=== PATIENT | male | born 1960 | race Caucasian/White ===

== ENCOUNTER 2017-12-26 14:43 | Inpatient (IN) | payer OTHER, MEDICARE ==
[~2017-12-26] VITALS: Ht 193 cm; Wt 98.4 kg
[2017-12-26] VITALS (7 sets, daily range): BP systolic 81–100; BP diastolic 46–56
[~2017-12-26 14:43] MED LIST: ASPIRIN EC81 M1 PO; ATORVASTATIN CA10 M1 PO; ATORVASTATIN CA40 MG PO; CEFAZOLIN SODIUM1 G1 IV; CEFAZOLIN2 GM/10 ML IV; CLOPIDOGREL75 M1 PO; ECONAZOLE NITRA15 GM TOP; FLAGYL500 MG PO; LATANOPROST2.5 ML OPH; LEVEMIR FL300 UNITS/ SC; LIDOCAINE-PRILO30 GM TOP; LIDOCAINE-PRILOCAINE; LINZESS145 MC1 PO; LISINOPRIL2.5 MG PO; LOPRESSOR50 M1 PO; LOVAZA1 G1 PO; METOPROLOL TART25 M1 PO; METOPROLOL TART50 M1 PO; METOPROLOL TART50 MG PO; MULTI-DAY VITA1 EACH TOP; NOVOLOG 10300 UNITS/ SC; ONE TOUCH ULTRA TEST; PERCOCET 5-3251 EACH PO; RENVELA800 M1 PO; RENVELA800 MG PO; SENOKOT-S TABL1 EACH PO; SENSIPAR30 M1 PO; SENSIPAR60 M1 PO; VITAMIN B-121000 MC3 TOP; VITAMIN D31000 UNI2 TOP
--- NOTE | 2017-12-26 14:46 | ED GENERAL ADULT ---
History of Present Illness General Chief Complaint: General Adult Stated Complaint: BIBA FEVER, NOT FEELING WELL Source: patient, family Exam Limitations: no limitations Vital Signs & Intake/Output Vital Signs & Intake/Output Vital Signs Date Time Temp Pulse Resp B/P B/P Pulse O2 O2 Flow FiO2 Mean Ox Delivery Rate 12/26 2325 102.0 12/267 108 94 12/26 2214 106 22 90/55 96 Nasal 2.0L Cannula 12/26 2199 108 20 100/56 97 Nasal 2.0L Cannula 12/26 2144 110 22 99/56 97 Nasal 2.0L Cannula 12/26 2129 124 22 81/53 96 Nasal 2.0L Cannula 12/26 2114 108 20 95/47 96 Nasal 2.0L Cannula 12/26 2109 96 Nasal 2.0L Cannula 12/26 2109 100.3 124 20 88/46 96 Nasal 2.0L Cannula 12/26 2057 98.6 124 16 82/50 98 Nasal 2.0L Cannula 12/26 2013 126 82/48 12/26 1925 98 20 80/42 96 Nasal 2.0L Cannula 12/26 1844 99 20 82/48 96 Nasal 2.0L Cannula 12/26 1817 96 18 84/54 96 Nasal 2.0L Cannula 12/26 1800 92 20 82/50 97 Nasal 2.0L Cannula 12/26 1735 97.7 12/26 1734 88 20 80/48 94 Room Air 12/26 1725 97.7 92 18 78/52 96 Room Air 12/26 1710 101.3 105 18 64/46 97 Room Air 12/26 1546 103.0 12/26 1545 Room Air Room Air 12/26 1446 103.0 112 18 112/65 96 Nasal 2.0L Cannula Triage Nurses Notes Reviewed? yes Onset: Gradual Duration: day(s): Timing: recent history Injury Environment: home Severity: moderate HPI: 57YO male with hx of CAD s/p quadruple bypass and recent stent (09/23) on plavix , DM, HTN, ESRD on dialysis, sepsis and endocarditis presents to ED complaining of fevers and chills while at dialysis today. Patient states that for the past 2 days he has felt generalized fatigue. The patient once in the legs, fever, chills, mental fogginess. Per patient and his the symptoms are present during previous episodes of sepsis. Patient denies abdominal pain, vomiting, diarrhea, constipation, sore throat, congestion, cough, ear pain, skin rash, chest pain, dyspnea. (Patsy FISHER,Lynn Ledesma) Allergies Coded Allergies: midodrine (HIVES 12/26/17) Reconcile Medications Aspirin (Ecotrin*) 81 MG TABLET.DR 1 TAB PO DAILY HEART/BLOOD (Reported) Atorvastatin Calcium 10 MG TABLET 1 TAB PO DAILY CHOLESTEROL (Reported) Cholecalciferol (Vitamin D3) (Vitamin D3) 2,000 UNIT TABLET 3 TAB PO DAILY VITAMIN SUPPORT (Reported) Cinacalcet HCl (Sensipar) 30 MG TABLET 1 TAB PO DAILY KIDNEYS (Reported) Clopidogrel Bisulfate (Clopidogrel) 75 MG TABLET 1 TAB PO DAILY BLOOD THINNER (Reported) Cyanocobalamin (Vitamin B-12) 1,000 MCG TABLET 1 TAB PO DAILY VITAMIN SUPPORT (Reported) Docusate Sodium 100 MG CAPSULE 1 CAP PO DAILY CONSTIPATION (Reported) Famotidine (Pepcid AC) 20 MG TABLET 1 TAB PO DAILY PRN GI (Reported) Folic Acid/Vit Bcomp,C (Dialyvite 800 Tablet) 0.8 MG TABLET 1 TAB PO DAILY VITAMIN SUPPORT (Reported) Lisinopril 2.5 MG TABLET 1 TAB PO DAILY HEART (Reported) Metoprolol Tartrate 25 MG TABLET 1 MG PO BID HEART/BP (Reported) Metoprolol Tartrate 25 MG TABLET 1 TAB PO Tuesday HEART/BP ( Reported) Metoprolol Tartrate (Lopressor) 50 MG TABLET 1 TAB PO BID HEART (Reported) Multivitamin (Daily Multiple Vitamin) 1 EACH TABLET 1 TAB PO DAILY VITAMIN SUPPORT (Reported) [employer]-3 Acid Ethyl Esters (Lovaza) 1 GRAM CAPSULE 1 CAP PO BID CHOLESTEROL ( Reported) Oxycodone HCl/Acetaminophen (Percocet 5-325 MG Tablet) 5 MG-325 MG TABLET 1 TAB PO Q6-PRN PRN PAIN (Reported) Sennosides (Senokot) 8.6 MG TABLET 1-2 TAB PO QPM CONSTIPATION (Reported) Sevelamer Carbonate (Renvela) 800 MG TABLET 1 TAB PO WM KIDNEYS (Reported) (Rusty MARTINEZ,Reginaldo Manzanares) Past History Travel History Traveled to [place] past 21 day No Medical History Any Pertinent Medical History? see below for history Neurological: NONE EENT: diabetic retinopathy Cardiovascular: CAD, hypertension, hyperlipidemia, PVD Respiratory: obstructive sleep apnea Hepatic: NONE Renal: ESRD on HD Musculoskeletal: RBKA Psychiatric: NONE Endocrine: diabetes, TYPE II Blood Disorders: anemia Cancer(s): NONE NURSE MIDWIFE/CLINICAL INSTRUCTOR/Reproductive: NONE History of MRSA: No History of VRE: No History of CDIFF: Yes Surgical History Surgical History: CABG, hernia repair-incisional, RIGHT BELOW THE KNEE AMPUTATION IN 2010 with revision 6 months postop status post left forearm AV fistula status post gastric sleeve status post angioplasty of the left popliteal artery, tibioperoneal trunk and posterior tibial artery Psychosocial History Who do you live with Spouse Services at Home Nursing, Occupational Therapy, Physical Therapy What is your primary language Portuguese Family History Hx Contributory? No (Lynn Mello) Review of Systems Review of Systems Constitutional: Reports: see HPI. EENTM: Reports: no symptoms. Respiratory: Reports: no symptoms. Cardiovascular: Reports: no symptoms. GI: Reports: no symptoms. Genitourinary: Reports: no symptoms. Musculoskeletal: Reports: no symptoms. Skin: Reports: no symptoms. Neurological/Psychological: Reports: no symptoms. Hematologic/Endocrine: Reports: no symptoms. Immunologic/Allergic: Reports: no symptoms. All Other Systems: Reviewed and Negative (Lynn Mello) Physical Exam Physical Exam General Appearance: well developed/nourished, no apparent distress, alert, awake Head: atraumatic, normal appearance Eyes: Bilateral: normal appearance, PERRL. Ears, Nose, Throat: normal pharynx, normal ENT inspection, hearing grossly normal Neck: normal inspection, supple, full range of motion Respiratory: normal breath sounds, no respiratory distress, lungs clear Cardiovascular: tachycardia Gastrointestinal: normal bowel sounds, soft, non-tender, no organomegaly Back: normal inspection, normal range of motion Extremities: normal range of motion, RLE amputation below knee Neurologic/Psych: awake, alert, oriented x 3 Skin: intact, normal color, warm/dry Core Measures ACS in differential dx? Yes CVA/TIA Diagnosis: No Sepsis Present: Yes Sepsis Focused Exam Completed? Yes (Lynn Mello) Progress Differential Diagnoses I considered the following diagnoses in my evaluation of the patient: [Sepsis, pneumonia, influenza, ACS, endocarditis, atrial fibrillation, arrhythmia, electrolyte abnormality] Plan of Care: Orders Procedure Date/time Status Heart Healthy Diet 12/27 B Active ICU LAB BUNDLE 12/27 0500 Active CBC WITHOUT DIFFERENTIAL 12/27 0500 Active TROPONIN LEVEL 12/26 2245 Active MAGNESIUM 12/26 2245 Active POTASSIUM 12/26 2245 Active WESTERGREN SED RATE 12/26 2245 Active EKG 12/26 2245 Active FingerStick- Glucose 12/26 2155 Active Wound Care/Dressing 12/26 215 Active Weight 12/26 215 Active VTE Mechanical Prophylaxis 12/26 215 Active Vital Signs 12/26 2153 Active Turn and Reposition 12/26 2153 Active Drains/Tubes 12/26 2153 Complete Teach/Educate 12/26 2153 Active Skin Integrity Protocol 12/26 2153 Active Skin/Pressure Ulcer Assess (Sk 12/26 2153 Active Precautions 12/26 2153 Active Pain Treatment and Response 12/26 2153 Active Nutritional Intake, Monitor 12/26 2153 Active Isolation 12/26 2153 Active CIWA 12/26 2153 Complete Patient Care Conference 12/26 2153 Active Activity/Ambulation 12/26 2153 Active VRE ACTIVE SURVIELLANCE 12/26 192 Active ACTIVE SURVEILLANCE NARES 12/26 192 Active TRC EVALUATION (GEN) 12/26 1913 Complete ECHOCARDIOGRAM 12/26 1904 Active US-SUPERFICIAL IMAGING EXTREMI 12/26 1902 Active STREP PNEUMO URINARY ANTIGEN 12/26 1858 Active LEGIONELLA URINARY ANTIGEN 12/26 1858 Active OXYGEN SETUP (GEN) 12/26 1857 Active PARTIAL THROMBOPLASTIN TIME 12/26 1857 Complete PROTHROMBIN TIME 12/26 1857 Complete ED Holding Orders 12/26 1845 Active Admit to inpatient 12/26 1845 Active Vital Signs 12/26 1845 Complete Code Status 12/26 1845 Active LACTIC ACID 12/26 1808 Complete Patient Data 12/26 1728 Active Admit to inpatient 12/26 1719 Active Patient Data 12/26 1639 Active THYROID STIMULATING HORMONE 12/26 1542 Active THYROXINE 12/26 1542 Active PROLACTIN 12/26 1542 Active GLYCOSYLATED HGB 12/26 1542 Active B-TYPE NATRIURETIC PEP (BNP) 12/26 1542 Active URINALYSIS 12/26 1509 Active RAPID VIRAL INFLUENZA A 12/26 1508 Complete BLOOD CULTURE 12/26 1508 Active TROPONIN LEVEL 12/26 1508 Active LACTIC ACID 12/26 1508 Active COMPREHENSIVE METABOLIC PANEL 12/26 1508 Active CBC WITHOUT DIFFERENTIAL 12/26 1508 Complete EKG 12/26 1508 Active Intake & Output 12/26 1449 Active CONTIN. POSITIVE AIRWAY PRESS 12/26 UNK Complete Lab Add-on Test 12/26 UNK Active Vital Signs 12/26 UNK Active Current Medications Sig/Bobo Start time Last Medication Dose Stop Time Status Admin Ceftazidime 1,000 MG Q24H 12/27 1800 AC (Fortaz) Atorvastatin Calcium 10 MG 1700 12/27 1700 AC (Lipitor) Aspirin Buffered 81 MG DAILY 12/27 1000 AC (Ecotrin) Cinacalcet 30 MG DAILY 12/27 1000 AC (Sensipar) Clopidogrel Bisulfate 75 MG DAILY 12/27 1000 AC (Plavix) Cyanocobalamin 1,000 MCG DAILY 12/27 1000 AC (Vitamin B12) Docusate Sodium 100 MG DAILY 12/27 1000 AC (Colace) Multivitamins 1 TAB DAILY 12/27 1000 AC (Nephrocaps) Sevelamer Carbonate 800 MG WM 12/27 0800 AC (Renvela) Heparin Sodium 5,000 UNIT Q8 12/27 0600 AC (Porcine) Acetaminophen 650 MG Q4P PRN 12/26 2100 AC 12/26 (Tylenol) 2326 Laboratory Tests 12/26/17 2320: Potassium Pending, Magnesium Pending, Troponin I Pending, ESR Westergren Pending 12/26/172021: Lactic Acid 1.0 12/26/17 1542: Anion Gap 16, Estimated GFR 18 L, BUN/Creatinine Ratio 6.0 L, Glucose 133 H, Hemoglobin A1c Pending, Lactic Acid 1.4, Calcium 8.8, Total Bilirubin 0.6, AST 13 L, ALT 18 L, Alkaline Phosphatase 121, Troponin I 0.05, Vmb-G-Erleohnjcfy Pept 42755 H, Total Protein 6.9, Albumin 3.9, Globulin 3.0, Albumin/Globulin Ratio 1.3, TSH 0.801, Thyroxine (T4) 5.2, Prolactin 29.3 H, PT 11.9, INR 1.13, APTT 28, CBC w Diff NO MAN DIFF REQ, RBC 3.31 L, MCV 92.5, MCH 30.8, MCHC 33.3, RDW 15.2 H, MPV 9.6, Gran % 91.7 H, Lymphocytes % 3.7 L, Monocytes % 3.7, Eosinophils % 0.5, Basophils % 0.4, Absolute Granulocytes 3.7, Absolute Lymphocytes 0.1 L, Absolute Monocytes 0.1, Absolute Eosinophils 0, Absolute Basophils 0 Microbiology 12/26 2119 UPPER RESP: Surveillance Culture - RECD 12/26 2119 GI: Surveillance Culture - RECD 12/26 1857 URINE ROUT: Legionella Antigen - COLB 12/26 1857 URINE ROUT: Streptococcus pneumoniae Antigen (M - COLB 12/26 1700 BLOOD: Blood Culture - RECD 12/26 1542 BLOOD: Blood Culture - RECD 12/26 1525 NASOPHARYN: Influenza Virus A & B Rapid Smear - COMP Patient afebrile here in the emergency department. EKG shows atrial fibrillation which is changed from prior study which was in normal sinus rhythm. EKG also shows ST depressions in leads V1 through V3. Patient's reports that during previous episode of sepsis patient had atrial fibrillation. Patient has significant past medical history including sepsis, and a carditis, end-stage renal disease. Chest x-ray shows likely pneumonia. This patient likely requires telemetry admission given current infection with EKG changes. Must further rule out sepsis. Blood cultures sent to the lab. This patient requires IV antibiotics, repeat EKGs, repeat troponins, cardiology consult. This patient will likely require over [address] Long present to see and evaluate the patient. Dr. Long spoke with hospitalist regarding this patient's telemetry admission. Blood pressure is trending downward, patient exhibiting signs of sepsis. Will admit to ICU given hypotension. Patient medicated with 1L NS from EMS. Given additional 2L here in the ED. Case management agrees with this plan. Diagnostic Imaging: Viewed by Me: Radiology Read. Discussed w/RAD: Radiology Read. Radiology Impression: PATIENT: YOANA QUEZADA PRESENT AGE: 57 PATIENT ACCOUNT NO: [id number] : 61 LOCATION: [facility] ORDERING PHYSICIAN: Lynn FISHER SERVICE DATE: 12/26/17 EXAM TYPE: RAD - XRY-CHEST XRAY, TWO VIEWS EXAMINATION: XR CHEST CLINICAL INFORMATION : Evaluate for pneumonia. Fever and malaise COMPARISON: Chest x-ray most recent prior dated 10/09/2017 TECHNIQUE: 2 views of the chest were obtained. FINDINGS: Low lung volumes. Subtle airspace opacity retrocardiac region left base suspicious for pneumonia. Bilateral effusion, left slightly greater than right. Status post median sternotomy and CABG. Coronary artery calcification. IMPRESSION: Findings are suspicious for left lower lobe pneumonia. Trace bilateral effusions, left base slightly greater than right. DICTATED BY: Ana Sanchez MD DATE/TIME DICTATED:12/26/171549 DENTAL CLAIMS PROCESSOR:SANDEEP DATE/ TIME TRANSCRIBED:12/26/171549 CONFIDENTIAL, DO NOT COPY WITHOUT APPROPRIATE AUTHORIZATION. <Electronically signed in Other Vendor System> SIGNED BY: Ana Sanchez MD 12/26/17 1600 Initial ED EKG: atrial fibrillation, rate 112, ST depresions V1-V3 Prior EKG: changed (10/16/17) (Patsy FISHER,Lynn Ledesma) Differential Diagnoses I considered the following diagnoses in my evaluation of the patient: (Paul Long DO) Departure Departure Disposition: STILL A PATIENT Condition: Stable Clinical Impression Primary Impression: Pneumonia Secondary Impressions: A-fib, Acute electrocardiogram changes Referrals: Michelle MARTINEZ,Clinton Sinclair (PCP/Family) Departure Forms: Customer Survey General Discharge Information Admission Note Spoke With: Karen MARTINEZ,Enma Merino Documentation of Exam: Documentation of any treatments & extenuating circumstances including Concerns Regarding Discharge (functional status, medication knowledge or non-compliance, living conditions, etc.) that warrant an admission rather than observation: [ Pneumonia with atrial fibrillation and EKG changes requiring telemetry admission for repeat EKGs, IV antibiotics, repeat blood work/opponens, cardiology consult] (Lynn Mello) Admission Note Documentation of Exam: Documentation of any treatments & extenuating circumstances including Concerns Regarding Discharge (functional status, medication knowledge or non-compliance, living conditions, etc.) that warrant an admission rather than observation: I've seen and personally examined the patient and I agree with the PAs evaluation. 57-year-old with paroxysmal A. fib. History of endocarditis. Now he comes in with fever. Chest x-ray shows pneumonia. EKG shows A. fib. He has ST-T wave depressions in V1 through V3. Negative chest pain. Troponin was negative, lactic acid was negative; however the patient became hypotensive. He was treated with IV fluids, IV antibiotics given, admitted to the ICU, central line to be placed by Dr. Ojeda at house staff. PA/AGENCY APPOINTMENTS SUPERVISOR Co-Sign Statement Statement: ED Attending supervision documentation- [x] I saw and evaluated the patient. I have also reviewed all the pertinent lab results and diagnostic results. I agree with the findings and the plan of care as documented in the PA's/AGENCY APPOINTMENTS SUPERVISOR's documentation. [] I have reviewed the ED Record and agree with the PA's/AGENCY APPOINTMENTS SUPERVISOR's documentation. [] Additions or exceptions (if any) to the PAs/AGENCY APPOINTMENTS SUPERVISOR's note and plan are summarized below: [] (Paul Long DO) PA/AGENCY APPOINTMENTS SUPERVISOR Co-Sign Statement Statement: ED Attending supervision documentation- [] I saw and evaluated the patient. I have also reviewed all the pertinent lab results and diagnostic results. I agree with the findings and the plan of care as documented in the PA's/AGENCY APPOINTMENTS SUPERVISOR's documentation. [X] I have reviewed the ED Record and agree with the PA's/AGENCY APPOINTMENTS SUPERVISOR's documentation. [] Additions or exceptions (if any) to the PAs/AGENCY APPOINTMENTS SUPERVISOR's note and plan are summarized below: [] (Rusty MARTINEZ,Reginaldo Manzanares) Procedures Central Line Central Line Lumen: triple Central Line Procedure: Yes: bentadine prep?, sterile drapes applied, sterile dressing applied. Central Line Position: femoral (R) Anesthesia: lidocaine 1% CC's of Anesthesia: 6 Complications: none Central Line Post Position: sutured, good blood return Progress: excellent hemostasis, no complications. (Rusty MARTINEZ,Reginaldo Manzanares) Critical Care Note Critical Care Note Critical Care Time: 30-74 min (Lynn Mello) ED Sepsis Exam Date of Focused Sepsis Exam: 12/26/17 Time of Focused Sepsis Exam: 1700 Sepsis Cardiac Exam: irregular rhythm Sepsis Resp Exam: CTA Sepsis Cap Refill Exam: <2 Sec Sepsis Peripheral Pulse Exam: Normal Sepsis Peripheral Pulse Location: Radial Sepsis Skin Color Exam: Pale (MILD, may be patient's baselin) Skin Temp/Moisture Exam: Warm/Dry (Lynn Mello)
[2017-12-26] MEDS ORDERED: VITAMIN D32000 UNI1 PO (15:02)
[2017-12-26] MEDS ORDERED: DAILY MULTIPLE1 EACH PO (15:03)
[2017-12-26] MEDS ORDERED: DIALYVITE 8000.8 MG PO (15:03)
[2017-12-26] MEDS ORDERED: DOCUSATE SODIU100 M3 PO (15:04)
[2017-12-26] MEDS ORDERED: LISINOPRIL2.5 M1 PO (15:05)
[2017-12-26] MEDS ORDERED: LOPRESSOR50 M1 PO (15:05)
[2017-12-26] MEDS ORDERED: MIDODRINE HCL10 M1 PO (15:06)
[2017-12-26] MEDS ORDERED: VITAMIN B-121000 MC3 PO (15:07)
[2017-12-26] MEDS ORDERED: PEPCID AC20 M2 PO (15:07)
[2017-12-26] MEDS ORDERED: SENOKOT8.6 M2 PO (15:11)
[2017-12-26] MEDS ORDERED: PERCOCET 5-3251 EACH PO (15:12)
[2017-12-26 15:59] LABS: ABSOLUTE BASOPHIL COUNT 0 /CUMM (0.0-0.2); ABSOLUTE EOSINOPHIL COUNT 0 /CUMM (0.0-0.7); ABSOLUTE GRANULOCYTE CT 3.7 /CUMM (1.4-6.5); ABSOLUTE LYMPH COUNT 0.1 /CUMM (1.2-3.4); ABSOLUTE MONOCYTE COUNT 0.1 /CUMM (0.10-0.60); BASOPHIL % 0.4 % (0.0-2.0); EOSINOPHIL % 0.5 % (0-5); GRANULOCYTE % 91.7 % (42.2-75.2); HEMATOCRIT 30.6 % (42-52); MEAN CORPUSCULAR HGB 30.8 PG (27.0-31.0); MEAN CORPUSCULAR HGB CONC 33.3 G/DL (33.0-37.0); MEAN CORPUSCULAR VOLUME 92.5 FL (80.0-94.0); MEAN PLATELET VOLUME 9.6 FL (7.4-10.4); PLATELET COUNT 83 /CUMM (130-400); RBC DISTRIBUTION WIDTH 15.2 % (11.5-14.5); RED BLOOD CELL CT 3.31 /CUMM (4.70-6.10)
--- NOTE | 2017-12-26 16:00 | RADIOLOGY REPORT ---
EXAMINATION: XR CHEST CLINICAL INFORMATION: Evaluate for pneumonia. Fever and malaise COMPARISON: Chest x-ray most recent prior dated 10/09/2017 TECHNIQUE: 2 views of the chest were obtained. FINDINGS: Low lung volumes. Subtle airspace opacity retrocardiac region left base suspicious for pneumonia. Bilateral effusion, left slightly greater than right. Status post median sternotomy and CABG. Coronary artery calcification. IMPRESSION: Findings are suspicious for left lower lobe pneumonia. Trace bilateral effusions, left base slightly greater than right.
--- NOTE | 2017-12-26 16:48 | Admission Certification ---
Admission Certification Certification Statement - As attending physician, I certify that at the time of - admission, based on clinical presentation, severity of - symptoms, need for further diagnostic testing and - therapeutic interventions, and risk of adverse outcomes - without in-hospital treatment, in my clinical assessment, - this patient requires an acute hospital stay for a minimum - of two nights or longer. I have also considered psychsocial - factors such as support system, advanced age, financial - issues, cognitive issues, and failed out-patient treatments, - past re-admission history, safety of patient, and lack of - compliance as applicable. Specific rationale supporting this admission is: pneumonia in pt with recent infective endocarditis and ESRD on hd.
--- NOTE | 2017-12-26 16:48 | PN- Att Addend ---
Attending MD Review Statement Attending Statement Attending MD Statement: examined this patient, discuss w/resident/PA/PEANUT CLEANER, agreed w/resident/PA/PEANUT CLEANER, reviewed EMR data (avail), discussed w/nursing Attending Assessment/Plan: Laboratory Tests 12/26/17 1542: Anion Gap 16, Estimated GFR 18 L, BUN/Creatinine Ratio 6.0 L, Glucose 133 H, Lactic Acid 1.4, Calcium 8.8, Total Bilirubin 0.6, AST 13 L, ALT 18 L, Alkaline Phosphatase 121, Troponin I 0.05, Total Protein 6.9, Albumin 3.9, Globulin 3.0, Albumin/Globulin Ratio 1.3, CBC w Diff NO MAN DIFF REQ, RBC 3.31 L, MCV 92.5, MCH 30.8, MCHC 33.3, RDW 15.2 H, MPV 9.6, Gran % 91.7 H, Lymphocytes % 3.7 L, Monocytes % 3.7, Eosinophils % 0.5, Basophils % 0.4, Absolute Granulocytes 3.7, Absolute Lymphocytes 0.1 L, Absolute Monocytes 0.1, Absolute Eosinophils 0, Absolute Basophils 0 Microbiology 12/26 1525 NASOPHARYN: Influenza Virus A & B Rapid Smear - COMP Vital Signs Date Time Temp Pulse Resp B/P B/P Pulse O2 O2 Flow FiO2 Mean Ox Delivery Rate 12/26 1546 103.0 12/26 1446 103.0 112 18 112/65 96 Nasal 2.0L Cannula 57 yr M with pmh significant for CAD s/p recent PCI with one drug-eluting stent in left main circumflex artery in September 13, 2017 at [facility], history of CABG 10 years ago, end-stage renal disease on dialysis for 5 years, right below knee amputation, history of gastric sleeve, obstructive sleep apnea, h/o rt knee septic arthritis in 2015 with osteomyelitis and rt BKA stump abscess, and history of anemia recently admited to [facility] for right BKA stump swelling and pain on October 09. Pt was dced on 10/10/17 to [facility] with the diagnosis of infective endocarditis with MSSA and was on abx till Mid of November which he was getting with his Hemodialysis. Pt was dced to home about 3-4 weeks ago and was getting home PT twice a week. Pts at bedside told that pt was behaving oddly in the last day or two and today at dialysis was found to have high HR. Pt in ER found to have Temp of 103, Wbc of 4k, Plt of 83 and his BP dropped while he was in ER to 64/46 and is being given fluid bolus in ER and his pressure has improved to 80s. On examination of his leg there is no redness or warmth noted in the rt stump . Plan is to admit him to ICU given his sepsis with leukopenia and hypotension. Severe Sepsis- with cxr finding of left lower lobe infiltrates. will admit to ICU given the sepsis and hypotension , will give iv fluids but given pts ESRD on HD will have to limit fluids and will start pressors if BP does not improve. Pt was given iv vanco and ceftazidime in the ER will cont with those. Will monitor him closely for any deterioration. Will get an echocardiogram and will get ID consult. ICU consult will be placed. Will f/u on blood cultures. Will get echo in am and will get nephrology consult . Will get soft tissue ultrasound of the rt stump. ER is going to place a central line in case pt needs pressors overnight . CAD s/p recent ARIEL and h/o CABG in past- will monitor and repeat EKG in am. Will do serial trop and will cont his antiplatelet therapy. If trop become positive will get cardiology consult. EKG showed some non specific changes so will get cardiology consult in am. d/w pt and pts at bedside the care plan.
--- NOTE | 2017-12-26 17:11 | History & Physical ---
General Information and HPI Allergies/Medications Allergies: Coded Allergies: No Known Allergies (10/09/17) Home Med list Aspirin (Ecotrin*) 81 MG TABLET.DR 1 TAB PO DAILY HEART/BLOOD (Reported) Atorvastatin Calcium 10 MG TABLET 1 TAB PO DAILY CHOLESTEROL (Reported) Cholecalciferol (Vitamin D3) (Vitamin D3) 2,000 UNIT TABLET 3 TAB PO DAILY VITAMIN SUPPORT (Reported) Cinacalcet HCl (Sensipar) 30 MG TABLET 1 TAB PO DAILY KIDNEYS (Reported) Clopidogrel Bisulfate (Clopidogrel) 75 MG TABLET 1 TAB PO DAILY BLOOD THINNER (Reported) Cyanocobalamin (Vitamin B-12) 1,000 MCG TABLET 1 TAB PO DAILY VITAMIN SUPPORT (Reported) Docusate Sodium 100 MG CAPSULE 1 CAP PO DAILY CONSTIPATION (Reported) Famotidine (Pepcid AC) 20 MG TABLET 1 TAB PO DAILY PRN GI (Reported) Folic Acid/Vit Bcomp,C (Dialyvite 800 Tablet) 0.8 MG TABLET 1 TAB PO DAILY VITAMIN SUPPORT (Reported) Lisinopril 2.5 MG TABLET 1 TAB PO DAILY HEART (Reported) Metoprolol Tartrate 25 MG TABLET 1 MG PO BID HEART/BP (Reported) Metoprolol Tartrate 25 MG TABLET 1 TAB PO Tuesday HEART/BP ( Reported) Metoprolol Tartrate (Lopressor) 50 MG TABLET 1 TAB PO BID HEART (Reported) Midodrine HCl 10 MG TABLET 1 TAB PO DAILY UNKNOWN (Reported) Multivitamin (Daily Multiple Vitamin) 1 EACH TABLET 1 TAB PO DAILY VITAMIN SUPPORT (Reported) [place]-3 Acid Ethyl Esters (Lovaza) 1 GRAM CAPSULE 1 CAP PO BID CHOLESTEROL ( Reported) Oxycodone HCl/Acetaminophen (Percocet 5-325 MG Tablet) 5 MG-325 MG TABLET 1 TAB PO Q6-PRN PRN PAIN (Reported) Sennosides (Senokot) 8.6 MG TABLET 1-2 TAB PO QPM CONSTIPATION (Reported) Sevelamer Carbonate (Renvela) 800 MG TABLET 1 TAB PO WM KIDNEYS (Reported) Past History Travel History Traveled to [place] past 21 day No Medical History Neurological: NONE EENT: diabetic retinopathy Cardiovascular: CAD, hypertension, hyperlipidemia, PVD, ENDOCARDITIS SEPSIS Respiratory: obstructive sleep apnea, USES CPAP Gastrointestinal: BARIATRIC SX-SLEEVE C-DIFF Hepatic: NONE Renal: ESRD on HD, nephrolithiasis, AVF L ARM Musculoskeletal: RBKA ABSCESS ON STUMP Psychiatric: NONE Endocrine: diabetes, TYPE II Blood Disorders: anemia Cancer(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 spouse Services at Home: Nursing, Occupational Therapy, Physical Therapy ETOH Use: occasional use Illicit Drug Use: denies illicit drug use Functional Ability ADLs Independent: dressing, eating, toileting, bathing. Ambulation: independent, cane, Prosthesis IADLs Independent: shopping, housework, finances, food prep, telephone, transportation , medication admin. Core Measures/Misc (07/24) Cerebrovascular Accident CVA/TIA Diagnosis: No Sepsis (View protocol) Sepsis Present: Yes
--- NOTE | 2017-12-26 18:46 | History & Physical ---
Sunitha Ward 12/26/17 1846: General Information and HPI MD Statement: I have seen and personally examined DAMIENYOANA HOLLOWAY and documented this H&P. The patient is a 57 year old M who presented with a patient stated chief complaint of hypotension and fatigue Source of Information: patient, family, old records Exam Limitations: no limitations History of Present Illness: 57-year-old gentleman with past medical history significant for coronary artery disease, recent status post PCI with one drug-eluting stent in left main circumflex artery in September 2017, CAD s/p quadriple CABG (2006), history of T2DM, end-stage renal disease due to diabetic nephropathy on dialysis Tuesday, right below knee amputation s/p a nonunion open ankle fracture which was complicated by MSSA right septic knee requiring arthroscopic drainage and I&D; treated with 4 week course of IV Cefazolin (2015), history of gastric sleeve, obstructive sleep apnea on CPAP at night, chronic anemia. Last admission to [facility] for right knee septic arthritis (staph aureus), recent admission to [facility] 10/23 for Staph aureus aureus sepsis/mitral valve endocarditis/osteomyelitis status post I&D of a right BKA stump abscess treated with six-week course of Cefazolin (last dose on 11/23/2016) at this admission he was also treated for c. Difficile with ten-day course of Flagyl, today he was brought from [facility] where he was undergoing dialysis for tachycardia and hypotension. was at bedside. He was discharged home from [facility] 3 weeks ago and since then he has been working with PT and had advanced from wheelchair to trying out his new prosthesis. He had also gone to see Dr. Garcia his vascular surgeon Nov 08 for a follow-up and was told that his stump was healing well. Since the past 2 days patient reports feeling fatigue and some chills. Today he also feels a bit short of breath. also noticed that he didn't seem quite himself for the last 2 days napping when he usually doesn't. Denies chest pain, palpitations, no documented fever at home, cough, upper respiratory symptoms, sick contacts,, nausea/vomiting, diarrhea/constipation or headaches. Allergies/Medications Allergies: Coded Allergies: midodrine (HIVES 12/26/17) Home Med list Aspirin (Ecotrin*) 81 MG TABLET.DR 1 TAB PO DAILY HEART/BLOOD (Reported) Atorvastatin Calcium 10 MG TABLET 1 TAB PO DAILY CHOLESTEROL (Reported) Cholecalciferol (Vitamin D3) (Vitamin D3) 2,000 UNIT TABLET 3 TAB PO DAILY VITAMIN SUPPORT (Reported) Cinacalcet HCl (Sensipar) 30 MG TABLET 1 TAB PO DAILY KIDNEYS (Reported) Clopidogrel Bisulfate (Clopidogrel) 75 MG TABLET 1 TAB PO DAILY BLOOD THINNER (Reported) Cyanocobalamin (Vitamin B-12) 1,000 MCG TABLET 1 TAB PO DAILY VITAMIN SUPPORT (Reported) Docusate Sodium 100 MG CAPSULE 1 CAP PO DAILY CONSTIPATION (Reported) Famotidine (Pepcid AC) 20 MG TABLET 1 TAB PO DAILY PRN GI (Reported) Folic Acid/Vit Bcomp,C (Dialyvite 800 Tablet) 0.8 MG TABLET 1 TAB PO DAILY VITAMIN SUPPORT (Reported) Lisinopril 2.5 MG TABLET 1 TAB PO DAILY HEART (Reported) Metoprolol Tartrate 25 MG TABLET 1 MG PO BID HEART/BP (Reported) Metoprolol Tartrate 25 MG TABLET 1 TAB PO Tuesday HEART/BP ( Reported) Metoprolol Tartrate (Lopressor) 50 MG TABLET 1 TAB PO BID HEART (Reported) Multivitamin (Daily Multiple Vitamin) 1 EACH TABLET 1 TAB PO DAILY VITAMIN SUPPORT (Reported) [place]-3 Acid Ethyl Esters (Lovaza) 1 GRAM CAPSULE 1 CAP PO BID CHOLESTEROL ( Reported) Oxycodone HCl/Acetaminophen (Percocet 5-325 MG Tablet) 5 MG-325 MG TABLET 1 TAB PO Q6-PRN PRN PAIN (Reported) Sennosides (Senokot) 8.6 MG TABLET 1-2 TAB PO QPM CONSTIPATION (Reported) Sevelamer Carbonate (Renvela) 800 MG TABLET 1 TAB PO WM KIDNEYS (Reported) Compliance With Home Meds: GOOD Past History Travel History Traveled to [place] past 21 day No Medical History Neurological: NONE EENT: diabetic retinopathy Cardiovascular: CAD, hypertension, hyperlipidemia, PVD, ENDOCARDITIS SEPSIS Respiratory: obstructive sleep apnea, USES CPAP Gastrointestinal: BARIATRIC SX-SLEEVE C-DIFF Hepatic: NONE Renal: ESRD on HD, nephrolithiasis, AVF L ARM Musculoskeletal: RBKA ABSCESS ON STUMP Psychiatric: NONE Endocrine: diabetes, TYPE II Blood Disorders: anemia 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 Home Who Do You Live With? spouse Services at Home: Nursing, Occupational Therapy, Physical Therapy ETOH Use: occasional use Illicit Drug Use: denies illicit drug use Functional Ability ADLs Independent: dressing, eating, toileting, bathing. Ambulation: independent, cane, Prosthesis IADLs Independent: shopping, housework, finances, food prep, telephone, transportation , medication admin. Review of Systems Review of Systems Constitutional: Reports: chills, weakness. Denies: diaphoresis, fever, malaise, unexplained weight loss. Cardiovascular: Denies: chest pain, edema, orthopena, palpitations, peripheral edema, syncope. Respiratory: Reports: short of breath. Denies: cough, hemoptysis, orthopnea, sputum production, stridor, wheezing. GI: Denies: abdominal pain, bloating, constipation, diarrhea, distention, bowel incontinence, melena, nausea, bloody stool, changes in stool, vomiting, steatorrhea. Genitourinary: Denies: discharge, dysuria, frequency, hematuria, hesitation, nocturia, pain, urgency. Musculoskeletal: Denies: back pain, gout, joint pain, joint swelling, muscle pain, muscle stiffness, neck pain. Skin: Denies: cysts, change in skin color, change in hair/nails, dryness, erythema, jaundice, lesions, lymphangitis, lumps, moles, rash. Exam & Diagnostic Data Last 24 Hrs of Vital Signs/I&O Vital Signs Date Time Temp Pulse Resp B/P B/P Pulse O2 O2 Flow FiO2 Mean Ox Delivery Rate 12/26 2057 98.6 124 16 82/50 98 Nasal 2.0L Cannula 12/26 2012 126 82/48 12/26 1925 98 20 80/42 96 Nasal 2.0L Cannula 12/26 1844 99 20 82/48 96 Nasal 2.0L Cannula 12/26 1817 96 18 84/54 96 Nasal 2.0L Cannula 12/26 1800 92 20 82/50 97 Nasal 2.0L Cannula 12/26 1735 97.7 12/26 1734 88 20 80/48 94 Room Air 12/26 1725 97.7 92 18 78/52 96 Room Air 12/26 1710 101.3 105 18 64/46 97 Room Air 12/26 1546 103.0 12/26 1545 Room Air Room Air 12/26 1446 103.0 112 18 112/65 96 Nasal 2.0L Cannula Intake & Output 12/26 1600 12/26 0800 12/26 0000 Intake Total Output Total Balance Patient 202 lb Weight Weight Reported by Patient Measurement Method Physical Exam General Appearance Alert, Oriented X3, Cooperative, No Acute Distress Skin No Rashes, No Breakdown, midline scar from cabg Skin Temp/Moisture Exam: Warm/Dry Sepsis Skin Exam (color): Pale HEENT Atraumatic, PERRLA, EOMI, dry mucous membranes Neck bounding right carotid artery Lymphatic Axillary nl, Cervical nl Cardiovascular irregular Lungs Clear to Auscultation, Normal Air Movement Abdomen Normal Bowel Sounds, Soft, No Tenderness, mid epigastric indurated mass from his hernia repair Neurological Normal Speech, Cranial Nerves 3-12 NL Extremities Normal Pulses (left extremity), right BKA stump, no swelling, redness, break in skin or increased warmth noted. well healed surgical scar. Last 24 Hrs of Labs/Brendan: Laboratory Tests 12/26/172021: Lactic Acid 1.0 12/26/17 1542: Anion Gap 16, Estimated GFR 18 L, BUN/Creatinine Ratio 6.0 L, Glucose 133 H, Hemoglobin A1c Pending, Lactic Acid 1.4, Calcium 8.8, Total Bilirubin 0.6, AST 13 L, ALT 18 L, Alkaline Phosphatase 121, Troponin I 0.05, Total Protein 6.9, Albumin 3.9, Globulin 3.0, Albumin/Globulin Ratio 1.3, TSH Pending, Thyroxine ( T4) 5.2, PT 11.9, INR 1.13, APTT 28, CBC w Diff NO MAN DIFF REQ, RBC 3.31 L, MCV 92.5, MCH 30.8, MCHC 33.3, RDW 15.2 H, MPV 9.6, Gran % 91.7 H, Lymphocytes % 3.7 L, Monocytes % 3.7, Eosinophils % 0.5, Basophils % 0.4, Absolute Granulocytes 3.7, Absolute Lymphocytes 0.1 L, Absolute Monocytes 0.1, Absolute Eosinophils 0, Absolute Basophils 0 Microbiology 12/26 1919 UPPER RESP: Surveillance Culture - COLB 12/26 1919 GI: Surveillance Culture - COLB 12/26 1857 URINE ROUT: Legionella Antigen - COLB 12/26 1857 URINE ROUT: Streptococcus pneumoniae Antigen (M - COLB 12/26 1700 BLOOD: Blood Culture - RECD 12/26 1542 BLOOD: Blood Culture - RECD 12/26 1525 NASOPHARYN: Influenza Virus A & B Rapid Smear - COMP Diagnostic Data EKG Results Atrial fibrillation CXR Results FINDINGS: Low lung volumes. Subtle airspace opacity retrocardiac region left base suspicious for pneumonia. Bilateral effusion, left slightly greater than right. Status post median sternotomy and CABG. Coronary artery calcification. IMPRESSION: Findings are suspicious for left lower lobe pneumonia. Trace bilateral effusions, left base slightly greater than right. Assessment/Plan Assessment: 57-year-old gentleman with past medical history significant for coronary artery disease, recent status post PCI with one drug-eluting stent in left main circumflex artery in September 2017, CAD s/p quadriple CABG (2006), history of T2DM, end-stage renal disease due to diabetic nephropathy on dialysis Tuesday, right below knee amputation s/p a nonunion open ankle fracture which was complicated by MSSA right septic knee requiring arthroscopic drainage and I&D; treated with 4 week course of IV Cefazolin (2015), history of gastric sleeve, obstructive sleep apnea on CPAP at night, chronic anemia. Last admission to [facility] for right knee septic arthritis (staph aureus), recent admission to [facility] 10/23 for Staph aureus aureus sepsis/mitral valve endocarditis/osteomyelitis status post I&D of a right BKA stump abscess treated with six-week course of Cefazolin (last dose on 11/23/2016) at this admission he was also treated for c. Difficile with ten-day course of Flagyl, today he was brought from [facility] where he was undergoing dialysis for tachycardia and hypotension. Vitals on admission: Tmax 103, HR 124, blood pressure 64/46--> status post 2 L bolus 78/52 Labs significant for WBC 4.0, hemoglobin 10.2, hematocrit 30.6, platelets 83, sodium 143, potassium 3.4, chloride 103, bicarbonate 24, BUN 21, creatinine 3.5, glucose 133, lactic acid 1.4, AST 13 ALT 18, trop 0.05, UA pending Chest x-ray shows Subtle airspace opacity retrocardiac region left base suspicious for pneumonia. Bilateral effusion, left slightly greater than right. EKG shows: Atrial fibrillation with a rate of [address] depression seen in the 3 and V4 Assessment: Sepsis with possible sources being HCAP vs relapse/re infection IE vs right BKA stump infection. In ED he was given a total of 3L and femoral line was placed problem list: Sepsis Healthcare associated pneumonia Coronary artery disease status post CABG and drug-eluting stent Atrial fibrillation End-stage renal disease Thrombocytopenia Plan: Admit to ICU, vitals per protocol Will maintain a mean arterial pressure of more than 65, pressure support if needed Given 1 dose of vancomycin, as he is dialysis patient dosing is usually Q 48, will continue with renally dosed Fortaz 1 g every 24, ID consult in the morning. Follow-up blood and urine cultures, strep and Legionella urine antigen, ultrasound of right stump and ESR Will trend troponin/ EKG, TSH within normal limits follow up echocardiogram to look for any vegetations Currently in atrial fibrillation, patient also was noted to have one episode atrial fibrillation on last admission during the time that he was in sepsis. Discussed with attending that we will hold off AC at this time. Will obtain cardio consult. Continue with aspirin and Plavix. Patient is on 10 mg of statin may benefit from high intensity statin. Per patient is not sure why he is on 10 mg as he reports no side effects from statin We'll hold all his antihypertensives secondary to his hypotension Nephro consult. Continue his Renvela and Sensipar DVT prophylaxis with subcutaneous heparin Patient is a full code Update 12:32 second troponin 0.15. remains in a. fib. call back requested from ventilation equipment tender art instructor Dr. Jimenez. 1:15 am: Spoke to Bon Jimenez MD regarding patient's positive troponin and continued heart rate of A. fib with EKG changes of T-wave inversions in lead V3 and V4 in the setting of thrombocytopenia. His recommendation was that patient does meet criteria at this time to start IV heparin however we'll leave it at the discretion of the medicine team regarding thrombocytopenia. Patient has been bleeding from the site of Femoral line since its placement. Bleeding is minimal currently treating with compression. Discussed with attending. Will guaiac patient and repeat stat CBC if no further drop in H&H then will start IV heparin. Sign out given to night team As Ranked By This Provider Problem List: 1. A-fib 2. Pneumonia 3. Sepsis Core Measures/Misc (07/24) Acute Coronary Syndrome ACS Diagnosis: No Congestive Heart Failure Congestive Heart Failure Diagnosis No Cerebrovascular Accident CVA/TIA Diagnosis: No VTE (View Protocol) VTE Risk Factors Age>40 No Mechanical VTE Prophylaxis d/t Physical Contraindication No VTE Pharm Prophylaxis d/t NA PharmProphylax ordered Sepsis (View protocol) Sepsis Present: Yes Enma Jones 01/02/18 1749: Attending MD Review Statement Attending Statement Attending MD Statement: examined this patient, discuss w/resident/PA/GAS METER READER, agreed w/resident/PA/GAS METER READER, reviewed EMR data (avail) Attending Assessment/Plan: please see my separate attending note for details.
[2017-12-26 20:03] LABS: PT 11.9 SEC (9.4-12.5); PTT 28 SEC (25-37)
[2017-12-27] VITALS (8 sets, daily range): BP systolic 82–109; BP diastolic 42–58
[2017-12-27 02:21] LABS: ABSOLUTE BASOPHIL COUNT 0 /CUMM (0.0-0.2); ABSOLUTE EOSINOPHIL COUNT 0 /CUMM (0.0-0.7); ABSOLUTE GRANULOCYTE CT 3.7 /CUMM (1.4-6.5); ABSOLUTE LYMPH COUNT 0.3 /CUMM (1.2-3.4); ABSOLUTE MONOCYTE COUNT 0.3 /CUMM (0.10-0.60); BASOPHIL % 0.2 % (0.0-2.0); EOSINOPHIL % 0 % (0-5); GRANULOCYTE % 85.8 % (42.2-75.2); HEMATOCRIT 26.6 % (42-52); MEAN CORPUSCULAR HGB 30.6 PG (27.0-31.0); MEAN CORPUSCULAR HGB CONC 33.1 G/DL (33.0-37.0); MEAN CORPUSCULAR VOLUME 92.4 FL (80.0-94.0); MEAN PLATELET VOLUME 9.9 FL (7.4-10.4); PLATELET COUNT 68 /CUMM (130-400); RBC DISTRIBUTION WIDTH 15.3 % (11.5-14.5); RED BLOOD CELL CT 2.88 /CUMM (4.70-6.10); WHITE BLOOD CELL COUNT 4.4 /CUMM (4.8-10.8)
--- NOTE | 2017-12-27 03:03 | Event Note ---
Event Note Event Note: Patient has a positive troponin and is in atrial fibrillation. As per Bon Jimenez MD it was decided to start him on IV heparin. Patient has minimal bleeding from the right femoral line and also his platelet count is dropping from 83-68. In view of thrombocytopenia and simultaneous bleeding we will hold IV heparin for now. Fe De Guzman MD made aware of the above decision. We will continue monitoring his complete blood count and we will send a DIC panel.
[2017-12-27 06:11] LABS: ABSOLUTE BASOPHIL COUNT 0 /CUMM (0.0-0.2); ABSOLUTE EOSINOPHIL COUNT 0 /CUMM (0.0-0.7); ABSOLUTE GRANULOCYTE CT 5.4 /CUMM (1.4-6.5); ABSOLUTE LYMPH COUNT 0.4 /CUMM (1.2-3.4); ABSOLUTE MONOCYTE COUNT 0.4 /CUMM (0.10-0.60); BASOPHIL % 0.5 % (0.0-2.0); EOSINOPHIL % 0 % (0-5); HEMATOCRIT 27.9 % (42-52); MEAN CORPUSCULAR HGB 30.8 PG (27.0-31.0); MEAN CORPUSCULAR HGB CONC 33.1 G/DL (33.0-37.0); MEAN CORPUSCULAR VOLUME 93.3 FL (80.0-94.0); PLATELET COUNT 90 /CUMM (130-400); RBC DISTRIBUTION WIDTH 15.4 % (11.5-14.5); RED BLOOD CELL CT 2.99 /CUMM (4.70-6.10); WHITE BLOOD CELL COUNT 6.2 /CUMM (4.8-10.8)
--- NOTE | 2017-12-27 07:50 | Cons- CRCU ---
Laron MARTINEZ,Jerzy 12/27/17 0750: General Information and HPI Consulting Request Date of Consult: 12/27/17 Requested By: Dr. Jones Reason for Consult: Septic shock Source of Information: patient, family, old records Exam Limitations: no limitations History of Present Illness: This is a 57-year-old gentleman w/ PMH of CAD recent PCI withdrug-eluting stent in . 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 Pt has pertinent recent admissions to for r. knee MSSA septic arthritis, and recent admission to ICU on 10/23 for MSSA osteomyelitis, bacteremia and mitral valve endocarditis. He had I&D of his right BKA stump abscess and then sent to [facility] for six-week course of Cefazolin (last dose on 11/23/2016). He was d/c from [facility] about 3 weeks ago. Previous admission was also pertinent for C. Difficile diarrhea with ten-day course of Flagyl. CC: [facility] where he was undergoing dialysis for tachycardia and hypotension. His noted that he has been more somnolent and lethargic over the past tow days. Pt c/o SOB, fatigue and chills. Denies chest pain, palpitations, no documented fever at home, cough, upper respiratory symptoms, sick contacts,, nausea/vomiting, diarrhea/constipation or headaches. Allergies/Medications Allergies: Coded Allergies: midodrine (HIVES 12/26/17) Home Med List: Aspirin (Ecotrin*) 81 MG TABLET.DR 1 TAB PO DAILY HEART/BLOOD (Reported) Atorvastatin Calcium 10 MG TABLET 1 TAB PO DAILY CHOLESTEROL (Reported) Cholecalciferol (Vitamin D3) (Vitamin D3) 2,000 UNIT TABLET 3 TAB PO DAILY VITAMIN SUPPORT (Reported) Cinacalcet HCl (Sensipar) 30 MG TABLET 1 TAB PO DAILY KIDNEYS (Reported) Clopidogrel Bisulfate (Clopidogrel) 75 MG TABLET 1 TAB PO DAILY BLOOD THINNER (Reported) Cyanocobalamin (Vitamin B-12) 1,000 MCG TABLET 1 TAB PO DAILY VITAMIN SUPPORT (Reported) Docusate Sodium 100 MG CAPSULE 1 CAP PO DAILY CONSTIPATION (Reported) Famotidine (Pepcid AC) 20 MG TABLET 1 TAB PO DAILY PRN GI (Reported) Folic Acid/Vit Bcomp,C (Dialyvite 800 Tablet) 0.8 MG TABLET 1 TAB PO DAILY VITAMIN SUPPORT (Reported) Lisinopril 2.5 MG TABLET 1 TAB PO DAILY HEART (Reported) Metoprolol Tartrate 25 MG TABLET 1 MG PO BID HEART/BP (Reported) Metoprolol Tartrate 25 MG TABLET 1 TAB PO Tuesday HEART/BP ( Reported) Metoprolol Tartrate (Lopressor) 50 MG TABLET 1 TAB PO BID HEART (Reported) Multivitamin (Daily Multiple Vitamin) 1 EACH TABLET 1 TAB PO DAILY VITAMIN SUPPORT (Reported) [place]-3 Acid Ethyl Esters (Lovaza) 1 GRAM CAPSULE 1 CAP PO BID CHOLESTEROL ( Reported) Oxycodone HCl/Acetaminophen (Percocet 5-325 MG Tablet) 5 MG-325 MG TABLET 1 TAB PO Q6-PRN PRN PAIN (Reported) Sennosides (Senokot) 8.6 MG TABLET 1-2 TAB PO QPM CONSTIPATION (Reported) Sevelamer Carbonate (Renvela) 800 MG TABLET 1 TAB PO WM KIDNEYS (Reported) Current Medications: Current Medications Sig/Bobo Start time Last Medication Dose Route Stop Time Status Admin Acetaminophen 650 MG Q4P PRN 12/26 2100 AC 12/26 PO 2326 Acetaminophen 0 .STK-MED ONE 12/26 1536 DC IV Acetaminophen 1,000 MG ONCE ONE 12/26 1515 DC 12/26 N/A 1 UNIT IV 12/26 1529 1546 Aspirin Buffered 81 MG DAILY 12/27 1000 AC 12/27 PO 0924 Atorvastatin Calcium 10 MG 17012/27 1700 AC PO Ceftazidime 1,000 MG Q24H 12/27 1800 AC IV Ceftazidime 0 .STK-MED ONE 12/26 1746 DC .ROUTE Ceftazidime 1,000 MG ONCE ONE 12/26 1730 DC 12/26 IV 12/26 1731 1758 Cinacalcet 30 MG 1700 12/27 1700 AC PO Cinacalcet 30 MG DAILY 12/27 1000 DC PO Clopidogrel Bisulfate 75 MG DAILY 12/27 1000 AC 12/27 PO 0924 Cyanocobalamin 1,000 MCG DAILY 12/27 1000 AC 12/27 PO 0924 Docusate Sodium 100 MG DAILY 12/27 1000 AC 12/27 PO 0924 Heparin Sodium 5,000 UNIT Q8 12/27 0600 CAN (Porcine) SC Lidocaine 0 .STK-MED ONE 12/26 1937 DC .ROUTE Magnesium Sulfate 1 GM ONCE ONE 12/27 0130 CAN Dextrose/Water 100 ML IV 12/27 0529 Magnesium Sulfate 1 GM Q2H 12/27 0130 DC 12/27 Dextrose/Water 100 ML IV 12/27 0529 0231 Multivitamins 1 TAB DAILY 12/27 1000 AC 12/27 PO 0924 Norepinephrine 8 MG Q24H 12/27 0115 AC 12/27 Sodium Chloride 250 ML IV 0116 Norepinephrine 8 MG .STK-MED ONE 12/27 0112 DC IV 12/27 0113 Potassium Chloride 40 MEQ .STK-MED ONE 12/26 2202 DC PO 12/26 2203 Potassium Chloride 40 MEQ ONCE ONE 12/26 1930 DC 12/26 PO 12/26 1931 2200 Sevelamer Carbonate 2,400 MG WM 12/27 1200 AC 12/27 PO 1230 Sevelamer Carbonate 800 MG WM 12/27 0800 DC 12/27 PO 0834 Sodium Chloride 1,000 ML BOLUS ONE 12/26 1715 DC 12/26 IV 12/26 1814 1715 Sodium Chloride 1,000 ML BOLUS ONE 12/26 1715 DC 12/26 IV 12/26 1814 1816 Vancomycin HCl 0 .STK-MED ONE 12/26 1746 DC .ROUTE Vancomycin HCl 1,000 MG ONCE ONE 12/26 1730 DC 12/26 Dextrose/Water 250 ML IV 12/26 1829 1816 Review of Systems Review of Systems Constitutional: Reports: chills, fever, malaise, weakness. Denies: diaphoresis. EENTM: Reports: no symptoms. Cardiovascular: Reports: edema, palpitations, peripheral edema. Denies: chest pain, orthopena. Respiratory: Reports: short of breath. Denies: cough, hemoptysis. GI: Denies: abdominal pain, constipation, vomiting. Genitourinary: Reports: no symptoms. Past History Travel History Traveled to [place] past 21 day No Medical History Blood Transfusion Hx: Yes Neurological: NONE EENT: diabetic retinopathy Cardiovascular: CAD, hypertension, hyperlipidemia, PVD, ENDOCARDITIS Respiratory: obstructive sleep apnea, USES CPAP Gastrointestinal: BARIATRIC SX-SLEEVE C-DIFF HERNIA REPAIR Hepatic: NONE Renal: ESRD on HD, nephrolithiasis, AVF L ARM Musculoskeletal: RBKA ABSCESS ON STUMP Psychiatric: NONE Endocrine: diabetes, TYPE II Blood Disorders: anemia Cancer(s): NONE CYCLE COUNTER/Reproductive: NONE Surgical History Surgical History: CABG, cholecystectomy, hernia repair-incisional, RIGHT BELOW THE KNEE AMPUTATION IN 2010 with revision 6 months postop status post left forearm AV fistula status post gastric sleeve status post angioplasty of the left popliteal artery, tibioperoneal trunk and posterior tibial artery Psychosocial History Where Do You Live? Home Who Do You Live With? spouse Services at Home: Nursing, Occupational Therapy, Physical Therapy Smoking Status: Never Smoked ETOH Use: occasional use Illicit Drug Use: denies illicit drug use Functional Ability ADLs Independent: dressing, eating, toileting, bathing. Ambulation: independent, cane, Prosthesis IADLs Independent: shopping, housework, finances, food prep, telephone, transportation , medication admin. ECHO Results (as available) Date of last Echo 10/10/17 Exam & Diagnostic Data Last 24 Hrs of Vital Signs/I&O Vital Signs Date Time Temp Pulse Resp B/P B/P Pulse O2 O2 Flow FiO2 Mean Ox Delivery Rate 12/27 0800 99 Room Air Room Air 12/27 0800 97.7 77 24 102/58 99 Room Air Room Air 12/27 0642 71 97 12/27 0400 97 CPAP Room Air 12/27 0400 100.3 80 26 100/52 97 CPAP Room Air 12/27 0339 84 96 12/27 0300 101.4 83 24 109/55 95 CPAP Room Air 12/27 0200 101.7 82 22 104/57 95 CPAP Room Air 12/27 0116 95 25 82/42 12/27 0100 101.5 94 24 82/42 93 CPAP Room Air 12/27 0046 83 96 12/27 0030 102.5 12/27 0000 102.5 104 24 90/50 96 CPAP Room Air 12/27 0000 95 CPAP Room Air 12/26 2326 102.0 12/26 2317 108 94 12/26 2300 102.0 104 18 90/50 96 CPAP Room Air 12/26 2215 106 22 90/55 96 Nasal 2.0L Cannula 12/26 2200 108 20 100/56 97 Nasal 2.0L Cannula 12/26 2144 110 22 99/56 97 Nasal 2.0L Cannula 12/260 124 22 81/53 96 Nasal 2.0L Cannula 12/26 2114 108 20 95/47 96 Nasal 2.0L Cannula 12/26 2109 96 Nasal 2.0L Cannula 12/26 2109 100.3 124 20 88/46 96 Nasal 2.0L Cannula 12/268 98.6 124 16 82/50 98 Nasal 2.0L Cannula 12/26 2012 126 82/48 12/26 1925 98 20 80/42 96 Nasal 2.0L Cannula 12/26 1844 99 20 82/48 96 Nasal 2.0L Cannula 12/26 1817 96 18 84/54 96 Nasal 2.0L Cannula 12/26 1800 92 20 82/50 97 Nasal 2.0L Cannula 12/26 1735 97.7 12/26 1734 88 20 80/48 94 Room Air 12/26 1725 97.7 92 18 78/52 96 Room Air 12/26 1710 101.3 105 18 64/46 97 Room Air 12/26 1546 103.0 12/26 1545 Room Air Room Air 12/26 1446 103.0 112 18 112/65 96 Nasal 2.0L Cannula Intake & Output 12/27 1600 12/27 0800 12/27 0000 Intake Total 662 3200 Output Total 0 0 Balance 662 3200 Intake, IV 262 3000 Intake, Oral 400 200 Number 0 0 Bowel Movements Output, Urine 0 0 Patient 97.2 kg Weight Weight Bed scale Measurement Method Physical Exam General Appearance: well developed/nourished, no apparent distress, alert, awake , comfortable Head: atraumatic, normal appearance Eyes: Bilateral: PERRL, EOMI, pale conjunctivae. Ears, Nose, Throat: normal pharynx Neck: supple Respiratory: normal breath sounds, no respiratory distress Cardiovascular: regular rate/rhythm Gastrointestinal: normal bowel sounds, soft, non-tender Extremities: R. AKA. WRAPPED IN BANDAGE which is unsoiled and clean Last 48 Hrs of Labs/Brendan: Laboratory Tests 12/27/17 1200: Troponin I Pending 12/27/17 0530: Troponin I 0.23 *H 12/27/17 0530: Anion Gap 14, Estimated GFR 14 L, Glucose 125 H, Calcium 8.7, Phosphorus 4.0, Magnesium 2.1, Total Bilirubin 0.5, AST 21, ALT 17 L, Albumin 3.0 L, Fibrinogen Activity 417 H, D-Dimer High Sensitivty 1182 H, CBC w Diff MAN DIFF ORDERED, RBC 2.99 L, MCV 93.3, MCH 30.8, MCHC 33.1, RDW 15.4 H, MPV 10.0, Gran % 87.0 H, Lymphocytes % 6.3 L, Monocytes % 6.2, Eosinophils % 0, Basophils % 0.5, Absolute Granulocytes 5.4, Segmented Neutrophils 79 H, Band Neutrophils 9 H, Absolute Lymphocytes 0.4 L, Lymphocytes 8 L, Monocytes 4, Absolute Monocytes 0.4, Absolute Eosinophils 0, Absolute Basophils 0, Platelet Estimate DECREASED, Hypochromic-Microcytic 1+, Poikilocytosis 1+, Ovalocytes 1+ 12/27/17 0140: CBC w Diff MAN DIFF ORDERED, RBC 2.88 L, MCV 92.4, MCH 30.6, MCHC 33.1, RDW 15.3 H, MPV 9.9, Gran % 85.8 H, Lymphocytes % 7.9 L, Monocytes % 6.1, Eosinophils % 0, Basophils % 0.2, Absolute Granulocytes 3.7, Segmented Neutrophils 76 H, Band Neutrophils 13 H, Absolute Lymphocytes 0.3 L, Lymphocytes 6 L, Monocytes 5, Absolute Monocytes 0.3, Absolute Eosinophils 0, Absolute Basophils 0, Platelet Estimate DECREASED, Hypochromic-Microcytic 2+, Basophilic Stippling 1+, Ovalocytes 1+ 12/26/170: Magnesium 1.4 L, Troponin I 0.15 *H, ESR Westergren 35 H 12/26/172021: Lactic Acid 1.0 12/26/17 1542: Anion Gap 16, Estimated GFR 18 L, BUN/Creatinine Ratio 6.0 L, Glucose 133 H, Hemoglobin A1c 4.9, Lactic Acid 1.4, Calcium 8.8, Total Bilirubin 0.6, AST 13 L , ALT 18 L, Alkaline Phosphatase 121, Troponin I 0.05, [id number] Pept 71663 H, Total Protein 6.9, Albumin 3.9, Globulin 3.0, Albumin/Globulin Ratio 1.3, TSH 0.801, Thyroxine (T4) 5.2, Prolactin 29.3 H, PT 11.9, INR 1.13, APTT 28, CBC w Diff NO MAN DIFF REQ, RBC 3.31 L, MCV 92.5, MCH 30.8, MCHC 33.3, RDW 15.2 H, MPV 9.6, Gran % 91.7 H, Lymphocytes % 3.7 L, Monocytes % 3.7, Eosinophils % 0.5, Basophils % 0.4, Absolute Granulocytes 3.7, Absolute Lymphocytes 0.1 L, Absolute Monocytes 0.1, Absolute Eosinophils 0, Absolute Basophils 0 12/26/17 1525: Virus Culture Pending Microbiology 12/26 1524 NASOPHARYN: Influenza Virus A & B Rapid Smear - COMP Assessment/Plan CRCU Impression/Plan: This is a 57-year-old gentleman w/ PMH of CAD recent PCI with drug-eluting stent in [facility] in September 2017, s/p quadriple CABG (2006), history of T2DM, ESRD on MWF dialysis, 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 He comes in for CC of malaise, lethargy and hypotension noted during routine dialysis appointment. In ED pt was found to be febrile, tachycardic, and hypotensive with inappropriate response to 3 L IVF. Given concern for septic shock due to unknown source pt was started on broad spectrum abx ad R. fem central line was placed and pressors started. He also transiently went into afib but not started on Heparin due to concern for bleed from femoral site. PLAN Respiratory: ??PNA: Pt c/o subjective SOB but has been on RA after admission. CXR does have findings "suspicious for left lower lobe pneumonia.Trace bilateral effusions, left base slightly greater than right." * On ceftaz/Vanco for septic shock so it will cover possible PNA source. Infectious disease: Septic shock secondary to unknown source: Differential includes healthcare associated pneumonia given CAT scan findings, osteoporosis/BKA stump infection, endocarditis. His imaging shows pleural effusion but unsure if this is due to volume overload or infection. Patient has history of C. difficile but is not complaining of diarrhea or abdominal pain at this time. This a.m. patient had 2 blood cultures positive for gram-positive cocci. He requires low-dose levo fed despite 3 L of resuscitation. This a.m. his white count is 6.2 but with 9 bands. Platelets low at 90. TTE does not comment on any mitral vegetation. * Hold his home hypertensive medication * continue broad-spectrum antibiotics including vancomycin and ceftaz * Appreciate infectious disease recommendations * Stump imaging * Continue to monitor blood cultures * Pending other cultures * Will redraw bcx tomorrow Cardiovascular: Atrial fibrillation: Pt had transient episode of a.fib x1 yesterday and had similar episode during previous hospitalization when he was septic. Currently NSR. * Monitor on tele Hypotension: Patient has right femoral triple-lumen catheter inserted on 2017. He is currently on 2.5 mics of levo fed double concentrated. We'll attempt to wean him off. * Hold Lopressor * Hold lisinopril Elevated troponin: Thought to be 2/2 demand. Not on any AC * Appreciate cardiology recs * Trend EKG/trops CAD: Chronic and stable * Continue Aspirin * Continue Statin * Continue Clopidogrel Heme/Onc: Anemia: Hemoglobin 9.2. Seems to be around his baseline. Chronic and stable. * We'll type and cross * Transfusion is necessary Metabolic: Multiple electrolyte abnormalities but pt is ESRD. Will monitor and replete as necessary. Due for dialysis on 12/28/2017 Alimentary: Dialysis diet Nephro: ESRD: * Dialysis planned for tomorrow given hypotension * We will continue sevelamer DVT prophylaxis Problem List: 1. Acute electrocardiogram changes 2. Sepsis 3. Renal failure Consult Acknowledgment - Thank you for your consult request. Saul Alvarenga MD 12/27/17 1020: Assessment/Plan CRCU Other Findings/Comments: Saul Evans M.D. have examined this patient, reviewed available EMR data, personally reviewed images, discussed with resident/PA/OB SCRUB TECH, discussed management plan with housestaff and nursing staff, discussed managment plan all of healthcare providers, discussed management plan with patient and/or family, agreed with resident/PA/OB SCRUB TECH. The past history and parts of the chart have been autopopulated. Impression 57 year old man * fever, unclear source, can be soft tissue infection, recent endocarditis tx * hypotension is relative and has a hx of low bp at baseline * ESRD on HD Plan -nephrology, cardiology appreciated -ID consultation -cont abx -bowen cx -titrate pressors to off then remove femoral line once stabilized -f/u ordered imaging, including ECHO, LE doppler DVT prophylaxis at all times TTS 40 min Consult Acknowledgment - Thank you for your consult request.
--- NOTE | 2017-12-27 08:26 | Cons- Nephrology ---
General Information and HPI Consulting Request Date of Consult: 12/27/17 Requested By: Karen MARTINEZ,Enma Merino History of Present Illness: 57 yo male with ESRD due to DM on MWF dialysis, rigth BKA amputation. 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 Echo showed itral valve vegetation. He was treated with Ancef though November 23, 2017. Stump appeared to be healing well but he presented to dialysis yesterday with tachycardia, fever and hypotension. He had a fever and required norepinephrine for bp support. He wears CPAP at night and has been maintained on this with relatively good oxygenatin. He did complete his entire dialysis treatment yesterday but was 2-3 kg over EDW because of limited UF due to hypotension FH: negaitve for kidney disease. Allergies/Medications Allergies: Coded Allergies: midodrine (HIVES 12/26/17) Home Med List: Aspirin (Ecotrin*) 81 MG TABLET.DR 1 TAB PO DAILY HEART/BLOOD (Reported) Atorvastatin Calcium 10 MG TABLET 1 TAB PO DAILY CHOLESTEROL (Reported) Cholecalciferol (Vitamin D3) (Vitamin D3) 2,000 UNIT TABLET 3 TAB PO DAILY VITAMIN SUPPORT (Reported) Cinacalcet HCl (Sensipar) 30 MG TABLET 1 TAB PO DAILY KIDNEYS (Reported) Clopidogrel Bisulfate (Clopidogrel) 75 MG TABLET 1 TAB PO DAILY BLOOD THINNER (Reported) Cyanocobalamin (Vitamin B-12) 1,000 MCG TABLET 1 TAB PO DAILY VITAMIN SUPPORT (Reported) Docusate Sodium 100 MG CAPSULE 1 CAP PO DAILY CONSTIPATION (Reported) Famotidine (Pepcid AC) 20 MG TABLET 1 TAB PO DAILY PRN GI (Reported) Folic Acid/Vit Bcomp,C (Dialyvite 800 Tablet) 0.8 MG TABLET 1 TAB PO DAILY VITAMIN SUPPORT (Reported) Lisinopril 2.5 MG TABLET 1 TAB PO DAILY HEART (Reported) Metoprolol Tartrate 25 MG TABLET 1 MG PO BID HEART/BP (Reported) Metoprolol Tartrate 25 MG TABLET 1 TAB PO Tuesday HEART/BP ( Reported) Metoprolol Tartrate (Lopressor) 50 MG TABLET 1 TAB PO BID HEART (Reported) Multivitamin (Daily Multiple Vitamin) 1 EACH TABLET 1 TAB PO DAILY VITAMIN SUPPORT (Reported) [place]-3 Acid Ethyl Esters (Lovaza) 1 GRAM CAPSULE 1 CAP PO BID CHOLESTEROL ( Reported) Oxycodone HCl/Acetaminophen (Percocet 5-325 MG Tablet) 5 MG-325 MG TABLET 1 TAB PO Q6-PRN PRN PAIN (Reported) Sennosides (Senokot) 8.6 MG TABLET 1-2 TAB PO QPM CONSTIPATION (Reported) Sevelamer Carbonate (Renvela) 800 MG TABLET 1 TAB PO WM KIDNEYS (Reported) Current Medications: Current Medications Sig/Bobo Start time Last Medication Dose Route Stop Time Status Admin Acetaminophen 650 MG Q4P PRN 12/26 2100 AC 12/26 PO 2326 Acetaminophen 0 .STK-MED ONE 12/26 1536 DC IV Acetaminophen 1,000 MG ONCE ONE 12/26 1515 DC 12/26 N/A 1 UNIT IV 12/26 1529 1546 Aspirin Buffered 81 MG DAILY 12/27 1000 AC PO Atorvastatin Calcium 10 MG 1700 12/27 1700 AC PO Ceftazidime 1,000 MG Q24H 12/27 1800 AC IV Ceftazidime 0 .STK-MED ONE 12/26 1746 DC .ROUTE Ceftazidime 1,000 MG ONCE ONE 12/26 1730 DC 12/26 IV 12/26 1731 1758 Cinacalcet 30 MG DAILY 12/27 1000 AC PO Clopidogrel Bisulfate 75 MG DAILY 12/27 1000 AC PO Cyanocobalamin 1,000 MCG DAILY 12/27 1000 AC PO Docusate Sodium 100 MG DAILY 12/27 1000 AC PO Heparin Sodium 5,000 UNIT Q8 12/27 0600 CAN (Porcine) SC Lidocaine 0 .STK-MED ONE 12/26 1937 DC .ROUTE Magnesium Sulfate 1 GM ONCE ONE 12/27 0130 CAN Dextrose/Water 100 ML IV 12/27 0529 Magnesium Sulfate 1 GM Q2H 12/27 0130 DC 12/27 Dextrose/Water 100 ML IV 12/27 0529 0231 Multivitamins 1 TAB DAILY 12/27 1000 AC PO Norepinephrine 8 MG Q24H 12/27 0115 AC 12/27 Sodium Chloride 250 ML IV 0116 Potassium Chloride 40 MEQ .STK-MED ONE 12/26 2202 DC PO 12/26 2203 Potassium Chloride 40 MEQ ONCE ONE 12/26 1930 DC 12/26 PO 12/26 1931 2200 Sevelamer Carbonate 800 MG WM 12/27 0800 AC PO Sodium Chloride 1,000 ML BOLUS ONE 12/26 1715 DC 12/26 IV 02/19 1814 1715 Sodium Chloride 1,000 ML BOLUS ONE 12/26 1715 DC 12/26 IV 12/26 181 181 Vancomycin HCl 0 .STK-MED ONE 12/26 1746 DC .ROUTE Vancomycin HCl 1,000 MG ONCE ONE 12/26 1730 DC 12/26 Dextrose/Water 250 ML IV 12/26 1829 181 Review of Systems Review of Systems: Neagative except as noted above. Past History Travel History Traveled to [place] past 21 day No Medical History Blood Transfusion Hx: Yes Neurological: NONE EENT: diabetic retinopathy Cardiovascular: CAD, hypertension, hyperlipidemia, PVD, ENDOCARDITIS Respiratory: obstructive sleep apnea, USES CPAP Gastrointestinal: BARIATRIC SX-SLEEVE C-DIFF HERNIA REPAIR Hepatic: NONE Renal: ESRD on HD, nephrolithiasis, AVF L ARM Musculoskeletal: RBKA ABSCESS ON STUMP Psychiatric: NONE Endocrine: diabetes, TYPE II Blood Disorders: anemia Cancer(s): NONE ATTENDANT ARCADE/Reproductive: NONE Surgical History Surgical History: CABG, cholecystectomy, hernia repair-incisional, RIGHT BELOW THE KNEE AMPUTATION IN 2009 with revision 6 months postop status post left forearm AV fistula status post gastric sleeve status post angioplasty of the left popliteal artery, tibioperoneal trunk and posterior tibial artery Psychosocial History Where Do You Live? Home Who Do You Live With? spouse Services at Home: Nursing, Occupational Therapy, Physical Therapy Smoking Status: Never Smoked ETOH Use: occasional use Illicit Drug Use: denies illicit drug use Functional Ability ADLs Independent: dressing, eating, toileting, bathing. Ambulation: independent, cane, Prosthesis IADLs Independent: shopping, housework, finances, food prep, telephone, transportation , medication admin. ECHO Results (as available) Date of last Echo 10/10/17 Exam & Diagnostic Data Vital Signs and I&O Vital Signs Date Time Temp Pulse Resp B/P B/P Pulse O2 O2 Flow FiO2 Mean Ox Delivery Rate 12/27 0642 71 97 12/27 0400 97 CPAP Room Air 12/27 0400 100.3 80 26 100/52 97 CPAP Room Air 12/27 0339 84 96 12/27 0300 101.4 83 24 109/55 95 CPAP Room Air 12/27 0200 101.7 82 22 104/57 95 CPAP Room Air 12/27 0116 95 25 82/42 12/27 0100 101.5 94 24 82/42 93 CPAP Room Air 12/27 0046 83 96 12/27 0030 102.5 12/27 0000 102.5 104 24 90/50 96 CPAP Room Air 12/27 0000 95 CPAP Room Air 12/26 2326 102.0 12/26 2317 108 94 12/26 2300 102.0 104 18 90/50 96 CPAP Room Air 12/26 2215 106 22 90/55 96 Nasal 2.0L Cannula 12/26 2200 108 20 100/56 97 Nasal 2.0L Cannula 12/265 110 22 99/56 97 Nasal 2.0L Cannula 12/260 124 22 81/53 96 Nasal 2.0L Cannula 12/26 2114 108 20 95/47 96 Nasal 2.0L Cannula 12/26 2109 96 Nasal 2.0L Cannula 12/26 2109 100.3 124 20 88/46 96 Nasal 2.0L Cannula 12/26 2058 98.6 124 16 82/50 98 Nasal 2.0L Cannula 12/26 2013 126 82/48 12/26 1925 98 20 80/42 96 Nasal 2.0L Cannula 12/26 1844 99 20 82/48 96 Nasal 2.0L Cannula 12/26 1817 96 18 84/54 96 Nasal 2.0L Cannula 12/26 1800 92 20 82/50 97 Nasal 2.0L Cannula 12/26 1735 97.7 12/26 1734 88 20 80/48 94 Room Air 12/26 1725 97.7 92 18 78/52 96 Room Air 12/26 1710 101.3 105 18 64/46 97 Room Air 12/26 1546 103.0 12/26 1545 Room Air Room Air 12/26 1446 103.0 112 18 112/65 96 Nasal 2.0L Cannula Intake & Output 12/27 1600 12/27 0400 12/26 1600 12/26 0400 12/25 1600 12/25 0400 Intake Total 662 3200 Output Total 0 0 Balance 662 3200 Intake, IV 262 3000 Intake, Oral 400 200 Number 0 0 Bowel Movements Output, Urine 0 0 Patient 214 lb 202 lb Weight Weight Bed scale Reported by Patient Measurement Method Physical Exam: NAD, on CPAP VS as above. Eyes: anicteric, PERRLA Neck: no mass or thryomegaly Nodes: negative cervical/inguinal Skin: no rash or induration Lungs: clear P &A CV: no rub or murmur Abd: nontender, bs positive no organomegaly Exts: right BKA, left lower arm AVF without signs of infection Neuro: awake, A&O, CN grossly intact, no asterixis. Results Pertinent Lab Results: Laboratory Tests 12/27 12/27 0530 0530 Chemistry Sodium (137 - 145 mmol/L) 142 Potassium (3.5 - 5.1 mmol/L) 4.4 Chloride (98 - 107 mmol/L) 106 Carbon Dioxide (22 - 30 mmol/L) 22 Anion Gap (5 - 16) 14 BUN (9 - 20 mg/dL) 29 H Creatinine (0.7 - 1.2 mg/dL) 4.3 H Estimated GFR (>60 ml/min) 14 L Glucose (65 - 99 mg/dL) 125 H Calcium (8.4 - 10.2 mg/dL) 8.7 Phosphorus (2.5 - 4.5 mg/dL) 4.0 Magnesium (1.6 - 2.3 mg/dL) 2.1 Total Bilirubin (0.2 - 1.3 mg/dL) 0.5 AST (17 - 59 U/L) 21 ALT (21 - 72 U/L) 17 L Troponin I (<0.11 ng/ml) 0.23 *H Albumin (3.5 - 5.0 g/dL) 3.0 L Coagulation Fibrinogen Activity (200 - 393 MG/DL) 417 H D-Dimer High Sensitivty (0 - 243 ng/ml) 1182 H Hematology CBC w Diff MAN DIFF ORDERED WBC (4.8 - 10.8 /CUMM) 6.2 RBC (4.70 - 6.10 /CUMM) 2.99 L Hgb (14.0 - 18.0 G/DL) 9.2 L Hct (42 - 52 %) 27.9 L MCV (80.0 - 94.0 FL) 93.3 MCH (27.0 - 31.0 PG) 30.8 MCHC (33.0 - 37.0 G/DL) 33.1 RDW (11.5 - 14.5 %) 15.4 H Plt Count (130 - 400 /CUMM) 90 L MPV (7.4 - 10.4 FL) 10.0 Gran % (42.2 - 75.2 %) 87.0 H Lymphocytes % (20.5 - 51.1 %) 6.3 L Monocytes % (1.7 - 9.3 %) 6.2 Eosinophils % (0 - 5 %) 0 Basophils % (0.0 - 2.0 %) 0.5 Absolute Granulocytes (1.4 - 6.5 /CUMM) 5.4 Segmented Neutrophils (42.2 - 75.2 %) 79 H Band Neutrophils (0.0 - 5.0 %) 9 H Absolute Lymphocytes (1.2 - 3.4 /CUMM) 0.4 L Lymphocytes (20.5 - 51.1 %) 8 L Monocytes (1.7 - 9.3 %) 4 Absolute Monocytes (0.10 - 0.60 /CUMM) 0.4 Absolute Eosinophils (0.0 - 0.7 /CUMM) 0 Absolute Basophils (0.0 - 0.2 /CUMM) 0 Platelet Estimate (ADEQUATE) DECREASED Hypochromic-Microcytic 1+ Poikilocytosis 1+ Ovalocytes 1+ 12/27 12/26 12/26 0140 0 2021 Chemistry Potassium (3.5 - 5.1 mmol/L) 4.6 Lactic Acid (0.7 - 2.1 mmol/L) 1.0 Magnesium (1.6 - 2.3 mg/dL) 1.4 L Troponin I (<0.11 ng/ml) 0.15 *H Hematology CBC w Diff MAN DIFF ORDERED WBC (4.8 - 10.8 /CUMM) 4.4 L RBC (4.70 - 6.10 /CUMM) 2.88 L Hgb (14.0 - 18.0 G/DL) 8.8 L Hct (42 - 52 %) 26.6 L MCV (80.0 - 94.0 FL) 92.4 MCH (27.0 - 31.0 PG) 30.6 MCHC (33.0 - 37.0 G/DL) 33.1 RDW (11.5 - 14.5 %) 15.3 H Plt Count (130 - 400 /CUMM) 68 L MPV (7.4 - 10.4 FL) 9.9 Gran % (42.2 - 75.2 %) 85.8 H Lymphocytes % (20.5 - 51.1 %) 7.9 L Monocytes % (1.7 - 9.3 %) 6.1 Eosinophils % (0 - 5 %) 0 Basophils % (0.0 - 2.0 %) 0.2 Absolute Granulocytes (1.4 - 6.5 /CUMM) 3.7 Segmented Neutrophils (42.2 - 75.2 %) 76 H Band Neutrophils (0.0 - 5.0 %) 13 H Absolute Lymphocytes (1.2 - 3.4 /CUMM) 0.3 L Lymphocytes (20.5 - 51.1 %) 6 L Monocytes (1.7 - 9.3 %) 5 Absolute Monocytes (0.10 - 0.60 /CUMM) 0.3 Absolute Eosinophils (0.0 - 0.7 /CUMM) 0 Absolute Basophils (0.0 - 0.2 /CUMM) 0 Platelet Estimate (ADEQUATE) DECREASED Hypochromic-Microcytic 2+ Basophilic Stippling 1+ Ovalocytes 1+ ESR Westergren (0 - 10 MM) 35 H 12/26 12/26 1542 1525 Chemistry Sodium (137 - 145 mmol/L) 143 Potassium (3.5 - 5.1 mmol/L) 3.4 L Chloride (98 - 107 mmol/L) 103 Carbon Dioxide (22 - 30 mmol/L) 24 Anion Gap (5 - 16) 16 BUN (9 - 20 mg/dL) 21 H Creatinine (0.7 - 1.2 mg/dL) 3.5 H Estimated GFR (>60 ml/min) 18 L BUN/Creatinine Ratio (7 - 25 %) 6.0 L Glucose (65 - 99 mg/dL) 133 H Hemoglobin A1c (4.2 - 5.8 %) Pending Lactic Acid (0.7 - 2.1 mmol/L) 1.4 Calcium (8.4 - 10.2 mg/dL) 8.8 Total Bilirubin (0.2 - 1.3 mg/dL) 0.6 AST (17 - 59 U/L) 13 L ALT (21 - 72 U/L) 18 L Alkaline Phosphatase (< 127 U/L) 121 Troponin I (<0.11 ng/ml) 0.05 [id number] Pept (<125 pg/mL) 03869 H Total Protein (6.3 - 8.2 g/dL) 6.9 Albumin (3.5 - 5.0 g/dL) 3.9 Globulin (1.9 - 4.2 gm/dL) 3.0 Albumin/Globulin Ratio (1.1 - 2.2 %) 1.3 TSH (0.270 - 4.200 uIU/mL) 0.801 Thyroxine (T4) (4.5 - 10.9 ug/dL) 5.2 Prolactin (3.7 - 17.9 ng/mL) 29.3 H Coagulation PT (9.4 - 12.5 SEC) 11.9 INR (0.90 - 1.17) 1.13 APTT (25 - 37 SEC) 28 Hematology CBC w Diff NO MAN DIFF REQ WBC (4.8 - 10.8 /CUMM) 4.0 L RBC (4.70 - 6.10 /CUMM) 3.31 L Hgb (14.0 - 18.0 G/DL) 10.2 L Hct (42 - 52 %) 30.6 L MCV (80.0 - 94.0 FL) 92.5 MCH (27.0 - 31.0 PG) 30.8 MCHC (33.0 - 37.0 G/DL) 33.3 RDW (11.5 - 14.5 %) 15.2 H Plt Count (130 - 400 /CUMM) 83 L MPV (7.4 - 10.4 FL) 9.6 Gran % (42.2 - 75.2 %) 91.7 H Lymphocytes % (20.5 - 51.1 %) 3.7 L Monocytes % (1.7 - 9.3 %) 3.7 Eosinophils % (0 - 5 %) 0.5 Basophils % (0.0 - 2.0 %) 0.4 Absolute Granulocytes (1.4 - 6.5 /CUMM) 3.7 Absolute Lymphocytes (1.2 - 3.4 /CUMM) 0.1 L Absolute Monocytes (0.10 - 0.60 /CUMM) 0.1 Absolute Eosinophils (0.0 - 0.7 /CUMM) 0 Absolute Basophils (0.0 - 0.2 /CUMM) 0 Serology Virus Culture Pending Assessment/Plan Assessment/Recommendations Assessment: Patient sepsis and I am quite concerned about recurrence of his MSSA bacteremia. 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 No other obvious source at this time as stump apparently appears clear. His electrolytes are acceptable, no over CHF on exam. He is sligly above EDW but on pressors to support BP. Of note, he usually gets midodrine 10 mg pre dialysis. Recommendations: Await blood cultures results but broad spectrum antibiotics for now and hemodynamic support. No indication for dialysis today as would not be able to remove fluid given hypotension/sepsis. Rufus plan on treatment tomorrow and if pressure better can try and get closer to EDW. Thank you for this consult and will follow patient with you.
--- NOTE | 2017-12-27 09:02 | Cons- Cardiology ---
General Information and HPI Consulting Request Date of Consult: 12/27/17 Requested By: Karen MARTINEZ,Enma Merino Reason for Consult: CAD hypotension Source of Information: patient, old records Exam Limitations: no limitations History of Present Illness: The patient is a 57-year-old male known to me with history of coronary disease status post coronary bypass surgery 2006, hypertension, recent complex PCI September 2017 with ARIEL to the left main into the circumflex artery, prior gastric sleeve surgery, obstructive sleep apnea, end-stage renal disease on dialysis, prior BKA, recent sepsis secondary to infected stump with mitral valve endocarditis who now presents with fever. Patient states that he has not been feeling well for the past few days. Yesterday he went to dialysis where he developed shaking chills along with fever to 102 and hypotension. The patient was brought to [facility] and placed on Levophed and treated for probable pneumonia. From the cardiac standpoint he denies chest pain but does describe mild shortness of breath. He was recently discharged a [facility] 3 weeks ago from [place] after being there for rehabilitation. Allergies/Medications Allergies: Coded Allergies: midodrine (HIVES 12/26/17) Home Med List: Aspirin (Ecotrin*) 81 MG TABLET.DR 1 TAB PO DAILY HEART/BLOOD (Reported) Atorvastatin Calcium 10 MG TABLET 1 TAB PO DAILY CHOLESTEROL (Reported) Cholecalciferol (Vitamin D3) (Vitamin D3) 2,000 UNIT TABLET 3 TAB PO DAILY VITAMIN SUPPORT (Reported) Cinacalcet HCl (Sensipar) 30 MG TABLET 1 TAB PO DAILY KIDNEYS (Reported) Clopidogrel Bisulfate (Clopidogrel) 75 MG TABLET 1 TAB PO DAILY BLOOD THINNER (Reported) Cyanocobalamin (Vitamin B-12) 1,000 MCG TABLET 1 TAB PO DAILY VITAMIN SUPPORT (Reported) Docusate Sodium 100 MG CAPSULE 1 CAP PO DAILY CONSTIPATION (Reported) Famotidine (Pepcid AC) 20 MG TABLET 1 TAB PO DAILY PRN GI (Reported) Folic Acid/Vit Bcomp,C (Dialyvite 800 Tablet) 0.8 MG TABLET 1 TAB PO DAILY VITAMIN SUPPORT (Reported) Lisinopril 2.5 MG TABLET 1 TAB PO DAILY HEART (Reported) Metoprolol Tartrate 25 MG TABLET 1 MG PO BID HEART/BP (Reported) Metoprolol Tartrate 25 MG TABLET 1 TAB PO Tuesday HEART/BP ( Reported) Metoprolol Tartrate (Lopressor) 50 MG TABLET 1 TAB PO BID HEART (Reported) Multivitamin (Daily Multiple Vitamin) 1 EACH TABLET 1 TAB PO DAILY VITAMIN SUPPORT (Reported) Ambrose-3 Acid Ethyl Esters (Lovaza) 1 GRAM CAPSULE 1 CAP PO BID CHOLESTEROL ( Reported) Oxycodone HCl/Acetaminophen (Percocet 5-325 MG Tablet) 5 MG-325 MG TABLET 1 TAB PO Q6-PRN PRN PAIN (Reported) Sennosides (Senokot) 8.6 MG TABLET 1-2 TAB PO QPM CONSTIPATION (Reported) Sevelamer Carbonate (Renvela) 800 MG TABLET 1 TAB PO WM KIDNEYS (Reported) Current Medications: Current Medications Sig/Bobo Start time Last Medication Dose Route Stop Time Status Admin Acetaminophen 650 MG Q4P PRN 12/26 2100 AC 12/26 PO 2326 Acetaminophen 0 .STK-MED ONE 12/26 1536 DC IV Acetaminophen 1,000 MG ONCE ONE 12/26 1515 DC 12/26 N/A 1 UNIT IV 12/26 1529 1546 Aspirin Buffered 81 MG DAILY 12/27 1000 AC PO Atorvastatin Calcium 10 MG 1700 12/27 1700 AC PO Ceftazidime 1,000 MG Q24H 12/27 1800 AC IV Ceftazidime 0 .STK-MED ONE 12/26 1746 DC .ROUTE Ceftazidime 1,000 MG ONCE ONE 12/26 1730 DC 12/26 IV 12/26 1731 1758 Cinacalcet 30 MG DAILY 12/27 1000 AC PO Clopidogrel Bisulfate 75 MG DAILY 12/27 1000 AC PO Cyanocobalamin 1,000 MCG DAILY 12/27 1000 AC PO Docusate Sodium 100 MG DAILY 12/27 1000 AC PO Heparin Sodium 5,000 UNIT Q8 12/27 0600 CAN (Porcine) SC Lidocaine 0 .STK-MED ONE 12/26 1937 DC .ROUTE Magnesium Sulfate 1 GM ONCE ONE 12/27 0130 CAN Dextrose/Water 100 ML IV 12/27 0529 Magnesium Sulfate 1 GM Q2H 12/27 0130 DC 12/27 Dextrose/Water 100 ML IV 12/27 0529 0231 Multivitamins 1 TAB DAILY 12/27 1000 AC PO Norepinephrine 8 MG Q24H 12/27 0115 AC 12/27 Sodium Chloride 250 ML IV 0116 Potassium Chloride 40 MEQ .STK-MED ONE 12/262 DC PO 02/19 2203 Potassium Chloride 40 MEQ ONCE ONE 12/26 1930 DC 12/26 PO 12/26 1931 2200 Sevelamer Carbonate 800 MG WM 12/27 0800 AC 12/27 PO 0834 Sodium Chloride 1,000 ML BOLUS ONE 12/26 1715 DC 12/26 IV 12/26 181 1715 Sodium Chloride 1,000 ML BOLUS ONE 12/26 1715 DC 12/26 IV 12/26 1814 1816 Vancomycin HCl 0 .STK-MED ONE 12/26 1746 DC .ROUTE Vancomycin HCl 1,000 MG ONCE ONE 12/26 1730 DC 12/26 Dextrose/Water 250 ML IV 12/26 1829 1816 Review of Systems Review of Systems: Eyes no blurred or double vision Ears no deafness or ringing Nose and throat no recurrent sinusitis Lungs per history of present illness Heart per history of present illness Abdomen no nausea vomiting Musculoskeletal occasional muscle and joint pains Psych no anxiety or depression Neuro without recurrent headache or seizures Endocrine no heat or cold intolerance Past History Travel History Traveled to [place] past 21 day No Medical History Blood Transfusion Hx: Yes Neurological: NONE EENT: diabetic retinopathy Cardiovascular: CAD, hypertension, hyperlipidemia, PVD, ENDOCARDITIS Respiratory: obstructive sleep apnea, USES CPAP Gastrointestinal: BARIATRIC SX-SLEEVE C-DIFF HERNIA REPAIR Hepatic: NONE Renal: ESRD on HD, nephrolithiasis, AVF L ARM Musculoskeletal: RBKA ABSCESS ON STUMP Psychiatric: NONE Endocrine: diabetes, TYPE II Blood Disorders: anemia Cancer(s): NONE 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 Home Who Do You Live With? spouse Services at Home: Nursing, Occupational Therapy, Physical Therapy Smoking Status: Never Smoked ETOH Use: occasional use Illicit Drug Use: denies illicit drug use Functional Ability ADLs Independent: dressing, eating, toileting, bathing. Ambulation: independent, cane, Prosthesis IADLs Independent: shopping, housework, finances, food prep, telephone, transportation , medication admin. ECHO Results (as available) Date of last Echo 10/10/17 Exam & Diagnostic Data Vital Signs and I&O Vital Signs Date Time Temp Pulse Resp B/P B/P Pulse O2 O2 Flow FiO2 Mean Ox Delivery Rate 12/27 0642 71 97 12/27 0400 97 CPAP Room Air 12/27 0400 100.3 80 26 100/52 97 CPAP Room Air 12/27 0339 84 96 12/27 0300 101.4 83 24 109/55 95 CPAP Room Air 12/27 0200 101.7 82 22 104/57 95 CPAP Room Air 12/27 0116 95 25 82/42 12/27 0100 101.5 94 24 82/42 93 CPAP Room Air 12/27 0046 83 96 12/27 0030 102.5 12/27 0000 102.5 104 24 90/50 96 CPAP Room Air 12/27 0000 95 CPAP Room Air 12/26 2326 102.0 12/26 2317 108 94 12/26 2300 102.0 104 18 90/50 96 CPAP Room Air 12/26 2215 106 22 90/55 96 Nasal 2.0L Cannula 12/26 2200 108 20 100/56 97 Nasal 2.0L Cannula 12/26 2145 110 22 99/56 97 Nasal 2.0L Cannula 12/26 2130 124 22 81/53 96 Nasal 2.0L Cannula 12/265 108 20 95/47 96 Nasal 2.0L Cannula 12/260 96 Nasal 2.0L Cannula 12/260 100.3 124 20 88/46 96 Nasal 2.0L Cannula 12/26 2058 98.6 124 16 82/50 98 Nasal 2.0L Cannula 12/26 2013 126 82/48 12/26 1925 98 20 80/42 96 Nasal 2.0L Cannula 12/26 1844 99 20 82/48 96 Nasal 2.0L Cannula 12/26 1817 96 18 84/54 96 Nasal 2.0L Cannula 12/26 1800 92 20 82/50 97 Nasal 2.0L Cannula 12/26 1735 97.7 02 1734 88 20 80/48 94 Room Air 12/26 1725 97.7 92 18 78/52 96 Room Air 12/26 1710 101.3 105 18 64/46 97 Room Air 12/26 1546 103.0 12/26 1545 Room Air Room Air 12/26 1446 103.0 112 18 112/65 96 Nasal 2.0L Cannula Intake & Output 12/27 1600 12/27 0800 12/27 0000 12/26 1600 12/26 0800 12/26 0000 Intake Total 662 3200 Output Total 0 0 Balance 662 3200 Intake, IV 262 3000 Intake, Oral 400 200 Number 0 0 Bowel Movements Output, Urine 0 0 Patient 214 lb 202 lb Weight Weight Bed scale Reported by Patient Measurement Method Physical Exam: Patient is a well-developed well-nourished male appearing in no acute distress sitting in bed eating breakfast HEENT is unremarkable Neck is supple there is no JVD Lungs decreased air entry bilaterally Heart regular rhythm S1 and S2 are normal no gallops or rubs 1/6 systolic ejection murmur at left sternal border Abdomen bowel sounds positive Extremities without edema Labs/Brendan Results: Laboratory Tests 12/27 12/27 0530 0530 Chemistry Sodium (137 - 145 mmol/L) 142 Potassium (3.5 - 5.1 mmol/L) 4.4 Chloride (98 - 107 mmol/L) 106 Carbon Dioxide (22 - 30 mmol/L) 22 Anion Gap (5 - 16) 14 BUN (9 - 20 mg/dL) 29 H Creatinine (0.7 - 1.2 mg/dL) 4.3 H Estimated GFR (>60 ml/min) 14 L Glucose (65 - 99 mg/dL) 125 H Calcium (8.4 - 10.2 mg/dL) 8.7 Phosphorus (2.5 - 4.5 mg/dL) 4.0 Magnesium (1.6 - 2.3 mg/dL) 2.1 Total Bilirubin (0.2 - 1.3 mg/dL) 0.5 AST (17 - 59 U/L) 21 ALT (21 - 72 U/L) 17 L Troponin I (<0.11 ng/ml) 0.23 *H Albumin (3.5 - 5.0 g/dL) 3.0 L Coagulation Fibrinogen Activity (200 - 393 MG/DL) 417 H D-Dimer High Sensitivty (0 - 243 ng/ml) 1182 H Hematology CBC w Diff MAN DIFF ORDERED WBC (4.8 - 10.8 /CUMM) 6.2 RBC (4.70 - 6.10 /CUMM) 2.99 L Hgb (14.0 - 18.0 G/DL) 9.2 L Hct (42 - 52 %) 27.9 L MCV (80.0 - 94.0 FL) 93.3 MCH (27.0 - 31.0 PG) 30.8 MCHC (33.0 - 37.0 G/DL) 33.1 RDW (11.5 - 14.5 %) 15.4 H Plt Count (130 - 400 /CUMM) 90 L MPV (7.4 - 10.4 FL) 10.0 Gran % (42.2 - 75.2 %) 87.0 H Lymphocytes % (20.5 - 51.1 %) 6.3 L Monocytes % (1.7 - 9.3 %) 6.2 Eosinophils % (0 - 5 %) 0 Basophils % (0.0 - 2.0 %) 0.5 Absolute Granulocytes (1.4 - 6.5 /CUMM) 5.4 Segmented Neutrophils (42.2 - 75.2 %) 79 H Band Neutrophils (0.0 - 5.0 %) 9 H Absolute Lymphocytes (1.2 - 3.4 /CUMM) 0.4 L Lymphocytes (20.5 - 51.1 %) 8 L Monocytes (1.7 - 9.3 %) 4 Absolute Monocytes (0.10 - 0.60 /CUMM) 0.4 Absolute Eosinophils (0.0 - 0.7 /CUMM) 0 Absolute Basophils (0.0 - 0.2 /CUMM) 0 Platelet Estimate (ADEQUATE) DECREASED Hypochromic-Microcytic 1+ Poikilocytosis 1+ Ovalocytes 1+ 12/270 2319 2021 Chemistry Potassium (3.5 - 5.1 mmol/L) 4.6 Lactic Acid (0.7 - 2.1 mmol/L) 1.0 Magnesium (1.6 - 2.3 mg/dL) 1.4 L Troponin I (<0.11 ng/ml) 0.15 *H Hematology CBC w Diff MAN DIFF ORDERED WBC (4.8 - 10.8 /CUMM) 4.4 L RBC (4.70 - 6.10 /CUMM) 2.88 L Hgb (14.0 - 18.0 G/DL) 8.8 L Hct (42 - 52 %) 26.6 L MCV (80.0 - 94.0 FL) 92.4 MCH (27.0 - 31.0 PG) 30.6 MCHC (33.0 - 37.0 G/DL) 33.1 RDW (11.5 - 14.5 %) 15.3 H Plt Count (130 - 400 /CUMM) 68 L MPV (7.4 - 10.4 FL) 9.9 Gran % (42.2 - 75.2 %) 85.8 H Lymphocytes % (20.5 - 51.1 %) 7.9 L Monocytes % (1.7 - 9.3 %) 6.1 Eosinophils % (0 - 5 %) 0 Basophils % (0.0 - 2.0 %) 0.2 Absolute Granulocytes (1.4 - 6.5 /CUMM) 3.7 Segmented Neutrophils (42.2 - 75.2 %) 76 H Band Neutrophils (0.0 - 5.0 %) 13 H Absolute Lymphocytes (1.2 - 3.4 /CUMM) 0.3 L Lymphocytes (20.5 - 51.1 %) 6 L Monocytes (1.7 - 9.3 %) 5 Absolute Monocytes (0.10 - 0.60 /CUMM) 0.3 Absolute Eosinophils (0.0 - 0.7 /CUMM) 0 Absolute Basophils (0.0 - 0.2 /CUMM) 0 Platelet Estimate (ADEQUATE) DECREASED Hypochromic-Microcytic 2+ Basophilic Stippling 1+ Ovalocytes 1+ ESR Westergren (0 - 10 MM) 35 H 12/26 12/26 1542 1525 Chemistry Sodium (137 - 145 mmol/L) 143 Potassium (3.5 - 5.1 mmol/L) 3.4 L Chloride (98 - 107 mmol/L) 103 Carbon Dioxide (22 - 30 mmol/L) 24 Anion Gap (5 - 16) 16 BUN (9 - 20 mg/dL) 21 H Creatinine (0.7 - 1.2 mg/dL) 3.5 H Estimated GFR (>60 ml/min) 18 L BUN/Creatinine Ratio (7 - 25 %) 6.0 L Glucose (65 - 99 mg/dL) 133 H Hemoglobin A1c (4.2 - 5.8 %) Pending Lactic Acid (0.7 - 2.1 mmol/L) 1.4 Calcium (8.4 - 10.2 mg/dL) 8.8 Total Bilirubin (0.2 - 1.3 mg/dL) 0.6 AST (17 - 59 U/L) 13 L ALT (21 - 72 U/L) 18 L Alkaline Phosphatase (< 127 U/L) 121 Troponin I (<0.11 ng/ml) 0.05 Iax-J-Nutdthniewh Pept (<125 pg/mL) 49325 H Total Protein (6.3 - 8.2 g/dL) 6.9 Albumin (3.5 - 5.0 g/dL) 3.9 Globulin (1.9 - 4.2 gm/dL) 3.0 Albumin/Globulin Ratio (1.1 - 2.2 %) 1.3 TSH (0.270 - 4.200 uIU/mL) 0.801 Thyroxine (T4) (4.5 - 10.9 ug/dL) 5.2 Prolactin (3.7 - 17.9 ng/mL) 29.3 H Coagulation PT (9.4 - 12.5 SEC) 11.9 INR (0.90 - 1.17) 1.13 APTT (25 - 37 SEC) 28 Hematology CBC w Diff NO MAN DIFF REQ WBC (4.8 - 10.8 /CUMM) 4.0 L RBC (4.70 - 6.10 /CUMM) 3.31 L Hgb (14.0 - 18.0 G/DL) 10.2 L Hct (42 - 52 %) 30.6 L MCV (80.0 - 94.0 FL) 92.5 MCH (27.0 - 31.0 PG) 30.8 MCHC (33.0 - 37.0 G/DL) 33.3 RDW (11.5 - 14.5 %) 15.2 H Plt Count (130 - 400 /CUMM) 83 L MPV (7.4 - 10.4 FL) 9.6 Gran % (42.2 - 75.2 %) 91.7 H Lymphocytes % (20.5 - 51.1 %) 3.7 L Monocytes % (1.7 - 9.3 %) 3.7 Eosinophils % (0 - 5 %) 0.5 Basophils % (0.0 - 2.0 %) 0.4 Absolute Granulocytes (1.4 - 6.5 /CUMM) 3.7 Absolute Lymphocytes (1.2 - 3.4 /CUMM) 0.1 L Absolute Monocytes (0.10 - 0.60 /CUMM) 0.1 Absolute Eosinophils (0.0 - 0.7 /CUMM) 0 Absolute Basophils (0.0 - 0.2 /CUMM) 0 Serology Virus Culture Pending Diagnostic Data EKG Results Sinus rhythm and complete right bundle branch block. Episode of Atrial tachycardia nonspecific ST-T wave changes CXR Results IMPRESSION: Findings are suspicious for left lower lobe pneumonia. Trace bilateral effusions, left base slightly greater than right. Assessment/Plan Assessment/Plan 1. Coronary disease by history status post coronary bypass surgery 2006 with complex PCI to the left main into the circumflex September 2017 with normal LV function 2. Hypertension 3. Peripheral arterial disease status post amputation 4. End-stage renal disease on dialysis 5. History of infected stump with mitral valve endocarditis 6. Diabetes 7. Fever and chills with hypotension most likely secondary to pneumonia with sepsis. 8. Elevated troponins secondary to demand ischemia 9. Brief atrial fibrillation noted on telemetry most likely secondary to pneumonia Recommendations 1. Continue current antibiotics 2. Wean Levophed as blood pressure tolerates 3. Echocardiogram is pending 4. Hold lisinopril and metoprolol due to hypotension 5. Continue to monitor on telemetry. I would not recommend full anticoagulation at present. Thank you for allowing [facility] to participate in the care of your patient. Consult Acknowledgment - Thank you for your consult request.
--- NOTE | 2017-12-27 12:37 | ECHOCARDIOGRAM REPORT ---
YOANA QUEZADA Age: 57 : 1960 Gender: M Exam Date: 12/27/2017 09:51 Exam Location: [facility] Ht (in): 76 Wt (lb): 214 BSA: 2.29 BP: 100 / 52 Ordering Physician: Sunitha Ward MD Referring Physician: Sunitha Ward MD Technologist: Hugo Russell [facility] Room Number: 101-1 Indications: Shortness of breath Rhythm: Other Technical Quality: fair FINDINGS Left Ventricle Normal global left ventricular size, wall thickness, systolic function with no obvious regional wall motion abnormalities. Normal left ventricular ejection fraction estimated at 60-65%. Right Ventricle Normal right ventricular size and function. Right Atrium Normal right atrial size. Left Atrium Mild left atrial dilatation. Mitral Valve Moderate mitral annular calcification. Llne-wt-scqmimbc mitral regurgitation. Aortic Valve Aortic valve is normal in structure and function. Tricuspid Valve Tricuspid valve is normal in structure and function. Mild-to- moderate tricuspid regurgitation. Moderate tricuspid regurgitation. Right ventricular systolic pressure estimated to be elevated at 60 mmHg. Pulmonic Valve Pulmonic valve not well visualized, grossly normal. Pericardium No pericardial effusion. Great Vessels Normal size aortic root. CONCLUSIONS Normal left and right ventricular systolic function. Mild to moderate Mitral and tricuspid regurgitation. Moderate to severe Pulmonary hypertension. Erasto Trinidad M.D. (Electronically Signed) Final Date: 27 December 2017 12:36 MEASUREMENTS (Male / Female) Normal Values 2D ECHO LV Diastolic Diameter PLAX 5.9 cm 4.2 - 5.9 / 3.9 - 5.3 cm LV Systolic Diameter PLAX 4.0 cm 2.1 - 4.0 cm LV Fractional Shortening PLAX 32.2 % 25 - 46 % LV Ejection Fraction 2D Teich 59.6 % IVS Diastolic Thickness 0.8 cm LVPW Diastolic Thickness 0.8 cm LV Relative Wall Thickness 0.3 RV Internal Dim ED PLAX 3.8 cm 1.9 - 3.8 cm LVOT Diameter 2.2 cm Aortic Root Diameter 3.2 cm LA Systolic Diameter LX 4.6 cm 3.0 - 4.0 / 2.7 - 3.8 cm LA Volume 91.0 cm 18 - 58 / 22 - 52 cm Ascending Aorta Diameter 2.8 cm DOPPLER AV Peak Velocity 112.0 cm/s AV Peak Gradient 5.0 mmHg AV Mean Velocity 79.6 cm/s AV Mean Gradient 3.0 mmHg AV Velocity Time Integral 21.3 cm LVOT Peak Velocity 86.5 cm/s LVOT Peak Gradient 3.0 mmHg LVOT Mean Velocity 55.4 cm/s LVOT Mean Gradient 2.0 mmHg LVOT Velocity Time Integral 15.7 cm LVOT Stroke Volume 59.7 cm AV Area Cont Eq vti 2.8 cm AV Area Cont Eq pk 2.9 cm MV Peak Velocity 178.0 cm/s MV Peak Gradient 12.7 mmHg MV Mean Velocity 86.5 cm/s MV Mean Gradient 4.0 mmHg Mitral E Point Velocity 152.0 cm/s Mitral A Point Velocity 49.4 cm/s Mitral E to A Ratio 3.1 MV PHT Velocity 180.0 cm/s MV Deceleration Bolivar 760.0 cm/s MV Pressure Half Time 71.1 ms MV Area PHT 3.1 cm MV Deceleration Time 222.0 ms MR Peak Velocity 377.5 cm/s MR Peak Gradient 57.0 mmHg TR Peak Velocity 350.0 cm/s TR Peak Gradient 49.0 mmHg Right Atrial Pressure 10.0 mmHg Pulmonary Artery Systolic Pressu 59.0 mmHg Right Ventricular Systolic Press 59.0 mmHg PV Peak Velocity 105.0 cm/s PV Peak Gradient 4.4 mmHg PV Mean Velocity 70.4 cm/s PV Mean Gradient 2.0 mmHg PV Velocity Time Integral 15.8 cm
--- NOTE | 2017-12-27 15:22 | Cons- Infect Disease ---
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 nearly 8 years prior to admission, status post several hospitalizations for infections of the right BKA stump secondary to MSSA, most recently 2 1/2 months prior to admission, at which time he underwent I&D of a fluid collection, with an MRI revealing a new posterior cortical defect within the proximal tibia, with OR cultures (including bone) and blood cultures positive for MSSA and with a transthoracic echo revealing a possible mitral valve vegetation, discharged on Cefazolin, to be dosed after each dialysis, to complete a 6 week course, with plans for an AKA at a later date, status post a left ureteroscopy and laser lithotripsy 2 months prior to admission for an obstructing left ureteral stone after presenting to the emergency room with left flank pain, admitted on December 26 after he was sent to the emergency room from dialysis, where he was found to have shaking chills, with several days of fevers, fatigue and altered mental status. On admission he was febrile to 103, with a blood pressure of 64/ 46. Laboratory data revealed a white blood cell count of 4000, platelets 83,000 , BUN/creatinine 21 and 3.5, with normal liver enzymes, proBNP 53,100, coags normal. Chest x-ray revealed a left lower lobe density. He was given IV fluids but, because of persistent hypertension, he required Levophed, with a triple- lumen catheter placed in the right femoral vein. He was given 1 dose each of Vancomycin and Ceftazidime and admitted to the ICU. He remained febrile overnight, though his temperatures appear to be decreased today. His blood pressure remains low, requiring Levophed. He feels improved, however, with no further chills, and he offers no complaints at this time. Allergies/Medications Allergies: Coded Allergies: midodrine (HIVES 12/26/17) Home Med List: Aspirin (Ecotrin*) 81 MG TABLET.DR 1 TAB PO DAILY HEART/BLOOD (Reported) Atorvastatin Calcium 10 MG TABLET 1 TAB PO DAILY CHOLESTEROL (Reported) Cholecalciferol (Vitamin D3) (Vitamin D3) 2,000 UNIT TABLET 3 TAB PO DAILY VITAMIN SUPPORT (Reported) Cinacalcet HCl (Sensipar) 30 MG TABLET 1 TAB PO DAILY KIDNEYS (Reported) Clopidogrel Bisulfate (Clopidogrel) 75 MG TABLET 1 TAB PO DAILY BLOOD THINNER (Reported) Cyanocobalamin (Vitamin B-12) 1,000 MCG TABLET 1 TAB PO DAILY VITAMIN SUPPORT (Reported) Docusate Sodium 100 MG CAPSULE 1 CAP PO DAILY CONSTIPATION (Reported) Famotidine (Pepcid AC) 20 MG TABLET 1 TAB PO DAILY PRN GI (Reported) Folic Acid/Vit Bcomp,C (Dialyvite 800 Tablet) 0.8 MG TABLET 1 TAB PO DAILY VITAMIN SUPPORT (Reported) Lisinopril 2.5 MG TABLET 1 TAB PO DAILY HEART (Reported) Metoprolol Tartrate 25 MG TABLET 1 MG PO BID HEART/BP (Reported) Metoprolol Tartrate 25 MG TABLET 1 TAB PO Tuesday HEART/BP ( Reported) Metoprolol Tartrate (Lopressor) 50 MG TABLET 1 TAB PO BID HEART (Reported) Multivitamin (Daily Multiple Vitamin) 1 EACH TABLET 1 TAB PO DAILY VITAMIN SUPPORT (Reported) [place]-3 Acid Ethyl Esters (Lovaza) 1 GRAM CAPSULE 1 CAP PO BID CHOLESTEROL ( Reported) Oxycodone HCl/Acetaminophen (Percocet 5-325 MG Tablet) 5 MG-325 MG TABLET 1 TAB PO Q6-PRN PRN PAIN (Reported) Sennosides (Senokot) 8.6 MG TABLET 1-2 TAB PO QPM CONSTIPATION (Reported) Sevelamer Carbonate (Renvela) 800 MG TABLET 1 TAB PO WM KIDNEYS (Reported) Past History Travel History Traveled to [place] past 21 day No Medical History Blood Transfusion Hx: Yes Neurological: NONE EENT: diabetic retinopathy Cardiovascular: CAD, hypertension, hyperlipidemia, PVD, ENDOCARDITIS Respiratory: obstructive sleep apnea, USES CPAP Gastrointestinal: BARIATRIC SX-SLEEVE C-DIFF HERNIA REPAIR Hepatic: NONE Renal: ESRD on HD, nephrolithiasis, AVF L ARM Musculoskeletal: RBKA ABSCESS ON STUMP Psychiatric: NONE Endocrine: diabetes, TYPE II Blood Disorders: anemia Cancer(s): NONE [employer]/Reproductive: NONE History of MRSA: No History of VRE: No History of CDIFF: No Isolation History: Standard Influenza Vaccine: 08/07/17 Surgical History Surgical History: CABG, cholecystectomy, hernia repair-incisional, RIGHT BELOW THE KNEE AMPUTATION IN 2010 with revision 6 months postop status post left forearm AV fistula status post gastric sleeve status post angioplasty of the left popliteal artery, tibioperoneal trunk and posterior tibial artery Psychosocial History Where Do You Live? Home Who Do You Live With? spouse Services at Home: Nursing, Occupational Therapy, Physical Therapy Smoking Status: Never Smoked ETOH Use: occasional use Illicit Drug Use: denies illicit drug use Functional Ability ADLs Independent: dressing, eating, toileting, bathing. Ambulation: independent, cane, Prosthesis IADLs Independent: shopping, housework, finances, food prep, telephone, transportation , medication admin. ECHO Results (as available) Date of last Echo 10/10/17 Review of Systems Review of Systems All Other Systems: Reviewed and Negative Exam & Diagnostic Data Last 24 Hrs of Vital Signs/I&O Vital Signs Date Time Temp Pulse Resp B/P B/P Pulse O2 O2 Flow FiO2 Mean Ox Delivery Rate 12/27 1200 96.6 74 24 86/58 96 Room Air Room Air 12/27 1200 96 Room Air Room Air 12/27 0800 99 Room Air Room Air 12/27 0800 97.7 77 24 102/58 99 Room Air Room Air 12/27 0642 71 97 12/27 0400 97 CPAP Room Air 12/27 0400 100.3 80 26 100/52 97 CPAP Room Air 12/27 0339 84 96 12/27 0300 101.4 83 24 109/55 95 CPAP Room Air 12/27 0200 101.7 82 22 104/57 95 CPAP Room Air 12/27 0116 95 25 82/42 12/27 0100 101.5 94 24 82/42 93 CPAP Room Air 12/27 0046 83 96 12/27 0030 102.5 12/27 0000 102.5 104 24 90/50 96 CPAP Room Air 12/27 0000 95 CPAP Room Air 12/26 2326 102.0 12/26 2317 108 94 12/26 2300 102.0 104 18 90/50 96 CPAP Room Air 12/26 2215 106 22 90/55 96 Nasal 2.0L Cannula 12/26 2200 108 20 100/56 97 Nasal 2.0L Cannula 12/26 2144 110 22 99/56 97 Nasal 2.0L Cannula 12/26 2129 124 22 81/53 96 Nasal 2.0L Cannula 12/26 2114 108 20 95/47 96 Nasal 2.0L Cannula 12/26 2109 96 Nasal 2.0L Cannula 12/26 2109 100.3 124 20 88/46 96 Nasal 2.0L Cannula 12/26 2057 98.6 124 16 82/50 98 Nasal 2.0L Cannula 12/26 2012 126 82/48 12/26 1925 98 20 80/42 96 Nasal 2.0L Cannula 12/26 1844 99 20 82/48 96 Nasal 2.0L Cannula 12/26 1817 96 18 84/54 96 Nasal 2.0L Cannula 12/26 1800 92 20 82/50 97 Nasal 2.0L Cannula 12/26 1735 97.7 12/26 1734 88 20 80/48 94 Room Air 12/26 1725 97.7 92 18 78/52 96 Room Air 12/26 1710 101.3 105 18 64/46 97 Room Air 12/26 1546 103.0 12/26 1545 Room Air Room Air Intake & Output 12/27 1600 12/27 0800 12/27 0000 Intake Total 973 260 6219 Output Total 0 0 Balance 741 109 6760 Intake, IV 42 262 3000 Intake, Oral 700 400 200 Number 0 0 Bowel Movements Output, Urine 0 0 Patient 214 lb Weight Weight Bed scale Measurement Method Physical Exam Other Physical Findings: TMax 103. He is awake and alert in no acute distress. Skin reveals no rash. HEENT is negative. Neck is supple with no adenopathy. Lungs are clear. Heart regular rhythm without murmur. Abdomen is soft, nontender with positive bowel sounds. Back no CVA tenderness. Extremities right BKA stump well-healed, with no erythema, fluctuance or tenderness; minimal erythema over the anterior aspect of the right knee, with normal range of motion; left forearm fistula with a positive bruit and thrill, with no inflammation; left foot cool with 1+ pulses. Neuro without focality. Last 24 Hours of Lab Results: Laboratory Tests 12/27 12/27 12/27 1200 0530 0530 Chemistry Sodium (137 - 145 mmol/L) 142 Potassium (3.5 - 5.1 mmol/L) 4.4 Chloride (98 - 107 mmol/L) 106 Carbon Dioxide (22 - 30 mmol/L) 22 Anion Gap (5 - 16) 14 BUN (9 - 20 mg/dL) 29 H Creatinine (0.7 - 1.2 mg/dL) 4.3 H Estimated GFR (>60 ml/min) 14 L Glucose (65 - 99 mg/dL) 125 H Calcium (8.4 - 10.2 mg/dL) 8.7 Phosphorus (2.5 - 4.5 mg/dL) 4.0 Magnesium (1.6 - 2.3 mg/dL) 2.1 Total Bilirubin (0.2 - 1.3 mg/dL) 0.5 AST (17 - 59 U/L) 21 ALT (21 - 72 U/L) 17 L Troponin I (<0.11 ng/ml) 0.15 *H 0.23 *H Albumin (3.5 - 5.0 g/dL) 3.0 L Coagulation Fibrinogen Activity (200 - 393 MG/DL) 417 H D-Dimer High Sensitivty (0 - 243 ng/ml) 1182 H Hematology CBC w Diff MAN DIFF ORDERED WBC (4.8 - 10.8 /CUMM) 6.2 RBC (4.70 - 6.10 /CUMM) 2.99 L Hgb (14.0 - 18.0 G/DL) 9.2 L Hct (42 - 52 %) 27.9 L MCV (80.0 - 94.0 FL) 93.3 MCH (27.0 - 31.0 PG) 30.8 MCHC (33.0 - 37.0 G/DL) 33.1 RDW (11.5 - 14.5 %) 15.4 H Plt Count (130 - 400 /CUMM) 90 L MPV (7.4 - 10.4 FL) 10.0 Gran % (42.2 - 75.2 %) 87.0 H Lymphocytes % (20.5 - 51.1 %) 6.3 L Monocytes % (1.7 - 9.3 %) 6.2 Eosinophils % (0 - 5 %) 0 Basophils % (0.0 - 2.0 %) 0.5 Absolute Granulocytes (1.4 - 6.5 /CUMM) 5.4 Segmented Neutrophils (42.2 - 75.2 %) 79 H Band Neutrophils (0.0 - 5.0 %) 9 H Absolute Lymphocytes (1.2 - 3.4 /CUMM) 0.4 L Lymphocytes (20.5 - 51.1 %) 8 L Monocytes (1.7 - 9.3 %) 4 Absolute Monocytes (0.10 - 0.60 /CUMM) 0.4 Absolute Eosinophils (0.0 - 0.7 /CUMM) 0 Absolute Basophils (0.0 - 0.2 /CUMM) 0 Platelet Estimate (ADEQUATE) DECREASED Hypochromic-Microcytic 1+ Poikilocytosis 1+ Ovalocytes 1+ 12/27 Chemistry Potassium (3.5 - 5.1 mmol/L) 4.6 Lactic Acid (0.7 - 2.1 mmol/L) 1.0 Magnesium (1.6 - 2.3 mg/dL) 1.4 L Troponin I (<0.11 ng/ml) 0.15 *H Hematology CBC w Diff MAN DIFF ORDERED WBC (4.8 - 10.8 /CUMM) 4.4 L RBC (4.70 - 6.10 /CUMM) 2.88 L Hgb (14.0 - 18.0 G/DL) 8.8 L Hct (42 - 52 %) 26.6 L MCV (80.0 - 94.0 FL) 92.4 MCH (27.0 - 31.0 PG) 30.6 MCHC (33.0 - 37.0 G/DL) 33.1 RDW (11.5 - 14.5 %) 15.3 H Plt Count (130 - 400 /CUMM) 68 L MPV (7.4 - 10.4 FL) 9.9 Gran % (42.2 - 75.2 %) 85.8 H Lymphocytes % (20.5 - 51.1 %) 7.9 L Monocytes % (1.7 - 9.3 %) 6.1 Eosinophils % (0 - 5 %) 0 Basophils % (0.0 - 2.0 %) 0.2 Absolute Granulocytes (1.4 - 6.5 /CUMM) 3.7 Segmented Neutrophils (42.2 - 75.2 %) 76 H Band Neutrophils (0.0 - 5.0 %) 13 H Absolute Lymphocytes (1.2 - 3.4 /CUMM) 0.3 L Lymphocytes (20.5 - 51.1 %) 6 L Monocytes (1.7 - 9.3 %) 5 Absolute Monocytes (0.10 - 0.60 /CUMM) 0.3 Absolute Eosinophils (0.0 - 0.7 /CUMM) 0 Absolute Basophils (0.0 - 0.2 /CUMM) 0 Platelet Estimate (ADEQUATE) DECREASED Hypochromic-Microcytic 2+ Basophilic Stippling 1+ Ovalocytes 1+ ESR Westergren (0 - 10 MM) 35 H 12/26 12/26 12/26 1542 1525 1509 Chemistry Sodium (137 - 145 mmol/L) 143 Potassium (3.5 - 5.1 mmol/L) 3.4 L Chloride (98 - 107 mmol/L) 103 Carbon Dioxide (22 - 30 mmol/L) 24 Anion Gap (5 - 16) 16 BUN (9 - 20 mg/dL) 21 H Creatinine (0.7 - 1.2 mg/dL) 3.5 H Estimated GFR (>60 ml/min) 18 L BUN/Creatinine Ratio (7 - 25 %) 6.0 L Glucose (65 - 99 mg/dL) 133 H Hemoglobin A1c (4.2 - 5.8 %) 4.9 Lactic Acid (0.7 - 2.1 mmol/L) 1.4 Calcium (8.4 - 10.2 mg/dL) 8.8 Total Bilirubin (0.2 - 1.3 mg/dL) 0.6 AST (17 - 59 U/L) 13 L ALT (21 - 72 U/L) 18 L Alkaline Phosphatase (< 127 U/L) 121 Troponin I (<0.11 ng/ml) 0.05 [id number] Pept (<125 pg/mL) 12470 H Total Protein (6.3 - 8.2 g/dL) 6.9 Albumin (3.5 - 5.0 g/dL) 3.9 Globulin (1.9 - 4.2 gm/dL) 3.0 Albumin/Globulin Ratio (1.1 - 2.2 %) 1.3 TSH (0.270 - 4.200 uIU/mL) 0.801 Thyroxine (T4) (4.5 - 10.9 ug/dL) 5.2 Prolactin (3.7 - 17.9 ng/mL) 29.3 H Coagulation PT (9.4 - 12.5 SEC) 11.9 INR (0.90 - 1.17) 1.13 APTT (25 - 37 SEC) 28 Hematology CBC w Diff NO MAN DIFF REQ WBC (4.8 - 10.8 /CUMM) 4.0 L RBC (4.70 - 6.10 /CUMM) 3.31 L Hgb (14.0 - 18.0 G/DL) 10.2 L Hct (42 - 52 %) 30.6 L MCV (80.0 - 94.0 FL) 92.5 MCH (27.0 - 31.0 PG) 30.8 MCHC (33.0 - 37.0 G/DL) 33.3 RDW (11.5 - 14.5 %) 15.2 H Plt Count (130 - 400 /CUMM) 83 L MPV (7.4 - 10.4 FL) 9.6 Gran % (42.2 - 75.2 %) 91.7 H Lymphocytes % (20.5 - 51.1 %) 3.7 L Monocytes % (1.7 - 9.3 %) 3.7 Eosinophils % (0 - 5 %) 0.5 Basophils % (0.0 - 2.0 %) 0.4 Absolute Granulocytes (1.4 - 6.5 /CUMM) 3.7 Absolute Lymphocytes (1.2 - 3.4 /CUMM) 0.1 L Absolute Monocytes (0.10 - 0.60 /CUMM) 0.1 Absolute Eosinophils (0.0 - 0.7 /CUMM) 0 Absolute Basophils (0.0 - 0.2 /CUMM) 0 Serology Virus Culture Pending Urines Urine Color Cancelled Urine Clarity Cancelled Urine pH Cancelled Ur Specific [place] Cancelled Urine Protein Cancelled Urine Ketones Cancelled Urine Nitrite Cancelled Urine Bilirubin Cancelled Urine Urobilinogen Cancelled Ur Leukocyte Esterase Cancelled Ur Microscopic Cancelled Urine Hemoglobin Cancelled Urine Glucose Cancelled Last 24 Hours of Brendan Results: Blood cultures 2 December 26 positive for gram-positive cocci in clusters Rapid flu swab December 26 negative Diagnostic Data Recent Imaging Findings: Chest x-ray December 26 reveals a subtle airspace opacity in the retrocardiac region Echocardiogram December 27 reveals mild to moderate mitral regurgitation with no mention of any vegetation Assessment/Plan Assessment/Plan Impression: This is a 57-year-old man with a history of diabetes, coronary artery disease, status post angioplasty and stent over 3 months prior to admission, end-stage renal disease, maintained on hemodialysis Mondays, Wednesdays and Fridays via a left forearm fistula, status post a right BKA 8 years prior to admission, complicated by several infections of the stump secondary to MSSA, most recently 2-1/2 months prior to admission, with evidence of osteomyelitis at that time, status post I&D of the soft tissue with plans for AKA at a later date, and with a transthoracic echo revealing a possible mitral valve vegetation, treated with a 6 week course of Cefazolin, admitted on December 26 with lethargy and chills, found to be febrile with a normal white blood cell count and with blood cultures His presentation is consistent with sepsis secondary to Staph aureus, likely representing a relapse or a residual infection related to his previous infection. He has no obvious source but must suspect that this either represents a relapse of his endocarditis, in which case he will require valve replacement, though no vegetation was identified on his recent echocardiogram, a residual infection related to the right BKA stump, though there is no evidence of inflammation around the stump, or another focus that may have been seeded from the recent bacteremia. Suggestion: 1. Cardiology follow-up regarding his recent Echocardiogram in view of his previous Echo findings 2. Will need to consider YULIA 3. Follow-up ultrasound of the right BKA stump, apparently done earlier today 4. Consider MRI of the right leg if ultrasound unrevealing 5. Repeat blood cultures 2 in the AM 6. Discontinue Ceftazidime 7. Obtain a Vancomycin random level with dialysis in the a.m. and redose with Vancomycin based on this level per dialysis protocol Consult Acknowledgment - Thank you for your consult request.
--- NOTE | 2017-12-27 15:39 | Cons- Vascular Surgery ---
General Information and HPI Consulting Request Date of Consult: 12/27/17 Requested By: Enma Jones MD Reason for Consult: History of sepsis and right below-knee amputation site wounds Source of Information: patient, old records Exam Limitations: no limitations History of Present Illness: This is a 57-year-old male with multiple medical problems including end-stage renal disease on hemodialysis, diabetes and below-knee amputation for severe diabetic foot wound many years ago. He recently presented with a fluid collection on the right below-knee amputation site several months ago. This was accompanied by swelling and discomfort. He denies any issues in the amputation site at this time. However he has had fevers and chills with hypotension consistent with sepsis. This is congruent with previous presentation. He denies any pain in the area and has had some shortness of breath. Allergies/Medications Allergies: Coded Allergies: midodrine (HIVES 12/26/17) Home Med List: Aspirin (Ecotrin*) 81 MG TABLET.DR 1 TAB PO DAILY HEART/BLOOD (Reported) Atorvastatin Calcium 10 MG TABLET 1 TAB PO DAILY CHOLESTEROL (Reported) Cholecalciferol (Vitamin D3) (Vitamin D3) 2,000 UNIT TABLET 3 TAB PO DAILY VITAMIN SUPPORT (Reported) Cinacalcet HCl (Sensipar) 30 MG TABLET 1 TAB PO DAILY KIDNEYS (Reported) Clopidogrel Bisulfate (Clopidogrel) 75 MG TABLET 1 TAB PO DAILY BLOOD THINNER (Reported) Cyanocobalamin (Vitamin B-12) 1,000 MCG TABLET 1 TAB PO DAILY VITAMIN SUPPORT (Reported) Docusate Sodium 100 MG CAPSULE 1 CAP PO DAILY CONSTIPATION (Reported) Famotidine (Pepcid AC) 20 MG TABLET 1 TAB PO DAILY PRN GI (Reported) Folic Acid/Vit Bcomp,C (Dialyvite 800 Tablet) 0.8 MG TABLET 1 TAB PO DAILY VITAMIN SUPPORT (Reported) Lisinopril 2.5 MG TABLET 1 TAB PO DAILY HEART (Reported) Metoprolol Tartrate 25 MG TABLET 1 MG PO BID HEART/BP (Reported) Metoprolol Tartrate 25 MG TABLET 1 TAB PO Tuesday HEART/BP ( Reported) Metoprolol Tartrate (Lopressor) 50 MG TABLET 1 TAB PO BID HEART (Reported) Multivitamin (Daily Multiple Vitamin) 1 EACH TABLET 1 TAB PO DAILY VITAMIN SUPPORT (Reported) [place]-3 Acid Ethyl Esters (Lovaza) 1 GRAM CAPSULE 1 CAP PO BID CHOLESTEROL ( Reported) Oxycodone HCl/Acetaminophen (Percocet 5-325 MG Tablet) 5 MG-325 MG TABLET 1 TAB PO Q6-PRN PRN PAIN (Reported) Sennosides (Senokot) 8.6 MG TABLET 1-2 TAB PO QPM CONSTIPATION (Reported) Sevelamer Carbonate (Renvela) 800 MG TABLET 1 TAB PO WM KIDNEYS (Reported) Current Medications: Current Medications Sig/Bobo Start time Last Medication Dose Route Stop Time Status Admin Acetaminophen 650 MG Q4P PRN 12/26 2100 AC 12/26 PO 2326 Acetaminophen 0 .STK-MED ONE 12/26 1536 DC IV Aspirin Buffered 81 MG DAILY 12/27 1000 AC 12/27 PO 0924 Atorvastatin Calcium 10 MG 1700 12/27 1700 AC PO Ceftazidime 1,000 MG Q24H 12/27 1800 AC IV Ceftazidime 0 .STK-MED ONE 12/26 1746 DC .ROUTE Ceftazidime 1,000 MG ONCE ONE 12/26 1730 DC 12/26 IV 12/26 1731 1758 Cinacalcet 30 MG 1700 12/27 1700 AC PO Cinacalcet 30 MG DAILY 12/27 1000 DC PO Clopidogrel Bisulfate 75 MG DAILY 12/27 1000 AC 12/27 PO 0924 Cyanocobalamin 1,000 MCG DAILY 12/27 1000 AC 12/27 PO 0924 Docusate Sodium 100 MG DAILY 12/27 1000 AC 12/27 PO 0924 Heparin Sodium 5,000 UNIT Q8 12/27 0600 CAN (Porcine) SC Lidocaine 0 .STK-MED ONE 12/26 1937 DC .ROUTE Magnesium Sulfate 1 GM ONCE ONE 12/27 0130 CAN Dextrose/Water 100 ML IV 12/27 0529 Magnesium Sulfate 1 GM Q2H 12/27 0130 DC 12/27 Dextrose/Water 100 ML IV 12/27 0529 0231 Multivitamins 1 TAB DAILY 12/27 1000 AC 12/27 PO 0924 Norepinephrine 8 MG Q24H 12/27 0115 AC 12/27 Sodium Chloride 250 ML IV 0116 Norepinephrine 8 MG .STK-MED ONE 12/27 0112 DC IV 12/27 011 Potassium Chloride 40 MEQ .STK-MED ONE 12/26 2201 DC PO 12/26 2202 Potassium Chloride 40 MEQ ONCE ONE 12/26 1930 DC 12/26 PO 02/19 1931 2200 Sevelamer Carbonate 2,400 MG WM 12/27 1200 AC 12/27 PO 1230 Sevelamer Carbonate 800 MG WM 12/27 0800 DC 12/27 PO 0834 Sodium Chloride 1,000 ML BOLUS ONE 12/26 1715 DC 12/26 IV 12/26 1814 1715 Sodium Chloride 1,000 ML BOLUS ONE 12/26 1715 DC 12/26 IV 12/26 1814 1816 Vancomycin HCl 0 .STK-MED ONE 12/26 1746 DC .ROUTE Vancomycin HCl 1,000 MG ONCE ONE 12/26 1730 DC 12/26 Dextrose/Water 250 ML IV 12/26 1829 1816 Past History Medical History Blood Transfusion Hx: Yes Neurological: NONE EENT: diabetic retinopathy Cardiovascular: CAD, hypertension, hyperlipidemia, PVD, ENDOCARDITIS Respiratory: obstructive sleep apnea, USES CPAP Gastrointestinal: BARIATRIC SX-SLEEVE C-DIFF HERNIA REPAIR Hepatic: NONE Renal: ESRD on HD, nephrolithiasis, AVF L ARM Musculoskeletal: RBKA ABSCESS ON STUMP Psychiatric: NONE Endocrine: diabetes, TYPE II Blood Disorders: anemia Cancer(s): NONE 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 Home Who Do You Live With? spouse Services at Home: Nursing, Occupational Therapy, Physical Therapy Smoking Status: Never Smoked ETOH Use: occasional use Illicit Drug Use: denies illicit drug use Functional Ability ADLs Independent: dressing, eating, toileting, bathing. Ambulation: independent, cane, Prosthesis IADLs Independent: shopping, housework, finances, food prep, telephone, transportation , medication admin. Review of Systems Review of Systems: Patient with some mild shortness of breath and history of fever Review of Systems Constitutional: Reports: chills, fever, weakness. Skin: Reports: no symptoms. Exam & Diagnostic Data Vital Signs and I&O Vital Signs Date Time Temp Pulse Resp B/P B/P Pulse O2 O2 Flow FiO2 Mean Ox Delivery Rate 12/27 1200 96.6 74 24 86/58 96 Room Air Room Air 12/27 1200 96 Room Air Room Air 12/27 0800 99 Room Air Room Air 12/27 0800 97.7 77 24 102/58 99 Room Air Room Air 12/27 0642 71 97 12/27 0400 97 CPAP Room Air 12/27 0400 100.3 80 26 100/52 97 CPAP Room Air 12/27 0339 84 96 12/27 0300 101.4 83 24 109/55 95 CPAP Room Air 12/27 0200 101.7 82 22 104/57 95 CPAP Room Air 12/27 0116 95 25 82/42 12/27 0100 101.5 94 24 82/42 93 CPAP Room Air 12/27 0046 83 96 12/27 0030 102.5 12/27 0000 102.5 104 24 90/50 96 CPAP Room Air 12/27 0000 95 CPAP Room Air 12/26 2326 102.0 12/26 2317 108 94 12/26 2300 102.0 104 18 90/50 96 CPAP Room Air 12/26 2215 106 22 90/55 96 Nasal 2.0L Cannula 12/26 2200 108 20 100/56 97 Nasal 2.0L Cannula 12/26 2145 110 22 99/56 97 Nasal 2.0L Cannula 12/26 2130 124 22 81/53 96 Nasal 2.0L Cannula 12/26 2114 108 20 95/47 96 Nasal 2.0L Cannula 12/260 96 Nasal 2.0L Cannula 12/260 100.3 124 20 88/46 96 Nasal 2.0L Cannula 12/26 2058 98.6 124 16 82/50 98 Nasal 2.0L Cannula 12/26 2013 126 82/48 12/26 1925 98 20 80/42 96 Nasal 2.0L Cannula 12/26 1844 99 20 82/48 96 Nasal 2.0L Cannula 12/26 1817 96 18 84/54 96 Nasal 2.0L Cannula 12/26 1800 92 20 82/50 97 Nasal 2.0L Cannula 12/26 1735 97.7 12/26 1734 88 20 80/48 94 Room Air 12/26 1725 97.7 92 18 78/52 96 Room Air 12/26 1710 101.3 105 18 64/46 97 Room Air 12/26 1546 103.0 12/26 1545 Room Air Room Air Intake & Output 12/27 1600 12/27 0800 12/27 0000 12/26 1600 12/26 0800 12/26 0000 Intake Total 226 429 5268 Output Total 0 0 Balance 866 629 5595 Intake, IV 42 262 3000 Intake, Oral 700 400 200 Number 0 0 Bowel Movements Output, Urine 0 0 Patient 214 lb 202 lb Weight Weight Bed scale Reported by Patient Measurement Method Physical Exam: His right below-knee amputation site is decompressed, this no evidence of fluid collection or erythema or edema. Previously when a fluid collection existed this did cause edema and discomfort in the area. Physical Exam General Appearance: well developed/nourished Last 24 Hours of Labs: Laboratory Tests 12/27 12/27 12/27 1200 0530 0530 Chemistry Sodium (137 - 145 mmol/L) 142 Potassium (3.5 - 5.1 mmol/L) 4.4 Chloride (98 - 107 mmol/L) 106 Carbon Dioxide (22 - 30 mmol/L) 22 Anion Gap (5 - 16) 14 BUN (9 - 20 mg/dL) 29 H Creatinine (0.7 - 1.2 mg/dL) 4.3 H Estimated GFR (>60 ml/min) 14 L Glucose (65 - 99 mg/dL) 125 H Calcium (8.4 - 10.2 mg/dL) 8.7 Phosphorus (2.5 - 4.5 mg/dL) 4.0 Magnesium (1.6 - 2.3 mg/dL) 2.1 Total Bilirubin (0.2 - 1.3 mg/dL) 0.5 AST (17 - 59 U/L) 21 ALT (21 - 72 U/L) 17 L Troponin I (<0.11 ng/ml) 0.15 *H 0.23 *H Albumin (3.5 - 5.0 g/dL) 3.0 L Coagulation Fibrinogen Activity (200 - 393 MG/DL) 417 H D-Dimer High Sensitivty (0 - 243 ng/ml) 1182 H Hematology CBC w Diff MAN DIFF ORDERED WBC (4.8 - 10.8 /CUMM) 6.2 RBC (4.70 - 6.10 /CUMM) 2.99 L Hgb (14.0 - 18.0 G/DL) 9.2 L Hct (42 - 52 %) 27.9 L MCV (80.0 - 94.0 FL) 93.3 MCH (27.0 - 31.0 PG) 30.8 MCHC (33.0 - 37.0 G/DL) 33.1 RDW (11.5 - 14.5 %) 15.4 H Plt Count (130 - 400 /CUMM) 90 L MPV (7.4 - 10.4 FL) 10.0 Gran % (42.2 - 75.2 %) 87.0 H Lymphocytes % (20.5 - 51.1 %) 6.3 L Monocytes % (1.7 - 9.3 %) 6.2 Eosinophils % (0 - 5 %) 0 Basophils % (0.0 - 2.0 %) 0.5 Absolute Granulocytes (1.4 - 6.5 /CUMM) 5.4 Segmented Neutrophils (42.2 - 75.2 %) 79 H Band Neutrophils (0.0 - 5.0 %) 9 H Absolute Lymphocytes (1.2 - 3.4 /CUMM) 0.4 L Lymphocytes (20.5 - 51.1 %) 8 L Monocytes (1.7 - 9.3 %) 4 Absolute Monocytes (0.10 - 0.60 /CUMM) 0.4 Absolute Eosinophils (0.0 - 0.7 /CUMM) 0 Absolute Basophils (0.0 - 0.2 /CUMM) 0 Platelet Estimate (ADEQUATE) DECREASED Hypochromic-Microcytic 1+ Poikilocytosis 1+ Ovalocytes 1+ 12/27 12/26 12/26 0140 2319 2021 Chemistry Potassium (3.5 - 5.1 mmol/L) 4.6 Lactic Acid (0.7 - 2.1 mmol/L) 1.0 Magnesium (1.6 - 2.3 mg/dL) 1.4 L Troponin I (<0.11 ng/ml) 0.15 *H Hematology CBC w Diff MAN DIFF ORDERED WBC (4.8 - 10.8 /CUMM) 4.4 L RBC (4.70 - 6.10 /CUMM) 2.88 L Hgb (14.0 - 18.0 G/DL) 8.8 L Hct (42 - 52 %) 26.6 L MCV (80.0 - 94.0 FL) 92.4 MCH (27.0 - 31.0 PG) 30.6 MCHC (33.0 - 37.0 G/DL) 33.1 RDW (11.5 - 14.5 %) 15.3 H Plt Count (130 - 400 /CUMM) 68 L MPV (7.4 - 10.4 FL) 9.9 Gran % (42.2 - 75.2 %) 85.8 H Lymphocytes % (20.5 - 51.1 %) 7.9 L Monocytes % (1.7 - 9.3 %) 6.1 Eosinophils % (0 - 5 %) 0 Basophils % (0.0 - 2.0 %) 0.2 Absolute Granulocytes (1.4 - 6.5 /CUMM) 3.7 Segmented Neutrophils (42.2 - 75.2 %) 76 H Band Neutrophils (0.0 - 5.0 %) 13 H Absolute Lymphocytes (1.2 - 3.4 /CUMM) 0.3 L Lymphocytes (20.5 - 51.1 %) 6 L Monocytes (1.7 - 9.3 %) 5 Absolute Monocytes (0.10 - 0.60 /CUMM) 0.3 Absolute Eosinophils (0.0 - 0.7 /CUMM) 0 Absolute Basophils (0.0 - 0.2 /CUMM) 0 Platelet Estimate (ADEQUATE) DECREASED Hypochromic-Microcytic 2+ Basophilic Stippling 1+ Ovalocytes 1+ ESR Westergren (0 - 10 MM) 35 H 12/26 1542 Chemistry Sodium (137 - 145 mmol/L) 143 Potassium (3.5 - 5.1 mmol/L) 3.4 L Chloride (98 - 107 mmol/L) 103 Carbon Dioxide (22 - 30 mmol/L) 24 Anion Gap (5 - 16) 16 BUN (9 - 20 mg/dL) 21 H Creatinine (0.7 - 1.2 mg/dL) 3.5 H Estimated GFR (>60 ml/min) 18 L BUN/Creatinine Ratio (7 - 25 %) 6.0 L Glucose (65 - 99 mg/dL) 133 H Hemoglobin A1c (4.2 - 5.8 %) 4.9 Lactic Acid (0.7 - 2.1 mmol/L) 1.4 Calcium (8.4 - 10.2 mg/dL) 8.8 Total Bilirubin (0.2 - 1.3 mg/dL) 0.6 AST (17 - 59 U/L) 13 L ALT (21 - 72 U/L) 18 L Alkaline Phosphatase (< 127 U/L) 121 Troponin I (<0.11 ng/ml) 0.05 [id number] Pept (<125 pg/mL) 96778 H Total Protein (6.3 - 8.2 g/dL) 6.9 Albumin (3.5 - 5.0 g/dL) 3.9 Globulin (1.9 - 4.2 gm/dL) 3.0 Albumin/Globulin Ratio (1.1 - 2.2 %) 1.3 TSH (0.270 - 4.200 uIU/mL) 0.801 Thyroxine (T4) (4.5 - 10.9 ug/dL) 5.2 Prolactin (3.7 - 17.9 ng/mL) 29.3 H Coagulation PT (9.4 - 12.5 SEC) 11.9 INR (0.90 - 1.17) 1.13 APTT (25 - 37 SEC) 28 Hematology CBC w Diff NO MAN DIFF REQ WBC (4.8 - 10.8 /CUMM) 4.0 L RBC (4.70 - 6.10 /CUMM) 3.31 L Hgb (14.0 - 18.0 G/DL) 10.2 L Hct (42 - 52 %) 30.6 L MCV (80.0 - 94.0 FL) 92.5 MCH (27.0 - 31.0 PG) 30.8 MCHC (33.0 - 37.0 G/DL) 33.3 RDW (11.5 - 14.5 %) 15.2 H Plt Count (130 - 400 /CUMM) 83 L MPV (7.4 - 10.4 FL) 9.6 Gran % (42.2 - 75.2 %) 91.7 H Lymphocytes % (20.5 - 51.1 %) 3.7 L Monocytes % (1.7 - 9.3 %) 3.7 Eosinophils % (0 - 5 %) 0.5 Basophils % (0.0 - 2.0 %) 0.4 Absolute Granulocytes (1.4 - 6.5 /CUMM) 3.7 Absolute Lymphocytes (1.2 - 3.4 /CUMM) 0.1 L Absolute Monocytes (0.10 - 0.60 /CUMM) 0.1 Absolute Eosinophils (0.0 - 0.7 /CUMM) 0 Absolute Basophils (0.0 - 0.2 /CUMM) 0 Assessment/Plan Assessment/Plan 57-year-old male with multiple medical problems and recent admission for sepsis. Possible sources include endocarditis versus pneumonia versus persistent osteomyelitis of the right below-knee amputation site. This was previously treated with antibiotics. 1.) Would continue close surveillance and antibiotics as per primary team/ infectious disease 2.) Recommend cardiology consultation with possible YULIA 3.) May require right stump ultrasound although patient is recently fitted for prosthetic and a fluid collection in the area could be related to prosthetic. Whenever if negative this should rule out any major source from the leg. 4.) Continue elevation and compression for now 5.) Will follow along expectantlyif leg is the source patient may require right above-knee amputation- IF all other sources are ruled out. 6.) This was discussed with the patient at length Consult Acknowledgment - Thank you for your consult request.
--- NOTE | 2017-12-27 18:09 | ULTRASOUND REPORT ---
EXAMINATION: US SUPERFICIAL IMAGING, EXTREMITY CLINICAL INFORMATION: 57-year-old ICU patient status post right [id number] amputation. Looking for source of infection. Evaluate for stump abscess. COMPARISON: Right extremity MRI of 10/10/2017. TECHNIQUE: Sonographic imaging was performed of the patient's right amputation stump portably in the ICU. FINDINGS: A small 1.8 x 0.3 x 1.5 cm irregular fluid collection is identified in the anterior aspect of the amputation stump adjacent to the residual tibia. The fluid contains some low-level internal echoes but no identifiable gas. IMPRESSION: Small, nonspecific fluid collection identified in the anterior right amputation stump as described above. This collection is amenable to ultrasound-guided aspiration/drainage if clinically indicated.
[2017-12-28] VITALS: BP 104/60
--- NOTE | 2017-12-28 07:33 | PN- Resident CRCU ---
Laron MARTINEZ,Jerzy 12/28/17 0733: Subjective HPI/CRCU Issues: Staph aureus bacteremia ESRD Septic shock Saw patient at bedside this a.m. He stated that he was feeling well. He was getting dialysis. He is still on Levaquin at 2.5 mcg/h. No acute overnight events. 24 Hour Events: MAXIMUM TEMPERATURE 100.0. Heart 66 and 81, normal sinus rhythm. 18 and 28. BP between 80/47 and 112/61. Last blood sugars 162, 162, 153, 106. Satting between 96-99% on 2 L O2 Objective Vital Signs & I&O Last 8 Hrs of Vitals and I&O: Intake & Output 12/28 1600 Intake Total Output Total Balance Patient 94.007 kg Weight Weight Bed scale Measurement Method Exam General Appearance: well developed/nourished, no apparent distress, alert Head: atraumatic, normal appearance Ears, Nose, Throat: normal pharynx Neck: normal inspection Respiratory: normal breath sounds, no respiratory distress Cardiovascular: regular rate/rhythm Gastrointestinal: soft, non-tender Extremities: RIGHT-SIDED aka WRAPPED IN BANDAGE WHICH LOOKS CLEAN Current Medications: Current Medications Sig/Bobo Start time Last Medication Dose Route Stop Time Status Admin Acetaminophen 650 MG Q4P PRN 12/26 2100 AC 12/26 PO 2326 Aspirin Buffered 81 MG DAILY 12/27 1000 AC 12/28 PO 1313 Atorvastatin Calcium 10 MG 1700 12/27 1700 AC 12/27 PO 1723 Ceftazidime 1,000 MG Q24H 12/27 1800 DC 12/27 IV 1718 Cinacalcet 30 MG 0 12/27 1700 AC 12/27 PO 1719 Clopidogrel Bisulfate 75 MG DAILY 12/27 1000 AC 12/28 PO 1312 Cyanocobalamin 1,000 MCG DAILY 12/27 1000 AC 12/27 PO 0924 Docusate Sodium 100 MG DAILY 12/27 1000 AC 12/27 PO 0924 Epoetin Jaron 3,000 UNIT DAILY NEEDED PRN 12/28 0700 AC 12/28 IV 0900 Epoetin Jaron 2,000 UNIT DAILY NEEDED PRN 12/28 0700 AC 12/28 IV 0900 Lidocaine 1 ML .STK-MED ONE 12/28 1454 DC ID 12/28 1455 Lidocaine/Prilocaine 1 GAVI DAILY PRN 12/28 0700 AC 12/28 TOP 0900 Multivitamins 1 TAB DAILY 12/27 1000 AC 12/27 PO 0924 Norepinephrine 8 MG Q24H 12/27 0115 AC 12/28 Sodium Chloride 250 ML IV 0258 Sevelamer Carbonate 2,400 MG WM 12/27 1200 AC 12/27 PO 1718 Vancomycin HCl 750 MG ONCE ONE 12/28 1100 DC 12/28 Sodium Chloride 250 ML IV 12/28 1159 1200 Vancomycin HCl 625 MG ONCE ONE 12/28 1030 CAN IV 12/28 1031 Impression/Plan Impression/Problem List Impression: This is a 57-year-old gentleman w/ PMH of CAD recent PCI with drug-eluting stent in [facility] in September 2017, s/p quadriple CABG (2006), history of T2DM, ESRD on MWF dialysis, 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 He comes in for CC of malaise, lethargy and hypotension noted during routine dialysis appointment. In ED pt was found to be febrile, tachycardic, and hypotensive with inappropriate response to 3 L IVF. Pt dx with septic shock due to unknown source and started on broad spectrum abx and pressors thru R. fem central line. He also transiently went into afib but not started on Heparin due to concern for bleed from femoral site. PLAN Respiratory: Stable. Pt on RA vs 2L O2 and satting well. Infectious disease: Septic shock secondary to unknown source: Differential includes healthcare associated pneumonia given CAT scan findings, osteoporosis/BKA stump infection, endocarditis. Patient has history of C. difficile but is not complaining of diarrhea or abdominal pain at this time. BCX x2 + gram-positive cocci likely MSSA. He requires low-dose levophed despite 3 L of resuscitation. This a.m. his white count is 5.2 w/ no bands. TTE does not comment on any mitral vegetation. * Holding his home hypertensive medication * Continue Vancomycin per dialysis protocol * Appreciate infectious disease recommendations * Stump imaging shows aspirable collection. Pt is due for IR guided aspiration today. * Continue to monitor blood cultures for final speciation * Pending other cultures * Pending IR cultures of aspirate * ??Regarding intervention for osteomyelitis * Second bcx drawn today * Pending re-read of TTE by cardiology for further eval of his mitral valve * Pending IR results will consider further eval of osteo of l. leg w/ MRI. Cardiovascular: Atrial fibrillation: Pt had transient episode of a.fib x1 yesterday and had similar episode during previous hospitalization when he was septic. It looks like he went back into afib again today since noon. He is having similar T-wave changes that were seen previously. Note pt not on AC. Pt is on plavix and ASA. * Monitor on tele * Appreciate cardio recs regarding anticoagulation Hypotension: Patient has right femoral triple-lumen catheter inserted on 2017. He is currently on 2.5 mics of levo fed double concentrated. * Hold Lopressor * Hold lisinopril Elevated troponin: RESOLVED.Thought to be 2/2 demand. Not on any AC. Trops have trended down and we stopped checking on 12/27/2017. * Appreciate cardiology recs CAD: Chronic and stable * Continue Aspirin * Continue Statin * Continue Clopidogrel Heme/Onc: Anemia: Hemoglobin 8.9. Seems to be around his baseline. Chronic and stable. * We'll type and cross * Transfusion as necessary Metabolic: Stable Alimentary: Dialysis diet Nephro: ESRD: * Dialysis today * Continue sevelemer DVT prophylaxis Problem List: 1. Sepsis 2. Renal failure Pain Ratin Tomorrow's Labs & Rationales: icu cbc Plan DVT/Prophylaxis: mechanical Saul Alvarenga MD 12/28/17 1110: Attending MD Review Statement Attending Sign Off Other Findings: Saul Evans M.D. have examined this patient, reviewed available EMR data, personally reviewed images, discussed with resident/PA/CHEMICAL MILLING PROCESSOR, discussed management plan with housestaff and nursing staff, discussed managment plan all of healthcare providers, discussed management plan with patient and/or family, agreed with resident/PA/CHEMICAL MILLING PROCESSOR. The past history and parts of the chart have been autopopulated. Impression 57 year old man * fever, unclear source, can be soft tissue infection, recent endocarditis tx * hypotension is relative and has a hx of low bp at baseline * ESRD on HD Plan -nephrology, cardiology appreciated -ID consultation appreciated and vascular surgery -cont abx, f/u vancomycin levels -on HD currently -f/u all cx -titrate pressors to off then remove femoral line once stabilized -eventual YULIA maybe necessary -will follow up plan for MRI vs IR vs surgical intervention for soft tissue infection, given plavix will may need to be postponed, will d/w cardiology need for heparin gtt DVT prophylaxis at all times TTS 40 min
[2017-12-28 08:00] VITALS: BP 100/60
--- NOTE | 2017-12-28 08:00 | PN- Nephrology ---
Assessment/Plan Nephrology Assessment: ESRD, recurrent gram positive bactermia, presumably MSSA from either heart or stump. Suggestion: Dialsyis today, will try to get closer to EDW of 92 kg with 2-3 liter UF if bp will allow. Subjective Subjective: Patient awake today, no new complaints. Afebrile. BP still running on low side and he is on Levophed, but normal pre-dialysis BPs often in upper 90s or low 100s. Results of cultures noted. Objective Vital Signs and I&Os Vital Signs Date Time Temp Pulse Resp B/P B/P Pulse O2 O2 Flow FiO2 Mean Ox Delivery Rate 12/28 0527 68 96 12/28 0400 96 CPAP 12/28 0332 68 96 12/28 0258 67 22 95/55 12/28 0052 72 94 12/28 0000 97 Nasal 2.0L Cannula 12/28 0000 97.6 74 20 104/60 97 Nasal 2.0L Cannula 12/27 2000 97 Nasal 2.0L Cannula 12/27 1600 97 Room Air Room Air 12/27 1600 98.0 77 22 98/50 97 Room Air Room Air 12/27 1200 96.6 74 24 86/58 96 Room Air Room Air 12/27 1200 96 Room Air Room Air 12/27 0800 99 Room Air Room Air 12/27 0800 97.7 77 24 102/58 99 Room Air Room Air Intake & Output 12/28 1600 12/28 0400 12/27 1600 12/27 0400 12/26 1600 12/26 0400 Intake Total 46 301 1404 3200 Output Total 0 0 0 Balance 46 301 1404 3200 Intake, IV 46 61 304 3000 Intake, Oral 0 240 1100 200 Number 0 0 0 Bowel Movements Output, Urine 0 0 0 Patient 216 lb 214 lb 202 lb Weight Weight Bed scale Bed scale Reported by Patient Measurement Method Physical Exam: NAD VS as above Lungs: some diminished breath sounds at bases CV: no rub Abd : [place] Exts: no edema Neuro: A&O Current Medications: Current Medications Sig/Bobo Start time Last Medication Dose Route Stop Time Status Admin Acetaminophen 650 MG Q4P PRN 12/26 2100 AC 12/26 PO 2326 Aspirin Buffered 81 MG DAILY 12/27 1000 AC 12/27 PO 0924 Atorvastatin Calcium 10 MG 1700 12/27 1700 AC 12/27 PO 1723 Ceftazidime 1,000 MG Q24H 12/27 1800 DC 12/27 IV 1718 Cinacalcet 30 MG 1700 12/27 1700 AC 12/27 PO 1719 Cinacalcet 30 MG DAILY 12/27 1000 DC PO Clopidogrel Bisulfate 75 MG DAILY 12/27 1000 AC 12/27 PO 0924 Cyanocobalamin 1,000 MCG DAILY 12/27 1000 AC 12/27 PO 0924 Docusate Sodium 100 MG DAILY 12/27 1000 AC 12/27 PO 0924 Epoetin Jaron 3,000 UNIT DAILY NEEDED PRN 12/28 0700 AC IV Epoetin Jaron 2,000 UNIT DAILY NEEDED PRN 12/28 0700 AC IV Lidocaine/Prilocaine 1 GAVI DAILY PRN 12/28 0700 AC TOP Multivitamins 1 TAB DAILY 12/27 1000 AC 12/27 PO 0924 Norepinephrine 8 MG Q24H 12/27 0115 AC 12/28 Sodium Chloride 250 ML IV 0258 Sevelamer Carbonate 2,400 MG WM 12/27 1200 AC 12/27 PO 1718 Sevelamer Carbonate 800 MG WM 12/27 0800 DC 12/27 PO 0834 Results Pertinent Lab Results: Laboratory Tests 12/27 12/27 12/27 1740 1200 0530 Chemistry Troponin I (<0.11 ng/ml) 0.14 *H 0.15 *H 0.23 *H 12/27 12/27 0530 0140 Chemistry Sodium (137 - 145 mmol/L) 142 Potassium (3.5 - 5.1 mmol/L) 4.4 Chloride (98 - 107 mmol/L) 106 Carbon Dioxide (22 - 30 mmol/L) 22 Anion Gap (5 - 16) 14 BUN (9 - 20 mg/dL) 29 H Creatinine (0.7 - 1.2 mg/dL) 4.3 H Estimated GFR (>60 ml/min) 14 L Glucose (65 - 99 mg/dL) 125 H Calcium (8.4 - 10.2 mg/dL) 8.7 Phosphorus (2.5 - 4.5 mg/dL) 4.0 Magnesium (1.6 - 2.3 mg/dL) 2.1 Total Bilirubin (0.2 - 1.3 mg/dL) 0.5 AST (17 - 59 U/L) 21 ALT (21 - 72 U/L) 17 L Albumin (3.5 - 5.0 g/dL) 3.0 L Coagulation Fibrinogen Activity (200 - 393 MG/DL) 417 H D-Dimer High Sensitivty (0 - 243 ng/ml) 1182 H Hematology CBC w Diff MAN DIFF ORDERED MAN DIFF ORDERED WBC (4.8 - 10.8 /CUMM) 6.2 4.4 L RBC (4.70 - 6.10 /CUMM) 2.99 L 2.88 L Hgb (14.0 - 18.0 G/DL) 9.2 L 8.8 L Hct (42 - 52 %) 27.9 L 26.6 L MCV (80.0 - 94.0 FL) 93.3 92.4 MCH (27.0 - 31.0 PG) 30.8 30.6 MCHC (33.0 - 37.0 G/DL) 33.1 33.1 RDW (11.5 - 14.5 %) 15.4 H 15.3 H Plt Count (130 - 400 /CUMM) 90 L 68 L MPV (7.4 - 10.4 FL) 10.0 9.9 Gran % (42.2 - 75.2 %) 87.0 H 85.8 H Lymphocytes % (20.5 - 51.1 %) 6.3 L 7.9 L Monocytes % (1.7 - 9.3 %) 6.2 6.1 Eosinophils % (0 - 5 %) 0 0 Basophils % (0.0 - 2.0 %) 0.5 0.2 Absolute Granulocytes (1.4 - 6.5 /CUMM) 5.4 3.7 Segmented Neutrophils (42.2 - 75.2 %) 79 H 76 H Band Neutrophils (0.0 - 5.0 %) 9 H 13 H Absolute Lymphocytes (1.2 - 3.4 /CUMM) 0.4 L 0.3 L Lymphocytes (20.5 - 51.1 %) 8 L 6 L Monocytes (1.7 - 9.3 %) 4 5 Absolute Monocytes (0.10 - 0.60 /CUMM) 0.4 0.3 Absolute Eosinophils (0.0 - 0.7 /CUMM) 0 0 Absolute Basophils (0.0 - 0.2 /CUMM) 0 0 Platelet Estimate (ADEQUATE) DECREASED DECREASED Hypochromic-Microcytic 1+ 2+ Poikilocytosis 1+ Basophilic Stippling 1+ Ovalocytes 1+ 1+ 02/19 02/19 02/19 2320 2022 1542 Chemistry Sodium (137 - 145 mmol/L) 143 Potassium (3.5 - 5.1 mmol/L) 4.6 3.4 L Chloride (98 - 107 mmol/L) 103 Carbon Dioxide (22 - 30 mmol/L) 24 Anion Gap (5 - 16) 16 BUN (9 - 20 mg/dL) 21 H Creatinine (0.7 - 1.2 mg/dL) 3.5 H Estimated GFR (>60 ml/min) 18 L BUN/Creatinine Ratio (7 - 25 %) 6.0 L Glucose (65 - 99 mg/dL) 133 H Hemoglobin A1c (4.2 - 5.8 %) 4.9 Lactic Acid (0.7 - 2.1 mmol/L) 1.0 1.4 Calcium (8.4 - 10.2 mg/dL) 8.8 Magnesium (1.6 - 2.3 mg/dL) 1.4 L Total Bilirubin (0.2 - 1.3 mg/dL) 0.6 AST (17 - 59 U/L) 13 L ALT (21 - 72 U/L) 18 L Alkaline Phosphatase (< 127 U/L) 121 Troponin I (<0.11 ng/ml) 0.15 *H 0.05 [id number] Pept (<125 pg/mL) 65200 H Total Protein (6.3 - 8.2 g/dL) 6.9 Albumin (3.5 - 5.0 g/dL) 3.9 Globulin (1.9 - 4.2 gm/dL) 3.0 Albumin/Globulin Ratio (1.1 - 2.2 %) 1.3 TSH (0.270 - 4.200 uIU/mL) 0.801 Thyroxine (T4) (4.5 - 10.9 ug/dL) 5.2 Prolactin (3.7 - 17.9 ng/mL) 29.3 H Coagulation PT (9.4 - 12.5 SEC) 11.9 INR (0.90 - 1.17) 1.13 APTT (25 - 37 SEC) 28 Hematology CBC w Diff NO MAN DIFF REQ WBC (4.8 - 10.8 /CUMM) 4.0 L RBC (4.70 - 6.10 /CUMM) 3.31 L Hgb (14.0 - 18.0 G/DL) 10.2 L Hct (42 - 52 %) 30.6 L MCV (80.0 - 94.0 FL) 92.5 MCH (27.0 - 31.0 PG) 30.8 MCHC (33.0 - 37.0 G/DL) 33.3 RDW (11.5 - 14.5 %) 15.2 H Plt Count (130 - 400 /CUMM) 83 L MPV (7.4 - 10.4 FL) 9.6 Gran % (42.2 - 75.2 %) 91.7 H Lymphocytes % (20.5 - 51.1 %) 3.7 L Monocytes % (1.7 - 9.3 %) 3.7 Eosinophils % (0 - 5 %) 0.5 Basophils % (0.0 - 2.0 %) 0.4 Absolute Granulocytes (1.4 - 6.5 /CUMM) 3.7 Absolute Lymphocytes (1.2 - 3.4 /CUMM) 0.1 L Absolute Monocytes (0.10 - 0.60 /CUMM) 0.1 Absolute Eosinophils (0.0 - 0.7 /CUMM) 0 Absolute Basophils (0.0 - 0.2 /CUMM) 0 ESR Westergren (0 - 10 MM) 35 H 12/26 12/26 1525 1509 Serology Virus Culture Pending Urines Urine Color Cancelled Urine Clarity Cancelled Urine pH Cancelled Ur Specific [place] Cancelled Urine Protein Cancelled Urine Ketones Cancelled Urine Nitrite Cancelled Urine Bilirubin Cancelled Urine Urobilinogen Cancelled Ur Leukocyte Esterase Cancelled Ur Microscopic Cancelled Urine Hemoglobin Cancelled Urine Glucose Cancelled
[2017-12-28 08:40] LABS: ABSOLUTE BASOPHIL COUNT 0 /CUMM (0.0-0.2); ABSOLUTE EOSINOPHIL COUNT 0.1 /CUMM (0.0-0.7); ABSOLUTE GRANULOCYTE CT 3.7 /CUMM (1.4-6.5); ABSOLUTE LYMPH COUNT 0.9 /CUMM (1.2-3.4); ABSOLUTE MONOCYTE COUNT 0.5 /CUMM (0.10-0.60); BASOPHIL % 0.5 % (0.0-2.0); EOSINOPHIL % 1.3 % (0-5); GRANULOCYTE % 70.8 % (42.2-75.2); HEMATOCRIT 27.1 % (42-52); MEAN CORPUSCULAR HGB 30.4 PG (27.0-31.0); MEAN CORPUSCULAR HGB CONC 32.9 G/DL (33.0-37.0); MEAN CORPUSCULAR VOLUME 92.5 FL (80.0-94.0); MEAN PLATELET VOLUME 10.6 FL (7.4-10.4); PLATELET COUNT 90 /CUMM (130-400); RBC DISTRIBUTION WIDTH 15.2 % (11.5-14.5); RED BLOOD CELL CT 2.93 /CUMM (4.70-6.10); WHITE BLOOD CELL COUNT 5.3 /CUMM (4.8-10.8)
--- NOTE | 2017-12-28 11:18 | PN- Infect Dx ---
Subjective Subjective: Afebrile without complaints. Objective Last 24 Hrs of Vital Signs/I&O Vital Signs Date Time Temp Pulse Resp B/P B/P Pulse O2 O2 Flow FiO2 Mean Ox Delivery Rate 12/28 0800 97 Room Air Room Air 12/28 0800 97.7 72 20 100/60 97 Room Air Room Air 12/28 0527 68 96 12/28 0400 96 CPAP 12/28 0332 68 96 12/28 0258 67 22 95/55 12/28 0052 72 94 12/28 0000 97 Nasal 2.0L Cannula 12/28 0000 97.6 74 20 104/60 97 Nasal 2.0L Cannula 12/27 2000 97 Nasal 2.0L Cannula 12/27 1600 97 Room Air Room Air 12/27 1600 98.0 77 22 98/50 97 Room Air Room Air 12/27 1200 96.6 74 24 86/58 96 Room Air Room Air 12/27 1200 96 Room Air Room Air Intake & Output 12/28 1600 12/28 0800 12/28 0000 Intake Total 46 301 Output Total 0 Balance 46 301 Intake, IV 46 61 Intake, Oral 0 240 Number 0 Bowel Movements Output, Urine 0 Patient 217 lb 216 lb Weight Weight Bed scale Measurement Method Physical Exam Other Physical Findings: He appears comfortable in no acute distress Lungs are clear Heart regular rhythm with no murmur Extremities right leg stocking in place Results Last 24 Hours of Lab Results: Laboratory Tests 12/28 12/28 12/27 0815 0815 1740 Chemistry Sodium (137 - 145 mmol/L) 138 137 Potassium (3.5 - 5.1 mmol/L) 4.8 4.7 Chloride (98 - 107 mmol/L) 105 104 Carbon Dioxide (22 - 30 mmol/L) 18 L 18 L Anion Gap (5 - 16) 15 15 BUN (9 - 20 mg/dL) 50 H 50 H Creatinine (0.7 - 1.2 mg/dL) 6.1 *H 6.1 *H Estimated GFR (>60 ml/min) 10 L 10 L BUN/Creatinine Ratio (7 - 25 %) 8.2 Glucose (65 - 99 mg/dL) 114 H Calcium (8.4 - 10.2 mg/dL) 8.7 8.6 Phosphorus (2.5 - 4.5 mg/dL) 4.2 4.2 Magnesium (1.6 - 2.3 mg/dL) 2.2 Total Bilirubin (0.2 - 1.3 mg/dL) 0.4 AST (17 - 59 U/L) 15 L ALT (21 - 72 U/L) 18 L Troponin I (<0.11 ng/ml) 0.14 *H Albumin (3.5 - 5.0 g/dL) 2.9 L Hematology CBC w Diff NO MAN DIFF REQ WBC (4.8 - 10.8 /CUMM) 5.3 RBC (4.70 - 6.10 /CUMM) 2.93 L Hgb (14.0 - 18.0 G/DL) 8.9 L Hct (42 - 52 %) 27.1 L MCV (80.0 - 94.0 FL) 92.5 MCH (27.0 - 31.0 PG) 30.4 MCHC (33.0 - 37.0 G/DL) 32.9 L RDW (11.5 - 14.5 %) 15.2 H Plt Count (130 - 400 /CUMM) 90 L MPV (7.4 - 10.4 FL) 10.6 H Gran % (42.2 - 75.2 %) 70.8 Lymphocytes % (20.5 - 51.1 %) 17.6 L Monocytes % (1.7 - 9.3 %) 9.8 H Eosinophils % (0 - 5 %) 1.3 Basophils % (0.0 - 2.0 %) 0.5 Absolute Granulocytes (1.4 - 6.5 /CUMM) 3.7 Absolute Lymphocytes (1.2 - 3.4 /CUMM) 0.9 L Absolute Monocytes (0.10 - 0.60 /CUMM) 0.5 Absolute Eosinophils (0.0 - 0.7 /CUMM) 0.1 Absolute Basophils (0.0 - 0.2 /CUMM) 0 Toxicology Random Vancomycin (ug/ml) 14.2 12/27 1200 Chemistry Troponin I (<0.11 ng/ml) 0.15 *H Last 24 Hours of Brendan Results: Blood cultures December 26 positive for Staph aureus, sensitivities pending Blood cultures December 28 pending Recent Imaging Studies: Ultrasound of the right BKA stump December 27 reveals a small, 1.8 x 0.3 x 1.5 cm, fluid collection in the anterior right amputation stump adjacent to the residual tibia Assessment/Plan ID Impression: Improved, with temperatures now normal and white blood cell count remaining normal, on Vancomycin, Day 2 of treatment for Staph aureus sepsis, most likely secondary to an infected right BKA stump, with the ultrasound revealing a small collection. Have discussed results with Vascular surgery, who will evaluate patient later. Aspiration of the collection could be pursued, though it is not clear this will change his management as suspect he will require a right AKA, which was already planned for the near future. An MRI could be considered though, again, not sure this will change his management. A relapse of endocarditis is possible, though his transthoracic echo yesterday was read as negative. Suggestion: 1. Await Vascular surgery follow-up regarding further management of his right BKA stump 2. Await Cardiology follow-up regarding his recent echocardiogram and possible YULIA 3. Follow-up final blood cultures 4. Re-dose with Vancomycin today per dialysis protocol
--- NOTE | 2017-12-28 15:09 | PN- Cardiology ---
Subjective Subjective: Resting comfortably. Feels well. Remains on IV pressors. Objective Vital Signs and I&Os Vital Signs Date Time Temp Pulse Resp B/P B/P Pulse O2 O2 Flow FiO2 Mean Ox Delivery Rate 12/28 1200 97 Room Air Room Air 12/28 0800 97 Room Air Room Air 12/28 0800 97.7 72 20 100/60 97 Room Air Room Air 12/28 0527 68 96 12/28 0400 96 CPAP 12/28 0332 68 96 12/28 0258 67 22 95/55 12/28 0052 72 94 12/28 0000 97 Nasal 2.0L Cannula 12/28 0000 97.6 74 20 104/60 97 Nasal 2.0L Cannula 12/27 2000 97 Nasal 2.0L Cannula 12/27 1600 97 Room Air Room Air 12/27 1600 98.0 77 22 98/50 97 Room Air Room Air Intake & Output 12/28 1600 12/28 0800 12/28 0000 12/27 1600 12/27 0800 12/27 0000 Intake Total 46 301 029 706 2940 Output Total 0 0 0 Balance 46 301 743 072 1302 Intake, IV 46 61 42 262 3000 Intake, Oral 0 240 700 400 200 Number 0 0 0 Bowel Movements Output, Urine 0 0 0 Patient 207 lb 216 lb 214 lb Weight Weight Bed scale Bed scale Bed scale Measurement Method Physical Exam: General: no distress, alert Eyes: No obvious scleral icterus. HEENT: No jugular venous distention or abnormal jugular venous pulsations. Cardiovascular: Normal intensity S1/S2. irregular Respiratory: no rales/ronchi Abdomen: Soft, nontender with no guarding or rebound tenderness. Musculoskeletal: No clubbing or cyanosis noted; prior BKA without pain/erythema Skin: Warm Neurologic: normal speech Current Medications: Current Medications Sig/Bobo Start time Last Medication Dose Route Stop Time Status Admin Acetaminophen 650 MG Q4P PRN 12/26 2100 AC 12/26 PO 2326 Aspirin Buffered 81 MG DAILY 12/27 1000 AC 12/28 PO 1313 Atorvastatin Calcium 10 MG 12/27 1700 AC 12/27 PO 1723 Ceftazidime 1,000 MG Q24H 12/27 1800 DC 12/27 IV 1718 Cinacalcet 30 MG 1700 12/27 1700 AC 12/27 PO 1719 Clopidogrel Bisulfate 75 MG DAILY 12/27 1000 AC 12/28 PO 1312 Cyanocobalamin 1,000 MCG DAILY 12/27 1000 AC 12/27 PO 0924 Docusate Sodium 100 MG DAILY 12/27 1000 AC 12/27 PO 0924 Epoetin Jaron 3,000 UNIT DAILY NEEDED PRN 12/28 0700 AC 12/28 IV 0900 Epoetin Jaron 2,000 UNIT DAILY NEEDED PRN 12/28 0700 AC 12/28 IV 0900 Lidocaine 1 ML .STK-MED ONE 12/28 1454 DC ID 12/28 1455 Lidocaine/Prilocaine 1 GAVI DAILY PRN 12/28 0700 AC 12/28 TOP 0900 Multivitamins 1 TAB DAILY 12/27 1000 AC 12/27 PO 0924 Norepinephrine 8 MG Q24H 12/27 0115 AC 12/28 Sodium Chloride 250 ML IV 0258 Sevelamer Carbonate 2,400 MG WM 12/27 1200 AC 12/27 PO 1718 Vancomycin HCl 750 MG ONCE ONE 12/28 1100 DC 12/28 Sodium Chloride 250 ML IV 12/28 1159 1200 Vancomycin HCl 625 MG ONCE ONE 12/28 1030 CAN IV 12/28 1031 Results Last 48 Hrs of Labs/Mics: Laboratory Tests 12/28/17 1353: Fluid WBC Cancelled, Fld Total RBCs Counted Cancelled 12/28/17 0815: Anion Gap 15, Estimated GFR 10 L, BUN/Creatinine Ratio 8.2, Calcium 8.7, Phosphorus 4.2 12/28/17 0815: Anion Gap 15, Estimated GFR 10 L, Glucose 114 H, Calcium 8.6, Phosphorus 4.2, Magnesium 2.2, Total Bilirubin 0.4, AST 15 L, ALT 18 L, Albumin 2.9 L, CBC w Diff NO MAN DIFF REQ, RBC 2.93 L, MCV 92.5, MCH 30.4, MCHC 32.9 L, RDW 15.2 H , MPV 10.6 H, Gran % 70.8, Lymphocytes % 17.6 L, Monocytes % 9.8 H, Eosinophils % 1.3, Basophils % 0.5, Absolute Granulocytes 3.7, Absolute Lymphocytes 0.9 L, Absolute Monocytes 0.5, Absolute Eosinophils 0.1, Absolute Basophils 0, Random Vancomycin 14.2 12/27/17 1740: Troponin I 0.14 *H 12/27/17 1200: Troponin I 0.15 *H 12/27/17 0530: Troponin I 0.23 *H 12/27/17 0530: Anion Gap 14, Estimated GFR 14 L, Glucose 125 H, Calcium 8.7, Phosphorus 4.0, Magnesium 2.1, Total Bilirubin 0.5, AST 21, ALT 17 L, Albumin 3.0 L, Fibrinogen Activity 417 H, D-Dimer High Sensitivty 1182 H, CBC w Diff MAN DIFF ORDERED, RBC 2.99 L, MCV 93.3, MCH 30.8, MCHC 33.1, RDW 15.4 H, MPV 10.0, Gran % 87.0 H, Lymphocytes % 6.3 L, Monocytes % 6.2, Eosinophils % 0, Basophils % 0.5, Absolute Granulocytes 5.4, Segmented Neutrophils 79 H, Band Neutrophils 9 H, Absolute Lymphocytes 0.4 L, Lymphocytes 8 L, Monocytes 4, Absolute Monocytes 0.4, Absolute Eosinophils 0, Absolute Basophils 0, Platelet Estimate DECREASED, Hypochromic-Microcytic 1+, Poikilocytosis 1+, Ovalocytes 1+ 12/27/17 0140: CBC w Diff MAN DIFF ORDERED, RBC 2.88 L, MCV 92.4, MCH 30.6, MCHC 33.1, RDW 15.3 H, MPV 9.9, Gran % 85.8 H, Lymphocytes % 7.9 L, Monocytes % 6.1, Eosinophils % 0, Basophils % 0.2, Absolute Granulocytes 3.7, Segmented Neutrophils 76 H, Band Neutrophils 13 H, Absolute Lymphocytes 0.3 L, Lymphocytes 6 L, Monocytes 5, Absolute Monocytes 0.3, Absolute Eosinophils 0, Absolute Basophils 0, Platelet Estimate DECREASED, Hypochromic-Microcytic 2+, Basophilic Stippling 1+, Ovalocytes 1+ 12/26/172319: Magnesium 1.4 L, Troponin I 0.15 *H, ESR Westergren 35 H 12/26/172021: Lactic Acid 1.0 12/26/17 1542: Anion Gap 16, Estimated GFR 18 L, BUN/Creatinine Ratio 6.0 L, Glucose 133 H, Hemoglobin A1c 4.9, Lactic Acid 1.4, Calcium 8.8, Total Bilirubin 0.6, AST 13 L , ALT 18 L, Alkaline Phosphatase 121, Troponin I 0.05, [id number]-Tbikerdaxjf Pept 20816 H, Total Protein 6.9, Albumin 3.9, Globulin 3.0, Albumin/Globulin Ratio 1.3, TSH 0.801, Thyroxine (T4) 5.2, Prolactin 29.3 H, PT 11.9, INR 1.13, APTT 28, CBC w Diff NO MAN DIFF REQ, RBC 3.31 L, MCV 92.5, MCH 30.8, MCHC 33.3, RDW 15.2 H, MPV 9.6, Gran % 91.7 H, Lymphocytes % 3.7 L, Monocytes % 3.7, Eosinophils % 0.5, Basophils % 0.4, Absolute Granulocytes 3.7, Absolute Lymphocytes 0.1 L, Absolute Monocytes 0.1, Absolute Eosinophils 0, Absolute Basophils 0 12/26/17 1525: Virus Culture Pending Microbiology 12/26 2119 UPPER RESP: Surveillance Culture - COMP 12/26 2119 GI: Surveillance Culture - COMP 12/26 1524 NASOPHARYN: Influenza Virus A & B Rapid Smear - COMP Recent Imaging Studies: Telemetry tracings personally reviewed; shows SR with recurrent atrial fibrillation (without tacycardia) Echo: Normal left and right ventricular systolic function. Mild to moderate Mitral and tricuspid regurgitation. Moderate to severe Pulmonary hypertension. Erasto Trinidad M.D. (Electronically Signed) Final Date: 27 December 2017 12:36 Assessment/Plan Assessment/Plan 1. Coronary disease by history status post coronary bypass surgery 2006 with complex PCI to the left main into the circumflex September 2017 with normal LV function 2. Hx of Hypertension 3. Peripheral arterial disease status post prior amputation 4. End-stage renal disease on dialysis 5. 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 Diabetes 7. Fever and chills with hypotension most likely secondary to sepsis. 8. Elevated troponins, minimal, not due to ACS 9. Intermittent atrial fibrillation possibly due to sepsis Patient remains on IV pressors but looks well. Given recurrent afib would start IV Heparin gtt if no medical contraindication. Continue dual APT and daily statin. Repeat Echo as above. Despite PAF no sustained tachycardia noted, hold B-debbi while on pressors. I discussed with patient and Dr. Stone at length today. Will likely need YULIA prior to discharge when off pressors and possibly after surgery. No urgent indication for YULIA today but will continue to monitor closely. Remains on Abx. Wean off pressors as BP tolerates. Rocco Jimenez MD FACC Continue telemetry? Yes
--- NOTE | 2017-12-28 15:52 | ULTRASOUND REPORT ---
CLINICAL HISTORY: The patient is a 57-year-old male with below the knee and dictation with history of osteomyelitis. Ultrasound performed yesterday suggested a focal fluid collection at the stump. Interventional radiology is consulted for ultrasound-guided aspiration of this fluid. PROCEDURES: 1. Limited ultrasound of the right lower extremity below the knee amputation stump. 2. Ultrasound-guided sampling of the hypoechoic soft tissue in the area of concern at the right BKA stump. PHYSICIANS: Oksana Meyer M.D., Ph.D. (attending). MEDICATIONS: 5 mL of 1% lidocaine SQ. COMPLICATIONS: None. ESTIMATED BLOOD LOSS: <5 mL. SPECIMENS: Blood-tinged fluid from the BKA stump hypoechoic soft tissue region. IMPLANT: None. SITE MARKING: As part of the preprocedure verification policy, a site marking procedure was initiated. Due to the nature the procedure, the insertion site could not be predetermined thus invoking the policy of exemption to site laterality and marking. Insertion site marking was performed in the procedure room in conjunction with imaging confirmation. PROCEDURE NOTE: Informed consent was obtained from the patient prior to the procedure. During this process, the procedure and potential alternatives were explained along with the intended outcome and benefits. The risks of the procedure, including the possibility of an unsuccessful procedure, as well as the risk of not doing the procedure, were discussed. The patient was given the opportunity to ask questions regarding the procedure and appeared competent to make decisions. A signed consent form documenting this discussion was placed in the medical record. A time-out procedure was performed. The patient was placed supine on the hospital bed. The right BKA stump was prepped and draped in usual sterile fashion. All elements of maximal sterile barrier technique followed including use of cap, mask, sterile gown, sterile gloves, a sterile full body drape and hand hygiene. Also followed skin preparation with 2% chlorhexidine for cutaneous antisepsis, and sterile ultrasound preparation with sterile gel and probe cover when applicable. 5 mL of 1% lidocaine was used to obtain local anesthesia of the skin and deeper tissues. Under ultrasound guidance, a 5 [employer] needle catheter device was advanced into the area of hypoechogenicity is identified on ultrasound. No fluid was able to be aspirated. This appeared to be solid tissue, likely scar tissue. There is the possibility of underlying phlegmon, therefore an 18-gauge needle was then advanced into this area and a second attempt at aspiration also failed. A small amount of blood-tinged fluid was seen in the syringe, likely reaspirated lidocaine. The catheter from the [facility] as well as the 18-gauge needle and 10 mL aspiration syringe were all sent for culture. The patient tolerated the procedure well. FINDINGS: Solid-appearing scar tissue and/or phlegmon in the area of concern at the anterior aspect of the right below the knee amputation stump. No fluid was able to be aspirated, however blood tinged droplets were seen in the syringe, in the catheter and in the 18-gauge needle, all of which were sent for culture. IMPRESSION: No focal fluid collection at the below knee amputation stump. A hypoechoic area identified on ultrasound appears to be scar tissue and/or phlegmon. The catheter and 18-gauge needle that were passed into this region were both sent for culture. Droplets of blood tinged lidocaine were aspirated from the site and were also sent.
[2017-12-28 16:00] VITALS: BP 100/60
[2017-12-29] VITALS: BP 100/50
[2017-12-29 06:12] LABS: ABSOLUTE BASOPHIL COUNT 0 /CUMM (0.0-0.2); ABSOLUTE EOSINOPHIL COUNT 0.1 /CUMM (0.0-0.7); ABSOLUTE GRANULOCYTE CT 3.5 /CUMM (1.4-6.5); ABSOLUTE LYMPH COUNT 1.3 /CUMM (1.2-3.4); ABSOLUTE MONOCYTE COUNT 0.4 /CUMM (0.10-0.60); BASOPHIL % 0.6 % (0.0-2.0); EOSINOPHIL % 1.9 % (0-5); HEMATOCRIT 27.1 % (42-52); MEAN CORPUSCULAR HGB 30.4 PG (27.0-31.0); MEAN CORPUSCULAR HGB CONC 32.6 G/DL (33.0-37.0); MEAN PLATELET VOLUME 11.1 FL (7.4-10.4); RBC DISTRIBUTION WIDTH 15.5 % (11.5-14.5); RED BLOOD CELL CT 2.92 /CUMM (4.70-6.10); WHITE BLOOD CELL COUNT 5.4 /CUMM (4.8-10.8)
[2017-12-29 06:15] LABS: PTT 36 SEC (25-37)
[2017-12-29 06:36] LABS: PLATELET COUNT ND /CUMM (130-400)
--- NOTE | 2017-12-29 07:19 | PN- Resident CRCU ---
Laron MARTINEZ,Jerzy 12/29/17 0718: Subjective HPI/CRCU Issues: mssa bacteremia septic shock Saw pt at bedside this AM. No acute overnight events and no complaints. Pt states he feels well this AM. 24 Hour Events: Vitals: 96.9 98.8, heart rate between 69 and 84, blood pressure between 83/51 and 140/60, satting between 95 and 97 on room air and AutoPap at night. Last Accu-Chek 137, 98, 143. In: 5941 output: 3000 Objective Vital Signs & I&O Last 8 Hrs of Vitals and I&O: Intake & Output 12/29 1600 Intake Total 303 Output Total 1 Balance 302 Intake, IV 303 Output, Stool 1 Patient 93.894 kg Weight Weight Bed scale Measurement Method Exam General Appearance: well developed/nourished, no apparent distress, alert, awake Head: atraumatic, normal appearance Ears, Nose, Throat: normal ENT inspection Neck: normal inspection, supple Respiratory: normal breath sounds, chest non-tender Cardiovascular: regular rate/rhythm, systolic murmur Gastrointestinal: soft, non-tender Extremities: BKA on RLE., R. FEM TLC dressing in tact and clean Current Medications: Current Medications Sig/Bobo Start time Last Medication Dose Route Stop Time Status Admin Acetaminophen 650 MG Q4P PRN 12/26 2100 AC 12/26 PO 2326 Aspirin Buffered 81 MG DAILY 12/27 1000 AC 12/29 PO 0826 Atorvastatin Calcium 10 MG 1700 12/27 1700 AC 12/29 PO 1626 Cinacalcet 30 MG 1700 12/27 1700 AC 12/29 PO 1626 Clopidogrel Bisulfate 75 MG DAILY 12/27 1000 AC 12/29 PO 0826 Cyanocobalamin 1,000 MCG DAILY 12/27 1000 AC 12/29 PO 0826 Docusate Sodium 100 MG DAILY 12/27 1000 AC 12/29 PO 0826 Epoetin Jaron 3,000 UNIT DAILY NEEDED PRN 12/28 0700 AC 12/28 IV 0900 Epoetin Jaron 2,000 UNIT DAILY NEEDED PRN 12/28 0700 AC 12/28 IV 0900 Heparin Sodium 5,000 UNIT .STK-MED ONE 12/29 06 DC (Porcine) IV 12/29 0630 Heparin Sodium 25,000 UNIT Q24H 12/28 2014 AC 02/21 (Porcine) IV 213 Sodium Chloride 500 ML Lidocaine/Prilocaine 1 GAVI DAILY PRN 12/28 0700 AC 12/28 TOP 0900 Multivitamins 1 TAB DAILY 12/27 1000 AC 12/29 PO 0826 Norepinephrine 8 MG Q7H 12/29 1500 AC Sodium Chloride 250 ML IV Norepinephrine 8 MG Q24H 12/27 0115 DC 12/29 Sodium Chloride 250 ML IV 12/29 1515 0845 Sevelamer Carbonate 2,400 MG WM 12/27 1200 AC 12/29 PO 1626 Impression/Plan Impression/Problem List Impression: This is a 57-year-old gentleman w/ PMH of CAD recent PCI with drug-eluting stent in 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 He comes in for CC of malaise, lethargy and hypotension noted during routine dialysis appointment. In ED pt was found to be febrile, tachycardic, and hypotensive with inappropriate response to 3 L IVF. Pt dx with septic shock due to unknown source and started on broad spectrum abx and pressors thru R. fem central line. He has intermittently been in and out of afib and started on heparin drip. PLAN Respiratory: Stable. Pt on RA vs 2L O2 and satting well. Infectious disease: Septic shock secondary to unknown source: Differential includes , osteoporosis/ BKA stump infection, endocarditis, healthcare associated pneumonia given CAT scan findings. Patient has history of C. difficile but is not complaining of diarrhea or abdominal pain at this time. BCX x2 + MSSA; second set so far negative. TTE does not comment on any mitral vegetation. There is a YULIA tentatively scheduled on Tuesday as is possible OR intervention for AKA. Initially pt started on Ceftaz and Vanco, then narrowed to Vanco and today will change abx to 2g Cefazolin. He gets abx with dialysis so he is due to start Cefazolin tomorrow. He got Vanco on 12/28/2017. Aspirate of collection of r. knee so far negative. * Holding his home hypertensive medication * Continue Vancomycin per dialysis protocol * Appreciate infectious disease recommendations * Continue to monitor blood cultures * Pending other cultures * Start Cefazolin 2g daily tomorrow * YULIA tentatively scheduled for Tuesday. Cardiovascular: Atrial fibrillation: Pt paroxysmal afib and is itnermittently going in and out of a. fib. He is having similar T-wave changes that were seen previously. Pt started on Heparin on 12/28/2017 * Monitor on tele * Appreciate cardio recs regarding anticoagulation * Con't Heparin drip Hypotension: Patient has right femoral triple-lumen catheter inserted on 2017. He is currently on 2.5 mics of levo fed double concentrated. Will attempt to wean him off today. Given that his nml BP is around 90s systolic will titrate his MAP to 60. * Hold Lopressor * Hold lisinopril * Levophed as necessary. As soon as it is apparent he no longer requires pressors will remove TLC. Elevated troponin: RESOLVED.Thought to be 2/2 demand.Trops have trended down and we stopped checking on 12/27/2017. * Appreciate cardiology recs CAD: Chronic and stable * Continue Aspirin * Continue Statin * Continue Clopidogrel Heme/Onc: Anemia: Hemoglobin 8.9. Seems to be around his baseline. Chronic and stable. * We'll type and cross * Transfusion as necessary Metabolic: Stable Alimentary: Dialysis diet Nephro: ESRD: * Dialysis tomororw * Continue sevelemer DVT prophylaxis Problem List: 1. Renal failure 2. Sepsis Pain Ratin Tomorrow's Labs & Rationales: cbc icu Plan DVT/Prophylaxis: Saul Toscano MD 12/29/17 0933: Attending MD Review Statement Attending Sign Off Attending Cosign Statement: I have: examined this patient, reviewed aval EMR data, personally reviewd images, discussd w/resident/PA/[employer]I [employer] MECH[employer]IC, discussed mgmt plan w/whit, discussed mgmt plan w/CM, discussed mgmt plan w/pt, agreed w/resident/PA/[employer] MECH[employer]IC, amended to note. Other Findings: Salu Evans M.D. have examined this patient, reviewed available EMR data, personally reviewed images, discussed with resident/PA/[employer] LIFT MECHANIC, discussed management plan with housestaff and nursing staff, discussed managment plan all of healthcare providers, discussed management plan with patient and/or family, agreed with resident/PA/[employer] LIFT MECHANIC. The past history and parts of the chart have been autopopulated. Impression 57 year old man * fever, unclear source, can be soft tissue infection, recent endocarditis tx * hypotension is relative and has a hx of low bp at baseline * ESRD on HD Plan -nephrology, cardiology, ID, vascular appreciated -cont abx, f/u vancomycin levels -HD per nephrology -f/u all cx, s/p aspiration of lesion at right bka stump -monitor hemodynamics -eventual YULIA maybe necessary DVT prophylaxis at all times TTS 35 min
[2017-12-29 08:00] VITALS: BP 92/50
--- NOTE | 2017-12-29 08:35 | PN- Vascular Surgery ---
Surgical Brief Attending Note Brief Attending Note: VASCULAR ATTENDING NOTE: Pt. seen for f/u. Stable LE exam. Await culture results from I & D prior to final decision regarding further proximal debridement or amputation. ? 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 1.) Cont. care per primary team/ID 2.) F/u cultures 3.) Cardiology eval. for possible YULIA 4.) Will follow
--- NOTE | 2017-12-29 09:03 | PN- Nephrology ---
Assessment/Plan Nephrology Assessment: BP still running on low side but normally only around 90-100 systolic. Has some edema so not volume depleted. Suggestion: No dialysis need. Continue and try and wean pressors. Subjective Subjective: Feels well today but still on pressors. Objective Vital Signs and I&Os Vital Signs Date Time Temp Pulse Resp B/P B/P Pulse O2 O2 Flow FiO2 Mean Ox Delivery Rate 12/29 0536 73 97 12/29 0400 97 Room Air Room Air 12/29 0331 71 97 12/29 0115 77 99 12/29 0000 97 Room Air Room Air 12/29 0000 96.9 76 22 100/50 97 CPAP Room Air 12/28 2241 80 96 12/28 2000 95 Room Air Room Air 12/28 1600 94 Room Air Room Air 12/28 1600 98.7 86 18 100/60 98 Room Air Room Air 12/28 1200 97 Room Air Room Air Intake & Output 12/29 1600 12/29 0400 12/28 1600 12/28 0400 12/27 1600 12/27 0400 Intake Total 228 263 973 538 8559 3200 Output Total 0 0 3000 0 0 0 Balance 228 263 -2475 301 1404 3200 Intake, IV 228 63 525 61 304 3000 Intake, Oral 200 0 240 1100 200 Number 0 0 0 0 0 Bowel Movements Output, 3000 Dialysate Output, Urine 0 0 0 0 0 Patient 207 lb 214 lb Weight Weight Bed scale Bed scale Measurement Method Physical Exam: NAD VS as above Lungs: clear CV: no rub Abd: non-tender Exts: trace edema Neuro: A&O Current Medications: Current Medications Sig/Bobo Start time Last Medication Dose Route Stop Time Status Admin Acetaminophen 650 MG Q4P PRN 12/26 2100 AC 12/26 PO 2326 Aspirin Buffered 81 MG DAILY 12/27 1000 AC 12/29 PO 0826 Atorvastatin Calcium 10 MG 1700 12/27 1700 AC 12/28 PO 173 Cinacalcet 30 MG 1700 12/27 1700 AC 12/28 PO 173 Clopidogrel Bisulfate 75 MG DAILY 12/27 1000 AC 12/29 PO 0826 Cyanocobalamin 1,000 MCG DAILY 12/27 1000 AC 12/29 PO 0826 Docusate Sodium 100 MG DAILY 12/27 1000 AC 12/29 PO 0826 Epoetin Jaron 3,000 UNIT DAILY NEEDED PRN 12/28 0700 AC 12/28 IV 0900 Epoetin Jaron 2,000 UNIT DAILY NEEDED PRN 12/28 0700 AC 12/28 IV 0900 Heparin Sodium 25,000 UNIT Q24H 12/28 2014 AC 12/28 (Porcine) IV 2134 Sodium Chloride 500 ML Lidocaine 1 ML .STK-MED ONE 12/28 1454 DC ID 12/28 1455 Lidocaine/Prilocaine 1 GAVI DAILY PRN 12/28 0700 AC 12/28 TOP 0900 Multivitamins 1 TAB DAILY 12/27 1000 AC 12/29 PO 0826 Norepinephrine 8 MG Q24H 12/27 0115 AC 12/28 Sodium Chloride 250 ML IV 0258 Sevelamer Carbonate 2,400 MG WM 12/27 1200 AC 12/29 PO 0826 Vancomycin HCl 750 MG ONCE ONE 12/28 1100 DC 12/28 Sodium Chloride 250 ML IV 12/28 1159 1200 Vancomycin HCl 625 MG ONCE ONE 12/28 1030 CAN IV 12/28 1031 Results Pertinent Lab Results: Laboratory Tests 12/29 12/28 12/28 0413 1353 0815 Chemistry Sodium (137 - 145 mmol/L) 141 138 Potassium (3.5 - 5.1 mmol/L) 4.0 4.8 Chloride (98 - 107 mmol/L) 102 105 Carbon Dioxide (22 - 30 mmol/L) 25 18 L Anion Gap (5 - 16) 14 15 BUN (9 - 20 mg/dL) 32 H 50 H Creatinine (0.7 - 1.2 mg/dL) 4.6 H 6.1 *H Estimated GFR (>60 ml/min) 13 L 10 L BUN/Creatinine Ratio (7 - 25 %) 8.2 Glucose (65 - 99 mg/dL) 103 H Calcium (8.4 - 10.2 mg/dL) 8.2 L 8.7 Phosphorus (2.5 - 4.5 mg/dL) 3.2 4.2 Magnesium (1.6 - 2.3 mg/dL) 2.0 Total Bilirubin (0.2 - 1.3 mg/dL) 0.6 AST (17 - 59 U/L) 12 L ALT (21 - 72 U/L) 21 Albumin (3.5 - 5.0 g/dL) 3.0 L Coagulation APTT (25 - 37 SEC) 36 Hematology CBC w Diff NO MAN DIFF REQ WBC (4.8 - 10.8 /CUMM) 5.4 RBC (4.70 - 6.10 /CUMM) 2.92 L Hgb (14.0 - 18.0 G/DL) 8.9 L Hct (42 - 52 %) 27.1 L MCV (80.0 - 94.0 FL) 93.0 MCH (27.0 - 31.0 PG) 30.4 MCHC (33.0 - 37.0 G/DL) 32.6 L RDW (11.5 - 14.5 %) 15.5 H Plt Count (130 - 400 /CUMM) ND MPV (7.4 - 10.4 FL) 11.1 H Gran % (42.2 - 75.2 %) 65.0 Lymphocytes % (20.5 - 51.1 %) 24.3 Monocytes % (1.7 - 9.3 %) 8.2 Eosinophils % (0 - 5 %) 1.9 Basophils % (0.0 - 2.0 %) 0.6 Absolute Granulocytes (1.4 - 6.5 /CUMM) 3.5 Absolute Lymphocytes (1.2 - 3.4 /CUMM) 1.3 Absolute Monocytes (0.10 - 0.60 /CUMM) 0.4 Absolute Eosinophils (0.0 - 0.7 /CUMM) 0.1 Absolute Basophils (0.0 - 0.2 /CUMM) 0 Other Body Source Fluid WBC Cancelled Fld Total RBCs Counted Cancelled 12/28 12/27 12/27 0815 1740 1200 Chemistry Sodium (137 - 145 mmol/L) 137 Potassium (3.5 - 5.1 mmol/L) 4.7 Chloride (98 - 107 mmol/L) 104 Carbon Dioxide (22 - 30 mmol/L) 18 L Anion Gap (5 - 16) 15 BUN (9 - 20 mg/dL) 50 H Creatinine (0.7 - 1.2 mg/dL) 6.1 *H Estimated GFR (>60 ml/min) 10 L Glucose (65 - 99 mg/dL) 114 H Calcium (8.4 - 10.2 mg/dL) 8.6 Phosphorus (2.5 - 4.5 mg/dL) 4.2 Magnesium (1.6 - 2.3 mg/dL) 2.2 Total Bilirubin (0.2 - 1.3 mg/dL) 0.4 AST (17 - 59 U/L) 15 L ALT (21 - 72 U/L) 18 L Troponin I (<0.11 ng/ml) 0.14 *H 0.15 *H Albumin (3.5 - 5.0 g/dL) 2.9 L Hematology CBC w Diff NO MAN DIFF REQ WBC (4.8 - 10.8 /CUMM) 5.3 RBC (4.70 - 6.10 /CUMM) 2.93 L Hgb (14.0 - 18.0 G/DL) 8.9 L Hct (42 - 52 %) 27.1 L MCV (80.0 - 94.0 FL) 92.5 MCH (27.0 - 31.0 PG) 30.4 MCHC (33.0 - 37.0 G/DL) 32.9 L RDW (11.5 - 14.5 %) 15.2 H Plt Count (130 - 400 /CUMM) 90 L MPV (7.4 - 10.4 FL) 10.6 H Gran % (42.2 - 75.2 %) 70.8 Lymphocytes % (20.5 - 51.1 %) 17.6 L Monocytes % (1.7 - 9.3 %) 9.8 H Eosinophils % (0 - 5 %) 1.3 Basophils % (0.0 - 2.0 %) 0.5 Absolute Granulocytes (1.4 - 6.5 /CUMM) 3.7 Absolute Lymphocytes (1.2 - 3.4 /CUMM) 0.9 L Absolute Monocytes (0.10 - 0.60 /CUMM) 0.5 Absolute Eosinophils (0.0 - 0.7 /CUMM) 0.1 Absolute Basophils (0.0 - 0.2 /CUMM) 0 Toxicology Random Vancomycin (ug/ml) 14.2 12/27 12/27 0530 0530 Chemistry Sodium (137 - 145 mmol/L) 142 Potassium (3.5 - 5.1 mmol/L) 4.4 Chloride (98 - 107 mmol/L) 106 Carbon Dioxide (22 - 30 mmol/L) 22 Anion Gap (5 - 16) 14 BUN (9 - 20 mg/dL) 29 H Creatinine (0.7 - 1.2 mg/dL) 4.3 H Estimated GFR (>60 ml/min) 14 L Glucose (65 - 99 mg/dL) 125 H Calcium (8.4 - 10.2 mg/dL) 8.7 Phosphorus (2.5 - 4.5 mg/dL) 4.0 Magnesium (1.6 - 2.3 mg/dL) 2.1 Total Bilirubin (0.2 - 1.3 mg/dL) 0.5 AST (17 - 59 U/L) 21 ALT (21 - 72 U/L) 17 L Troponin I (<0.11 ng/ml) 0.23 *H Albumin (3.5 - 5.0 g/dL) 3.0 L Coagulation Fibrinogen Activity (200 - 393 MG/DL) 417 H D-Dimer High Sensitivty (0 - 243 ng/ml) 1182 H Hematology CBC w Diff MAN DIFF ORDERED WBC (4.8 - 10.8 /CUMM) 6.2 RBC (4.70 - 6.10 /CUMM) 2.99 L Hgb (14.0 - 18.0 G/DL) 9.2 L Hct (42 - 52 %) 27.9 L MCV (80.0 - 94.0 FL) 93.3 MCH (27.0 - 31.0 PG) 30.8 MCHC (33.0 - 37.0 G/DL) 33.1 RDW (11.5 - 14.5 %) 15.4 H Plt Count (130 - 400 /CUMM) 90 L MPV (7.4 - 10.4 FL) 10.0 Gran % (42.2 - 75.2 %) 87.0 H Lymphocytes % (20.5 - 51.1 %) 6.3 L Monocytes % (1.7 - 9.3 %) 6.2 Eosinophils % (0 - 5 %) 0 Basophils % (0.0 - 2.0 %) 0.5 Absolute Granulocytes (1.4 - 6.5 /CUMM) 5.4 Segmented Neutrophils (42.2 - 75.2 %) 79 H Band Neutrophils (0.0 - 5.0 %) 9 H Absolute Lymphocytes (1.2 - 3.4 /CUMM) 0.4 L Lymphocytes (20.5 - 51.1 %) 8 L Monocytes (1.7 - 9.3 %) 4 Absolute Monocytes (0.10 - 0.60 /CUMM) 0.4 Absolute Eosinophils (0.0 - 0.7 /CUMM) 0 Absolute Basophils (0.0 - 0.2 /CUMM) 0 Platelet Estimate (ADEQUATE) DECREASED Hypochromic-Microcytic 1+ Poikilocytosis 1+ Ovalocytes 1+ 12/27 12/26 12/26 0140 2319 2021 Chemistry Potassium (3.5 - 5.1 mmol/L) 4.6 Lactic Acid (0.7 - 2.1 mmol/L) 1.0 Magnesium (1.6 - 2.3 mg/dL) 1.4 L Troponin I (<0.11 ng/ml) 0.15 *H Hematology CBC w Diff MAN DIFF ORDERED WBC (4.8 - 10.8 /CUMM) 4.4 L RBC (4.70 - 6.10 /CUMM) 2.88 L Hgb (14.0 - 18.0 G/DL) 8.8 L Hct (42 - 52 %) 26.6 L MCV (80.0 - 94.0 FL) 92.4 MCH (27.0 - 31.0 PG) 30.6 MCHC (33.0 - 37.0 G/DL) 33.1 RDW (11.5 - 14.5 %) 15.3 H Plt Count (130 - 400 /CUMM) 68 L MPV (7.4 - 10.4 FL) 9.9 Gran % (42.2 - 75.2 %) 85.8 H Lymphocytes % (20.5 - 51.1 %) 7.9 L Monocytes % (1.7 - 9.3 %) 6.1 Eosinophils % (0 - 5 %) 0 Basophils % (0.0 - 2.0 %) 0.2 Absolute Granulocytes (1.4 - 6.5 /CUMM) 3.7 Segmented Neutrophils (42.2 - 75.2 %) 76 H Band Neutrophils (0.0 - 5.0 %) 13 H Absolute Lymphocytes (1.2 - 3.4 /CUMM) 0.3 L Lymphocytes (20.5 - 51.1 %) 6 L Monocytes (1.7 - 9.3 %) 5 Absolute Monocytes (0.10 - 0.60 /CUMM) 0.3 Absolute Eosinophils (0.0 - 0.7 /CUMM) 0 Absolute Basophils (0.0 - 0.2 /CUMM) 0 Platelet Estimate (ADEQUATE) DECREASED Hypochromic-Microcytic 2+ Basophilic Stippling 1+ Ovalocytes 1+ ESR Westergren (0 - 10 MM) 35 H 12/26 12/26 12/26 1542 1525 1509 Chemistry Sodium (137 - 145 mmol/L) 143 Potassium (3.5 - 5.1 mmol/L) 3.4 L Chloride (98 - 107 mmol/L) 103 Carbon Dioxide (22 - 30 mmol/L) 24 Anion Gap (5 - 16) 16 BUN (9 - 20 mg/dL) 21 H Creatinine (0.7 - 1.2 mg/dL) 3.5 H Estimated GFR (>60 ml/min) 18 L BUN/Creatinine Ratio (7 - 25 %) 6.0 L Glucose (65 - 99 mg/dL) 133 H Hemoglobin A1c (4.2 - 5.8 %) 4.9 Lactic Acid (0.7 - 2.1 mmol/L) 1.4 Calcium (8.4 - 10.2 mg/dL) 8.8 Total Bilirubin (0.2 - 1.3 mg/dL) 0.6 AST (17 - 59 U/L) 13 L ALT (21 - 72 U/L) 18 L Alkaline Phosphatase (< 127 U/L) 121 Troponin I (<0.11 ng/ml) 0.05 [id number] Pept (<125 pg/mL) 52417 H Total Protein (6.3 - 8.2 g/dL) 6.9 Albumin (3.5 - 5.0 g/dL) 3.9 Globulin (1.9 - 4.2 gm/dL) 3.0 Albumin/Globulin Ratio (1.1 - 2.2 %) 1.3 TSH (0.270 - 4.200 uIU/mL) 0.801 Thyroxine (T4) (4.5 - 10.9 ug/dL) 5.2 Prolactin (3.7 - 17.9 ng/mL) 29.3 H Coagulation PT (9.4 - 12.5 SEC) 11.9 INR (0.90 - 1.17) 1.13 APTT (25 - 37 SEC) 28 Hematology CBC w Diff NO MAN DIFF REQ WBC (4.8 - 10.8 /CUMM) 4.0 L RBC (4.70 - 6.10 /CUMM) 3.31 L Hgb (14.0 - 18.0 G/DL) 10.2 L Hct (42 - 52 %) 30.6 L MCV (80.0 - 94.0 FL) 92.5 MCH (27.0 - 31.0 PG) 30.8 MCHC (33.0 - 37.0 G/DL) 33.3 RDW (11.5 - 14.5 %) 15.2 H Plt Count (130 - 400 /CUMM) 83 L MPV (7.4 - 10.4 FL) 9.6 Gran % (42.2 - 75.2 %) 91.7 H Lymphocytes % (20.5 - 51.1 %) 3.7 L Monocytes % (1.7 - 9.3 %) 3.7 Eosinophils % (0 - 5 %) 0.5 Basophils % (0.0 - 2.0 %) 0.4 Absolute Granulocytes (1.4 - 6.5 /CUMM) 3.7 Absolute Lymphocytes (1.2 - 3.4 /CUMM) 0.1 L Absolute Monocytes (0.10 - 0.60 /CUMM) 0.1 Absolute Eosinophils (0.0 - 0.7 /CUMM) 0 Absolute Basophils (0.0 - 0.2 /CUMM) 0 Serology Virus Culture Pending Urines Urine Color Cancelled Urine Clarity Cancelled Urine pH Cancelled Ur Specific Datil Cancelled Urine Protein Cancelled Urine Ketones Cancelled Urine Nitrite Cancelled Urine Bilirubin Cancelled Urine Urobilinogen Cancelled Ur Leukocyte Esterase Cancelled Ur Microscopic Cancelled Urine Hemoglobin Cancelled Urine Glucose Cancelled
--- NOTE | 2017-12-29 10:46 | PN- Infect Dx ---
Subjective Subjective: Afebrile without complaints. His blood pressure remains borderline on low-dose pressors. Objective Last 24 Hrs of Vital Signs/I&O Vital Signs Date Time Temp Pulse Resp B/P B/P Pulse O2 O2 Flow FiO2 Mean Ox Delivery Rate 12/29 0536 73 97 12/29 0400 97 Room Air Room Air 12/29 0331 71 97 12/29 0115 77 99 12/29 0000 97 Room Air Room Air 12/29 0000 96.9 76 22 100/50 97 CPAP Room Air 12/28 2241 80 96 12/28 2000 95 Room Air Room Air 12/28 1600 94 Room Air Room Air 12/28 1600 98.7 86 18 100/60 98 Room Air Room Air 12/28 1200 97 Room Air Room Air Intake & Output 12/29 1600 12/29 0800 12/29 0000 Intake Total 228 263 Output Total 0 0 Balance 228 263 Intake, IV 228 63 Intake, Oral 200 Number 0 0 Bowel Movements Output, Urine 0 0 Physical Exam Other Physical Findings: He appears comfortable in no acute distress Lungs are clear Heart regular rhythm with no murmur Extremities right BKA stump with stocking intact Results Last 24 Hours of Lab Results: Laboratory Tests 12/29 12/28 0413 1353 Chemistry Sodium (137 - 145 mmol/L) 141 Potassium (3.5 - 5.1 mmol/L) 4.0 Chloride (98 - 107 mmol/L) 102 Carbon Dioxide (22 - 30 mmol/L) 25 Anion Gap (5 - 16) 14 BUN (9 - 20 mg/dL) 32 H Creatinine (0.7 - 1.2 mg/dL) 4.6 H Estimated GFR (>60 ml/min) 13 L Glucose (65 - 99 mg/dL) 103 H Calcium (8.4 - 10.2 mg/dL) 8.2 L Phosphorus (2.5 - 4.5 mg/dL) 3.2 Magnesium (1.6 - 2.3 mg/dL) 2.0 Total Bilirubin (0.2 - 1.3 mg/dL) 0.6 AST (17 - 59 U/L) 12 L ALT (21 - 72 U/L) 21 Albumin (3.5 - 5.0 g/dL) 3.0 L Coagulation APTT (25 - 37 SEC) 36 Hematology CBC w Diff NO MAN DIFF REQ WBC (4.8 - 10.8 /CUMM) 5.4 RBC (4.70 - 6.10 /CUMM) 2.92 L Hgb (14.0 - 18.0 G/DL) 8.9 L Hct (42 - 52 %) 27.1 L MCV (80.0 - 94.0 FL) 93.0 MCH (27.0 - 31.0 PG) 30.4 MCHC (33.0 - 37.0 G/DL) 32.6 L RDW (11.5 - 14.5 %) 15.5 H Plt Count (130 - 400 /CUMM) ND MPV (7.4 - 10.4 FL) 11.1 H Gran % (42.2 - 75.2 %) 65.0 Lymphocytes % (20.5 - 51.1 %) 24.3 Monocytes % (1.7 - 9.3 %) 8.2 Eosinophils % (0 - 5 %) 1.9 Basophils % (0.0 - 2.0 %) 0.6 Absolute Granulocytes (1.4 - 6.5 /CUMM) 3.5 Absolute Lymphocytes (1.2 - 3.4 /CUMM) 1.3 Absolute Monocytes (0.10 - 0.60 /CUMM) 0.4 Absolute Eosinophils (0.0 - 0.7 /CUMM) 0.1 Absolute Basophils (0.0 - 0.2 /CUMM) 0 Other Body Source Fluid WBC Cancelled Fld Total RBCs Counted Cancelled Last 24 Hours of Brendan Results: Blood cultures December 26 positive for Staph aureus sensitive to Oxacillin Blood cultures December 28 negative so far Right BKA stump aspiration December 28 negative Assessment/Plan ID Impression: Stable, though remains on low-dose pressors, with temperatures and white blood cell count remaining normal, on Vancomycin, Day 3 of treatment for Staph aureus sepsis, most likely secondary to an infected right BKA stump, though the aspiration yesterday yielded minimal if any fluid, and the culture is so far negative. Have discussed with Cardiology, who will plan to do a YULIA, as the transthoracic echocardiogram was nonrevealing. Have discussed with Vascular surgery, who will pursue a right AKA as long as his YULIA is negative. As the Staph aureus is sensitive to Oxacillin his antibiotics can be adjusted. Suggestion: 1. Would pursue YULIA 2. If YULIA negative would proceed with right AKA per Vascular Surgery 3. Discontinue Vancomycin 4. Begin Cefazolin 2 grams IV after each dialysis
--- NOTE | 2017-12-29 14:53 | PN- Cardiology ---
Subjective Subjective: Feels well. Pressors recently stopped. Objective Vital Signs and I&Os Vital Signs Date Time Temp Pulse Resp B/P B/P Pulse O2 O2 Flow FiO2 Mean Ox Delivery Rate 12/29 1200 95 Room Air Room Air 12/29 0845 78 97/55 12/29 0800 94 Room Air Room Air 12/29 0800 97.3 76 18 92/50 94 Room Air Room Air 12/29 0536 73 97 12/29 0400 97 Room Air Room Air 12/29 0331 71 97 12/29 0115 77 99 12/29 0000 97 Room Air Room Air 12/29 0000 96.9 76 22 100/50 97 CPAP Room Air 12/28 2241 80 96 12/28 2000 95 Room Air Room Air 12/28 1600 94 Room Air Room Air 12/28 1600 98.7 86 18 100/60 98 Room Air Room Air Intake & Output 12/29 1600 12/29 0800 12/29 0000 12/28 1600 12/28 0800 12/28 0000 Intake Total 228 263 479 46 301 Output Total 0 0 3000 0 Balance 228 263 -2521 46 301 Intake, IV 228 63 479 46 61 Intake, Oral 200 0 0 240 Number 0 0 0 Bowel Movements Output, 3000 Dialysate Output, Urine 0 0 0 Patient 207 lb 207 lb 216 lb Weight Weight Bed scale Bed scale Bed scale Measurement Method Physical Exam: General: no distress, alert Eyes: No obvious scleral icterus. HEENT: No jugular venous distention or abnormal jugular venous pulsations. Cardiovascular: Normal intensity S1/S2. Regular Respiratory: no rales/ronchi Abdomen: Soft, nontender with no guarding or rebound tenderness. Musculoskeletal: No clubbing or cyanosis noted; prior BKA without pain/erythema Skin: Warm Neurologic: normal speech Current Medications: Current Medications Sig/Bobo Start time Last Medication Dose Route Stop Time Status Admin Acetaminophen 650 MG Q4P PRN 12/26 2100 AC 12/26 PO 2326 Aspirin Buffered 81 MG DAILY 12/27 1000 AC 12/29 PO 08 Atorvastatin Calcium 10 MG 1700 12/27 1700 AC 12/28 PO 173 Cinacalcet 30 MG 1700 12/27 1700 AC 12/28 PO 1736 Clopidogrel Bisulfate 75 MG DAILY 12/27 1000 AC 12/29 PO 0826 Cyanocobalamin 1,000 MCG DAILY 12/27 1000 AC 12/29 PO 0826 Docusate Sodium 100 MG DAILY 12/27 1000 AC 12/29 PO 0826 Epoetin Jaron 3,000 UNIT DAILY NEEDED PRN 12/28 0700 AC 12/28 IV 0900 Epoetin Jaron 2,000 UNIT DAILY NEEDED PRN 12/28 0700 AC 12/28 IV 0900 Heparin Sodium 5,000 UNIT .STK-MED ONE 12/29 0629 DC (Porcine) IV 12/29 06 Heparin Sodium 25,000 UNIT Q24H 12/28 2014 AC 12/28 (Porcine) IV 213 Sodium Chloride 500 ML Lidocaine 1 ML .STK-MED ONE 12/28 1454 DC ID 12/28 1455 Lidocaine/Prilocaine 1 GAVI DAILY PRN 12/28 0700 AC 12/28 TOP 0900 Multivitamins 1 TAB DAILY 12/27 1000 AC 12/29 PO 0826 Norepinephrine 8 MG Q24H 12/27 0115 AC 12/29 Sodium Chloride 250 ML IV 0845 Sevelamer Carbonate 2,400 MG WM 12/27 1200 AC 12/29 PO 1159 Results Last 48 Hrs of Labs/Mics: Laboratory Tests 12/29/17 0413: Anion Gap 14, Estimated GFR 13 L, Glucose 103 H, Calcium 8.2 L, Phosphorus 3.2, Magnesium 2.0, Total Bilirubin 0.6, AST 12 L, ALT 21, Albumin 3.0 L, APTT 36, CBC w Diff NO MAN DIFF REQ, RBC 2.92 L, MCV 93.0, MCH 30.4, MCHC 32.6 L, RDW 15.5 H, Plt Count ND, MPV 11.1 H, Gran % 65.0, Lymphocytes % 24.3, Monocytes % 8.2, Eosinophils % 1.9, Basophils % 0.6, Absolute Granulocytes 3.5, Absolute Lymphocytes 1.3, Absolute Monocytes 0.4, Absolute Eosinophils 0.1, Absolute Basophils 0 12/28/17 1353: Fluid WBC Cancelled, Fld Total RBCs Counted Cancelled 12/28/17 0815: Anion Gap 15, Estimated GFR 10 L, BUN/Creatinine Ratio 8.2, Calcium 8.7, Phosphorus 4.2 12/28/17 0815: Anion Gap 15, Estimated GFR 10 L, Glucose 114 H, Calcium 8.6, Phosphorus 4.2, Magnesium 2.2, Total Bilirubin 0.4, AST 15 L, ALT 18 L, Albumin 2.9 L, CBC w Diff NO MAN DIFF REQ, RBC 2.93 L, MCV 92.5, MCH 30.4, MCHC 32.9 L, RDW 15.2 H , MPV 10.6 H, Gran % 70.8, Lymphocytes % 17.6 L, Monocytes % 9.8 H, Eosinophils % 1.3, Basophils % 0.5, Absolute Granulocytes 3.7, Absolute Lymphocytes 0.9 L, Absolute Monocytes 0.5, Absolute Eosinophils 0.1, Absolute Basophils 0, Random Vancomycin 14.2 12/27/17 1740: Troponin I 0.14 *H Recent Imaging Studies: Telemetry tracings were personally reviewed and currently shows sinus rhythm Assessment/Plan Assessment/Plan 1. Coronary disease by history status post coronary bypass surgery 2006 with complex PCI to the left main into the circumflex September 2017 with normal LV function 2. Hx of Hypertension 3. Peripheral arterial disease status post prior amputation 4. End-stage renal disease on dialysis 5. 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 Diabetes 7. Fever and chills with hypotension most likely secondary to sepsis. 8. Elevated troponins, minimal, not due to ACS 9. Intermittent atrial fibrillation possibly due to sepsis The patient feels well and pressors were recently stopped. He is now back in sinus rhythm. Would continue on intravenous heparin drip for now. If blood pressure continues to be stable we may consider initiation of a low-dose beta debbi at some point but would hold off for now. If he remains hemodynamically stable we will likely proceed with transesophageal echocardiogram; this has been tentatively scheduled for Tuesday. Rocco Jimenez MD [facility] Continue telemetry? Yes
[2017-12-29 15:42] LABS: PTT 45 SEC (25-37)
[2017-12-29 16:00] VITALS: BP 92/60
[2017-12-29 23:03] LABS: PTT 56 SEC (25-37)
[2017-12-30] VITALS: BP 88/50
[2017-12-30 06:00] LABS: ABSOLUTE BASOPHIL COUNT 0 /CUMM (0.0-0.2); ABSOLUTE EOSINOPHIL COUNT 0.1 /CUMM (0.0-0.7); ABSOLUTE GRANULOCYTE CT 2.7 /CUMM (1.4-6.5); ABSOLUTE LYMPH COUNT 1.4 /CUMM (1.2-3.4); ABSOLUTE MONOCYTE COUNT 0.3 /CUMM (0.10-0.60); BASOPHIL % 0.7 % (0.0-2.0); GRANULOCYTE % 59.1 % (42.2-75.2); HEMATOCRIT 25.2 % (42-52); MEAN CORPUSCULAR HGB 30.1 PG (27.0-31.0); MEAN CORPUSCULAR HGB CONC 32.6 G/DL (33.0-37.0); MEAN CORPUSCULAR VOLUME 92.2 FL (80.0-94.0); MEAN PLATELET VOLUME 9.6 FL (7.4-10.4); PLATELET COUNT 105 /CUMM (130-400); RBC DISTRIBUTION WIDTH 15.1 % (11.5-14.5); RED BLOOD CELL CT 2.73 /CUMM (4.70-6.10); WHITE BLOOD CELL COUNT 4.6 /CUMM (4.8-10.8)
[2017-12-30 06:12] LABS: PTT 67 SEC (25-37)
--- NOTE | 2017-12-30 07:51 | PN- Resident CRCU ---
Laron MARTINEZ,Jerzy 12/30/17 0751: Subjective HPI/CRCU Issues: Saw patient at bedside this a.m. No acute overnight events. No complaints. He was getting dialysis when I saw him this AM. He is still on 1 g of levophed as when he was asleep his blood pressure tended to drop into the 70s systolic. ICU problems: Hypotension ESRD Known history of MSSA mitral valve endocarditis status post antibiotic treatment. 24 Hour Events: Vitals: Temperature between 97.1 and 97.5, heart rate between 68-76, respiratory rate between 17 and 23, blood pressure between 65/40 and 109/53, satting between 93-97% Last fingersticks between 268, 137, 124. Total in: 7215. Total out: 3000 Objective Vital Signs & I&O Last 8 Hrs of Vitals and I&O: -- Exam General Appearance: well developed/nourished, no apparent distress, alert, awake Head: atraumatic, normal appearance Neck: normal inspection Respiratory: normal breath sounds, quiet respiration, lungs clear Cardiovascular: regular rate/rhythm, systolic murmur Gastrointestinal: soft, non-tender Extremities: r. bka, R. TLC in place. dressing clean and intact Current Medications: Current Medications Sig/Bobo Start time Last Medication Dose Route Stop Time Status Admin Acetaminophen 650 MG Q4P PRN 12/26 2100 AC 12/26 PO 2326 Aspirin Buffered 81 MG DAILY 12/27 1000 AC 12/30 PO 1153 Atorvastatin Calcium 10 MG 1700 12/27 1700 AC 12/29 PO 1626 Cefazolin Sodium 2 GM ONCE ONE 12/30 1015 DC 12/30 N/A 1 UNIT IV 12/30 1044 1154 Cinacalcet 30 MG 1700 12/27 1700 AC 12/29 PO 1626 Clopidogrel Bisulfate 75 MG DAILY 12/27 1000 AC 12/30 PO 1153 Cyanocobalamin 1,000 MCG DAILY 12/27 1000 AC 12/30 PO 1153 Docusate Sodium 100 MG DAILY 12/27 1000 AC 12/30 PO 1153 Epoetin Jaron 3,000 UNIT DAILY NEEDED PRN 12/28 0700 AC 12/28 IV 0900 Epoetin Jaron 2,000 UNIT DAILY NEEDED PRN 12/28 0700 AC 12/28 IV 0900 Heparin Sodium 5,000 UNIT .STK-MED ONE 12/30 0006 DC (Porcine) IV 12/30 0007 Heparin Sodium 3,800 UNIT ONCE ONE 12/29 1700 DC 12/29 (Porcine) IV 12/29 1701 1700 Heparin Sodium 5,000 UNIT .STK-MED ONE 12/29 1641 DC (Porcine) IV 12/29 1642 Heparin Sodium 25,000 UNIT Q24H 12/28 2014 AC 12/30 (Porcine) IV 0616 Sodium Chloride 500 ML Lidocaine/Prilocaine 1 GAVI DAILY PRN 12/28 0700 AC 12/28 TOP 0900 Multivitamins 1 TAB DAILY 12/27 1000 AC 12/30 PO 1153 Norepinephrine 8 MG Q7H 12/29 1500 AC Sodium Chloride 250 ML IV Norepinephrine 8 MG Q24H 12/27 0115 DC 12/29 Sodium Chloride 250 ML IV 12/29 1515 0845 Sevelamer Carbonate 2,400 MG WM 12/27 1200 AC 12/30 PO 1153 Impression/Plan Impression/Problem List Impression: This is a 57-year-old gentleman w/ PMH of CAD recent PCI with drug-eluting stent in . 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 He comes in for CC of malaise, lethargy and hypotension noted during routine dialysis appointment. In ED pt was found to be febrile, tachycardic, and hypotensive with inappropriate response to 3 L IVF. Pt dx with septic shock due to unknown source and started on broad spectrum abx and pressors thru R. fem central line. He has intermittently been in and out of afib and started on Heparin drip. PLAN Respiratory: Stable. Pt on RA vs 2L O2 and satting well. Infectious disease: Septic shock secondary to unknown source: Differential includes , osteoporosis/ BKA stump infection, endocarditis, healthcare associated pneumonia given CAT scan findings. Patient has history of C. difficile but is not complaining of diarrhea or abdominal pain at this time. BCX x2 + MSSA; second set so far negative. TTE does not comment on mitral vegetation. There is a YULIA tentatively scheduled on Tuesday as is possible OR intervention for AKA. Initially pt started on Ceftaz and Vanco, then narrowed to Vanco and today will change abx to 2g Cefazolin after dialysis. Aspirate of collection of r. knee so far negative. * Holding his home hypertensive medication * Appreciate infectious disease recommendations * Continue to monitor blood cultures * Pending other cultures * Start Cefazolin 2g daily after dialysis * YULIA tentatively scheduled for Tuesday. * Possible AKA scheduled for Tuesday * Note that pt has R. TLC and was initially bacteremic but he is currently running pressors through that line. * R. femoral TLC needs to come out given MSSA bacteremia x2. Will attempt other central access. Cardiovascular: Atrial fibrillation: Pt paroxysmal afib and is itnermittently going in and out of a. fib. He is having similar T-wave changes that were seen previously. Pt started on Heparin on 12/28/2017 * Monitor on tele * Appreciate cardio recs regarding anticoagulation * Con't Heparin drip; Hypotension: Patient has right femoral triple-lumen catheter inserted on 2017. He is currently on 2.5 mics of levo fed double concentrated. Will attempt to wean him off today. Given that his nml BP is around 90s systolic will titrate his MAP to 60. * Hold Lopressor * Hold lisinopril * Levophed as necessary. As soon as it is apparent he no longer requires pressors will remove TLC. Elevated troponin: RESOLVED.Thought to be 2/2 demand.Trops have trended down and we stopped checking on 12/27/2017. Peak troponin .23 on Dec 27, 2017. * Appreciate cardiology recs CAD: Chronic and stable * Continue Aspirin * Continue Statin * Continue Clopidogrel Heme/Onc: Anemia: Hemoglobin 8.9. Seems to be around his baseline. Chronic and stable. * We'll type and cross * Transfusion as necessary Metabolic: Stable Alimentary: Dialysis diet Nephro: ESRD: * Dialysis tomororw * Continue sevelemer DVT prophylaxis Problem List: 1. Osteomyelitis Pain Ratin Tomorrow's Labs & Rationales: icu cbc Plan DVT/Prophylaxis: Saul Toscano MD 12/30/17 1247: Attending MD Review Statement Attending Sign Off Attending Cosign Statement: I have: examined this patient, reviewed avalbl EMR data, personally reviewd images, discussd w/resident/PA/DOBBY LOOM WEAVER, discussed mgmt plan w/whit, discussed mgmt plan w/CM, discussed mgmt plan w/pt, agreed w/resident/PA/DOBBY LOOM WEAVER, amended to note. Other Findings: ISaul M.D. have examined this patient, reviewed available EMR data, personally reviewed images, discussed with resident/PA/DOBBY LOOM WEAVER, discussed management plan with housestaff and nursing staff, discussed managment plan all of healthcare providers, discussed management plan with patient and/or family, agreed with resident/PA/DOBBY LOOM WEAVER. The past history and parts of the chart have been autopopulated. Impression 57 year old man * fever, unclear source, can be soft tissue infection, recent endocarditis tx * hypotension is relative and has a hx of low bp at baseline, still on pressors * ESRD on HD Plan -titrating pressors -nephrology, cardiology, ID, vascular appreciated -cont abx, f/u vancomycin levels -HD per nephrology -f/u all cx -monitor hemodynamics -eventual YULAI maybe necessary likely Tuesday if stable DVT prophylaxis at all times TTS 35 min
[2017-12-30 08:00] VITALS: BP 90/60
--- NOTE | 2017-12-30 09:56 | PN- Nephrology ---
Assessment/Plan Nephrology Assessment: Stable. YULIA scheduled for Tuesday. Should have dialysis first as won't have been dialyzed for 2 days. Suggestion: UF 3 liters toay. Will schedule for dialysis first thing Tuesday so he can be available for YULIA at 11 AM. Subjective Subjective: Patient undergoing dialysis, still on Levophed at low dose. Objective Vital Signs and I&Os Vital Signs Date Time Temp Pulse Resp B/P B/P Pulse O2 O2 Flow FiO2 Mean Ox Delivery Rate 12/30 0800 98 Room Air 12/30 0800 97.1 78 20 90/60 98 Room Air 12/30 0605 67 99 12/30 0400 97 Room Air 12/30 0346 66 97 12/30 0122 68 97 12/30 0000 97 Room Air 12/30 0000 97.1 71 20 88/50 97 Room Air 12/29 2227 77 96 12/29 1600 96 Room Air Room Air 12/29 1600 97.5 72 22 92/60 95 Room Air Room Air 12/29 1200 95 Room Air Room Air Intake & Output 12/30 1600 12/30 0400 12/29 1600 12/29 0400 12/28 1600 12/28 0400 Intake Total 532 712.8 531 263 525 301 Output Total 1 0 3000 0 Balance 532 712.8 530 263 -2475 301 Intake, IV 332 312.8 531 63 525 61 Intake, Oral 200 400 200 0 240 Number 0 0 0 Bowel Movements Output, 3000 Dialysate Output, Stool 1 Output, Urine 0 0 0 Patient 207 lb 207 lb Weight Weight Bed scale Bed scale Measurement Method Physical Exam: NAD VS as above Lungs: clear CV: no rub Abd: non-tender Exts: trace edema Neuro: A&O Current Medications: Current Medications Sig/Bobo Start time Last Medication Dose Route Stop Time Status Admin Acetaminophen 650 MG Q4P PRN 12/26 2100 AC 12/26 PO 2326 Aspirin Buffered 81 MG DAILY 12/27 1000 AC 12/29 PO 08 Atorvastatin Calcium 10 MG 12/27 1700 AC 12/29 PO 162 Cinacalcet 30 MG 12/27 1700 AC 12/29 PO 162 Clopidogrel Bisulfate 75 MG DAILY 12/27 1000 AC 12/29 PO 08 Cyanocobalamin 1,000 MCG DAILY 12/27 1000 AC 12/29 PO 08 Docusate Sodium 100 MG DAILY 12/27 1000 AC 12/29 PO 0826 Epoetin Jaron 3,000 UNIT DAILY NEEDED PRN 12/28 0700 AC 12/28 IV 0900 Epoetin Jaron 2,000 UNIT DAILY NEEDED PRN 12/28 0700 AC 12/28 IV 0900 Heparin Sodium 5,000 UNIT .STK-MED ONE 12/30 0006 DC (Porcine) IV 12/30 0007 Heparin Sodium 3,800 UNIT ONCE ONE 12/29 1700 DC 12/29 (Porcine) IV 12/29 1701 1700 Heparin Sodium 5,000 UNIT .STK-MED ONE 12/29 1641 DC (Porcine) IV 12/29 1642 Heparin Sodium 25,000 UNIT Q24H 12/28 2015 AC 12/30 (Porcine) IV 0616 Sodium Chloride 500 ML Lidocaine/Prilocaine 1 GAVI DAILY PRN 12/28 0700 AC 12/28 TOP 0900 Multivitamins 1 TAB DAILY 12/27 1000 AC 12/29 PO 0826 Norepinephrine 8 MG Q7H 12/29 1500 AC Sodium Chloride 250 ML IV Norepinephrine 8 MG Q24H 12/27 0115 DC 12/29 Sodium Chloride 250 ML IV 12/29 1515 0845 Sevelamer Carbonate 2,400 MG WM 12/27 1200 AC 12/29 PO 1626 Results Pertinent Lab Results: Laboratory Tests 12/30 12/29 12/29 0550 2222 1245 Chemistry Sodium (137 - 145 mmol/L) 140 Potassium (3.5 - 5.1 mmol/L) 4.1 Chloride (98 - 107 mmol/L) 101 Carbon Dioxide (22 - 30 mmol/L) 25 Anion Gap (5 - 16) 14 BUN (9 - 20 mg/dL) 45 H Creatinine (0.7 - 1.2 mg/dL) 6.2 *H Estimated GFR (>60 ml/min) 9 L Glucose (65 - 99 mg/dL) 122 H Calcium (8.4 - 10.2 mg/dL) 8.2 L Phosphorus (2.5 - 4.5 mg/dL) 3.1 Magnesium (1.6 - 2.3 mg/dL) 2.1 Total Bilirubin (0.2 - 1.3 mg/dL) 0.4 AST (17 - 59 U/L) 10 L ALT (21 - 72 U/L) 23 Albumin (3.5 - 5.0 g/dL) 2.9 L Coagulation APTT (25 - 37 SEC) 67 H 56 H 45 H Hematology CBC w Diff NO MAN DIFF REQ WBC (4.8 - 10.8 /CUMM) 4.6 L RBC (4.70 - 6.10 /CUMM) 2.73 L Hgb (14.0 - 18.0 G/DL) 8.2 L Hct (42 - 52 %) 25.2 L MCV (80.0 - 94.0 FL) 92.2 MCH (27.0 - 31.0 PG) 30.1 MCHC (33.0 - 37.0 G/DL) 32.6 L RDW (11.5 - 14.5 %) 15.1 H Plt Count (130 - 400 /CUMM) 105 L MPV (7.4 - 10.4 FL) 9.6 Gran % (42.2 - 75.2 %) 59.1 Lymphocytes % (20.5 - 51.1 %) 29.7 Monocytes % (1.7 - 9.3 %) 7.5 Eosinophils % (0 - 5 %) 3.0 Basophils % (0.0 - 2.0 %) 0.7 Absolute Granulocytes (1.4 - 6.5 /CUMM) 2.7 Absolute Lymphocytes (1.2 - 3.4 /CUMM) 1.4 Absolute Monocytes (0.10 - 0.60 /CUMM) 0.3 Absolute Eosinophils (0.0 - 0.7 /CUMM) 0.1 Absolute Basophils (0.0 - 0.2 /CUMM) 0 12/29 12/28 12/28 0413 1353 0815 Chemistry Sodium (137 - 145 mmol/L) 141 138 Potassium (3.5 - 5.1 mmol/L) 4.0 4.8 Chloride (98 - 107 mmol/L) 102 105 Carbon Dioxide (22 - 30 mmol/L) 25 18 L Anion Gap (5 - 16) 14 15 BUN (9 - 20 mg/dL) 32 H 50 H Creatinine (0.7 - 1.2 mg/dL) 4.6 H 6.1 *H Estimated GFR (>60 ml/min) 13 L 10 L BUN/Creatinine Ratio (7 - 25 %) 8.2 Glucose (65 - 99 mg/dL) 103 H Calcium (8.4 - 10.2 mg/dL) 8.2 L 8.7 Phosphorus (2.5 - 4.5 mg/dL) 3.2 4.2 Magnesium (1.6 - 2.3 mg/dL) 2.0 Total Bilirubin (0.2 - 1.3 mg/dL) 0.6 AST (17 - 59 U/L) 12 L ALT (21 - 72 U/L) 21 Albumin (3.5 - 5.0 g/dL) 3.0 L Coagulation APTT (25 - 37 SEC) 36 Hematology CBC w Diff NO MAN DIFF REQ WBC (4.8 - 10.8 /CUMM) 5.4 RBC (4.70 - 6.10 /CUMM) 2.92 L Hgb (14.0 - 18.0 G/DL) 8.9 L Hct (42 - 52 %) 27.1 L MCV (80.0 - 94.0 FL) 93.0 MCH (27.0 - 31.0 PG) 30.4 MCHC (33.0 - 37.0 G/DL) 32.6 L RDW (11.5 - 14.5 %) 15.5 H Plt Count (130 - 400 /CUMM) ND MPV (7.4 - 10.4 FL) 11.1 H Gran % (42.2 - 75.2 %) 65.0 Lymphocytes % (20.5 - 51.1 %) 24.3 Monocytes % (1.7 - 9.3 %) 8.2 Eosinophils % (0 - 5 %) 1.9 Basophils % (0.0 - 2.0 %) 0.6 Absolute Granulocytes (1.4 - 6.5 /CUMM) 3.5 Absolute Lymphocytes (1.2 - 3.4 /CUMM) 1.3 Absolute Monocytes (0.10 - 0.60 /CUMM) 0.4 Absolute Eosinophils (0.0 - 0.7 /CUMM) 0.1 Absolute Basophils (0.0 - 0.2 /CUMM) 0 Other Body Source Fluid WBC Cancelled Fld Total RBCs Counted Cancelled 12/28 12/27 12/27 0815 1740 1200 Chemistry Sodium (137 - 145 mmol/L) 137 Potassium (3.5 - 5.1 mmol/L) 4.7 Chloride (98 - 107 mmol/L) 104 Carbon Dioxide (22 - 30 mmol/L) 18 L Anion Gap (5 - 16) 15 BUN (9 - 20 mg/dL) 50 H Creatinine (0.7 - 1.2 mg/dL) 6.1 *H Estimated GFR (>60 ml/min) 10 L Glucose (65 - 99 mg/dL) 114 H Calcium (8.4 - 10.2 mg/dL) 8.6 Phosphorus (2.5 - 4.5 mg/dL) 4.2 Magnesium (1.6 - 2.3 mg/dL) 2.2 Total Bilirubin (0.2 - 1.3 mg/dL) 0.4 AST (17 - 59 U/L) 15 L ALT (21 - 72 U/L) 18 L Troponin I (<0.11 ng/ml) 0.14 *H 0.15 *H Albumin (3.5 - 5.0 g/dL) 2.9 L Hematology CBC w Diff NO MAN DIFF REQ WBC (4.8 - 10.8 /CUMM) 5.3 RBC (4.70 - 6.10 /CUMM) 2.93 L Hgb (14.0 - 18.0 G/DL) 8.9 L Hct (42 - 52 %) 27.1 L MCV (80.0 - 94.0 FL) 92.5 MCH (27.0 - 31.0 PG) 30.4 MCHC (33.0 - 37.0 G/DL) 32.9 L RDW (11.5 - 14.5 %) 15.2 H Plt Count (130 - 400 /CUMM) 90 L MPV (7.4 - 10.4 FL) 10.6 H Gran % (42.2 - 75.2 %) 70.8 Lymphocytes % (20.5 - 51.1 %) 17.6 L Monocytes % (1.7 - 9.3 %) 9.8 H Eosinophils % (0 - 5 %) 1.3 Basophils % (0.0 - 2.0 %) 0.5 Absolute Granulocytes (1.4 - 6.5 /CUMM) 3.7 Absolute Lymphocytes (1.2 - 3.4 /CUMM) 0.9 L Absolute Monocytes (0.10 - 0.60 /CUMM) 0.5 Absolute Eosinophils (0.0 - 0.7 /CUMM) 0.1 Absolute Basophils (0.0 - 0.2 /CUMM) 0 Toxicology Random Vancomycin (ug/ml) 14.2
--- NOTE | 2017-12-30 11:40 | PN- Infect Dx ---
See Addendum Subjective Subjective: Afebrile without complaints. His blood pressure remains borderline, requiring low-dose Levophed. Objective Last 24 Hrs of Vital Signs/I&O Vital Signs Date Time Temp Pulse Resp B/P B/P Pulse O2 O2 Flow FiO2 Mean Ox Delivery Rate 12/30 0800 98 Room Air 12/30 0800 97.1 78 20 90/60 98 Room Air 12/30 0605 67 99 12/30 0400 97 Room Air 12/30 0346 66 97 12/30 0122 68 97 12/30 0000 97 Room Air 12/30 0000 97.1 71 20 88/50 97 Room Air 12/29 2227 77 96 12/29 1600 96 Room Air Room Air 12/29 1600 97.5 72 22 92/60 95 Room Air Room Air 12/29 1200 95 Room Air Room Air Intake & Output 12/30 1600 12/30 0800 12/30 0000 Intake Total 532 712.8 Output Total Balance 532 712.8 Intake, IV 332 312.8 Intake, Oral 200 400 Physical Exam Other Physical Findings: He appears comfortable in no acute distress Lungs are clear Heart regular rhythm with no murmur Extremities right BKA stump stocking intact Results Last 24 Hours of Lab Results: Laboratory Tests 12/30 12/29 12/29 0550 2222 1245 Chemistry Sodium (137 - 145 mmol/L) 140 Potassium (3.5 - 5.1 mmol/L) 4.1 Chloride (98 - 107 mmol/L) 101 Carbon Dioxide (22 - 30 mmol/L) 25 Anion Gap (5 - 16) 14 BUN (9 - 20 mg/dL) 45 H Creatinine (0.7 - 1.2 mg/dL) 6.2 *H Estimated GFR (>60 ml/min) 9 L Glucose (65 - 99 mg/dL) 122 H Calcium (8.4 - 10.2 mg/dL) 8.2 L Phosphorus (2.5 - 4.5 mg/dL) 3.1 Magnesium (1.6 - 2.3 mg/dL) 2.1 Total Bilirubin (0.2 - 1.3 mg/dL) 0.4 AST (17 - 59 U/L) 10 L ALT (21 - 72 U/L) 23 Albumin (3.5 - 5.0 g/dL) 2.9 L Coagulation APTT (25 - 37 SEC) 67 H 56 H 45 H Hematology CBC w Diff NO MAN DIFF REQ WBC (4.8 - 10.8 /CUMM) 4.6 L RBC (4.70 - 6.10 /CUMM) 2.73 L Hgb (14.0 - 18.0 G/DL) 8.2 L Hct (42 - 52 %) 25.2 L MCV (80.0 - 94.0 FL) 92.2 MCH (27.0 - 31.0 PG) 30.1 MCHC (33.0 - 37.0 G/DL) 32.6 L RDW (11.5 - 14.5 %) 15.1 H Plt Count (130 - 400 /CUMM) 105 L MPV (7.4 - 10.4 FL) 9.6 Gran % (42.2 - 75.2 %) 59.1 Lymphocytes % (20.5 - 51.1 %) 29.7 Monocytes % (1.7 - 9.3 %) 7.5 Eosinophils % (0 - 5 %) 3.0 Basophils % (0.0 - 2.0 %) 0.7 Absolute Granulocytes (1.4 - 6.5 /CUMM) 2.7 Absolute Lymphocytes (1.2 - 3.4 /CUMM) 1.4 Absolute Monocytes (0.10 - 0.60 /CUMM) 0.3 Absolute Eosinophils (0.0 - 0.7 /CUMM) 0.1 Absolute Basophils (0.0 - 0.2 /CUMM) 0 Last 24 Hours of [place] Results: Blood cultures 2 December 28 negative Right BKA stump collection December 28 negative Assessment/Plan ID Impression: Stable, though remains on low-dose pressors, with temperatures and white blood cell count remaining normal, now on Cefazolin, Day 4 of treatment for Staph aureus sepsis, most likely secondary to an infected right BKA stump, though the aspiration from 2 days ago remains negative. A relapse of endocarditis is also a concern, though his repeat blood cultures are negative and his transthoracic echo was negative for any vegetation, and he is scheduled for a YULIA on January 02. Based on these results a right AKA will be scheduled per Vascular Surgery. Suggestion: 1. Await YULIA on January 02 2. Await probable right AKA per Vascular Surgery 3. Continue Cefazolin 2 g IV after each dialysis Alannah Patrick MD will be covering until January 09
--- NOTE | 2017-12-30 11:42 | PN- Cardiology ---
Subjective Subjective: Resting comfortably with no new complaints. Objective Vital Signs and I&Os Vital Signs Date Time Temp Pulse Resp B/P B/P Pulse O2 O2 Flow FiO2 Mean Ox Delivery Rate 12/30 0800 98 Room Air 12/30 0800 97.1 78 20 90/60 98 Room Air 12/30 0605 67 99 12/30 0400 97 Room Air 12/30 0346 66 97 12/30 0122 68 97 12/30 0000 97 Room Air 12/30 0000 97.1 71 20 88/50 97 Room Air 12/29 2227 77 96 12/29 1600 96 Room Air Room Air 12/29 1600 97.5 72 22 92/60 95 Room Air Room Air 12/29 1200 95 Room Air Room Air Intake & Output 12/30 1600 12/30 0800 12/30 0000 12/29 1600 12/29 0800 12/29 0000 Intake Total 532 712.8 303 228 263 Output Total 1 0 0 Balance 532 712.8 302 228 263 Intake, IV 332 312.8 303 228 63 Intake, Oral 200 400 200 Number 0 0 Bowel Movements Output, Stool 1 Output, Urine 0 0 Patient 207 lb Weight Weight Bed scale Measurement Method Physical Exam: General: no distress, alert Eyes: No obvious scleral icterus. HEENT: No jugular venous distention or abnormal jugular venous pulsations. Cardiovascular: Normal intensity S1/S2. Regular Respiratory: no rales/ronchi Abdomen: Soft, nontender with no guarding or rebound tenderness. Musculoskeletal: No clubbing or cyanosis noted; prior BKA without pain/erythema Skin: Warm Neurologic: normal speech Current Medications: Current Medications Sig/Bobo Start time Last Medication Dose Route Stop Time Status Admin Acetaminophen 650 MG Q4P PRN 12/26 2100 AC 12/26 PO 2326 Aspirin Buffered 81 MG DAILY 12/27 1000 AC 12/29 PO 08 Atorvastatin Calcium 10 MG 0 12/27 1700 AC 12/29 PO 162 Cefazolin Sodium 2 GM ONCE ONE 12/30 1015 DC N/A 1 UNIT IV 12/30 1044 Cinacalcet 30 MG 12/27 1700 AC 12/29 PO 1626 Clopidogrel Bisulfate 75 MG DAILY 12/27 1000 AC 12/29 PO 0826 Cyanocobalamin 1,000 MCG DAILY 12/27 1000 AC 12/29 PO 08 Docusate Sodium 100 MG DAILY 12/27 1000 AC 12/29 PO 0826 Epoetin Jaron 3,000 UNIT DAILY NEEDED PRN 12/28 0700 AC 12/28 IV 0900 Epoetin Jaron 2,000 UNIT DAILY NEEDED PRN 12/28 0700 AC 12/28 IV 0900 Heparin Sodium 5,000 UNIT .STK-MED ONE 12/30 0006 DC (Porcine) IV 12/30 0007 Heparin Sodium 3,800 UNIT ONCE ONE 12/29 1700 DC 12/29 (Porcine) IV 12/29 1701 1700 Heparin Sodium 5,000 UNIT .STK-MED ONE 12/29 1641 DC (Porcine) IV 12/29 1642 Heparin Sodium 25,000 UNIT Q24H 12/28 2014 AC 12/30 (Porcine) IV 0616 Sodium Chloride 500 ML Lidocaine/Prilocaine 1 GAVI DAILY PRN 12/28 0700 AC 12/28 TOP 0900 Multivitamins 1 TAB DAILY 12/27 1000 AC 12/29 PO 0826 Norepinephrine 8 MG Q7H 12/29 1500 AC Sodium Chloride 250 ML IV Norepinephrine 8 MG Q24H 12/27 0115 DC 12/29 Sodium Chloride 250 ML IV 12/29 1515 0845 Sevelamer Carbonate 2,400 MG WM 12/27 1200 AC 12/29 PO 1626 Results Last 48 Hrs of Labs/Mics: Laboratory Tests 12/30/17 0550: Anion Gap 14, Estimated GFR 9 L, Glucose 122 H, Calcium 8.2 L, Phosphorus 3.1 , Magnesium 2.1, Total Bilirubin 0.4, AST 10 L, ALT 23, Albumin 2.9 L, APTT 67 H, CBC w Diff NO MAN DIFF REQ, RBC 2.73 L, MCV 92.2, MCH 30.1, MCHC 32.6 L, RDW 15.1 H, MPV 9.6, Gran % 59.1, Lymphocytes % 29.7, Monocytes % 7.5, Eosinophils % 3.0, Basophils % 0.7, Absolute Granulocytes 2.7, Absolute Lymphocytes 1.4, Absolute Monocytes 0.3, Absolute Eosinophils 0.1, Absolute Basophils 0 12/29/17 2222: APTT 56 H 12/29/17 1245: APTT 45 H 12/29/17 0413: Anion Gap 14, Estimated GFR 13 L, Glucose 103 H, Calcium 8.2 L, Phosphorus 3.2, Magnesium 2.0, Total Bilirubin 0.6, AST 12 L, ALT 21, Albumin 3.0 L, APTT 36, CBC w Diff NO MAN DIFF REQ, RBC 2.92 L, MCV 93.0, MCH 30.4, MCHC 32.6 L, RDW 15.5 H, Plt Count ND, MPV 11.1 H, Gran % 65.0, Lymphocytes % 24.3, Monocytes % 8.2, Eosinophils % 1.9, Basophils % 0.6, Absolute Granulocytes 3.5, Absolute Lymphocytes 1.3, Absolute Monocytes 0.4, Absolute Eosinophils 0.1, Absolute Basophils 0 12/28/17 1353: Fluid WBC Cancelled, Fld Total RBCs Counted Cancelled Recent Imaging Studies: Telemetry tracings were personally reviewed shows sinus rhythm Assessment/Plan Assessment/Plan 1. Coronary disease by history status post coronary bypass surgery 2006 with complex PCI to the left main into the circumflex September 2017 with normal LV function 2. Hx of Hypertension 3. Peripheral arterial disease status post prior amputation 4. End-stage renal disease on dialysis 5. 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 Diabetes 7. Fever and chills with hypotension most likely secondary to sepsis. 8. Elevated troponins, minimal, not due to ACS 9. Intermittent atrial fibrillation possibly due to sepsis The patient feels well. He is currently on very low-dose levofed. He is currently back in sinus rhythm, continue intravenous heparin for now. Discussed with infectious disease and renal today and the patient will have dialysis early Tuesday morning and if stable will then undergo transesophageal echocardiogram at 11 am. Rocco Jimenez MD [facility] Continue telemetry? Yes
[2017-12-30 15:54] VITALS: BP 98/54
--- NOTE | 2017-12-30 17:48 | Proc Note Internal Medicine ---
Medicine Procedure Procedure Date: 12/30/17 Medical Procedure(s): central venous cath place Pre-Operative Diagnosis: septic shock Estimated Blood Loss: less than 50ml Anesthesia: local monitored anesthesi Procedure Findings: Resident: Ed MARTINEZ Attending: Melina MARTINEZ A time-out was completed verifying correct patient, procedure, site, positioning , and special equipment if applicable. The patient was placed in a dependent position appropriate for central line placement based on the vein to be cannulated. The patients right neck was prepped and draped in sterile fashion. 1% Lidocaine was used to anesthetize the surrounding skin area. A triple lumen 9 -Italian catheter was introduced into the internal jugular vein using the Seldinger technique and under ultrasound guidance. The catheter was threaded smoothly over the guide wire and appropriate blood return was obtained. Each lumen of the catheter was evacuated of air and flushed with sterile saline. The catheter was then sutured in place to the skin and a sterile dressing applied. Perfusion to the extremity distal to the point of catheter insertion was checked and found to be adequate. Dr. Summers, Dr. Ward and Dr. Larry was present for the entire procedure. Estimated Blood Loss: < 50ml The patient tolerated the procedure well and there were no complications. Stat CXR confirmed central port catheter tip at caval atrial junction. There is no evidence of pneumothorax.
--- NOTE | 2017-12-30 18:13 | RADIOLOGY REPORT ---
EXAMINATION: XR PORTABLE CHEST CLINICAL INFORMATION: Triple-lumen right IJ central line catheter placement COMPARISON: None TECHNIQUE: Portable frontal view of the chest was obtained. 5:28 PM FINDINGS: The base of the neck is not included in the study. There is a central line catheter with the tip at the caval atrial junction. There is no pneumothorax. Hazy opacity present at the left lung base with partial silhouetting of the diaphragm consistent with basilar atelectasis or infiltrate. Status post median sternotomy. The heart size is normal. The cardiac and the mediastinal contours are normal. IMPRESSION: Central port catheter tip at caval atrial junction. There is no pneumothorax.
[2017-12-31] VITALS: BP 88/64
[2017-12-31 03:37] LABS: ABSOLUTE BASOPHIL COUNT 0 /CUMM (0.0-0.2); ABSOLUTE EOSINOPHIL COUNT 0.1 /CUMM (0.0-0.7); ABSOLUTE GRANULOCYTE CT 2.5 /CUMM (1.4-6.5); ABSOLUTE LYMPH COUNT 1.6 /CUMM (1.2-3.4); ABSOLUTE MONOCYTE COUNT 0.3 /CUMM (0.10-0.60); BASOPHIL % 0.5 % (0.0-2.0); EOSINOPHIL % 2.4 % (0-5); GRANULOCYTE % 55.9 % (42.2-75.2); HEMATOCRIT 25.9 % (42-52); MEAN CORPUSCULAR HGB 29.6 PG (27.0-31.0); MEAN CORPUSCULAR VOLUME 92.7 FL (80.0-94.0); PLATELET COUNT 101 /CUMM (130-400); RBC DISTRIBUTION WIDTH 15.2 % (11.5-14.5); RED BLOOD CELL CT 2.79 /CUMM (4.70-6.10); WHITE BLOOD CELL COUNT 4.5 /CUMM (4.8-10.8)
[2017-12-31 03:48] LABS: PTT 60 SEC (25-37)
[2017-12-31 08:00] VITALS: BP 92/50
--- NOTE | 2017-12-31 08:37 | PN- Resident CRCU ---
Dashawn MARTINEZ,Santino 12/31/17 0837: Subjective HPI/CRCU Issues: Patient seen and examined. He is seen sitting upright in bed resting comfortably. He appears to be in no acute distress. He reports feeling well and denies any complaints. He denies any headache, fever, chills, chest pain, palpitations, shortness of breath, nausea, vomiting, or diarrhea. Objective Vital Signs & I&O Last 8 Hrs of Vitals and I&O: VS since 0000 -TMAX: 97.0 -HR: 58-70 -RR: 14 -BP: 92/50 -O2: 96-98% on room air Telemetry- NSR Exam General Appearance: well developed/nourished, no apparent distress, alert, awake Other Physical Findings: GEN: well developed, tired appearing middle aged man in no acute distress HEENT: NCAT, PERRL, EOMI, anicteri sclera, MMM NECK: Supple, no JVD, trachea midline, RIJ TLC CARD: Normal S1/S2 w/o m/g/r; RRR PULM: CTA bilaterally ABD: Soft, NT, ND, BS+ NEURO: Awake and alert, CN II-XII grossly intact EXT: right BKA, normal pulses, no edema Current Medications: Current Medications Sig/Bobo Start time Last Medication Dose Route Stop Time Status Admin Acetaminophen 650 MG Q4P PRN 12/26 2100 AC 12/26 PO 2326 Aspirin Buffered 81 MG DAILY 12/27 1000 AC 12/31 PO 1002 Atorvastatin Calcium 10 MG 12/27 1700 AC 12/30 PO 1828 Cefazolin Sodium 2 GM ONCE ONE 12/30 1015 DC 12/30 N/A 1 UNIT IV 12/30 1044 1154 Cinacalcet 30 MG 12/27 1700 AC 12/30 PO 1828 Clopidogrel Bisulfate 75 MG DAILY 12/27 1000 AC 12/31 PO 1002 Cyanocobalamin 1,000 MCG DAILY 12/27 1000 AC 12/31 PO 1002 Docusate Sodium 100 MG DAILY 12/27 1000 AC 12/31 PO 1002 Epoetin Jaron 3,000 UNIT DAILY NEEDED PRN 12/28 0700 AC 12/30 IV 1100 Epoetin Jaron 2,000 UNIT DAILY NEEDED PRN 12/28 0700 AC 12/30 IV 1100 Heparin Sodium 25,000 UNIT Q24H 12/30 1915 AC 12/31 (Porcine) IV 1001 Sodium Chloride 500 ML Heparin Sodium 25,000 UNIT Q24H 12/28 2015 DC 12/30 (Porcine) IV 0616 Sodium Chloride 500 ML Lidocaine/Prilocaine 1 GAVI DAILY PRN 12/28 0700 AC 12/28 TOP 0900 Multivitamins 1 TAB DAILY 12/27 1000 AC 12/31 PO 1002 Norepinephrine 8 MG Q7H 12/29 1500 DC Sodium Chloride 250 ML IV Potassium Chloride 20 MEQ ONCE ONE 12/31 0445 DC 12/31 IV 12/31 0446 0439 Sevelamer Carbonate 2,400 MG WM 12/27 1200 AC 12/31 PO 0828 Impression/Plan Impression/Problem List Impression: 57 year old man with multiple medical problems significant for PAD/PVD s/p right BKA, ESRD on HD, CAD with multiple cardiovascular risk factors seen for evaluation of fatigue and chills with shortness of breath found to have sepsis with probably healthcare acquired pneumonia requring ICU admission with pressor support. Triple lumen catheter was placed yesterday for advanced access due to need for pressor support, however patient has been of levophed since noon yesterday. He remains off pressors and otherwise hemodynamically stable. Heparin drip is to continue until this evening. He is NPO tonight for a YULIA in the morning. He is to receive cefazolin with Dialsys on Tuesday. He remains afebrile without leukocytosis with clinically improving pneumonia. Vascular surgery recommendations pending regarding possible AKA of RLE. He no longer requires ICU monitoring and may be transfered to the telemetry floor for further evaluation. Problem List: -Healthcare associated pneumonia -Sepsis Shock -MSSA bacteremia -Elevated troponin, likely demand ischemia -Atrial fibrillation -ESRD on HD (M/W/F) -Coronary artery disease s/p CABG -Diabetic nephropathy -Right below knee amputation -History of Mitral Valve Endocarditis -Hypertension -Diabetes Mellitus Plan -Transfer to telemetry -NPO Tuesday night for YULIA on Tuesday morning -[facility] -Hemodialysis (M/W/F) -Heparin GGT -Cefazolin with hemodialysis -Continue home meds: aspirin, atrovastatin, cinacalcet, clopidogrel, B12, colace , epo, nephrocaps, renvela -Hold lisinopril / metoprolol for hypotension, restart as tolerated -Consults with cardiology, vascular surgery, infectious disease, and nephrology -Follow up cultures & sensitivities -Pain control with acetaminopen -Renal diet, NPO tonight as above -DVT PPx with -FULL CODE Problem List: 1. Sepsis Pain Ratin Tomorrow's Labs & Rationales: CBC BMP Plan DVT/Prophylaxis: mechanical Saul Alvarenga MD 12/31/17 0909: Attending MD Review Statement Attending Sign Off Attending Cosign Statement: I have: examined this patient, reviewed avalbl EMR data, personally reviewd images, discussd w/resident/PA/INSPECTOR AND HAND PACKAGER, discussed mgmt plan w/whit, discussed mgmt plan w/CM, discussed mgmt plan w/pt, agreed w/resident/PA/INSPECTOR AND HAND PACKAGER, amended to note. Other Findings: ISaul M.D. have examined this patient, reviewed available EMR data, personally reviewed images, discussed with resident/PA/INSPECTOR AND HAND PACKAGER, discussed management plan with housestaff and nursing staff, discussed managment plan all of healthcare providers, discussed management plan with patient and/or family, agreed with resident/PA/INSPECTOR AND HAND PACKAGER. The past history and parts of the chart have been autopopulated. Impression 57 year old man * staph auresis sepsis - concern for endocarditis, most likely due to right BKA stump * hypotension is relative and has a hx of low bp at baseline, still on pressors * ESRD on HD Plan -off pressors since 12/30 -nephrology, cardiology, ID, vascular appreciated -cont abx, cefazolin dosed with HD -HD per nephrology -f/u all cx -monitor hemodynamics -eventual YULAI maybe necessary likely Tuesday if stable DVT prophylaxis at all times TTS 35 min DG to telemetry
[2017-12-31 11:52] LABS: PTT 68 SEC (25-37)
--- NOTE | 2017-12-31 12:23 | PN- Infect Dx ---
Subjective Subjective: No fever/chills. No abd pain. feeling tired. Did not sleep well previous night. Review of Systems Comments: 12 points reviewed as noted, otherwise negative. Objective Last 24 Hrs of Vital Signs/I&O Vital Signs Date Time Temp Pulse Resp B/P B/P Pulse O2 O2 Flow FiO2 Mean Ox Delivery Rate 12/31 08 98 Room Air Room Air 12/31 0800 96.7 68 14 92/50 98 Room Air Room Air 12/31 0529 70 98 12/31 0400 97 CPAP Room Air 12/31 0328 63 97 12/31 0101 58 96 12/31 0000 97 CPAP Room Air 12/31 0000 97.0 68 17 88/64 97 CPAP Room Air 12/30 2232 76 96 12/30 2000 94 Room Air 12/30 1600 95 Room Air 12/30 1554 74.0 74 18 98/54 95 Room Air Intake & Output 12/31 1600 12/31 0800 12/31 0000 Intake Total 412 320.4 Output Total 0 Balance 412 320.4 Intake, IV 412 80.4 Intake, Oral 0 240 Number 0 Bowel Movements Output, Urine 0 Physical Exam Other Physical Findings: General Appearance: well developed/nourished, no apparent distress, alert, awake HEENT: NCAT, PERRL, EOMI, anicteri sclera, MMM NECK: Supple, no JVD, trachea midline, RIJ TLC CARD: Normal S1/S2 w/o m/g/r; RRR PULM: CTA bilaterally ABD: Soft, NT, ND, BS+ NEURO: Awake and alert, CN II-XII grossly intact EXT: right BKA, normal pulses, no edema Results Last 24 Hours of Lab Results: Laboratory Tests 12/31 12/31 1100 0308 Chemistry Sodium (137 - 145 mmol/L) 139 Potassium (3.5 - 5.1 mmol/L) 3.8 Chloride (98 - 107 mmol/L) 101 Carbon Dioxide (22 - 30 mmol/L) 27 Anion Gap (5 - 16) 11 BUN (9 - 20 mg/dL) 26 H Creatinine (0.7 - 1.2 mg/dL) 4.0 H Estimated GFR (>60 ml/min) 16 L Glucose (65 - 99 mg/dL) 94 Calcium (8.4 - 10.2 mg/dL) 8.2 L Phosphorus (2.5 - 4.5 mg/dL) 2.9 Magnesium (1.6 - 2.3 mg/dL) 2.0 Total Bilirubin (0.2 - 1.3 mg/dL) 0.3 AST (17 - 59 U/L) 10 L ALT (21 - 72 U/L) 22 Albumin (3.5 - 5.0 g/dL) 3.0 L Coagulation APTT (25 - 37 SEC) Pending 60 H Hematology CBC w Diff NO MAN DIFF REQ WBC (4.8 - 10.8 /CUMM) 4.5 L RBC (4.70 - 6.10 /CUMM) 2.79 L Hgb (14.0 - 18.0 G/DL) 8.3 L Hct (42 - 52 %) 25.9 L MCV (80.0 - 94.0 FL) 92.7 MCH (27.0 - 31.0 PG) 29.6 MCHC (33.0 - 37.0 G/DL) 32.0 L RDW (11.5 - 14.5 %) 15.2 H Plt Count (130 - 400 /CUMM) 101 L MPV (7.4 - 10.4 FL) 10.0 Gran % (42.2 - 75.2 %) 55.9 Lymphocytes % (20.5 - 51.1 %) 35.2 Monocytes % (1.7 - 9.3 %) 6.0 Eosinophils % (0 - 5 %) 2.4 Basophils % (0.0 - 2.0 %) 0.5 Absolute Granulocytes (1.4 - 6.5 /CUMM) 2.5 Absolute Lymphocytes (1.2 - 3.4 /CUMM) 1.6 Absolute Monocytes (0.10 - 0.60 /CUMM) 0.3 Absolute Eosinophils (0.0 - 0.7 /CUMM) 0.1 Absolute Basophils (0.0 - 0.2 /CUMM) 0 Last 24 Hours of Brendan Results: SPEC #: [id number] BRIAN: 12/26/17 STATUS: COMP RECD: 12/26/[address]: Lynn Mello SOURCE: BLOOD ENTR: 12/26/[address] [facility] [address]: Michelle MARTINEZ,Clinton Sinclair SPDESC: 1ST/VENOUS ORDERED: BLOOD CULTURE Procedure Result > BLOOD CULTURE REPORT Final 12/29/17-1308 GRAM STAIN SUGGESTIVE OF: GRAM POSITIVE COCCI IN CLUSTERS Called to/Readback by TATIANA by LAB.CORINE 12/27/17 0648 AND Called to/Readback by DR PRATER by LAB.KEYSHAWN 12/27/17 0751 CULTURE STAPH AUREUS ISOLATED 1. STAPH AUREUS RX ABN ------ --- 1. STAPH AUREUS RX AB ------ -- CEFAZOLIN S AMOXICILLIN/CLAVULINIC ACID S AMPICILLIN/SULBACTAM S TETRACYCLINE S TRIMETHOPRIM/SULFAMETHOXAZOLE S AZITHROMYCIN S CLINDAMYCIN S ERYTHROMYCIN S OXACILLIN S VANCOMYCIN S BC 12/28 NGTD x 2 Recent Imaging Studies: 2D Echo: CONCLUSIONS Normal left and right ventricular systolic function. Mild to moderate Mitral and tricuspid regurgitation. Moderate to severe Pulmonary hypertension. Erasto Trinidad M.D. (Electronically Signed) Final Date: 27 December 2017 12:36 Assessment/Plan ID Impression: This is a 57-year-old man with a history of diabetes, coronary artery disease, status post angioplasty and stent over 3 months prior to admission, end-stage renal disease, maintained on hemodialysis Mondays, Wednesdays and Fridays via a left forearm fistula, status post a right BKA 8 years prior to admission, complicated by several infections of the stump secondary to MSSA, most recently 2-1/2 months prior to admission, with evidence of osteomyelitis at that time, status post I&D of the soft tissue with plans for AKA at a later date, and with a transthoracic echo revealing a possible mitral valve vegetation, treated with a 6 week course of Cefazolin, admitted on December 26 with lethargy and chills, found to be febrile with a normal white blood cell count and with blood cultures sepsis. He has no obvious source but must suspect that this either represents a relapse of his endocarditis, in which case he will require valve replacement, though no vegetation was identified on his recent echocardiogram, a residual infection related to the right BKA stump, though there is no evidence of inflammation around the stump, or another focus that may have been seeded from the recent bacteremia. Suggestion: 1. Await YULIA on January 02 2. Await probable right AKA per Vascular Surgery 3. Continue Cefazolin 2 g IV after each dialysis started 12/27. 4. CBC, BMP, ESR on Tuesday.
--- NOTE | 2017-12-31 12:38 | PN- Cardiology ---
Subjective Subjective: Stable with no new issues Objective Vital Signs and I&Os Vital Signs Date Time Temp Pulse Resp B/P B/P Pulse O2 O2 Flow FiO2 Mean Ox Delivery Rate 12/31 0800 98 Room Air Room Air 12/31 0800 96.7 68 14 92/50 98 Room Air Room Air 12/31 0529 70 98 12/31 0400 97 CPAP Room Air 12/31 0328 63 97 12/31 0101 58 96 12/31 0000 97 CPAP Room Air 12/31 0000 97.0 68 17 88/64 97 CPAP Room Air 12/30 2232 76 96 12/30 2000 94 Room Air 12/30 1600 95 Room Air 12/30 1554 74.0 74 18 98/54 95 Room Air Intake & Output 12/31 1600 12/31 0800 12/31 0000 12/30 1600 12/30 0800 12/30 0000 Intake Total 412 320.4 500 532 712.8 Output Total 0 2900 Balance 412 320.4 -2400 532 712.8 Intake, IV 412 80.4 260 332 312.8 Intake, Oral 0 240 240 200 400 Number 0 0 Bowel Movements Output, 2900 Dialysate Output, Urine 0 0 Patient 208 lb Weight Weight Bed scale Measurement Method Physical Exam: General Appearance: well developed/nourished, no apparent distress, alert, awake Head: atraumatic, normal appearance Neck: normal inspection Respiratory: normal breath sounds, quiet respiration, lungs clear Cardiovascular: regular rate/rhythm, systolic murmur Gastrointestinal: soft, non-tender Extremities: r. bka, R. TLC in place. dressing clean and intact Current Medications: Current Medications Sig/Bobo Start time Last Medication Dose Route Stop Time Status Admin Acetaminophen 650 MG Q4P PRN 12/26 2100 AC 12/26 PO 2326 Aspirin Buffered 81 MG DAILY 12/27 1000 AC 12/31 PO 1002 Atorvastatin Calcium 10 MG 12/27 1700 AC 12/30 PO 1828 Cefazolin Sodium 2 GM 01/02 1000 AC N/A 1 UNIT IV Cinacalcet 30 MG 12/27 1700 AC 12/30 PO 1828 Clopidogrel Bisulfate 75 MG DAILY 12/27 1000 AC 12/31 PO 1002 Cyanocobalamin 1,000 MCG DAILY 12/27 1000 AC 12/31 PO 1002 Docusate Sodium 100 MG DAILY 12/27 1000 AC 12/31 PO 1002 Epoetin Jaron 3,000 UNIT DAILY NEEDED PRN 12/28 0700 AC 12/30 IV 1100 Epoetin Jaron 2,000 UNIT DAILY NEEDED PRN 12/28 0700 AC 12/30 IV 1100 Heparin Sodium 25,000 UNIT Q24H 12/30 1915 AC 12/31 (Porcine) IV 1001 Sodium Chloride 500 ML Heparin Sodium 25,000 UNIT Q24H 12/28 2015 DC 12/30 (Porcine) IV 0616 Sodium Chloride 500 ML Lidocaine/Prilocaine 1 GAVI DAILY PRN 12/28 0700 AC 12/28 TOP 0900 Multivitamins 1 TAB DAILY 12/27 1000 AC 12/31 PO 1002 Norepinephrine 8 MG Q7H 12/29 1500 DC Sodium Chloride 250 ML IV Potassium Chloride 20 MEQ ONCE ONE 12/31 0445 DC 12/31 IV 12/31 044 0439 Sevelamer Carbonate 2,400 MG WM 12/27 1200 AC 12/31 PO 1145 Results Last 48 Hrs of Labs/Mics: Laboratory Tests 12/31/17 1100: APTT 68 H 12/31/17 0308: Anion Gap 11, Estimated GFR 16 L, Glucose 94, Calcium 8.2 L, Phosphorus 2.9, Magnesium 2.0, Total Bilirubin 0.3, AST 10 L, ALT 22, Albumin 3.0 L, APTT 60 H, CBC w Diff NO MAN DIFF REQ, RBC 2.79 L, MCV 92.7, MCH 29.6, MCHC 32.0 L, RDW 15.2 H, MPV 10.0, Gran % 55.9, Lymphocytes % 35.2, Monocytes % 6.0, Eosinophils % 2.4, Basophils % 0.5, Absolute Granulocytes 2.5, Absolute Lymphocytes 1.6, Absolute Monocytes 0.3, Absolute Eosinophils 0.1, Absolute Basophils 0 12/30/17 0550: Anion Gap 14, Estimated GFR 9 L, Glucose 122 H, Calcium 8.2 L, Phosphorus 3.1 , Magnesium 2.1, Total Bilirubin 0.4, AST 10 L, ALT 23, Albumin 2.9 L, APTT 67 H, CBC w Diff NO MAN DIFF REQ, RBC 2.73 L, MCV 92.2, MCH 30.1, MCHC 32.6 L, RDW 15.1 H, MPV 9.6, Gran % 59.1, Lymphocytes % 29.7, Monocytes % 7.5, Eosinophils % 3.0, Basophils % 0.7, Absolute Granulocytes 2.7, Absolute Lymphocytes 1.4, Absolute Monocytes 0.3, Absolute Eosinophils 0.1, Absolute Basophils 0 12/29/17 2222: APTT 56 H 12/29/17 1245: APTT 45 H Assessment/Plan Assessment/Plan Assessment: 1. Coronary disease by history status post coronary bypass surgery 2006 with complex PCI to the left main into the circumflex September 2017 with normal LV function 2. Hx of Hypertension 3. Peripheral arterial disease status post prior amputation 4. End-stage renal disease on dialysis 5. 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 Diabetes 7. Fever and chills with hypotension most likely secondary to sepsis. 8. Elevated troponins, minimal, not due to ACS 9. Intermittent atrial fibrillation possibly due to sepsis Recommendations: -Continue as per the ICU team -Cardiac status appears unchanged. -Nothing by mouth after midnight Tuesday for dialysis and subsequent YULIA on Tuesday. Continue telemetry? Yes
[2017-12-31 14:16] VITALS: BP 96/60
--- NOTE | 2017-12-31 14:23 | PN- Nephrology ---
Assessment/Plan Nephrology Assessment: 1. MSSA bacteremia likely with folliculitis for transesophageal echo on Tuesday 2. End-stage renal disease on hemodialysis. We'll plan dialysis for before the planned transesophageal echo 3. 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 Suggestion: 1. Multiple plan dialysis for Tuesday morning 2. Await transesophageal echo 3. Continue with Epogen Subjective Subjective: Patient feels a bit better today. Just transferred out of the ICU. Objective Vital Signs and I&Os Vital Signs Date Time Temp Pulse Resp B/P B/P Pulse O2 O2 Flow FiO2 Mean Ox Delivery Rate 12/31 1416 98.0 64 20 96/60 94 Room Air 12/31 0800 98 Room Air Room Air 12/31 0800 96.7 68 14 92/50 98 Room Air Room Air 12/31 0529 70 98 12/31 0400 97 CPAP Room Air 12/31 0328 63 97 12/31 0101 58 96 12/31 0000 97 CPAP Room Air 12/31 0000 97.0 68 17 88/64 97 CPAP Room Air 12/30 2232 76 96 12/30 2000 94 Room Air 12/30 1600 95 Room Air 12/30 1554 74.0 74 18 98/54 95 Room Air Intake & Output 12/31 1600 12/31 0400 12/30 1600 12/30 0400 12/29 1600 12/29 0400 Intake Total 412 320.4 1032 712.8 531 263 Output Total 0 2900 1 0 Balance 412 320.4 -1868 712.8 530 263 Intake, IV 412 80.4 592 312.8 531 63 Intake, Oral 0 240 440 400 200 Number 0 0 0 0 Bowel Movements Output, 2900 Dialysate Output, Stool 1 Output, Urine 0 0 0 0 Patient 208 lb 207 lb Weight Weight Bed scale Bed scale Measurement Method Physical Exam General Appearance: alert, awake, chronically ill-appearing gentleman in no acute distress Head: atraumatic, normal appearance Ears, Nose, Throat: hearing grossly normal Neck: normal inspection Respiratory: normal breath sounds Cardiovascular: regular rate/rhythm Abdomen: normal bowel sounds, soft, non-tender Extremities: status post right BKA Neurologic/Psychiatric: awake, alert, oriented x 3 Skin: intact, no rash or concerning lesions Current Medications: Current Medications Sig/Bobo Start time Last Medication Dose Route Stop Time Status Admin Acetaminophen 650 MG Q4P PRN 12/26 2100 AC 12/26 PO 2326 Aspirin Buffered 81 MG DAILY 12/27 1000 AC 12/31 PO 1002 Atorvastatin Calcium 10 MG 17012/27 1700 AC 12/30 PO 1828 Cefazolin Sodium 2 GM 01/02 1000 AC N/A 1 UNIT IV Cinacalcet 30 MG 17012/27 1700 AC 12/30 PO 1828 Clopidogrel Bisulfate 75 MG DAILY 12/27 1000 AC 12/31 PO 1002 Cyanocobalamin 1,000 MCG DAILY 12/27 1000 AC 12/31 PO 1002 Docusate Sodium 100 MG DAILY 12/27 1000 AC 12/31 PO 1002 Epoetin Jaron 3,000 UNIT DAILY NEEDED PRN 12/28 0700 AC 12/30 IV 1100 Epoetin Jaron 2,000 UNIT DAILY NEEDED PRN 12/28 0700 AC 12/30 IV 1100 Heparin Sodium 25,000 UNIT Q24H 12/30 1915 AC 12/31 (Porcine) IV 1001 Sodium Chloride 500 ML Heparin Sodium 25,000 UNIT Q24H 12/28 2014 DC 12/30 (Porcine) IV 0616 Sodium Chloride 500 ML Lidocaine/Prilocaine 1 GAVI DAILY PRN 12/28 0700 AC 12/28 TOP 0900 Multivitamins 1 TAB DAILY 12/27 1000 AC 12/31 PO 1002 Potassium Chloride 20 MEQ ONCE ONE 12/31 0445 DC 12/31 IV 12/31 0446 0439 Sevelamer Carbonate 2,400 MG WM 12/27 1200 AC 12/31 PO 1145 Results Pertinent Lab Results: Laboratory Tests 12/31 12/31 1100 0308 Chemistry Sodium (137 - 145 mmol/L) 139 Potassium (3.5 - 5.1 mmol/L) 3.8 Chloride (98 - 107 mmol/L) 101 Carbon Dioxide (22 - 30 mmol/L) 27 Anion Gap (5 - 16) 11 BUN (9 - 20 mg/dL) 26 H Creatinine (0.7 - 1.2 mg/dL) 4.0 H Estimated GFR (>60 ml/min) 16 L Glucose (65 - 99 mg/dL) 94 Calcium (8.4 - 10.2 mg/dL) 8.2 L Phosphorus (2.5 - 4.5 mg/dL) 2.9 Magnesium (1.6 - 2.3 mg/dL) 2.0 Total Bilirubin (0.2 - 1.3 mg/dL) 0.3 AST (17 - 59 U/L) 10 L ALT (21 - 72 U/L) 22 Albumin (3.5 - 5.0 g/dL) 3.0 L Coagulation APTT (25 - 37 SEC) 68 H 60 H Hematology CBC w Diff NO MAN DIFF REQ WBC (4.8 - 10.8 /CUMM) 4.5 L RBC (4.70 - 6.10 /CUMM) 2.79 L Hgb (14.0 - 18.0 G/DL) 8.3 L Hct (42 - 52 %) 25.9 L MCV (80.0 - 94.0 FL) 92.7 MCH (27.0 - 31.0 PG) 29.6 MCHC (33.0 - 37.0 G/DL) 32.0 L RDW (11.5 - 14.5 %) 15.2 H Plt Count (130 - 400 /CUMM) 101 L MPV (7.4 - 10.4 FL) 10.0 Gran % (42.2 - 75.2 %) 55.9 Lymphocytes % (20.5 - 51.1 %) 35.2 Monocytes % (1.7 - 9.3 %) 6.0 Eosinophils % (0 - 5 %) 2.4 Basophils % (0.0 - 2.0 %) 0.5 Absolute Granulocytes (1.4 - 6.5 /CUMM) 2.5 Absolute Lymphocytes (1.2 - 3.4 /CUMM) 1.6 Absolute Monocytes (0.10 - 0.60 /CUMM) 0.3 Absolute Eosinophils (0.0 - 0.7 /CUMM) 0.1 Absolute Basophils (0.0 - 0.2 /CUMM) 0 12/30 12/29 12/29 0550 2222 1245 Chemistry Sodium (137 - 145 mmol/L) 140 Potassium (3.5 - 5.1 mmol/L) 4.1 Chloride (98 - 107 mmol/L) 101 Carbon Dioxide (22 - 30 mmol/L) 25 Anion Gap (5 - 16) 14 BUN (9 - 20 mg/dL) 45 H Creatinine (0.7 - 1.2 mg/dL) 6.2 *H Estimated GFR (>60 ml/min) 9 L Glucose (65 - 99 mg/dL) 122 H Calcium (8.4 - 10.2 mg/dL) 8.2 L Phosphorus (2.5 - 4.5 mg/dL) 3.1 Magnesium (1.6 - 2.3 mg/dL) 2.1 Total Bilirubin (0.2 - 1.3 mg/dL) 0.4 AST (17 - 59 U/L) 10 L ALT (21 - 72 U/L) 23 Albumin (3.5 - 5.0 g/dL) 2.9 L Coagulation APTT (25 - 37 SEC) 67 H 56 H 45 H Hematology CBC w Diff NO MAN DIFF REQ WBC (4.8 - 10.8 /CUMM) 4.6 L RBC (4.70 - 6.10 /CUMM) 2.73 L Hgb (14.0 - 18.0 G/DL) 8.2 L Hct (42 - 52 %) 25.2 L MCV (80.0 - 94.0 FL) 92.2 MCH (27.0 - 31.0 PG) 30.1 MCHC (33.0 - 37.0 G/DL) 32.6 L RDW (11.5 - 14.5 %) 15.1 H Plt Count (130 - 400 /CUMM) 105 L MPV (7.4 - 10.4 FL) 9.6 Gran % (42.2 - 75.2 %) 59.1 Lymphocytes % (20.5 - 51.1 %) 29.7 Monocytes % (1.7 - 9.3 %) 7.5 Eosinophils % (0 - 5 %) 3.0 Basophils % (0.0 - 2.0 %) 0.7 Absolute Granulocytes (1.4 - 6.5 /CUMM) 2.7 Absolute Lymphocytes (1.2 - 3.4 /CUMM) 1.4 Absolute Monocytes (0.10 - 0.60 /CUMM) 0.3 Absolute Eosinophils (0.0 - 0.7 /CUMM) 0.1 Absolute Basophils (0.0 - 0.2 /CUMM) 0 12/29 412 Chemistry Sodium (137 - 145 mmol/L) 141 Potassium (3.5 - 5.1 mmol/L) 4.0 Chloride (98 - 107 mmol/L) 102 Carbon Dioxide (22 - 30 mmol/L) 25 Anion Gap (5 - 16) 14 BUN (9 - 20 mg/dL) 32 H Creatinine (0.7 - 1.2 mg/dL) 4.6 H Estimated GFR (>60 ml/min) 13 L Glucose (65 - 99 mg/dL) 103 H Calcium (8.4 - 10.2 mg/dL) 8.2 L Phosphorus (2.5 - 4.5 mg/dL) 3.2 Magnesium (1.6 - 2.3 mg/dL) 2.0 Total Bilirubin (0.2 - 1.3 mg/dL) 0.6 AST (17 - 59 U/L) 12 L ALT (21 - 72 U/L) 21 Albumin (3.5 - 5.0 g/dL) 3.0 L Coagulation APTT (25 - 37 SEC) 36 Hematology CBC w Diff NO MAN DIFF REQ WBC (4.8 - 10.8 /CUMM) 5.4 RBC (4.70 - 6.10 /CUMM) 2.92 L Hgb (14.0 - 18.0 G/DL) 8.9 L Hct (42 - 52 %) 27.1 L MCV (80.0 - 94.0 FL) 93.0 MCH (27.0 - 31.0 PG) 30.4 MCHC (33.0 - 37.0 G/DL) 32.6 L RDW (11.5 - 14.5 %) 15.5 H Plt Count (130 - 400 /CUMM) ND MPV (7.4 - 10.4 FL) 11.1 H Gran % (42.2 - 75.2 %) 65.0 Lymphocytes % (20.5 - 51.1 %) 24.3 Monocytes % (1.7 - 9.3 %) 8.2 Eosinophils % (0 - 5 %) 1.9 Basophils % (0.0 - 2.0 %) 0.6 Absolute Granulocytes (1.4 - 6.5 /CUMM) 3.5 Absolute Lymphocytes (1.2 - 3.4 /CUMM) 1.3 Absolute Monocytes (0.10 - 0.60 /CUMM) 0.4 Absolute Eosinophils (0.0 - 0.7 /CUMM) 0.1 Absolute Basophils (0.0 - 0.2 /CUMM) 0
--- NOTE | 2017-12-31 15:28 | PN- Vascular Surgery ---
Subjective Subjective: VASCULAR ATTENDING NOTE: Pt. seen for f/u. Stable LE exam. Culture from BKA stump is NTD. ? final decision regarding further proximal debridement or amputation. Recommend pulm. consult to eval. if possible source may have been PNA?. 1.) Cont. care per primary team/ID 2.) Pulm. consult? 3.) Cardiology for YULIA on Tuesday 4.) Will follow Core Measures Venous Thromboembolism VTE Risk Factors Age>40 No Mechanical VTE Prophylaxis d/t Physical Contraindication No VTE Pharm Prophylaxis d/t NA PharmProphylax ordered
[2017-12-31 21:47] VITALS: BP 100/66
[2017-12-31 23:21] LABS: PTT 60 SEC (25-37)
[2018-01-01 05:51] LABS: ABSOLUTE BASOPHIL COUNT 0 /CUMM (0.0-0.2); ABSOLUTE EOSINOPHIL COUNT 0.2 /CUMM (0.0-0.7); ABSOLUTE GRANULOCYTE CT 2.5 /CUMM (1.4-6.5); ABSOLUTE LYMPH COUNT 1.8 /CUMM (1.2-3.4); ABSOLUTE MONOCYTE COUNT 0.2 /CUMM (0.10-0.60); BASOPHIL % 0.5 % (0.0-2.0); EOSINOPHIL % 3.7 % (0-5); GRANULOCYTE % 53.1 % (42.2-75.2); HEMATOCRIT 24.6 % (42-52); MEAN CORPUSCULAR HGB 29.6 PG (27.0-31.0); MEAN CORPUSCULAR HGB CONC 32.2 G/DL (33.0-37.0); MEAN CORPUSCULAR VOLUME 92.1 FL (80.0-94.0); MEAN PLATELET VOLUME 9.8 FL (7.4-10.4); PLATELET COUNT 95 /CUMM (130-400); RBC DISTRIBUTION WIDTH 15.3 % (11.5-14.5); RED BLOOD CELL CT 2.67 /CUMM (4.70-6.10); WHITE BLOOD CELL COUNT 4.8 /CUMM (4.8-10.8)
[2018-01-01 06:00] LABS: PTT 61 SEC (25-37)
[2018-01-01 06:43] VITALS: BP 98/56
--- NOTE | 2018-01-01 09:23 | PN- Housestaff ---
Fazal MARTINEZ,Sommer 01/01/18 0923: Subjective Follow-up For: Staph aureus sepsis, ruling out endocarditis Hypotension ESRD on dialysis Paroxysmal A.soto BKA Tele-Events Since Last Visit: Normal sinus rhythm heart rate 63-69, first-degree AV block Subjective: Patient was seen and examined today. Patient reports feeling fine today. Patient denies any chest pain, palpitations, lightheadedness, dizziness, headache, visual disturbances, fever/chills, diaphoresis, nausea/vomiting, diarrhea. Patient notes that he is chronically constipated. Patient is on dialysis and does not have any urine output. Patient denies any lower extremity swelling or pain. Review of Systems Constitutional: Reports: no symptoms. Cardiovascular: Reports: no symptoms. Respiratory: Reports: no symptoms. Gastrointestinal: Reports: no symptoms. Genitourinary: Reports: no symptoms. Musculoskeletal: Reports: no symptoms. Neurological/Psychological: Reports: no symptoms. Hematologic/Endocrine: Reports: no symptoms. Objective Last 24 Hrs of Vital Signs/I&O Vital Signs Date Time Temp Pulse Resp B/P B/P Pulse O2 O2 Flow FiO2 Mean Ox Delivery Rate 01/01 2108 98.4 77 20 100/60 94 01/01 1600 Room Air 01/01 1447 97.8 74 14 100/60 95 Room Air 01/01 0643 97.4 73 20 98/56 95 CPAP 01/01 0014 70 96 01/01 0000 CPAP 12/31 2244 68 97 Intake & Output 01/01 1600 01/01 0800 01/01 0000 Intake Total 831.6 501.6 625.6 Output Total Balance 831.6 501.6 625.6 Intake, IV 381.6 381.6 175.6 Intake, Oral 450 120 450 Patient 222 lb Weight Weight Bed scale Measurement Method Physical Exam General Appearance: Alert, Oriented X3, Cooperative, No Acute Distress Skin Temp/Moisture Exam: Warm/Dry Sepsis Skin Exam (color): Normal for Ethnicity HEENT: Atraumatic, PERRLA, EOMI, Mucous Membr. moist/pink, central line in placed on right IJ, with no erythema, discharge or tenderness present Cardiovascular: Regular Rate, Normal S1, Normal S2 Lungs: Clear to Auscultation, Normal Air Movement Abdomen: Normal Bowel Sounds, Soft, No Tenderness Neurological: Normal Speech Extremities: No Clubbing, No Cyanosis, No Edema, Normal Pulses, No Tenderness/ Swelling, bka of right lower extremity with no tenderness, erythema or swelling. Current Medications: Current Medications Sig/Bobo Start time Last Medication Dose Route Stop Time Status Admin Acetaminophen 650 MG Q4P PRN 12/26 2100 AC 12/26 PO 2326 Aspirin Buffered 81 MG DAILY 12/27 1000 AC 01/01 PO 0942 Atorvastatin Calcium 10 MG 12/27 1700 AC 01/01 PO 1746 Cefazolin Sodium 2 GM 01/02 1000 AC N/A 1 UNIT IV Cinacalcet 30 MG 12/27 1700 AC 01/01 PO 1746 Clopidogrel Bisulfate 75 MG DAILY 12/27 1000 AC 01/01 PO 0942 Cyanocobalamin 1,000 MCG DAILY 12/27 1000 AC 01/01 PO 0942 Docusate Sodium 100 MG DAILY 12/27 1000 AC 01/01 PO 0942 Epoetin Jaron 3,000 UNIT DAILY NEEDED PRN 12/28 0700 AC 12/30 IV 1100 Epoetin Jaron 2,000 UNIT DAILY NEEDED PRN 12/28 0700 AC 12/30 IV 1100 Heparin Sodium 25,000 UNIT .STK-MED ONE 01/01 1100 DC (Porcine) IV 01/01 1101 Heparin Sodium 25,000 UNIT Q24H 12/30 1915 AC 01/01 (Porcine) IV 01/02 0600 1102 Sodium Chloride 500 ML Lidocaine/Prilocaine 1 GAVI DAILY PRN 12/28 0700 AC 12/28 TOP 0900 Multivitamins 1 TAB DAILY 12/27 1000 AC 01/01 PO 0942 Sevelamer Carbonate 2,400 MG WM 12/27 1200 AC 01/01 PO 1746 Last 24 Hrs of Lab/Brendan Results Last 24 Hrs of Labs/Mics: Laboratory Tests 01/01/18 1830: APTT 89 H 01/01/18 0529: Anion Gap 12, Estimated GFR 11 L, BUN/Creatinine Ratio 7.3, APTT 61 H, CBC w Diff NO MAN DIFF REQ, RBC 2.67 L, MCV 92.1, MCH 29.6, MCHC 32.2 L, RDW 15.3 H , MPV 9.8, Gran % 53.1, Lymphocytes % 38.3, Monocytes % 4.4, Eosinophils % 3.7, Basophils % 0.5, Absolute Granulocytes 2.5, Absolute Lymphocytes 1.8, Absolute Monocytes 0.2, Absolute Eosinophils 0.2, Absolute Basophils 0 12/31/17 2300: APTT 60 H Lines/Diet/Fluids Lines: central line Assessment/Plan Assessment: Patient is a 57-year-old male with past medical history significant for peripheral arterial disease status post right [id number] amputation, end- stage renal disease on hemodialysis, coronary artery disease status post PCI and 1 drug-eluting stent in the left main circumflex artery (September 2017) and status post quadruple CABG (2006), diabetes, history of obstructive sleep apnea on CPAP at night, chronic anemia, most recent admission for septic arthritis and staph aureus sepsis, mitral valve endocarditis, osteomyelitis, history of C. difficile presented this admission after he was found to be hypotensive and tachycardic during dialysis with report of recent fatigue and dyspnea. Patient was recently transferred from ICU to telemetry. Patient was initially admitted for sepsis requiring ICU admission due to pressor support, atrial fibrillation, healthcare associated pneumonia. Patient had a triple lumen catheter placed on 12/30 however pressors were discontinued and patient was stable enough to be transferred to telemetry. Today patient remains slightly hypotensive however is otherwise stable. Patient reports no symtpoms. Patient's blood cultures from December 26 grew pansensitive staph aureus. Repeat blood cultures show no growth to date. Patient has been on IV cefazolin 2 grams after each hemodialysis treatment. Patient is currently being followed by ID, nephrology, cardiology and vascular surgery. Patient had an echo which was nondiagnostic for possible vegetations. Patient is to undergo a YULIA tomorrow. Pending YULIA results patient may require AKA per vascular surgery. Patient will have dialysis tomorrow morning at 6 AM. 1. Staph aureus sepsis, ruling out endocarditis 2. Atrial fibrillation currently in normal sinus rhythm on IV heparin drip 3. End-stage renal disease on hemodialysis 4. Right-sided BKA 5. Chronic anemia on Epogen 6. CAD s/p stent and CABG 7. Chronic constipation Plan: - Continue to monitor on telemetry - Cardiology, nephrology, infectious disease consulted. Appreciate recommendations - Continue IV cefazolin 2 g after each hemodialysis - Continue IV heparin drip - Continue Epojen - Continue Sensipar - Continue Sevelamer - Continue Atorvastatin - Continue Aspirin - Continue Plavix - Continue vitamin b12, multivitamin - Continue colace - NPO for YULIA tomorrow - Hemodialysis tomorrow at 6AM - Possible BKA tomorrow with vascular surgery (Dr. Garcia) pending YULIA results - Continue to follow up blood cultures - Repeat CBC, BEP and ESR tomorrow DVT PPx: on IV heparin Diet: NPO for YULIA Code: Full code Problem List: 1. Sepsis 2. Renal failure 3. A-fib Pain Ratin Pain Location: n/a Pain Goal: Remain pain free Pain Plan: tylenol PRN Tomorrow's Labs & Rationales: CBC - infection BEP - renal dialysis ESR - infection Kelvin Summers MD 01/01/18 1403: Attending MD Review Statement Attending Statement Attending MD Statement: examined this patient, discuss w/resident/PA/DYE AUTOMATION OPERATOR, agreed w/resident/PA/DYE AUTOMATION OPERATOR, discussed with nursing Attending Assessment/Plan: 57 year old man, significant vasculopath known peripheral arterial disease status post right below-knee amputation history renal disease on hemodialysis coronary artery disease with multiple risk factors, recent complex PCI in 2016 presents with shortness of breath found to have sepsis and possible healthcare associated pneumonia was in the ICU and on pressors briefly. Transfer to telemetry last evening. Patient seen and examined at bedside this morning. Feeling the best today, compared to on the previous days in the hospital. Denies chest pain shortness of breath lightheadedness dizziness. Is able to tolerate diet. Vital signs are stable although minimally hypotensive. * staph auresis sepsis - concern for endocarditis, most likely due to right BKA stump * Hypotension is resolving * ESRD on HD Paroxysmal atrial fibrillation - possibly related to sepsis CAD - S/P CABG - s/p recent complex PCI in Sep 2017 Plan - Nothing by mouth after midnight, plan for transesophageal echocardiogram tomorrow morning -nephrology, cardiology, ID, vascular appreciated -cont abx, Cefazolin dosed with HD -HD per nephrology - tomorrow morning at 6 AM. RIJ central line in place -f/u all cx - Continue with aspirin and Plavix and IV heparin infusion (definitive anticoagulation to be decided after obtaining recommendations from cardiology). DVT prophylaxis at all times
--- NOTE | 2018-01-01 13:00 | PN- Infect Dx ---
Subjective Subjective: No fever. Apears less fatigued. Overall feeling better. Review of Systems Comments: 12 points reviewed as noted, otherwise negative. Objective Last 24 Hrs of Vital Signs/I&O Vital Signs Date Time Temp Pulse Resp B/P B/P Pulse O2 O2 Flow FiO2 Mean Ox Delivery Rate 01/01 0643 97.4 73 20 98/56 95 CPAP 01/01 0014 70 96 01/01 0000 CPAP 12/31 2244 68 97 12/31 2147 98.2 69 18 100/66 95 12/31 1416 98.0 64 20 96/60 94 Room Air Intake & Output 01/01 1600 01/01 0800 01/01 0000 Intake Total 501.6 625.6 Output Total Balance 501.6 625.6 Intake, IV 381.6 175.6 Intake, Oral 120 450 Patient 222 lb Weight Weight Bed scale Measurement Method Physical Exam Other Physical Findings: General Appearance: well nourished, no apparent distress, alert, awake HEENT: NC/AT, anicteric sclera, MMM NECK: Supple, no JVD, trachea midline, RIJ TLC CARD: Normal S1/S2 w/o m/g/r; RRR PULM: CTA bilaterally ABD: Soft, NT, ND, BS+ NEURO: Awake and alert, CN II-XII grossly intact EXT: right BKA, normal pulses, no edema SKIN: pale Results Last 24 Hours of Lab Results: Laboratory Tests 01/01 12/31 0529 2300 Chemistry Sodium (137 - 145 mmol/L) 136 L Potassium (3.5 - 5.1 mmol/L) 4.2 Chloride (98 - 107 mmol/L) 99 Carbon Dioxide (22 - 30 mmol/L) 25 Anion Gap (5 - 16) 12 BUN (9 - 20 mg/dL) 40 H Creatinine (0.7 - 1.2 mg/dL) 5.5 *H Estimated GFR (>60 ml/min) 11 L BUN/Creatinine Ratio (7 - 25 %) 7.3 Coagulation APTT (25 - 37 SEC) 61 H 60 H Hematology CBC w Diff NO MAN DIFF REQ WBC (4.8 - 10.8 /CUMM) 4.8 RBC (4.70 - 6.10 /CUMM) 2.67 L Hgb (14.0 - 18.0 G/DL) 7.9 L Hct (42 - 52 %) 24.6 L MCV (80.0 - 94.0 FL) 92.1 MCH (27.0 - 31.0 PG) 29.6 MCHC (33.0 - 37.0 G/DL) 32.2 L RDW (11.5 - 14.5 %) 15.3 H Plt Count (130 - 400 /CUMM) 95 L MPV (7.4 - 10.4 FL) 9.8 Gran % (42.2 - 75.2 %) 53.1 Lymphocytes % (20.5 - 51.1 %) 38.3 Monocytes % (1.7 - 9.3 %) 4.4 Eosinophils % (0 - 5 %) 3.7 Basophils % (0.0 - 2.0 %) 0.5 Absolute Granulocytes (1.4 - 6.5 /CUMM) 2.5 Absolute Lymphocytes (1.2 - 3.4 /CUMM) 1.8 Absolute Monocytes (0.10 - 0.60 /CUMM) 0.2 Absolute Eosinophils (0.0 - 0.7 /CUMM) 0.2 Absolute Basophils (0.0 - 0.2 /CUMM) 0 Last 24 Hours of Brendan Results: SPEC #: [id number] BRIAN: 12/28/17 STATUS: COMP RECD: 12/28/[address]: Laron MARTINEZ, Kimmy SOURCE: BODY FLUID ENTR: 12/28/171353 [facility] DR: Karen MARTINEZ, Enma Merino SPDESC: KNEE R KENYON Tovar MD,Dottie Martinez MD,Clinton Sinclair ORDERED: BODY FLD CULTUR COMMENT: TINY AMT OF STUMP FLUID IN 10CC SALINE Procedure Result > GRAM STAIN Final 12/28/17-1538 WHITE BLOOD CELLS NONE OTHER NO ORGANISMS SEEN > BODY FLUID CULTURE Final 12/31/17-0921 NO GROWTH AFTER 3 DAYS Recent Imaging Studies: EXAMINATION: XR PORTABLE CHEST CLINICAL INFORMATION: Triple-lumen right IJ central line catheter placement COMPARISON: None TECHNIQUE: Portable frontal view of the chest was obtained. 5:28 PM FINDINGS: The base of the neck is not included in the study. There is a central line catheter with the tip at the caval atrial junction. There is no pneumothorax. Hazy opacity present at the left lung base with partial silhouetting of the diaphragm consistent with basilar atelectasis or infiltrate. Status post median sternotomy. The heart size is normal. The cardiac and the mediastinal contours are normal. IMPRESSION: Central port catheter tip at caval atrial junction. There is no pneumothorax. DICTATED BY: Jt Cee MD DATE/TIME DICTATED:12/30/171807 BLOOD COORDINATOR:SANDEEP DATE/TIME TRANSCRIBED:12/30/171807 Assessment/Plan ID Impression: 57-year-old man with a history of diabetes, coronary artery disease, status post angioplasty and stent over 3 months prior to admission, end-stage renal disease, maintained on hemodialysis Mondays, Wednesdays and Fridays via a left forearm fistula, status post a right BKA 8 years prior to admission, complicated by several infections of the stump secondary to MSSA, most recently 2-1/2 months prior to admission, with evidence of osteomyelitis at that time, status post I&D of the soft tissue with plans for AKA at a later date, and with a transthoracic echo revealing a possible mitral valve vegetation, treated with a 6 week course of Cefazolin, admitted on December 26 with lethargy and chills, found to be febrile with a normal white blood cell count and with blood cultures 2 positive for gram-positive cocci in clusters (MSSA) admitted 12/26 with sepsis. He has no obvious source but must suspect that this either represents a relapse of his endocarditis, in which case he will require valve replacement, though no vegetation was identified on his recent echocardiogram; appears less likely residual infection related to the right BKA stump (as local cx no growth and there is no evidence of inflammation around the stump), or another focus that may have been seeded from the recent bacteremia. Question LLL infiltrate (CXR 12/30) Suggestion: 1. Await YULIA early next week 2. F/U Vascular Surgery recom. 3. Continue Cefazolin 2 g IV after each dialysis started 12/27. 4. CBC, BMP, ESR on Tuesday.
[2018-01-01 14:47] VITALS: BP 100/60
--- NOTE | 2018-01-01 17:58 | PN- Cardiology ---
Subjective Subjective: patient remained stable. No significant cardiac symptoms. Objective Vital Signs and I&Os Vital Signs Date Time Temp Pulse Resp B/P B/P Pulse O2 O2 Flow FiO2 Mean Ox Delivery Rate 01/01 1447 97.8 74 14 100/60 95 Room Air 01/01 0643 97.4 73 20 98/56 95 CPAP 01/01 0014 70 96 01/01 0000 CPAP 12/31 2244 68 97 12/31 2147 98.2 69 18 100/66 95 Intake & Output 01/01 1600 01/01 0800 01/01 0000 12/31 1600 12/31 0000 Intake Total 831.6 501.6 625.6 100 412 320.4 Output Total 0 Balance 831.6 501.6 625.6 100 412 320.4 Intake, IV 381.6 381.6 175.6 412 80.4 Intake, Oral 450 120 450 100 0 240 Number 0 Bowel Movements Output, Urine 0 Patient 222 lb Weight Weight Bed scale Measurement Method Physical Exam: General Appearance: well developed/nourished, no apparent distress, alert, awake Head: atraumatic, normal appearance Neck: normal inspection Respiratory: normal breath sounds, quiet respiration, lungs clear Cardiovascular: regular rate/rhythm, systolic murmur Gastrointestinal: soft, non-tender Extremities: r. bka, R. TLC in place. dressing clean and intact Current Medications: Current Medications Sig/Bobo Start time Last Medication Dose Route Stop Time Status Admin Acetaminophen 650 MG Q4P PRN 12/26 2100 AC 12/26 PO 2326 Aspirin Buffered 81 MG DAILY 12/27 1000 AC 01/01 PO 0942 Atorvastatin Calcium 10 MG 12/27 170 AC 01/01 PO 174 Cefazolin Sodium 2 GM 01/02 1000 AC N/A 1 UNIT IV Cinacalcet 30 MG 12/27 1700 AC 01/01 PO 174 Clopidogrel Bisulfate 75 MG DAILY 12/27 1000 AC 01/01 PO 0942 Cyanocobalamin 1,000 MCG DAILY 12/27 1000 AC 01/01 PO 0942 Docusate Sodium 100 MG DAILY 12/27 1000 AC 01/01 PO 0942 Epoetin Jaron 3,000 UNIT DAILY NEEDED PRN 12/28 0700 AC 12/30 IV 1100 Epoetin Jaron 2,000 UNIT DAILY NEEDED PRN 12/28 0700 AC 12/30 IV 1100 Heparin Sodium 25,000 UNIT Q24H 12/30 1915 AC 01/01 (Porcine) IV 01/02 0600 1102 Sodium Chloride 500 ML Lidocaine/Prilocaine 1 GAVI DAILY PRN 12/28 0700 AC 12/28 TOP 0900 Multivitamins 1 TAB DAILY 12/27 1000 AC 01/01 PO 0942 Sevelamer Carbonate 2,400 MG WM 12/27 1200 AC 01/01 PO 1746 Results Last 48 Hrs of Labs/Mics: Laboratory Tests 01/01/18 0529: Anion Gap 12, Estimated GFR 11 L, BUN/Creatinine Ratio 7.3, APTT 61 H, CBC w Diff NO MAN DIFF REQ, RBC 2.67 L, MCV 92.1, MCH 29.6, MCHC 32.2 L, RDW 15.3 H , MPV 9.8, Gran % 53.1, Lymphocytes % 38.3, Monocytes % 4.4, Eosinophils % 3.7, Basophils % 0.5, Absolute Granulocytes 2.5, Absolute Lymphocytes 1.8, Absolute Monocytes 0.2, Absolute Eosinophils 0.2, Absolute Basophils 0 12/31/17 2300: APTT 60 H 12/31/17 1100: APTT 68 H 12/31/17 0308: Anion Gap 11, Estimated GFR 16 L, Glucose 94, Calcium 8.2 L, Phosphorus 2.9, Magnesium 2.0, Total Bilirubin 0.3, AST 10 L, ALT 22, Albumin 3.0 L, APTT 60 H, CBC w Diff NO MAN DIFF REQ, RBC 2.79 L, MCV 92.7, MCH 29.6, MCHC 32.0 L, RDW 15.2 H, MPV 10.0, Gran % 55.9, Lymphocytes % 35.2, Monocytes % 6.0, Eosinophils % 2.4, Basophils % 0.5, Absolute Granulocytes 2.5, Absolute Lymphocytes 1.6, Absolute Monocytes 0.3, Absolute Eosinophils 0.1, Absolute Basophils 0 Assessment/Plan Assessment/Plan Assessment: 1. Coronary disease by history status post coronary bypass surgery 2006 with complex PCI to the left main into the circumflex September 2017 with normal LV function 2. Hx of Hypertension 3. Peripheral arterial disease status post prior amputation 4. End-stage renal disease on dialysis 5. 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 Diabetes 7. Fever and chills with hypotension most likely secondary to sepsis. 8. Elevated troponins, minimal, not due to ACS 9. Intermittent atrial fibrillation possibly due to sepsis Recommendations: -Continue as per the ICU team -Cardiac status appears unchanged. -Nothing by mouth after midnight Tuesday for dialysis and subsequent YULIA on Tuesday. Continue telemetry? No
[2018-01-01 19:08] LABS: PTT 89 SEC (25-37)
[2018-01-01 21:08] VITALS: BP 100/60
[2018-01-02 05:35] VITALS: BP 86/50
[2018-01-02 05:46] VITALS: BP 90/56
--- NOTE | 2018-01-02 07:30 | PN- Housestaff ---
Fazal MARTINEZ,Sommer 01/02/18 0730: Subjective Follow-up For: Staph aureus sepsis, ruling out endocarditis Hypotension ESRD on dialysis Paroxysmal A.fib BKA Tele-Events Since Last Visit: Sinus bradycardia to normal sinus rhythm heart rate 59-87 Subjective: Patient was seen and examined today. Patient is currently in dialysis this morning. Patient's blood pressure this morning was in the 80s-90s systolic. Patient reports no lightheadedness, dizziness, chest pain, palpitations, fever/ chills, abdominal pain, nausea/vomiting. Per dialysis nurse patient's blood pressure is hovering in the 90s over 60s. Reports that likely patient may require repeat dialysis tomorrow as they are moving very little fluid today. Review of Systems Constitutional: Reports: no symptoms. Objective Last 24 Hrs of Vital Signs/I&O Vital Signs Date Time Temp Pulse Resp B/P B/P Pulse O2 O2 Flow FiO2 Mean Ox Delivery Rate 01/02 0546 72 90/56 01/02 0535 97.5 75 12 86/50 97 CPAP 01/01 2227 74 94 01/01 2108 98.4 77 20 100/60 94 01/01 1600 Room Air 01/01 1447 97.8 74 14 100/60 95 Room Air Intake & Output 01/02 1600 01/02 0800 01/02 0000 Intake Total 850 Output Total 0 Balance 850 Intake, IV 400 Intake, Oral 450 Number 0 Bowel Movements Output, Urine 0 Patient 207 lb Weight Physical Exam General Appearance: Alert, Oriented X3, Cooperative, No Acute Distress HEENT: Atraumatic, Mucous Membr. moist/pink Cardiovascular: Regular Rate, Normal S1, Normal S2 Lungs: Clear to Auscultation, Normal Air Movement Abdomen: Normal Bowel Sounds, Soft, No Tenderness Neurological: Normal Speech Extremities: No Clubbing, No Cyanosis, No Edema, Normal Pulses, No Tenderness/ Swelling, bka of right lower extremity with no tenderness, erythema or swelling. Current Medications: Current Medications Sig/Bobo Start time Last Medication Dose Route Stop Time Status Admin Acetaminophen 650 MG Q4P PRN 01/02 1645 AC PO Acetaminophen 650 MG Q4P PRN 12/26 2100 DC 12/26 PO 2326 Albumin Human 12.5 GM .Q30MIN PRN 01/02 1000 AC IV Aspirin Buffered 81 MG DAILY 01/03 1000 AC PO Aspirin Buffered 81 MG DAILY 12/27 1000 DC 01/01 PO 0942 Atorvastatin Calcium 10 MG 1700 01/02 1700 AC PO Atorvastatin Calcium 10 MG 1700 12/27 1700 DC 01/01 PO 1746 Cefazolin Sodium 2 GM 01/04 1000 AC N/A 1 UNIT IV Cefazolin Sodium 2 GM 01/02 1000 AC N/A 1 UNIT IV 01/04 0959 Cinacalcet 30 MG 01/02 1700 AC PO Cinacalcet 30 MG 17012/27 1700 DC 01/01 PO 1746 Clopidogrel Bisulfate 75 MG DAILY 01/03 1000 AC PO Clopidogrel Bisulfate 75 MG DAILY 12/27 1000 DC 01/01 PO 0942 Cyanocobalamin 1,000 MCG DAILY 01/03 1000 AC PO Cyanocobalamin 1,000 MCG DAILY 12/27 1000 DC 01/01 PO 0942 Docusate Sodium 100 MG DAILY 01/03 1000 AC PO Docusate Sodium 100 MG DAILY 12/27 1000 DC 01/01 PO 0942 Epoetin Jaron 2,000 UNIT DAILY NEEDED PRN 01/02 1645 AC IV Epoetin Jaron 3,000 UNIT DAILY NEEDED PRN 01/02 1645 AC IV Epoetin Jaron 2,000 UNIT DAILY NEEDED PRN 01/02 1330 DC IV Epoetin Jaron 3,000 UNIT DAILY NEEDED PRN 01/02 1330 DC IV Epoetin Jaron 3,000 UNIT DAILY NEEDED PRN 12/28 0700 DC 12/30 IV 1100 Epoetin Jaron 2,000 UNIT DAILY NEEDED PRN 12/28 0700 DC 12/30 IV 1100 Fentanyl Citrate 250 MCG .STK-MED ONE 01/02 1202 DC IM 01/02 1203 Fentanyl Citrate 100 MCG .STK-MED ONE 01/02 1202 DC IM 01/02 1203 Heparin Sodium 25,000 UNIT .STK-MED ONE 01/02 0554 DC (Porcine) IV 01/02 0555 Heparin Sodium 25,000 UNIT Q24H 12/30 1915 DC 01/02 (Porcine) IV 01/02 0600 0557 Sodium Chloride 500 ML Ketamine HCl 50 MG .STK-MED ONE 01/02 1057 DC IM 01/02 1058 Lidocaine 0 .STK-MED ONE 01/02 0905 DC TOP Lidocaine/Prilocaine 1 GAVI DAILY PRN 01/02 1645 AC TOP Lidocaine/Prilocaine 1 GAVI DAILY PRN 12/28 0700 DC 12/28 TOP 0900 Midazolam HCl 2 MG .STK-MED ONE 01/02 1057 DC IM 01/02 1058 Morphine Sulfate 2 MG Q4P PRN 01/02 1430 AC IV Morphine Sulfate 4 MG Q4P PRN 01/02 1430 AC IV Multivitamins 1 TAB DAILY 01/03 1000 AC PO Multivitamins 1 TAB DAILY 12/27 1000 DC 01/01 PO 0942 Phenylephrine HCl 40 MG Q24H 01/02 1715 DC 01/02 Sodium Chloride 250 ML IV 1630 Sevelamer Carbonate 2,400 MG WM 01/02 1700 AC PO Sevelamer Carbonate 2,400 MG WM 12/27 1200 DC 01/01 PO 1746 Last 24 Hrs of Lab/Brendan Results Last 24 Hrs of Labs/Mics: Laboratory Tests 01/02/18 0630: Anion Gap 14, Estimated GFR 8 L, BUN/Creatinine Ratio 7.2, APTT > 120 *H, CBC w Diff NO MAN DIFF REQ, RBC 2.65 L, MCV 92.9, MCH 30.8, MCHC 33.1, RDW 15.4 H, MPV 9.5, Gran % 53.9, Lymphocytes % 37.2, Monocytes % 5.0, Eosinophils % 3.3, Basophils % 0.6, Absolute Granulocytes 2.7, Absolute Lymphocytes 1.9, Absolute Monocytes 0.3, Absolute Eosinophils 0.2, Absolute Basophils 0, ESR Westergren 25 H Microbiology 01/02 1700 UPPER RESP: Surveillance Culture - RECD 01/02 1700 GI: Surveillance Culture - RECD 01/02 1315 EXTREMITIE: Gross Specimen Examination - RECD 01/02 131 EXTREMITIE: Gram Stain - RECD 01/02 131 EXTREMITIE: Gross Specimen Examination - RECD 01/02 1315 EXTREMITIE: Gram Stain - RECD Assessment/Plan Assessment: Patient is a 57-year-old male with past medical history significant for peripheral arterial disease status post right [id number] amputation, end- stage renal disease on hemodialysis, coronary artery disease status post PCI and 1 drug-eluting stent in the left main circumflex artery (September 2017) and status post quadruple CABG (2006), diabetes, history of obstructive sleep apnea on CPAP at night, chronic anemia, most recent admission for septic arthritis and staph aureus sepsis, mitral valve endocarditis, osteomyelitis, history of C. difficile presented this admission after he was found to be hypotensive and tachycardic during dialysis with report of recent fatigue and dyspnea. Patient was recently transferred from ICU to telemetry. Patient was initially admitted for sepsis requiring ICU admission due to pressor support, atrial fibrillation, healthcare associated pneumonia. Patient had a triple lumen catheter placed on 12/30 however pressors were discontinued and patient was stable enough to be transferred to telemetry. Today patient remains slightly hypotensive however is otherwise stable. Patient reports no symtpoms. Patient's blood cultures from December 26 grew pansensitive staph aureus. Repeat blood cultures show no growth to date. Patient has been on IV cefazolin 2 grams after each hemodialysis treatment. Patient is currently being followed by ID, nephrology, cardiology and vascular surgery. Patient had an echo which was nondiagnostic for possible vegetations. Today patient remained asymptomatic. Patient was hypotensive in the 80s over 50s to 90s over 60s during dialysis. IV heparin was stopped today for surgery. Patient went for a YULIA which showed no vegetations however did show severe atrial regurgitation and possible perforation within the posterior leaflet of the mitral valve. Patient underwent of right AKA. Patient was seen and PACU and remained hypotensive requiring a tomy drip. It was reported that patient lost 350cc of blood and was given 1 pRBC postop. Due to patient's continued hypotension when the tomy drip was stopped temporarily, patient was transferred to the ICU for closer monitoring. 1. Staph aureus sepsis 2. Atrial fibrillation currently in normal sinus rhythm on IV heparin drip 3. End-stage renal disease on hemodialysis 4. S/P Right BKA 5. Chronic anemia on Epogen 6. CAD s/p stent and CABG 7. Chronic constipation Plan: - Transferred to ICU today - Cardiology, nephrology, infectious disease consulted. Appreciate recommendations - Continue IV cefazolin 2 g after each hemodialysis - IV heparin discontinued today. Per surgery, it may be restarted tomorrow. - Continue Epojen - Continue Sensipar - Continue Sevelamer - Continue Atorvastatin - Continue Aspirin - Continue Plavix - Continue vitamin b12, multivitamin - Continue colace - Next hemodialysis on 01/04. - Continue to follow up blood cultures - Repeat CBC, BEP and ESR tomorrow - Further management per ICU team DVT PPx: IV heparin held today for surgery. Diet: NPO for YULIA and surgery Code: Full code Problem List: 1. Sepsis 2. Osteomyelitis 3. Renal failure 4. A-fib Pain Ratin Pain Location: n/a Pain Goal: Remain pain free Pain Plan: n/a Tomorrow's Labs & Rationales: cbc - infection bep - renal failure on dialysis Joshua Merchant MD 01/02/182121: Attending MD Review Statement Attending Statement Attending MD Statement: examined this patient, discuss w/resident/PA/COMPUTER PROCESSING SCHEDULER, agreed w/resident/PA/COMPUTER PROCESSING SCHEDULER, reviewed EMR data (avail), discussed with nursing, discussed with case mgmt, reviewed images, amended to note Attending Assessment/Plan: The patient was seen and discussed with house staff. Appreciate Cardiology, Nephrology, and Surgical input. S/P dialysis (with transfusion PRBC), YULIA (no vegetations seen), and revision of right BKA to AKA today. Requiring pressors in recovery room. Will go to ICU post operatively. Dr. Alvarenga aware and will assume care in ICU. Continue to monitor VS closely. Antibiotics as per ID.
[2018-01-02 07:53] LABS: ABSOLUTE BASOPHIL COUNT 0 /CUMM (0.0-0.2); ABSOLUTE EOSINOPHIL COUNT 0.2 /CUMM (0.0-0.7); ABSOLUTE GRANULOCYTE CT 2.7 /CUMM (1.4-6.5); ABSOLUTE LYMPH COUNT 1.9 /CUMM (1.2-3.4); ABSOLUTE MONOCYTE COUNT 0.3 /CUMM (0.10-0.60); BASOPHIL % 0.6 % (0.0-2.0); EOSINOPHIL % 3.3 % (0-5); HEMATOCRIT 24.6 % (42-52); MEAN CORPUSCULAR HGB 30.8 PG (27.0-31.0); MEAN CORPUSCULAR HGB CONC 33.1 G/DL (33.0-37.0); MEAN CORPUSCULAR VOLUME 92.9 FL (80.0-94.0); MEAN PLATELET VOLUME 9.5 FL (7.4-10.4); RBC DISTRIBUTION WIDTH 15.4 % (11.5-14.5); RED BLOOD CELL CT 2.65 /CUMM (4.70-6.10); WHITE BLOOD CELL COUNT 5.1 /CUMM (4.8-10.8)
[2018-01-02 08:31] LABS: PTT > 120 SEC (25-37)
[2018-01-02 08:45] LABS: GRANULOCYTE % 53.9 % (42.2-75.2)
[2018-01-02 08:47] LABS: PLATELET COUNT 92 /CUMM (130-400)
--- NOTE | 2018-01-02 09:29 | PN- Nephrology ---
Assessment/Plan Nephrology Assessment: 1. MSSA bacteremia . He is to have a transesophageal echo this afternoon to dialysis or I should say late this morning. 2. End-stage renal disease on hemodialysis. Next Hemodialysis will be on Tuesday 3. 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 I'm told is for the OR this afternoon 4. Hypotension during dialysis will use salt poor albumin in order to report blood pressure Suggestion: 1. We'll offer hemodialysis again on Tuesday 2. We will increase his EPO dose next treatment to 5000. Subjective Subjective: Patient seen with hemodialysis in progress he appears no complaints Objective Vital Signs and I&Os Vital Signs Date Time Temp Pulse Resp B/P B/P Pulse O2 O2 Flow FiO2 Mean Ox Delivery Rate 01/02 0546 72 90/56 01/02 0535 97.5 75 12 86/50 97 CPAP 01/01 2227 74 94 01/01 2108 98.4 77 20 100/60 94 01/01 1600 Room Air 01/01 1447 97.8 74 14 100/60 95 Room Air Intake & Output 01/02 1600 01/02 0400 01/01 1600 01/01 0400 12/31 1600 12/31 0400 Intake Total 850 1333.2 625.6 512 320.4 Output Total 0 0 Balance 850 1333.2 625.6 512 320.4 Intake, IV 400 763.2 175.6 412 80.4 Intake, Oral 450 570 450 100 240 Number 0 0 Bowel Movements Output, Urine 0 0 Patient 207 lb 222 lb Weight Weight Bed scale Measurement Method Physical Exam: General Appearance: alert, awake, chronically ill-appearing gentleman in no acute distress Head: atraumatic, normal appearance Ears, Nose, Throat: hearing grossly normal Neck: normal inspection Respiratory: normal breath sounds Cardiovascular: regular rate/rhythm Abdomen: normal bowel sounds, soft, non-tender Extremities: status post right BKA Neurologic/Psychiatric: awake, alert, oriented x 3 Skin: intact, no rash or concerning lesions Current Medications: Current Medications Sig/Bobo Start time Last Medication Dose Route Stop Time Status Admin Acetaminophen 650 MG Q4P PRN 12/26 2100 AC 12/26 PO 2326 Aspirin Buffered 81 MG DAILY 12/27 1000 AC 01/01 PO 0942 Atorvastatin Calcium 10 MG 1700 12/27 1700 AC 01/01 PO 1746 Cefazolin Sodium 2 GM 01/02 1000 AC N/A 1 UNIT IV Cinacalcet 30 MG 1700 12/27 1700 AC 01/01 PO 1746 Clopidogrel Bisulfate 75 MG DAILY 12/27 1000 AC 01/01 PO 0942 Cyanocobalamin 1,000 MCG DAILY 12/27 1000 AC 01/01 PO 0942 Docusate Sodium 100 MG DAILY 12/27 1000 AC 01/01 PO 0942 Epoetin Jaron 3,000 UNIT DAILY NEEDED PRN 12/28 0700 AC 12/30 IV 1100 Epoetin Jaron 2,000 UNIT DAILY NEEDED PRN 12/28 0700 AC 12/30 IV 1100 Heparin Sodium 25,000 UNIT .STK-MED ONE 01/01 1100 DC (Porcine) IV 01/01 1101 Heparin Sodium 25,000 UNIT Q24H 12/30 1915 DC 01/02 (Porcine) IV 01/02 0600 0557 Sodium Chloride 500 ML Lidocaine 0 .STK-MED ONE 01/02 0905 DC TOP Lidocaine/Prilocaine 1 GAVI DAILY PRN 12/28 0700 AC 12/28 TOP 0900 Multivitamins 1 TAB DAILY 12/27 1000 AC 01/01 PO 0942 Sevelamer Carbonate 2,400 MG WM 12/27 1200 AC 01/01 PO 1746 Results Pertinent Lab Results: Laboratory Tests 01/02 01/01 0630 1830 Chemistry Sodium (137 - 145 mmol/L) 134 L Potassium (3.5 - 5.1 mmol/L) 4.4 Chloride (98 - 107 mmol/L) 97 L Carbon Dioxide (22 - 30 mmol/L) 23 Anion Gap (5 - 16) 14 BUN (9 - 20 mg/dL) 51 H Creatinine (0.7 - 1.2 mg/dL) 7.1 *H Estimated GFR (>60 ml/min) 8 L BUN/Creatinine Ratio (7 - 25 %) 7.2 Coagulation APTT (25 - 37 SEC) > 120 *H 89 H Hematology CBC w Diff NO MAN DIFF REQ WBC (4.8 - 10.8 /CUMM) 5.1 RBC (4.70 - 6.10 /CUMM) 2.65 L Hgb (14.0 - 18.0 G/DL) 8.2 L Hct (42 - 52 %) 24.6 L MCV (80.0 - 94.0 FL) 92.9 MCH (27.0 - 31.0 PG) 30.8 MCHC (33.0 - 37.0 G/DL) 33.1 RDW (11.5 - 14.5 %) 15.4 H Plt Count (130 - 400 /CUMM) 92 L MPV (7.4 - 10.4 FL) 9.5 Gran % (42.2 - 75.2 %) 53.9 Lymphocytes % (20.5 - 51.1 %) 37.2 Monocytes % (1.7 - 9.3 %) 5.0 Eosinophils % (0 - 5 %) 3.3 Basophils % (0.0 - 2.0 %) 0.6 Absolute Granulocytes (1.4 - 6.5 /CUMM) 2.7 Absolute Lymphocytes (1.2 - 3.4 /CUMM) 1.9 Absolute Monocytes (0.10 - 0.60 /CUMM) 0.3 Absolute Eosinophils (0.0 - 0.7 /CUMM) 0.2 Absolute Basophils (0.0 - 0.2 /CUMM) 0 ESR Westergren (0 - 10 MM) 25 H 01/01 12/31 12/31 0529 2300 1100 Chemistry Sodium (137 - 145 mmol/L) 136 L Potassium (3.5 - 5.1 mmol/L) 4.2 Chloride (98 - 107 mmol/L) 99 Carbon Dioxide (22 - 30 mmol/L) 25 Anion Gap (5 - 16) 12 BUN (9 - 20 mg/dL) 40 H Creatinine (0.7 - 1.2 mg/dL) 5.5 *H Estimated GFR (>60 ml/min) 11 L BUN/Creatinine Ratio (7 - 25 %) 7.3 Coagulation APTT (25 - 37 SEC) 61 H 60 H 68 H Hematology CBC w Diff NO MAN DIFF REQ WBC (4.8 - 10.8 /CUMM) 4.8 RBC (4.70 - 6.10 /CUMM) 2.67 L Hgb (14.0 - 18.0 G/DL) 7.9 L Hct (42 - 52 %) 24.6 L MCV (80.0 - 94.0 FL) 92.1 MCH (27.0 - 31.0 PG) 29.6 MCHC (33.0 - 37.0 G/DL) 32.2 L RDW (11.5 - 14.5 %) 15.3 H Plt Count (130 - 400 /CUMM) 95 L MPV (7.4 - 10.4 FL) 9.8 Gran % (42.2 - 75.2 %) 53.1 Lymphocytes % (20.5 - 51.1 %) 38.3 Monocytes % (1.7 - 9.3 %) 4.4 Eosinophils % (0 - 5 %) 3.7 Basophils % (0.0 - 2.0 %) 0.5 Absolute Granulocytes (1.4 - 6.5 /CUMM) 2.5 Absolute Lymphocytes (1.2 - 3.4 /CUMM) 1.8 Absolute Monocytes (0.10 - 0.60 /CUMM) 0.2 Absolute Eosinophils (0.0 - 0.7 /CUMM) 0.2 Absolute Basophils (0.0 - 0.2 /CUMM) 0 12/31 0308 Chemistry Sodium (137 - 145 mmol/L) 139 Potassium (3.5 - 5.1 mmol/L) 3.8 Chloride (98 - 107 mmol/L) 101 Carbon Dioxide (22 - 30 mmol/L) 27 Anion Gap (5 - 16) 11 BUN (9 - 20 mg/dL) 26 H Creatinine (0.7 - 1.2 mg/dL) 4.0 H Estimated GFR (>60 ml/min) 16 L Glucose (65 - 99 mg/dL) 94 Calcium (8.4 - 10.2 mg/dL) 8.2 L Phosphorus (2.5 - 4.5 mg/dL) 2.9 Magnesium (1.6 - 2.3 mg/dL) 2.0 Total Bilirubin (0.2 - 1.3 mg/dL) 0.3 AST (17 - 59 U/L) 10 L ALT (21 - 72 U/L) 22 Albumin (3.5 - 5.0 g/dL) 3.0 L Coagulation APTT (25 - 37 SEC) 60 H Hematology CBC w Diff NO MAN DIFF REQ WBC (4.8 - 10.8 /CUMM) 4.5 L RBC (4.70 - 6.10 /CUMM) 2.79 L Hgb (14.0 - 18.0 G/DL) 8.3 L Hct (42 - 52 %) 25.9 L MCV (80.0 - 94.0 FL) 92.7 MCH (27.0 - 31.0 PG) 29.6 MCHC (33.0 - 37.0 G/DL) 32.0 L RDW (11.5 - 14.5 %) 15.2 H Plt Count (130 - 400 /CUMM) 101 L MPV (7.4 - 10.4 FL) 10.0 Gran % (42.2 - 75.2 %) 55.9 Lymphocytes % (20.5 - 51.1 %) 35.2 Monocytes % (1.7 - 9.3 %) 6.0 Eosinophils % (0 - 5 %) 2.4 Basophils % (0.0 - 2.0 %) 0.5 Absolute Granulocytes (1.4 - 6.5 /CUMM) 2.5 Absolute Lymphocytes (1.2 - 3.4 /CUMM) 1.6 Absolute Monocytes (0.10 - 0.60 /CUMM) 0.3 Absolute Eosinophils (0.0 - 0.7 /CUMM) 0.1 Absolute Basophils (0.0 - 0.2 /CUMM) 0
--- NOTE | 2018-01-02 11:57 | PN- Cardiology ---
Subjective Subjective: The patient is awake, alert The events of the last 24 hours as well as telemetry were reviewed. Review of Systems: The review of systems is negative for chest pains, palpitations nor lightheadedness. The remainder of the 14 point review of systems is noncontributory with the exception of above. Objective Vital Signs and I&Os Vital Signs Date Time Temp Pulse Resp B/P B/P Pulse O2 O2 Flow FiO2 Mean Ox Delivery Rate 01/02 0546 72 90/56 01/02 0535 97.5 75 12 86/50 97 CPAP 01/01 2227 74 94 01/01 2108 98.4 77 20 100/60 94 01/01 1600 Room Air 01/01 1447 97.8 74 14 100/60 95 Room Air Intake & Output 01/02 1600 01/02 0801/02 0000 01/01 1600 01/01 0800 01/01 0000 Intake Total 850 831.6 501.6 625.6 Output Total 0 Balance 850 831.6 501.6 625.6 Intake, IV 400 381.6 381.6 175.6 Intake, Oral 450 450 120 450 Number 0 Bowel Movements Output, Urine 0 Patient 207 lb 222 lb Weight Weight Bed scale Measurement Method Physical Exam: General: Nontoxic, no apparent distress. HEENT: Sclera and conjunctiva within normal limits, without xanthelasmas. Neck: Carotids 2+ without bruits. Respiratory: Clear to auscultation, air movement is good, without accessory respiratory muscle use. Heart: Regular rate and rhythm, without murmurs, without JVD. Abdomen: Soft, nontender, no masses, normoactive bowel sounds. Extremities: Without clubbing, cyanosis, without edema, status post right BKA. Neuro: Nonfocal exam, strength, 5 out of 5 Skin: Within normal limits without lesions. Psych: Mood and affect: Normal Current Medications: Current Medications Sig/Bobo Start time Last Medication Dose Route Stop Time Status Admin Acetaminophen 650 MG Q4P PRN 12/26 2100 AC 12/26 PO 2326 Albumin Human 12.5 GM .Q30MIN PRN 01/02 1000 AC IV Aspirin Buffered 81 MG DAILY 12/27 1000 AC 01/01 PO 0942 Atorvastatin Calcium 10 MG 1700 12/27 1700 AC 01/01 PO 1746 Cefazolin Sodium 2 GM 01/02 1000 AC N/A 1 UNIT IV Cinacalcet 30 MG 1700 12/27 1700 AC 01/01 PO 1746 Clopidogrel Bisulfate 75 MG DAILY 12/27 1000 AC 01/01 PO 0942 Cyanocobalamin 1,000 MCG DAILY 12/27 1000 AC 01/01 PO 0942 Docusate Sodium 100 MG DAILY 12/27 1000 AC 01/01 PO 0942 Epoetin Jaron 3,000 UNIT DAILY NEEDED PRN 12/28 0700 AC 12/30 IV 1100 Epoetin Jaron 2,000 UNIT DAILY NEEDED PRN 12/28 0700 AC 12/30 IV 1100 Heparin Sodium 25,000 UNIT Q24H 12/30 1915 DC 01/02 (Porcine) IV 01/02 0600 0557 Sodium Chloride 500 ML Lidocaine 0 .STK-MED ONE 01/02 09 CO TOP Lidocaine/Prilocaine 1 GAVI DAILY PRN 12/28 0700 AC 12/28 TOP 0900 Multivitamins 1 TAB DAILY 12/27 1000 AC 01/01 PO 0942 Sevelamer Carbonate 2,400 MG WM 12/27 1200 AC 01/01 PO 1746 Results Last 48 Hrs of Labs/Mics: Laboratory Tests 01/02/18 0630: Anion Gap 14, Estimated GFR 8 L, BUN/Creatinine Ratio 7.2, APTT > 120 *H, CBC w Diff NO MAN DIFF REQ, RBC 2.65 L, MCV 92.9, MCH 30.8, MCHC 33.1, RDW 15.4 H, MPV 9.5, Gran % 53.9, Lymphocytes % 37.2, Monocytes % 5.0, Eosinophils % 3.3, Basophils % 0.6, Absolute Granulocytes 2.7, Absolute Lymphocytes 1.9, Absolute Monocytes 0.3, Absolute Eosinophils 0.2, Absolute Basophils 0, ESR Westergren 25 H 01/01/18 1830: APTT 89 H 01/01/18 0529: Anion Gap 12, Estimated GFR 11 L, BUN/Creatinine Ratio 7.3, APTT 61 H, CBC w Diff NO MAN DIFF REQ, RBC 2.67 L, MCV 92.1, MCH 29.6, MCHC 32.2 L, RDW 15.3 H , MPV 9.8, Gran % 53.1, Lymphocytes % 38.3, Monocytes % 4.4, Eosinophils % 3.7, Basophils % 0.5, Absolute Granulocytes 2.5, Absolute Lymphocytes 1.8, Absolute Monocytes 0.2, Absolute Eosinophils 0.2, Absolute Basophils 0 12/31/17 2300: APTT 60 H Assessment/Plan Assessment/Plan 1. Coronary disease by history status post coronary bypass surgery 2006 with complex PCI to the left main into the circumflex September 2017 with normal LV function 2. Hx of Hypertension 3. Peripheral arterial disease status post prior amputation 4. End-stage renal disease on dialysis 5. 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 Diabetes 7. Fever and chills with hypotension most likely secondary to sepsis. 8. Elevated troponins, minimal, not due to ACS 9. Intermittent atrial fibrillation possibly due to sepsis Coronary artery disease: The patient has known coronary artery disease, and a stable in regards to the same. He will continue his current medication regimen. A beta debbi will be initiated if able to tolerate from a blood pressure standpoint. Bacteremia: A YULIA performed today demonstrated no vegetations. We will proceed with vascular surgery as planned. Atrial fibrillation: The patient has atrial fibrillation. Given the results of the YULIA demonstrating moderate to severe agitation, this is a likely etiology. Will require anticoagulation post surgery and further consideration for valvular repair Continue telemetry? Yes
--- NOTE | 2018-01-02 12:33 | ECHOCARDIOGRAM REPORT ---
YOANA QUEZADA Age: 57 : Gender: M Exam Date: 01/02/2018 11:05 Exam Location: [facility] Ht (in): 76 Wt (lb): 207 BSA: 2.25 BP: 90 / 60 Ordering Physician: Kimmy Larry MD Referring Physician: Kimmy Larry MD Technologist: Hugo Russell [facility] Room Number: 101-1 Indications: INFECTIVE ENDOCARDITIS Rhythm: Technical Quality: good Medications Ease of Transducer Insertion Complications None Technical Difficulty None FINDINGS Left Ventricle Normal LV chamber size, wall thickness and systolic function. The estimated LVEF is 55%. There are no focal wall motion of modalities. 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 Mitral Valve The mitral valve is thickened and has poor coaptation. There is moderate mitral annular calcification. There is a possible perforation seen within the posterior leaflet. There is severe mitral regurgitation. No vegetations are seen. Aortic Valve Trileaflet aortic valve with mildly thickened leaflets. There is mild aortic insufficiency. Tricuspid Valve Grossly normal appearing tricuspid valve leaflets structure and function there is mild tricuspid regurgitation. Pulmonic Valve Normal appearing pulmonic valve Pericardium No pericardial effusion is seen Great Vessels Normal appearing great vessels CONCLUSIONS Normal LV chamber size, wall thickness and systolic function. The estimated LVEF is 55%. There are no focal wall motion of modalities. The mitral valve is thickened and has poor coaptation. There is moderate mitral annular calcification. There is a possible perforation seen within the posterior leaflet. There is severe mitral regurgitation. No vegetations are seen. No cardiac vegetations are seen. Nic Keenan M.D. (Electronically Signed) Final Date: 02 January 2018 12:32 MEASUREMENTS (Male / Female) Normal Values
--- NOTE | 2018-01-02 14:44 | PN- Vascular Surgery ---
Subjective Subjective: Post op check Pt arrived in PACU on tomy drip Post op Right revision BKA to AKA Blood loss estimated at 350cc 1Unit PRBC has been ordered - awaiting arrival Has required tomy throughout the case Currently sleepy but awakens, no complaints Objective Vital Signs and I&Os Vital Signs Date Time Temp Pulse Resp B/P B/P Pulse O2 O2 Flow FiO2 Mean Ox Delivery Rate 01/02 0546 72 90/56 01/02 0535 97.5 75 12 86/50 97 CPAP 01/01 2227 74 94 01/01 2108 98.4 77 20 100/60 94 01/01 1600 Room Air 01/01 1447 97.8 74 14 100/60 95 Room Air Intake & Output 01/02 1600 01/02 0800 01/02 0000 01/01 1600 01/01 0800 01/01 0000 Intake Total 200 850 831.6 501.6 625.6 Output Total 0 Balance 200 850 831.6 501.6 625.6 Intake, 200 Dialysate Intake, IV 400 381.6 381.6 175.6 Intake, Oral 450 450 120 450 Number 0 Bowel Movements Output, Urine 0 Patient 207 lb 222 lb Weight Weight Bed scale Measurement Method Physical Exam: bp 122/56 - a line HR 70's regular RR 18 Sat 92% on 4LNC General: sleepy but awakens and responds Chest: clear anteriorly bilaterally Ext: R AKA stump dressed, dry, elevated Assessment/Plan Assessment/Plan 57yo male s/p 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
--- NOTE | 2018-01-02 15:18 | Operative Report ---
Operative/Inv Procedure Report Surgery Date: 01/02/18 Name of Procedure: Right above-knee amputation Pre-Operative Diagnosis: Sepsis with presumed source as the right below-knee amputation site Post-Operative Diagnosis: Sepsis with presumed source as the right below-knee amputation site Estimated Blood Loss: 350 cc Surgeon/Traffic Court Referee: Bunny Munguia MD Anesthesia: general endotracheal tube Specimens: Proximal Bone culture & marrow culture sent separately for examination /BKA specimen sent to pathology Microbiology: Proximal Bone culture & marrow culture sent separately for examination /BKA specimen sent to pathology Complications: None Condition: Stable to PACU Operative Indication: 57-year-old male with a history of sepsis. This has occurred on multiple occasions including one year ago, 3-4 months ago and on this last admission. Patient has had an extensive workup including pulmonary imaging as well as recent transesophageal echo. The YULIA has been negative for signs of endocarditis. He has had a positive bone culture and fluid culture previously from the right below-knee amputation site. This is his presumed source of sepsis. Patient is being taken for revision to an above-knee amputation due to this being an infective source which is a threat to his life. Risks benefits and alternatives were explained to the patient including poor ambulation status, bleeding infection pain scar and . He proceeded to consent to the operation. Operative/Procedure Note Note: Patient was brought to the operating room and prepped and draped in the usual sterile surgical fashion. A timeout was held in accordance with [facility] policy. After preoperative antibiotic was administered a fishmouth incision was fashioned. Sharp dissection was carried down through the skin and subcutaneous tissue with a 15 blade and Bovie electrocautery. The muscle was transected with cautery and hemostasis was achieved with silk sutures and ties. The bone was revealed and using a periosteal elevator this was dissected free proximally and distally. It jiggly saw was then brought into the field. This was used to transect the femur. It was then elevated out of the field with a bone hook. Using fine dissection the popliteal artery, nerve and vein was dissected free. They were circumferentially controlled and ligated with a silk stitch and tie proximally and distally. Hemostasis was noted to be excellent The rest of the limb was then transected and passed off the field. A bone marrow culture and a piece of bone proximally was sent for culture. Hemostasis was then achieved with Bovie electrocautery as well as spray thrombin. The wound was copiously irrigated and prepared for closure. The deep fascial layer was closed with 20 and 3-0 Vicryl sutures. Hemostasis was noted to be adequate. The subcutaneous and dermal layers were closed with Vicryl sutures. Skin was closed with nylon sutures and skin [place]. The wound was dressed with Kerlix and an Shay wrap as well as Xeroform. The patient tolerated the procedure well and was transferred to the recovery area in stable extubated week and alert. CC: Kathryn MARTINEZ,Sukhi Sinclair; Chase MARTINEZ,Tam Christensen
[2018-01-02 16:00] VITALS: BP 140/52
[2018-01-02 23:59] VITALS: BP 96/52
[2018-01-03 05:03] LABS: ABSOLUTE BASOPHIL COUNT 0 /CUMM (0.0-0.2); ABSOLUTE EOSINOPHIL COUNT 0.1 /CUMM (0.0-0.7); ABSOLUTE GRANULOCYTE CT 3.1 /CUMM (1.4-6.5); ABSOLUTE LYMPH COUNT 0.9 /CUMM (1.2-3.4); ABSOLUTE MONOCYTE COUNT 0.2 /CUMM (0.10-0.60); BASOPHIL % 0.5 % (0.0-2.0); EOSINOPHIL % 2.6 % (0-5); GRANULOCYTE % 70.3 % (42.2-75.2); HEMATOCRIT 22.9 % (42-52); MEAN CORPUSCULAR HGB 30.8 PG (27.0-31.0); MEAN CORPUSCULAR HGB CONC 33.1 G/DL (33.0-37.0); MEAN PLATELET VOLUME 9.3 FL (7.4-10.4); PLATELET COUNT 118 /CUMM (130-400); RBC DISTRIBUTION WIDTH 15.5 % (11.5-14.5); RED BLOOD CELL CT 2.47 /CUMM (4.70-6.10); WHITE BLOOD CELL COUNT 4.5 /CUMM (4.8-10.8)
[2018-01-03 08:00] VITALS: BP 102/50
--- NOTE | 2018-01-03 09:08 | PN- Vascular Surgery ---
Subjective Subjective: pain is controlled. no co phantom pain. no bleeding through dressing. Objective Vital Signs and I&Os Vital Signs Date Time Temp Pulse Resp B/P B/P Pulse O2 O2 Flow FiO2 Mean Ox Delivery Rate 01/03 800 97.7 71 18 102/50 98 Nasal 1.0L Cannula 01/03 08 98 Nasal 1.0L Cannula 01/03 0556 72 95 01/03 0400 CPAP 01/03 0311 70 97 01/03 0013 77 96 01/03 0000 97 CPAP 01/02 2359 97.0 74 18 96/52 97 CPAP 01/02 2359 97.0 74 18 96/52 97 CPAP 01/02 2205 75 97 01/02 2000 99 Nasal 1.0L Cannula 01/02 1600 97.4 65 16 140/52 100 Nasal 2.0L Cannula Intake & Output 01/03 1600 01/03 0800 01/03 0000 01/02 1600 01/02 0800 01/02 0000 Intake Total 40 30 200 850 Output Total 0 0 0 Balance 40 30 200 850 Intake, 200 Dialysate Intake, IV 40 30 400 Intake, Oral 0 450 Number 0 Bowel Movements Output, Urine 0 0 0 Patient 207 lb Weight Physical Exam: wdwn mildly drowsy no resp distress RLE AKA site dressing/daisy bandage in place, cdi. Results Last 48 Hours of Labs: Laboratory Tests 01/03 01/02 0425 0630 Chemistry Sodium (137 - 145 mmol/L) 137 134 L Potassium (3.5 - 5.1 mmol/L) 4.1 4.4 Chloride (98 - 107 mmol/L) 101 97 L Carbon Dioxide (22 - 30 mmol/L) 27 23 Anion Gap (5 - 16) 9 14 BUN (9 - 20 mg/dL) 22 H 51 H Creatinine (0.7 - 1.2 mg/dL) 4.3 H 7.1 *H Estimated GFR (>60 ml/min) 14 L 8 L BUN/Creatinine Ratio (7 - 25 %) 7.2 Glucose (65 - 99 mg/dL) 72 Calcium (8.4 - 10.2 mg/dL) 8.4 Phosphorus (2.5 - 4.5 mg/dL) 4.2 Magnesium (1.6 - 2.3 mg/dL) 1.9 Total Bilirubin (0.2 - 1.3 mg/dL) 0.5 AST (17 - 59 U/L) 243 H ALT (21 - 72 U/L) 123 H Albumin (3.5 - 5.0 g/dL) 2.8 L Coagulation APTT (25 - 37 SEC) > 120 *H Hematology CBC w Diff NO MAN DIFF REQ NO MAN DIFF REQ WBC (4.8 - 10.8 /CUMM) 4.5 L 5.1 RBC (4.70 - 6.10 /CUMM) 2.47 L 2.65 L Hgb (14.0 - 18.0 G/DL) 7.6 L 8.2 L Hct (42 - 52 %) 22.9 L 24.6 L MCV (80.0 - 94.0 FL) 93.0 92.9 MCH (27.0 - 31.0 PG) 30.8 30.8 MCHC (33.0 - 37.0 G/DL) 33.1 33.1 RDW (11.5 - 14.5 %) 15.5 H 15.4 H Plt Count (130 - 400 /CUMM) 118 L 92 L MPV (7.4 - 10.4 FL) 9.3 9.5 Gran % (42.2 - 75.2 %) 70.3 53.9 Lymphocytes % (20.5 - 51.1 %) 21.1 37.2 Monocytes % (1.7 - 9.3 %) 5.5 5.0 Eosinophils % (0 - 5 %) 2.6 3.3 Basophils % (0.0 - 2.0 %) 0.5 0.6 Absolute Granulocytes (1.4 - 6.5 /CUMM) 3.1 2.7 Absolute Lymphocytes (1.2 - 3.4 /CUMM) 0.9 L 1.9 Absolute Monocytes (0.10 - 0.60 /CUMM) 0.2 0.3 Absolute Eosinophils (0.0 - 0.7 /CUMM) 0.1 0.2 Absolute Basophils (0.0 - 0.2 /CUMM) 0 0 ESR Westergren (0 - 10 MM) 25 H 01/01 1830 Coagulation APTT (25 - 37 SEC) 89 H Assessment/Plan Assessment/Plan POD1 sp R BKA revision to AKA for presumed OM hep drip may restart May cont anti platelets as pre-op Elevate R AKA stump Reinforce dressing as needed - to be changed pod 3 or earlier if needed
--- NOTE | 2018-01-03 09:44 | PN- Resident CRCU ---
See Addendum Cricket MARTINEZ,Cathy 01/03/18 0944: Subjective HPI/CRCU Issues: Hypotension Sepsis s/p R AKA 24 Hour Events: Pt seen and examined. Complains of pain 5 out of 10. Denies any fevers chills chest pain or shortness of breath abdominal pain headache or dizziness. Objective Vital Signs & I&O Last 8 Hrs of Vitals and I&O: Vital Signs Date Time Temp Pulse Resp B/P B/P Pulse O2 O2 Flow FiO2 Mean Ox Delivery Rate 01/03 0800 97.7 71 18 102/50 98 Nasal 1.0L Cannula 01/03 0800 98 Nasal 1.0L Cannula 01/03 0556 72 95 01/03 0400 CPAP 01/03 0311 70 97 01/03 0013 77 96 01/03 0000 97 CPAP 01/02 2359 97.0 74 18 96/52 97 CPAP 01/02 2359 97.0 74 18 96/52 97 CPAP 01/02 2205 75 97 01/02 2000 99 Nasal 1.0L Cannula 01/02 1600 97.4 65 16 140/52 100 Nasal 2.0L Cannula Intake & Output 01/03 1600 01/03 0800 01/03 0000 Intake Total 40 30 Output Total 0 0 Balance 40 30 Intake, IV 40 30 Intake, Oral 0 Output, Urine 0 0 Patient 210 lb Weight Weight Bed scale Measurement Method Intake & Output 01/03 1600 Intake Total Output Total Balance Patient 210 lb Weight Weight Bed scale Measurement Method Exam General Appearance: alert, awake, comfortable Head: atraumatic Neck: normal inspection Respiratory: normal breath sounds, chest non-tender Cardiovascular: irregularly irregular Gastrointestinal: normal bowel sounds, soft, non-tender Extremities: R AKA wrapped in bandage Cranial Nerves: normal hearing, normal speech Skin: intact Current Medications: Current Medications Sig/Bobo Start time Last Medication Dose Route Stop Time Status Admin Acetaminophen 650 MG Q4P PRN 01/02 1645 AC PO Acetaminophen 650 MG Q4P PRN 12/26 2100 DC 12/26 PO 2326 Albumin Human 12.5 GM .Q30MIN PRN 01/02 1000 AC IV Aspirin Buffered 81 MG DAILY 01/03 1000 AC 01/03 PO 0924 Aspirin Buffered 81 MG DAILY 12/27 1000 DC 01/01 PO 0942 Atorvastatin Calcium 10 MG 1700 01/02 1700 AC PO Atorvastatin Calcium 10 MG 1700 12/27 1700 DC 01/01 PO 1746 Cefazolin Sodium 2 GM 01/04 1000 AC N/A 1 UNIT IV Cefazolin Sodium 2 GM 01/02 1000 AC N/A 1 UNIT IV 01/04 0959 Cinacalcet 30 MG 1700 01/02 1700 AC PO Cinacalcet 30 MG 17012/27 1700 DC 01/01 PO 1746 Clopidogrel Bisulfate 75 MG DAILY 01/03 1000 AC 01/03 PO 0925 Clopidogrel Bisulfate 75 MG DAILY 12/27 1000 DC 01/01 PO 0942 Cyanocobalamin 1,000 MCG DAILY 01/03 1000 AC 01/03 PO 0925 Cyanocobalamin 1,000 MCG DAILY 12/27 1000 DC 01/01 PO 0942 Docusate Sodium 100 MG DAILY 01/03 1000 AC 01/03 PO 0924 Docusate Sodium 100 MG DAILY 12/27 1000 DC 01/01 PO 0942 Epoetin Jaron 2,000 UNIT DAILY NEEDED PRN 01/02 1645 AC IV Epoetin Jaron 3,000 UNIT DAILY NEEDED PRN 01/02 1645 AC IV Epoetin Jaron 2,000 UNIT DAILY NEEDED PRN 01/02 1330 DC IV Epoetin Jaron 3,000 UNIT DAILY NEEDED PRN 01/02 1330 DC IV Epoetin Jaron 3,000 UNIT DAILY NEEDED PRN 12/28 0700 DC 12/30 IV 1100 Epoetin Jaron 2,000 UNIT DAILY NEEDED PRN 12/28 0700 DC 12/30 IV 1100 Fentanyl Citrate 250 MCG .STK-MED ONE 01/02 1202 DC IM 01/02 1203 Fentanyl Citrate 100 MCG .STK-MED ONE 01/02 1202 DC IM 01/02 1203 Heparin Sodium 25,000 UNIT Q24H 01/03 0900 AC (Porcine) IV Sodium Chloride 500 ML Ketamine HCl 50 MG .STK-MED ONE 01/02 1057 DC IM 01/02 1058 Lidocaine/Prilocaine 1 GAVI DAILY PRN 01/02 1645 AC TOP Lidocaine/Prilocaine 1 GAVI DAILY PRN 12/28 0700 DC 12/28 TOP 0900 Midazolam HCl 2 MG .STK-MED ONE 01/02 1057 DC IM 01/02 1058 Morphine Sulfate 2 MG Q4P PRN 01/02 1430 AC 01/03 IV 0931 Morphine Sulfate 4 MG Q4P PRN 01/02 1430 DC 01/03 IV 0430 Multivitamins 1 TAB DAILY 01/03 1000 AC 01/03 PO 0925 Multivitamins 1 TAB DAILY 12/27 1000 DC 01/01 PO 0942 Phenylephrine HCl 40 MG Q24H 01/02 1715 DC 01/02 Sodium Chloride 250 ML IV 1630 Phenylephrine HCl 40 MG .STK-MED ONE 01/02 1551 DC IM 01/02 1552 Sevelamer Carbonate 2,400 MG WM 01/02 1700 AC 01/03 PO 0826 Sevelamer Carbonate 2,400 MG WM 12/27 1200 DC 01/01 PO 1746 Impression/Plan Impression/Problem List Impression: Assessment Patient is a 57-year-old male with past medical history significant for peripheral arterial disease status post right [id number] amputation, end- stage renal disease on hemodialysis, coronary artery disease status post PCI and 1 drug-eluting stent in the left main circumflex artery (September 2017) and status post quadruple CABG (2006), diabetes, history of obstructive sleep apnea on CPAP at night, chronic anemia, most recent admission for septic arthritis and staph aureus sepsis, mitral valve endocarditis, osteomyelitis, history of C. difficile presented this admission after he was found to be hypotensive and tachycardic during dialysis with report of recent fatigue and dyspnea. Patient was recently transferred from ICU to telemetry. Patient was initially admitted for sepsis requiring ICU admission due to pressor support, atrial fibrillation, healthcare associated pneumonia. Patient had a triple lumen catheter placed on 12/30 however pressors were discontinued and patient was stable enough to be transferred to telemetry. Today patient remains slightly hypotensive however is otherwise stable. Patient reports no symtpoms. Patient's blood cultures from December 26 grew pansensitive staph aureus. Repeat blood cultures show no growth to date. Patient has been on IV cefazolin 2 grams after each hemodialysis treatment. Patient is currently being followed by ID, nephrology, cardiology and vascular surgery. Patient had an echo which was nondiagnostic for possible vegetations. Patient was hypotensive in the 80s over 50s to 90s over 60s during dialysis yesterday.Patient went for a SAM which showed no vegetations however did show severe mitral regurgitation and possible perforation within the posterior leaflet of the mitral valve. Patient underwent of right AKA. Patient was seen and PACU and remained hypotensive requiring a tomy drip. It was reported that patient lost 350cc of blood and was given 1 pRBC postop. Due to patient's continued hypotension when the tomy drip was stopped temporarily, patient was transferred to the ICU for closer monitoring. *He remained hemodynamically stable during his ICU stay of 1 day. He came off pressors at 6:30 on 01/03, he has been maintaining his blood pressure 90s/50s. He is stable for telemetry floor from our perspective Active issues: 1. Staph aureus sepsis 2. Atrial fibrillation currently in normal sinus rhythm on IV heparin drip 3. End-stage renal disease on hemodialysis 4. S/P Right BKA 5. Chronic anemia on Epogen 6. CAD s/p stent and CABG 7. Chronic constipation 8. S/P R AKA 01/02 POD 1 9. Transaminitis Plan: - Cardiology, nephrology, infectious disease consulted. Appreciate recommendations - Continue IV cefazolin 2 g after each hemodialysis - Continue Epojen - Continue Sensipar - Continue Sevelamer - Continue Atorvastatin - Continue Aspirin and Plavix - Heparin drip has been restarted in the morning as per surgery and cardio reccs - Continue vitamin b12, multivitamin - Continue colace - Continue to follow up blood cultures - Repeat CBC, BEP - Monitor LFTs for transaminitis, consider RUQ U/S if worsening - Consider possible mitral valve surgery as an outpatient - Dressing to be changed on pod 3 or earlier if needed DVT PPx: IV heparin Diet: Renal dialysis Diet Code: Full code Things to be followed up: -Follow-up nephrology note -Follow-up ID note -Follow-up Vascular note Dr. Munguia -Dressing changes as per vascular surgery -Monitor LFTs, CBC and BMP -Continue dialysis next hemodialysis on 01/04. -Please provide referral for outpatient evaluation for mitral valve replacement. Problem List: 1. Cellulitis of leg, right Pain Ratin Tomorrow's Labs & Rationales: cbc icu bundle lfts Plan DVT/Prophylaxis: Saul Toscano MD 01/03/18 1055: Attending MD Review Statement Attending Sign Off Attending Cosign Statement: I have: examined this patient, reviewed avalbl EMR data, personally reviewd images, discussd w/resident/PA/HYDRO EXCAVATION OPERATOR, discussed mgmt plan w/whit, discussed mgmt plan w/CM, discussed mgmt plan w/pt, agreed w/resident/PA/HYDRO EXCAVATION OPERATOR, amended to note. Other Findings: Saul Evans M.D. have examined this patient, reviewed available EMR data, personally reviewed images, discussed with resident/PA/HYDRO EXCAVATION OPERATOR, discussed management plan with housestaff and nursing staff, discussed managment plan all of healthcare providers, discussed management plan with patient and/or family, agreed with resident/PA/HYDRO EXCAVATION OPERATOR. The past history and parts of the chart have been autopopulated. Impression 57 year old man * staph aureus sepsis * s/p aka * ESRD on HD * chronic anemia * a.fib on heparin gtt * s/p sam showing ? perforation in posterior leaflet without obvious clinical significance and will require surveillance Plan -f/u nephrology, ID, vascular surgery, cardiology -off pressors -DG to telemetry -heparin gtt -monitor cbc -HD per renal DVT prophylaxis at all times TTS 35 min
--- NOTE | 2018-01-03 09:47 | PN- Cardiology ---
Subjective Subjective: Patient complains of right leg pain. No chest pain or shortness of breath. Review of Systems: As per HPI all systems reviewed Objective Vital Signs and I&Os Vital Signs Date Time Temp Pulse Resp B/P B/P Pulse O2 O2 Flow FiO2 Mean Ox Delivery Rate 01/03 0800 97.7 71 18 102/50 98 Nasal 1.0L Cannula 01/03 0800 98 Nasal 1.0L Cannula 01/03 0556 72 95 01/03 0400 CPAP 01/03 0311 70 97 01/03 0013 77 96 01/03 0000 97 CPAP 01/02 2359 97.0 74 18 96/52 97 CPAP 01/02 2359 97.0 74 18 96/52 97 CPAP 01/02 2205 75 97 01/02 2000 99 Nasal 1.0L Cannula 01/02 1600 97.4 65 16 140/52 100 Nasal 2.0L Cannula Intake & Output 01/03 1600 01/03 0800 01/03 0000 01/02 1600 01/02 0800 01/02 0000 Intake Total 40 30 200 850 Output Total 0 0 0 Balance 40 30 200 850 Intake, 200 Dialysate Intake, IV 40 30 400 Intake, Oral 0 450 Number 0 Bowel Movements Output, Urine 0 0 0 Patient 207 lb Weight Physical Exam: HEENT unremarkable Neck Supple no JVD Lungs Clear Heart RR S1 S2 3/6 CHARLES LSB Abd Benign Ext. right leg wrapped Current Medications: Current Medications Sig/Bobo Start time Last Medication Dose Route Stop Time Status Admin Acetaminophen 650 MG Q4P PRN 01/02 1645 AC PO Acetaminophen 650 MG Q4P PRN 12/26 2100 DC 12/26 PO 2326 Albumin Human 12.5 GM .Q30MIN PRN 01/02 1000 AC IV Aspirin Buffered 81 MG DAILY 01/03 1000 AC 01/03 PO 0924 Aspirin Buffered 81 MG DAILY 12/27 1000 DC 01/01 PO 0942 Atorvastatin Calcium 10 MG 1700 01/02 1700 AC PO Atorvastatin Calcium 10 MG 1700 12/27 1700 DC 01/01 PO 1746 Cefazolin Sodium 2 GM 01/04 1000 AC N/A 1 UNIT IV Cefazolin Sodium 2 GM 01/02 1000 AC N/A 1 UNIT IV 01/04 0959 Cinacalcet 30 MG 1700 01/02 1700 AC PO Cinacalcet 30 MG 1700 12/27 1700 DC 01/01 PO 1746 Clopidogrel Bisulfate 75 MG DAILY 01/03 1000 AC 01/03 PO 0925 Clopidogrel Bisulfate 75 MG DAILY 12/27 1000 DC 01/01 PO 0942 Cyanocobalamin 1,000 MCG DAILY 01/03 1000 AC 01/03 PO 0925 Cyanocobalamin 1,000 MCG DAILY 12/27 1000 DC 01/01 PO 0942 Docusate Sodium 100 MG DAILY 01/03 1000 AC 01/03 PO 0924 Docusate Sodium 100 MG DAILY 12/27 1000 DC 01/01 PO 0942 Epoetin Jaron 2,000 UNIT DAILY NEEDED PRN 01/02 1645 AC IV Epoetin Jaron 3,000 UNIT DAILY NEEDED PRN 01/02 1645 AC IV Epoetin Jaron 2,000 UNIT DAILY NEEDED PRN 01/02 1330 DC IV Epoetin Jaron 3,000 UNIT DAILY NEEDED PRN 01/02 1330 DC IV Epoetin Jaron 3,000 UNIT DAILY NEEDED PRN 12/28 0700 DC 12/30 IV 1100 Epoetin Jaron 2,000 UNIT DAILY NEEDED PRN 12/28 0700 DC 12/30 IV 1100 Fentanyl Citrate 250 MCG .STK-MED ONE 01/02 1202 DC IM 01/02 1203 Fentanyl Citrate 100 MCG .STK-MED ONE 01/02 1202 DC IM 01/02 1203 Heparin Sodium 25,000 UNIT Q24H 01/03 0900 AC (Porcine) IV Sodium Chloride 500 ML Ketamine HCl 50 MG .STK-MED ONE 01/02 1057 DC IM 01/02 1058 Lidocaine/Prilocaine 1 GAVI DAILY PRN 01/02 1645 AC TOP Lidocaine/Prilocaine 1 GAVI DAILY PRN 12/28 0700 DC 12/28 TOP 0900 Midazolam HCl 2 MG .STK-MED ONE 01/02 1057 DC IM 01/02 1058 Morphine Sulfate 2 MG Q4P PRN 01/02 1430 AC 01/03 IV 0931 Morphine Sulfate 4 MG Q4P PRN 01/02 1430 DC 01/03 IV 0430 Multivitamins 1 TAB DAILY 01/03 1000 AC 01/03 PO 0925 Multivitamins 1 TAB DAILY 12/27 1000 DC 01/01 PO 0942 Phenylephrine HCl 40 MG Q24H 01/02 1715 DC 01/02 Sodium Chloride 250 ML IV 1630 Phenylephrine HCl 40 MG .STK-MED ONE 01/02 1551 DC IM 01/02 1552 Sevelamer Carbonate 2,400 MG WM 01/02 1700 AC 01/03 PO 0826 Sevelamer Carbonate 2,400 MG WM 12/27 1200 DC 01/01 PO 1746 Results Last 48 Hrs of Labs/Mics: Laboratory Tests 01/03/18 0425: Anion Gap 9, Estimated GFR 14 L, Glucose 72, Calcium 8.4, Phosphorus 4.2, Magnesium 1.9, Total Bilirubin 0.5, AST 243 H, ALT 123 H, Albumin 2.8 L, CBC w Diff NO MAN DIFF REQ, RBC 2.47 L, MCV 93.0, MCH 30.8, MCHC 33.1, RDW 15.5 H, MPV 9.3, Gran % 70.3, Lymphocytes % 21.1, Monocytes % 5.5, Eosinophils % 2.6, Basophils % 0.5, Absolute Granulocytes 3.1, Absolute Lymphocytes 0.9 L, Absolute Monocytes 0.2, Absolute Eosinophils 0.1, Absolute Basophils 0 01/02/18 0630: Anion Gap 14, Estimated GFR 8 L, BUN/Creatinine Ratio 7.2, APTT > 120 *H, CBC w Diff NO MAN DIFF REQ, RBC 2.65 L, MCV 92.9, MCH 30.8, MCHC 33.1, RDW 15.4 H, MPV 9.5, Gran % 53.9, Lymphocytes % 37.2, Monocytes % 5.0, Eosinophils % 3.3, Basophils % 0.6, Absolute Granulocytes 2.7, Absolute Lymphocytes 1.9, Absolute Monocytes 0.3, Absolute Eosinophils 0.2, Absolute Basophils 0, ESR Westergren 25 H 01/01/18 1830: APTT 89 H Telemetry reviewed sinus rhythm Recent Imaging Studies: YULIA CONCLUSIONS Normal LV chamber size, wall thickness and systolic function. The estimated LVEF is 55%. There are no focal wall motion of modalities. The mitral valve is thickened and has poor coaptation. There is moderate mitral annular calcification. There is a possible perforation seen within the posterior leaflet. There is severe mitral regurgitation. No vegetations are seen. No cardiac vegetations are seen. Assessment/Plan Assessment/Plan 1. Coronary disease by history status post coronary bypass surgery 2006 with complex PCI to the left main into the circumflex September 2017 with normal LV function 2. Hx of Hypertension 3. Peripheral arterial disease status post prior amputation now S/P right AKA 4. End-stage renal disease on dialysis 5. 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 Diabetes 7. Fever and chills with hypotension most likely secondary to sepsis. 8. Elevated troponins, minimal, not due to ACS 9. Intermittent atrial fibrillation possibly due to sepsis Recommendations 1. Continue current medications 2. Consideration will be made for possible mitral valve surgery as an outpatient 3. Continue heparin Continue telemetry? Yes
--- NOTE | 2018-01-03 10:46 | PN- Nephrology ---
Assessment/Plan Nephrology Assessment: 1. MSSA bacteremia . There are no vegetations on the trans esophageal echo 2. End-stage renal disease on hemodialysis. Next Hemodialysis will be tomorrow 3. 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 Hypotension during dialysis will use salt poor albumin in order to report blood pressure. Unfortunately he is allergic to midodrine. Suggestion: 1. We'll offer hemodialysis again tomorrow 2. We will increase his EPO dose next treatment to 5000. 3. His volume status is difficult to know Subjective Subjective: Patient feels fairly well. He apparently was hypotensive after the surgery requiring some pressor support. That is been weaned off. Objective Vital Signs and I&Os Vital Signs Date Time Temp Pulse Resp B/P B/P Pulse O2 O2 Flow FiO2 Mean Ox Delivery Rate 01/03 0800 97.7 71 18 102/50 98 Nasal 1.0L Cannula 01/03 0800 98 Nasal 1.0L Cannula 01/03 0556 72 95 01/03 0400 CPAP 01/03 0311 70 97 01/03 0013 77 96 01/03 0000 97 CPAP 01/02 2359 97.0 74 18 96/52 97 CPAP 01/02 2359 97.0 74 18 96/52 97 CPAP 01/02 2205 75 97 01/02 2000 99 Nasal 1.0L Cannula 01/02 1600 97.4 65 16 140/52 100 Nasal 2.0L Cannula Intake & Output 01/03 1600 01/03 0400 01/02 1600 01/02 0400 01/01 1600 01/01 0400 Intake Total 436 30 926 167 5156.2 625.6 Output Total 0 0 0 Balance 436 30 050 454 9079.2 625.6 Intake, 200 Dialysate Intake, IV 196 30 400 763.2 175.6 Intake, Oral 240 450 570 450 Number 0 0 Bowel Movements Output, Urine 0 0 0 Patient 210 lb 207 lb 222 lb Weight Weight Bed scale Bed scale Measurement Method Physical Exam: General Appearance: alert, awake, chronically ill-appearing gentleman in no acute distress Head: atraumatic, normal appearance Ears, Nose, Throat: hearing grossly normal Neck: normal inspection Respiratory: normal breath sounds Cardiovascular: regular rate/rhythm Abdomen: normal bowel sounds, soft, non-tender Extremities: status post right AKA Neurologic/Psychiatric: awake, alert, oriented x 3 Skin: intact, no rash or concerning lesions Results Pertinent Lab Results: Laboratory Tests 01/03 01/02 0425 0630 Chemistry Sodium (137 - 145 mmol/L) 137 134 L Potassium (3.5 - 5.1 mmol/L) 4.1 4.4 Chloride (98 - 107 mmol/L) 101 97 L Carbon Dioxide (22 - 30 mmol/L) 27 23 Anion Gap (5 - 16) 9 14 BUN (9 - 20 mg/dL) 22 H 51 H Creatinine (0.7 - 1.2 mg/dL) 4.3 H 7.1 *H Estimated GFR (>60 ml/min) 14 L 8 L BUN/Creatinine Ratio (7 - 25 %) 7.2 Glucose (65 - 99 mg/dL) 72 Calcium (8.4 - 10.2 mg/dL) 8.4 Phosphorus (2.5 - 4.5 mg/dL) 4.2 Magnesium (1.6 - 2.3 mg/dL) 1.9 Total Bilirubin (0.2 - 1.3 mg/dL) 0.5 AST (17 - 59 U/L) 243 H ALT (21 - 72 U/L) 123 H Albumin (3.5 - 5.0 g/dL) 2.8 L Coagulation APTT (25 - 37 SEC) > 120 *H Hematology CBC w Diff NO MAN DIFF REQ NO MAN DIFF REQ WBC (4.8 - 10.8 /CUMM) 4.5 L 5.1 RBC (4.70 - 6.10 /CUMM) 2.47 L 2.65 L Hgb (14.0 - 18.0 G/DL) 7.6 L 8.2 L Hct (42 - 52 %) 22.9 L 24.6 L MCV (80.0 - 94.0 FL) 93.0 92.9 MCH (27.0 - 31.0 PG) 30.8 30.8 MCHC (33.0 - 37.0 G/DL) 33.1 33.1 RDW (11.5 - 14.5 %) 15.5 H 15.4 H Plt Count (130 - 400 /CUMM) 118 L 92 L MPV (7.4 - 10.4 FL) 9.3 9.5 Gran % (42.2 - 75.2 %) 70.3 53.9 Lymphocytes % (20.5 - 51.1 %) 21.1 37.2 Monocytes % (1.7 - 9.3 %) 5.5 5.0 Eosinophils % (0 - 5 %) 2.6 3.3 Basophils % (0.0 - 2.0 %) 0.5 0.6 Absolute Granulocytes (1.4 - 6.5 /CUMM) 3.1 2.7 Absolute Lymphocytes (1.2 - 3.4 /CUMM) 0.9 L 1.9 Absolute Monocytes (0.10 - 0.60 /CUMM) 0.2 0.3 Absolute Eosinophils (0.0 - 0.7 /CUMM) 0.1 0.2 Absolute Basophils (0.0 - 0.2 /CUMM) 0 0 ESR Westergren (0 - 10 MM) 25 H 01/01 01/01 12/31 12/31 1830 0529 2300 1100 Chemistry Sodium (137 - 145 mmol/L) 136 L Potassium (3.5 - 5.1 mmol/L) 4.2 Chloride (98 - 107 mmol/L) 99 Carbon Dioxide (22 - 30 mmol/L) 25 Anion Gap (5 - 16) 12 BUN (9 - 20 mg/dL) 40 H Creatinine (0.7 - 1.2 mg/dL) 5.5 *H Estimated GFR (>60 ml/min) 11 L BUN/Creatinine Ratio (7 - 25 %) 7.3 Coagulation APTT (25 - 37 SEC) 89 H 61 H 60 H 68 H Hematology CBC w Diff NO MAN DIFF REQ WBC (4.8 - 10.8 /CUMM) 4.8 RBC (4.70 - 6.10 /CUMM) 2.67 L Hgb (14.0 - 18.0 G/DL) 7.9 L Hct (42 - 52 %) 24.6 L MCV (80.0 - 94.0 FL) 92.1 MCH (27.0 - 31.0 PG) 29.6 MCHC (33.0 - 37.0 G/DL) 32.2 L RDW (11.5 - 14.5 %) 15.3 H Plt Count (130 - 400 /CUMM) 95 L MPV (7.4 - 10.4 FL) 9.8 Gran % (42.2 - 75.2 %) 53.1 Lymphocytes % (20.5 - 51.1 %) 38.3 Monocytes % (1.7 - 9.3 %) 4.4 Eosinophils % (0 - 5 %) 3.7 Basophils % (0.0 - 2.0 %) 0.5 Absolute Granulocytes (1.4 - 6.5 /CUMM) 2.5 Absolute Lymphocytes (1.2 - 3.4 /CUMM) 1.8 Absolute Monocytes (0.10 - 0.60 /CUMM) 0.2 Absolute Eosinophils (0.0 - 0.7 /CUMM) 0.2 Absolute Basophils (0.0 - 0.2 /CUMM) 0
--- NOTE | 2018-01-03 11:59 | PN- Infect Dx ---
Subjective Subjective: No fever; 5/10 pain R AKA site; better after receiving Morphine. No back pain Review of Systems Comments: 12 points reviewed as noted, otherwise negative. Objective Last 24 Hrs of Vital Signs/I&O Vital Signs Date Time Temp Pulse Resp B/P B/P Pulse O2 O2 Flow FiO2 Mean Ox Delivery Rate 01/03 800 97.7 71 18 102/50 98 Nasal 1.0L Cannula 01/03 0800 98 Nasal 1.0L Cannula 01/03 0556 72 95 01/03 0400 CPAP 01/03 0311 70 97 01/03 0013 77 96 01/03 0000 97 CPAP 01/02 2359 97.0 74 18 96/52 97 CPAP 01/02 2359 97.0 74 18 96/52 97 CPAP 01/02 2205 75 97 01/02 2000 99 Nasal 1.0L Cannula 01/02 1600 97.4 65 16 140/52 100 Nasal 2.0L Cannula Intake & Output 01/03 1600 01/03 0800 01/03 0000 Intake Total 40 30 Output Total 0 0 Balance 40 30 Intake, IV 40 30 Intake, Oral 0 Output, Urine 0 0 Patient 210 lb Weight Weight Bed scale Measurement Method Physical Exam Other Physical Findings: General Appearance: well nourished, no apparent distress, alert, awake HEENT: NC/AT, anicteric sclera, MMM NECK: Supple, no JVD, trachea midline, RIJ TLC CARD: Normal S1/S2 w/o m/g/r; RRR PULM: CTA bilaterally ABD: Soft, NT, ND, BS+ NEURO: Awake and alert, CN II-XII grossly intact EXT: right AKA, normal pulses, no edema SKIN: pale Results Last 24 Hours of Lab Results: Laboratory Tests 01/03 0425 Chemistry Sodium (137 - 145 mmol/L) 137 Potassium (3.5 - 5.1 mmol/L) 4.1 Chloride (98 - 107 mmol/L) 101 Carbon Dioxide (22 - 30 mmol/L) 27 Anion Gap (5 - 16) 9 BUN (9 - 20 mg/dL) 22 H Creatinine (0.7 - 1.2 mg/dL) 4.3 H Estimated GFR (>60 ml/min) 14 L Glucose (65 - 99 mg/dL) 72 Calcium (8.4 - 10.2 mg/dL) 8.4 Phosphorus (2.5 - 4.5 mg/dL) 4.2 Magnesium (1.6 - 2.3 mg/dL) 1.9 Total Bilirubin (0.2 - 1.3 mg/dL) 0.5 AST (17 - 59 U/L) 243 H ALT (21 - 72 U/L) 123 H Albumin (3.5 - 5.0 g/dL) 2.8 L Hematology CBC w Diff NO MAN DIFF REQ WBC (4.8 - 10.8 /CUMM) 4.5 L RBC (4.70 - 6.10 /CUMM) 2.47 L Hgb (14.0 - 18.0 G/DL) 7.6 L Hct (42 - 52 %) 22.9 L MCV (80.0 - 94.0 FL) 93.0 MCH (27.0 - 31.0 PG) 30.8 MCHC (33.0 - 37.0 G/DL) 33.1 RDW (11.5 - 14.5 %) 15.5 H Plt Count (130 - 400 /CUMM) 118 L MPV (7.4 - 10.4 FL) 9.3 Gran % (42.2 - 75.2 %) 70.3 Lymphocytes % (20.5 - 51.1 %) 21.1 Monocytes % (1.7 - 9.3 %) 5.5 Eosinophils % (0 - 5 %) 2.6 Basophils % (0.0 - 2.0 %) 0.5 Absolute Granulocytes (1.4 - 6.5 /CUMM) 3.1 Absolute Lymphocytes (1.2 - 3.4 /CUMM) 0.9 L Absolute Monocytes (0.10 - 0.60 /CUMM) 0.2 Absolute Eosinophils (0.0 - 0.7 /CUMM) 0.1 Absolute Basophils (0.0 - 0.2 /CUMM) 0 Last 24 Hours of Brendan Results: SPEC #: [id number] BRIAN: 01/02/18 STATUS: RES RECD: 01/02/[address]: Bunny Munguia MD SOURCE: EXTREMITIE ENTR: 01/02/18-[address]: Karen MARTINEZ, Enma Merino SPDESC: ROMAN Merchant MD,Joshua Martinez MD,Clinton Sinclair ORDERED: XTRMOR COMMENT: ADDITIONAL INFORMATION: MARROW RECEIVED ~2CC PIECE OF BONE MARROW IN STERILE CUP Procedure Result GRAM STAIN - PENDING > EXTREMITIES OR SPECIMEN Preliminary 01/03/18 NO GROWTH AFTER 1 DAY Recent Imaging Studies: YULIA 01/02 CONCLUSIONS Normal LV chamber size, wall thickness and systolic function. The estimated LVEF is 55%. There are no focal wall motion of modalities. The mitral valve is thickened and has poor coaptation. There is moderate mitral annular calcification. There is a possible perforation seen within the posterior leaflet. There is severe mitral regurgitation. No vegetations are seen. No cardiac vegetations are seen. Nic Keenan M.D. 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 Source of bacteremia still unclear; YULIA negative vegetations; now status post R AKA POD #1; evaluated for residual infection related to the right BKA stump (OR culture from 01/02 no growth to date). Another focus that may have been seeded from the recent bacteremia. Question LLL infiltrate (CXR 12/30) Suggestion: 1. Continue Cefazolin 2 g IV after each dialysis started 12/27 for total 6 weeks. 2. CBC, BMP, ESR weekly. 3. F/U final bone biopsy and culture results from 01/02.
[2018-01-03 16:00] VITALS: BP 92/52
[2018-01-03 17:02] LABS: PTT 50 SEC (25-37)
--- NOTE | 2018-01-03 21:15 | RADIOLOGY REPORT ---
EXAMINATION: XR PORTABLE CHEST CLINICAL INFORMATION: 57-year-old male patient with increasing O2 requirements. COMPARISON: None TECHNIQUE: Portable AP portable semierect view of the chest was obtained. FINDINGS: The heart remains enlarged. There are bilateral pleural effusions. The right IJ catheter terminates in the distal SVC. IMPRESSION: Cardiomegaly. Pleural effusions.
[2018-01-03 22:33] LABS: PTT 52 SEC (25-37)
--- NOTE | 2018-01-03 23:13 | Event Note ---
Event Note Event Note: Around 11 pm I was informed that pt had manual BP of 76/40s and repeat BP was 68 /40. Pt was asleep and asymptomatic. Earlier in the evening he had been febrile up to 101 and blood cultures, sputum culture and a cxr was obtained. Pt continues to recieve IV cefazolin with dialysis (last on 01/02/2018). Pt poor candidate for IVF bolus as he has evidence of pleural effusion on cxr, already on nocturnal cpap and he is ESRD. Will proceed with levophed and titrate as necessary. Pt has RIJ access available.
[2018-01-04] VITALS: BP 100/50
[2018-01-04 04:40] LABS: ABSOLUTE BASOPHIL COUNT 0 /CUMM (0.0-0.2); ABSOLUTE EOSINOPHIL COUNT 0.1 /CUMM (0.0-0.7); ABSOLUTE GRANULOCYTE CT 11.3 /CUMM (1.4-6.5); ABSOLUTE LYMPH COUNT 0.4 /CUMM (1.2-3.4); ABSOLUTE MONOCYTE COUNT 0.3 /CUMM (0.10-0.60); BASOPHIL % 0 % (0.0-2.0); EOSINOPHIL % 0.6 % (0-5); GRANULOCYTE % 93.4 % (42.2-75.2); HEMATOCRIT 27.7 % (42-52); MEAN CORPUSCULAR HGB 30.8 PG (27.0-31.0); MEAN CORPUSCULAR HGB CONC 32.7 G/DL (33.0-37.0); MEAN CORPUSCULAR VOLUME 94.1 FL (80.0-94.0); MEAN PLATELET VOLUME 9.7 FL (7.4-10.4); PLATELET COUNT 156 /CUMM (130-400); RBC DISTRIBUTION WIDTH 15.6 % (11.5-14.5); RED BLOOD CELL CT 2.94 /CUMM (4.70-6.10)
[2018-01-04 04:49] LABS: WHITE BLOOD CELL COUNT 12.1 /CUMM (4.8-10.8)
[2018-01-04 04:52] LABS: PTT 78 SEC (25-37)
[2018-01-04 08:00] VITALS: BP 120/60
--- NOTE | 2018-01-04 09:15 | PN- Cardiology ---
Subjective Subjective: The patient is awake, alert The events of the last 24 hours as well as telemetry were reviewed. Review of Systems: The review of systems is negative for chest pains, palpitations nor lightheadedness. The remainder of the 14 point review of systems is noncontributory with the exception of above. Objective Vital Signs and I&Os Vital Signs Date Time Temp Pulse Resp B/P B/P Pulse O2 O2 Flow FiO2 Mean Ox Delivery Rate 01/04 0552 72 100 01/04 0333 77 99 01/04 0034 81 99 01/04 0000 99 CPAP Room Air 01/04 0000 99.2 82 18 100/50 99 CPAP Room Air 01/03 2327 99.2 84 17 68/40 01/03 2147 82 96 01/03 1912 101.2 01/03 1600 96 Nasal 1.0L Cannula 01/03 1600 97.9 70 18 92/52 97 Nasal 1.0L Cannula Intake & Output 01/04 1600 01/04 0800 01/04 0000 01/03 1600 01/03 0800 01/03 0000 Intake Total 727 438 396 40 30 Output Total 0 0 0 Balance 727 438 396 40 30 Intake, IV 477 238 156 40 30 Intake, Oral 250 200 240 0 Number 0 0 Bowel Movements Output, Urine 0 0 0 Patient 210 lb Weight Weight Bed scale Measurement Method Physical Exam: General: Nontoxic, no apparent distress. HEENT: Sclera and conjunctiva within normal limits, without xanthelasmas. Neck: Carotids 2+ without bruits. Respiratory: Clear to auscultation, air movement is good, without accessory respiratory muscle use. Heart: Regular rate and rhythm, without murmurs, without JVD. Abdomen: Soft, nontender, no masses, normoactive bowel sounds. Extremities: Without clubbing, cyanosis, status post right AKA Neuro: Nonfocal exam, strength, 5 out of 5 Skin: Within normal limits without lesions. Psych: Mood and affect: Normal Current Medications: Current Medications Sig/Bobo Start time Last Medication Dose Route Stop Time Status Admin Acetaminophen 650 MG .STK-MED ONE 01/03 1901 DC PO 01/03 190 Acetaminophen 650 MG Q4P PRN 01/02 1645 DC PO Albumin Human 12.5 GM .Q30MIN PRN 01/02 1000 AC IV Aspirin Buffered 81 MG DAILY 01/03 1000 AC 01/03 PO 0924 Atorvastatin Calcium 10 MG 1700 01/02 1700 DC PO Cefazolin Sodium 2 GM 01/04 1000 AC N/A 1 UNIT IV Cefazolin Sodium 2 GM 01/02 1000 AC N/A 1 UNIT IV 01/04 0959 Cinacalcet 30 MG 1700 01/02 1700 AC 01/03 PO 1721 Clopidogrel Bisulfate 75 MG DAILY 01/03 1000 AC 01/03 PO 0925 Cyanocobalamin 1,000 MCG DAILY 01/03 1000 AC 01/03 PO 0925 Docusate Sodium 100 MG DAILY 01/03 1000 AC 01/03 PO 0924 Epoetin Jaron 2,000 UNIT DAILY NEEDED PRN 01/02 1645 AC IV Epoetin Jaron 3,000 UNIT DAILY NEEDED PRN 01/02 164 AC IV Heparin Sodium 5,000 UNIT .STK-MED ONE 01/03 2254 DC (Porcine) IV 01/03 2255 Heparin Sodium 3,816 UNIT ONCE ONE 01/035 DC 01/03 (Porcine) IV 01/03 2246 2316 Heparin Sodium 25,000 UNIT Q24H 01/03 0900 AC 01/04 (Porcine) IV 0351 Sodium Chloride 500 ML Ibuprofen 400 MG ONCE ONE 01/03 1915 DC 01/03 PO 01/03 191 191 Lidocaine/Prilocaine 1 GAVI DAILY PRN 01/02 1645 TOP Morphine Sulfate 4 MG .STK-MED ONE 01/03 2010 DC IM 01/03 2011 Morphine Sulfate 2 MG Q4P PRN 01/02 1430 AC 01/03 IV 2014 Multivitamins 1 TAB DAILY 01/03 1000 AC 01/03 PO 0925 Norepinephrine 4 MG Q6H 01/04 0000 AC 01/03 Sodium Chloride 250 ML IV 2327 Sevelamer Carbonate 2,400 MG WM 01/02 1700 AC 01/03 PO 1721 Results Last 48 Hrs of Labs/Mics: Laboratory Tests 01/04/18 0345: Anion Gap 15, Estimated GFR 11 L, Glucose 148 H, Calcium 8.5, Phosphorus 4.1, Magnesium 1.9, Total Bilirubin 0.5, AST 106 H, ALT 69, Albumin 3.2 L, APTT 78 H, CBC w Diff MAN DIFF ORDERED, RBC 2.94 L, MCV 94.1 H, MCH 30.8, MCHC 32.7 L , RDW 15.6 H, MPV 9.7, Gran % 93.4 H, Lymphocytes % 3.2 L, Monocytes % 2.8, Eosinophils % 0.6, Basophils % 0, Absolute Granulocytes 11.3 H, Segmented Neutrophils 95 H, Band Neutrophils 1, Absolute Lymphocytes 0.4 L, Lymphocytes 1 L, Monocytes 2, Absolute Monocytes 0.3, Eosinophils 1, Absolute Eosinophils 0.1, Absolute Basophils 0, Platelet Estimate ADEQUATE, Hypochromic-Microcytic 1+ , Poikilocytosis 1+, Ovalocytes 1+, Fld Total RBCs Counted 100 01/03/18 2200: APTT 52 H 01/03/18 1610: APTT 50 H 01/03/18 0425: Anion Gap 9, Estimated GFR 14 L, Glucose 72, Calcium 8.4, Phosphorus 4.2, Magnesium 1.9, Total Bilirubin 0.5, AST 243 H, ALT 123 H, Albumin 2.8 L, CBC w Diff NO MAN DIFF REQ, RBC 2.47 L, MCV 93.0, MCH 30.8, MCHC 33.1, RDW 15.5 H, MPV 9.3, Gran % 70.3, Lymphocytes % 21.1, Monocytes % 5.5, Eosinophils % 2.6, Basophils % 0.5, Absolute Granulocytes 3.1, Absolute Lymphocytes 0.9 L, Absolute Monocytes 0.2, Absolute Eosinophils 0.1, Absolute Basophils 0 Microbiology 01/02 1700 UPPER RESP: Surveillance Culture - COMP 01/02 1700 GI: Surveillance Culture - COMP Assessment/Plan Assessment/Plan 1. Coronary disease by history status post coronary bypass surgery 2006 with complex PCI to the left main into the circumflex September 2017 with normal LV function 2. Hx of Hypertension 3. Peripheral arterial disease status post prior amputation now S/P right AKA 4. End-stage renal disease on dialysis 5. 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 Repeat YULIA to 01/02/18 was negative for vegetations; however, with severe mitral regurgitation and possible perforation 6. Diabetes 7. Fever and chills with hypotension most likely secondary to sepsis. 8. Elevated troponins, minimal, not due to ACS 9. Intermittent atrial fibrillation possibly due to sepsis Coronary artery disease: The patient has known coronary artery disease, and a stable in regards to the same. He will continue his current medication regimen. A beta debbi will be initiated if able to tolerate from a blood pressure standpoint, once pressors are discontinued. Bacteremia: A YULIA demonstrated no vegetations; however, likely valvular perforation of the posterior mitral valve leaflet and moderate to severe regurgitation. He will likely require surgical intervention of his mitral valve Atrial fibrillation: The patient has atrial fibrillation. Given the results of the YULIA demonstrating moderate to severe regurgitation, this is a likely etiology. Will require anticoagulation post surgery and further consideration for valvular repair Continue telemetry? Yes
--- NOTE | 2018-01-04 10:18 | PN- Nephrology ---
Assessment/Plan Nephrology Assessment: 1. MSSA bacteremia . There are no vegetations on the trans esophageal echo however he was febrile and hypotensive 2. End-stage renal disease on hemodialysis. Next Hemodialysis will be tomorrow 3. 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 Hypotension during dialysis will use salt poor albumin in order to report blood pressure. Unfortunately he is allergic to midodrine. Suggestion: 1. Hemodialysis in progress 2. Will use salt poor albumin 25% 12.5 g IV every 30 minutes as needed for a systolic blood pressure less than 100 Subjective Subjective: Patient seen with hemodialysis in progress he offers no complaints. Objective Vital Signs and I&Os Vital Signs Date Time Temp Pulse Resp B/P B/P Pulse O2 O2 Flow FiO2 Mean Ox Delivery Rate 01/04 0911 71 83/40 01/04 0552 72 100 01/04 0333 77 99 01/04 0034 81 99 01/04 0000 99 CPAP Room Air 01/04 0000 99.2 82 18 100/50 99 CPAP Room Air 01/03 2327 99.2 84 17 68/40 01/03 2147 82 96 01/03 1912 101.2 01/03 1600 96 Nasal 1.0L Cannula 01/03 1600 97.9 70 18 92/52 97 Nasal 1.0L Cannula Intake & Output 01/04 1600 01/04 0400 01/03 1600 01/03 0400 01/02 1600 01/02 0400 Intake Total 727 438 436 30 200 850 Output Total 0 0 0 Balance 727 438 436 30 200 850 Intake, 200 Dialysate Intake, IV 477 238 196 30 400 Intake, Oral 250 200 240 450 Number 0 0 0 Bowel Movements Output, Urine 0 0 0 Patient 210 lb 207 lb Weight Weight Bed scale Measurement Method Physical Exam: General Appearance: alert, awake, chronically ill-appearing gentleman in no acute distress Head: atraumatic, normal appearance Ears, Nose, Throat: hearing grossly normal Neck: normal inspection Respiratory: normal breath sounds Cardiovascular: regular rate/rhythm Abdomen: normal bowel sounds, soft, non-tender Extremities: status post right AKA Neurologic/Psychiatric: awake, alert, oriented x 3 Skin: intact, no rash or concerning lesions Current Medications: Current Medications Sig/Bobo Start time Last Medication Dose Route Stop Time Status Admin Acetaminophen 650 MG .STK-MED ONE 01/03 1901 DC PO 02/27 1902 Acetaminophen 650 MG Q4P PRN 01/02 1645 DC PO Albumin Human 12.5 GM .Q30MIN PRN 01/02 1000 AC IV Aspirin Buffered 81 MG DAILY 01/03 1000 AC 01/03 PO 0924 Atorvastatin Calcium 10 MG 17001/02 1700 DC PO Cefazolin Sodium 2 GM 01/04 1000 AC N/A 1 UNIT IV Cefazolin Sodium 2 GM 01/02 1000 DC N/A 1 UNIT IV 01/04 0959 Cinacalcet 30 MG 17001/02 1700 AC 01/03 PO 1721 Clopidogrel Bisulfate 75 MG DAILY 01/03 1000 AC 01/03 PO 0925 Cyanocobalamin 1,000 MCG DAILY 01/03 1000 AC 01/03 PO 0925 Docusate Sodium 100 MG DAILY 01/03 1000 AC 01/03 PO 0924 Epoetin Jaron 2,000 UNIT DAILY NEEDED PRN 01/02 1645 AC IV Epoetin Jaron 3,000 UNIT DAILY NEEDED PRN 01/02 1645 AC IV Heparin Sodium 5,000 UNIT .STK-MED ONE 01/03 2254 DC (Porcine) IV 01/03 2255 Heparin Sodium 3,816 UNIT ONCE ONE 01/03 2245 DC 01/03 (Porcine) IV 01/03 2246 2316 Heparin Sodium 25,000 UNIT Q24H 01/03 0900 AC 01/04 (Porcine) IV 0351 Sodium Chloride 500 ML Ibuprofen 400 MG ONCE ONE 01/03 1915 DC 01/03 PO 01/03 1916 1912 Lidocaine/Prilocaine 1 GAVI DAILY PRN 01/02 1645 AC TOP Morphine Sulfate 4 MG .STK-MED ONE 01/03 2010 DC IM 01/03 2011 Morphine Sulfate 2 MG Q4P PRN 01/02 1430 AC 01/04 IV 0908 Multivitamins 1 TAB DAILY 01/03 1000 AC 01/03 PO 0925 Norepinephrine 4 MG Q6H 01/04 0000 AC 01/04 Sodium Chloride 250 ML IV 0911 Sevelamer Carbonate 2,400 MG WM 01/02 1700 AC 01/04 PO 0800 Results Pertinent Lab Results: Laboratory Tests 01/04 01/03 01/03 0345 2200 1610 Chemistry Sodium (137 - 145 mmol/L) 139 Potassium (3.5 - 5.1 mmol/L) 4.0 Chloride (98 - 107 mmol/L) 100 Carbon Dioxide (22 - 30 mmol/L) 24 Anion Gap (5 - 16) 15 BUN (9 - 20 mg/dL) 33 H Creatinine (0.7 - 1.2 mg/dL) 5.6 *H Estimated GFR (>60 ml/min) 11 L Glucose (65 - 99 mg/dL) 148 H Calcium (8.4 - 10.2 mg/dL) 8.5 Phosphorus (2.5 - 4.5 mg/dL) 4.1 Magnesium (1.6 - 2.3 mg/dL) 1.9 Total Bilirubin (0.2 - 1.3 mg/dL) 0.5 AST (17 - 59 U/L) 106 H ALT (21 - 72 U/L) 69 Albumin (3.5 - 5.0 g/dL) 3.2 L Coagulation APTT (25 - 37 SEC) 78 H 52 H 50 H Hematology CBC w Diff MAN DIFF ORDERED WBC (4.8 - 10.8 /CUMM) 12.1 H RBC (4.70 - 6.10 /CUMM) 2.94 L Hgb (14.0 - 18.0 G/DL) 9.1 L Hct (42 - 52 %) 27.7 L MCV (80.0 - 94.0 FL) 94.1 H MCH (27.0 - 31.0 PG) 30.8 MCHC (33.0 - 37.0 G/DL) 32.7 L RDW (11.5 - 14.5 %) 15.6 H Plt Count (130 - 400 /CUMM) 156 MPV (7.4 - 10.4 FL) 9.7 Gran % (42.2 - 75.2 %) 93.4 H Lymphocytes % (20.5 - 51.1 %) 3.2 L Monocytes % (1.7 - 9.3 %) 2.8 Eosinophils % (0 - 5 %) 0.6 Basophils % (0.0 - 2.0 %) 0 Absolute Granulocytes (1.4 - 6.5 /CUMM) 11.3 H Segmented Neutrophils (42.2 - 75.2 %) 95 H Band Neutrophils (0.0 - 5.0 %) 1 Absolute Lymphocytes (1.2 - 3.4 /CUMM) 0.4 L Lymphocytes (20.5 - 51.1 %) 1 L Monocytes (1.7 - 9.3 %) 2 Absolute Monocytes (0.10 - 0.60 /CUMM) 0.3 Eosinophils (0 - 5.0 %) 1 Absolute Eosinophils (0.0 - 0.7 /CUMM) 0.1 Absolute Basophils (0.0 - 0.2 /CUMM) 0 Platelet Estimate (ADEQUATE) ADEQUATE Hypochromic-Microcytic 1+ Poikilocytosis 1+ Ovalocytes 1+ Other Body Source Fld Total RBCs Counted (%) 100 01/03 01/02 0425 0630 Chemistry Sodium (137 - 145 mmol/L) 137 134 L Potassium (3.5 - 5.1 mmol/L) 4.1 4.4 Chloride (98 - 107 mmol/L) 101 97 L Carbon Dioxide (22 - 30 mmol/L) 27 23 Anion Gap (5 - 16) 9 14 BUN (9 - 20 mg/dL) 22 H 51 H Creatinine (0.7 - 1.2 mg/dL) 4.3 H 7.1 *H Estimated GFR (>60 ml/min) 14 L 8 L BUN/Creatinine Ratio (7 - 25 %) 7.2 Glucose (65 - 99 mg/dL) 72 Calcium (8.4 - 10.2 mg/dL) 8.4 Phosphorus (2.5 - 4.5 mg/dL) 4.2 Magnesium (1.6 - 2.3 mg/dL) 1.9 Total Bilirubin (0.2 - 1.3 mg/dL) 0.5 AST (17 - 59 U/L) 243 H ALT (21 - 72 U/L) 123 H Albumin (3.5 - 5.0 g/dL) 2.8 L Coagulation APTT (25 - 37 SEC) > 120 *H Hematology CBC w Diff NO MAN DIFF REQ NO MAN DIFF REQ WBC (4.8 - 10.8 /CUMM) 4.5 L 5.1 RBC (4.70 - 6.10 /CUMM) 2.47 L 2.65 L Hgb (14.0 - 18.0 G/DL) 7.6 L 8.2 L Hct (42 - 52 %) 22.9 L 24.6 L MCV (80.0 - 94.0 FL) 93.0 92.9 MCH (27.0 - 31.0 PG) 30.8 30.8 MCHC (33.0 - 37.0 G/DL) 33.1 33.1 RDW (11.5 - 14.5 %) 15.5 H 15.4 H Plt Count (130 - 400 /CUMM) 118 L 92 L MPV (7.4 - 10.4 FL) 9.3 9.5 Gran % (42.2 - 75.2 %) 70.3 53.9 Lymphocytes % (20.5 - 51.1 %) 21.1 37.2 Monocytes % (1.7 - 9.3 %) 5.5 5.0 Eosinophils % (0 - 5 %) 2.6 3.3 Basophils % (0.0 - 2.0 %) 0.5 0.6 Absolute Granulocytes (1.4 - 6.5 /CUMM) 3.1 2.7 Absolute Lymphocytes (1.2 - 3.4 /CUMM) 0.9 L 1.9 Absolute Monocytes (0.10 - 0.60 /CUMM) 0.2 0.3 Absolute Eosinophils (0.0 - 0.7 /CUMM) 0.1 0.2 Absolute Basophils (0.0 - 0.2 /CUMM) 0 0 ESR Westergren (0 - 10 MM) 25 H 01/01 1830 Coagulation APTT (25 - 37 SEC) 89 H
--- NOTE | 2018-01-04 10:41 | PN- Resident CRCU ---
Cricket MARTINEZ,[facility] 01/04/18 1041: Subjective HPI/CRCU Issues: AKA 24 Hour Events: Patient has been seen and examined. He was resting comfortably. on CPAP, Levophed 5 and heparin drip. He did not report any symptoms. Patient was reevaluated during the day as well. He was getting dialyzed, denies chills, shortness of breath, chest pain, palpitations, abdominal pain. Reports pain in her right stump which is controlled by pain medications. Objective Vital Signs & I&O Last 8 Hrs of Vitals and I&O: Vital Signs Date Time Temp Pulse Resp B/P B/P Pulse O2 O2 Flow FiO2 Mean Ox Delivery Rate 01/04 0911 71 83/40 01/04 0800 99 Nasal 2.0L Cannula 01/04 0800 99.5 74 18 120/60 100 Nasal 2.0L Cannula 01/04 0552 72 100 01/04 0333 77 99 01/04 0034 81 99 01/04 0000 99 CPAP Room Air 01/04 0000 99.2 82 18 100/50 99 CPAP Room Air 01/03 2327 99.2 84 17 68/40 01/03 2147 82 96 01/03 1912 101.2 01/03 1600 96 Nasal 1.0L Cannula 01/03 1600 97.9 70 18 92/52 97 Nasal 1.0L Cannula Intake & Output 01/04 1600 01/04 0800 01/04 0000 Intake Total 727 438 Output Total Balance 727 438 Intake, IV 477 238 Intake, Oral 250 200 Number 0 Bowel Movements Exam General Appearance: no apparent distress, alert, awake Head: atraumatic Neck: normal inspection Respiratory: normal breath sounds Cardiovascular: irregularly irregular Gastrointestinal: normal bowel sounds, soft, non-tender Current Medications: Current Medications Sig/Bobo Start time Last Medication Dose Route Stop Time Status Admin Albumin Human 12.5 GM .Q30MIN PRN 01/02 1000 AC 01/04 IV 1058 Aspirin Buffered 81 MG DAILY 01/03 1000 AC 01/04 PO 1419 Cefazolin Sodium 2 GM 01/04 1000 AC 01/04 N/A 1 UNIT IV 1421 Cefazolin Sodium 2 GM 01/02 1000 DC N/A 1 UNIT IV 01/04 0959 Cinacalcet 30 MG 1700 01/02 1700 AC 01/04 PO 1656 Clopidogrel Bisulfate 75 MG DAILY 01/03 1000 AC 01/04 PO 1419 Cyanocobalamin 1,000 MCG DAILY 01/03 1000 AC 01/04 PO 1419 Docusate Sodium 100 MG DAILY 01/03 1000 AC 01/04 PO 1421 Epoetin Jaron 2,000 UNIT DAILY NEEDED PRN 01/02 1645 AC 01/04 IV 1058 Epoetin Jaron 3,000 UNIT DAILY NEEDED PRN 01/02 1645 AC 01/04 IV 1058 Heparin Sodium 25,000 UNIT Q24H 01/03 0900 DC 01/04 (Porcine) IV 01/05 0500 0351 Sodium Chloride 500 ML Lidocaine/Prilocaine 1 GAVI DAILY PRN 01/02 1645 AC TOP Morphine Sulfate 2 MG Q4P PRN 01/02 1430 AC 01/04 IV 2207 Multivitamins 1 TAB DAILY 01/03 1000 AC 01/04 PO 1419 Norepinephrine 4 MG Q16H 01/04 1000 AC 01/05 Sodium Chloride 250 ML IV 0505 Norepinephrine 4 MG Q6H 01/04 0000 DC 01/04 Sodium Chloride 250 ML IV 0911 Sevelamer Carbonate 2,400 MG WM 01/02 1700 AC 01/04 PO 1655 Vancomycin HCl 1,000 MG ONCE ONE 01/04 1400 DC 01/04 Dextrose/Water 250 ML IV 01/04 1459 1536 Impression/Plan Impression/Problem List Impression: Assessment Patient is a 57-year-old male with past medical history significant for peripheral arterial disease status post right [id number] amputation, end- stage renal disease on hemodialysis, coronary artery disease status post PCI and 1 drug-eluting stent in the left main circumflex artery (September 2017) and status post quadruple CABG (2006), diabetes, history of obstructive sleep apnea on CPAP at night, chronic anemia, most recent admission for septic arthritis and staph aureus sepsis, mitral valve endocarditis, osteomyelitis, history of C. difficile presented this admission after he was found to be hypotensive and tachycardic during dialysis with report of recent fatigue and dyspnea. Patient was recently transferred from ICU to telemetry. Patient was initially admitted for sepsis requiring ICU admission due to pressor support, atrial fibrillation, healthcare associated pneumonia. Patient had a triple lumen catheter placed on 12/30 however pressors were discontinued and patient was stable enough to be transferred to telemetry. Today patient remains slightly hypotensive however is otherwise stable. Patient reports no symtpoms. Patient's blood cultures from December 26 grew pansensitive staph aureus. Repeat blood cultures show no growth to date. Patient has been on IV cefazolin 2 grams after each hemodialysis treatment. Patient is currently being followed by ID, nephrology, cardiology and vascular surgery. Patient had an echo which was nondiagnostic for possible vegetations. Patient was hypotensive in the 80s over 50s to 90s over 60s during dialysis yesterday.Patient went for a SAM which showed no vegetations however did show severe mitral regurgitation and possible perforation within the posterior leaflet of the mitral valve. Patient underwent of right AKA. Patient was seen and PACU and remained hypotensive requiring a tomy drip. It was reported that patient lost 350cc of blood and was given 1 pRBC postop. Due to patient's continued hypotension when the tomy drip was stopped temporarily, patient was transferred to the ICU for closer monitoring. Patient's blood pressure dropped to manual 76/40, was asleep and asymptomatic he was started on levophed currently running at 5mcgs. He also spiked fever 101.2 overnight blood cultures 2 were drawn and chest x-ray was obtained significant for cardiomegaly snd pleural effusions. Leukocytosis with left shift. At this point source of bacteremia remains unclear, negative SAM, s/p AKA. Seeding??? Pulmonary source? R IJ line infected?? Active issues: 1. Staph aureus sepsis 2. Atrial fibrillation currently in normal sinus rhythm on IV heparin drip 3. End-stage renal disease on hemodialysis 4. S/P Right BKA 5. Chronic anemia on Epogen 6. CAD s/p stent and CABG 7. Chronic constipation 8. S/P R AKA 01/02 POD 2 9. Transaminitis likely psot op Plan: - Cardiology, nephrology, infectious disease consulted. Appreciate recommendations - Continue IV cefazolin 2 g after each hemodialysis - Continue Epojen, Sensipar and Sevelamer - Continue Aspirin and Plavix - Heparin drip was restarted on 01/03 in am after surgery - Continue vitamin b12, multivitamin - Continue colace - Tylenol and statin on hold for now will address tomorrow after reveiwng labs - Repeat CBC, BEP - Monitor LFTs for transaminitis, trending down - F/U BCX2 -Consider removing the RIJ - Patient is getting dialyzed today he will receive 12.5 g of 25% IV albumin Q30 PRN for SBP <100 - Continue Levophed - Consider possible mitral valve surgery as an outpatient - Dressing to be changed on pod 3 or earlier if needed DVT PPx: IV heparin Diet: Renal dialysis Diet Code: Full code Things to be followed up: -Follow-up nephrology note -Follow-up ID note -Follow-up Vascular note Dr. Munguia -Dressing changes as per vascular surgery -Monitor LFTs, CBC and BMP -Referral for outpatient evaluation for mitral valve replacement. Problem List: 1. Sepsis Pain Ratin Tomorrow's Labs & Rationales: cbc icu Plan DVT/Prophylaxis: Saul Toscano MD 01/04/18 1046: Attending MD Review Statement Attending Sign Off Attending Cosign Statement: I have: examined this patient, reviewed avalbl EMR data, personally reviewd images, discussd w/resident/PA/ROLLER, discussed mgmt plan w/whit, discussed mgmt plan w/CM, discussed mgmt plan w/pt, agreed w/resident/PA/ROLLER, amended to note. Other Findings: ISaul M.D. have examined this patient, reviewed available EMR data, personally reviewed images, discussed with resident/PA/ROLLER, discussed management plan with housestaff and nursing staff, discussed managment plan all of healthcare providers, discussed management plan with patient and/or family, agreed with resident/PA/ROLLER. The past history and parts of the chart have been autopopulated. Impression 57 year old man * staph aureus sepsis * s/p aka * ESRD on HD * chronic anemia * a.fib on heparin gtt * s/p sam showing ? perforation in posterior leaflet without obvious clinical significance and will require surveillance Plan -f/u nephrology, ID, vascular surgery, cardiology -again febrile, pressors -heparin gtt -monitor cbc -HD per renal DVT prophylaxis at all times TTS 35 min
--- NOTE | 2018-01-04 11:42 | PN- Infect Dx ---
Subjective Subjective: Spiked fever last evening. currently comfortable. Hypotensive; started levophed. Review of Systems Comments: 12 points reviewed as noted, otherwise neg. Objective Last 24 Hrs of Vital Signs/I&O Vital Signs Date Time Temp Pulse Resp B/P B/P Pulse O2 O2 Flow FiO2 Mean Ox Delivery Rate 01/04 0911 71 83/40 01/04 0800 99 Nasal 2.0L Cannula 01/04 0800 99.5 74 18 120/60 100 Nasal 2.0L Cannula 01/04 0552 72 100 01/04 0333 77 99 01/04 0034 81 99 01/04 0000 99 CPAP Room Air 01/04 0000 99.2 82 18 100/50 99 CPAP Room Air 01/03 2327 99.2 84 17 68/40 01/03 2147 82 96 01/03 1912 101.2 01/03 1600 96 Nasal 1.0L Cannula 01/03 1600 97.9 70 18 92/52 97 Nasal 1.0L Cannula Intake & Output 01/04 1600 01/04 0800 01/04 0000 Intake Total 727 438 Output Total Balance 727 438 Intake, IV 477 238 Intake, Oral 250 200 Number 0 Bowel Movements Physical Exam Other Physical Findings: General Appearance: well nourished, no apparent distress, alert, awake HEENT: NC/AT, anicteric sclera, MMM NECK: Supple, no JVD, trachea midline, RIJ TLC CARD: Normal S1/S2 w/o m/g/r; RRR PULM: CTA bilaterally ABD: Soft, NT, ND, BS+ NEURO: Awake and alert, CN II-XII grossly intact EXT: right AKA, normal pulses, no edema SKIN: pale Results Last 24 Hours of Lab Results: Laboratory Tests 01/04 01/03 01/03 0345 2200 1610 Chemistry Sodium (137 - 145 mmol/L) 139 Potassium (3.5 - 5.1 mmol/L) 4.0 Chloride (98 - 107 mmol/L) 100 Carbon Dioxide (22 - 30 mmol/L) 24 Anion Gap (5 - 16) 15 BUN (9 - 20 mg/dL) 33 H Creatinine (0.7 - 1.2 mg/dL) 5.6 *H Estimated GFR (>60 ml/min) 11 L Glucose (65 - 99 mg/dL) 148 H Calcium (8.4 - 10.2 mg/dL) 8.5 Phosphorus (2.5 - 4.5 mg/dL) 4.1 Magnesium (1.6 - 2.3 mg/dL) 1.9 Total Bilirubin (0.2 - 1.3 mg/dL) 0.5 AST (17 - 59 U/L) 106 H ALT (21 - 72 U/L) 69 Albumin (3.5 - 5.0 g/dL) 3.2 L Coagulation APTT (25 - 37 SEC) 78 H 52 H 50 H Hematology CBC w Diff MAN DIFF ORDERED WBC (4.8 - 10.8 /CUMM) 12.1 H RBC (4.70 - 6.10 /CUMM) 2.94 L Hgb (14.0 - 18.0 G/DL) 9.1 L Hct (42 - 52 %) 27.7 L MCV (80.0 - 94.0 FL) 94.1 H MCH (27.0 - 31.0 PG) 30.8 MCHC (33.0 - 37.0 G/DL) 32.7 L RDW (11.5 - 14.5 %) 15.6 H Plt Count (130 - 400 /CUMM) 156 MPV (7.4 - 10.4 FL) 9.7 Gran % (42.2 - 75.2 %) 93.4 H Lymphocytes % (20.5 - 51.1 %) 3.2 L Monocytes % (1.7 - 9.3 %) 2.8 Eosinophils % (0 - 5 %) 0.6 Basophils % (0.0 - 2.0 %) 0 Absolute Granulocytes (1.4 - 6.5 /CUMM) 11.3 H Segmented Neutrophils (42.2 - 75.2 %) 95 H Band Neutrophils (0.0 - 5.0 %) 1 Absolute Lymphocytes (1.2 - 3.4 /CUMM) 0.4 L Lymphocytes (20.5 - 51.1 %) 1 L Monocytes (1.7 - 9.3 %) 2 Absolute Monocytes (0.10 - 0.60 /CUMM) 0.3 Eosinophils (0 - 5.0 %) 1 Absolute Eosinophils (0.0 - 0.7 /CUMM) 0.1 Absolute Basophils (0.0 - 0.2 /CUMM) 0 Platelet Estimate (ADEQUATE) ADEQUATE Hypochromic-Microcytic 1+ Poikilocytosis 1+ Ovalocytes 1+ Other Body Source Fld Total RBCs Counted (%) 100 Last 24 Hours of Brendan Results: PEC #: [id number] BRIAN: 01/02/18 STATUS: RES RECD: 01/02/[address]: Bunny Munguia MD SOURCE: EXTREMITIE ENTR: 01/02/181320 OTHR DR: Karen MARTINEZ, Enma Merino SPDESC: KNEE RIGHT Shonda MARTINEZ,Joshua Martinez MD,Clinton Sinclair ORDERED: XTRMOR COMMENT: ADDITIONAL INFORMATION: MARROW RECEIVED ~2CC PIECE OF BONE MARROW IN STERILE CUP Procedure Result > GRAM STAIN Final 01/03/18144 WHITE BLOOD CELLS MODERATE OTHER NO ORGANISMS SEEN > EXTREMITIES OR SPECIMEN Preliminary 01/03/18 NO GROWTH AFTER 1 DAY SPEC #: [id number] BRIAN: 01/03/18 STATUS: WKST RECD: 01/03/[address]: Laron MARTINEZ, Kimmy SOURCE: BLOOD ENTR: 01/03/[address]: Karen MARTINEZ, Enma Merino SPDESC: 2ND/VENOUS Michelle MARTINEZ,Saul Gustafson MD ORDERED: BLOOD CULTURE Procedure Result BLOOD CULTURE PENDING Recent Imaging Studies: CXR 01/03 IMPRESSION: Cardiomegaly. Pleural effusions. DICTATED BY: Sam Contreras MD DATE/TIME DICTATED:01/03/182101 [employer] DE[employer] SUPERVISOR:SANDEEP Assessment/Plan ID Impression: 57-year-old man with a history of diabetes, coronary artery disease, status post angioplasty and stent over 3 months prior to admission, end-stage renal disease, maintained on hemodialysis Mondays, Wednesdays and Fridays via a left forearm fistula, status post a right BKA 8 years prior to admission, complicated by several infections of the stump secondary to MSSA, most recently 2-1/2 months prior to admission, with evidence of osteomyelitis at that time, and with a transthoracic echo revealing a possible mitral valve vegetation, treated with a 6 week course of Cefazolin, admitted on December 26 with lethargy and chills, found to be febrile with a normal white blood cell count and with blood cultures sepsis. Source of bacteremia still unclear; YULIA negative vegetations; now status post R AKA POD #2; evaluated for possible residual infection related to the right BKA stump (OR culture from 01/02 no growth to date). Another focus that may have been seeded from the recent bacteremia (10% patient w/ IE can develop diskitis). Question LLL infiltrate (CXR 12/30); repeat CXR on 01/03 after spiking fever revealing b/l pleural effusions; if persistent fever/hypotension Ct abd/pelvis eval occult abscess; also MRI spine to be considered. Leukocytosis/L shift Transaminatis postop; AST/ALT trending down Suggestion: 1. F/U repeat BC x2 from 01/03. Vancomycin 1 gm now post HD; trough level 01/06. 2. Trend CBC. 3. Consider d/c R TLC. 4. Call if spiking fever again.
[2018-01-04 16:00] VITALS: BP 92/50
[2018-01-04 18:20] LABS: PTT 66 SEC (25-37)
[2018-01-05] VITALS: BP 102/46
[2018-01-05 05:20] LABS: ABSOLUTE BASOPHIL COUNT 0 /CUMM (0.0-0.2); ABSOLUTE EOSINOPHIL COUNT 0.2 /CUMM (0.0-0.7); ABSOLUTE LYMPH COUNT 1.2 /CUMM (1.2-3.4); ABSOLUTE MONOCYTE COUNT 0.5 /CUMM (0.10-0.60); BASOPHIL % 0.3 % (0.0-2.0)
[2018-01-05 05:32] LABS: ABSOLUTE GRANULOCYTE CT 5.3 /CUMM (1.4-6.5); EOSINOPHIL % 2.2 % (0-5); MEAN CORPUSCULAR HGB 30.4 PG (27.0-31.0); MEAN CORPUSCULAR HGB CONC 32.3 G/DL (33.0-37.0); MEAN PLATELET VOLUME 9.6 FL (7.4-10.4); PLATELET COUNT 115 /CUMM (130-400); RBC DISTRIBUTION WIDTH 15.6 % (11.5-14.5); RED BLOOD CELL CT 2.23 /CUMM (4.70-6.10); WHITE BLOOD CELL COUNT 7.3 /CUMM (4.8-10.8)
[2018-01-05 05:36] LABS: HEMATOCRIT 20.9 % (42-52)
[2018-01-05 05:42] LABS: PTT 52 SEC (25-37)
--- NOTE | 2018-01-05 07:14 | PN- Resident CRCU ---
Cricket MARTINEZ,[facility] 01/05/18 0714: Subjective HPI/CRCU Issues: Patient seen and examined. Resting comfortably. Offers no complaints. Dressing to be changed today. Afebrile overnight. H&H is dropping from 9 to 05/03 to 21. We will transfuse 1 unit of blood. Repeat CBC psot transfusion. WBC count back to baseline Placement of pro-line today with , heparin drip since 5 AM. Plavix to be held today as well. ID is ok with line placement, we will touch base with nephrology for recommendations. IR will perform the procedure 24 Hour Events: Tmax 98 heart rate ranging in the 80s to 60s, blood pressure is 90s/40s to 60s 97% on room air Objective Vital Signs & I&O Last 8 Hrs of Vitals and I&O: Vital Signs Date Time Temp Pulse Resp B/P B/P Pulse O2 O2 Flow FiO2 Mean Ox Delivery Rate 01/05 0800 97 01/05 0800 97.8 86 22 100/60 97 Room Air 01/05 0643 69 98 01/05 0505 83 15 91/45 01/05 0400 98 CPAP Room Air 01/05 0318 68 99 01/05 0015 69 98 01/05 0000 99 CPAP Room Air 01/05 0000 97.9 80 15 102/46 99 CPAP Room Air 01/04 2302 76 97 01/04 2000 98 Room Air Room Air 01/04 1600 97 Room Air 01/04 1600 98.1 69 15 92/50 97 Room Air 01/04 1427 Nasal 1.0L Cannula 01/04 1426 Nasal 1.0L Cannula 01/04 1421 72 116/59 01/04 1418 Nasal 1.0L Cannula 01/04 1200 99 Nasal 1.0L Cannula Intake & Output 01/05 1600 01/05 0800 01/05 0000 Intake Total 335 669 Output Total 0 0 Balance 335 669 Intake, IV 335 549 Intake, Oral 0 120 Number 0 Bowel Movements Output, Urine 0 0 Exam General Appearance: no apparent distress, alert, anxious, comfortable, PALE Head: atraumatic Neck: normal inspection Cardiovascular: irregularly irregular Gastrointestinal: normal bowel sounds, soft Extremities: normal inspection Cranial Nerves: normal hearing, normal speech Skin: intact Other Physical Findings: DRESSING CHANGED TODAY S/P r aka Current Medications: Current Medications Sig/Bobo Start time Last Medication Dose Route Stop Time Status Admin Albumin Human 12.5 GM .Q30MIN PRN 01/02 1000 AC 01/04 IV 1058 Aspirin Buffered 81 MG DAILY 01/03 1000 AC 01/05 PO 1017 Cefazolin Sodium 2 GM 01/04 1000 AC 01/04 N/A 1 UNIT IV 1421 Cinacalcet 30 MG 1700 01/02 1700 AC 01/04 PO 1656 Clopidogrel Bisulfate 75 MG DAILY 01/03 1000 DC 01/04 PO 1419 Cyanocobalamin 1,000 MCG DAILY 01/03 1000 AC 01/05 PO 1017 Docusate Sodium 100 MG DAILY 01/03 1000 AC 01/05 PO 1017 Epoetin Jaron 2,000 UNIT DAILY NEEDED PRN 01/02 1645 AC 01/04 IV 1058 Epoetin Jaron 3,000 UNIT DAILY NEEDED PRN 01/02 1645 AC 01/04 IV 1058 Heparin Sodium 25,000 UNIT Q24H 01/03 0900 DC 01/04 (Porcine) IV 01/05 0500 0351 Sodium Chloride 500 ML Lidocaine/Prilocaine 1 GAVI DAILY PRN 01/02 1645 [facility] Morphine Sulfate 2 MG Q4P PRN 01/02 1430 AC 01/05 IV 0750 Multivitamins 1 TAB DAILY 01/03 1000 01/05 PO 1017 Norepinephrine 4 MG Q16H 01/04 1000 AC 01/05 Sodium Chloride 250 ML IV 0505 Norepinephrine 4 MG Q6H 01/04 0000 DC 01/04 Sodium Chloride 250 ML IV 0911 Sevelamer Carbonate 2,400 MG WM 01/02 1700 AC 01/04 PO 1655 Vancomycin HCl 1,000 MG ONCE ONE 01/04 1400 DC 01/04 Dextrose/Water 250 ML IV 01/04 1459 1536 Impression/Plan Impression/Problem List Impression: Patient is a 57-year-old male with past medical history significant for peripheral arterial disease status post right [id number] amputation, end- stage renal disease on hemodialysis, coronary artery disease status post PCI and 1 drug-eluting stent in the left main circumflex artery (September 2017) and status post quadruple CABG (2006), diabetes, history of obstructive sleep apnea on CPAP at night, chronic anemia, most recent admission for septic arthritis and staph aureus sepsis, mitral valve endocarditis, osteomyelitis, history of C. difficile presented this admission after he was found to be hypotensive and tachycardic during dialysis with report of recent fatigue and dyspnea. #Respiratory Stable. Pt on RA and satting well. -Continue CPAP at night Infectious #Septic shock secondary to unknown source: Differential includes , osteoporosis/ BKA stump infection, endocarditis, healthcare associated pneumonia given CAT scan findings. He is status post AKA postop day 3 -SAM negative for vegetations -BCX x2 + MSSA; 2 set negative. 3rd set was drawn in setting of fever spike and leukocytosis with left shift negative so far -Aspirate of collection of R. knee so far negative. -Previously R. femoral TLC 12/26 needs to come out given MSSA bacteremia x2, he underwent placement of right IJ 01/04, In context of fever spike and leukocytosis that is a possibility that IT is infected. Patient to undergo pro-line non- tunneled catheter placement by IR today and RIJ will be removed -Patient received vancomycin x1 yesterday 01/04 and we are going to continue cefazolin 2g daily after dialysis -Vancomycin trough on 01/06 at 5am -Patient should be reimaged, plan for now is to do CT scan with IV contrast chest abdomen pelvis and spine before dialysis to look for seeding or source of infection. Cardiovascular #Atrial fibrillation: Pt paroxysmal afib and is itnermittently going in and out of a. fib. Pt started on Heparin on 12/28/2017. Likely cause of sepsis versus mitral valve regurgitation -Patient had an episode of atrial fibrillation today which resolved. -Heparin drip on hold for anticipated procedure #Hypotension: Patient has right IJ inserted on 12/30. He is currently on 2 mics of levo fed -Attempt to wean him off today. Given that his nml BP is around 90s systolic will titrate his MAP to 60. Levophed as necessary #Type II DC: RESOLVED. Peak troponin .23 on Dec 27, 2017. #CAD s/p stent and CABG : Chronic and stable -Continue Aspirin and Clopidogrel -Continue statin initially held in setting of transaminitis. #Mitral regurgitation and possible perforation on SAM -Possible mitral valve surgery as an outpatient Hemetology #Anemia H/H dropped from 08/04 to 6.8 Hemoglobin 8 to 9 is his baseline. He recieved 1 unit pRBCS postop on 01/03 -We are going to transfuse 1 unit -Repeat CBC after the transfusion -Since he is on dual antiplatelet therapy in setting of dropping H&H we will reassess the patient before starting IV heparin cardiology is on board -Patient should be imaged for any possible retroperitoneal bleed #Leukocytosis resolved Metabolic #Transaminitis Likely secondary to postop. -Continue to monitor LFTs have trended down to normal Alimentary #Dialysis diet #No documentation of bowel movement continue Colace MiraLAX and Nephrology #ESRD: -Dialysis on / -Continue Epojen, Sensipar and Sevelamer -CT scan with IV contrast planned before dialysis -Use 12.5 g of 25% IV albumin Q30 PRN for SBP <100 for BP maintaince during dialysis DVT prophylaxis IV heparin on hold for now, reassess and restart We will start patient on subcutaneous heparin for DVT prophylaxis if Drip to be held longer Problem List: 1. A-fib Pain Ratin Tomorrow's Labs & Rationales: cbc bep lfts Plan DVT/Prophylaxis: Saul Toscano MD 01/05/18 1033: Attending MD Review Statement Attending Sign Off Attending Cosign Statement: I have: examined this patient, reviewed avalbl EMR data, personally reviewd images, discussd w/resident/PA/MIRROR SILVERER, discussed mgmt plan w/whit, discussed mgmt plan w/CM, discussed mgmt plan w/pt, agreed w/resident/PA/MIRROR SILVERER, amended to note. Other Findings: ISaul M.D. have examined this patient, reviewed available EMR data, personally reviewed images, discussed with resident/PA/MIRROR SILVERER, discussed management plan with housestaff and nursing staff, discussed managment plan all of healthcare providers, discussed management plan with patient and/or family, agreed with resident/PA/MIRROR SILVERER. The past history and parts of the chart have been autopopulated. Impression 57 year old man * staph aureus sepsis * s/p aka * ESRD on HD * chronic anemia * a.fib on heparin gtt * s/p sam showing ? perforation in posterior leaflet without obvious clinical significance and will require surveillance Plan -plan for proline -check cbc after transfusion, if any issues, will require imaging non-contrast to rule out bleed -f/u nephrology, ID, vascular surgery, cardiology -again febrile, pressors -monitor cbc -HD per renal DVT prophylaxis at all times TTS 35 min
[2018-01-05 08:00] VITALS: BP 100/60
--- NOTE | 2018-01-05 09:10 | PN- Vascular Surgery ---
Surgical Brief Attending Note Brief Attending Note: VASCULAR ATTENDING NOTE: Pt. now POD #3 s/p AKA. Events noted. + fever last night.\ PE: Dressing changed, wound c/d/i A/P 1.) Cont. medical care 2.) Cont. ID/support 3.) OOB to chair 4.) Cont. observation and dry dressing to R. AKA site 5.) Cultures from OR NTD
--- NOTE | 2018-01-05 11:22 | PN- Cardiology ---
Subjective Subjective: Telemetry sinus rhythm with paroxysmal atrial fibrillation at times. IV heparin is on hold pending a procedure. Objective Vital Signs and I&Os Vital Signs Date Time Temp Pulse Resp B/P B/P Pulse O2 O2 Flow FiO2 Mean Ox Delivery Rate 01/05 0800 97 01/05 0800 97.8 86 22 100/60 97 Room Air 01/05 0643 69 98 03/ 0505 83 15 91/45 03 0400 98 CPAP Room Air 01/05 0318 68 99 03 0015 69 98 03 0000 99 CPAP Room Air 01/05 0000 97.9 80 15 102/46 99 CPAP Room Air 01/04 2302 76 97 01/04 2000 98 Room Air Room Air 01/04 1600 97 Room Air 01/04 1600 98.1 69 15 92/50 97 Room Air 01/04 1427 Nasal 1.0L Cannula 01/04 1426 Nasal 1.0L Cannula 01/04 1421 72 116/59 01/04 1418 Nasal 1.0L Cannula 01/04 1200 99 Nasal 1.0L Cannula Intake & Output 01/05 1600 01/05 0800 03/ 0000 01/04 1600 01/04 0800 01/04 0000 Intake Total 335 669 630 727 438 Output Total 0 0 2000 Balance 335 669 -1370 727 438 Intake, IV 335 549 390 477 238 Intake, Oral 0 120 240 250 200 Number 0 0 0 Bowel Movements Output, 2000 Dialysate Output, Urine 0 0 0 Physical Exam: On exam patient is comfortable. Responsive alert and oriented. Patient appears pale. Head normocephalic atraumatic Eyes sclera anicteric conjunctiva showed pallor extraocular muscles were normal Chest lungs were clear bilaterally Heart regular rhythm with a grade 2/6 midsystolic murmur in the apex Abdomen soft no organomegaly Extremities Neurological no gross motor deficits Current Medications: Current Medications Sig/Bobo Start time Last Medication Dose Route Stop Time Status Admin Albumin Human 12.5 GM .Q30MIN PRN 01/02 1000 AC 01/04 IV 1058 Aspirin Buffered 81 MG DAILY 01/03 1000 AC 01/05 PO 1017 Cefazolin Sodium 2 GM 01/04 1000 AC 01/04 N/A 1 UNIT IV 1421 Cinacalcet 30 MG 1700 01/02 1700 AC 01/04 PO 1656 Clopidogrel Bisulfate 75 MG DAILY 01/03 1000 DC 01/04 PO 1419 Cyanocobalamin 1,000 MCG DAILY 01/03 1000 AC 01/05 PO 1017 Docusate Sodium 100 MG DAILY 01/03 1000 AC 01/05 PO 1017 Epoetin Jaron 2,000 UNIT DAILY NEEDED PRN 01/02 1645 AC 01/04 IV 1058 Epoetin Jaron 3,000 UNIT DAILY NEEDED PRN 01/02 1645 AC 01/04 IV 1058 Heparin Sodium 25,000 UNIT Q24H 01/03 0900 DC 01/04 (Porcine) IV 01/05 0500 0351 Sodium Chloride 500 ML Lidocaine/Prilocaine 1 GAVI DAILY PRN 01/02 1645 TOP Morphine Sulfate 2 MG Q4P PRN 01/02 1430 AC 01/05 IV 0750 Multivitamins 1 TAB DAILY 01/03 1000 AC 01/05 PO 1017 Norepinephrine 4 MG Q16H 01/04 1000 AC 01/05 Sodium Chloride 250 ML IV 0505 Norepinephrine 4 MG Q6H 01/04 0000 DC 01/04 Sodium Chloride 250 ML IV 0911 Sevelamer Carbonate 2,400 MG WM 01/02 1700 AC 01/04 PO 1655 Vancomycin HCl 1,000 MG ONCE ONE 01/04 1400 DC 01/04 Dextrose/Water 250 ML IV 01/04 1459 1536 Results Last 48 Hrs of Labs/Mics: Laboratory Tests 01/05/18 0450: Anion Gap 9, Estimated GFR 16 L, Glucose 126 H, Calcium 8.4, Phosphorus 3.4, Magnesium 2.0, Total Bilirubin 0.2, AST 50, ALT 42, Albumin 2.7 L, PT 13.0 H, INR 1.24 H, APTT 52 H, CBC w Diff NO MAN DIFF REQ, RBC 2.23 L, MCV 94.0, MCH 30.4, MCHC 32.3 L, RDW 15.6 H, MPV 9.6, Gran % 73.0, Lymphocytes % 17.0 L, Monocytes % 7.5, Eosinophils % 2.2, Basophils % 0.3, Absolute Granulocytes 5.3, Absolute Lymphocytes 1.2, Absolute Monocytes 0.5, Absolute Eosinophils 0.2, Absolute Basophils 0 01/04/18 1700: APTT 66 H 01/04/18 0345: Anion Gap 15, Estimated GFR 11 L, Glucose 148 H, Calcium 8.5, Phosphorus 4.1, Magnesium 1.9, Total Bilirubin 0.5, AST 106 H, ALT 69, Albumin 3.2 L, APTT 78 H, CBC w Diff MAN DIFF ORDERED, RBC 2.94 L, MCV 94.1 H, MCH 30.8, MCHC 32.7 L , RDW 15.6 H, MPV 9.7, Gran % 93.4 H, Lymphocytes % 3.2 L, Monocytes % 2.8, Eosinophils % 0.6, Basophils % 0, Absolute Granulocytes 11.3 H, Segmented Neutrophils 95 H, Band Neutrophils 1, Absolute Lymphocytes 0.4 L, Lymphocytes 1 L, Monocytes 2, Absolute Monocytes 0.3, Eosinophils 1, Absolute Eosinophils 0.1, Absolute Basophils 0, Platelet Estimate ADEQUATE, Hypochromic-Microcytic 1+ , Poikilocytosis 1+, Ovalocytes 1+, Fld Total RBCs Counted 100 01/03/18 2200: APTT 52 H 01/03/18 1610: APTT 50 H Assessment/Plan Assessment/Plan In summary this 57-year-old gentleman has the following problems 1. Coronary disease by history status post coronary bypass surgery 2006 with complex PCI to the left main into the circumflex September 2017 with normal LV function 2. Hx of Hypertension 3. Peripheral arterial disease status post prior amputation now S/P right AKA 4. End-stage renal disease on dialysis 5. 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 Repeat YULIA to 01/02/18 was negative for vegetations; however, with severe mitral regurgitation and possible perforation 6. Diabetes 7. Fever and chills with hypotension most likely secondary to sepsis. 8. Elevated troponins, minimal, not due to ACS 9. Intermittent atrial fibrillation possibly due to sepsis He received transfusions, his hematocrit continues to downwards without any obvious sews of bleed. This may be related to overriding sepsis. He appears quite oriented and alert and aware of things around. He has no chest pain or unusual shortness of breath. He is on dual antiplatelet agents. Paroxysmal atrial fibrillation may be related to stress of sepsis,mitral valve disease. He is also at high risk for bleeding based on his renal disease,Has Bled score, and I would not hesitate to hold off especially on IV heparin in the presence of dual antiplatelet agents particularly if his hematocrit keeps drifting downwards with needs for repeat transfusions. Hopefully a beta debbi can be initiated he would add low-dose.Metoprolol tartarate 12.5 mg twice a day to counteract increased adrenergic drive related to pressors or infection. Continue telemetry? Yes
--- NOTE | 2018-01-05 11:52 | PN- Infect Dx ---
Subjective Subjective: No fever today. No new c/o. S/P L IJ TLC placement Review of Systems Comments: 12 points reviewed as noted, otherwise neg. Objective Last 24 Hrs of Vital Signs/I&O Vital Signs Date Time Temp Pulse Resp B/P B/P Pulse O2 O2 Flow FiO2 Mean Ox Delivery Rate 01/05 0800 97 01/05 08 97.8 86 22 100/60 97 Room Air 01/05 0643 69 98 01/05 0505 83 15 91/45 01/05 0400 98 CPAP Room Air 01/05 0318 68 99 01/05 0015 69 98 01/05 0000 99 CPAP Room Air 01/05 0000 97.9 80 15 102/46 99 CPAP Room Air 01/04 2302 76 97 01/04 2000 98 Room Air Room Air 01/04 1600 97 Room Air 01/04 1600 98.1 69 15 92/50 97 Room Air 01/04 1427 Nasal 1.0L Cannula 01/04 1426 Nasal 1.0L Cannula 01/04 1421 72 116/59 01/04 1418 Nasal 1.0L Cannula 01/04 1200 99 Nasal 1.0L Cannula Intake & Output 01/05 1600 01/05 0800 01/05 0000 Intake Total 335 669 Output Total 0 0 Balance 335 669 Intake, IV 335 549 Intake, Oral 0 120 Number 0 Bowel Movements Output, Urine 0 0 Physical Exam Other Physical Findings: General Appearance: well nourished, no apparent distress, alert, awake HEENT: NC/AT, anicteric sclera, MMM NECK: Supple, no JVD, trachea midline, RIJ TLC CARD: Normal S1/S2 w/o m/g/r; RRR PULM: CTA bilaterally ABD: Soft, NT, ND, BS+ NEURO: Awake and alert, CN II-XII grossly intact EXT: right AKA, normal pulses, no edema SKIN: pale Results Last 24 Hours of Lab Results: Laboratory Tests 01/05 01/04 0450 1700 Chemistry Sodium (137 - 145 mmol/L) 137 Potassium (3.5 - 5.1 mmol/L) 3.8 Chloride (98 - 107 mmol/L) 100 Carbon Dioxide (22 - 30 mmol/L) 28 Anion Gap (5 - 16) 9 BUN (9 - 20 mg/dL) 25 H Creatinine (0.7 - 1.2 mg/dL) 4.0 H Estimated GFR (>60 ml/min) 16 L Glucose (65 - 99 mg/dL) 126 H Calcium (8.4 - 10.2 mg/dL) 8.4 Phosphorus (2.5 - 4.5 mg/dL) 3.4 Magnesium (1.6 - 2.3 mg/dL) 2.0 Total Bilirubin (0.2 - 1.3 mg/dL) 0.2 AST (17 - 59 U/L) 50 ALT (21 - 72 U/L) 42 Albumin (3.5 - 5.0 g/dL) 2.7 L Coagulation PT (9.4 - 12.5 SEC) 13.0 H INR (0.90 - 1.17) 1.24 H APTT (25 - 37 SEC) 52 H 66 H Hematology CBC w Diff NO MAN DIFF REQ WBC (4.8 - 10.8 /CUMM) 7.3 RBC (4.70 - 6.10 /CUMM) 2.23 L Hgb (14.0 - 18.0 G/DL) 6.8 *L Hct (42 - 52 %) 20.9 L MCV (80.0 - 94.0 FL) 94.0 MCH (27.0 - 31.0 PG) 30.4 MCHC (33.0 - 37.0 G/DL) 32.3 L RDW (11.5 - 14.5 %) 15.6 H Plt Count (130 - 400 /CUMM) 115 L MPV (7.4 - 10.4 FL) 9.6 Gran % (42.2 - 75.2 %) 73.0 Lymphocytes % (20.5 - 51.1 %) 17.0 L Monocytes % (1.7 - 9.3 %) 7.5 Eosinophils % (0 - 5 %) 2.2 Basophils % (0.0 - 2.0 %) 0.3 Absolute Granulocytes (1.4 - 6.5 /CUMM) 5.3 Absolute Lymphocytes (1.2 - 3.4 /CUMM) 1.2 Absolute Monocytes (0.10 - 0.60 /CUMM) 0.5 Absolute Eosinophils (0.0 - 0.7 /CUMM) 0.2 Absolute Basophils (0.0 - 0.2 /CUMM) 0 Last 24 Hours of Brendan Results: BXC's x2 01/03 NGTD Nasal MRSA surv cx neg 01/02. 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 Source of bacteremia still unclear; YULIA negative vegetations; now status post R AKA POD #2; evaluated for possible residual infection related to the right BKA stump (OR culture from 01/02 no growth to date), BC 01/03 neg. Another focus that may have been seeded from the recent bacteremia (10% patient w/ IE can develop diskitis). Question LLL infiltrate (CXR 12/30); repeat CXR on 01/03 after spiking fever previous day revealing b/l pleural effusions; if persistent fever/hypotension Ct abd/pelvis eval occult abscess; also MRI spine to be considered. Leukocytosis/L shift previous day; now resolved Transaminatis postop Worsening anemia Suggestion: 1. Cont cefazolin 2 gm post HD for 4 weeks 2. Trend CBC. 3. Call if spiking fever again.
--- NOTE | 2018-01-05 13:08 | PN- Nephrology ---
Assessment/Plan Nephrology Assessment: ESRD - No HD need today. Anemia - Hg drop to 6.8. Epogen had been 5000U TIW (dose as outpatient). Will increase to 7000U TIW. MSSA bacteremia - cultures cleared although recently febrile and remains in shock. Dialysis access looks OK and unlikely to be the source. Suggestion: -HD tomorrow -Increase Epogen to 7000U TIW Please call [phone] with ?'s Subjective Subjective: On pressors No somatic complaints Afebrile; no positive cultures since 12/26; WBC down to 7.3 No new studies Objective Vital Signs and I&Os Vital Signs Date Time Temp Pulse Resp B/P B/P Pulse O2 O2 Flow FiO2 Mean Ox Delivery Rate 01/05 0800 97 01/05 0800 97.8 86 22 100/60 97 Room Air 01/05 0643 69 98 01/05 0505 83 15 91/45 01/05 0400 98 CPAP Room Air 01/05 0318 68 99 01/05 0015 69 98 01/05 0000 99 CPAP Room Air 01/05 0000 97.9 80 15 102/46 99 CPAP Room Air 01/04 2302 76 97 01/04 2000 98 Room Air Room Air 01/04 1600 97 Room Air 01/04 1600 98.1 69 15 92/50 97 Room Air 01/04 1427 Nasal 1.0L Cannula 01/04 1426 Nasal 1.0L Cannula 01/04 1421 72 116/59 01/04 1418 Nasal 1.0L Cannula Intake & Output 01/05 1600 01/05 0400 01/04 1600 01/04 0400 01/03 1600 01/03 0400 Intake Total 057 286 9716 438 436 30 Output Total 0 0 2000 0 0 Balance 335 669 -643 438 436 30 Intake, IV 335 549 867 238 196 30 Intake, Oral 0 120 490 200 240 Number 0 0 0 Bowel Movements Output, 1999 Dialysate Output, Urine 0 0 0 0 0 Patient 210 lb Weight Weight Bed scale Measurement Method Physical Exam: Gen - OK appearing HEENT - supple CV - RRR, no m/r/g Chest - clear anteriorly Abd - soft, NTND Ext - +edema, s/p RLE amputation; LLA AVF +thrill/+bruit Neuro - AOX3, grossly nonfocal Current Medications: Current Medications Sig/Bobo Start time Last Medication Dose Route Stop Time Status Admin Albumin Human 12.5 GM .Q30MIN PRN 01/02 1000 AC 01/04 IV 1058 Aspirin Buffered 81 MG DAILY 01/03 1000 AC 01/05 PO 1017 Cefazolin Sodium 2 GM 01/04 1000 01/04 N/A 1 UNIT IV 1421 Cinacalcet 30 MG 1700 01/02 1700 AC 01/04 PO 1656 Clopidogrel Bisulfate 75 MG DAILY 01/03 1000 ND 01/04 PO 1419 Cyanocobalamin 1,000 MCG DAILY 01/03 1000 AC 01/05 PO 1017 Docusate Sodium 100 MG DAILY 01/03 1000 AC 01/05 PO 1017 Epoetin Jaron 2,000 UNIT DAILY NEEDED PRN 01/02 1645 AC 01/04 IV 1058 Epoetin Jaron 3,000 UNIT DAILY NEEDED PRN 01/02 1645 01/04 IV 1058 Heparin Sodium 25,000 UNIT Q24H 01/03 0900 DC 01/04 (Porcine) IV 01/05 0500 0351 Sodium Chloride 500 ML Lidocaine/Prilocaine 1 GAVI DAILY PRN 01/02 1645 [facility] Morphine Sulfate 2 MG Q4P PRN 01/02 1430 01/05 IV 1259 Multivitamins 1 TAB DAILY 01/03 1000 01/05 PO 1017 Norepinephrine 4 MG Q16H 01/04 1000 01/05 Sodium Chloride 250 ML IV 0505 Sevelamer Carbonate 2,400 MG WM 01/02 1700 AC 01/04 PO 1655 Vancomycin HCl 1,000 MG ONCE ONE 01/04 1400 DC 01/04 Dextrose/Water 250 ML IV 01/04 1459 1536 Results Pertinent Lab Results: Laboratory Tests 01/05 01/04 0450 1700 Chemistry Sodium (137 - 145 mmol/L) 137 Potassium (3.5 - 5.1 mmol/L) 3.8 Chloride (98 - 107 mmol/L) 100 Carbon Dioxide (22 - 30 mmol/L) 28 Anion Gap (5 - 16) 9 BUN (9 - 20 mg/dL) 25 H Creatinine (0.7 - 1.2 mg/dL) 4.0 H Estimated GFR (>60 ml/min) 16 L Glucose (65 - 99 mg/dL) 126 H Calcium (8.4 - 10.2 mg/dL) 8.4 Phosphorus (2.5 - 4.5 mg/dL) 3.4 Magnesium (1.6 - 2.3 mg/dL) 2.0 Total Bilirubin (0.2 - 1.3 mg/dL) 0.2 AST (17 - 59 U/L) 50 ALT (21 - 72 U/L) 42 Albumin (3.5 - 5.0 g/dL) 2.7 L Coagulation PT (9.4 - 12.5 SEC) 13.0 H INR (0.90 - 1.17) 1.24 H APTT (25 - 37 SEC) 52 H 66 H Hematology CBC w Diff NO MAN DIFF REQ WBC (4.8 - 10.8 /CUMM) 7.3 RBC (4.70 - 6.10 /CUMM) 2.23 L Hgb (14.0 - 18.0 G/DL) 6.8 *L Hct (42 - 52 %) 20.9 L MCV (80.0 - 94.0 FL) 94.0 MCH (27.0 - 31.0 PG) 30.4 MCHC (33.0 - 37.0 G/DL) 32.3 L RDW (11.5 - 14.5 %) 15.6 H Plt Count (130 - 400 /CUMM) 115 L MPV (7.4 - 10.4 FL) 9.6 Gran % (42.2 - 75.2 %) 73.0 Lymphocytes % (20.5 - 51.1 %) 17.0 L Monocytes % (1.7 - 9.3 %) 7.5 Eosinophils % (0 - 5 %) 2.2 Basophils % (0.0 - 2.0 %) 0.3 Absolute Granulocytes (1.4 - 6.5 /CUMM) 5.3 Absolute Lymphocytes (1.2 - 3.4 /CUMM) 1.2 Absolute Monocytes (0.10 - 0.60 /CUMM) 0.5 Absolute Eosinophils (0.0 - 0.7 /CUMM) 0.2 Absolute Basophils (0.0 - 0.2 /CUMM) 0 01/04 01/03 01/03 0345 2200 1610 Chemistry Sodium (137 - 145 mmol/L) 139 Potassium (3.5 - 5.1 mmol/L) 4.0 Chloride (98 - 107 mmol/L) 100 Carbon Dioxide (22 - 30 mmol/L) 24 Anion Gap (5 - 16) 15 BUN (9 - 20 mg/dL) 33 H Creatinine (0.7 - 1.2 mg/dL) 5.6 *H Estimated GFR (>60 ml/min) 11 L Glucose (65 - 99 mg/dL) 148 H Calcium (8.4 - 10.2 mg/dL) 8.5 Phosphorus (2.5 - 4.5 mg/dL) 4.1 Magnesium (1.6 - 2.3 mg/dL) 1.9 Total Bilirubin (0.2 - 1.3 mg/dL) 0.5 AST (17 - 59 U/L) 106 H ALT (21 - 72 U/L) 69 Albumin (3.5 - 5.0 g/dL) 3.2 L Coagulation APTT (25 - 37 SEC) 78 H 52 H 50 H Hematology CBC w Diff MAN DIFF ORDERED WBC (4.8 - 10.8 /CUMM) 12.1 H RBC (4.70 - 6.10 /CUMM) 2.94 L Hgb (14.0 - 18.0 G/DL) 9.1 L Hct (42 - 52 %) 27.7 L MCV (80.0 - 94.0 FL) 94.1 H MCH (27.0 - 31.0 PG) 30.8 MCHC (33.0 - 37.0 G/DL) 32.7 L RDW (11.5 - 14.5 %) 15.6 H Plt Count (130 - 400 /CUMM) 156 MPV (7.4 - 10.4 FL) 9.7 Gran % (42.2 - 75.2 %) 93.4 H Lymphocytes % (20.5 - 51.1 %) 3.2 L Monocytes % (1.7 - 9.3 %) 2.8 Eosinophils % (0 - 5 %) 0.6 Basophils % (0.0 - 2.0 %) 0 Absolute Granulocytes (1.4 - 6.5 /CUMM) 11.3 H Segmented Neutrophils (42.2 - 75.2 %) 95 H Band Neutrophils (0.0 - 5.0 %) 1 Absolute Lymphocytes (1.2 - 3.4 /CUMM) 0.4 L Lymphocytes (20.5 - 51.1 %) 1 L Monocytes (1.7 - 9.3 %) 2 Absolute Monocytes (0.10 - 0.60 /CUMM) 0.3 Eosinophils (0 - 5.0 %) 1 Absolute Eosinophils (0.0 - 0.7 /CUMM) 0.1 Absolute Basophils (0.0 - 0.2 /CUMM) 0 Platelet Estimate (ADEQUATE) ADEQUATE Hypochromic-Microcytic 1+ Poikilocytosis 1+ Ovalocytes 1+ Other Body Source Fld Total RBCs Counted (%) 100 01/03 0425 Chemistry Sodium (137 - 145 mmol/L) 137 Potassium (3.5 - 5.1 mmol/L) 4.1 Chloride (98 - 107 mmol/L) 101 Carbon Dioxide (22 - 30 mmol/L) 27 Anion Gap (5 - 16) 9 BUN (9 - 20 mg/dL) 22 H Creatinine (0.7 - 1.2 mg/dL) 4.3 H Estimated GFR (>60 ml/min) 14 L Glucose (65 - 99 mg/dL) 72 Calcium (8.4 - 10.2 mg/dL) 8.4 Phosphorus (2.5 - 4.5 mg/dL) 4.2 Magnesium (1.6 - 2.3 mg/dL) 1.9 Total Bilirubin (0.2 - 1.3 mg/dL) 0.5 AST (17 - 59 U/L) 243 H ALT (21 - 72 U/L) 123 H Albumin (3.5 - 5.0 g/dL) 2.8 L Hematology CBC w Diff NO MAN DIFF REQ WBC (4.8 - 10.8 /CUMM) 4.5 L RBC (4.70 - 6.10 /CUMM) 2.47 L Hgb (14.0 - 18.0 G/DL) 7.6 L Hct (42 - 52 %) 22.9 L MCV (80.0 - 94.0 FL) 93.0 MCH (27.0 - 31.0 PG) 30.8 MCHC (33.0 - 37.0 G/DL) 33.1 RDW (11.5 - 14.5 %) 15.5 H Plt Count (130 - 400 /CUMM) 118 L MPV (7.4 - 10.4 FL) 9.3 Gran % (42.2 - 75.2 %) 70.3 Lymphocytes % (20.5 - 51.1 %) 21.1 Monocytes % (1.7 - 9.3 %) 5.5 Eosinophils % (0 - 5 %) 2.6 Basophils % (0.0 - 2.0 %) 0.5 Absolute Granulocytes (1.4 - 6.5 /CUMM) 3.1 Absolute Lymphocytes (1.2 - 3.4 /CUMM) 0.9 L Absolute Monocytes (0.10 - 0.60 /CUMM) 0.2 Absolute Eosinophils (0.0 - 0.7 /CUMM) 0.1 Absolute Basophils (0.0 - 0.2 /CUMM) 0 Imaging/Other Studies: YULIA CONCLUSIONS Normal LV chamber size, wall thickness and systolic function. The estimated LVEF is 55%. There are no focal wall motion of modalities. The mitral valve is thickened and has poor coaptation. There is moderate mitral annular calcification. There is a possible perforation seen within the posterior leaflet. There is severe mitral regurgitation. No vegetations are seen. No cardiac vegetations are seen.
[2018-01-05 14:16] LABS: ABSOLUTE BASOPHIL COUNT 0 /CUMM (0.0-0.2); ABSOLUTE EOSINOPHIL COUNT 0.2 /CUMM (0.0-0.7); ABSOLUTE LYMPH COUNT 1.3 /CUMM (1.2-3.4); ABSOLUTE MONOCYTE COUNT 0.6 /CUMM (0.10-0.60); BASOPHIL % 0.3 % (0.0-2.0); EOSINOPHIL % 2.5 % (0-5); MEAN CORPUSCULAR HGB 29.6 PG (27.0-31.0); MEAN CORPUSCULAR HGB CONC 31.7 G/DL (33.0-37.0); MEAN CORPUSCULAR VOLUME 93.3 FL (80.0-94.0); MEAN PLATELET VOLUME 9.5 FL (7.4-10.4); PLATELET COUNT 127 /CUMM (130-400); RBC DISTRIBUTION WIDTH 16.6 % (11.5-14.5); WHITE BLOOD CELL COUNT 7.2 /CUMM (4.8-10.8)
[2018-01-05 14:24] LABS: HEMATOCRIT 26.1 % (42-52)
[2018-01-05 16:00] VITALS: BP 100/50
--- NOTE | 2018-01-05 17:07 | INTERVENTIONAL RADIOLOGY RPT ---
CLINICAL HISTORY: The patient is a 57-year-old male with sepsis on pressors and who needs central venous access for medical management. PROCEDURES: 1. Real-time ultrasound-guided access into the left internal jugular vein after documentation of selected vessel patency, and permanent imaging storing in the patient records. 2. Placement of a 7 [place] central venous triple-lumen catheter PHYSICIANS: Dr. Prabhakar Tavares (attending). MEDICATIONS: 1. 7 mL 1% lidocaine subcutaneous. 2. 5 mL of 100 unit per mL of heparin solution to lock the catheter. COMPLICATIONS: None. ESTIMATED BLOOD LOSS: <5 mL. IMPLANT: Arrow 7 [place] triple-lumen catheter. CONTRAST: None. FLUOROSCOPY TIME: 0.4 minutes. DAP: 2.4 PROCEDURE NOTE: Informed consent was obtained from the patient prior to the procedure. During this process, the procedure and potential alternatives were explained along with the intended outcome and benefits. The risks of the procedure, including the possibility of an unsuccessful procedure, as well as the risk of not doing the procedure, were discussed. The patient was given the opportunity to ask questions regarding the procedure and appeared competent to make decisions. A signed consent form documenting this discussion was placed in the medical record. A time-out procedure was performed. The patient was placed supine on the fluoroscopy table. The left neck and chest were prepped and draped in usual sterile fashion. All elements of maximal sterile barrier technique followed including use of cap, mask, sterile gown, sterile gloves, a sterile full body drape and hand hygiene. Also followed skin preparation with 2% chlorhexidine for cutaneous antisepsis, and sterile ultrasound preparation with sterile gel and probe cover when applicable. Ultrasound-guided vascular access: Ultrasound was used to identify the internal jugular vein. The internal jugular vein was confirmed to be patent. Real time imaging confirmed needle access into the internal jugular vein. An image was saved for permanent recording in PACS. Venous access was achieved into the left IJ vein using ultrasound and fluoroscopic guidance with a a 21-gauge needle. The guidewire was advanced centrally and into the IVC for purchase. A small skin madelyn was made at the access site. The microwire was exchanged for an 035 J-wire. The tract was dilated using a 7 [place] fascial dilator. A 7 [place] triple-lumen central venous catheter was advanced over the wire. The wire was removed and the catheter was retracted to the cavoatrial junction. All 3 lumens of the catheter were tested, all flushing and aspirating well. The catheter was then hep-locked. The catheter was sutured to the skin with 2-0 silk. A Biopatch was placed around the catheter at the skin entrance site and then a sterile Tegaderm was applied. The patient was transferred to recovery in stable condition. FINDINGS: 1. Patent left IJ vein. 2. Tip of the central venous catheter at the upper right atrium. 3. Catheter flushes and aspirates well. 4. No pneumothorax. IMPRESSION: Successful and uncomplicated placement of an 7 [place] triple lumen central venous catheter for venous access. The catheter may be used immediately.
[2018-01-05 21:34] LABS: ABSOLUTE BASOPHIL COUNT 0 /CUMM (0.0-0.2); ABSOLUTE EOSINOPHIL COUNT 0.1 /CUMM (0.0-0.7); ABSOLUTE GRANULOCYTE CT 4.5 /CUMM (1.4-6.5); ABSOLUTE LYMPH COUNT 1.3 /CUMM (1.2-3.4); ABSOLUTE MONOCYTE COUNT 0.6 /CUMM (0.10-0.60); BASOPHIL % 0.4 % (0.0-2.0); GRANULOCYTE % 69.5 % (42.2-75.2); HEMATOCRIT 24.6 % (42-52); MEAN CORPUSCULAR HGB 30.5 PG (27.0-31.0); MEAN CORPUSCULAR HGB CONC 32.7 G/DL (33.0-37.0); MEAN CORPUSCULAR VOLUME 93.1 FL (80.0-94.0); MEAN PLATELET VOLUME 9.1 FL (7.4-10.4); PLATELET COUNT 142 /CUMM (130-400); RBC DISTRIBUTION WIDTH 16.1 % (11.5-14.5); RED BLOOD CELL CT 2.64 /CUMM (4.70-6.10); WHITE BLOOD CELL COUNT 6.5 /CUMM (4.8-10.8)
[2018-01-06] VITALS: BP 110/60
--- NOTE | 2018-01-06 05:37 | CT SCAN REPORT ---
EXAMINATION: CT CERVICAL SPINE WITH CONTRAST CLINICAL INFORMATION: Fever with elevated white blood cell count. COMPARISON: None. TECHNIQUE: Contiguous helical images of the cervical spine were obtained after administration of 121 mL of Optiray 320 IV contrast in conjunction with the body CT. Multiplanar reconstructions were performed. DLP: 395 mGy-cm FINDINGS: The cervical vertebra are in normal alignment. Vertebral body heights are preserved. There is disc space narrowing at the C4-C5 level with endplate irregularity. The appearance favors Schmorl's nodes. Remaining disc spaces are maintained.. There are no fractures. There is no prevertebral soft tissue swelling. There is no cervical lymphadenopathy. The visualized base of the brain is unremarkable. The visualized lung apices are clear. IMPRESSION: Degenerative changes at the C4-C5 level with disc space narrowing and endplate irregularity. The appearance is not destructive to the point of discitis/osteomyelitis. No suspicious infectious findings.
--- NOTE | 2018-01-06 05:42 | CT SCAN REPORT ---
EXAMINATION: CT CHEST WITH CONTRAST CT ABDOMEN AND PELVIS WITH CONTRAST CLINICAL INFORMATION: Fever with elevated white blood cell count. COMPARISON: 10/25/2017 TECHNIQUE: Multidetector volumetric imaging was performed through the chest, abdomen and pelvis following the administration of 121 mL of Optiray 320 intravenous contrast. Sagittal and coronal reformatted images were obtained on the technologist's workstation. Axial MIP volume rendering provided. DLP: 996 mGy-cm. FINDINGS: CHEST: Lungs: The central airways are patent. Small to moderate bilateral pleural effusions with associated lower lobe atelectasis. Consolidative opacity also noted in the lingula with air bronchograms dependently. No pneumothorax. Mediastinum: The heart is mildly enlarged. Coronary artery calcifications are seen diffusely. Status post CABG. No pericardial effusion. No pathologically enlarged mediastinal lymph nodes. Chest Wall/Axilla: No lymphadenopathy. No chest wall mass. ABDOMEN/PELVIS: Liver, Gallbladder, Biliary Tree: The liver is normal in size, shape, and attenuation. No focal hepatic lesion. Mild biliary ductal dilatation is present. Cholecystectomy. Pancreas: Unremarkable. Spleen: Unremarkable. Adrenal Glands: Unremarkable. Kidneys and Ureters: The kidneys are atrophic. No hydronephrosis. Diffuse vascular calcifications are present. Renal calculi may also be present as seen on prior. Bladder: The bladder is partially distended with circumferential wall thickening. Gastrointestinal Tract: Suture line along the greater curvature of the stomach suggestive of gastric sleeve. The small bowel is normal in caliber without obstruction. Normal appendix. No colonic wall thickening or inflammatory change. Stool distention of the rectum. No free air or free fluid.. Abdominal Wall: There is mesh repair of a ventral abdominal wall hernia superiorly. Diffuse anasarca. Lymphovascular Structures: Lymph nodes: Normal. Vascular: Normal caliber aorta. Mild to moderate atherosclerotic calcifications. Pelvic Viscera: Unremarkable. OSSEOUS STRUCTURES: Somewhat sclerotic appearance of the osseous structures likely associated with renal osteodystrophy. Multilevel degenerative changes throughout the spine. No focal suspicious osseous lesions. IMPRESSION: Small to moderate bilateral pleural effusions. Associated atelectasis. Additional lingular consolidation with air bronchograms which favors atelectasis, although pneumonia not excluded. Atrophic kidneys. Vascular calcifications with possible renal calculi. No hydronephrosis. Renal osteodystrophy.
[2018-01-06 05:47] LABS: ABSOLUTE BASOPHIL COUNT 0 /CUMM (0.0-0.2); ABSOLUTE EOSINOPHIL COUNT 0.2 /CUMM (0.0-0.7); ABSOLUTE GRANULOCYTE CT 4.7 /CUMM (1.4-6.5); ABSOLUTE LYMPH COUNT 1.5 /CUMM (1.2-3.4); ABSOLUTE MONOCYTE COUNT 0.5 /CUMM (0.10-0.60); BASOPHIL % 0.4 % (0.0-2.0); EOSINOPHIL % 2.4 % (0-5); HEMATOCRIT 24.8 % (42-52); MEAN CORPUSCULAR HGB 30.8 PG (27.0-31.0); MEAN CORPUSCULAR HGB CONC 32.9 G/DL (33.0-37.0); MEAN CORPUSCULAR VOLUME 93.7 FL (80.0-94.0); MEAN PLATELET VOLUME 9.6 FL (7.4-10.4); PLATELET COUNT 126 /CUMM (130-400); RBC DISTRIBUTION WIDTH 16.3 % (11.5-14.5); RED BLOOD CELL CT 2.65 /CUMM (4.70-6.10); WHITE BLOOD CELL COUNT 6.9 /CUMM (4.8-10.8)
--- NOTE | 2018-01-06 07:40 | PN- Resident CRCU ---
Cricket MARTINEZ,Cathy 01/06/18 0740: Subjective HPI/CRCU Issues: Patient seen and examined. Having breakfast. No bowel movement yet 24 Hour Events: Afebrile Heart rate ranging in 60s Blood pressure ranging in 90s 100/50s to 70s 94% on room air Levophed 3mcg Objective Vital Signs & I&O Last 8 Hrs of Vitals and I&O: Vital Signs Date Time Temp Pulse Resp B/P B/P Pulse O2 O2 Flow FiO2 Mean Ox Delivery Rate 01/06 1200 94 Room Air Room Air 01/06 0800 94 Room Air Room Air 01/06 0800 97.1 66 16 106/62 98 Room Air Room Air 01/06 0525 66 93 01/06 0400 93 CPAP 01/06 0332 64 96 01/06 0026 68 96 01/06 0000 97 CPAP / 0000 97.8 69 16 110/60 97 CPAP 01/05 2215 82 95 01/05 1717 98.9 70 20 111/59 01/05 1600 99 Nasal 2.0L Cannula 01/05 1600 98.1 76 20 100/50 99 Nasal 2.0L Cannula Intake & Output 01/06 1600 /02 0800 / 0000 Intake Total 189 450.4 Output Total Balance 189 450.4 Intake, IV 89 90.4 Intake, Oral 100 360 Exam General Appearance: well developed/nourished, no apparent distress, alert, awake Head: atraumatic Neck: normal inspection Respiratory: normal breath sounds, chest non-tender, no respiratory distress Cardiovascular: regular rate/rhythm Gastrointestinal: normal bowel sounds, soft, non-tender Extremities: s/p R AKA dressing intact Cranial Nerves: normal hearing, normal speech Current Medications: Current Medications Sig/Bobo Start time Last Medication Dose Route Stop Time Status Admin Albumin Human 12.5 GM .Q30MIN PRN 01/02 1000 AC 01/04 IV 1058 Aspirin Buffered 81 MG DAILY 01/03 1000 AC 01/05 PO 1017 Atorvastatin Calcium 10 MG 01/05 AC 01/05 PO 171 Cefazolin Sodium 2 GM 01/04 1000 AC 01/04 N/A 1 UNIT IV 1421 Cinacalcet 30 MG 01/02 AC 01/05 PO 171 Clopidogrel Bisulfate 75 MG 01/05 AC 01/05 PO 2017 Cyanocobalamin 1,000 MCG DAILY 01/03 1000 AC 01/05 PO 1017 Docusate Sodium 100 MG DAILY 01/03 1000 AC 01/05 PO 1017 Epoetin Jaron 7,000 UNIT 01/06 1000 CAN IV Epoetin Jaron 4,000 UNIT MoWeFr PRN 01/06 1000 AC IV Epoetin Jaron 3,000 UNIT MoWeFr PRN 01/06 1000 AC IV Epoetin Jaron 2,000 UNIT DAILY NEEDED PRN 01/02 1645 DC 01/04 IV 1058 Epoetin Jaron 3,000 UNIT DAILY NEEDED PRN 01/02 1645 DC 01/04 IV 1058 Heparin Sodium 0 .STK-MED ONE 01/05 1338 DC (Porcine) IV Heparin Sodium 0 .STK-MED ONE 01/05 1336 DC (Porcine) IV Lidocaine 0 .STK-MED ONE 01/05 1336 DC .ROUTE Lidocaine/Prilocaine 1 GAVI DAILY PRN 01/02 1645 AC TOP Morphine Sulfate 4 MG .STK-MED ONE 01/06 0005 DC IM 01/06 0006 Morphine Sulfate 2 MG Q4P PRN 01/02 1430 AC 01/06 IV 0917 Multivitamins 1 TAB DAILY 01/03 1000 AC 01/05 PO 1017 Norepinephrine 4 MG Q16H 01/04 1000 AC 01/05 Sodium Chloride 250 ML IV 1717 Polyethylene Glycol 17 GM DAILY 01/05 1349 AC PO Senna 187 MG AT BEDTIME 01/05 2200 AC 01/05 PO 2017 Sevelamer Carbonate 2,400 MG WM 01/02 1700 AC 01/06 PO 0917 Impression/Plan Impression/Problem List Impression: Patient is a 57-year-old male with past medical history significant for peripheral arterial disease status post right [id number] amputation, end- stage renal disease on hemodialysis, coronary artery disease status post PCI and 1 drug-eluting stent in the left main circumflex artery (September 2017) and status post quadruple CABG (2006), diabetes, history of obstructive sleep apnea on CPAP at night, chronic anemia, most recent admission for septic arthritis and staph aureus sepsis, mitral valve endocarditis, osteomyelitis, history of C. difficile presented this admission after he was found to be hypotensive and tachycardic during dialysis with report of recent fatigue and dyspnea. #Respiratory Stable. Pt on RA and satting well. -Continue CPAP at night Infectious #Septic shock secondary to unknown source: Differential includes , osteoporosis/ BKA stump infection, endocarditis, healthcare associated pneumonia given CAT scan findings. He is status post AKA postop day 4 -SAM negative for vegetations -BCX x2 + MSSA; 2 set negative. 3rd set was drawn in setting of fever spike and leukocytosis with left shift negative so far -Aspirate of collection of R. knee so far negative. -Pt underwent pro-line non-tunneled catheter placed on 01/05. Previously R. femoral TLC 12/26 needs to come out given MSSA bacteremia x2, he underwent placement of right IJ 01/04, In context of fever spike and leukocytosis that is a possibility that it is infected. RIJ removed on 01/05 -Patient received vancomycin x1 yesterday 01/04 and Vancomycin trough on 01/06 was 13 -CT of the chest/abd revealing ingular consolidation with air bronchograms which favors atelectasis, although pneumonia not excluded and hernial mesh repair. could be possible source of infection?? -We are going to continue cefazolin 2g daily after dialysis Cardiovascular #Atrial fibrillation: Pt paroxysmal afib and is itnermittently going in and out of a. fib. Pt started on Heparin on 12/28/2017. Likely cause of sepsis versus mitral valve regurgitation -Patient had an episode of atrial fibrillation yesterday which resolved. -Heparin drip will be restarted today as per attending recommendations #Hypotension: Patient had pro-line palced by IR on 01/05. He is currently on 3 mics of levo fed -Attempt to wean him off today. Given that his nml BP is around 90s systolic will titrate his MAP to 60. Levophed as necessary #Type II WI: RESOLVED. Peak troponin .23 on Dec 27, 2017. #CAD s/p stent and CABG : Chronic and stable -Continue Aspirin and Clopidogrel -Continue statin initially held in setting of transaminitis. #Mitral regurgitation and possible perforation on SAM -Possible mitral valve surgery as an outpatient Hemetology #Anemia H/H dropped from 08/04 to 6.06/27 yesterday Hemoglobin 8 to 9 is his baseline. He recieved 1 unit pRBCS postop on 01/03 and 1 units on 01/05. Likely secondary to bleeding from surgical site -Posttransfusion 07/02 remains stable today at 07/01 -CT scan negative for retroperitoneal bleed -Since he is on dual antiplatelet therapy in setting of dropping H&H we will reassess the patient before starting IV heparin cardiology is on board #Leukocytosis resolved Metabolic #Transaminitis Likely secondary to postop. -Continue to monitor LFTs have trended down to normal Alimentary #Dialysis diet #No documentation of bowel movement continue Colace MiraLAX and docusate Nephrology #ESRD: -Dialysis today -Continue Epojen, Sensipar and Sevelamer -Use 12.5 g of 25% IV albumin Q30 PRN for SBP <100 for BP maintaince during dialysis DVT prophylaxis After discussion with Dr. Alvarenga we are going to resume IV heparin drip and monitor patient's CBC every 12 CT scan thoracic spine and lumbar spine with IV contrast was separately ordered, since I did not see the results for them, I called CT scan in the morning around 7:15am I was informed By technical support intern that they did film of thoracic spine with the chest CT and a lumbar spine film with abdominal pelvis CT. Radiologist that read the CT scan did not comment on that so we have gotten in touch with our radiology department and asked for re-read. They will put an addendum on the original report, commenting on thoracic and lumbar spine Problem List: 1. Renal failure Pain Ratin Pain Location: R AKA Tomorrow's Labs & Rationales: cbc icu bundle Plan DVT/Prophylaxis: Saul Toscano MD 01/06/18 1124: Attending MD Review Statement Attending Sign Off Attending Cosign Statement: I have: examined this patient, reviewed avalbl EMR data, personally reviewd images, discussd w/resident/PA/BORDER PATROL OFFICER, discussed mgmt plan w/whit, discussed mgmt plan w/CM, discussed mgmt plan w/pt, agreed w/resident/PA/BORDER PATROL OFFICER, amended to note. Other Findings: ISaul M.D. have examined this patient, reviewed available EMR data, personally reviewed images, discussed with resident/PA/BORDER PATROL OFFICER, discussed management plan with housestaff and nursing staff, discussed managment plan all of healthcare providers, discussed management plan with patient and/or family, agreed with resident/PA/BORDER PATROL OFFICER. The past history and parts of the chart have been autopopulated. Impression 57 year old man * staph aureus sepsis * s/p aka * ESRD on HD * chronic anemia * a.fib on heparin gtt * s/p sam showing ? perforation in posterior leaflet without obvious clinical significance and will require surveillance Plan -s/p proline -f/u nephrology, ID, vascular surgery, cardiology -again febrile, pressors -monitor cbc -HD per renal -map goal 60 DVT prophylaxis at all times TTS 35 min
[2018-01-06 08:00] VITALS: BP 106/62
--- NOTE | 2018-01-06 10:42 | PN- Cardiology ---
Subjective Subjective: The patient is awake, alert The events of the last 24 hours as well as telemetry were reviewed. Review of Systems: The review of systems is negative for chest pains, palpitations nor lightheadedness. The remainder of the 14 point review of systems is noncontributory with the exception of above. Objective Vital Signs and I&Os Vital Signs Date Time Temp Pulse Resp B/P B/P Pulse O2 O2 Flow FiO2 Mean Ox Delivery Rate 01/06 0525 66 93 01/06 0400 93 CPAP 01/06 0332 64 96 01/06 0026 68 96 01/06 0000 97 CPAP 01/06 0000 97.8 69 16 110/60 97 CPAP 01/05 2215 82 95 01/05 1717 98.9 70 20 111/59 01/05 1600 99 Nasal 2.0L Cannula 01/05 1600 98.1 76 20 100/50 99 Nasal 2.0L Cannula 01/05 1200 96 Room Air Intake & Output 01/06 1600 01/06 0800 01/06 0000 01/05 1600 01/05 0800 01/05 0000 Intake Total 189 450.4 490 335 669 Output Total 0 0 0 Balance 189 450.4 490 335 669 Intake, Blood 350 Product Intake, IV 89 90.4 140 335 549 Intake, Oral 100 360 0 120 Number 0 0 Bowel Movements Output, Urine 0 0 0 Physical Exam: General: Nontoxic, no apparent distress. HEENT: Sclera and conjunctiva within normal limits, without xanthelasmas. Neck: Carotids 2+ without bruits. Respiratory: Clear to auscultation, air movement is good, without accessory respiratory muscle use. Heart: Regular rate and rhythm, 2/6 systolic ejection murmur at left sternal border, without JVD. Abdomen: Soft, nontender, no masses, normoactive bowel sounds. Extremities: Without clubbing, cyanosis, without edema. Neuro: Nonfocal exam, strength, 5 out of 5 Skin: Within normal limits without lesions. Psych: Mood and affect: Normal Current Medications: Current Medications Sig/Bobo Start time Last Medication Dose Route Stop Time Status Admin Albumin Human 12.5 GM .Q30MIN PRN 01/02 1000 AC 01/04 IV 1058 Aspirin Buffered 81 MG DAILY 01/03 1000 AC 01/05 PO 1017 Atorvastatin Calcium 10 MG 1700 01/05 1700 AC 01/05 PO 1717 Cefazolin Sodium 2 GM 01/04 1000 AC 01/04 N/A 1 UNIT IV 1421 Cinacalcet 30 MG 1700 01/02 1700 AC 01/05 PO 171 Clopidogrel Bisulfate 75 MG 01/05 AC 01/05 PO 2017 Cyanocobalamin 1,000 MCG DAILY 01/03 1000 AC 01/05 PO 1017 Docusate Sodium 100 MG DAILY 01/03 1000 AC 01/05 PO 1017 Epoetin Jaron 7,000 UNIT 01/06 1000 CAN IV Epoetin Jaron 4,000 UNIT MoWeFr PRN 01/06 1000 AC IV Epoetin Jaron 3,000 UNIT MoWeFr PRN 01/06 1000 AC IV Epoetin Jaron 2,000 UNIT DAILY NEEDED PRN 01/02 1645 DC 01/04 IV 1058 Epoetin Jaron 3,000 UNIT DAILY NEEDED PRN 01/02 1645 DC 01/04 IV 1058 Heparin Sodium 0 .STK-MED ONE 01/05 1338 DC (Porcine) IV Heparin Sodium 0 .STK-MED ONE 01/05 1336 DC (Porcine) IV Lidocaine 0 .STK-MED ONE 01/05 1336 DC .ROUTE Lidocaine/Prilocaine 1 GAVI DAILY PRN 01/02 1645 AC TOP Morphine Sulfate 4 MG .STK-MED ONE 01/06 0005 DC IM 01/06 0006 Morphine Sulfate 2 MG Q4P PRN 01/02 1430 AC 01/06 IV 0917 Multivitamins 1 TAB DAILY 01/03 1000 AC 01/05 PO 1017 Norepinephrine 4 MG Q16H 01/04 1000 AC 01/05 Sodium Chloride 250 ML IV 1717 Polyethylene Glycol 17 GM DAILY 01/05 1349 AC PO Senna 187 MG AT BEDTIME 01/05 2200 AC 01/05 PO 2017 Sevelamer Carbonate 2,400 MG WM 01/02 1700 AC 01/06 PO 0917 Results Last 48 Hrs of Labs/Mics: Laboratory Tests 01/06/18 0400: Anion Gap 14, Estimated GFR 11 L, Glucose 105 H, Calcium 8.1 L, Phosphorus 4.6 H, Magnesium 2.0, Total Bilirubin 0.5, AST 26, ALT 32, Albumin 2.9 L, CBC w Diff NO MAN DIFF REQ, RBC 2.65 L, MCV 93.7, MCH 30.8, MCHC 32.9 L, RDW 16.3 H, MPV 9.6, Gran % 68.0, Lymphocytes % 22.2, Monocytes % 7.0, Eosinophils % 2.4, Basophils % 0.4, Absolute Granulocytes 4.7, Absolute Lymphocytes 1.5, Absolute Monocytes 0.5, Absolute Eosinophils 0.2, Absolute Basophils 0, Random Vancomycin 13.8 01/05/18 2115: CBC w Diff NO MAN DIFF REQ, RBC 2.64 L, MCV 93.1, MCH 30.5, MCHC 32.7 L, RDW 16.1 H, MPV 9.1, Gran % 69.5, Lymphocytes % 19.5 L, Monocytes % 8.6, Eosinophils % 2.0, Basophils % 0.4, Absolute Granulocytes 4.5, Absolute Lymphocytes 1.3, Absolute Monocytes 0.6, Absolute Eosinophils 0.1, Absolute Basophils 0 01/05/18 1320: CBC w Diff NO MAN DIFF REQ, RBC 2.80 L, MCV 93.3, MCH 29.6, MCHC 31.7 L, RDW 16.6 H, MPV 9.5, Gran % 70.0, Lymphocytes % 18.7 L, Monocytes % 8.5, Eosinophils % 2.5, Basophils % 0.3, Absolute Granulocytes 5.0, Absolute Lymphocytes 1.3, Absolute Monocytes 0.6, Absolute Eosinophils 0.2, Absolute Basophils 0 01/05/18 0450: Anion Gap 9, Estimated GFR 16 L, Glucose 126 H, Calcium 8.4, Phosphorus 3.4, Magnesium 2.0, Total Bilirubin 0.2, AST 50, ALT 42, Albumin 2.7 L, PT 13.0 H, INR 1.24 H, APTT 52 H, CBC w Diff NO MAN DIFF REQ, RBC 2.23 L, MCV 94.0, MCH 30.4, MCHC 32.3 L, RDW 15.6 H, MPV 9.6, Gran % 73.0, Lymphocytes % 17.0 L, Monocytes % 7.5, Eosinophils % 2.2, Basophils % 0.3, Absolute Granulocytes 5.3, Absolute Lymphocytes 1.2, Absolute Monocytes 0.5, Absolute Eosinophils 0.2, Absolute Basophils 0 01/04/18 1700: APTT 66 H Assessment/Plan Assessment/Plan 1. Coronary disease by history status post coronary bypass surgery 2006 with complex PCI to the left main into the circumflex September 2017 with normal LV function 2. Hx of Hypertension 3. Peripheral arterial disease status post prior amputation now S/P right AKA 4. End-stage renal disease on dialysis 5. 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 Repeat YULIA to 01/02/18 was negative for vegetations; however, with severe mitral regurgitation and possible perforation 6. Diabetes 7. Fever and chills with hypotension most likely secondary to sepsis. 8. Elevated troponins, minimal, not due to ACS 9. Intermittent atrial fibrillation possibly due to sepsis Coronary artery disease: The patient has known coronary artery disease, and a stable in regards to the same. He will continue his current medication regimen. A beta debbi will be initiated if able to tolerate from a blood pressure standpoint, once pressors are discontinued. Bacteremia: A YULIA demonstrated no vegetations; however, likely valvular perforation of the posterior mitral valve leaflet and moderate to severe regurgitation. He will likely require surgical intervention of his mitral valve Atrial fibrillation: The patient has atrial fibrillation. Given the results of the YULIA demonstrating moderate to severe regurgitation, this is a likely etiology. Will require anticoagulation post surgery and further consideration for valvular repair. Currently he is not anticoagulated secondary to anemia as well as use of dual antiplatelet therapy Continue telemetry? Yes
--- NOTE | 2018-01-06 12:28 | PN- Infect Dx ---
Subjective Subjective: No fever; decreased discomfort R LE. Review of Systems Comments: 12 points reviewed a noted, otherwise negative. Objective Last 24 Hrs of Vital Signs/I&O Vital Signs Date Time Temp Pulse Resp B/P B/P Pulse O2 O2 Flow FiO2 Mean Ox Delivery Rate 01/06 08 94 Room Air Room Air 01/06 08 97.1 66 16 106/62 98 Room Air Room Air 01/06 0525 66 93 01/06 0400 93 CPAP 01/06 0332 64 96 01/06 0026 68 96 01/06 0000 97 CPAP 01/06 0000 97.8 69 16 110/60 97 CPAP 01/05 2215 82 95 01/05 1717 98.9 70 20 111/59 01/05 1600 99 Nasal 2.0L Cannula 01/05 1600 98.1 76 20 100/50 99 Nasal 2.0L Cannula Intake & Output 01/06 1600 01/06 0801/06 0000 Intake Total 189 450.4 Output Total Balance 189 450.4 Intake, IV 89 90.4 Intake, Oral 100 360 Physical Exam Other Physical Findings: General Appearance: well nourished, no apparent distress, alert, awake HEENT: NC/AT, anicteric sclera, MMM NECK: Supple, no JVD, trachea midline, RIJ TLC CARD: Normal S1/S2 w/o m/g/r; RRR PULM: CTA bilaterally ABD: Soft, NT, ND, BS+ NEURO: Awake and alert, CN II-XII grossly intact EXT: right AKA, normal pulses, no edema SKIN: pale Results Last 24 Hours of Lab Results: Laboratory Tests 01/060 5 Chemistry Sodium (137 - 145 mmol/L) 138 Potassium (3.5 - 5.1 mmol/L) 4.3 Chloride (98 - 107 mmol/L) 98 Carbon Dioxide (22 - 30 mmol/L) 25 Anion Gap (5 - 16) 14 BUN (9 - 20 mg/dL) 40 H Creatinine (0.7 - 1.2 mg/dL) 5.5 *H Estimated GFR (>60 ml/min) 11 L Glucose (65 - 99 mg/dL) 105 H Calcium (8.4 - 10.2 mg/dL) 8.1 L Phosphorus (2.5 - 4.5 mg/dL) 4.6 H Magnesium (1.6 - 2.3 mg/dL) 2.0 Total Bilirubin (0.2 - 1.3 mg/dL) 0.5 AST (17 - 59 U/L) 26 ALT (21 - 72 U/L) 32 Albumin (3.5 - 5.0 g/dL) 2.9 L Hematology CBC w Diff NO MAN DIFF REQ NO MAN DIFF REQ WBC (4.8 - 10.8 /CUMM) 6.9 6.5 RBC (4.70 - 6.10 /CUMM) 2.65 L 2.64 L Hgb (14.0 - 18.0 G/DL) 8.2 L 8.1 L Hct (42 - 52 %) 24.8 L 24.6 L MCV (80.0 - 94.0 FL) 93.7 93.1 MCH (27.0 - 31.0 PG) 30.8 30.5 MCHC (33.0 - 37.0 G/DL) 32.9 L 32.7 L RDW (11.5 - 14.5 %) 16.3 H 16.1 H Plt Count (130 - 400 /CUMM) 126 L 142 MPV (7.4 - 10.4 FL) 9.6 9.1 Gran % (42.2 - 75.2 %) 68.0 69.5 Lymphocytes % (20.5 - 51.1 %) 22.2 19.5 L Monocytes % (1.7 - 9.3 %) 7.0 8.6 Eosinophils % (0 - 5 %) 2.4 2.0 Basophils % (0.0 - 2.0 %) 0.4 0.4 Absolute Granulocytes (1.4 - 6.5 /CUMM) 4.7 4.5 Absolute Lymphocytes (1.2 - 3.4 /CUMM) 1.5 1.3 Absolute Monocytes (0.10 - 0.60 /CUMM) 0.5 0.6 Absolute Eosinophils (0.0 - 0.7 /CUMM) 0.2 0.1 Absolute Basophils (0.0 - 0.2 /CUMM) 0 0 Toxicology Random Vancomycin (ug/ml) 13.8 03/01 1320 Hematology CBC w Diff NO MAN DIFF REQ WBC (4.8 - 10.8 /CUMM) 7.2 RBC (4.70 - 6.10 /CUMM) 2.80 L Hgb (14.0 - 18.0 G/DL) 8.3 L Hct (42 - 52 %) 26.1 L MCV (80.0 - 94.0 FL) 93.3 MCH (27.0 - 31.0 PG) 29.6 MCHC (33.0 - 37.0 G/DL) 31.7 L RDW (11.5 - 14.5 %) 16.6 H Plt Count (130 - 400 /CUMM) 127 L MPV (7.4 - 10.4 FL) 9.5 Gran % (42.2 - 75.2 %) 70.0 Lymphocytes % (20.5 - 51.1 %) 18.7 L Monocytes % (1.7 - 9.3 %) 8.5 Eosinophils % (0 - 5 %) 2.5 Basophils % (0.0 - 2.0 %) 0.3 Absolute Granulocytes (1.4 - 6.5 /CUMM) 5.0 Absolute Lymphocytes (1.2 - 3.4 /CUMM) 1.3 Absolute Monocytes (0.10 - 0.60 /CUMM) 0.6 Absolute Eosinophils (0.0 - 0.7 /CUMM) 0.2 Absolute Basophils (0.0 - 0.2 /CUMM) 0 Last 24 Hours of Brendan Results: SPEC #: [id number] BRIAN: 01/03/18 STATUS: RES RECD: 01/03/[address] [facility] [address]: Laron MARTINEZ, Kimmy SOURCE: BLOOD ENTR: 01/03/[address] [facility] [address]: Karen MARTINEZ, Enma Merino SPDESC: 2ND/VENOUS Michelle MARTINEZ,Clinton Alvarenga MD,Saul ORDERED: BLOOD CULTURE Procedure Result > BLOOD CULTURE REPORT Preliminary 01/04/18-1220 No growth after 1 day incubation. Specimen is examined continuously for 5 days before final report unless culture becomes positive. Recent Imaging Studies: EXAMINATION: CT CHEST WITH CONTRAST CT ABDOMEN AND PELVIS WITH CONTRAST CLINICAL INFORMATION: Fever with elevated white blood cell count. COMPARISON: 10/25/2017 TECHNIQUE: Multidetector volumetric imaging was performed through the chest, abdomen and pelvis following the administration of 121 mL of Optiray 320 intravenous contrast. Sagittal and coronal reformatted images were obtained on the technologist's workstation. Axial MIP volume rendering provided. DLP: 996 mGy-cm. FINDINGS: CHEST: Lungs: The central airways are patent. Small to moderate bilateral pleural effusions with associated lower lobe atelectasis. Consolidative opacity also noted in the lingula with air bronchograms dependently. No pneumothorax. Mediastinum: The heart is mildly enlarged. Coronary artery calcifications are seen diffusely. Status post CABG. No pericardial effusion. No pathologically enlarged mediastinal lymph nodes. Chest Wall/Axilla: No lymphadenopathy. No chest wall mass. ABDOMEN/PELVIS: Liver, Gallbladder, Biliary Tree: The liver is normal in size, shape, and attenuation. No focal hepatic lesion. Mild biliary ductal dilatation is present. Cholecystectomy. Pancreas: Unremarkable. Spleen: Unremarkable. Adrenal Glands: Unremarkable. Kidneys and Ureters: The kidneys are atrophic. No hydronephrosis. Diffuse vascular calcifications are present. Renal calculi may also be present as seen on prior. Bladder: The bladder is partially distended with circumferential wall thickening. Gastrointestinal Tract: Suture line along the greater curvature of the stomach suggestive of gastric sleeve. The small bowel is normal in caliber without obstruction. Normal appendix. No colonic wall thickening or inflammatory change. Stool distention of the rectum. No free air or free fluid.. Abdominal Wall: There is mesh repair of a ventral abdominal wall hernia superiorly. Diffuse anasarca. Lymphovascular Structures: Lymph nodes: Normal. Vascular: Normal caliber aorta. Mild to moderate atherosclerotic calcifications. Pelvic Viscera: Unremarkable. OSSEOUS STRUCTURES: Somewhat sclerotic appearance of the osseous structures likely associated with renal osteodystrophy. Multilevel degenerative changes throughout the spine. No focal suspicious osseous lesions. IMPRESSION: Small to moderate bilateral pleural effusions. Associated atelectasis. Additional lingular consolidation with air bronchograms which favors atelectasis, although pneumonia not excluded. Atrophic kidneys. Vascular calcifications with possible renal calculi. No hydronephrosis. Renal osteodystrophy. DICTATED BY: Pete Santos MD DATE/TIME DICTATED:01/06/[address] STRE[address]CAR REPAIRER HELPER:SANDEEP DATE/TIME TRANSCRIBED:01/06/18519 CONFIDENTIAL, DO NOT COPY WITHOUT APPROPRIATE AUTHORIZATION. <Electronically signed in Other Vendor System> SIGNED BY: Pete Santos MD 01/[address] spine IMPRESSION: Degenerative changes at the C4-C5 level with disc space narrowing and endplate irregularity. The appearance is not destructive to the point of discitis/osteomyelitis. No suspicious infectious findings. DICTATED BY: Tom MARTINEZ,Pete DATE/TIME DICTATED:01/06/[address] ST[address] REPAIRER HELPER:SANDEEP DATE/TIME TRANSCRIBED:01/06/18513 CONFIDENTIAL, DO NOT COPY WITHOUT APPROPRIATE AUTHORIZATION. Assessment/Plan ID Impression: 57-year-old man with a history of diabetes, coronary artery disease, status post angioplasty and stent over 3 months prior to admission, end-stage renal disease, maintained on hemodialysis Mondays, Wednesdays and Fridays via a left forearm fistula, status post a right BKA 8 years prior to admission, complicated by several infections of the stump secondary to MSSA, most recently 2-1/2 months prior to admission, with evidence of osteomyelitis at that time, and with a transthoracic echo revealing a possible mitral valve vegetation, treated with a 6 week course of Cefazolin, admitted on December 26 with lethargy and chills, found to be febrile with a normal white blood cell count and with blood cultures sepsis. Source of bacteremia still unclear; YULIA negative vegetations; now status post R AKA; evaluated for possible residual infection related to the right BKA stump ( OR culture from 01/02 no growth to date). Another focus that may have been seeded from the recent bacteremia (10% patient w/ IE can develop diskitis). Underwent CT spine (results as noted; no OM) and CT of the chest/abd revealing possible LLL pneumonia vs atelectasis and a ventral hernia mesh repair (? possible source of infection). Question LLL infiltrate (CXR 12/30); repeat CXR on 01/03 after spiking fever revealing b/l pleural effusions; if persistent fever/hypotension CT abd/pelvis eval occult abscess; also MRI spine to be considered. Leukocytosis/resolved Suggestion: 1. Observe patient on current abx regimen Cefazolin 2 gm after HD for total 4-6 weeks. 2. Trend CBC. 3. Call if spiking fever again.
--- NOTE | 2018-01-06 13:17 | PN- Nephrology ---
Assessment/Plan Nephrology Assessment: ESRD - Routine HD today. Total body volume expanded with severe MR demonstrated on YULIA - fluid removal today as tolerated. Anemia - Epogen increased from 5000U TIW (outpatient dose) to 7000U TIW. MSSA bacteremia - Cultures neg. CT C/A/P unrevealing of source. ID following - remains on abx - likely to just complete 4-6 week course. Suggestion: -HD today - 2-3L UF as tolerated -Epogen 7000U TIW Please call [phone] with ?'s Subjective Subjective: Pt seen and examined on dialysis No specific complaints Afebrile with stable WBC and no new micro Objective Vital Signs and I&Os Vital Signs Date Time Temp Pulse Resp B/P B/P Pulse O2 O2 Flow FiO2 Mean Ox Delivery Rate 01/06 1200 94 Room Air Room Air 01/06 0800 94 Room Air Room Air 01/06 0800 97.1 66 16 106/62 98 Room Air Room Air 01/06 0525 66 93 01/06 0400 93 CPAP 01/06 0332 64 96 / 0026 68 96 03/ 0000 97 CPAP 03/ 0000 97.8 69 16 110/60 97 CPAP / 2215 82 95 03/ 1717 98.9 70 20 111/59 03/ 1600 99 Nasal 2.0L Cannula 01/05 1600 98.1 76 20 100/50 99 Nasal 2.0L Cannula Intake & Output / 1600 /02 0400 / 1600 / 0400 01/04 1600 01/04 0400 Intake Total 189 450.4 784 568 8925 438 Output Total 0 0 1999 Balance 189 450.4 825 669 -[phone] Intake, Blood 350 Product Intake, IV 89 90.4 475 549 867 238 Intake, Oral 100 360 0 120 490 200 Number 0 0 Bowel Movements Output, 2000 Dialysate Output, Urine 0 0 0 Physical Exam: Gen - OK appearing HEENT - supple CV - RRR, no m/r/g Chest - clear anteriorly Abd - soft, NTND Ext - +edema, s/p RLE amputation; LLA AVF +thrill/+bruit Neuro - AOX3, grossly nonfocal Current Medications: Current Medications Sig/Bobo Start time Last Medication Dose Route Stop Time Status Admin Albumin Human 12.5 GM .Q30MIN PRN 01/02 1000 AC 01/04 IV 1058 Aspirin Buffered 81 MG DAILY 01/03 1000 AC 01/05 PO 1017 Atorvastatin Calcium 10 MG 01/05 1700 AC 01/05 PO 1717 Cefazolin Sodium 2 GM 01/04 1000 AC 01/04 N/A 1 UNIT IV 1421 Cinacalcet 30 MG 01/02 1700 AC 01/05 PO 1717 Clopidogrel Bisulfate 75 MG 01/05 AC 01/05 PO 2017 Cyanocobalamin 1,000 MCG DAILY 01/03 1000 AC 01/05 PO 1017 Docusate Sodium 100 MG DAILY 01/03 1000 AC 01/05 PO 1017 Epoetin Jaron 7,000 UNIT 01/06 1000 CAN IV Epoetin Jaron 4,000 UNIT MoWeFr PRN 01/06 1000 AC IV Epoetin Jaron 3,000 UNIT MoWeFr PRN 01/06 1000 AC IV Heparin Sodium 0 .STK-MED ONE 01/05 1338 DC (Porcine) IV Heparin Sodium 0 .STK-MED ONE 01/05 1336 DC (Porcine) IV Lidocaine 0 .STK-MED ONE 01/05 1336 DC .ROUTE Lidocaine/Prilocaine 1 GAVI DAILY PRN 01/02 1645 AC TOP Morphine Sulfate 4 MG .STK-MED ONE 01/06 0005 DC IM 01/06 0006 Morphine Sulfate 2 MG Q4P PRN 01/02 1430 AC 01/06 IV 0917 Multivitamins 1 TAB DAILY 01/03 1000 AC 01/05 PO 1017 Norepinephrine 4 MG Q16H 01/04 1000 AC 01/05 Sodium Chloride 250 ML IV 1717 Polyethylene Glycol 17 GM DAILY 01/05 1349 AC PO Senna 187 MG AT BEDTIME 01/05 2200 AC 01/05 PO 2017 Sevelamer Carbonate 2,400 MG WM 01/02 1700 AC 01/06 PO 0917 Results Pertinent Lab Results: Laboratory Tests 01/06 01/05 0400 2115 Chemistry Sodium (137 - 145 mmol/L) 138 Potassium (3.5 - 5.1 mmol/L) 4.3 Chloride (98 - 107 mmol/L) 98 Carbon Dioxide (22 - 30 mmol/L) 25 Anion Gap (5 - 16) 14 BUN (9 - 20 mg/dL) 40 H Creatinine (0.7 - 1.2 mg/dL) 5.5 *H Estimated GFR (>60 ml/min) 11 L Glucose (65 - 99 mg/dL) 105 H Calcium (8.4 - 10.2 mg/dL) 8.1 L Phosphorus (2.5 - 4.5 mg/dL) 4.6 H Magnesium (1.6 - 2.3 mg/dL) 2.0 Total Bilirubin (0.2 - 1.3 mg/dL) 0.5 AST (17 - 59 U/L) 26 ALT (21 - 72 U/L) 32 Albumin (3.5 - 5.0 g/dL) 2.9 L Hematology CBC w Diff NO MAN DIFF REQ NO MAN DIFF REQ WBC (4.8 - 10.8 /CUMM) 6.9 6.5 RBC (4.70 - 6.10 /CUMM) 2.65 L 2.64 L Hgb (14.0 - 18.0 G/DL) 8.2 L 8.1 L Hct (42 - 52 %) 24.8 L 24.6 L MCV (80.0 - 94.0 FL) 93.7 93.1 MCH (27.0 - 31.0 PG) 30.8 30.5 MCHC (33.0 - 37.0 G/DL) 32.9 L 32.7 L RDW (11.5 - 14.5 %) 16.3 H 16.1 H Plt Count (130 - 400 /CUMM) 126 L 142 MPV (7.4 - 10.4 FL) 9.6 9.1 Gran % (42.2 - 75.2 %) 68.0 69.5 Lymphocytes % (20.5 - 51.1 %) 22.2 19.5 L Monocytes % (1.7 - 9.3 %) 7.0 8.6 Eosinophils % (0 - 5 %) 2.4 2.0 Basophils % (0.0 - 2.0 %) 0.4 0.4 Absolute Granulocytes (1.4 - 6.5 /CUMM) 4.7 4.5 Absolute Lymphocytes (1.2 - 3.4 /CUMM) 1.5 1.3 Absolute Monocytes (0.10 - 0.60 /CUMM) 0.5 0.6 Absolute Eosinophils (0.0 - 0.7 /CUMM) 0.2 0.1 Absolute Basophils (0.0 - 0.2 /CUMM) 0 0 Toxicology Random Vancomycin (ug/ml) 13.8 03 03 1320 0450 Chemistry Sodium (137 - 145 mmol/L) 137 Potassium (3.5 - 5.1 mmol/L) 3.8 Chloride (98 - 107 mmol/L) 100 Carbon Dioxide (22 - 30 mmol/L) 28 Anion Gap (5 - 16) 9 BUN (9 - 20 mg/dL) 25 H Creatinine (0.7 - 1.2 mg/dL) 4.0 H Estimated GFR (>60 ml/min) 16 L Glucose (65 - 99 mg/dL) 126 H Calcium (8.4 - 10.2 mg/dL) 8.4 Phosphorus (2.5 - 4.5 mg/dL) 3.4 Magnesium (1.6 - 2.3 mg/dL) 2.0 Total Bilirubin (0.2 - 1.3 mg/dL) 0.2 AST (17 - 59 U/L) 50 ALT (21 - 72 U/L) 42 Albumin (3.5 - 5.0 g/dL) 2.7 L Coagulation PT (9.4 - 12.5 SEC) 13.0 H INR (0.90 - 1.17) 1.24 H APTT (25 - 37 SEC) 52 H Hematology CBC w Diff NO MAN DIFF REQ NO MAN DIFF REQ WBC (4.8 - 10.8 /CUMM) 7.2 7.3 RBC (4.70 - 6.10 /CUMM) 2.80 L 2.23 L Hgb (14.0 - 18.0 G/DL) 8.3 L 6.8 *L Hct (42 - 52 %) 26.1 L 20.9 L MCV (80.0 - 94.0 FL) 93.3 94.0 MCH (27.0 - 31.0 PG) 29.6 30.4 MCHC (33.0 - 37.0 G/DL) 31.7 L 32.3 L RDW (11.5 - 14.5 %) 16.6 H 15.6 H Plt Count (130 - 400 /CUMM) 127 L 115 L MPV (7.4 - 10.4 FL) 9.5 9.6 Gran % (42.2 - 75.2 %) 70.0 73.0 Lymphocytes % (20.5 - 51.1 %) 18.7 L 17.0 L Monocytes % (1.7 - 9.3 %) 8.5 7.5 Eosinophils % (0 - 5 %) 2.5 2.2 Basophils % (0.0 - 2.0 %) 0.3 0.3 Absolute Granulocytes (1.4 - 6.5 /CUMM) 5.0 5.3 Absolute Lymphocytes (1.2 - 3.4 /CUMM) 1.3 1.2 Absolute Monocytes (0.10 - 0.60 /CUMM) 0.6 0.5 Absolute Eosinophils (0.0 - 0.7 /CUMM) 0.2 0.2 Absolute Basophils (0.0 - 0.2 /CUMM) 0 0 01/04 01/04 01/03 01/03 1700 0345 2200 1610 Chemistry Sodium (137 - 145 mmol/L) 139 Potassium (3.5 - 5.1 mmol/L) 4.0 Chloride (98 - 107 mmol/L) 100 Carbon Dioxide (22 - 30 mmol/L) 24 Anion Gap (5 - 16) 15 BUN (9 - 20 mg/dL) 33 H Creatinine (0.7 - 1.2 mg/dL) 5.6 *H Estimated GFR (>60 ml/min) 11 L Glucose (65 - 99 mg/dL) 148 H Calcium (8.4 - 10.2 mg/dL) 8.5 Phosphorus (2.5 - 4.5 mg/dL) 4.1 Magnesium (1.6 - 2.3 mg/dL) 1.9 Total Bilirubin (0.2 - 1.3 mg/dL) 0.5 AST (17 - 59 U/L) 106 H ALT (21 - 72 U/L) 69 Albumin (3.5 - 5.0 g/dL) 3.2 L Coagulation APTT (25 - 37 SEC) 66 H 78 H 52 H 50 H Hematology CBC w Diff MAN DIFF ORDERED WBC (4.8 - 10.8 /CUMM) 12.1 H RBC (4.70 - 6.10 /CUMM) 2.94 L Hgb (14.0 - 18.0 G/DL) 9.1 L Hct (42 - 52 %) 27.7 L MCV (80.0 - 94.0 FL) 94.1 H MCH (27.0 - 31.0 PG) 30.8 MCHC (33.0 - 37.0 G/DL) 32.7 L RDW (11.5 - 14.5 %) 15.6 H Plt Count (130 - 400 /CUMM) 156 MPV (7.4 - 10.4 FL) 9.7 Gran % (42.2 - 75.2 %) 93.4 H Lymphocytes % (20.5 - 51.1 %) 3.2 L Monocytes % (1.7 - 9.3 %) 2.8 Eosinophils % (0 - 5 %) 0.6 Basophils % (0.0 - 2.0 %) 0 Absolute Granulocytes (1.4 - 6.5 /CUMM) 11.3 H Segmented Neutrophils (42.2 - 75.2 %) 95 H Band Neutrophils (0.0 - 5.0 %) 1 Absolute Lymphocytes (1.2 - 3.4 /CUMM) 0.4 L Lymphocytes (20.5 - 51.1 %) 1 L Monocytes (1.7 - 9.3 %) 2 Absolute Monocytes (0.10 - 0.60 /CUMM) 0.3 Eosinophils (0 - 5.0 %) 1 Absolute Eosinophils (0.0 - 0.7 /CUMM) 0.1 Absolute Basophils (0.0 - 0.2 /CUMM) 0 Platelet Estimate (ADEQUATE) ADEQUATE Hypochromic-Microcytic 1+ Poikilocytosis 1+ Ovalocytes 1+ Other Body Source Fld Total RBCs Counted (%) 100 Imaging/Other Studies: CT IMPRESSION: Small to moderate bilateral pleural effusions. Associated atelectasis. Additional lingular consolidation with air bronchograms which favors atelectasis, although pneumonia not excluded. Atrophic kidneys. Vascular calcifications with possible renal calculi. No hydronephrosis. Renal osteodystrophy. YULIA CONCLUSIONS Normal LV chamber size, wall thickness and systolic function. The estimated LVEF is 55%. There are no focal wall motion of modalities. The mitral valve is thickened and has poor coaptation. There is moderate mitral annular calcification. There is a possible perforation seen within the posterior leaflet. There is severe mitral regurgitation. No vegetations are seen. No cardiac vegetations are seen.
[2018-01-06 16:00] VITALS: BP 122/62
[2018-01-06 22:46] LABS: ABSOLUTE BASOPHIL COUNT 0 /CUMM (0.0-0.2); ABSOLUTE EOSINOPHIL COUNT 0.1 /CUMM (0.0-0.7); ABSOLUTE GRANULOCYTE CT 5.5 /CUMM (1.4-6.5); ABSOLUTE LYMPH COUNT 0.8 /CUMM (1.2-3.4); ABSOLUTE MONOCYTE COUNT 0.3 /CUMM (0.10-0.60); BASOPHIL % 0.1 % (0.0-2.0); EOSINOPHIL % 1.5 % (0-5); GRANULOCYTE % 82.8 % (42.2-75.2); HEMATOCRIT 24.4 % (42-52); MEAN CORPUSCULAR HGB 30.7 PG (27.0-31.0); MEAN CORPUSCULAR HGB CONC 32.8 G/DL (33.0-37.0); MEAN CORPUSCULAR VOLUME 93.5 FL (80.0-94.0); MEAN PLATELET VOLUME 9.4 FL (7.4-10.4); PLATELET COUNT 122 /CUMM (130-400); RBC DISTRIBUTION WIDTH 16.3 % (11.5-14.5); RED BLOOD CELL CT 2.61 /CUMM (4.70-6.10); WHITE BLOOD CELL COUNT 6.6 /CUMM (4.8-10.8)
[2018-01-06 23:44] LABS: PTT 40 SEC (25-37)
[2018-01-07] VITALS: BP 82/40
[2018-01-07 05:21] LABS: ABSOLUTE BASOPHIL COUNT 0 /CUMM (0.0-0.2); ABSOLUTE EOSINOPHIL COUNT 0.1 /CUMM (0.0-0.7); ABSOLUTE GRANULOCYTE CT 5.8 /CUMM (1.4-6.5); ABSOLUTE LYMPH COUNT 1.3 /CUMM (1.2-3.4); ABSOLUTE MONOCYTE COUNT 0.4 /CUMM (0.10-0.60); BASOPHIL % 0.1 % (0.0-2.0); EOSINOPHIL % 1.9 % (0-5); GRANULOCYTE % 76.4 % (42.2-75.2); MEAN CORPUSCULAR HGB 30.7 PG (27.0-31.0); MEAN CORPUSCULAR HGB CONC 32.8 G/DL (33.0-37.0); MEAN CORPUSCULAR VOLUME 93.8 FL (80.0-94.0); MEAN PLATELET VOLUME 9.1 FL (7.4-10.4); PLATELET COUNT 150 /CUMM (130-400); RBC DISTRIBUTION WIDTH 16.5 % (11.5-14.5); RED BLOOD CELL CT 2.67 /CUMM (4.70-6.10); WHITE BLOOD CELL COUNT 7.5 /CUMM (4.8-10.8)
[2018-01-07 08:00] VITALS: BP 102/52
--- NOTE | 2018-01-07 08:13 | PN- Resident CRCU ---
See Addendum Cricket MARTINEZ,Cathy 01/07/18 0812: Subjective HPI/CRCU Issues: Hypotension ESRD Known history of MSSA mitral valve endocarditis status post antibiotic treatment. 24 Hour Events: Patient seen and examined. Sitting comfortably in the bed. Overall improvement in mood. Offers no complaints. had a BM yesterday Tmax 98 HR 60s to 80s Normal sinus rhythm with first-degree AV block on telemetry step manual blood pressure reading ranging from 80s to 100/40's to 60s 98% on room air overnight on CPAP Heparin drip running Levophed @2mcg Goal MAP 60 Patient came off pressors around 9 PM yesterday blood pressure dropped to 80/40. Levophed restarted around midnight pro-line non-tunneled catheter placed on 01/05 in [facility] H&H remained stable WBC count within normal limits Objective Vital Signs & I&O Last 8 Hrs of Vitals and I&O: Vital Signs Date Time Temp Pulse Resp B/P B/P Pulse O2 O2 Flow FiO2 Mean Ox Delivery Rate 01/07 0800 97 Room Air 01/07 0800 97.8 74 18 102/52 97 Room Air 01/07 0544 72 96 01/07 0400 98 Room Air 01/07 0244 69 99 01/07 0021 71 97 03 0000 94 Room Air 01/07 0000 97.4 70 20 82/40 94 CPAP 01/06 2230 77 97 / 2000 93 Room Air 01/06 1600 94 Room Air Room Air 01/06 1600 97.2 76 17 122/62 98 Room Air Room Air 01/06 1439 70 107/63 / 1200 94 Room Air Room Air Intake & Output 01/07 1600 01/07 0800 0303 0000 Intake Total 258 543 Output Total Balance 258 543 Intake, IV 258 193 Intake, Oral 350 Number 1 Bowel Movements Patient 206 lb Weight Weight Bed scale Measurement Method Intake & Output 01/07 1600 Intake Total Output Total Balance Patient 206 lb Weight Weight Bed scale Measurement Method Exam General Appearance: well developed/nourished, no apparent distress, alert, sedated Head: atraumatic Ears, Nose, Throat: normal ENT inspection Neck: normal inspection, supple Respiratory: normal breath sounds, chest non-tender, no respiratory distress, L- IJ Cardiovascular: irregularly irregular Gastrointestinal: normal bowel sounds, soft, non-tender Extremities: normal inspection, normal capillary refill, no edema Cranial Nerves: normal hearing, normal speech Skin: intact Other Physical Findings: S/p R AKA dressing intact and clear Current Medications: Current Medications Sig/Bobo Start time Last Medication Dose Route Stop Time Status Admin Albumin Human 12.5 GM .Q30MIN PRN 01/02 1000 AC 01/04 IV 1058 Aspirin Buffered 81 MG DAILY 01/03 1000 AC 01/06 PO 1722 Atorvastatin Calcium 10 MG 01/05 1700 AC 01/06 PO 1721 Bisacodyl 5 MG DAILY 01/06 1345 AC 01/06 PO 1723 Cefazolin Sodium 2 GM 01/04 1000 AC 01/06 N/A 1 UNIT IV 1819 Cinacalcet 30 MG 01/02 1700 AC 01/06 PO 1721 Clopidogrel Bisulfate 75 MG 01/05 2000 AC 01/06 PO 2104 Cyanocobalamin 1,000 MCG DAILY 01/03 1000 AC 01/06 PO 1722 Docusate Sodium 100 MG DAILY 01/03 1000 AC 01/06 PO 1723 Epoetin Jaron 4,000 UNIT MoWeFr PRN 01/06 1000 AC IV Epoetin Jaron 3,000 UNIT MoWeFr PRN 01/06 1000 AC IV Heparin Sodium 3,648 UNIT ONCE ONE 01/07 0900 DC (Porcine) IV 01/07 0901 Heparin Sodium 25,000 UNIT Q24H 01/06 1515 AC 01/06 (Porcine) IV 1731 Sodium Chloride 500 ML Lidocaine/Prilocaine 1 GAVI DAILY PRN 01/02 1645 AC TOP Morphine Sulfate 2 MG Q4P PRN 01/02 1430 AC 01/07 IV 0459 Multivitamins 1 TAB DAILY 01/03 1000 AC 01/06 PO 1722 Norepinephrine 4 MG Q16H 01/04 1000 AC 01/06 Sodium Chloride 250 ML IV 1439 Nystatin 5 ML 4 TIMES/DAY 01/06 1800 AC 01/06 PO 01/09 1401 1721 Polyethylene Glycol 17 GM DAILY 01/05 1349 AC PO Senna 187 MG AT BEDTIME 01/05 2200 AC 01/06 PO 2104 Sevelamer Carbonate 2,400 MG WM 01/02 1700 AC 01/07 PO 0755 Impression/Plan Impression/Problem List Impression: Patient is a 57-year-old male with past medical history significant for peripheral arterial disease status post right [id number] amputation, end- stage renal disease on hemodialysis, coronary artery disease status post PCI and 1 drug-eluting stent in the left main circumflex artery (September 2017) and status post quadruple CABG (2006), diabetes, history of obstructive sleep apnea on CPAP at night, chronic anemia, most recent admission for septic arthritis and staph aureus sepsis, mitral valve endocarditis, osteomyelitis, history of C. difficile presented this admission after he was found to be hypotensive and tachycardic during dialysis with report of recent fatigue and dyspnea. #Respiratory Stable. Pt on RA and satting well. 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 postop day 5, OR culture negative so far -Relapse of his endocarditis,SAM negative for vegetations -Seeding from bacteremia diskitis in setting of IE CT scan spine with IV contarst negative, (suboptimal study and pt not a candidate for MRI with gadolinium) -Ingular consolidation with air bronchograms which favors atelectasis, although pneumonia could not excluded on imaging Infected lines s/p R.femoral TLC removal 2/2 MSSA bacteremia x2, and right IJ removal 2/2 fever spike and leukocytosis * S/p Proline placement in L- IJ on 01/05 on Pressors Goal MAP 55 to 60 * Monitor fever and WBC curve afebrile without white count. * BCx2 seconds set negative BCx2 thirds set negative * Continue cefazolin 2g daily after dialysis 4 to 6 weeks Cardiovascular #Atrial fibrillation: Pt paroxysmal afib and is itnermittently going in and out of A.fib 2/2 sepsis versus mitral valve regurgitation.Pt was started on Heparin on 12/28/2017. Heparin drip has been held intermittently for surgery and drop in H&H 2/2 to postop bleeding from surgical site * CBC stabe, continue heparin drip #Hypotension: Patient remains on pressors via L-IJ Levophed @2mcg. He came off pressors around 9 PM yesterday blood pressure dropped to 80/40. Levophed restarted around midnight * Decrease MAP to 55- 60, Try to wean off today #CAD s/p stent and CABG : Chronic and stable * Continue Aspirin, Clopidogrel, statin #Mitral regurgitation and possible perforation on SAM Possible mitral valve surgery as an outpatient #Type II IA: Resolved. Peak troponin 0.23 on 12/27 Hemetology #Chronic Anemia H/H dropped from 9 to 6.8/21 on 01/05. Hemoglobin 8 to 9 is his baseline. He recieved 1 unit pRBCS postop on 01/03 and 1 units on 01/05. Likely secondary to bleeding from surgical site.CT scan negative for retroperitoneal bleed * H/H stable, continue to monitor #Leukocytosis resolved Metabolic #Transaminitis -Resolved Likely reactive postop. Statin was initially held and later restarted Alimentary #Dialysis diet #Continue Colace MiraLAX and docusate Nephrology #ESRD: Dialysis on 01/09 * Use 12.5 g of 25% IV albumin Q30 PRN for SBP <100 for BP maintaince during dialysis * Continue Epojen, Sensipar and Sevelamer DVT prophylaxis IV Heparin Problem List: 1. Renal failure Pain Ratin Tomorrow's Labs & Rationales: cbc icu bundle Plan DVT/Prophylaxis: Saul Toscano MD 01/07/18 0926: Attending MD Review Statement Attending Sign Off Attending Cosign Statement: I have: examined this patient, reviewed avalbl EMR data, personally reviewd images, discussd w/resident/PA/[employer]SISTANT [employer], discussed mgmt plan w/whit, discussed mgmt plan w/CM, discussed mgmt plan w/pt, agreed w/resident/PA/[employer]SIST[employer], amended to note. Other Findings: ISaul M.D. have examined this patient, reviewed available EMR data, personally reviewed images, discussed with resident/PA/[employer]SISTANT [employer], discussed management plan with housestaff and nursing staff, discussed managment plan all of healthcare providers, discussed management plan with patient and/or family, agreed with resident/PA/ASSISTANT [employer]. The past history and parts of the chart have been autopopulated. Impression 57 year old man * staph aureus sepsis * s/p aka * ESRD on HD * chronic anemia * a.fib on heparin gtt * s/p sam showing ? perforation in posterior leaflet without obvious clinical significance and will require surveillance Plan -s/p proline -f/u nephrology, ID, vascular surgery, cardiology -again febrile, pressors -monitor cbc -HD per renal -map goal 60 DVT prophylaxis at all times TTS 35 min TTS 35 min DVT prophylaxis at all times TTS 35 min
[2018-01-07 08:37] LABS: PTT 46 SEC (25-37)
--- NOTE | 2018-01-07 11:16 | PN- Infect Dx ---
Subjective Subjective: No fever; Hypotensive; levophed restarted last evening. Review of Systems Comments: 12 points reviewed as noted, otherwise negative Objective Last 24 Hrs of Vital Signs/I&O Vital Signs Date Time Temp Pulse Resp B/P B/P Pulse O2 O2 Flow FiO2 Mean Ox Delivery Rate 01/07 0800 97 Room Air 01/07 0800 97.8 74 18 102/52 97 Room Air 01/07 0544 72 96 01/07 0400 98 Room Air 01/07 0244 69 99 01/07 0021 71 97 01/07 0000 94 Room Air 01/07 0000 97.4 70 20 82/40 94 CPAP 01/06 2230 77 97 01/06 2000 93 Room Air 01/06 1600 94 Room Air Room Air 01/06 1600 97.2 76 17 122/62 98 Room Air Room Air 01/06 1439 70 107/63 01/06 1200 94 Room Air Room Air Intake & Output 01/07 1600 01/07 0800 01/07 0000 Intake Total 258 543 Output Total Balance 258 543 Intake, IV 258 193 Intake, Oral 350 Number 1 Bowel Movements Patient 206 lb Weight Weight Bed scale Measurement Method Physical Exam Other Physical Findings: General Appearance: well developed/nourished, no apparent distress, alert, sedated Head: atraumatic Ears, Nose, Throat: normal ENT inspection Neck: normal inspection, supple Respiratory: normal breath sounds, chest non-tender, no respiratory distress, L- IJ Cardiovascular: irregularly irregular, 3/6 CHARLES apex Gastrointestinal: normal bowel sounds, soft, non-tender Extremities: normal inspection, normal capillary refill, no edema Cranial Nerves: normal hearing, normal speech Skin: pale S/p R AKA dressing intact Results Last 24 Hours of Lab Results: Laboratory Tests 01/07 01/07 01/06 0645 5030 3109 Chemistry Sodium (137 - 145 mmol/L) 138 Potassium (3.5 - 5.1 mmol/L) 4.0 Chloride (98 - 107 mmol/L) 101 Carbon Dioxide (22 - 30 mmol/L) 28 Anion Gap (5 - 16) 9 BUN (9 - 20 mg/dL) 27 H Creatinine (0.7 - 1.2 mg/dL) 4.0 H Estimated GFR (>60 ml/min) 16 L Glucose (65 - 99 mg/dL) 90 Calcium (8.4 - 10.2 mg/dL) 8.0 L Phosphorus (2.5 - 4.5 mg/dL) 3.3 Magnesium (1.6 - 2.3 mg/dL) 2.1 Total Bilirubin (0.2 - 1.3 mg/dL) 0.4 AST (17 - 59 U/L) 14 L ALT (21 - 72 U/L) 21 Albumin (3.5 - 5.0 g/dL) 2.7 L Coagulation APTT (25 - 37 SEC) 46 H 40 H Hematology CBC w Diff NO MAN DIFF REQ WBC (4.8 - 10.8 /CUMM) 7.5 RBC (4.70 - 6.10 /CUMM) 2.67 L Hgb (14.0 - 18.0 G/DL) 8.2 L Hct (42 - 52 %) 25.0 L MCV (80.0 - 94.0 FL) 93.8 MCH (27.0 - 31.0 PG) 30.7 MCHC (33.0 - 37.0 G/DL) 32.8 L RDW (11.5 - 14.5 %) 16.5 H Plt Count (130 - 400 /CUMM) 150 MPV (7.4 - 10.4 FL) 9.1 Gran % (42.2 - 75.2 %) 76.4 H Lymphocytes % (20.5 - 51.1 %) 16.7 L Monocytes % (1.7 - 9.3 %) 4.9 Eosinophils % (0 - 5 %) 1.9 Basophils % (0.0 - 2.0 %) 0.1 Absolute Granulocytes (1.4 - 6.5 /CUMM) 5.8 Absolute Lymphocytes (1.2 - 3.4 /CUMM) 1.3 Absolute Monocytes (0.10 - 0.60 /CUMM) 0.4 Absolute Eosinophils (0.0 - 0.7 /CUMM) 0.1 Absolute Basophils (0.0 - 0.2 /CUMM) 0 01/06 2151 Hematology CBC w Diff NO MAN DIFF REQ WBC (4.8 - 10.8 /CUMM) 6.6 RBC (4.70 - 6.10 /CUMM) 2.61 L Hgb (14.0 - 18.0 G/DL) 8.0 L Hct (42 - 52 %) 24.4 L MCV (80.0 - 94.0 FL) 93.5 MCH (27.0 - 31.0 PG) 30.7 MCHC (33.0 - 37.0 G/DL) 32.8 L RDW (11.5 - 14.5 %) 16.3 H Plt Count (130 - 400 /CUMM) 122 L MPV (7.4 - 10.4 FL) 9.4 Gran % (42.2 - 75.2 %) 82.8 H Lymphocytes % (20.5 - 51.1 %) 11.6 L Monocytes % (1.7 - 9.3 %) 4.0 Eosinophils % (0 - 5 %) 1.5 Basophils % (0.0 - 2.0 %) 0.1 Absolute Granulocytes (1.4 - 6.5 /CUMM) 5.5 Absolute Lymphocytes (1.2 - 3.4 /CUMM) 0.8 L Absolute Monocytes (0.10 - 0.60 /CUMM) 0.3 Absolute Eosinophils (0.0 - 0.7 /CUMM) 0.1 Absolute Basophils (0.0 - 0.2 /CUMM) 0 Last 24 Hours of Brendan Results: SPEC #: [id number] BRIAN: 01/03/18 STATUS: RES RECD: 01/03/[address] [facility] [address]: Laron MARTINEZ, Kimmy SOURCE: BLOOD ENTR: 01/03/[address] [facility] [address]: Karen MARTINEZ, Enma Merino SPDESC: 1ST/VENOUS Michelle MARTINEZ,Clinton Alvarenga MD,Saul ORDERED: BLOOD CULTURE Procedure Result > BLOOD CULTURE REPORT Preliminary 01/04/181220 No growth after 1 day incubation. Specimen is examined continuously for 5 days before final report unless culture becomes positive. Recent Imaging Studies: YULIA 2 D echo: CONCLUSIONS Normal LV chamber size, wall thickness and systolic function. The estimated LVEF is 55%. There are no focal wall motion of modalities. The mitral valve is thickened and has poor coaptation. There is moderate mitral annular calcification. There is a possible perforation seen within the posterior leaflet. There is severe mitral regurgitation. No vegetations are seen. No cardiac vegetations are seen. Nic Keenan M.D. 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 Source of bacteremia still unclear; YULIA negative vegetations; possible perforation; severe MR; now status post R AKA; evaluated for possible residual infection related to the right BKA stump (OR culture from 01/02 no growth to date ). Another focus that may have been seeded from the recent bacteremia (10% patient w/ IE can develop diskitis). Underwent CT spine (results as noted; no OM) and CT of the chest/abd revealing possible LLL pneumonia vs atelectasis and a ventral hernia mesh repair (? possible source of infection). Question LLL infiltrate (CXR 12/30); repeat CXR on 01/03 after spiking fever revealing b/l pleural effusions; if persistent fever/hypotension CT abd/pelvis eval occult abscess; also MRI spine to be considered. Leukocytosis/resolved Suggestion: 1. Cont current abx regimen Cefazolin 2 gm after HD for total 4-6 weeks. 2. Call if spiking fever again. 3. F/u cardiology recom; requires MVR.
[2018-01-07 16:00] VITALS: BP 84/46
[2018-01-07 16:43] LABS: PTT 73 SEC (25-37)
--- NOTE | 2018-01-07 19:16 | PN- Cardiology ---
Subjective Subjective: The patient is awake and alert with no current complaints. No chest pain. No palpitations. No nausea or vomiting. No lightheadedness Objective Vital Signs and I&Os Vital Signs Date Time Temp Pulse Resp B/P B/P Pulse O2 O2 Flow FiO2 Mean Ox Delivery Rate 01/07 1719 77 92/50 01/07 1600 97.4 74 16 84/46 96 Room Air 01/07 1600 96 Room Air 01/07 1200 97 01/07 0800 97 Room Air 01/07 0800 97.8 74 18 102/52 97 Room Air 01/07 0544 72 96 01/07 0400 98 Room Air 01/07 0244 69 99 01/07 0021 71 97 01/07 0000 94 Room Air 01/07 0000 97.4 70 20 82/40 94 CPAP 01/06 2230 77 97 Intake & Output 01/07 1600 01/07 0800 / 0000 01/06 1600 01/06 0800 01/06 0000 Intake Total 559 258 543 537 189 450.4 Output Total 0 Balance 559 258 543 537 189 450.4 Intake, IV 319 258 193 87 89 90.4 Intake, Oral 240 350 450 100 360 Number 1 1 Bowel Movements Output, Urine 0 Patient 206 lb Weight Weight Bed scale Measurement Method Physical Exam: General: Nontoxic, no apparent distress. HEENT: Sclera and conjunctiva within normal limits, without xanthelasmas. Neck: Carotids 2+ without bruits. Respiratory: Clear to auscultation, air movement is good, without accessory respiratory muscle use. Heart: Regular rate and rhythm, 2/6 systolic ejection murmur at left sternal border, without JVD. Abdomen: Soft, nontender, no masses, normoactive bowel sounds. Extremities: Without clubbing, cyanosis, without edema. Neuro: Nonfocal exam, strength, 5 out of 5 Skin: Within normal limits without lesions. Psych: Mood and affect: Normal Current Medications: Current Medications Sig/Bobo Start time Last Medication Dose Route Stop Time Status Admin Albumin Human 12.5 GM .Q30MIN PRN 01/02 1000 AC 01/04 IV 1058 Aspirin Buffered 81 MG DAILY 01/03 1000 AC 01/07 PO 1045 Atorvastatin Calcium 10 MG 1700 01/05 1700 AC 01/07 PO 1640 Bisacodyl 5 MG DAILY 01/06 1345 AC 01/07 PO 1046 Cefazolin Sodium 2 GM 01/04 1000 AC 01/06 N/A 1 UNIT IV 1819 Cinacalcet 30 MG 1700 01/02 1700 AC 01/07 PO 1639 Clopidogrel Bisulfate 75 MG 01/05 AC 01/07 PO 2018 Cyanocobalamin 1,000 MCG DAILY 01/03 1000 AC 01/07 PO 1046 Docusate Sodium 100 MG DAILY 01/03 1000 AC 01/07 PO 1045 Epoetin Jaron 4,000 UNIT MoWeFr PRN 01/06 1000 AC IV Epoetin Jaron 3,000 UNIT MoWeFr PRN 01/06 1000 AC IV Heparin Sodium 3,648 UNIT ONCE ONE 01/07 0900 DC 01/07 (Porcine) IV 01/07 09 1039 Heparin Sodium 25,000 UNIT Q24H 01/06 1515 AC 01/07 (Porcine) IV 1038 Sodium Chloride 500 ML Lidocaine/Prilocaine 1 GAVI DAILY PRN 01/02 1645 AC TOP Morphine Sulfate 2 MG Q4P PRN 01/02 1430 AC 01/07 IV 2024 Multivitamins 1 TAB DAILY 01/03 1000 AC 01/07 PO 1046 Norepinephrine 4 MG Q16H 01/04 1000 AC 01/06 Sodium Chloride 250 ML IV 1439 Nystatin 5 ML 4 TIMES/DAY 01/06 1800 AC 01/06 PO 01/09 1401 1721 Polyethylene Glycol 17 GM DAILY 01/05 1349 AC PO Senna 187 MG AT BEDTIME 01/05 2200 AC 01/06 PO 2104 Sevelamer Carbonate 2,400 MG WM 01/02 1700 AC 01/07 PO 1640 Results Last 48 Hrs of Labs/Mics: Laboratory Tests 01/07/18 1500: APTT 73 H 01/07/18 0645: APTT 46 H 01/07/18 0445: Anion Gap 9, Estimated GFR 16 L, Glucose 90, Calcium 8.0 L, Phosphorus 3.3, Magnesium 2.1, Total Bilirubin 0.4, AST 14 L, ALT 21, Albumin 2.7 L, CBC w Diff NO MAN DIFF REQ, RBC 2.67 L, MCV 93.8, MCH 30.7, MCHC 32.8 L, RDW 16.5 H , MPV 9.1, Gran % 76.4 H, Lymphocytes % 16.7 L, Monocytes % 4.9, Eosinophils % 1.9, Basophils % 0.1, Absolute Granulocytes 5.8, Absolute Lymphocytes 1.3, Absolute Monocytes 0.4, Absolute Eosinophils 0.1, Absolute Basophils 0 01/06/18 2315: APTT 40 H 01/06/181: CBC w Diff NO MAN DIFF REQ, RBC 2.61 L, MCV 93.5, MCH 30.7, MCHC 32.8 L, RDW 16.3 H, MPV 9.4, Gran % 82.8 H, Lymphocytes % 11.6 L, Monocytes % 4.0, Eosinophils % 1.5, Basophils % 0.1, Absolute Granulocytes 5.5, Absolute Lymphocytes 0.8 L, Absolute Monocytes 0.3, Absolute Eosinophils 0.1, Absolute Basophils 0 01/06/18 0400: Anion Gap 14, Estimated GFR 11 L, Glucose 105 H, Calcium 8.1 L, Phosphorus 4.6 H, Magnesium 2.0, Total Bilirubin 0.5, AST 26, ALT 32, Albumin 2.9 L, CBC w Diff NO MAN DIFF REQ, RBC 2.65 L, MCV 93.7, MCH 30.8, MCHC 32.9 L, RDW 16.3 H, MPV 9.6, Gran % 68.0, Lymphocytes % 22.2, Monocytes % 7.0, Eosinophils % 2.4, Basophils % 0.4, Absolute Granulocytes 4.7, Absolute Lymphocytes 1.5, Absolute Monocytes 0.5, Absolute Eosinophils 0.2, Absolute Basophils 0, Random Vancomycin 13.8 Assessment/Plan Assessment/Plan 1. Coronary disease by history status post coronary bypass surgery 2006 with complex PCI to the left main into the circumflex September 2017 with normal LV function 2. Hx of Hypertension 3. Peripheral arterial disease status post prior amputation now S/P right AKA 4. End-stage renal disease on dialysis 5. 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 Repeat YULIA to 01/02/18 was negative for vegetations; however, with severe mitral regurgitation and possible perforation 6. Diabetes 7. Fever and chills with hypotension most likely secondary to sepsis. 8. Elevated troponins, minimal, not due to ACS 9. Intermittent atrial fibrillation possibly due to sepsis Plan: * Continue current cardiac medications. * Surgical repair of mitral valve planned for perforation of the posterior mitral leaflet * Anticoagulation on hold secondary to anemia * Hemodialytsys as per renal Continue telemetry? Yes
[2018-01-08 00:13] VITALS: BP 76/44
[2018-01-08 03:47] LABS: ABSOLUTE BASOPHIL COUNT 0 /CUMM (0.0-0.2); ABSOLUTE EOSINOPHIL COUNT 0.1 /CUMM (0.0-0.7); ABSOLUTE GRANULOCYTE CT 4.2 /CUMM (1.4-6.5); ABSOLUTE LYMPH COUNT 1.3 /CUMM (1.2-3.4); ABSOLUTE MONOCYTE COUNT 0.3 /CUMM (0.10-0.60); BASOPHIL % 0.2 % (0.0-2.0); EOSINOPHIL % 2.3 % (0-5); GRANULOCYTE % 70.6 % (42.2-75.2); HEMATOCRIT 23.6 % (42-52); MEAN CORPUSCULAR HGB 30.2 PG (27.0-31.0); MEAN CORPUSCULAR HGB CONC 31.9 G/DL (33.0-37.0); MEAN CORPUSCULAR VOLUME 94.6 FL (80.0-94.0); MEAN PLATELET VOLUME 9.1 FL (7.4-10.4); PLATELET COUNT 126 /CUMM (130-400); RBC DISTRIBUTION WIDTH 16.2 % (11.5-14.5)
[2018-01-08 03:56] LABS: PTT 66 SEC (25-37)
[2018-01-08 08:00] VITALS: BP 78/49
--- NOTE | 2018-01-08 10:27 | PN- Resident CRCU ---
Isidoro Solomon 01/08/18 1026: Subjective HPI/CRCU Issues: Blending Machine Feeder hypertension End-stage renal disease on hemodialysis MSSA mitral valve endocarditis 24 Hour Events: Feels well overall. Afebrile. Sinus rhythm. Was off levophed. He developed hypotension this morning, 67/43.Denies any lightheadedness, dizziness, chest pain or palpitations. No headaches. Objective Vital Signs & I&O Last 8 Hrs of Vitals and I&O: Intake & Output 01/08 1600 Intake Total Output Total Balance Patient 210 lb Weight Weight Bed scale Measurement Method Exam General Appearance: well developed/nourished, no apparent distress, alert Respiratory: normal breath sounds Cardiovascular: regular rate/rhythm, edema Gastrointestinal: normal bowel sounds, soft Extremities: normal inspection, right lower extremity-status post AKA, no erythema, no swelling, tenderness to palpation. Left lower extremity-1+ pitting edema. Central Line Site: left IJ Current Medications: Current Medications Sig/Bobo Start time Last Medication Dose Route Stop Time Status Admin Albumin Human 12.5 GM .Q30MIN PRN 01/02 1000 AC 01/04 IV 1058 Aspirin Buffered 81 MG DAILY 01/03 1000 AC 01/08 PO 1102 Atorvastatin Calcium 10 MG 01/05 1700 AC 01/07 PO 1640 Bisacodyl 5 MG DAILY 01/06 1345 AC 01/08 PO 1101 Cefazolin Sodium 2 GM 01/04 1000 DC 01/06 N/A 1 UNIT IV 1819 Cinacalcet 30 MG 01/02 1700 AC 01/07 PO 1639 Clopidogrel Bisulfate 75 MG 01/05 2000 AC 01/07 PO 2018 Cyanocobalamin 1,000 MCG DAILY 01/03 1000 AC 01/08 PO 1101 Docusate Sodium 100 MG DAILY 01/03 1000 AC 01/08 PO 1101 Epoetin Jaron 4,000 UNIT MoWeFr PRN 01/06 1000 AC IV Epoetin Jaron 3,000 UNIT MoWeFr PRN 01/06 1000 AC IV Heparin Sodium 25,000 UNIT Q24H 01/06 1515 AC 01/07 (Porcine) IV 1038 Sodium Chloride 500 ML Lidocaine/Prilocaine 1 GAVI DAILY PRN 01/02 1645 AC TOP Morphine Sulfate 2 MG Q4P PRN 01/02 1430 AC 01/08 IV 1107 Multivitamins 1 TAB DAILY 01/03 1000 AC 01/08 PO 1101 Norepinephrine 4 MG Q16H 01/04 1000 AC 01/08 Sodium Chloride 250 ML IV 1100 Nystatin 5 ML 4 TIMES/DAY 01/06 1800 AC 01/06 PO 01/09 1401 1721 Polyethylene Glycol 17 GM DAILY 01/05 1349 AC PO Senna 187 MG AT BEDTIME 01/05 2200 AC 01/06 PO 2104 Sevelamer Carbonate 2,400 MG WM 01/02 1700 AC 01/08 PO 1102 Impression/Plan Impression/Problem List Impression: 57-year-old gentleman with extensive medical history, staph aureus sepsis, end- stage renal disease on hemodialysis, chronic anemia, is now status post above knee amputation, afebrile and feels well overall. 1. Hypotension. Afebrile, with no other signs of infection. Currently on cefazolin. Status post proline placement. Unsure, if this is secondary to subnormal corticosteroid production due to critical illness. In the absence of any structural defects in the hypothalamic pituitary adrenal axis, this likely would be functional or relative adrenal insufficiency. Will order a.m. cortisol(levels less than 3) can be suggestive. We will request an endocrinology consult. Continue monitoring for any infection. Restart Levophed with a map goal of 60. 2. Chronic anemia. We'll continue to monitor. Likely secondary to low EPO levels owing to his kidney disease. Epogen dose has been increased. 3. Atrial fibrillation. Continue rate control and anticoagulation. 4. Continue hemodialysis. Full code. DVT prophylaxis with heparin. Renal dialysis diet. Problem List: 1. Osteomyelitis Pain Ratin Tomorrow's Labs & Rationales: Critical Illness Plan DVT/Prophylaxis: Saul Toscano MD 01/08/18 1034: Attending MD Review Statement Attending Sign Off Attending Cosign Statement: I have: examined this patient, reviewed avalbl EMR data, personally reviewd images, discussd w/resident/PA/COMMUNITY AFFAIRS DIRECTOR, discussed mgmt plan w/whit, discussed mgmt plan w/CM, discussed mgmt plan w/pt, agreed w/resident/PA/COMMUNITY AFFAIRS DIRECTOR, amended to note. Other Findings: Saul Evans M.D. have examined this patient, reviewed available EMR data, personally reviewed images, discussed with resident/PA/COMMUNITY AFFAIRS DIRECTOR, discussed management plan with housestaff and nursing staff, discussed managment plan all of healthcare providers, discussed management plan with patient and/or family, agreed with resident/PA/COMMUNITY AFFAIRS DIRECTOR. The past history and parts of the chart have been autopopulated. Impression 57 year old man * staph aureus sepsis * s/p aka * ESRD on HD * chronic anemia * a.fib on heparin gtt * s/p sam showing ? perforation in posterior leaflet without obvious clinical significance and will require surveillance Plan -given difficulty with titrating pressors, unclear etiology, concern for adrenal insufficiency, will send routine testing and endocrinology input to see if any other suggestions can be offered -s/p proline -f/u nephrology, ID, vascular surgery, cardiology -again febrile, pressors -monitor cbc -HD per renal -map goal 55-60 DVT prophylaxis at all times TTS 35 min
--- NOTE | 2018-01-08 13:07 | PN- Infect Dx ---
Subjective Subjective: No fever; hypotensive requiring Levophed. Review of Systems Comments: 12 points reviewed as noted, otherwise negative. Objective Last 24 Hrs of Vital Signs/I&O Vital Signs Date Time Temp Pulse Resp B/P B/P Pulse O2 O2 Flow FiO2 Mean Ox Delivery Rate 01/08 1200 95 Room Air 01/08 1100 59 88/47 01/08 0800 95 Room Air / 0800 97.4 68 27 78/49 95 Room Air / 0557 66 / 0400 99 CPAP Room Air 01/08 0305 66 96 01/08 0013 98 CPAP Room Air / 0013 96.5 67 18 76/44 98 CPAP Room Air / 0008 66 99 01/07 2243 71 96 01/07 1719 77 92/50 01/07 1600 97.4 74 16 84/46 96 Room Air 01/07 1600 96 Room Air Intake & Output 01/08 1600 01/08 0800 / 0000 Intake Total 296 466 Output Total Balance 296 466 Intake, IV 296 296 Intake, Oral 170 Patient 210 lb Weight Weight Bed scale Measurement Method Physical Exam Other Physical Findings: General Appearance: well developed/nourished, no apparent distress, alert, sedated Head: atraumatic Ears, Nose, Throat: normal ENT inspection Neck: normal inspection, supple Respiratory: normal breath sounds, chest non-tender, no respiratory distress, L- IJ Cardiovascular: irregularly irregular, 3/6 CHARLES apex Gastrointestinal: normal bowel sounds, soft, non-tender Extremities: normal inspection, normal capillary refill, no edema Cranial Nerves: normal hearing, normal speech Skin: pale S/p R AKA dressing intact Results Last 24 Hours of Lab Results: Laboratory Tests 01/08 01/07 0315 1500 Chemistry Sodium (137 - 145 mmol/L) 134 L Potassium (3.5 - 5.1 mmol/L) 4.0 Chloride (98 - 107 mmol/L) 97 L Carbon Dioxide (22 - 30 mmol/L) 27 Anion Gap (5 - 16) 10 BUN (9 - 20 mg/dL) 37 H Creatinine (0.7 - 1.2 mg/dL) 5.4 *H Estimated GFR (>60 ml/min) 11 L Glucose (65 - 99 mg/dL) 83 Calcium (8.4 - 10.2 mg/dL) 8.0 L Phosphorus (2.5 - 4.5 mg/dL) 3.6 Magnesium (1.6 - 2.3 mg/dL) 2.1 Total Bilirubin (0.2 - 1.3 mg/dL) 0.5 AST (17 - 59 U/L) 15 L ALT (21 - 72 U/L) 19 L Albumin (3.5 - 5.0 g/dL) 2.6 L Cortisol AM Sample (4.46 - 22.7 ug/dL) Pending Coagulation APTT (25 - 37 SEC) 66 H 73 H Hematology CBC w Diff NO MAN DIFF REQ WBC (4.8 - 10.8 /CUMM) 6.0 RBC (4.70 - 6.10 /CUMM) 2.50 L Hgb (14.0 - 18.0 G/DL) 7.5 L Hct (42 - 52 %) 23.6 L MCV (80.0 - 94.0 FL) 94.6 H MCH (27.0 - 31.0 PG) 30.2 MCHC (33.0 - 37.0 G/DL) 31.9 L RDW (11.5 - 14.5 %) 16.2 H Plt Count (130 - 400 /CUMM) 126 L MPV (7.4 - 10.4 FL) 9.1 Gran % (42.2 - 75.2 %) 70.6 Lymphocytes % (20.5 - 51.1 %) 22.4 Monocytes % (1.7 - 9.3 %) 4.5 Eosinophils % (0 - 5 %) 2.3 Basophils % (0.0 - 2.0 %) 0.2 Absolute Granulocytes (1.4 - 6.5 /CUMM) 4.2 Absolute Lymphocytes (1.2 - 3.4 /CUMM) 1.3 Absolute Monocytes (0.10 - 0.60 /CUMM) 0.3 Absolute Eosinophils (0.0 - 0.7 /CUMM) 0.1 Absolute Basophils (0.0 - 0.2 /CUMM) 0 Last 24 Hours of Brendan Results: reviewed Recent Imaging Studies: reviewed Assessment/Plan ID Impression: 57-year-old man with a history of diabetes, coronary artery disease, status post angioplasty and stent over 3 months prior to admission, end-stage renal disease, maintained on hemodialysis Mondays, Wednesdays and Fridays via a left forearm fistula, status post a right BKA 8 years prior to admission, complicated by several infections of the stump secondary to MSSA, most recently 2-1/2 months prior to admission, with evidence of osteomyelitis at that time, and with a transthoracic echo revealing a possible mitral valve vegetation, treated with a 6 week course of Cefazolin, admitted on December 26 with lethargy and chills, found to be febrile with a normal white blood cell count and with blood cultures sepsis. Source of bacteremia still unclear; YULIA negative vegetations; possible perforation; severe MR; now status post R AKA; evaluated for possible residual infection related to the right BKA stump (OR culture from 01/02 no growth to date ). Post op fever; now resolved; now requiring pressors for BP support. Another focus that may have been seeded from the recent bacteremia (10% patient w/ IE can develop diskitis). Underwent CT spine (results as noted; no OM) and CT of the chest/abd revealing possible LLL pneumonia vs atelectasis and a ventral hernia mesh repair. Question LLL infiltrate (CXR 12/30); repeat CXR on 01/03 after spiking fever revealing b/l pleural effusions; if persistent fever/hypotension CT abd/pelvis eval occult abscess; also MRI spine to be considered. Leukocytosis/resolved Suggestion: 1. Cont current abx regimen Cefazolin 2 gm after HD for total 4-6 weeks. 2. Call if spiking fever again. BC x2 from L AVF at next HD. 3. F/u cardiology recom; requires MVR.
[2018-01-08 16:00] VITALS: BP 87/50
[2018-01-08 16:31] LABS: PTT 61 SEC (25-37)
--- NOTE | 2018-01-08 20:00 | PN- Cardiology ---
Subjective Subjective: The patient is awake and alert with no current complaints. No chest pain. No palpitations. No nausea or vomiting. No lightheadedness Objective Vital Signs and I&Os Vital Signs Date Time Temp Pulse Resp B/P B/P Pulse O2 O2 Flow FiO2 Mean Ox Delivery Rate / 1600 96 Room Air 30% / 1600 97.8 72 72 87/50 96 Room Air 03/ 1200 95 Room Air 03/04 1100 59 88/47 / 0800 95 Room Air / 0800 97.4 68 27 78/49 95 Room Air 03/04 0557 66 03/04 0400 99 CPAP Room Air 03/ 0305 66 96 03/04 0013 98 CPAP Room Air 03/04 0013 96.5 67 18 76/44 98 CPAP Room Air / 0008 66 99 /03 2243 71 96 Intake & Output / 1600 03/04 0800 03/04 0000 03/03 1600 01/07 0800 /03 0000 Intake Total 683 296 466 559 258 543 Output Total 0 0 Balance 683 296 466 559 258 543 Intake, IV 323 296 296 319 258 193 Intake, Oral 360 170 240 350 Number 0 1 1 Bowel Movements Output, Urine 0 0 Patient 210 lb 206 lb Weight Weight Bed scale Bed scale Measurement Method Physical Exam: HEENT: Sclera and conjunctiva within normal limits, without xanthelasmas. Neck: Carotids 2+ without bruits. Respiratory: Clear to auscultation, air movement is good, without accessory respiratory muscle use. Heart: Regular rate and rhythm, 2/6 systolic ejection murmur at left sternal border, without JVD. Abdomen: Soft, nontender, no masses, normoactive bowel sounds. Extremities: Without clubbing, cyanosis, without edema. Neuro: Nonfocal exam, strength, 5 out of 5 Skin: Within normal limits without lesions. Psych: Mood and affect: Normal Current Medications: Current Medications Sig/Bobo Start time Last Medication Dose Route Stop Time Status Admin Albumin Human 12.5 GM .Q30MIN PRN 01/02 1000 AC 01/04 IV 1058 Aspirin Buffered 81 MG DAILY 01/03 1000 AC 01/08 PO 1102 Atorvastatin Calcium 10 MG 1700 01/05 1700 AC 01/08 PO 1853 Bisacodyl 5 MG DAILY 01/06 1345 AC 01/08 PO 1101 Cefazolin Sodium 2 GM 01/04 1000 DC 01/06 N/A 1 UNIT IV 1819 Cinacalcet 30 MG 1700 01/02 1700 AC 01/08 PO 1605 Clopidogrel Bisulfate 75 MG 01/05 AC 01/08 PO 1943 Cyanocobalamin 1,000 MCG DAILY 01/03 1000 AC 01/08 PO 1101 Docusate Sodium 100 MG DAILY 01/03 1000 AC 01/08 PO 1101 Epoetin Jaron 4,000 UNIT MoWeFr PRN 01/06 1000 AC IV Epoetin Jaron 3,000 UNIT MoWeFr PRN 01/06 1000 AC IV Heparin Sodium 25,000 UNIT Q24H 01/06 1515 AC 01/08 (Porcine) IV 1611 Sodium Chloride 500 ML Hydrocortisone 100 MG Q8 01/08 1404 AC 01/08 Sodium Succinate IV 1536 Lidocaine/Prilocaine 1 GAVI DAILY PRN 01/02 1645 AC TOP Morphine Sulfate 2 MG Q4P PRN 01/02 1430 AC 01/08 IV 1606 Multivitamins 1 TAB DAILY 01/03 1000 AC 01/08 PO 1101 Norepinephrine 4 MG Q16H 01/04 1000 AC 01/08 Sodium Chloride 250 ML IV 1100 Nystatin 5 ML 4 TIMES/DAY 01/06 1800 AC 01/06 PO 01/09 1401 1721 Polyethylene Glycol 17 GM DAILY 01/05 1349 AC PO Senna 187 MG AT BEDTIME 01/05 2200 AC 01/06 PO 2104 Sevelamer Carbonate 2,400 MG WM 01/02 1700 AC 01/08 PO 1605 Results Last 48 Hrs of Labs/Mics: Laboratory Tests 01/08/18 1530: APTT 61 H 01/08/18 0315: Anion Gap 10, Estimated GFR 11 L, Glucose 83, Calcium 8.0 L, Phosphorus 3.6, Magnesium 2.1, Total Bilirubin 0.5, AST 15 L, ALT 19 L, Albumin 2.6 L, Cortisol AM Sample 7.8, APTT 66 H, CBC w Diff NO MAN DIFF REQ, RBC 2.50 L, MCV 94.6 H, MCH 30.2, MCHC 31.9 L, RDW 16.2 H, MPV 9.1, Gran % 70.6, Lymphocytes % 22.4, Monocytes % 4.5, Eosinophils % 2.3, Basophils % 0.2, Absolute Granulocytes 4.2, Absolute Lymphocytes 1.3, Absolute Monocytes 0.3, Absolute Eosinophils 0.1, Absolute Basophils 0 01/07/18 1500: APTT 73 H 01/07/18 0645: APTT 46 H 01/07/18 0445: Anion Gap 9, Estimated GFR 16 L, Glucose 90, Calcium 8.0 L, Phosphorus 3.3, Magnesium 2.1, Total Bilirubin 0.4, AST 14 L, ALT 21, Albumin 2.7 L, CBC w Diff NO MAN DIFF REQ, RBC 2.67 L, MCV 93.8, MCH 30.7, MCHC 32.8 L, RDW 16.5 H , MPV 9.1, Gran % 76.4 H, Lymphocytes % 16.7 L, Monocytes % 4.9, Eosinophils % 1.9, Basophils % 0.1, Absolute Granulocytes 5.8, Absolute Lymphocytes 1.3, Absolute Monocytes 0.4, Absolute Eosinophils 0.1, Absolute Basophils 0 01/06/18 2315: APTT 40 H 01/06/18 2151: CBC w Diff NO MAN DIFF REQ, RBC 2.61 L, MCV 93.5, MCH 30.7, MCHC 32.8 L, RDW 16.3 H, MPV 9.4, Gran % 82.8 H, Lymphocytes % 11.6 L, Monocytes % 4.0, Eosinophils % 1.5, Basophils % 0.1, Absolute Granulocytes 5.5, Absolute Lymphocytes 0.8 L, Absolute Monocytes 0.3, Absolute Eosinophils 0.1, Absolute Basophils 0 Assessment/Plan Assessment/Plan 1. Coronary disease by history status post coronary bypass surgery 2006 with complex PCI to the left main into the circumflex September 2017 with normal LV function 2. Hx of Hypertension 3. Peripheral arterial disease status post prior amputation now S/P right AKA 4. End-stage renal disease on dialysis 5. 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 Repeat YULIA to 01/02/18 was negative for vegetations; however, with severe mitral regurgitation and possible perforation 6. Diabetes 7. Fever and chills with hypotension most likely secondary to sepsis. 8. Elevated troponins, minimal, not due to ACS 9. Intermittent atrial fibrillation possibly due to sepsis Plan: * Continue current cardiac medications. * Wean off pressors as tolerated * Surgical repair of mitral valve planned for perforation of the posterior mitral leaflet * Anticoagulation on hold secondary to anemia * Hemodialysis as per renal Continue telemetry? Yes
[2018-01-09] VITALS: BP 110/60
[2018-01-09 03:54] LABS: ABSOLUTE BASOPHIL COUNT 0 /CUMM (0.0-0.2); ABSOLUTE EOSINOPHIL COUNT 0 /CUMM (0.0-0.7); ABSOLUTE LYMPH COUNT 0.5 /CUMM (1.2-3.4); ABSOLUTE MONOCYTE COUNT 0.1 /CUMM (0.10-0.60); BASOPHIL % 0.1 % (0.0-2.0); EOSINOPHIL % 0.1 % (0-5); GRANULOCYTE % 92.8 % (42.2-75.2); HEMATOCRIT 24.6 % (42-52); MEAN CORPUSCULAR HGB 30.4 PG (27.0-31.0); MEAN CORPUSCULAR HGB CONC 32.5 G/DL (33.0-37.0); MEAN CORPUSCULAR VOLUME 93.6 FL (80.0-94.0); MEAN PLATELET VOLUME 9.1 FL (7.4-10.4); RBC DISTRIBUTION WIDTH 16.6 % (11.5-14.5); RED BLOOD CELL CT 2.63 /CUMM (4.70-6.10); WHITE BLOOD CELL COUNT 7.5 /CUMM (4.8-10.8)
[2018-01-09 04:02] LABS: PTT 60 SEC (25-37)
[2018-01-09 04:25] LABS: PLATELET COUNT 150 /CUMM (130-400)
--- NOTE | 2018-01-09 07:12 | PN- Resident CRCU ---
Cricket MARTINEZ,Cathy 01/09/18 0712: Subjective HPI/CRCU Issues: MSSA Hypertension Result of cortisol deficiency ESRD on HD 24 Hour Events: Patient seen and examined. Sitting in the bed. Offers no complaints. Tmax 98 heart rate ranging in 80s to 70s telemetry strips showing first-degree AV block Blood pressure ranging between 80s to 110s/50s to 60s satting 95% on room air -Patient has been started again on pressors Levophed currently running at 1 MCG -Heparin drip running, / stable -Patient cortisol level on 01/08 was 7.8 consistent with relative adrenal insufficiency. That can be some contribution of narcotics on pituitary adrenal axis.Currently on hydrocortisone 100 mg IV every 8 hours -Sodium 133, potassium 4.7, BUN 48, creatinine 6.4, patient scheduled for dialysis -Fingersrticks 121, 124, 241 Objective Vital Signs & I&O Last 8 Hrs of Vitals and I&O: Vital Signs Date Time Temp Pulse Resp B/P B/P Pulse O2 O2 Flow FiO2 Mean Ox Delivery Rate / 0353 76 03/ 0350 94 CPAP Room Air 03/05 0235 71 110/60 03/05 0018 75 95 03/05 0000 94 CPAP Room Air 03/05 0000 97.0 73 18 110/60 94 CPAP Room Air 03/04 2213 77 93 03/04 1600 96 Room Air 30% 03/04 1600 97.8 72 72 87/50 96 Room Air 03/04 1200 95 Room Air 03/04 1100 59 88/47 Intake & Output / 1600 03/05 0800 03/05 0000 Intake Total 336 627 Output Total Balance 336 627 Intake, IV 336 337 Intake, Oral 290 Exam General Appearance: no apparent distress, alert, awake Head: atraumatic Neck: normal inspection Respiratory: normal breath sounds, chest non-tender, no respiratory distress Cardiovascular: regular rate/rhythm Gastrointestinal: normal bowel sounds, soft, non-tender Extremities: normal inspection Cranial Nerves: normal hearing, normal speech Other Physical Findings: R AKA Current Medications: Current Medications Sig/Bobo Start time Last Medication Dose Route Stop Time Status Admin Albumin Human 12.5 GM .Q30MIN PRN 01/02 1000 AC 01/04 IV 1058 Aspirin Buffered 81 MG DAILY 01/03 1000 AC 01/09 PO 0958 Atorvastatin Calcium 10 MG 1700 01/05 1700 AC 01/08 PO 1853 Bisacodyl 5 MG DAILY 01/06 1345 AC 01/09 PO 0957 Cinacalcet 30 MG 1700 01/02 1700 AC 01/08 PO 1605 Clopidogrel Bisulfate 75 MG 01/05 AC 01/08 PO 1943 Cyanocobalamin 1,000 MCG DAILY 01/03 1000 AC 01/09 PO 0959 Docusate Sodium 100 MG DAILY 01/03 1000 AC 01/09 PO 0958 Epoetin Jaron 4,000 UNIT MoWeFr PRN 01/06 1000 AC IV Epoetin Jaron 3,000 UNIT MoWeFr PRN 01/06 1000 AC IV Heparin Sodium 25,000 UNIT Q24H 01/06 1515 AC 01/08 (Porcine) IV 1611 Sodium Chloride 500 ML Hydrocortisone 50 MG Q8 01/10 0600 AC Sodium Succinate IV Hydrocortisone 100 MG Q8 01/08 1404 AC 01/09 Sodium Succinate IV 01/10 0000 0629 Lidocaine/Prilocaine 1 GAVI DAILY PRN 01/02 1645 AC TOP Morphine Sulfate 2 MG Q4P PRN 01/02 1430 AC 01/09 IV 0820 Multivitamins 1 TAB DAILY 01/03 1000 AC 01/09 PO 0959 Norepinephrine 4 MG Q16H 01/04 1000 AC 01/09 Sodium Chloride 250 ML IV 0235 Nystatin 5 ML 4 TIMES/DAY 01/06 1800 AC 01/09 PO 01/09 1401 0959 Polyethylene Glycol 17 GM DAILY 01/05 1349 AC 01/09 PO 0959 Senna 187 MG AT BEDTIME 01/05 2200 AC 01/08 PO 2150 Sevelamer Carbonate 2,400 MG WM 01/02 1700 AC 01/09 PO 0817 Impression/Plan Impression/Problem List Impression: Patient is a 57-year-old male with past medical history significant for peripheral arterial disease status post right [id number] amputation, end- stage renal disease on hemodialysis, coronary artery disease status post PCI and 1 drug-eluting stent in the left main circumflex artery (September 2017) and status post quadruple CABG (2006), diabetes, history of obstructive sleep apnea on CPAP at night, chronic anemia, most recent admission for septic arthritis and staph aureus sepsis, mitral valve endocarditis, osteomyelitis, history of C. difficile presented this admission after he was found to be hypotensive and tachycardic during dialysis with report of recent fatigue and dyspnea. #Respiratory Stable. Pt on RA and satting well. 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 postop day 5, OR culture negative so far -Relapse of his endocarditis,SAM negative for vegetations, perforation of mitral valve -Seeding from bacteremia diskitis in setting of IE CT scan spine with IV contarst negative, (suboptimal study and pt not a candidate for MRI with gadolinium) -Lingular consolidation with air bronchograms which favors atelectasis, although pneumonia could not excluded on imaging -Infected lines s/p R.femoral TLC removal 2/2 MSSA bacteremia x2, and right IJ removal 2/2 fever spike and leukocytosis * S/p Proline placement in L- IJ on 01/05 on Pressors Goal MAP 55 to 60 * Monitor fever and WBC curve afebrile without white count. * BCx2 seconds set negative BCx2 thirds set negative * Continue cefazolin 2g daily after dialysis 4 to 6 weeks Cardiovascular #Atrial fibrillation: Pt paroxysmal afib and is itnermittently going in and out of A.fib 2/2 sepsis versus mitral valve regurgitation.Pt was started on Heparin on 12/28/2017. Heparin drip has been held intermittently for surgery and drop in H&H 2/2 to postop bleeding from surgical site * CBC stabe, continue heparin drip #Hypotension: The patient has relative cortisol deficiency with cortisol level of 7.8. Patient remains on pressors via L-IJ Levophed @1mcg. He was off pressors on tuesday , Levophed restarted on tuesday with MAP of 50 * Solu-Cortef 100 mg IV Q8 switch to 50mg IV q8 tomorrow * MAP to 55- 60, Try to wean off pressor #CAD s/p stent and CABG : Chronic and stable * Continue Aspirin, Clopidogrel, statin #Mitral regurgitation and possible perforation on SAM Possible mitral valve surgery as an outpatient #Type II SC: Resolved. Peak troponin 0.23 on 12/27 Hemetology #Chronic Anemia H/H dropped from 08/04 to 6.8/21 on 01/05. Hemoglobin 8 to 9 is his baseline. He recieved 1 unit pRBCS postop on 01/03 and 1 units on 01/05. Likely secondary to bleeding from surgical site.CT scan negative for retroperitoneal bleed * H/H stable, continue to monitor #Leukocytosis resolved Metabolic #Transaminitis -Resolved Likely reactive postop. Statin was initially held and later restarted Alimentary #Dialysis diet #Continue Colace MiraLAX and docusate Nephrology #ESRD: Dialysis today 01/09 * Use 12.5 g of 25% IV albumin Q30 PRN for SBP <100 for BP maintaince during dialysis * Continue Epojen, Sensipar and Sevelamer DVT prophylaxis IV Heparin Problem List: 1. Renal failure Pain Ratin Tomorrow's Labs & Rationales: cbc bep Plan DVT/Prophylaxis: Saul Toscano MD 01/09/18 0923: Attending MD Review Statement Attending Sign Off Attending Cosign Statement: I have: examined this patient, reviewed avalbl EMR data, personally reviewd images, discussd w/resident/PA/AIRCRAFT STRUCTURE MECHANIC, discussed mgmt plan w/wiht, discussed mgmt plan w/CM, discussed mgmt plan w/pt, agreed w/resident/PA/AIRCRAFT STRUCTURE MECHANIC, amended to note. Other Findings: ISaul M.D. have examined this patient, reviewed available EMR data, personally reviewed images, discussed with resident/PA/AIRCRAFT STRUCTURE MECHANIC, discussed management plan with housestaff and nursing staff, discussed managment plan all of healthcare providers, discussed management plan with patient and/or family, agreed with resident/PA/AIRCRAFT STRUCTURE MECHANIC. The past history and parts of the chart have been autopopulated. Impression 57 year old man * staph aureus sepsis * s/p aka * ESRD on HD * chronic anemia * a.fib on heparin gtt * s/p sam showing ? perforation in posterior leaflet without obvious clinical significance and will require surveillance * adrenal insufficiency Plan -endocrinology appreciated, started on solucortef 100mg iv q8h, will follow recs -s/p proline -f/u nephrology, ID, vascular surgery, cardiology -again febrile, pressors -monitor cbc -HD per renal -map goal 55-60 DVT prophylaxis at all times TTS 35 min
--- NOTE | 2018-01-09 07:28 | Cons- Endocrinology ---
General Information and HPI Consulting Request Date of Consult: 01/09/18 Requested By: medical team Reason for Consult: possible adrenal insuficiency Source of Information: patient, old records Exam Limitations: no limitations History of Present Illness: This 57-year-old man has a history of diabetes mellitus type 2 since the early . His diabetes has been complicated by retinopathy and end-stage kidney disease presently on hemodialysis. The patient also has a history of coronary artery disease status post angioplasty and stent about 3-4 months prior to admission. He has had a previous CABG. 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 Recently had a revision and now has an [id number] amputation because of evidence of infection and osteomyelitis. The patient is being treated for bacterial endocarditis with a transthoracic echo showing a possible mitral valve vegetation. He was readmitted to the hospital on December 26 with lethargy and chills And found to have methicillin sensitive staph aureus as the source of which is still unclear. Apparently there has been trouble with the patient's blood pressure requiring pressors intermittently. The question of adrenal insufficiency was raised. A cortisol level done yesterday at 3 AM was only 7.6. This was at a time when the patient was hypotensive with a blood pressure systolic in the 70s. After discussion with the resident last night the patient was placed on hydrocortisone 100 mg IV every 8 hours. His blood pressure seems to be improving this morning but he is still on a small dose of Lopressor. Allergies/Medications Allergies: Coded Allergies: midodrine (HIVES 12/26/17) Home Med List: Aspirin (Ecotrin*) 81 MG TABLET.DR 1 TAB PO DAILY HEART/BLOOD (Reported) Atorvastatin Calcium 10 MG TABLET 1 TAB PO DAILY CHOLESTEROL (Reported) Cholecalciferol (Vitamin D3) (Vitamin D3) 2,000 UNIT TABLET 3 TAB PO DAILY VITAMIN SUPPORT (Reported) Cinacalcet HCl (Sensipar) 30 MG TABLET 1 TAB PO DAILY KIDNEYS (Reported) Clopidogrel Bisulfate (Clopidogrel) 75 MG TABLET 1 TAB PO DAILY BLOOD THINNER (Reported) Cyanocobalamin (Vitamin B-12) 1,000 MCG TABLET 1 TAB PO DAILY VITAMIN SUPPORT (Reported) Docusate Sodium 100 MG CAPSULE 1 CAP PO DAILY CONSTIPATION (Reported) Famotidine (Pepcid AC) 20 MG TABLET 1 TAB PO DAILY PRN GI (Reported) Folic Acid/Vit Bcomp,C (Dialyvite 800 Tablet) 0.8 MG TABLET 1 TAB PO DAILY VITAMIN SUPPORT (Reported) Lisinopril 2.5 MG TABLET 1 TAB PO DAILY HEART (Reported) Metoprolol Tartrate 25 MG TABLET 1 MG PO BID HEART/BP (Reported) Metoprolol Tartrate 25 MG TABLET 1 TAB PO Tuesday HEART/BP ( Reported) Metoprolol Tartrate (Lopressor) 50 MG TABLET 1 TAB PO BID HEART (Reported) Multivitamin (Daily Multiple Vitamin) 1 EACH TABLET 1 TAB PO DAILY VITAMIN SUPPORT (Reported) [place]-3 Acid Ethyl Esters (Lovaza) 1 GRAM CAPSULE 1 CAP PO BID CHOLESTEROL ( Reported) Oxycodone HCl/Acetaminophen (Percocet 5-325 MG Tablet) 5 MG-325 MG TABLET 1 TAB PO Q6-PRN PRN PAIN (Reported) Sennosides (Senokot) 8.6 MG TABLET 1-2 TAB PO QPM CONSTIPATION (Reported) Sevelamer Carbonate (Renvela) 800 MG TABLET 1 TAB PO WM KIDNEYS (Reported) Current Medications: Current Medications Sig/Bobo Start time Last Medication Dose Route Stop Time Status Admin Albumin Human 12.5 GM .Q30MIN PRN 01/02 1000 AC 01/04 IV 1058 Aspirin Buffered 81 MG DAILY 01/03 1000 AC 01/08 PO 1102 Atorvastatin Calcium 10 MG 01/05 1700 AC 01/08 PO 1853 Bisacodyl 5 MG DAILY 01/06 1345 AC 01/08 PO 1101 Cefazolin Sodium 2 GM 01/04 1000 DC 01/06 N/A 1 UNIT IV 1819 Cinacalcet 30 MG 01/02 1700 AC 01/08 PO 1605 Clopidogrel Bisulfate 75 MG 01/05 AC 01/08 PO 1943 Cyanocobalamin 1,000 MCG DAILY 01/03 1000 AC 01/08 PO 1101 Docusate Sodium 100 MG DAILY 01/03 1000 AC 01/08 PO 1101 Epoetin Jaron 4,000 UNIT MoWeFr PRN 01/06 1000 AC IV Epoetin Jaron 3,000 UNIT MoWeFr PRN 01/06 1000 AC IV Heparin Sodium 25,000 UNIT Q24H 01/06 1515 AC 01/08 (Porcine) IV 1611 Sodium Chloride 500 ML Hydrocortisone 100 MG Q8 01/08 1404 AC 01/09 Sodium Succinate IV 0629 Lidocaine/Prilocaine 1 GAVI DAILY PRN 01/02 1645 AC TOP Morphine Sulfate 2 MG Q4P PRN 01/02 1430 AC 01/08 IV 1606 Multivitamins 1 TAB DAILY 01/03 1000 AC 01/08 PO 1101 Norepinephrine 4 MG Q16H 01/04 1000 AC 01/09 Sodium Chloride 250 ML IV 0235 Nystatin 5 ML 4 TIMES/DAY 01/06 1800 AC 01/06 PO 01/09 1401 1721 Polyethylene Glycol 17 GM DAILY 01/05 1349 AC PO Senna 187 MG AT BEDTIME 01/05 2200 AC 01/08 PO 2150 Sevelamer Carbonate 2,400 MG WM 01/02 1700 AC 01/08 PO 1605 Review of Systems Review of Systems Constitutional: Denies: chills, fever. Cardiovascular: Denies: chest pain. Respiratory: Denies: short of breath. GI: Denies: nausea, vomiting. Neurological/Psychological: Reports: numbness. Denies: confusion. 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 Home Who Do You Live With? spouse Services at Home: Nursing, Occupational Therapy, Physical Therapy Smoking Status: Never Smoked ETOH Use: occasional use Illicit Drug Use: denies illicit drug use Functional Ability ADLs Independent: dressing, eating, toileting, bathing. Ambulation: independent, cane, Prosthesis IADLs Independent: shopping, housework, finances, food prep, telephone, transportation , medication admin. ECHO Results (as available) Date of last Echo 10/10/17 Exam & Diagnostic Data Last 24 Hrs of Vital Signs/I&O Vital Signs Date Time Temp Pulse Resp B/P B/P Pulse O2 O2 Flow FiO2 Mean Ox Delivery Rate 03/05 0353 76 03/05 0350 94 CPAP Room Air 03/05 0235 71 110/60 03/05 0018 75 95 03/05 0000 94 CPAP Room Air 03/05 0000 97.0 73 18 110/60 94 CPAP Room Air 03/04 2213 77 93 03/04 1600 96 Room Air 30% 03/04 1600 97.8 72 72 87/50 96 Room Air 03/04 1200 95 Room Air 03/04 1100 59 88/47 03/04 0800 95 Room Air 03/04 0800 97.4 68 27 78/49 95 Room Air Intake & Output / 08 03/05 0000 03/04 1600 Intake Total 336 627 683 Output Total 0 Balance 336 627 683 Intake, IV 336 337 323 Intake, Oral 290 360 Number 0 Bowel Movements Output, Urine 0 Patient 210 lb Weight Weight Bed scale Measurement Method Vital Signs Date Time Temp Pulse Resp B/P B/P Pulse O2 O2 Flow FiO2 Mean Ox Delivery Rate 03/05 0353 76 03/05 0350 94 CPAP Room Air 03/05 0235 71 110/60 03/05 0018 75 95 03/05 0000 94 CPAP Room Air 03/05 0000 97.0 73 18 110/60 94 CPAP Room Air 03/04 2213 77 93 03/04 1600 96 Room Air 30% 03/04 1600 97.8 72 72 87/50 96 Room Air 03/04 1200 95 Room Air 03/04 1100 59 88/47 03/04 0800 95 Room Air 03/04 0800 97.4 68 27 78/49 95 Room Air Intake & Output /05 0800 03/05 0000 03/04 1600 Intake Total 336 627 683 Output Total 0 Balance 336 627 683 Intake, IV 336 337 323 Intake, Oral 290 360 Number 0 Bowel Movements Output, Urine 0 Patient 210 lb Weight Weight Bed scale Measurement Method Physical Exam General Appearance: alert, awake, comfortable Head: normal appearance Neck: normal inspection Respiratory: normal breath sounds Cardiovascular: regular rate/rhythm Gastrointestinal: normal bowel sounds, soft Extremities: right above knee amputation Labs/Brendan Results: Laboratory Tests 01/09 01/08 0300 1530 Chemistry Sodium (137 - 145 mmol/L) 133 L Potassium (3.5 - 5.1 mmol/L) 4.7 Chloride (98 - 107 mmol/L) 97 L Carbon Dioxide (22 - 30 mmol/L) 24 Anion Gap (5 - 16) 13 BUN (9 - 20 mg/dL) 48 H Creatinine (0.7 - 1.2 mg/dL) 6.7 *H Estimated GFR (>60 ml/min) 9 L Glucose (65 - 99 mg/dL) 174 H Calcium (8.4 - 10.2 mg/dL) 8.4 Phosphorus (2.5 - 4.5 mg/dL) 5.0 H Magnesium (1.6 - 2.3 mg/dL) 2.1 Total Bilirubin (0.2 - 1.3 mg/dL) 0.3 AST (17 - 59 U/L) 9 L ALT (21 - 72 U/L) 17 L Albumin (3.5 - 5.0 g/dL) 2.8 L Cortisol AM Sample (4.46 - 22.7 ug/dL) 56.0 H Coagulation APTT (25 - 37 SEC) 60 H 61 H Hematology CBC w Diff MAN DIFF ORDERED WBC (4.8 - 10.8 /CUMM) 7.5 RBC (4.70 - 6.10 /CUMM) 2.63 L Hgb (14.0 - 18.0 G/DL) 8.0 L Hct (42 - 52 %) 24.6 L MCV (80.0 - 94.0 FL) 93.6 MCH (27.0 - 31.0 PG) 30.4 MCHC (33.0 - 37.0 G/DL) 32.5 L RDW (11.5 - 14.5 %) 16.6 H Plt Count (130 - 400 /CUMM) 150 MPV (7.4 - 10.4 FL) 9.1 Gran % (42.2 - 75.2 %) 92.8 H Lymphocytes % (20.5 - 51.1 %) 6.3 L Monocytes % (1.7 - 9.3 %) 0.7 L Eosinophils % (0 - 5 %) 0.1 Basophils % (0.0 - 2.0 %) 0.1 Absolute Granulocytes (1.4 - 6.5 /CUMM) 7.0 H Segmented Neutrophils (42.2 - 75.2 %) 92 H Band Neutrophils (0.0 - 5.0 %) 1 Absolute Lymphocytes (1.2 - 3.4 /CUMM) 0.5 L Lymphocytes (20.5 - 51.1 %) 5 L Monocytes (1.7 - 9.3 %) 1 L Absolute Monocytes (0.10 - 0.60 /CUMM) 0.1 Eosinophils (0 - 5.0 %) 1 Absolute Eosinophils (0.0 - 0.7 /CUMM) 0 Absolute Basophils (0.0 - 0.2 /CUMM) 0 Platelet Estimate (ADEQUATE) ADEQUATE Poikilocytosis 1+ Basophilic Stippling RARE Anisocytosis 1+ Elliptocytes 1+ Assessment/Plan Assessment/Plan This patient with with a history of diabetes type 2 coronary artery disease, end -stage renal disease on hemodialysis, and evidence of methicillin sensitive bacteremia with staph aureus and a possible vegetation on the mitral valve has had episodic hypotension requiring pressors. A serum cortisol done at the time of the patient's blood pressure was low was only 7.6. The findings are consistent with relative adrenal insufficiency. This may be in part to the effects of narcotic pain medicine on the pituitary adrenal axis. I would recommend that we treat the patient Solu-Cortef 100 mg IV every 8 hours for the next 24 hours and then reduce the dose to 50 mg IV every 8 hours. Hopefully the patient's pressors will be able to be tapered now that he is on steroid therapy. Consult Acknowledgment - Thank you for your consult request.
[2018-01-09 08:00] VITALS: BP 100/56
--- NOTE | 2018-01-09 08:12 | Transfer of Care Summary ---
Hospital Course Course Hospital Course: Reason for ICU admission Septic shock HPI The patient is a 57-year-old gentleman with past medical history of CAD recent PCI withdrug-eluting stent in [facility] in September 2017, s/p quadriple CABG (2006) , history of T2DM, ESRD due to diabetic nephropathy on MWF dialysis, right BKA s/p a nonunion open ankle fracture which was complicated by MSSA right septic knee requiring arthroscopic drainage and I&D; treated with 4 week course of IV Cefazolin (2015), history of gastric sleeve, obstructive sleep apnea on CPAP at night, and chronic anemia. Pt has pertinent recent admissions to for r. knee MSSA septic arthritis, and recent admission to ICU on 10/23 for MSSA osteomyelitis, bacteremia and mitral valve endocarditis. He had I&D of his right BKA stump abscess and then sent to [facility] for six-week course of Cefazolin (last dose on 11/23/2016). He was d/c from [facility] about 3 weeks ago. Previous admission was also pertinent for C. Difficile diarrhea with ten-day course of Flagyl. He presented to [facility] on with complaint of malaise, lethargy and hypotension noted during routine dialysis appointment. Interval events -In ED pt was found to be febrile, tachycardic, and hypotensive with inappropriate response to 3 L IVF. Pt was diagnosed with septic shock due to unknown source and started on broad spectrum abx and pressors thru R. femoral central line (placed on 12/26) He was intermittently in and out of afib and was started on Heparin drip. BCX 2 turned out to be positive for MSSA. Initially pt was started on Ceftaz and Vanco, then narrowed to Vanco and was later changed to 2g Cefazolin after dialysis -The patient had type II SD likely secondary to demand supply mismatch with troponins peaking at 0.23 on 12/27 -He then underwent IR guided Right BKA stump aspiration on 12/28 secondary to stump imaging positive for aspirable collection, which remains negative to date. -R. femoral TLC was removed secondary to MSSA bacteremia 2, pt underwent placement of RIJ TLC On 12/30 for continous need for pressors for blood pressure maintainance. Patient was weaned off pressors and transferred to telemetry floor. -The patient underwent a YULIA (on 01/02) which showed severe mitral regurgitation with possible posterior leaflet perforation. Cardiology recommends mitral valve replacement but that'll be an outpatient procedure and patient needs to be hemodynamically stable for that. (He also underwent right-sided above-knee amputation for presumed right-sided BKA stump infection as likely source of staph aureus sepsis. He also received 1 unit of PRBCs post procedure. OR cultures remain negative to date -Post procedure patient was transferred to ICU for requirement of pressors to maintain blood pressure. To wean of pressors (levophed) the map was adjusted from 55-60 because patient normally runs on the low side with systolic of 90s. Ever since we have been titrating Levphed according to the map. Patient had come off pressors several times but MAP droped below 50 and patient needed to be restarted on Levophed -Patient also had an episode of transient transaminitis (01/03) likely reactive secondary to postop, which resolved without any intervention. -During this ICU stay (01/04) patient had an episode of leukocytosis with left shift for which he was given 1 dose of vancomycin, secondary to this event, right IJ was removed and patient underwent left IJ TLC (pro-line) placement via IR (on 01/05) BCX2 second set and third set remain negative to date -He dropped his H/H to 6.8/20 (on 11/09) secondary to bleeding from the amputation site, he received 1 unit of PRBCs and his H&H has been fluctuating likely secondary to volume. -Patient had an episode of desaturation to 80s prior to the dialysis (on 01/11) and oxygen requirement was increased up to 6L NC, previously his respiratory status has been stable, there have been no acute development other than requiring CPAP overnight. Chest x-ray post dialysis showed [id number] pleural effusion and bilateral atelectasis stable as to the previous x-ray. Chest x-ray did not show any evidence of pneumonia. PE could be one of the etiologies for acute desaturation but patient is being anticoagulated with IV heparin drip for atrial fibrillation. Repeat CXR post dialysis was positive for pulmonary congestion. -Adrenal insufficiency was explored as a cause of patient's continued hypotension with cortisol level of 7.8 and patient was started on Solu-Cortef on 01/10. -On 01/11 patient pressor was changed to dopamine starting at the rate of 5 MCG to wean him off Levophed. Dopamine may be more beneficial for the patient in setting of mitral regurgitation as it will not increase afterload as much as levophed -We decided to wean patient off pressors completely (01/12) and dopamine was discontinued with the map goal of 50. 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 CT scan head was negative for stroke patient was evaluated by neurology. We ordered a CTA for further evaluation which was negative for any emboli, mycotic aneurysm. -The patient has been started on Coumadin 01/15 and is being bridged with heparin *Patient is Tele Hold as of now Mechanical ventilation No NIPPV CPAP at night Antibiotic plan Cefazolin Things to be followed up My differentials for MSSA source of bacteremia include; right BKA stump infection for which patient underwent R AKA, though OR cultures remain negative to date.;Relapse of endocarditis though YULIA negative for vegetation. 10% of the patients of endocarditis can present with diskitis, ruled out with CT scan (IV contrast) of spine was done but was negative Continued hypotension requiring pressors, differentials are septic shock, cardiogenic shock and adrenal insufficiency patient is on 50 mg hydrocortisone every 8 hours. He does not appear to be in septic shock, if he is, this will be prolonged sepsis which is unusal. Cardiogenic shock is a possibility in setting of mitral valve regurgitation because of prosterior leaflet perforation but unlikely. There is a question of cortisol deficiency with cortisone level of 7.8. He is currently on Hydrocortisone 50mg IV q8 * Continue CPAP * Continue cefazolin for total of 6 wks (19 days since negative blood cultures) * Continue to monitor her INR, and dose warfarin accordingly, patient is being bridged with heparin-- for atrial fibrillation * Continue to monitor H/H * Change hydrocortisone 50 mg IV Q8 to every 12 from tomorrow * Continue Aspirin, Clopidogrel, statin * Continue Colace MiraLAX and docusate * Continue dialysis on schedule * Patient is going to need mitral valve replacement confirmed with cardiology inpatient versus outpatient * Use 12.5 g of 25% IV albumin Q30 PRN for SBP <100 for BP maintaince during dialysis * Continue Epojen, Sensipar and Sevelamer * Follow-up dental caries seen on CT with head and neck surgery, will need to be addressed before mitral valve replacement Nutrition renal dialysis diet DVT prophylaxis Warfarin being bridged with IV heparin CODE STATUS full code Assessment/Plan: see above
--- NOTE | 2018-01-09 09:52 | PN- Infect Dx ---
Subjective Subjective: Afebrile on steroids. His blood pressure remains low, requiring Levophed. He notes some discomfort in the right leg. Objective Last 24 Hrs of Vital Signs/I&O Vital Signs Date Time Temp Pulse Resp B/P B/P Pulse O2 O2 Flow FiO2 Mean Ox Delivery Rate 01/09 08 96.7 72 20 100/56 94 Room Air 03/ 0353 76 03/05 0350 94 CPAP Room Air / 0235 71 110/60 03/05 0018 75 95 03/ 0000 94 CPAP Room Air 03/ 0000 97.0 73 18 110/60 94 CPAP Room Air 01/08 2213 77 93 / 1600 96 Room Air 30% / 1600 97.8 72 72 87/50 96 Room Air / 1200 95 Room Air 01/08 1100 59 88/47 Intake & Output 01/09 1600 01/09 0800 03/ 0000 Intake Total 336 627 Output Total Balance 336 627 Intake, IV 336 337 Intake, Oral 290 Physical Exam Other Physical Findings: He appears comfortable in no acute distress Lungs left IJ triple-lumen catheter with no inflammation at the site Heart regular rhythm with no murmur Extremities right leg dressing intact Results Last 24 Hours of Lab Results: Laboratory Tests 01/09 01/08 0300 1530 Chemistry Sodium (137 - 145 mmol/L) 133 L Potassium (3.5 - 5.1 mmol/L) 4.7 Chloride (98 - 107 mmol/L) 97 L Carbon Dioxide (22 - 30 mmol/L) 24 Anion Gap (5 - 16) 13 BUN (9 - 20 mg/dL) 48 H Creatinine (0.7 - 1.2 mg/dL) 6.7 *H Estimated GFR (>60 ml/min) 9 L Glucose (65 - 99 mg/dL) 174 H Calcium (8.4 - 10.2 mg/dL) 8.4 Phosphorus (2.5 - 4.5 mg/dL) 5.0 H Magnesium (1.6 - 2.3 mg/dL) 2.1 Total Bilirubin (0.2 - 1.3 mg/dL) 0.3 AST (17 - 59 U/L) 9 L ALT (21 - 72 U/L) 17 L Albumin (3.5 - 5.0 g/dL) 2.8 L Cortisol AM Sample (4.46 - 22.7 ug/dL) 56.0 H Coagulation APTT (25 - 37 SEC) 60 H 61 H Hematology CBC w Diff MAN DIFF ORDERED WBC (4.8 - 10.8 /CUMM) 7.5 RBC (4.70 - 6.10 /CUMM) 2.63 L Hgb (14.0 - 18.0 G/DL) 8.0 L Hct (42 - 52 %) 24.6 L MCV (80.0 - 94.0 FL) 93.6 MCH (27.0 - 31.0 PG) 30.4 MCHC (33.0 - 37.0 G/DL) 32.5 L RDW (11.5 - 14.5 %) 16.6 H Plt Count (130 - 400 /CUMM) 150 MPV (7.4 - 10.4 FL) 9.1 Gran % (42.2 - 75.2 %) 92.8 H Lymphocytes % (20.5 - 51.1 %) 6.3 L Monocytes % (1.7 - 9.3 %) 0.7 L Eosinophils % (0 - 5 %) 0.1 Basophils % (0.0 - 2.0 %) 0.1 Absolute Granulocytes (1.4 - 6.5 /CUMM) 7.0 H Segmented Neutrophils (42.2 - 75.2 %) 92 H Band Neutrophils (0.0 - 5.0 %) 1 Absolute Lymphocytes (1.2 - 3.4 /CUMM) 0.5 L Lymphocytes (20.5 - 51.1 %) 5 L Monocytes (1.7 - 9.3 %) 1 L Absolute Monocytes (0.10 - 0.60 /CUMM) 0.1 Eosinophils (0 - 5.0 %) 1 Absolute Eosinophils (0.0 - 0.7 /CUMM) 0 Absolute Basophils (0.0 - 0.2 /CUMM) 0 Platelet Estimate (ADEQUATE) ADEQUATE Poikilocytosis 1+ Basophilic Stippling RARE Anisocytosis 1+ Elliptocytes 1+ Last 24 Hours of Brendan Results: No recent cultures Assessment/Plan ID Impression: Stable, though remains borderline hypotensive, requiring pressors, now 1 week status post right AKA for presumed infected right BKA stump, though the pathology from his surgery does not suggest any infection. He remains afebrile with a normal white blood cell count on Cefazolin Day 14 of treatment for Staph aureus sepsis, now 12 days since negative blood cultures, with his YULIA negative for any vegetation but with evidence of a perforated mitral valve leaflet, with Cardiology suggesting eventual need for valve replacement. Suggestion: 1. Remove left IJ once he is off pressors 2. Will review pathology further regarding any evidence of infection 3. Await decision regarding eventual mitral valve replacement per Cardiology 4. Continue Cefazolin/will discuss duration with Cardiology based on above
[2018-01-09 11:39] LABS: PTT 56 SEC (25-37)
--- NOTE | 2018-01-09 11:45 | PN- Cardiology ---
Subjective Subjective: The patient is awake, alert The events of the last 24 hours as well as telemetry were reviewed. Review of Systems: The review of systems is negative for chest pains, palpitations nor lightheadedness. The remainder of the 14 point review of systems is noncontributory with the exception of above. Objective Vital Signs and I&Os Vital Signs Date Time Temp Pulse Resp B/P B/P Pulse O2 O2 Flow FiO2 Mean Ox Delivery Rate 01/09 0800 96.7 72 20 100/56 94 Room Air 03/ 0353 76 03/ 0350 94 CPAP Room Air 03/ 0235 71 110/60 03/05 0018 75 95 03/ 0000 94 CPAP Room Air 03/ 0000 97.0 73 18 110/60 94 CPAP Room Air / 2213 77 93 / 1600 96 Room Air 30% / 1600 97.8 72 72 87/50 96 Room Air / 1200 95 Room Air Intake & Output / 1600 / 0800 /05 0000 / 1600 / 0800 03/ 0000 Intake Total 336 627 683 296 466 Output Total 0 Balance 336 627 683 296 466 Intake, IV 336 337 323 296 296 Intake, Oral 290 360 170 Number 0 Bowel Movements Output, Urine 0 Patient 210 lb Weight Weight Bed scale Measurement Method Physical Exam: General: Nontoxic, no apparent distress. HEENT: Sclera and conjunctiva within normal limits, without xanthelasmas. Neck: Carotids 2+ without bruits. Respiratory: Clear to auscultation, air movement is good, without accessory respiratory muscle use. Heart: Regular rate and rhythm, 2/6 systolic ejection murmur at left sternal border, without JVD. Abdomen: Soft, nontender, no masses, normoactive bowel sounds. Extremities: Without clubbing, cyanosis, without edema, status post left AKA. Neuro: Nonfocal exam, strength, 5 out of 5 Skin: Within normal limits without lesions. Psych: Mood and affect: Normal Current Medications: Current Medications Sig/Bobo Start time Last Medication Dose Route Stop Time Status Admin Albumin Human 12.5 GM .Q30MIN PRN 01/02 1000 AC 01/04 IV 1058 Aspirin Buffered 81 MG DAILY 01/03 1000 AC 01/09 PO 0958 Atorvastatin Calcium 10 MG 1700 01/05 1700 AC 01/08 PO 1853 Bisacodyl 5 MG DAILY 01/06 1345 AC 01/09 PO 0957 Cinacalcet 30 MG 1700 01/02 1700 AC 01/08 PO 1605 Clopidogrel Bisulfate 75 MG 01/05 AC 01/08 PO 1943 Cyanocobalamin 1,000 MCG DAILY 01/03 1000 AC 01/09 PO 0959 Docusate Sodium 100 MG DAILY 01/03 1000 AC 01/09 PO 0958 Epoetin Jaron 4,000 UNIT MoWeFr PRN 01/06 1000 AC IV Epoetin Jaron 3,000 UNIT MoWeFr PRN 01/06 1000 AC IV Heparin Sodium 25,000 UNIT Q24H 01/06 1515 AC 01/08 (Porcine) IV 1611 Sodium Chloride 500 ML Hydrocortisone 50 MG Q8 01/10 0600 AC Sodium Succinate IV Hydrocortisone 100 MG Q8 01/08 1404 AC 01/09 Sodium Succinate IV 01/10 0000 0629 Lidocaine/Prilocaine 1 GAVI DAILY PRN 01/02 1645 AC TOP Morphine Sulfate 2 MG Q4P PRN 01/02 1430 AC 01/09 IV 0820 Multivitamins 1 TAB DAILY 01/03 1000 AC 01/09 PO 0959 Norepinephrine 4 MG Q16H 01/04 1000 AC 01/09 Sodium Chloride 250 ML IV 0235 Nystatin 5 ML 4 TIMES/DAY 01/06 1800 AC 01/09 PO 01/09 1401 0959 Polyethylene Glycol 17 GM DAILY 01/05 1349 AC 01/09 PO 0959 Senna 187 MG AT BEDTIME 01/05 2200 AC 01/08 PO 2150 Sevelamer Carbonate 2,400 MG WM 01/02 1700 AC 01/09 PO 0817 Results Last 48 Hrs of Labs/Mics: Laboratory Tests 01/09/18 1032: APTT Pending 01/09/18 0300: Anion Gap 13, Estimated GFR 9 L, Glucose 174 H, Calcium 8.4, Phosphorus 5.0 H , Magnesium 2.1, Total Bilirubin 0.3, AST 9 L, ALT 17 L, Albumin 2.8 L, Cortisol AM Sample 56.0 H, APTT 60 H, CBC w Diff MAN DIFF ORDERED, RBC 2.63 L , MCV 93.6, MCH 30.4, MCHC 32.5 L, RDW 16.6 H, MPV 9.1, Gran % 92.8 H, Lymphocytes % 6.3 L, Monocytes % 0.7 L, Eosinophils % 0.1, Basophils % 0.1, Absolute Granulocytes 7.0 H, Segmented Neutrophils 92 H, Band Neutrophils 1, Absolute Lymphocytes 0.5 L, Lymphocytes 5 L, Monocytes 1 L, Absolute Monocytes 0.1, Eosinophils 1, Absolute Eosinophils 0, Absolute Basophils 0, Platelet Estimate ADEQUATE, Poikilocytosis 1+, Basophilic Stippling RARE, Anisocytosis 1+, Elliptocytes 1+ 01/08/18 1530: APTT 61 H 01/08/18 0315: Anion Gap 10, Estimated GFR 11 L, Glucose 83, Calcium 8.0 L, Phosphorus 3.6, Magnesium 2.1, Total Bilirubin 0.5, AST 15 L, ALT 19 L, Albumin 2.6 L, Cortisol AM Sample 7.8, APTT 66 H, CBC w Diff NO MAN DIFF REQ, RBC 2.50 L, MCV 94.6 H, MCH 30.2, MCHC 31.9 L, RDW 16.2 H, MPV 9.1, Gran % 70.6, Lymphocytes % 22.4, Monocytes % 4.5, Eosinophils % 2.3, Basophils % 0.2, Absolute Granulocytes 4.2, Absolute Lymphocytes 1.3, Absolute Monocytes 0.3, Absolute Eosinophils 0.1, Absolute Basophils 0 01/07/18 1500: APTT 73 H Assessment/Plan Assessment/Plan 1. Coronary disease by history status post coronary bypass surgery 2006 with complex PCI to the left main into the circumflex September 2017 with normal LV function 2. Hx of Hypertension 3. Peripheral arterial disease status post prior amputation now S/P right AKA 4. End-stage renal disease on dialysis 5. 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 Repeat YULIA to 01/02/18 was negative for vegetations; however, with severe mitral regurgitation and possible perforation 6. Diabetes 7. Fever and chills with hypotension most likely secondary to sepsis. 8. Elevated troponins, minimal, not due to ACS 9. Intermittent atrial fibrillation possibly due to sepsis Coronary artery disease: The patient has known coronary artery disease, and a stable in regards to the same. He will continue his current medication regimen. A beta debbi will be initiated if able to tolerate from a blood pressure standpoint, once pressors are discontinued. Bacteremia: A YULIA demonstrated no vegetations; however, likely valvular perforation of the posterior mitral valve leaflet and moderate to severe regurgitation. He will likely require surgical intervention of his mitral valve. This will be further evaluated to be performed as an outpatient. He will continue a course of antibiotics as per ID. Atrial fibrillation: The patient has atrial fibrillation. Given the results of the YULIA demonstrating moderate to severe regurgitation, this is a likely etiology. Will require anticoagulation post surgery and further consideration for valvular repair. Currently he is not anticoagulated secondary to anemia as well as use of dual antiplatelet therapy Continue telemetry? Yes
--- NOTE | 2018-01-09 12:00 | PN- Nephrology ---
Assessment/Plan Nephrology Assessment: ESRD - Routine HD today. Total body volume expanded with severe MR demonstrated on YULIA - fluid removal today as tolerated. Anemia - Epogen increased from 5000U TIW (outpatient dose) to 7000U TIW. MSSA bacteremia - Cultures neg. CT C/A/P unrevealing of source. ID following - remains on abx - likely to just complete 4-6 week course. Suggestion: -HD today - 2-3L UF as tolerated -Epogen 7000U TIW Please call [phone] with ?'s Subjective Subjective: Pt seen and examined on dialysis Remains on pressors No SOB No additional complaints Objective Vital Signs and I&Os Vital Signs Date Time Temp Pulse Resp B/P B/P Pulse O2 O2 Flow FiO2 Mean Ox Delivery Rate 01/09 0800 96.7 72 20 100/56 94 Room Air 03/ 0353 76 03/ 0350 94 CPAP Room Air / 0235 71 110/60 03/05 0018 75 95 03/05 0000 94 CPAP Room Air 03/05 0000 97.0 73 18 110/60 94 CPAP Room Air / 2213 77 93 / 1600 96 Room Air 30% / 1600 97.8 72 72 87/50 96 Room Air 03/04 1200 95 Room Air Intake & Output / 1600 /05 0400 / 1600 /04 0400 01/07 1600 /03 0400 Intake Total 336 627 979 466 817 543 Output Total 0 0 Balance 336 627 979 466 817 543 Intake, IV 336 337 619 296 577 193 Intake, Oral 290 360 170 240 350 Number 0 1 1 Bowel Movements Output, Urine 0 0 Patient 210 lb 206 lb Weight Weight Bed scale Bed scale Measurement Method Physical Exam: Gen - OK appearing HEENT - supple CV - RRR, no m/r/g Chest - decreased BS at bases Abd - soft, NTND Ext - +edema, s/p RLE amputation; LLA AVF +thrill/+bruit Neuro - AOX3, grossly nonfocal Current Medications: Current Medications Sig/Bobo Start time Last Medication Dose Route Stop Time Status Admin Albumin Human 12.5 GM .Q30MIN PRN 01/02 1000 AC 01/04 IV 1058 Aspirin Buffered 81 MG DAILY 01/03 1000 AC 01/09 PO 0958 Atorvastatin Calcium 10 MG 1700 01/05 1700 AC 01/08 PO 1853 Bisacodyl 5 MG DAILY 01/06 1345 AC 01/09 PO 0957 Cinacalcet 30 MG 01/02 1700 AC 01/08 PO 1605 Clopidogrel Bisulfate 75 MG 01/05 AC 01/08 PO 1943 Cyanocobalamin 1,000 MCG DAILY 01/03 1000 AC 01/09 PO 0959 Docusate Sodium 100 MG DAILY 01/03 1000 AC 01/09 PO 0958 Epoetin Jaron 4,000 UNIT MoWeFr PRN 01/06 1000 AC IV Epoetin Jaron 3,000 UNIT MoWeFr PRN 01/06 1000 AC IV Heparin Sodium 25,000 UNIT Q24H 01/06 1515 AC 01/08 (Porcine) IV 1611 Sodium Chloride 500 ML Hydrocortisone 50 MG Q8 01/10 0600 AC Sodium Succinate IV Hydrocortisone 100 MG Q8 01/08 1404 AC 01/09 Sodium Succinate IV 01/10 0000 0629 Lidocaine/Prilocaine 1 GAVI DAILY PRN 01/02 1645 AC TOP Morphine Sulfate 2 MG Q4P PRN 01/02 1430 AC 01/09 IV 0820 Multivitamins 1 TAB DAILY 01/03 1000 AC 01/09 PO 0959 Norepinephrine 4 MG Q16H 01/04 1000 AC 01/09 Sodium Chloride 250 ML IV 0235 Nystatin 5 ML 4 TIMES/DAY 01/06 1800 AC 01/09 PO 01/09 1401 0959 Polyethylene Glycol 17 GM DAILY 01/05 1349 AC 01/09 PO 0959 Senna 187 MG AT BEDTIME 01/05 2200 AC 01/08 PO 2150 Sevelamer Carbonate 2,400 MG WM 01/02 1700 AC 01/09 PO 0817 Results Pertinent Lab Results: Laboratory Tests 01/09 01/09 01/08 1032 0300 1530 Chemistry Sodium (137 - 145 mmol/L) 133 L Potassium (3.5 - 5.1 mmol/L) 4.7 Chloride (98 - 107 mmol/L) 97 L Carbon Dioxide (22 - 30 mmol/L) 24 Anion Gap (5 - 16) 13 BUN (9 - 20 mg/dL) 48 H Creatinine (0.7 - 1.2 mg/dL) 6.7 *H Estimated GFR (>60 ml/min) 9 L Glucose (65 - 99 mg/dL) 174 H Calcium (8.4 - 10.2 mg/dL) 8.4 Phosphorus (2.5 - 4.5 mg/dL) 5.0 H Magnesium (1.6 - 2.3 mg/dL) 2.1 Total Bilirubin (0.2 - 1.3 mg/dL) 0.3 AST (17 - 59 U/L) 9 L ALT (21 - 72 U/L) 17 L Albumin (3.5 - 5.0 g/dL) 2.8 L Cortisol AM Sample (4.46 - 22.7 ug/dL) 56.0 H Coagulation APTT (25 - 37 SEC) Pending 60 H 61 H Hematology CBC w Diff MAN DIFF ORDERED WBC (4.8 - 10.8 /CUMM) 7.5 RBC (4.70 - 6.10 /CUMM) 2.63 L Hgb (14.0 - 18.0 G/DL) 8.0 L Hct (42 - 52 %) 24.6 L MCV (80.0 - 94.0 FL) 93.6 MCH (27.0 - 31.0 PG) 30.4 MCHC (33.0 - 37.0 G/DL) 32.5 L RDW (11.5 - 14.5 %) 16.6 H Plt Count (130 - 400 /CUMM) 150 MPV (7.4 - 10.4 FL) 9.1 Gran % (42.2 - 75.2 %) 92.8 H Lymphocytes % (20.5 - 51.1 %) 6.3 L Monocytes % (1.7 - 9.3 %) 0.7 L Eosinophils % (0 - 5 %) 0.1 Basophils % (0.0 - 2.0 %) 0.1 Absolute Granulocytes (1.4 - 6.5 /CUMM) 7.0 H Segmented Neutrophils (42.2 - 75.2 %) 92 H Band Neutrophils (0.0 - 5.0 %) 1 Absolute Lymphocytes (1.2 - 3.4 /CUMM) 0.5 L Lymphocytes (20.5 - 51.1 %) 5 L Monocytes (1.7 - 9.3 %) 1 L Absolute Monocytes (0.10 - 0.60 /CUMM) 0.1 Eosinophils (0 - 5.0 %) 1 Absolute Eosinophils (0.0 - 0.7 /CUMM) 0 Absolute Basophils (0.0 - 0.2 /CUMM) 0 Platelet Estimate (ADEQUATE) ADEQUATE Poikilocytosis 1+ Basophilic Stippling RARE Anisocytosis 1+ Elliptocytes 1+ 01/08 01/07 01/07 0315 1500 0645 Chemistry Sodium (137 - 145 mmol/L) 134 L Potassium (3.5 - 5.1 mmol/L) 4.0 Chloride (98 - 107 mmol/L) 97 L Carbon Dioxide (22 - 30 mmol/L) 27 Anion Gap (5 - 16) 10 BUN (9 - 20 mg/dL) 37 H Creatinine (0.7 - 1.2 mg/dL) 5.4 *H Estimated GFR (>60 ml/min) 11 L Glucose (65 - 99 mg/dL) 83 Calcium (8.4 - 10.2 mg/dL) 8.0 L Phosphorus (2.5 - 4.5 mg/dL) 3.6 Magnesium (1.6 - 2.3 mg/dL) 2.1 Total Bilirubin (0.2 - 1.3 mg/dL) 0.5 AST (17 - 59 U/L) 15 L ALT (21 - 72 U/L) 19 L Albumin (3.5 - 5.0 g/dL) 2.6 L Cortisol AM Sample (4.46 - 22.7 ug/dL) 7.8 Coagulation APTT (25 - 37 SEC) 66 H 73 H 46 H Hematology CBC w Diff NO MAN DIFF REQ WBC (4.8 - 10.8 /CUMM) 6.0 RBC (4.70 - 6.10 /CUMM) 2.50 L Hgb (14.0 - 18.0 G/DL) 7.5 L Hct (42 - 52 %) 23.6 L MCV (80.0 - 94.0 FL) 94.6 H MCH (27.0 - 31.0 PG) 30.2 MCHC (33.0 - 37.0 G/DL) 31.9 L RDW (11.5 - 14.5 %) 16.2 H Plt Count (130 - 400 /CUMM) 126 L MPV (7.4 - 10.4 FL) 9.1 Gran % (42.2 - 75.2 %) 70.6 Lymphocytes % (20.5 - 51.1 %) 22.4 Monocytes % (1.7 - 9.3 %) 4.5 Eosinophils % (0 - 5 %) 2.3 Basophils % (0.0 - 2.0 %) 0.2 Absolute Granulocytes (1.4 - 6.5 /CUMM) 4.2 Absolute Lymphocytes (1.2 - 3.4 /CUMM) 1.3 Absolute Monocytes (0.10 - 0.60 /CUMM) 0.3 Absolute Eosinophils (0.0 - 0.7 /CUMM) 0.1 Absolute Basophils (0.0 - 0.2 /CUMM) 0 03/03 / 0445 2315 Chemistry Sodium (137 - 145 mmol/L) 138 Potassium (3.5 - 5.1 mmol/L) 4.0 Chloride (98 - 107 mmol/L) 101 Carbon Dioxide (22 - 30 mmol/L) 28 Anion Gap (5 - 16) 9 BUN (9 - 20 mg/dL) 27 H Creatinine (0.7 - 1.2 mg/dL) 4.0 H Estimated GFR (>60 ml/min) 16 L Glucose (65 - 99 mg/dL) 90 Calcium (8.4 - 10.2 mg/dL) 8.0 L Phosphorus (2.5 - 4.5 mg/dL) 3.3 Magnesium (1.6 - 2.3 mg/dL) 2.1 Total Bilirubin (0.2 - 1.3 mg/dL) 0.4 AST (17 - 59 U/L) 14 L ALT (21 - 72 U/L) 21 Albumin (3.5 - 5.0 g/dL) 2.7 L Coagulation APTT (25 - 37 SEC) 40 H Hematology CBC w Diff NO MAN DIFF REQ WBC (4.8 - 10.8 /CUMM) 7.5 RBC (4.70 - 6.10 /CUMM) 2.67 L Hgb (14.0 - 18.0 G/DL) 8.2 L Hct (42 - 52 %) 25.0 L MCV (80.0 - 94.0 FL) 93.8 MCH (27.0 - 31.0 PG) 30.7 MCHC (33.0 - 37.0 G/DL) 32.8 L RDW (11.5 - 14.5 %) 16.5 H Plt Count (130 - 400 /CUMM) 150 MPV (7.4 - 10.4 FL) 9.1 Gran % (42.2 - 75.2 %) 76.4 H Lymphocytes % (20.5 - 51.1 %) 16.7 L Monocytes % (1.7 - 9.3 %) 4.9 Eosinophils % (0 - 5 %) 1.9 Basophils % (0.0 - 2.0 %) 0.1 Absolute Granulocytes (1.4 - 6.5 /CUMM) 5.8 Absolute Lymphocytes (1.2 - 3.4 /CUMM) 1.3 Absolute Monocytes (0.10 - 0.60 /CUMM) 0.4 Absolute Eosinophils (0.0 - 0.7 /CUMM) 0.1 Absolute Basophils (0.0 - 0.2 /CUMM) 0 / 2151 Hematology CBC w Diff NO MAN DIFF REQ WBC (4.8 - 10.8 /CUMM) 6.6 RBC (4.70 - 6.10 /CUMM) 2.61 L Hgb (14.0 - 18.0 G/DL) 8.0 L Hct (42 - 52 %) 24.4 L MCV (80.0 - 94.0 FL) 93.5 MCH (27.0 - 31.0 PG) 30.7 MCHC (33.0 - 37.0 G/DL) 32.8 L RDW (11.5 - 14.5 %) 16.3 H Plt Count (130 - 400 /CUMM) 122 L MPV (7.4 - 10.4 FL) 9.4 Gran % (42.2 - 75.2 %) 82.8 H Lymphocytes % (20.5 - 51.1 %) 11.6 L Monocytes % (1.7 - 9.3 %) 4.0 Eosinophils % (0 - 5 %) 1.5 Basophils % (0.0 - 2.0 %) 0.1 Absolute Granulocytes (1.4 - 6.5 /CUMM) 5.5 Absolute Lymphocytes (1.2 - 3.4 /CUMM) 0.8 L Absolute Monocytes (0.10 - 0.60 /CUMM) 0.3 Absolute Eosinophils (0.0 - 0.7 /CUMM) 0.1 Absolute Basophils (0.0 - 0.2 /CUMM) 0 Imaging/Other Studies: None new
[2018-01-09 16:00] VITALS: BP 118/68
[2018-01-09 19:00] LABS: PTT 80 SEC (25-37)
[2018-01-10] VITALS: BP 76/40
[2018-01-10 06:30] LABS: ABSOLUTE BASOPHIL COUNT 0 /CUMM (0.0-0.2); ABSOLUTE EOSINOPHIL COUNT 0 /CUMM (0.0-0.7); ABSOLUTE GRANULOCYTE CT 9.8 /CUMM (1.4-6.5); ABSOLUTE LYMPH COUNT 0.8 /CUMM (1.2-3.4); ABSOLUTE MONOCYTE COUNT 0.4 /CUMM (0.10-0.60); BASOPHIL % 0.3 % (0.0-2.0); EOSINOPHIL % 0 % (0-5); GRANULOCYTE % 89.1 % (42.2-75.2); HEMATOCRIT 26.2 % (42-52); MEAN CORPUSCULAR HGB 30.6 PG (27.0-31.0); MEAN CORPUSCULAR HGB CONC 32.6 G/DL (33.0-37.0); MEAN PLATELET VOLUME 9.2 FL (7.4-10.4); PLATELET COUNT 205 /CUMM (130-400); RBC DISTRIBUTION WIDTH 16.6 % (11.5-14.5); RED BLOOD CELL CT 2.78 /CUMM (4.70-6.10); WHITE BLOOD CELL COUNT 10.9 /CUMM (4.8-10.8)
[2018-01-10 06:42] LABS: PTT 91 SEC (25-37)
--- NOTE | 2018-01-10 07:29 | PN- Resident CRCU ---
Cricket MARTINEZ,Cathy 01/10/18 0728: Subjective HPI/CRCU Issues: Patient seen and examined. Sitting comfortably having breakfast. Offers no complaints. Tmax 98 heart rate ranging in 80s to 70s telemetry strips showing first-degree AV block Blood pressure ranging between 80s to 110s/50s to 60s satting 95% on room air -Patient has been started again on pressors Levophed currently running at 1 MCG -Heparin drip running, H/H stable, WBC 10.9 2/2 steriods most likely -Sodium 136, potassium 4.1, BUN 34, creatinine 4.4 -Fingersrticks 248,172,192 Objective Vital Signs & I&O Last 8 Hrs of Vitals and I&O: Vital Signs Date Time Temp Pulse Resp B/P B/P Pulse O2 O2 Flow FiO2 Mean Ox Delivery Rate 01/10 0800 98 Room Air / 0800 97.6 71 18 108/60 98 Room Air / 0537 67 99 / 0400 99 CPAP Room Air / 0229 67 97 / 0052 71 18 74/44 03/06 0019 66 99 03/06 0000 98 CPAP Room Air 03/ 0000 97.1 68 18 76/40 98 CPAP 03/ 2227 88 97 03/05 2000 97 Room Air 03/05 1600 97.1 80 22 118/68 98 Room Air Intake & Output / 1600 /06 0800 03/06 0000 Intake Total 466 924 Output Total Balance 466 924 Intake, IV 466 574 Intake, Oral 350 Exam General Appearance: no apparent distress Head: atraumatic, normal appearance Respiratory: normal breath sounds, chest non-tender Cardiovascular: regular rate/rhythm, murmur Gastrointestinal: normal bowel sounds, soft, non-tender Extremities: R aka Cranial Nerves: normal hearing, normal speech Skin: intact Current Medications: Current Medications Sig/Bobo Start time Last Medication Dose Route Stop Time Status Admin Albumin Human 12.5 GM .Q30MIN PRN 01/02 1000 AC 01/04 IV 1058 Aspirin Buffered 81 MG DAILY 01/03 1000 AC 01/10 PO 0912 Atorvastatin Calcium 10 MG 1700 01/05 1700 AC 03/ PO 1656 Bisacodyl 5 MG DAILY 01/06 1345 AC 01/10 PO 0914 Cefazolin Sodium 2 GM 01/11 1000 AC N/A 1 UNIT IV Cinacalcet 30 MG 0 01/02 1700 AC 01/09 PO 1656 Clopidogrel Bisulfate 75 MG 01/05 AC 01/09 PO 1950 Cyanocobalamin 1,000 MCG DAILY 01/03 1000 AC 01/10 PO 0912 Docusate Sodium 100 MG DAILY 01/03 1000 AC 01/10 PO 0912 Epoetin Jaron 4,000 UNIT MoWeFr PRN 01/06 1000 AC IV Epoetin Jaron 3,000 UNIT MoWeFr PRN 01/06 1000 AC IV Heparin Sodium 25,000 UNIT Q24H 01/10 0730 AC 01/10 (Porcine) IV 0911 Sodium Chloride 500 ML Heparin Sodium 25,000 UNIT Q24H 01/06 1515 DC 01/09 (Porcine) IV 202 Sodium Chloride 500 ML Hydrocortisone 50 MG Q8 01/10 0600 AC 01/10 Sodium Succinate IV 0553 Hydrocortisone 100 MG Q8 01/08 1404 DC 01/09 Sodium Succinate IV 01/10 0000 2216 Lidocaine/Prilocaine 1 GAVI DAILY PRN 01/02 1645 [facility] Morphine Sulfate 2 MG Q4P PRN 01/02 1430 AC 01/10 IV 0913 Multivitamins 1 TAB DAILY 01/03 1000 AC 01/09 PO 0959 Norepinephrine 4 MG Q16H 01/04 1000 AC 01/10 Sodium Chloride 250 ML IV 0052 Nystatin 5 ML 4 TIMES/DAY 01/06 1800 DC 01/06 PO 01/09 1401 1721 Polyethylene Glycol 17 GM DAILY 01/05 1349 AC 01/09 PO 0959 Senna 187 MG AT BEDTIME 01/05 2200 AC 01/09 PO 2215 Sevelamer Carbonate 2,400 MG WM 01/02 1700 AC 01/10 PO 1222 Impression/Plan Impression/Problem List Impression: Patient is a 57-year-old male with past medical history significant for peripheral arterial disease status post right [id number] amputation, end- stage renal disease on hemodialysis, coronary artery disease status post PCI and 1 drug-eluting stent in the left main circumflex artery (September 2017) and status post quadruple CABG (2006), diabetes, history of obstructive sleep apnea on CPAP at night, chronic anemia, most recent admission for septic arthritis and staph aureus sepsis, mitral valve endocarditis, osteomyelitis, history of C. difficile presented this admission after he was found to be hypotensive and tachycardic during dialysis with report of recent fatigue and dyspnea. #Respiratory Stable. Pt on RA and satting well. 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 postop day 5, OR culture negative so far -Relapse of his endocarditis,SAM negative for vegetations, perforation of mitral valve -Seeding from bacteremia diskitis in setting of IE CT scan spine with IV contarst negative, (suboptimal study and pt not a candidate for MRI with gadolinium) -Lingular consolidation with air bronchograms which favors atelectasis, although pneumonia could not excluded on imaging -Infected lines s/p R.femoral TLC removal 2/2 MSSA bacteremia x2, and right IJ removal 2/2 fever spike and leukocytosis * S/p Proline placement in L- IJ on 01/05 on Pressors Goal MAP 55 to 60 * Monitor fever and WBC curve afebrile without white count on steriods * BCx2 seconds set negative BCx2 thirds set negative * Continue cefazolin 2g daily after dialysis 4 to 6 weeks Day 13 days since negative BC Cardiovascular #Atrial fibrillation: Pt paroxysmal afib and is itnermittently going in and out of A.fib 2/2 sepsis versus mitral valve regurgitation.Pt was started on Heparin on 12/28/2017. Heparin drip has been held intermittently for surgery and drop in H&H 2/2 to postop bleeding from surgical site * CBC stabe, continue heparin drip #Hypotension: The patient has relative cortisol deficiency with cortisol level of 7.8. Patient remains on pressors via L-IJ Levophed @1mcg. He was off pressors on tuesday , Levophed restarted on tuesday with MAP of 50 * Hydrocortisone 50mg IV q8 tomorrow * MAP to 55- 60, Try to wean off pressor #CAD s/p stent and CABG : Chronic and stable * Continue Aspirin, Clopidogrel, statin #Mitral regurgitation and possible perforation on SAM Possible mitral valve surgery as an outpatient #Type II IN: Resolved. Peak troponin 0.23 on 12/27 Hemetology #Chronic Anemia H/H dropped from 9/ to 6.8/21 on 01/05. Hemoglobin 8 to 9 is his baseline. He recieved 1 unit pRBCS postop on 01/03 and 1 units on 01/05. Likely secondary to bleeding from surgical site.CT scan negative for retroperitoneal bleed * H/H stable, continue to monitor #Leukocytosis resolved Metabolic #Transaminitis -Resolved Likely reactive postop. Statin was initially held and later restarted Alimentary #Dialysis diet #Continue Colace MiraLAX and docusate Nephrology #ESRD: Next dialysis 01/11 * Use 12.5 g of 25% IV albumin Q30 PRN for SBP <100 for BP maintaince during dialysis * Continue Epojen, Sensipar and Sevelamer DVT prophylaxis IV Heparin Problem List: 1. A-fib Pain Ratin Tomorrow's Labs & Rationales: cbc icu bundle Plan DVT/Prophylaxis: Saul Toscano MD 01/10/18 0941: Attending MD Review Statement Attending Sign Off Attending Cosign Statement: I have: examined this patient, reviewed avalbl EMR data, personally reviewd images, discussd w/resident/PA/LOG DECK TENDER, discussed mgmt plan w/whit, discussed mgmt plan w/CM, discussed mgmt plan w/pt, agreed w/resident/PA/LOG DECK TENDER, amended to note. Other Findings: I, Saul Alvarenga M.D. have examined this patient, reviewed available EMR data, personally reviewed images, discussed with resident/PA/LOG DECK TENDER, discussed management plan with housestaff and nursing staff, discussed managment plan all of healthcare providers, discussed management plan with patient and/or family, agreed with resident/PA/LOG DECK TENDER. The past history and parts of the chart have been autopopulated. Impression 57 year old man * staph aureus sepsis * s/p aka * ESRD on HD * chronic anemia * a.fib on heparin gtt * s/p sam showing ? perforation in posterior leaflet without obvious clinical significance and will require surveillance * adrenal insufficiency Plan -endocrinology appreciated, started on solucortef 100mg iv q8h, will follow recs -s/p proline -f/u nephrology, ID, vascular surgery, cardiology -again febrile, pressors -monitor cbc -HD per renal -map goal 55-60 DVT prophylaxis at all times TTS 35 min
--- NOTE | 2018-01-10 07:38 | PN- Endocrinology ---
Assessment/Plan Endoscopy Assessment: The patient was found to have relative adrenal insufficiency. He was started on Solu-Cortef 100 mg IV every 8 hours. His blood pressure became somewhat low after dialysis yesterday but is somewhat better this morning. He is still on pressors however. The patient has been found to have severe mitral regurgitation on cardiac echo. Plan: Suggest reduce hydrocortisone to 50 mg IV every 8 hours today. Hopefully the patient can be weaned off pressors. Subjective Subjective: Feels improved Review of Systems Constitutional: Denies: chills, fever. Cardiovascular: Denies: chest pain. Respiratory: Denies: cough, short of breath. Gastrointestinal: Denies: abdominal pain, vomiting. Objective Last 24 Hrs of Vital Signs/I&O Vital Signs Date Time Temp Pulse Resp B/P B/P Pulse O2 O2 Flow FiO2 Mean Ox Delivery Rate 01/10 0537 67 99 03/06 0400 99 CPAP Room Air 03/06 0229 67 97 03/06 0052 71 18 74/44 03/06 0019 66 99 03/06 0000 98 CPAP Room Air 03/06 0000 97.1 68 18 76/40 98 CPAP 03/05 2227 88 97 03/05 1999 97 Room Air 03/05 1600 97.1 80 22 118/68 98 Room Air 03/05 0800 96.7 72 20 100/56 94 Room Air Intake & Output / 0800 03/06 0000 03/05 1600 Intake Total 466 924 848 Output Total 1999 Balance 466 924 -1152 Intake, IV 466 574 448 Intake, Oral 350 400 Number 0 Bowel Movements Output, 1999 Dialysate Vital Signs Date Time Temp Pulse Resp B/P B/P Pulse O2 O2 Flow FiO2 Mean Ox Delivery Rate 01/10 0537 67 99 03/06 0400 99 CPAP Room Air 03/06 0229 67 97 03/06 0052 71 18 74/44 03/06 0019 66 99 03/06 0000 98 CPAP Room Air 03/06 0000 97.1 68 18 76/40 98 CPAP 03/05 2227 88 97 03/05 1999 97 Room Air 03/05 1600 97.1 80 22 118/68 98 Room Air 03/05 0800 96.7 72 20 100/56 94 Room Air Intake & Output 03/06 0800 03/06 0000 03/05 1600 Intake Total 466 924 848 Output Total 1999 Balance 466 924 -1152 Intake, IV 466 574 448 Intake, Oral 350 400 Number 0 Bowel Movements Output, 2000 Dialysate Physical Exam General Appearance: alert, awake, comfortable Neck: normal inspection Respiratory: normal breath sounds Cardiovascular: regular rate/rhythm Extremities: right AKA Current Medications: Current Medications Sig/Bobo Start time Last Medication Dose Route Stop Time Status Admin Albumin Human 12.5 GM .Q30MIN PRN 01/02 1000 AC 01/04 IV 1058 Aspirin Buffered 81 MG DAILY 01/03 1000 AC 01/09 PO 0958 Atorvastatin Calcium 10 MG 01/05 1700 AC 01/09 PO 1656 Bisacodyl 5 MG DAILY 01/06 1345 AC 01/09 PO 0957 Cinacalcet 30 MG 17001/02 1700 AC 01/09 PO 1656 Clopidogrel Bisulfate 75 MG 01/05 AC 01/09 PO 1950 Cyanocobalamin 1,000 MCG DAILY 01/03 1000 AC 01/09 PO 0959 Docusate Sodium 100 MG DAILY 01/03 1000 AC 01/09 PO 0958 Epoetin Jaron 4,000 UNIT MoWeFr PRN 01/06 1000 AC IV Epoetin Jaron 3,000 UNIT MoWeFr PRN 01/06 1000 AC IV Heparin Sodium 25,000 UNIT Q24H 01/10 0730 AC (Porcine) IV Sodium Chloride 500 ML Heparin Sodium 25,000 UNIT Q24H 01/06 1515 DC 01/09 (Porcine) IV 2026 Sodium Chloride 500 ML Hydrocortisone 50 MG Q8 01/10 0600 AC 01/10 Sodium Succinate IV 0553 Hydrocortisone 100 MG Q8 01/08 1404 DC 01/09 Sodium Succinate IV 01/10 0000 2216 Lidocaine/Prilocaine 1 GAVI DAILY PRN 01/02 1645 TOP Morphine Sulfate 4 MG .STK-MED ONE 01/09 0819 DC IM 01/09 0820 Morphine Sulfate 2 MG Q4P PRN 01/02 1430 AC 05 IV 2022 Multivitamins 1 TAB DAILY 01/03 1000 AC 01/09 PO 0959 Norepinephrine 4 MG Q16H 01/04 1000 AC 01/10 Sodium Chloride 250 ML IV 0052 Nystatin 5 ML 4 TIMES/DAY 01/06 1800 DC 01/06 PO 05 1401 1721 Polyethylene Glycol 17 GM DAILY 01/05 1349 AC 01/09 PO 0959 Senna 187 MG AT BEDTIME 01/05 2200 AC 01/09 PO 2215 Sevelamer Carbonate 2,400 MG WM 01/02 1700 AC 01/09 PO 1656 Results Pertinent Lab/Brendan Results: Laboratory Tests 01/10 01/09 01/09 0550 1800 1032 Chemistry Sodium Pending Potassium Pending Chloride Pending Carbon Dioxide Pending Anion Gap Pending BUN Pending Creatinine Pending Glucose Pending Calcium Pending Phosphorus Pending Magnesium Pending Total Bilirubin Pending AST Pending ALT Pending Albumin Pending Coagulation APTT (25 - 37 SEC) 91 H 80 H 56 H Hematology CBC w Diff MAN DIFF ORDERED WBC (4.8 - 10.8 /CUMM) 10.9 H RBC (4.70 - 6.10 /CUMM) 2.78 L Hgb (14.0 - 18.0 G/DL) 8.5 L Hct (42 - 52 %) 26.2 L MCV (80.0 - 94.0 FL) 94.0 MCH (27.0 - 31.0 PG) 30.6 MCHC (33.0 - 37.0 G/DL) 32.6 L RDW (11.5 - 14.5 %) 16.6 H Plt Count (130 - 400 /CUMM) 205 MPV (7.4 - 10.4 FL) 9.2 Gran % (42.2 - 75.2 %) 89.1 H Lymphocytes % (20.5 - 51.1 %) 7.2 L Monocytes % (1.7 - 9.3 %) 3.4 Eosinophils % (0 - 5 %) 0 Basophils % (0.0 - 2.0 %) 0.3 Absolute Granulocytes (1.4 - 6.5 /CUMM) 9.8 H Segmented Neutrophils (42.2 - 75.2 %) 89 H Absolute Lymphocytes (1.2 - 3.4 /CUMM) 0.8 L Lymphocytes (20.5 - 51.1 %) 8 L Monocytes (1.7 - 9.3 %) 3 Absolute Monocytes (0.10 - 0.60 /CUMM) 0.4 Absolute Eosinophils (0.0 - 0.7 /CUMM) 0 Absolute Basophils (0.0 - 0.2 /CUMM) 0 Platelet Estimate (ADEQUATE) ADEQUATE Polychromasia 1+ Hypochromic-Microcytic 1+ Poikilocytosis 1+ Ovalocytes 1+ Other Body Source Fld Total RBCs Counted (%) 100
[2018-01-10 08:00] VITALS: BP 108/60
--- NOTE | 2018-01-10 10:18 | PN- Cardiology ---
Subjective Subjective: The patient is awake, alert The events of the last 24 hours as well as telemetry were reviewed. Review of Systems: The review of systems is negative for chest pains, palpitations nor lightheadedness. The remainder of the 14 point review of systems is noncontributory with the exception of above. Objective Vital Signs and I&Os Vital Signs Date Time Temp Pulse Resp B/P B/P Pulse O2 O2 Flow FiO2 Mean Ox Delivery Rate 01/10 0537 67 99 / 0400 99 CPAP Room Air 01/10 0229 67 97 / 0052 71 18 74/44 03 0019 66 99 03/ 0000 98 CPAP Room Air / 0000 97.1 68 18 76/40 98 CPAP 01/09 2227 88 97 01/09 2000 97 Room Air 01/09 1600 97.1 80 22 118/68 98 Room Air Intake & Output 01/10 1600 01/10 0800 / 0000 / 1600 01/09 0800 01/09 0000 Intake Total 466 924 848 336 627 Output Total 1999 Balance 466 924 -1152 336 627 Intake, IV 466 574 448 336 337 Intake, Oral 350 400 290 Number 0 Bowel Movements Output, 1999 Dialysate Physical Exam: General: Nontoxic, no apparent distress. HEENT: Sclera and conjunctiva within normal limits, without xanthelasmas. Neck: Carotids 2+ without bruits. Respiratory: Scattered rhonchi, air movement is good, without accessory respiratory muscle use. Heart: Regular rate and rhythm, without murmurs, without JVD. Abdomen: Soft, nontender, no masses, normoactive bowel sounds. Extremities: Without clubbing, cyanosis, without edema. Neuro: Nonfocal exam, strength, 5 out of 5 Skin: Within normal limits without lesions. Psych: Mood and affect: Normal Current Medications: Current Medications Sig/Bobo Start time Last Medication Dose Route Stop Time Status Admin Albumin Human 12.5 GM .Q30MIN PRN 01/02 1000 AC 01/04 IV 1058 Aspirin Buffered 81 MG DAILY 01/03 1000 AC 01/10 PO 0912 Atorvastatin Calcium 10 MG 1700 01/05 1700 AC 03/ PO 1656 Bisacodyl 5 MG DAILY 01/06 1345 AC 01/10 PO 0914 Cefazolin Sodium 2 GM 01/11 1000 AC N/A 1 UNIT IV Cinacalcet 30 MG 1700 01/02 1700 AC 01/09 PO 1656 Clopidogrel Bisulfate 75 MG 01/05 AC 01/09 PO 1950 Cyanocobalamin 1,000 MCG DAILY 01/03 1000 AC 01/10 PO 0912 Docusate Sodium 100 MG DAILY 01/03 1000 AC 01/10 PO 0912 Epoetin Jaron 4,000 UNIT MoWeFr PRN 01/06 1000 AC IV Epoetin Jaron 3,000 UNIT MoWeFr PRN 01/06 1000 AC IV Heparin Sodium 25,000 UNIT Q24H 01/10 0730 AC 01/10 (Porcine) IV 0911 Sodium Chloride 500 ML Heparin Sodium 25,000 UNIT Q24H 01/06 1515 DC 01/09 (Porcine) IV 202 Sodium Chloride 500 ML Hydrocortisone 50 MG Q8 01/10 0600 AC 01/10 Sodium Succinate IV 0553 Hydrocortisone 100 MG Q8 01/08 1404 DC 01/09 Sodium Succinate IV 01/10 0000 2216 Lidocaine/Prilocaine 1 GAVI DAILY PRN 01/02 1645 [facility] Morphine Sulfate 2 MG Q4P PRN 01/02 1430 AC 01/10 IV 0913 Multivitamins 1 TAB DAILY 01/03 1000 AC 01/09 PO 0959 Norepinephrine 4 MG Q16H 01/04 1000 AC 01/10 Sodium Chloride 250 ML IV 0052 Nystatin 5 ML 4 TIMES/DAY 01/06 1800 DC 01/06 PO 01/09 1401 1721 Polyethylene Glycol 17 GM DAILY 01/05 1349 AC 01/09 PO 0959 Senna 187 MG AT BEDTIME 01/05 2200 AC 01/09 PO 2215 Sevelamer Carbonate 2,400 MG WM 01/02 1700 AC 01/10 PO 0823 Results Last 48 Hrs of Labs/Mics: Laboratory Tests 01/10/18 0550: Anion Gap 11, Estimated GFR 14 L, Glucose 163 H, Calcium 8.7, Phosphorus 3.9, Magnesium 2.1, Total Bilirubin 0.3, AST 7 L, ALT 21, Albumin 2.9 L, APTT 91 H , CBC w Diff MAN DIFF ORDERED, RBC 2.78 L, MCV 94.0, MCH 30.6, MCHC 32.6 L, RDW 16.6 H, MPV 9.2, Gran % 89.1 H, Lymphocytes % 7.2 L, Monocytes % 3.4, Eosinophils % 0, Basophils % 0.3, Absolute Granulocytes 9.8 H, Segmented Neutrophils 89 H, Absolute Lymphocytes 0.8 L, Lymphocytes 8 L, Monocytes 3, Absolute Monocytes 0.4, Absolute Eosinophils 0, Absolute Basophils 0, Platelet Estimate ADEQUATE, Polychromasia 1+, Hypochromic-Microcytic 1+, Poikilocytosis 1 +, Ovalocytes 1+, Fld Total RBCs Counted 100 01/09/18 1800: APTT 80 H 01/09/18 1032: APTT 56 H 01/09/18 0300: Anion Gap 13, Estimated GFR 9 L, Glucose 174 H, Calcium 8.4, Phosphorus 5.0 H , Magnesium 2.1, Total Bilirubin 0.3, AST 9 L, ALT 17 L, Albumin 2.8 L, Cortisol AM Sample 56.0 H, APTT 60 H, CBC w Diff MAN DIFF ORDERED, RBC 2.63 L , MCV 93.6, MCH 30.4, MCHC 32.5 L, RDW 16.6 H, MPV 9.1, Gran % 92.8 H, Lymphocytes % 6.3 L, Monocytes % 0.7 L, Eosinophils % 0.1, Basophils % 0.1, Absolute Granulocytes 7.0 H, Segmented Neutrophils 92 H, Band Neutrophils 1, Absolute Lymphocytes 0.5 L, Lymphocytes 5 L, Monocytes 1 L, Absolute Monocytes 0.1, Eosinophils 1, Absolute Eosinophils 0, Absolute Basophils 0, Platelet Estimate ADEQUATE, Poikilocytosis 1+, Basophilic Stippling RARE, Anisocytosis 1+, Elliptocytes 1+ 01/08/18 1530: APTT 61 H Assessment/Plan Assessment/Plan 1. Coronary disease by history status post coronary bypass surgery 2006 with complex PCI to the left main into the circumflex September 2017 with normal LV function 2. Hx of Hypertension, currently hypotensive with questionable adrenal insufficiency 3. Peripheral arterial disease status post prior amputation now S/P right AKA 4. End-stage renal disease on dialysis 5. 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 Repeat YULIA to 01/02/18 was negative for vegetations; however, with severe mitral regurgitation and possible perforation 6. Diabetes 7. Fever and chills with hypotension most likely secondary to sepsis. 8. Elevated troponins, minimal, not due to ACS 9. Intermittent atrial fibrillation possibly due to sepsis Coronary artery disease: The patient has known coronary artery disease, and a stable in regards to the same. He will continue his current medication regimen. A beta debbi will be initiated if able to tolerate from a blood pressure standpoint, once pressors are discontinued. Bacteremia: A YULIA demonstrated no vegetations; however, likely valvular perforation of the posterior mitral valve leaflet and moderate to severe regurgitation. He will likely require surgical intervention of his mitral valve. This will be further evaluated to be performed as an outpatient. He will continue a course of antibiotics as per ID. Atrial fibrillation: The patient has atrial fibrillation. Given the results of the YULIA demonstrating moderate to severe regurgitation, this is a likely etiology. Full anticoagulation will need to be maintained. Hypotension: Appreciate endocrinology input. The patient is currently being treated for adrenal insufficiency. Pressors will continue until able to be weaned off. Continue telemetry? Yes
--- NOTE | 2018-01-10 10:40 | PN- Infect Dx ---
Subjective Subjective: Afebrile on steroids. His blood pressure remains low despite Levophed. He offers no complaints at this time. Objective Last 24 Hrs of Vital Signs/I&O Vital Signs Date Time Temp Pulse Resp B/P B/P Pulse O2 O2 Flow FiO2 Mean Ox Delivery Rate 01/10 0537 67 99 01/10 0400 99 CPAP Room Air 01/10 0229 67 97 / 0052 71 18 74/44 01/10 0019 66 99 / 0000 98 CPAP Room Air 01/10 0000 97.1 68 18 76/40 98 CPAP 01/09 2227 88 97 / 2000 97 Room Air 01/09 1600 97.1 80 22 118/68 98 Room Air Intake & Output 01/10 1600 01/10 0800 01/10 0000 Intake Total 466 924 Output Total Balance 466 924 Intake, IV 466 574 Intake, Oral 350 Physical Exam Other Physical Findings: He appears comfortable in no acute distress Neck left IJ triple-lumen catheter with no inflammation at the site Lungs are clear Heart regular rhythm with no murmur Extremities right AKA dressing intact Results Last 24 Hours of Lab Results: Laboratory Tests 01/10 01/09 0550 1800 Chemistry Sodium (137 - 145 mmol/L) 136 L Potassium (3.5 - 5.1 mmol/L) 4.1 Chloride (98 - 107 mmol/L) 98 Carbon Dioxide (22 - 30 mmol/L) 26 Anion Gap (5 - 16) 11 BUN (9 - 20 mg/dL) 34 H Creatinine (0.7 - 1.2 mg/dL) 4.4 H Estimated GFR (>60 ml/min) 14 L Glucose (65 - 99 mg/dL) 163 H Calcium (8.4 - 10.2 mg/dL) 8.7 Phosphorus (2.5 - 4.5 mg/dL) 3.9 Magnesium (1.6 - 2.3 mg/dL) 2.1 Total Bilirubin (0.2 - 1.3 mg/dL) 0.3 AST (17 - 59 U/L) 7 L ALT (21 - 72 U/L) 21 Albumin (3.5 - 5.0 g/dL) 2.9 L Coagulation APTT (25 - 37 SEC) 91 H 80 H Hematology CBC w Diff MAN DIFF ORDERED WBC (4.8 - 10.8 /CUMM) 10.9 H RBC (4.70 - 6.10 /CUMM) 2.78 L Hgb (14.0 - 18.0 G/DL) 8.5 L Hct (42 - 52 %) 26.2 L MCV (80.0 - 94.0 FL) 94.0 MCH (27.0 - 31.0 PG) 30.6 MCHC (33.0 - 37.0 G/DL) 32.6 L RDW (11.5 - 14.5 %) 16.6 H Plt Count (130 - 400 /CUMM) 205 MPV (7.4 - 10.4 FL) 9.2 Gran % (42.2 - 75.2 %) 89.1 H Lymphocytes % (20.5 - 51.1 %) 7.2 L Monocytes % (1.7 - 9.3 %) 3.4 Eosinophils % (0 - 5 %) 0 Basophils % (0.0 - 2.0 %) 0.3 Absolute Granulocytes (1.4 - 6.5 /CUMM) 9.8 H Segmented Neutrophils (42.2 - 75.2 %) 89 H Absolute Lymphocytes (1.2 - 3.4 /CUMM) 0.8 L Lymphocytes (20.5 - 51.1 %) 8 L Monocytes (1.7 - 9.3 %) 3 Absolute Monocytes (0.10 - 0.60 /CUMM) 0.4 Absolute Eosinophils (0.0 - 0.7 /CUMM) 0 Absolute Basophils (0.0 - 0.2 /CUMM) 0 Platelet Estimate (ADEQUATE) ADEQUATE Polychromasia 1+ Hypochromic-Microcytic 1+ Poikilocytosis 1+ Ovalocytes 1+ Other Body Source Fld Total RBCs Counted (%) 100 Last 24 Hours of Brendan Results: No new cultures Assessment/Plan ID Impression: Stable, though remains hypotensive despite pressors and a trial of steroids for presumed relative adrenal insufficiency, now 8 days status post right AKA for a presumably infected right BKA stump, though the pathology did not reveal any significant inflammation of this area. He remains afebrile with a normal white blood cell count on Cefazolin Day 15 of treatment for Staph aureus sepsis/ possible endocarditis, now 13 days since negative blood cultures, with the YULIA negative for any vegetation but revealing evidence of a perforation of the mitral valve leaflet and moderate to severe mitral regurgitation, for which he will require valve replacement. Suggestion: 1. Remove left IJ triple-lumen catheter once he is off pressors 2. Eventual mitral valve replacement per Cardiology 3. Continue Cefazolin, dosed after each dialysis, to plan on a 6 week course of treatment
[2018-01-10 14:05] LABS: PTT 69 SEC (25-37)
[2018-01-10 16:00] VITALS: BP 92/56
--- NOTE | 2018-01-10 16:21 | Event Note ---
Event Note Event Note: S; bleeding from AV fistula B: Patient is 57-year-old gentleman being treated for sepsis of unclear etiology at this point he also has history of ESRD on HD has AV fistula in left arm. Patient is on IV heparin for paroxysmal atrial fibrillation A/R KYLIE Ledesma contacted the dialysis center and was given instructions to control bleeding. In light of current events were going to hold heparin for on one hour to control bleeding from the AV fistula and will resume heparin after that.
--- NOTE | 2018-01-10 20:38 | Event Note ---
Event Note Event Note: The patient was reported to have oozing from left arm fistula. Earlier today heparin was stopped for 1 hour and restarted for the same. Nursing staff stopped heparin after processing the oozing. Side examined the patient. He is concerned about the opposing and the fact it starts whenever heparin is restarted. The scheduled for hemodialysis tomorrow morning. During my physical exam there was no sign of oozing/bleeding. Contacted attending Dr. 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 Peralta. Will stop heparin for 2 hours and resume without bolus at 10:30 PM as per cardiology recommendations. Cardiology suggested that we can stop heparin if there is another episode of bleeding.
[2018-01-11] VITALS: BP 100/60
[2018-01-11 01:22] LABS: PTT 52 SEC (25-37)
[2018-01-11 04:59] LABS: ABSOLUTE BASOPHIL COUNT 0 /CUMM (0.0-0.2); ABSOLUTE EOSINOPHIL COUNT 0 /CUMM (0.0-0.7); ABSOLUTE GRANULOCYTE CT 10.3 /CUMM (1.4-6.5); ABSOLUTE LYMPH COUNT 1.1 /CUMM (1.2-3.4); ABSOLUTE MONOCYTE COUNT 0.5 /CUMM (0.10-0.60); BASOPHIL % 0.2 % (0.0-2.0); EOSINOPHIL % 0.3 % (0-5); GRANULOCYTE % 86.5 % (42.2-75.2); HEMATOCRIT 26.8 % (42-52); MEAN CORPUSCULAR HGB 30.8 PG (27.0-31.0); MEAN CORPUSCULAR HGB CONC 32.8 G/DL (33.0-37.0); MEAN CORPUSCULAR VOLUME 94.1 FL (80.0-94.0); MEAN PLATELET VOLUME 9.1 FL (7.4-10.4); PLATELET COUNT 262 /CUMM (130-400); RBC DISTRIBUTION WIDTH 16.6 % (11.5-14.5); RED BLOOD CELL CT 2.85 /CUMM (4.70-6.10); WHITE BLOOD CELL COUNT 11.9 /CUMM (4.8-10.8)
--- NOTE | 2018-01-11 07:47 | PN- Endocrinology ---
Assessment/Plan Endoscopy Assessment: The patient is being treated for relative adrenal insufficiency. He is on Solu- Cortef 50 mg IV every 8 hours. He still requires some pressors. He has been found to have significant mitral regurgitation. Overall he states he feels well. He continues on cefazolin. He remains on dialysis. Plan: Suggest continue Solu-Cortef 50 mg IV every 8 hours. Subjective Subjective: Feels okay Review of Systems Constitutional: Denies: chills, fever. Cardiovascular: Denies: chest pain. Gastrointestinal: Denies: nausea, vomiting. Objective Last 24 Hrs of Vital Signs/I&O Vital Signs Date Time Temp Pulse Resp B/P B/P Pulse O2 O2 Flow FiO2 Mean Ox Delivery Rate / 0529 67 97 03/07 0400 100 CPAP 03/07 0315 66 99 03/07 0150 113/60 03/07 0046 68 97 03/07 0000 96 Room Air 03/07 0000 96.7 69 20 100/60 96 Room Air 03/06 2243 82 96 03/06 1600 97.1 69 18 92/56 96 Room Air 03/06 1432 80 94/56 03/06 1430 80 94/56 03/06 1200 98 Room Air 03/06 0800 98 Room Air 03/06 0800 97.6 71 18 108/60 98 Room Air Intake & Output 03/07 0800 03/07 0000 03/06 1600 Intake Total 380 522.8 625 Output Total 0 Balance 380 522.8 625 Intake, IV 330 222.8 385 Intake, Oral 50 300 240 Number 0 Bowel Movements Output, Urine 0 Vital Signs Date Time Temp Pulse Resp B/P B/P Pulse O2 O2 Flow FiO2 Mean Ox Delivery Rate 01/11 0529 67 97 03/07 0400 100 CPAP 03/07 0315 66 99 03/07 0150 113/60 03/07 0046 68 97 03/07 0000 96 Room Air 03/07 0000 96.7 69 20 100/60 96 Room Air 03/06 2243 82 96 03/06 1600 97.1 69 18 92/56 96 Room Air 03/06 1432 80 94/56 03/06 1430 80 94/56 03/06 1200 98 Room Air 03/06 0800 98 Room Air 03/06 0800 97.6 71 18 108/60 98 Room Air Intake & Output 03/07 0800 03/07 0000 03/06 1600 Intake Total 380 522.8 625 Output Total 0 Balance 380 522.8 625 Intake, IV 330 222.8 385 Intake, Oral 50 300 240 Number 0 Bowel Movements Output, Urine 0 Physical Exam General Appearance: alert, awake Head: normal appearance Respiratory: normal breath sounds Cardiovascular: regular rate/rhythm Extremities: right AKA Current Medications: Current Medications Sig/Bobo Start time Last Medication Dose Route Stop Time Status Admin Albumin Human 12.5 GM .Q30MIN PRN 01/02 1000 AC 01/04 IV 1058 Aspirin Buffered 81 MG DAILY 01/03 1000 AC 01/10 PO 0912 Atorvastatin Calcium 10 MG 17001/05 1700 AC 01/10 PO 1652 Bisacodyl 5 MG DAILY 01/06 1345 AC 01/10 PO 0914 Cefazolin Sodium 2 GM 01/11 1000 AC N/A 1 UNIT IV Cinacalcet 30 MG 01/02 1700 AC 01/10 PO 1652 Clopidogrel Bisulfate 75 MG 01/05 2000 AC 01/10 PO 1905 Cyanocobalamin 1,000 MCG DAILY 01/03 1000 AC 01/10 PO 0912 Docusate Sodium 100 MG DAILY 01/03 1000 AC 01/10 PO 0912 Epoetin Jaron 4,000 UNIT MoWeFr PRN 01/06 1000 AC IV Epoetin Jaron 3,000 UNIT MoWeFr PRN 01/06 1000 AC IV Heparin Sodium 25,000 UNIT Q24H 01/10 0730 AC 01/10 (Porcine) IV 0911 Sodium Chloride 500 ML Hydrocortisone 50 MG Q8 01/10 06 AC 01/11 Sodium Succinate IV 0509 Lidocaine/Prilocaine 1 GAVI DAILY PRN 01/02 1645 TOP Morphine Sulfate 2 MG Q4P PRN 01/02 1430 AC 01/10 IV 1906 Multivitamins 1 TAB DAILY 01/03 1000 AC 01/10 PO 1430 Norepinephrine 4 MG Q16H 01/04 1000 AC 01/11 Sodium Chloride 250 ML IV 0150 Polyethylene Glycol 17 GM DAILY 01/05 1349 AC 01/09 PO 0959 Senna 187 MG AT BEDTIME 01/05 2200 AC 01/10 PO 2157 Sevelamer Carbonate 2,400 MG WM 01/02 1700 AC 01/10 PO 1652 Results Pertinent Lab/Brendan Results: Laboratory Tests 01/11 01/11 01/11 01/10 0657 0344 0053 1230 Chemistry Sodium (137 - 145 mmol/L) 134 L Potassium (3.5 - 5.1 mmol/L) 4.4 Chloride (98 - 107 mmol/L) 98 Carbon Dioxide (22 - 30 mmol/L) 26 Anion Gap (5 - 16) 11 BUN (9 - 20 mg/dL) 45 H Creatinine (0.7 - 1.2 mg/dL) 5.9 *H Estimated GFR (>60 ml/min) 10 L Glucose (65 - 99 mg/dL) 180 H Calcium (8.4 - 10.2 mg/dL) 8.7 Phosphorus (2.5 - 4.5 mg/dL) 4.1 Magnesium (1.6 - 2.3 mg/dL) 2.1 Total Bilirubin (0.2 - 1.3 mg/dL) 0.3 AST (17 - 59 U/L) 4 L ALT (21 - 72 U/L) 17 L Albumin (3.5 - 5.0 g/dL) 3.0 L Coagulation APTT (25 - 37 SEC) Pending 52 H 69 H Hematology CBC w Diff MAN DIFF ORDERED WBC (4.8 - 10.8 /CUMM) 11.9 H RBC (4.70 - 6.10 /CUMM) 2.85 L Hgb (14.0 - 18.0 G/DL) 8.8 L Hct (42 - 52 %) 26.8 L MCV (80.0 - 94.0 FL) 94.1 H MCH (27.0 - 31.0 PG) 30.8 MCHC (33.0 - 37.0 G/DL) 32.8 L RDW (11.5 - 14.5 %) 16.6 H Plt Count (130 - 400 /CUMM) 262 MPV (7.4 - 10.4 FL) 9.1 Gran % (42.2 - 75.2 %) 86.5 H Lymphocytes % (20.5 - 51.1 %) 9.1 L Monocytes % (1.7 - 9.3 %) 3.9 Eosinophils % (0 - 5 %) 0.3 Basophils % (0.0 - 2.0 %) 0.2 Absolute Granulocytes (1.4 - 6.5 /CUMM) 10.3 H Segmented Neutrophils (42.2 - 75.2 %) 93 H Absolute Lymphocytes (1.2 - 3.4 /CUMM) 1.1 L Lymphocytes (20.5 - 51.1 %) 6 L Monocytes (1.7 - 9.3 %) 1 L Absolute Monocytes (0.10 - 0.60 /CUMM) 0.5 Absolute Eosinophils (0.0 - 0.7 /CUMM) 0 Absolute Basophils (0.0 - 0.2 /CUMM) 0 Platelet Estimate (ADEQUATE) ADEQUATE Anisocytosis 1+ Elliptocytes 1+
--- NOTE | 2018-01-11 07:53 | PN- Resident CRCU ---
Cricket MARTINEZ,Cathy 01/11/18 0753: Subjective HPI/CRCU Issues: Patient seen and examined, [facility] Vital Signs & I&O Last 8 Hrs of Vitals and I&O: Vital Signs Date Time Temp Pulse Resp B/P B/P Pulse O2 O2 Flow FiO2 Mean Ox Delivery Rate 01/11 1200 93 Nasal 6.0L Cannula 01/11 1008 70 99/53 01/11 0800 96 Room Air 01/11 0529 67 97 01/11 0400 100 CPAP 01/11 0315 66 99 03/07 0150 113/60 03/ 0046 68 97 03/ 0000 96 Room Air 03/ 0000 96.7 69 20 100/60 96 Room Air 01/10 2243 82 96 01/10 1600 97.1 69 18 92/56 96 Room Air Intake & Output 01/11 1600 01/11 0800 03/ 0000 Intake Total 1518.4 380 522.8 Output Total Balance 1518.4 380 522.8 Intake, IV 1038.4 330 222.8 Intake, Oral 480 50 300 Intake & Output 01/11 1600 Intake Total 1518.4 Output Total Balance 1518.4 Intake, IV 1038.4 Intake, Oral 480 Exam General Appearance: well developed/nourished, no apparent distress Other Physical Findings: Head: atraumatic, normal appearance Respiratory: normal breath sounds, chest non-tender Cardiovascular: regular rate/rhythm, murmur Gastrointestinal: normal bowel sounds, soft, non-tender Extremities: R aka, Left AV fistula Cranial Nerves: normal hearing, normal speech Current Medications: Current Medications Sig/Bobo Start time Last Medication Dose Route Stop Time Status Admin Albumin Human 12.5 GM .Q30MIN PRN 01/02 1000 AC 01/04 IV 1058 Aspirin Buffered 81 MG DAILY 01/03 1000 AC 01/11 PO 1005 Atorvastatin Calcium 10 MG 01/05 1700 AC 01/10 PO 1652 Bisacodyl 5 MG DAILY 01/06 1345 AC 01/11 PO 1005 Cefazolin Sodium 2 GM 01/11 1000 AC 01/11 N/A 1 UNIT IV 1005 Cinacalcet 30 MG 01/02 1700 AC 01/10 PO 1652 Clopidogrel Bisulfate 75 MG 01/05 AC 01/10 PO 1905 Cyanocobalamin 1,000 MCG DAILY 01/03 1000 AC 01/11 PO 1005 Docusate Sodium 100 MG DAILY 01/03 1000 AC 01/11 PO 1005 Dopamine HCl 400 MG ONCE ONE 01/11 0915 DC 01/11 Dextrose/Water 500 ML IV 01/11 0916 1008 Epoetin Jaron 4,000 UNIT MoWeFr PRN 01/06 1000 AC IV Epoetin Jaron 3,000 UNIT MoWeFr PRN 01/06 1000 AC IV Heparin Sodium 25,000 UNIT Q24H 01/10 0730 AC 01/11 (Porcine) IV 0817 Sodium Chloride 500 ML Hydrocortisone 50 MG Q8 01/10 0600 AC 01/11 Sodium Succinate IV 1439 Lidocaine/Prilocaine 1 GAVI DAILY PRN 01/02 1645 AC TOP Morphine Sulfate 2 MG Q4P PRN 01/02 1430 AC 01/11 IV 1005 Multivitamins 1 TAB DAILY 01/03 1000 AC 01/11 PO 1005 Norepinephrine 4 MG Q16H 01/04 1000 AC 01/11 Sodium Chloride 250 ML IV 0150 Polyethylene Glycol 17 GM DAILY 01/05 1349 AC 01/11 PO 1005 Senna 187 MG AT BEDTIME 01/05 2200 AC 01/10 PO 2157 Sevelamer Carbonate 2,400 MG WM 01/02 1700 AC 01/11 PO 1140 Impression/Plan Impression/Problem List Impression: Patient is a 57-year-old male with past medical history significant for peripheral arterial disease status post right [id number] amputation, end- stage renal disease on hemodialysis, coronary artery disease status post PCI and 1 drug-eluting stent in the left main circumflex artery (September 2017) and status post quadruple CABG (2006), diabetes, history of obstructive sleep apnea on CPAP at night, chronic anemia, most recent admission for septic arthritis and staph aureus sepsis, mitral valve endocarditis, osteomyelitis, history of C. difficile presented this admission after he was found to be hypotensive and tachycardic during dialysis with report of recent fatigue and dyspnea. 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 postop day 5, OR culture negative so far -Relapse of his endocarditis,SAM negative for vegetations, perforation of mitral valve -Seeding from bacteremia diskitis in setting of IE CT scan spine with IV contarst negative, (suboptimal study and pt not a candidate for MRI with gadolinium) -Lingular consolidation with air bronchograms which favors atelectasis, although pneumonia could not excluded on imaging -Infected lines s/p R.femoral TLC removal 2/2 MSSA bacteremia x2, and right IJ removal 2/2 fever spike and leukocytosis * S/p Proline placement in L- IJ on 01/05 on Pressors Goal MAP 55 to 60 * Monitor fever and WBC curve afebrile without white count on steriods * BCx2 seconds set negative BCx2 thirds set negative * Continue cefazolin 2g daily after dialysis 4 to 6 weeks Day 13 days since negative BC Cardiovascular #Atrial fibrillation: Pt paroxysmal afib and is itnermittently going in and out of A.fib 2/2 sepsis versus mitral valve regurgitation.Pt was started on Heparin on 12/28/2017. Heparin drip has been held intermittently for surgery and drop in H&H 2/2 to postop bleeding from surgical site * CBC stabe, continue heparin drip, was stopped intermittently yesterday because oozing from AV fistula #Hypotension: The patient has relative cortisol deficiency with cortisol level of 7.8. Patient remains on pressors. * Hydrocortisone 50mg IV q8 * MAP to 55- 60, Try to wean off pressor, currently on levophhed @1.5mcg, pt has been strated on Dopmaine 5mcg #CAD s/p stent and CABG : Chronic and stable * Continue Aspirin, Clopidogrel, statin #Mitral regurgitation and possible perforation on SAM Possible mitral valve surgery as an outpatient #Type II NE: Resolved. Peak troponin 0.23 on 12/27 Hemetology #Chronic Anemia H/H dropped from 08/04 to 6.8/21 on 01/05. Hemoglobin 8 to 9 is his baseline. He recieved 1 unit pRBCS postop on 01/03 and 1 units on 01/05. Likely secondary to bleeding from surgical site.CT scan negative for retroperitoneal bleed * H/H stable, continue to monitor #Leukocytosis resolved Metabolic #Transaminitis -Resolved Likely reactive postop. Statin was initially held and later restarted Alimentary #Dialysis diet #Continue Colace MiraLAX and docusate Nephrology #ESRD: Next dialysis 01/11 * Use 12.5 g of 25% IV albumin Q30 PRN for SBP <100 for BP maintaince during dialysis * Continue Epojen, Sensipar and Sevelamer DVT prophylaxis IV Heparin Problem List: 1. Sepsis Pain Ratin Tomorrow's Labs & Rationales: cbc icu bundle Plan DVT/Prophylaxis: Saul Toscano MD 01/11/18 1003: Attending MD Review Statement Attending Sign Off Attending Cosign Statement: I have: examined this patient, reviewed avalbl EMR data, personally reviewd images, discussd w/resident/PA/DEFLECTOR OPERATOR, discussed mgmt plan w/whit, discussed mgmt plan w/CM, discussed mgmt plan w/pt, agreed w/resident/PA/DEFLECTOR OPERATOR, amended to note. Other Findings: Saul Evans M.D. have examined this patient, reviewed available EMR data, personally reviewed images, discussed with resident/PA/DEFLECTOR OPERATOR, discussed management plan with housestaff and nursing staff, discussed managment plan all of healthcare providers, discussed management plan with patient and/or family, agreed with resident/PA/DEFLECTOR OPERATOR. The past history and parts of the chart have been autopopulated. Impression 57 year old man * staph aureus sepsis * s/p aka * ESRD on HD * chronic anemia * a.fib on heparin gtt * s/p sam showing ? perforation in posterior leaflet without obvious clinical significance and will require surveillance * adrenal insufficiency Plan -endocrinology appreciated, cont solucortef, will follow recs -begin dopamine, titrate levophed, will cont to discuss valvular surgery timing -s/p proline -f/u nephrology, ID, vascular surgery, cardiology -again febrile, pressors -monitor cbc -HD per renal -map goal 55 -heparin gtt DVT prophylaxis at all times TTS 35 min
[2018-01-11 08:00] VITALS: BP 92/60
[2018-01-11 08:18] LABS: PTT 78 SEC (25-37)
--- NOTE | 2018-01-11 10:52 | PN- Cardiology ---
Subjective Subjective: The patient is awake, alert The patient remains on norepinephrine given blood pressure drops when titrated off. He is however asymptomatic for this. The events of the last 24 hours as well as telemetry were reviewed. Review of Systems: The review of systems is negative for chest pains, palpitations nor lightheadedness. The remainder of the 14 point review of systems is noncontributory with the exception of above. Objective Vital Signs and I&Os Vital Signs Date Time Temp Pulse Resp B/P B/P Pulse O2 O2 Flow FiO2 Mean Ox Delivery Rate 01/11 1008 70 99/53 03/07 0800 96 Room Air / 0529 67 97 03/ 0400 100 CPAP / 0315 66 99 03/07 0150 113/60 03/07 0046 68 97 03/07 0000 96 Room Air 03/07 0000 96.7 69 20 100/60 96 Room Air / 2243 82 96 03/ 1600 97.1 69 18 92/56 96 Room Air 03/ 1432 80 94/56 03/06 1430 80 94/56 03/06 1200 98 Room Air Intake & Output / 1600 03/07 0800 03/07 0000 03/06 1600 03/06 0800 03/06 0000 Intake Total 380 522.8 625 466 924 Output Total 0 Balance 380 522.8 625 466 924 Intake, IV 330 222.8 385 466 574 Intake, Oral 50 300 240 350 Number 0 Bowel Movements Output, Urine 0 Physical Exam: General: Nontoxic, no apparent distress. HEENT: Sclera and conjunctiva within normal limits, without xanthelasmas. Neck: Carotids 2+ without bruits. Respiratory: Scattered rhonchi, air movement is good, without accessory respiratory muscle use. Heart: Regular rate and rhythm, 3/6 systolic ejection murmur left sternal border , without JVD. Abdomen: Soft, nontender, no masses, normoactive bowel sounds. Extremities: Without clubbing, cyanosis, without edema. Neuro: Nonfocal exam, strength, 5 out of 5 Skin: Within normal limits without lesions. Psych: Mood and affect: Normal Current Medications: Current Medications Sig/Bobo Start time Last Medication Dose Route Stop Time Status Admin Albumin Human 12.5 GM .Q30MIN PRN 01/02 1000 AC 01/04 IV 1058 Aspirin Buffered 81 MG DAILY 01/03 1000 AC 01/11 PO 1005 Atorvastatin Calcium 10 MG 01/05 1700 AC 01/10 PO 1652 Bisacodyl 5 MG DAILY 01/06 1345 AC 01/11 PO 1005 Cefazolin Sodium 2 GM 01/11 1000 AC 01/11 N/A 1 UNIT IV 1005 Cinacalcet 30 MG 17001/02 1700 AC 01/10 PO 1652 Clopidogrel Bisulfate 75 MG 01/05 2000 AC 01/10 PO 1905 Cyanocobalamin 1,000 MCG DAILY 01/03 1000 AC 01/11 PO 1005 Docusate Sodium 100 MG DAILY 01/03 1000 AC 01/11 PO 1005 Dopamine HCl 400 MG ONCE ONE 01/11 915 DC 01/11 Dextrose/Water 500 ML IV 01/12 916 1008 Epoetin Jaron 4,000 UNIT MoWeFr PRN 01/06 1000 AC IV Epoetin Jaron 3,000 UNIT MoWeFr PRN 01/06 1000 AC IV Heparin Sodium 25,000 UNIT Q24H 01/10 0730 AC 01/11 (Porcine) IV 0817 Sodium Chloride 500 ML Hydrocortisone 50 MG Q8 01/10 0600 AC 01/11 Sodium Succinate IV 0509 Lidocaine/Prilocaine 1 GAVI DAILY PRN 01/02 1645 AC TOP Morphine Sulfate 2 MG Q4P PRN 01/02 1430 AC 01/11 IV 1005 Multivitamins 1 TAB DAILY 01/03 1000 AC 01/11 PO 1005 Norepinephrine 4 MG Q16H 01/04 1000 AC 01/11 Sodium Chloride 250 ML IV 0150 Polyethylene Glycol 17 GM DAILY 01/05 1349 AC 01/11 PO 1005 Senna 187 MG AT BEDTIME 01/05 220 AC 01/10 PO 2157 Sevelamer Carbonate 2,400 MG WM 01/02 1700 AC 01/11 PO 0816 Results Last 48 Hrs of Labs/Mics: Laboratory Tests 01/11/18 0657: APTT 78 H 01/11/18 0344: Anion Gap 11, Estimated GFR 10 L, Glucose 180 H, Calcium 8.7, Phosphorus 4.1, Magnesium 2.1, Total Bilirubin 0.3, AST 4 L, ALT 17 L, Albumin 3.0 L, CBC w Diff MAN DIFF ORDERED, RBC 2.85 L, MCV 94.1 H, MCH 30.8, MCHC 32.8 L, RDW 16.6 H, MPV 9.1, Gran % 86.5 H, Lymphocytes % 9.1 L, Monocytes % 3.9, Eosinophils % 0.3, Basophils % 0.2, Absolute Granulocytes 10.3 H, Segmented Neutrophils 93 H, Absolute Lymphocytes 1.1 L, Lymphocytes 6 L, Monocytes 1 L , Absolute Monocytes 0.5, Absolute Eosinophils 0, Absolute Basophils 0, Platelet Estimate ADEQUATE, Anisocytosis 1+, Elliptocytes 1+ 01/11/18 0053: APTT 52 H 01/10/18 1230: APTT 69 H 01/10/18 0550: Anion Gap 11, Estimated GFR 14 L, Glucose 163 H, Calcium 8.7, Phosphorus 3.9, Magnesium 2.1, Total Bilirubin 0.3, AST 7 L, ALT 21, Albumin 2.9 L, APTT 91 H , CBC w Diff MAN DIFF ORDERED, RBC 2.78 L, MCV 94.0, MCH 30.6, MCHC 32.6 L, RDW 16.6 H, MPV 9.2, Gran % 89.1 H, Lymphocytes % 7.2 L, Monocytes % 3.4, Eosinophils % 0, Basophils % 0.3, Absolute Granulocytes 9.8 H, Segmented Neutrophils 89 H, Absolute Lymphocytes 0.8 L, Lymphocytes 8 L, Monocytes 3, Absolute Monocytes 0.4, Absolute Eosinophils 0, Absolute Basophils 0, Platelet Estimate ADEQUATE, Polychromasia 1+, Hypochromic-Microcytic 1+, Poikilocytosis 1 +, Ovalocytes 1+, Fld Total RBCs Counted 100 01/09/18 1800: APTT 80 H Assessment/Plan Assessment/Plan 1. Coronary disease by history status post coronary bypass surgery 2006 with complex PCI to the left main into the circumflex September 2017 with normal LV function 2. Hx of Hypertension, currently hypotensive with questionable adrenal insufficiency 3. Peripheral arterial disease status post prior amputation now S/P right AKA 4. End-stage renal disease on dialysis 5. 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 Repeat YULIA to 01/02/18 was negative for vegetations; however, with severe mitral regurgitation and possible perforation 6. Diabetes 7. Fever and chills with hypotension most likely secondary to sepsis. 8. Elevated troponins, minimal, not due to ACS 9. Intermittent atrial fibrillation possibly due to sepsis Coronary artery disease: The patient has known coronary artery disease, and a stable in regards to the same. He will continue his current medication regimen. A beta debbi will be initiated if able to tolerate from a blood pressure standpoint, once pressors are discontinued. Bacteremia: A YULIA demonstrated no vegetations; however, likely valvular perforation of the posterior mitral valve leaflet and moderate to severe regurgitation. He will likely require surgical intervention of his mitral valve. This will be further evaluated to be performed as an outpatient. He will continue a course of antibiotics as per ID. Atrial fibrillation: The patient has atrial fibrillation. Given the results of the YULIA demonstrating moderate to severe regurgitation, this is a likely etiology. Full anticoagulation will need to be maintained. Hypotension: Appreciate endocrinology input. The patient is currently being treated for adrenal insufficiency. He continues to need pressors due to hypotension when off. At this time, we will attempt to change his norepinephrine to dopamine given its possible more favorable effects with mitral regurgitation. We will as well attempt slight fluid resuscitation if tolerated. Further consideration of agents such as octreotide to raise his blood pressure a be given if needed. We will base symptoms as goals of blood pressure targets. Continue telemetry? Yes
[2018-01-11 12:00] VITALS: BP 114/60
--- NOTE | 2018-01-11 12:26 | PN- Nephrology ---
Assessment/Plan Nephrology Assessment: ESRD - Routine HD today. Total body volume expanded with severe MR demonstrated on YULIA - needs fluid over if hemodynamics can tolerate. Anemia - Epogen increased from 5000U TIW (outpatient dose) to 7000U TIW. MSSA bacteremia - Cultures neg. CT C/A/P unrevealing of source. ID following - remains on abx - likely to just complete 4-6 week course. Hypoxia - Fluid until proven otherwise - will try and remove 3L UF. Suggestion: -HD today - 3L UF as tolerated -Epogen 7000U TIW -Repeat chest x-ray if no improvement in oxygenation after dialysis -Tentative plans for dialysis Tuesday and Tuesday Please call [phone] with ?'s Subjective Subjective: Pt seen and examined on dialysis Remains on pressors - switched to dopa Now hypoxic Objective Vital Signs and I&Os Vital Signs Date Time Temp Pulse Resp B/P B/P Pulse O2 O2 Flow FiO2 Mean Ox Delivery Rate 01/11 1008 70 99/53 / 0800 96 Room Air / 0529 67 97 03/07 0400 100 CPAP 03/ 0315 66 99 03/07 0150 113/60 03/07 0046 68 97 03/07 0000 96 Room Air 03/07 0000 96.7 69 20 100/60 96 Room Air 03/06 2243 82 96 03/06 1600 97.1 69 18 92/56 96 Room Air 03/06 1432 80 94/56 03/06 1430 80 94/56 Intake & Output 03/07 1600 03/07 0400 03/06 1600 03/06 0400 03/05 1600 03/05 0400 Intake Total 380 522.8 2434 472 6442 627 Output Total 0 1999 Balance 380 522.8 1091 924 -816 627 Intake, IV 330 222.8 851 574 784 337 Intake, Oral 50 300 240 350 400 290 Number 0 0 Bowel Movements Output, 2000 Dialysate Output, Urine 0 Physical Exam: Gen - OK appearing HEENT - supple CV - RRR, no m/r/g Chest - decreased BS at bases Abd - soft, NTND Ext - +edema, s/p RLE amputation; LLA AVF +thrill/+bruit Neuro - AOX3, grossly nonfocal Current Medications: Current Medications Sig/Bobo Start time Last Medication Dose Route Stop Time Status Admin Albumin Human 12.5 GM .Q30MIN PRN 01/02 1000 AC 01/04 IV 1058 Aspirin Buffered 81 MG DAILY 01/03 1000 AC 01/11 PO 1005 Atorvastatin Calcium 10 MG 17001/05 1700 AC 01/10 PO 1652 Bisacodyl 5 MG DAILY 01/06 1345 AC 01/11 PO 1005 Cefazolin Sodium 2 GM 01/11 1000 AC 01/11 N/A 1 UNIT IV 1005 Cinacalcet 30 MG 17001/02 1700 AC 01/10 PO 1652 Clopidogrel Bisulfate 75 MG 01/05 AC 01/10 PO 1905 Cyanocobalamin 1,000 MCG DAILY 01/03 1000 AC 01/11 PO 1005 Docusate Sodium 100 MG DAILY 01/03 1000 AC 01/11 PO 1005 Dopamine HCl 400 MG ONCE ONE 01/11 0915 DC 01/11 Dextrose/Water 500 ML IV 01/11 0916 1008 Epoetin Jaron 4,000 UNIT MoWeFr PRN 01/06 1000 AC IV Epoetin Jaron 3,000 UNIT MoWeFr PRN 01/06 1000 AC IV Heparin Sodium 25,000 UNIT Q24H 01/10 0730 AC 01/11 (Porcine) IV 0817 Sodium Chloride 500 ML Hydrocortisone 50 MG Q8 01/10 0600 AC 01/11 Sodium Succinate IV 0509 Lidocaine/Prilocaine 1 GAVI DAILY PRN 01/02 1645 AC TOP Morphine Sulfate 2 MG Q4P PRN 01/02 1430 AC 01/11 IV 1005 Multivitamins 1 TAB DAILY 01/03 1000 AC 01/11 PO 1005 Norepinephrine 4 MG Q16H 01/04 1000 AC 01/11 Sodium Chloride 250 ML IV 0150 Polyethylene Glycol 17 GM DAILY 01/05 1349 AC 01/11 PO 1005 Senna 187 MG AT BEDTIME 01/05 2200 AC 01/10 PO 2157 Sevelamer Carbonate 2,400 MG WM 01/02 1700 AC 01/11 PO 1140 Results Pertinent Lab Results: Laboratory Tests 01/11 01/11 01/11 01/10 0657 0344 0053 1230 Chemistry Sodium (137 - 145 mmol/L) 134 L Potassium (3.5 - 5.1 mmol/L) 4.4 Chloride (98 - 107 mmol/L) 98 Carbon Dioxide (22 - 30 mmol/L) 26 Anion Gap (5 - 16) 11 BUN (9 - 20 mg/dL) 45 H Creatinine (0.7 - 1.2 mg/dL) 5.9 *H Estimated GFR (>60 ml/min) 10 L Glucose (65 - 99 mg/dL) 180 H Calcium (8.4 - 10.2 mg/dL) 8.7 Phosphorus (2.5 - 4.5 mg/dL) 4.1 Magnesium (1.6 - 2.3 mg/dL) 2.1 Total Bilirubin (0.2 - 1.3 mg/dL) 0.3 AST (17 - 59 U/L) 4 L ALT (21 - 72 U/L) 17 L Albumin (3.5 - 5.0 g/dL) 3.0 L Coagulation APTT (25 - 37 SEC) 78 H 52 H 69 H Hematology CBC w Diff MAN DIFF ORDERED WBC (4.8 - 10.8 /CUMM) 11.9 H RBC (4.70 - 6.10 /CUMM) 2.85 L Hgb (14.0 - 18.0 G/DL) 8.8 L Hct (42 - 52 %) 26.8 L MCV (80.0 - 94.0 FL) 94.1 H MCH (27.0 - 31.0 PG) 30.8 MCHC (33.0 - 37.0 G/DL) 32.8 L RDW (11.5 - 14.5 %) 16.6 H Plt Count (130 - 400 /CUMM) 262 MPV (7.4 - 10.4 FL) 9.1 Gran % (42.2 - 75.2 %) 86.5 H Lymphocytes % (20.5 - 51.1 %) 9.1 L Monocytes % (1.7 - 9.3 %) 3.9 Eosinophils % (0 - 5 %) 0.3 Basophils % (0.0 - 2.0 %) 0.2 Absolute Granulocytes (1.4 - 6.5 /CUMM) 10.3 H Segmented Neutrophils (42.2 - 75.2 %) 93 H Absolute Lymphocytes (1.2 - 3.4 /CUMM) 1.1 L Lymphocytes (20.5 - 51.1 %) 6 L Monocytes (1.7 - 9.3 %) 1 L Absolute Monocytes (0.10 - 0.60 /CUMM) 0.5 Absolute Eosinophils (0.0 - 0.7 /CUMM) 0 Absolute Basophils (0.0 - 0.2 /CUMM) 0 Platelet Estimate (ADEQUATE) ADEQUATE Anisocytosis 1+ Elliptocytes 1+ 01/10 01/09 01/09 0550 1800 1032 Chemistry Sodium (137 - 145 mmol/L) 136 L Potassium (3.5 - 5.1 mmol/L) 4.1 Chloride (98 - 107 mmol/L) 98 Carbon Dioxide (22 - 30 mmol/L) 26 Anion Gap (5 - 16) 11 BUN (9 - 20 mg/dL) 34 H Creatinine (0.7 - 1.2 mg/dL) 4.4 H Estimated GFR (>60 ml/min) 14 L Glucose (65 - 99 mg/dL) 163 H Calcium (8.4 - 10.2 mg/dL) 8.7 Phosphorus (2.5 - 4.5 mg/dL) 3.9 Magnesium (1.6 - 2.3 mg/dL) 2.1 Total Bilirubin (0.2 - 1.3 mg/dL) 0.3 AST (17 - 59 U/L) 7 L ALT (21 - 72 U/L) 21 Albumin (3.5 - 5.0 g/dL) 2.9 L Coagulation APTT (25 - 37 SEC) 91 H 80 H 56 H Hematology CBC w Diff MAN DIFF ORDERED WBC (4.8 - 10.8 /CUMM) 10.9 H RBC (4.70 - 6.10 /CUMM) 2.78 L Hgb (14.0 - 18.0 G/DL) 8.5 L Hct (42 - 52 %) 26.2 L MCV (80.0 - 94.0 FL) 94.0 MCH (27.0 - 31.0 PG) 30.6 MCHC (33.0 - 37.0 G/DL) 32.6 L RDW (11.5 - 14.5 %) 16.6 H Plt Count (130 - 400 /CUMM) 205 MPV (7.4 - 10.4 FL) 9.2 Gran % (42.2 - 75.2 %) 89.1 H Lymphocytes % (20.5 - 51.1 %) 7.2 L Monocytes % (1.7 - 9.3 %) 3.4 Eosinophils % (0 - 5 %) 0 Basophils % (0.0 - 2.0 %) 0.3 Absolute Granulocytes (1.4 - 6.5 /CUMM) 9.8 H Segmented Neutrophils (42.2 - 75.2 %) 89 H Absolute Lymphocytes (1.2 - 3.4 /CUMM) 0.8 L Lymphocytes (20.5 - 51.1 %) 8 L Monocytes (1.7 - 9.3 %) 3 Absolute Monocytes (0.10 - 0.60 /CUMM) 0.4 Absolute Eosinophils (0.0 - 0.7 /CUMM) 0 Absolute Basophils (0.0 - 0.2 /CUMM) 0 Platelet Estimate (ADEQUATE) ADEQUATE Polychromasia 1+ Hypochromic-Microcytic 1+ Poikilocytosis 1+ Ovalocytes 1+ Other Body Source Fld Total RBCs Counted (%) 100 0305 03 0300 1530 Chemistry Sodium (137 - 145 mmol/L) 133 L Potassium (3.5 - 5.1 mmol/L) 4.7 Chloride (98 - 107 mmol/L) 97 L Carbon Dioxide (22 - 30 mmol/L) 24 Anion Gap (5 - 16) 13 BUN (9 - 20 mg/dL) 48 H Creatinine (0.7 - 1.2 mg/dL) 6.7 *H Estimated GFR (>60 ml/min) 9 L Glucose (65 - 99 mg/dL) 174 H Calcium (8.4 - 10.2 mg/dL) 8.4 Phosphorus (2.5 - 4.5 mg/dL) 5.0 H Magnesium (1.6 - 2.3 mg/dL) 2.1 Total Bilirubin (0.2 - 1.3 mg/dL) 0.3 AST (17 - 59 U/L) 9 L ALT (21 - 72 U/L) 17 L Albumin (3.5 - 5.0 g/dL) 2.8 L Cortisol AM Sample (4.46 - 22.7 ug/dL) 56.0 H Coagulation APTT (25 - 37 SEC) 60 H 61 H Hematology CBC w Diff MAN DIFF ORDERED WBC (4.8 - 10.8 /CUMM) 7.5 RBC (4.70 - 6.10 /CUMM) 2.63 L Hgb (14.0 - 18.0 G/DL) 8.0 L Hct (42 - 52 %) 24.6 L MCV (80.0 - 94.0 FL) 93.6 MCH (27.0 - 31.0 PG) 30.4 MCHC (33.0 - 37.0 G/DL) 32.5 L RDW (11.5 - 14.5 %) 16.6 H Plt Count (130 - 400 /CUMM) 150 MPV (7.4 - 10.4 FL) 9.1 Gran % (42.2 - 75.2 %) 92.8 H Lymphocytes % (20.5 - 51.1 %) 6.3 L Monocytes % (1.7 - 9.3 %) 0.7 L Eosinophils % (0 - 5 %) 0.1 Basophils % (0.0 - 2.0 %) 0.1 Absolute Granulocytes (1.4 - 6.5 /CUMM) 7.0 H Segmented Neutrophils (42.2 - 75.2 %) 92 H Band Neutrophils (0.0 - 5.0 %) 1 Absolute Lymphocytes (1.2 - 3.4 /CUMM) 0.5 L Lymphocytes (20.5 - 51.1 %) 5 L Monocytes (1.7 - 9.3 %) 1 L Absolute Monocytes (0.10 - 0.60 /CUMM) 0.1 Eosinophils (0 - 5.0 %) 1 Absolute Eosinophils (0.0 - 0.7 /CUMM) 0 Absolute Basophils (0.0 - 0.2 /CUMM) 0 Platelet Estimate (ADEQUATE) ADEQUATE Poikilocytosis 1+ Basophilic Stippling RARE Anisocytosis 1+ Elliptocytes 1+ Imaging/Other Studies: None new
[2018-01-11 16:00] VITALS: BP 122/66
--- NOTE | 2018-01-11 17:12 | RADIOLOGY REPORT ---
EXAMINATION: XR PORTABLE CHEST CLINICAL INFORMATION: Desaturation. COMPARISON: Several priors. Most recent of . CT scan of 01/06/18. TECHNIQUE: Portable frontal view of the chest was obtained. FINDINGS: The left IJ CVL remains in stable position with the tip at the level of the cavoatrial junction. There are small to moderate bilateral pleural effusions which appear similar to the recent CT scan. Associated bibasilar atelectasis is stable. No new abnormality. Heart size is unremarkable. IMPRESSION: Stable appearance of small to moderate bilateral pleural effusions with associated bibasilar atelectasis.
[2018-01-11 19:22] LABS: PTT 78 SEC (25-37)
--- NOTE | 2018-01-11 20:05 | Event Note ---
Event Note Event Note: S: Pt desatted to 80s requiring 5-6L NC O2 , previously on RA B: Patient is a 57-year-old male with past medical history of CAD, ESRD on dialysis, recent above knee amputation A/R Probable etiology of his desaturation can be fluid overload, pneumonia, PE. Patient received dialysis 3L was removed and a chest x-ray was obtained after that which showed bilateral basilar atelectasis and [id number] pleural effusion. Did not show any opacity concerning for pneumonia. Patient is being anticoagulated with IV heparin for atrial fibrillation. The IV heparin was held for 2-3 hours yesterday for ozzing from AV fistula site. APTT theraputeic, PE is less likely. Attending Dr. Alvarenga was consulted and he believes that is probably due to low blood flow,no acute intervention necessary. Reevaluation.oxygen requirements are down to 3 L, no shortness of breath or any other symptoms reported.
[2018-01-12] VITALS: BP 100/60
--- NOTE | 2018-01-12 07:45 | PN- Resident CRCU ---
Cricket MARTINEZ,[facility] 01/12/18 0745: Subjective HPI/CRCU Issues: Patient seen and examined. Resting comfortably. Offers no complaints. Overnight event Patient desatted to 80s and was put on 6 L of nasal cannula before dialysis. In dialysis 3 L of fluid was taken off chest x-ray was done after dialysis which did not show any significant changes. Patient is back to room air. There is a possibility that patient is receiving extra volume since he has been started on dopamine drip. Fluid overload can be a possibile etiology for his desaturation, other possibility include PE unlikely patient is already anticoagulated with heparin, pneumonia unlikely x-ray did not show any capacity. Vitals Tmax 98.7, pulse rate ranging between 60 and sister 70s, blood pressure ranging 90s to 100/50s to 60s saturating 90s in on room air Labs WBC count normal, H/H stable platelet count within normal limits, sodium 133, BUN 33, creatinine 2.3. Glucose 161 blood fingersticks running high secondary to steroids Imaging CXR Stable appearance of small to moderate bilateral pleural effusions with associated bibasilar atelectasis. Interventions planned for today -Discussed with smoke inspector we are going to stop dopamine to observe his response if his map drops below 50 or SBP 70, will retsart -Repeat echocardiogram to reassess MVR/perforation -Chest x-ray planned for tomorrow before dialysis to access for CHF possibility related to MVR -Continue on hydrocortisone 50 mg every 8 hours -Continue IV heparin -insulin sliding scale for optimum control of hyperglycemia. Objective Vital Signs & I&O Last 8 Hrs of Vitals and I&O: Vital Signs Date Time Temp Pulse Resp B/P B/P Pulse O2 O2 Flow FiO2 Mean Ox Delivery Rate 01/12 0800 91 Room Air / 0800 98.7 70 20 104/58 91 Room Air /08 0549 62 94 /08 0400 95 CPAP / 0308 70 97 03/08 0010 70 93 03/08 0008 70 18 100/60 03/08 0000 93 CPAP 03/08 0000 97.6 70 18 100/60 93 CPAP /07 2223 73 94 03/07 2000 95 Nasal 2.0L Cannula 01/11 1600 97 Nasal 6.0L Cannula / 1600 97.8 66 18 122/66 97 Nasal 6.0L Cannula 01/11 1200 97.0 84 18 114/60 90 Room Air 01/11 1200 93 Nasal 6.0L Cannula Intake & Output 01/12 1600 01/12 0800 01/12 0000 Intake Total 3588 946 Output Total 3000 Balance 3588 -2054 Intake, 3000 Dialysate Intake, IV 538 466 Intake, Oral 50 480 Output, 3000 Dialysate Output, Urine 0 Exam General Appearance: well developed/nourished, no apparent distress Other Physical Findings: Head: atraumatic, normal appearance Respiratory: normal breath sounds, chest non-tender Cardiovascular: regular rate/rhythm, murmur Gastrointestinal: normal bowel sounds, soft, non-tender Extremities: R aka, Left AV fistula Cranial Nerves: normal hearing, normal speech Current Medications: Current Medications Sig/Bobo Start time Last Medication Dose Route Stop Time Status Admin Albumin Human 12.5 GM .Q30MIN PRN 01/02 1000 AC 01/04 IV 1058 Aspirin Buffered 81 MG DAILY 01/03 1000 AC 01/12 PO 1105 Atorvastatin Calcium 10 MG 01/05 1700 AC 01/11 PO 1659 Bisacodyl 5 MG DAILY 01/06 1345 AC 01/12 PO 1107 Cefazolin Sodium 2 GM 01/11 1000 AC 01/11 N/A 1 UNIT IV 1005 Cinacalcet 30 MG 01/02 1700 AC 01/11 PO 1659 Clopidogrel Bisulfate 75 MG 01/05 2000 AC 01/11 PO 2006 Cyanocobalamin 1,000 MCG DAILY 01/03 1000 AC 01/12 PO 1105 Docusate Sodium 100 MG DAILY 01/03 1000 AC 01/12 PO 1106 Dopamine HCl 400 MG ONCE ONE 01/11 2345 DC 01/12 Dextrose/Water 500 ML IV 01/11 2346 0008 Epoetin Jaron 4,000 UNIT MoWeFr PRN 01/06 1000 AC IV Epoetin Jaron 3,000 UNIT MoWeFr PRN 01/06 1000 AC IV Heparin Sodium 25,000 UNIT Q24H 01/10 0730 AC 01/12 (Porcine) IV 0309 Sodium Chloride 500 ML Hydrocortisone 50 MG Q8 01/10 0600 AC 01/12 Sodium Succinate IV 0558 Insulin Aspart 0 TIDAC 01/12 1200 AC SC Lidocaine/Prilocaine 1 GAVI DAILY PRN 01/02 1645 AC TOP Morphine Sulfate 2 MG Q4P PRN 01/02 1430 AC 01/12 IV 0828 Multivitamins 1 TAB DAILY 01/03 1000 AC 01/12 PO 1106 Norepinephrine 4 MG Q16H 01/04 1000 AC 01/11 Sodium Chloride 250 ML IV 0150 Polyethylene Glycol 17 GM DAILY 01/05 1349 AC 01/11 PO 1005 Senna 187 MG AT BEDTIME 01/05 2200 AC 01/11 PO 2152 Sevelamer Carbonate 2,400 MG WM 01/02 1700 AC 01/12 PO 1105 Impression/Plan Impression/Problem List Impression: Patient is a 57-year-old male with past medical history significant for peripheral arterial disease status post right [id number] amputation, end- stage renal disease on hemodialysis, coronary artery disease status post PCI and 1 drug-eluting stent in the left main circumflex artery (September 2017) and status post quadruple CABG (2006), diabetes, history of obstructive sleep apnea on CPAP at night, chronic anemia, most recent admission for septic arthritis and staph aureus sepsis, mitral valve endocarditis, osteomyelitis, history of C. difficile presented this admission after he was found to be hypotensive and tachycardic during dialysis with report of recent fatigue and dyspnea. 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 postop day 5, OR culture negative so far -Relapse of his endocarditis,SAM negative for vegetations, perforation of mitral valve -Seeding from bacteremia diskitis in setting of IE CT scan spine with IV contarst negative, (suboptimal study and pt not a candidate for MRI with gadolinium) -Lingular consolidation with air bronchograms which favors atelectasis, although pneumonia could not excluded on imaging -Infected lines s/p R.femoral TLC removal 2/2 MSSA bacteremia x2, and right IJ removal 2/2 fever spike and leukocytosis * S/p Proline placement in L- IJ on 01/05 on Pressors Goal MAP 55 to 60 * Monitor fever and WBC curve afebrile without white count on steriods * BCx2 seconds set negative BCx2 thirds set negative * Continue cefazolin 2g daily after dialysis 4 to 6 weeks Day 15 days since negative BC Cardiovascular #Atrial fibrillation: Pt paroxysmal afib and is itnermittently going in and out of A.fib 2/2 sepsis versus mitral valve regurgitation.Pt was started on Heparin on 12/28/2017. Heparin drip has been held intermittently for surgery and drop in H&H 2/2 to postop bleeding from surgical site * CBC stabe, continue heparin drip, was stopped intermittently on 01/11 because oozing from AV fistula #Hypotension: The patient has relative cortisol deficiency with cortisol level of 7.8. Patient remains on pressors. * Hydrocortisone 50mg IV q8 * MAP to 55- 60, Try to wean off pressor, patient is off Levaquin and dopamine Drip has been stopped #CAD s/p stent and CABG : Chronic and stable * Continue Aspirin, Clopidogrel, statin #Mitral regurgitation and possible perforation on SAM Possible mitral valve surgery as an outpatient * Echocardiogram today #Type II FL: Resolved. Peak troponin 0.23 on 12/27 Hemetology #Chronic Anemia H/H dropped from 9 to 6.8/21 on 01/05. Hemoglobin 8 to 9 is his baseline. He recieved 1 unit pRBCS postop on 01/03 and 1 units on 01/05. Likely secondary to bleeding from surgical site.CT scan negative for retroperitoneal bleed * H/H stable, continue to monitor #Leukocytosis resolved Metabolic #Transaminitis -Resolved Likely reactive postop. Statin was initially held and later restarted Alimentary #Dialysis diet #Continue Colace MiraLAX and docusate Nephrology #ESRD: Next dialysis 01/11 * Use 12.5 g of 25% IV albumin Q30 PRN for SBP <100 for BP maintaince during dialysis * Continue Epojen, Sensipar and Sevelamer DVT prophylaxis IV Heparin Problem List: 1. Renal failure Pain Ratin Tomorrow's Labs & Rationales: cbc icu bundle Plan DVT/Prophylaxis: Saul Toscano MD 01/12/18 1013: Attending MD Review Statement Attending Sign Off Attending Cosign Statement: I have: examined this patient, reviewed aval EMR data, personally reviewd images, discussd w/resident/PA/USER EXPERIENCE RESEARCHER, discussed mgmt plan w/whit, discussed mgmt plan w/CM, discussed mgmt plan w/pt, agreed w/resident/PA/USER EXPERIENCE RESEARCHER, amended to note. Other Findings: I, Shamika Lyons.D. have examined this patient, reviewed available EMR data, personally reviewed images, discussed with resident/PA/USER EXPERIENCE RESEARCHER, discussed management plan with housestaff and nursing staff, discussed managment plan all of healthcare providers, discussed management plan with patient and/or family, agreed with resident/PA/USER EXPERIENCE RESEARCHER. The past history and parts of the chart have been autopopulated. Impression 57 year old man * staph aureus sepsis * s/p aka * ESRD on HD * chronic anemia * a.fib on heparin gtt * s/p sam showing ? perforation in posterior leaflet without obvious clinical significance and will require surveillance * adrenal insufficiency Plan -plan for repeat cxr and ECHO, f/u cardiology recommendations -endocrinology appreciated, cont solucortef, will follow recs -titrate dopamine, off levophed, will cont to discuss valvular surgery timing -s/p proline -f/u nephrology, ID, vascular surgery, cardiology -HD per renal -map goal 50-55 -heparin gtt DVT prophylaxis at all times TTS 35 min
[2018-01-12 08:00] VITALS: BP 104/58
--- NOTE | 2018-01-12 08:07 | PN- Endocrinology ---
Assessment/Plan Endoscopy Assessment: The patient states he feels well today. He was dialyzed yesterday. He is still on dopamine. He is presently on Solu-Cortef 50 mg IV every 8 hours. His blood pressure this morning is 100/60. Plan: Suggest continue the present dose of Solu-Cortef. Hopefully will be able to taper him off his pressors soon. The patient's blood sugars are beginning to run high. Suggest place him on NovoLog coverage before meals only. NovoLog coverage before meals should be 80- 150 give 2 units NovoLog, 151-200 give 3 units NovoLog, 201-250 give 4 units NovoLog, 251-300 give 5 units NovoLog, 301-350 give 6 units NovoLog. No bedtime coverage should be given. Subjective Subjective: Feels improved Review of Systems Constitutional: Denies: chills, fever. Cardiovascular: Denies: chest pain. Respiratory: Denies: cough, short of breath. Gastrointestinal: Denies: abdominal pain, vomiting. Objective Last 24 Hrs of Vital Signs/I&O Vital Signs Date Time Temp Pulse Resp B/P B/P Pulse O2 O2 Flow FiO2 Mean Ox Delivery Rate 01/12 0549 62 94 / 0400 95 CPAP / 0308 70 97 03/08 0010 70 93 03/08 0008 70 18 100/60 03/08 0000 93 CPAP 03/08 0000 97.6 70 18 100/60 93 CPAP 03/07 2223 73 94 03/ 2000 95 Nasal 2.0L Cannula 01/11 1600 97 Nasal 6.0L Cannula / 1600 97.8 66 18 122/66 97 Nasal 6.0L Cannula 01/11 1200 97.0 84 18 114/60 90 Room Air / 1200 93 Nasal 6.0L Cannula / 1008 70 99/53 Intake & Output 01/12 1600 03/08 0800 03/08 0000 Intake Total 3588 946 Output Total 3000 Balance 3588 -2054 Intake, 3000 Dialysate Intake, IV 538 466 Intake, Oral 50 480 Output, 3000 Dialysate Output, Urine 0 Vital Signs Date Time Temp Pulse Resp B/P B/P Pulse O2 O2 Flow FiO2 Mean Ox Delivery Rate 01/12 0549 62 94 / 0400 95 CPAP / 0308 70 97 03/08 0010 70 93 03/08 0008 70 18 100/60 03/08 0000 93 CPAP 01/12 0000 97.6 70 18 100/60 93 CPAP 01/11 2223 73 94 01/11 2000 95 Nasal 2.0L Cannula 01/11 1600 97 Nasal 6.0L Cannula 01/11 1600 97.8 66 18 122/66 97 Nasal 6.0L Cannula 01/11 1200 97.0 84 18 114/60 90 Room Air 01/11 1200 93 Nasal 6.0L Cannula 01/11 1008 70 99/53 Intake & Output 01/12 1600 01/12 0800 01/12 0000 Intake Total 3588 946 Output Total 3000 Balance 3588 -2054 Intake, 3000 Dialysate Intake, IV 538 466 Intake, Oral 50 480 Output, 3000 Dialysate Output, Urine 0 Physical Exam General Appearance: alert, awake, comfortable Head: normal appearance Respiratory: normal breath sounds Cardiovascular: regular rate/rhythm Abdomen: normal bowel sounds Current Medications: Current Medications Sig/Bobo Start time Last Medication Dose Route Stop Time Status Admin Albumin Human 12.5 GM .Q30MIN PRN 01/02 1000 AC 01/04 IV 1058 Aspirin Buffered 81 MG DAILY 01/03 1000 AC 01/11 PO 1005 Atorvastatin Calcium 10 MG 01/05 1700 AC 01/11 PO 1659 Bisacodyl 5 MG DAILY 01/06 1345 AC 01/11 PO 1005 Cefazolin Sodium 2 GM 01/11 1000 AC 01/11 N/A 1 UNIT IV 1005 Cinacalcet 30 MG 01/02 1700 AC 01/11 PO 1659 Clopidogrel Bisulfate 75 MG 01/05 2000 AC 01/11 PO 2006 Cyanocobalamin 1,000 MCG DAILY 01/03 1000 AC 01/11 PO 1005 Docusate Sodium 100 MG DAILY 01/03 1000 AC 01/11 PO 1005 Dopamine HCl 400 MG ONCE ONE 01/11 2345 DC 01/12 Dextrose/Water 500 ML IV 01/11 2346 0008 Dopamine HCl 400 MG ONCE ONE 01/11 915 DC 01/11 Dextrose/Water 500 ML IV 01/11 0916 1008 Epoetin Jaron 4,000 UNIT MoWeFr PRN 01/06 1000 AC IV Epoetin Jaron 3,000 UNIT MoWeFr PRN 01/06 1000 AC IV Heparin Sodium 25,000 UNIT Q24H 01/10 0730 AC 01/12 (Porcine) IV 0309 Sodium Chloride 500 ML Hydrocortisone 50 MG Q8 01/10 0600 AC 01/12 Sodium Succinate IV 0558 Lidocaine/Prilocaine 1 GAVI DAILY PRN 01/02 1645 [facility] Morphine Sulfate 2 MG Q4P PRN 01/02 1430 AC 01/11 IV 2159 Multivitamins 1 TAB DAILY 01/03 1000 AC 01/11 PO 1005 Norepinephrine 4 MG Q16H 01/04 1000 AC 01/11 Sodium Chloride 250 ML IV 0150 Polyethylene Glycol 17 GM DAILY 01/05 1349 AC 01/11 PO 1005 Senna 187 MG AT BEDTIME 01/05 2200 AC 01/11 PO 2152 Sevelamer Carbonate 2,400 MG WM 01/02 1700 AC 01/11 PO 1659 Results Pertinent Lab/Brendan Results: Laboratory Tests 01/12 01/11 0700 1900 Chemistry Sodium Pending Potassium Pending Chloride Pending Carbon Dioxide Pending Anion Gap Pending BUN Pending Creatinine Pending Glucose Pending Calcium Pending Phosphorus Pending Magnesium Pending Total Bilirubin Pending AST Pending ALT Pending Albumin Pending Coagulation APTT (25 - 37 SEC) Pending 78 H Hematology CBC w Diff Pending WBC Pending RBC Pending Hgb Pending Hct Pending MCV Pending MCH Pending MCHC Pending RDW Pending Plt Count Pending MPV Pending
[2018-01-12 08:19] LABS: ABSOLUTE BASOPHIL COUNT 0 /CUMM (0.0-0.2); ABSOLUTE EOSINOPHIL COUNT 0 /CUMM (0.0-0.7); ABSOLUTE GRANULOCYTE CT 6.3 /CUMM (1.4-6.5); ABSOLUTE LYMPH COUNT 1.6 /CUMM (1.2-3.4); ABSOLUTE MONOCYTE COUNT 0.4 /CUMM (0.10-0.60); BASOPHIL % 0.4 % (0.0-2.0); EOSINOPHIL % 0.3 % (0-5); GRANULOCYTE % 75.4 % (42.2-75.2); HEMATOCRIT 27.5 % (42-52); MEAN CORPUSCULAR HGB 30.8 PG (27.0-31.0); MEAN CORPUSCULAR HGB CONC 32.8 G/DL (33.0-37.0); MEAN CORPUSCULAR VOLUME 93.9 FL (80.0-94.0); MEAN PLATELET VOLUME 9.2 FL (7.4-10.4); RBC DISTRIBUTION WIDTH 16.6 % (11.5-14.5); RED BLOOD CELL CT 2.93 /CUMM (4.70-6.10); WHITE BLOOD CELL COUNT 8.3 /CUMM (4.8-10.8)
[2018-01-12 08:41] LABS: PTT 90 SEC (25-37)
--- NOTE | 2018-01-12 09:17 | PN- Cardiology ---
Subjective Subjective: Telemetry reviewed. Sinus rhythm throughout. Patient mentating beautifully. Has full comprehension of his underlying problem. Admits to no symptoms. Objective Vital Signs and I&Os Vital Signs Date Time Temp Pulse Resp B/P B/P Pulse O2 O2 Flow FiO2 Mean Ox Delivery Rate / 0549 62 94 03/08 0400 95 CPAP 03/08 0308 70 97 03/08 0010 70 93 03/08 0008 70 18 100/60 03/08 0000 93 CPAP 03/08 0000 97.6 70 18 100/60 93 CPAP 03/ 2223 73 94 03/ 2000 95 Nasal 2.0L Cannula 01/11 1600 97 Nasal 6.0L Cannula / 1600 97.8 66 18 122/66 97 Nasal 6.0L Cannula 01/11 1200 97.0 84 18 114/60 90 Room Air / 1200 93 Nasal 6.0L Cannula / 1008 70 99/53 Intake & Output / 1600 03/08 0800 03/08 0000 / 1600 / 0800 03/ 0000 Intake Total 3588 946 1518.4 380 522.8 Output Total 3000 Balance 3588 -2054 1518.4 380 522.8 Intake, 3000 Dialysate Intake, IV 340 921 2071.4 330 222.8 Intake, Oral 50 480 480 50 300 Output, 3000 Dialysate Output, Urine 0 Physical Exam: On physical exam he appeared comfortable Head normocephalic atraumatic Eyes sclera mild pallor anicteric conjunctiva mild pallor extraocular muscles normal Neck no jugular venous distention no thyroid masses no palpable nodes no carotid bruits Chest lungs were clear bilaterally Heart regular rhythm grade 2/6 midsystolic murmur Abdomen soft no organomegaly nontender Extremities amputation Neurological no gross motor or sensory deficits Current Medications: Current Medications Sig/Bobo Start time Last Medication Dose Route Stop Time Status Admin Albumin Human 12.5 GM .Q30MIN PRN 01/02 1000 AC 01/04 IV 1058 Aspirin Buffered 81 MG DAILY 01/03 1000 AC 01/11 PO 1005 Atorvastatin Calcium 10 MG 1700 01/05 1700 AC 01/11 PO 1659 Bisacodyl 5 MG DAILY 01/06 1345 AC 01/11 PO 1005 Cefazolin Sodium 2 GM 01/11 1000 AC 01/11 N/A 1 UNIT IV 1005 Cinacalcet 30 MG 1700 01/02 1700 AC 01/11 PO 1659 Clopidogrel Bisulfate 75 MG 01/05 AC 01/11 PO 2006 Cyanocobalamin 1,000 MCG DAILY 01/03 1000 AC 01/11 PO 1005 Docusate Sodium 100 MG DAILY 01/03 1000 AC 01/11 PO 1005 Dopamine HCl 400 MG ONCE ONE 01/11 2345 DC 01/12 Dextrose/Water 500 ML IV 01/11 234 0008 Dopamine HCl 400 MG ONCE ONE 01/11 0915 DC 01/11 Dextrose/Water 500 ML IV 01/11 0916 1008 Epoetin Jaron 4,000 UNIT MoWeFr PRN 01/06 1000 AC IV Epoetin Jaron 3,000 UNIT MoWeFr PRN 01/06 1000 AC IV Heparin Sodium 25,000 UNIT Q24H 01/10 0730 AC 01/12 (Porcine) IV 0309 Sodium Chloride 500 ML Hydrocortisone 50 MG Q8 01/10 0600 AC 01/12 Sodium Succinate IV 0558 Lidocaine/Prilocaine 1 GAVI DAILY PRN 01/02 1645 AC TOP Morphine Sulfate 2 MG Q4P PRN 01/02 1430 AC 01/12 IV 0828 Multivitamins 1 TAB DAILY 01/03 1000 AC 01/11 PO 1005 Norepinephrine 4 MG Q16H 01/04 1000 AC 01/11 Sodium Chloride 250 ML IV 0150 Polyethylene Glycol 17 GM DAILY 01/05 1349 AC 01/11 PO 1005 Senna 187 MG AT BEDTIME 01/05 2200 AC 01/11 PO 2152 Sevelamer Carbonate 2,400 MG WM 01/02 1700 AC 01/12 PO 0828 Results Last 48 Hrs of Labs/Mics: Laboratory Tests 01/12/18 0700: Anion Gap 8, Estimated GFR 14 L, Glucose 161 H, Calcium 8.4, Phosphorus 3.1, Magnesium 2.0, Total Bilirubin 0.4, AST 5 L, ALT 21, Albumin 2.8 L, APTT 90 H , CBC w Diff Pending, WBC Pending, RBC Pending, Hgb Pending, Hct Pending, MCV Pending, MCH Pending, MCHC Pending, RDW Pending, Plt Count Pending, MPV Pending 01/11/18 1900: APTT 78 H 01/11/18 0657: APTT 78 H 01/11/18 0344: Anion Gap 11, Estimated GFR 10 L, Glucose 180 H, Calcium 8.7, Phosphorus 4.1, Magnesium 2.1, Total Bilirubin 0.3, AST 4 L, ALT 17 L, Albumin 3.0 L, CBC w Diff MAN DIFF ORDERED, RBC 2.85 L, MCV 94.1 H, MCH 30.8, MCHC 32.8 L, RDW 16.6 H, MPV 9.1, Gran % 86.5 H, Lymphocytes % 9.1 L, Monocytes % 3.9, Eosinophils % 0.3, Basophils % 0.2, Absolute Granulocytes 10.3 H, Segmented Neutrophils 93 H, Absolute Lymphocytes 1.1 L, Lymphocytes 6 L, Monocytes 1 L , Absolute Monocytes 0.5, Absolute Eosinophils 0, Absolute Basophils 0, Platelet Estimate ADEQUATE, Anisocytosis 1+, Elliptocytes 1+ 01/11/18 0053: APTT 52 H 01/10/18 1230: APTT 69 H Assessment/Plan Assessment/Plan In summary this 57-year-old gentleman has the following problems 1. Coronary disease by history status post coronary bypass surgery 2006 with complex PCI to the left main into the circumflex September 2017 with normal LV function 2. Hx of Hypertension, currently hypotensive with questionable adrenal insufficiency for his hypertension he is being treated with IV dopamine. 3. Peripheral arterial disease status post prior amputation now S/P right AKA 4. End-stage renal disease on dialysis 5. 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 Repeat YULIA to 01/02/18 was negative for vegetations; however, with severe mitral regurgitation and possible perforation 6. Diabetes 7. Fever and chills with hypotension most likely secondary to sepsis. 8. Elevated troponins, minimal, not due to ACS 9. Intermittent atrial fibrillation possibly due to sepsis, he is on IV heparin He is being treated for bacteremia probably related to an infected stump. He is being treated pressors based on a numerical mean arterial pressure. He remains mentating even with his mean arterial pressure his is around 50. I'm suspicious it probably adrenal insufficiency may be more responsive for his "low blood pressure". He is not behaving like he isn't septic and cardiogenic shock. He is on room air at the moment. I will recheck his echocardiogram, see if maintenance steroids can be increased, and obtain a chest x-ray prior to next dialysis. Continue telemetry? Yes
[2018-01-12 09:46] LABS: PLATELET COUNT 213 /CUMM (130-400)
--- NOTE | 2018-01-12 11:08 | PN- Nephrology ---
Assessment/Plan Nephrology Assessment: ESRD - Finally off pressors. Breathing comfortably. No need for dialysis today. Plan for dialysis tomorrow. May need dialysis on Tuesday depending on clinical status. Anemia - Epogen increased from 5000U TIW (outpatient dose) to 7000U TIW. MSSA bacteremia - Cultures neg. CT C/A/P unrevealing of source - ultimately thought to be stump. ID following - remains on abx - likely to just complete 4- 6 week course. Suggestion: -HD tomorrow Please call [phone] with ?'s Subjective Subjective: HD performed yesterday Post-HD x-ray with low lung volumes and effusions That being said, off pressors and says that breathing is OK Objective Vital Signs and I&Os Vital Signs Date Time Temp Pulse Resp B/P B/P Pulse O2 O2 Flow FiO2 Mean Ox Delivery Rate 01/12 0800 91 Room Air / 0800 98.7 70 20 104/58 91 Room Air / 0549 62 94 / 0400 95 CPAP / 0308 70 97 03/08 0010 70 93 /08 0008 70 18 100/60 03/08 0000 93 CPAP 03/08 0000 97.6 70 18 100/60 93 CPAP 03/07 2223 73 94 03/ 2000 95 Nasal 2.0L Cannula / 1600 97 Nasal 6.0L Cannula / 1600 97.8 66 18 122/66 97 Nasal 6.0L Cannula / 1200 97.0 84 18 114/60 90 Room Air / 1200 93 Nasal 6.0L Cannula Intake & Output 01/12 1600 /08 0400 / 1600 /07 0400 / 1600 03/ 0400 Intake Total 3588 946 1898.4 522.8 1091 924 Output Total 3000 0 Balance 3588 -2054 1898.4 522.8 1091 924 Intake, 3000 Dialysate Intake, IV 626 928 1254.4 222.8 851 574 Intake, Oral 50 480 530 300 240 350 Number 0 Bowel Movements Output, 3000 Dialysate Output, Urine 0 0 Physical Exam: Gen - OK appearing HEENT - supple CV - RRR, no m/r/g Chest - decreased BS at bases Abd - soft, NTND Ext - +edema, s/p RLE amputation; LLA AVF +thrill/+bruit Neuro - AOX3, grossly nonfocal Current Medications: Current Medications Sig/Bobo Start time Last Medication Dose Route Stop Time Status Admin Albumin Human 12.5 GM .Q30MIN PRN 01/02 1000 AC 01/04 IV 1058 Aspirin Buffered 81 MG DAILY 01/03 1000 AC 01/11 PO 1005 Atorvastatin Calcium 10 MG 17001/05 1700 AC 01/11 PO 1659 Bisacodyl 5 MG DAILY 01/06 1345 AC 01/11 PO 1005 Cefazolin Sodium 2 GM 01/11 1000 AC 01/11 N/A 1 UNIT IV 1005 Cinacalcet 30 MG 01/02 1700 AC 01/11 PO 1659 Clopidogrel Bisulfate 75 MG 01/05 AC 01/11 PO 2006 Cyanocobalamin 1,000 MCG DAILY 01/03 1000 AC 01/11 PO 1005 Docusate Sodium 100 MG DAILY 01/03 1000 AC 01/11 PO 1005 Dopamine HCl 400 MG ONCE ONE 01/11 2345 DC 01/12 Dextrose/Water 500 ML IV 01/11 2346 0008 Epoetin Jaron 4,000 UNIT MoWeFr PRN 01/06 1000 AC IV Epoetin Jaron 3,000 UNIT MoWeFr PRN 01/06 1000 AC IV Heparin Sodium 25,000 UNIT Q24H 01/10 0730 AC 01/12 (Porcine) IV 0309 Sodium Chloride 500 ML Hydrocortisone 50 MG Q8 01/10 0600 AC 01/12 Sodium Succinate IV 0558 Insulin Aspart 0 TIDAC 01/12 1200 AC SC Lidocaine/Prilocaine 1 GAVI DAILY PRN 01/02 1645 AC TOP Morphine Sulfate 2 MG Q4P PRN 01/02 1430 AC 01/12 IV 0828 Multivitamins 1 TAB DAILY 01/03 1000 AC 01/11 PO 1005 Norepinephrine 4 MG Q16H 01/04 1000 AC 01/11 Sodium Chloride 250 ML IV 0150 Polyethylene Glycol 17 GM DAILY 01/05 1349 AC 01/11 PO 1005 Senna 187 MG AT BEDTIME 01/05 2200 AC 01/11 PO 2152 Sevelamer Carbonate 2,400 MG WM 01/02 1700 AC 01/12 PO 0828 Results Pertinent Lab Results: Laboratory Tests 01/12 01/11 01/11 0700 1900 0657 Chemistry Sodium (137 - 145 mmol/L) 133 L Potassium (3.5 - 5.1 mmol/L) 3.9 Chloride (98 - 107 mmol/L) 99 Carbon Dioxide (22 - 30 mmol/L) 27 Anion Gap (5 - 16) 8 BUN (9 - 20 mg/dL) 33 H Creatinine (0.7 - 1.2 mg/dL) 4.3 H Estimated GFR (>60 ml/min) 14 L Glucose (65 - 99 mg/dL) 161 H Calcium (8.4 - 10.2 mg/dL) 8.4 Phosphorus (2.5 - 4.5 mg/dL) 3.1 Magnesium (1.6 - 2.3 mg/dL) 2.0 Total Bilirubin (0.2 - 1.3 mg/dL) 0.4 AST (17 - 59 U/L) 5 L ALT (21 - 72 U/L) 21 Albumin (3.5 - 5.0 g/dL) 2.8 L Coagulation APTT (25 - 37 SEC) 90 H 78 H 78 H Hematology CBC w Diff NO MAN DIFF REQ WBC (4.8 - 10.8 /CUMM) 8.3 RBC (4.70 - 6.10 /CUMM) 2.93 L Hgb (14.0 - 18.0 G/DL) 9.0 L Hct (42 - 52 %) 27.5 L MCV (80.0 - 94.0 FL) 93.9 MCH (27.0 - 31.0 PG) 30.8 MCHC (33.0 - 37.0 G/DL) 32.8 L RDW (11.5 - 14.5 %) 16.6 H Plt Count (130 - 400 /CUMM) 213 MPV (7.4 - 10.4 FL) 9.2 Gran % (42.2 - 75.2 %) 75.4 H Lymphocytes % (20.5 - 51.1 %) 18.9 L Monocytes % (1.7 - 9.3 %) 5.0 Eosinophils % (0 - 5 %) 0.3 Basophils % (0.0 - 2.0 %) 0.4 Absolute Granulocytes (1.4 - 6.5 /CUMM) 6.3 Absolute Lymphocytes (1.2 - 3.4 /CUMM) 1.6 Absolute Monocytes (0.10 - 0.60 /CUMM) 0.4 Absolute Eosinophils (0.0 - 0.7 /CUMM) 0 Absolute Basophils (0.0 - 0.2 /CUMM) 0 01/11 01/11 01/10 0344 0053 1230 Chemistry Sodium (137 - 145 mmol/L) 134 L Potassium (3.5 - 5.1 mmol/L) 4.4 Chloride (98 - 107 mmol/L) 98 Carbon Dioxide (22 - 30 mmol/L) 26 Anion Gap (5 - 16) 11 BUN (9 - 20 mg/dL) 45 H Creatinine (0.7 - 1.2 mg/dL) 5.9 *H Estimated GFR (>60 ml/min) 10 L Glucose (65 - 99 mg/dL) 180 H Calcium (8.4 - 10.2 mg/dL) 8.7 Phosphorus (2.5 - 4.5 mg/dL) 4.1 Magnesium (1.6 - 2.3 mg/dL) 2.1 Total Bilirubin (0.2 - 1.3 mg/dL) 0.3 AST (17 - 59 U/L) 4 L ALT (21 - 72 U/L) 17 L Albumin (3.5 - 5.0 g/dL) 3.0 L Coagulation APTT (25 - 37 SEC) 52 H 69 H Hematology CBC w Diff MAN DIFF ORDERED WBC (4.8 - 10.8 /CUMM) 11.9 H RBC (4.70 - 6.10 /CUMM) 2.85 L Hgb (14.0 - 18.0 G/DL) 8.8 L Hct (42 - 52 %) 26.8 L MCV (80.0 - 94.0 FL) 94.1 H MCH (27.0 - 31.0 PG) 30.8 MCHC (33.0 - 37.0 G/DL) 32.8 L RDW (11.5 - 14.5 %) 16.6 H Plt Count (130 - 400 /CUMM) 262 MPV (7.4 - 10.4 FL) 9.1 Gran % (42.2 - 75.2 %) 86.5 H Lymphocytes % (20.5 - 51.1 %) 9.1 L Monocytes % (1.7 - 9.3 %) 3.9 Eosinophils % (0 - 5 %) 0.3 Basophils % (0.0 - 2.0 %) 0.2 Absolute Granulocytes (1.4 - 6.5 /CUMM) 10.3 H Segmented Neutrophils (42.2 - 75.2 %) 93 H Absolute Lymphocytes (1.2 - 3.4 /CUMM) 1.1 L Lymphocytes (20.5 - 51.1 %) 6 L Monocytes (1.7 - 9.3 %) 1 L Absolute Monocytes (0.10 - 0.60 /CUMM) 0.5 Absolute Eosinophils (0.0 - 0.7 /CUMM) 0 Absolute Basophils (0.0 - 0.2 /CUMM) 0 Platelet Estimate (ADEQUATE) ADEQUATE Anisocytosis 1+ Elliptocytes 1+ 01/10 03 0550 1800 Chemistry Sodium (137 - 145 mmol/L) 136 L Potassium (3.5 - 5.1 mmol/L) 4.1 Chloride (98 - 107 mmol/L) 98 Carbon Dioxide (22 - 30 mmol/L) 26 Anion Gap (5 - 16) 11 BUN (9 - 20 mg/dL) 34 H Creatinine (0.7 - 1.2 mg/dL) 4.4 H Estimated GFR (>60 ml/min) 14 L Glucose (65 - 99 mg/dL) 163 H Calcium (8.4 - 10.2 mg/dL) 8.7 Phosphorus (2.5 - 4.5 mg/dL) 3.9 Magnesium (1.6 - 2.3 mg/dL) 2.1 Total Bilirubin (0.2 - 1.3 mg/dL) 0.3 AST (17 - 59 U/L) 7 L ALT (21 - 72 U/L) 21 Albumin (3.5 - 5.0 g/dL) 2.9 L Coagulation APTT (25 - 37 SEC) 91 H 80 H Hematology CBC w Diff MAN DIFF ORDERED WBC (4.8 - 10.8 /CUMM) 10.9 H RBC (4.70 - 6.10 /CUMM) 2.78 L Hgb (14.0 - 18.0 G/DL) 8.5 L Hct (42 - 52 %) 26.2 L MCV (80.0 - 94.0 FL) 94.0 MCH (27.0 - 31.0 PG) 30.6 MCHC (33.0 - 37.0 G/DL) 32.6 L RDW (11.5 - 14.5 %) 16.6 H Plt Count (130 - 400 /CUMM) 205 MPV (7.4 - 10.4 FL) 9.2 Gran % (42.2 - 75.2 %) 89.1 H Lymphocytes % (20.5 - 51.1 %) 7.2 L Monocytes % (1.7 - 9.3 %) 3.4 Eosinophils % (0 - 5 %) 0 Basophils % (0.0 - 2.0 %) 0.3 Absolute Granulocytes (1.4 - 6.5 /CUMM) 9.8 H Segmented Neutrophils (42.2 - 75.2 %) 89 H Absolute Lymphocytes (1.2 - 3.4 /CUMM) 0.8 L Lymphocytes (20.5 - 51.1 %) 8 L Monocytes (1.7 - 9.3 %) 3 Absolute Monocytes (0.10 - 0.60 /CUMM) 0.4 Absolute Eosinophils (0.0 - 0.7 /CUMM) 0 Absolute Basophils (0.0 - 0.2 /CUMM) 0 Platelet Estimate (ADEQUATE) ADEQUATE Polychromasia 1+ Hypochromic-Microcytic 1+ Poikilocytosis 1+ Ovalocytes 1+ Other Body Source Fld Total RBCs Counted (%) 100 Imaging/Other Studies: EXAM TYPE: RAD - XRY-PORTABLE CHEST XRAY EXAMINATION: XR PORTABLE CHEST CLINICAL INFORMATION: Desaturation. COMPARISON: Several priors. Most recent of . CT scan of 01/06/18. TECHNIQUE: Portable frontal view of the chest was obtained. FINDINGS: The left IJ CVL remains in stable position with the tip at the level of the cavoatrial junction. There are small to moderate bilateral pleural effusions which appear similar to the recent CT scan. Associated bibasilar atelectasis is stable. No new abnormality. Heart size is unremarkable. IMPRESSION: Stable appearance of small to moderate bilateral pleural effusions with associated bibasilar atelectasis.
[2018-01-12 16:00] VITALS: BP 96/60
--- NOTE | 2018-01-12 17:02 | CT SCAN REPORT ---
EXAMINATION: CT HEAD WITHOUT CONTRAST CLINICAL INFORMATION: Headache. Blurry vision. COMPARISON: None TECHNIQUE: Contiguous axial imaging was performed from the skull base to vertex without intravenous administration of contrast. DLP: 315.63 mGy-cm FINDINGS: There is no intracranial hemorrhage. No evidence of acute/subacute cerebral or cerebellar infarction. There is a 5 mm low-attenuation focus within the subcortical white matter of the left frontal lobe. The focus appears to have CSF attenuation and likely represents a benign CSF space. There is a similar-appearing low-attenuation focus within the right parietal lobe measuring 4 mm. Again this likely represents a benign CSF space. There is no extra-axial fluid collection. There is no midline shift or mass effect. The ventricles are normal in size. The right ocular lens is surgically absent. The orbits are otherwise unremarkable. The calvarium is intact. Visualized paranasal sinuses and mastoid air cells are clear. IMPRESSION: No acute intracranial pathology. Benign-appearing CSF spaces within the left frontal and right parietal lobes.
--- NOTE | 2018-01-12 17:37 | Event Note ---
Event Note Event Note: Nursing staff reported that the patient has headache with visual symptoms approximately 4:10 PM. He was evaluated by the internal audit director and was able to count fingers. I evaluated the patient within a few minutes at that time he reported that he can't see me clearly, also was not able to count fingers during my exam. He reported having pounding headache and pain above his eyes. He states that he has never experienced this type of headache and visual symptoms. He does have baseline retinopathy in the right eye. His visual field is limited. Otherwise cranial nerve exam unremarkable. Bedside funduscopy exam was limited. Stroke alert was called and head CT was ordered to rule out any hemorrhage. Patient was on IV heparin for paroxysmal atrial fibrillation. Head CT noted to be unremarkable. After returning from CT scan, his symptoms including his vision improved and was almost back to his baseline. He was evaluated by neurologist who recommended to obtain ophthalmology consult. Of note, patient was maintained on IV pressors with Systolic blood pressure in 130s-140s until earlier today when his pressors were discontinued. His blood pressure dropped to 80 systolic however his map was 75. His baseline blood pressure reported to be systolic 90s. Called the answering service of ophthalmologistl on-call for consult today. Attending, Dr. Alvarenga made aware. Will monitor closely. Update 7:20 PM: Payable Processor on-call, Dr. De Jesus called ICU; he wanted me to ask the following questions from the patient. 1-as the patient ever underwent laser therapy for his retinopathy 2-Is patient's vision back to the baseline. Seen and evaluated the patient. His blurred vision and headache have resolved; his vision is now back to his baseline. The patient reported that he is being followed for retinopathy in his right eye by eye physicians and surgeons in [place] he has been using some eyedrops unsure of the name. He states that he underwent laser therapy "years ago", Unsure of the exact timing. Updated Dr. De Jesus, he suggests that patient's symptoms were likely secondary to transient ischemic event in vulnerable eyes, with change in blood pressure. He states that this symptom is rather common in patients with ischemic retina when having fluctuating blood pressure. He is recommending to call him if patient's symptoms occur or worsen. ([phone]) Updated the patient, present at bedside. Instructed the patient to inform us as soon as he experiences headache or blurred vision. Updated 10:30 PM: Seen and examined the patient, no further episode of headache or blurred vision.
--- NOTE | 2018-01-12 17:54 | Cons- Neurology ---
General Information and HPI Consulting Request Date of Consult: 01/12/18 Requested By: Saul Alvarenga MD Source of Information: patient, old records Exam Limitations: clinical condition History of Present Illness: 57-year-old man with complex medical problems including known diabetic retinopathy with low vision suddenly developed worsening of vision followed within a few minutes by a moderately severe headache. He is fully anticoagulated and was sent emergently for a head CT scan to rule out hemorrhage but the scan is unremarkable. The first resident evaluating him reports that he could count fingers still but when the second resident arrived he was no longer able. Having returned from the CT scan he reports that vision is improving but not yet back to baseline. Headache is improving as well. He denies any prior sudden episodes of vision loss, had no associated eye pain, loss was bilateral rather than monocular. He has had episodic headaches of similar nature in the past. He denies any associated lateralized weakness or new numbness, speech impairment , no alteration in consciousness was reported. Past history of long-standing diabetes with retinopathy, nephropathy and neuropathy, coronary artery disease, paroxysmal atrial fibrillation, he was admitted in October for staph aureus sepsis with mitral valve endocarditis. Allergies/Medications Allergies: Coded Allergies: midodrine (HIVES 12/26/17) Home Med List: Aspirin (Ecotrin*) 81 MG TABLET.DR 1 TAB PO DAILY HEART/BLOOD (Reported) Atorvastatin Calcium 10 MG TABLET 1 TAB PO DAILY CHOLESTEROL (Reported) Cholecalciferol (Vitamin D3) (Vitamin D3) 2,000 UNIT TABLET 3 TAB PO DAILY VITAMIN SUPPORT (Reported) Cinacalcet HCl (Sensipar) 30 MG TABLET 1 TAB PO DAILY KIDNEYS (Reported) Clopidogrel Bisulfate (Clopidogrel) 75 MG TABLET 1 TAB PO DAILY BLOOD THINNER (Reported) Cyanocobalamin (Vitamin B-12) 1,000 MCG TABLET 1 TAB PO DAILY VITAMIN SUPPORT (Reported) Docusate Sodium 100 MG CAPSULE 1 CAP PO DAILY CONSTIPATION (Reported) Famotidine (Pepcid AC) 20 MG TABLET 1 TAB PO DAILY PRN GI (Reported) Folic Acid/Vit Bcomp,C (Dialyvite 800 Tablet) 0.8 MG TABLET 1 TAB PO DAILY VITAMIN SUPPORT (Reported) Lisinopril 2.5 MG TABLET 1 TAB PO DAILY HEART (Reported) Metoprolol Tartrate 25 MG TABLET 1 MG PO BID HEART/BP (Reported) Metoprolol Tartrate 25 MG TABLET 1 TAB PO Tuesday HEART/BP ( Reported) Metoprolol Tartrate (Lopressor) 50 MG TABLET 1 TAB PO BID HEART (Reported) Multivitamin (Daily Multiple Vitamin) 1 EACH TABLET 1 TAB PO DAILY VITAMIN SUPPORT (Reported) Meade-3 Acid Ethyl Esters (Lovaza) 1 GRAM CAPSULE 1 CAP PO BID CHOLESTEROL ( Reported) Oxycodone HCl/Acetaminophen (Percocet 5-325 MG Tablet) 5 MG-325 MG TABLET 1 TAB PO Q6-PRN PRN PAIN (Reported) Sennosides (Senokot) 8.6 MG TABLET 1-2 TAB PO QPM CONSTIPATION (Reported) Sevelamer Carbonate (Renvela) 800 MG TABLET 1 TAB PO WM KIDNEYS (Reported) Current Medications: Current Medications Sig/Bobo Start time Last Medication Dose Route Stop Time Status Admin Acetaminophen 1,000 MG ONCE ONE 01/12 1545 DC 01/12 N/A 1 UNIT IV 01/12 1559 1540 Albumin Human 12.5 GM .Q30MIN PRN 01/02 1000 AC 01/04 IV 1058 Aspirin Buffered 81 MG DAILY 01/03 1000 AC 01/12 PO 1105 Atorvastatin Calcium 10 MG 01/05 1700 AC 01/12 PO 1706 Bisacodyl 5 MG DAILY 01/06 1345 AC 01/12 PO 1107 Cefazolin Sodium 2 GM 01/11 1000 AC 01/11 N/A 1 UNIT IV 1005 Cinacalcet 30 MG 01/02 1700 AC 01/12 PO 1707 Clopidogrel Bisulfate 75 MG 01/05 2000 AC 01/11 PO 2006 Cyanocobalamin 1,000 MCG DAILY 01/03 1000 AC 01/12 PO 1105 Docusate Sodium 100 MG DAILY 01/03 1000 AC 01/12 PO 1106 Dopamine HCl 400 MG ONCE ONE 01/11 2345 DC 01/12 Dextrose/Water 500 ML IV 01/11 2346 0008 Epoetin Jaron 4,000 UNIT MoWeFr PRN 01/06 1000 AC IV Epoetin Jaron 3,000 UNIT MoWeFr PRN 01/06 1000 AC IV Heparin Sodium 25,000 UNIT Q24H 01/10 0730 AC 01/12 (Porcine) IV 1522 Sodium Chloride 500 ML Hydrocortisone 50 MG Q8 01/10 0600 AC 01/12 Sodium Succinate IV 1522 Insulin Aspart 0 TIDAC 01/12 1200 AC 01/12 SC 1226 Lidocaine/Prilocaine 1 GAVI DAILY PRN 01/02 1645 AC TOP Morphine Sulfate 2 MG Q4P PRN 01/02 1430 AC 01/12 IV 1523 Multivitamins 1 TAB DAILY 01/03 1000 AC 01/12 PO 1106 Norepinephrine 4 MG Q16H 01/04 1000 AC 01/11 Sodium Chloride 250 ML IV 0150 Polyethylene Glycol 17 GM DAILY 01/05 1349 AC 01/11 PO 1005 Senna 187 MG AT BEDTIME 01/05 2200 AC 01/11 PO 2152 Sevelamer Carbonate 2,400 MG WM 01/02 1700 AC 01/12 PO 1707 Review of Systems Review of Systems: At present he denies fevers or chills, difficulty speaking, neck pain chest pain or palpitations or significant dyspnea. He has long-standing numbness in the leg and is status post amputation on the right. No GI complaints. 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 Home Who Do You Live With? spouse Services at Home: Nursing, Occupational Therapy, Physical Therapy Smoking Status: Never Smoked ETOH Use: occasional use Illicit Drug Use: denies illicit drug use Functional Ability ADLs Independent: dressing, eating, toileting, bathing. Ambulation: independent, cane, Prosthesis IADLs Independent: shopping, housework, finances, food prep, telephone, transportation , medication admin. ECHO Results (as available) Date of last Echo 10/10/17 Exam & Diagnostic Data Vital Signs and I&O Vital Signs Date Time Temp Pulse Resp B/P B/P Pulse O2 O2 Flow FiO2 Mean Ox Delivery Rate 01/12 1600 97 Room Air 01/12 1600 97.1 66 20 96/60 97 Room Air 01/12 1200 98 Room Air 01/12 0800 91 Room Air 01/12 0800 98.7 70 20 104/58 91 Room Air / 0549 62 94 / 0400 95 CPAP / 0308 70 97 03/08 0010 70 93 03/08 0008 70 18 100/60 03/08 0000 93 CPAP 03/ 0000 97.6 70 18 100/60 93 CPAP / 2223 73 94 / 2000 95 Nasal 2.0L Cannula Intake & Output 01/12 1600 01/12 0800 03/ 0000 Intake Total 638 3588 946 Output Total 0 3000 Balance 638 3588 -2054 Intake, 3000 Dialysate Intake, IV 398 538 466 Intake, Oral 240 50 480 Number 0 Bowel Movements Output, 3000 Dialysate Output, Urine 0 0 Patient 202 lb Weight Weight Bed scale Measurement Method Physical Exam: Appears chronically ill but in no current distress. Neck supple, no cervical adenopathy. Alert, attentive, no language errors or disorientation, no dysarthria. Pupils are midsize, equivocally reactive to light, eye movements are conjugate and full. Fundi could not be adequately visualized on either side. Visual [place] are quite restricted circumferentially to finger movements. At this point he was able to count fingers and read large print on a yogurt box both eyes. Facial movement and sensation, hearing, lower cranial nerves okay. Handgrips strong and equal, tone normal, coordination screens grossly intact. Left leg weakness distally with foot drop and distal sensory loss. Areflexic throughout. Last 48 Hours of Lab Results: Laboratory Tests 01/12 01/11 01/11 0700 1900 0657 Chemistry Sodium (137 - 145 mmol/L) 133 L Potassium (3.5 - 5.1 mmol/L) 3.9 Chloride (98 - 107 mmol/L) 99 Carbon Dioxide (22 - 30 mmol/L) 27 Anion Gap (5 - 16) 8 BUN (9 - 20 mg/dL) 33 H Creatinine (0.7 - 1.2 mg/dL) 4.3 H Estimated GFR (>60 ml/min) 14 L Glucose (65 - 99 mg/dL) 161 H Calcium (8.4 - 10.2 mg/dL) 8.4 Phosphorus (2.5 - 4.5 mg/dL) 3.1 Magnesium (1.6 - 2.3 mg/dL) 2.0 Total Bilirubin (0.2 - 1.3 mg/dL) 0.4 AST (17 - 59 U/L) 5 L ALT (21 - 72 U/L) 21 Albumin (3.5 - 5.0 g/dL) 2.8 L Coagulation APTT (25 - 37 SEC) 90 H 78 H 78 H Hematology CBC w Diff NO MAN DIFF REQ WBC (4.8 - 10.8 /CUMM) 8.3 RBC (4.70 - 6.10 /CUMM) 2.93 L Hgb (14.0 - 18.0 G/DL) 9.0 L Hct (42 - 52 %) 27.5 L MCV (80.0 - 94.0 FL) 93.9 MCH (27.0 - 31.0 PG) 30.8 MCHC (33.0 - 37.0 G/DL) 32.8 L RDW (11.5 - 14.5 %) 16.6 H Plt Count (130 - 400 /CUMM) 213 MPV (7.4 - 10.4 FL) 9.2 Gran % (42.2 - 75.2 %) 75.4 H Lymphocytes % (20.5 - 51.1 %) 18.9 L Monocytes % (1.7 - 9.3 %) 5.0 Eosinophils % (0 - 5 %) 0.3 Basophils % (0.0 - 2.0 %) 0.4 Absolute Granulocytes (1.4 - 6.5 /CUMM) 6.3 Absolute Lymphocytes (1.2 - 3.4 /CUMM) 1.6 Absolute Monocytes (0.10 - 0.60 /CUMM) 0.4 Absolute Eosinophils (0.0 - 0.7 /CUMM) 0 Absolute Basophils (0.0 - 0.2 /CUMM) 0 01/11 01/11 0344 0053 Chemistry Sodium (137 - 145 mmol/L) 134 L Potassium (3.5 - 5.1 mmol/L) 4.4 Chloride (98 - 107 mmol/L) 98 Carbon Dioxide (22 - 30 mmol/L) 26 Anion Gap (5 - 16) 11 BUN (9 - 20 mg/dL) 45 H Creatinine (0.7 - 1.2 mg/dL) 5.9 *H Estimated GFR (>60 ml/min) 10 L Glucose (65 - 99 mg/dL) 180 H Calcium (8.4 - 10.2 mg/dL) 8.7 Phosphorus (2.5 - 4.5 mg/dL) 4.1 Magnesium (1.6 - 2.3 mg/dL) 2.1 Total Bilirubin (0.2 - 1.3 mg/dL) 0.3 AST (17 - 59 U/L) 4 L ALT (21 - 72 U/L) 17 L Albumin (3.5 - 5.0 g/dL) 3.0 L Coagulation APTT (25 - 37 SEC) 52 H Hematology CBC w Diff MAN DIFF ORDERED WBC (4.8 - 10.8 /CUMM) 11.9 H RBC (4.70 - 6.10 /CUMM) 2.85 L Hgb (14.0 - 18.0 G/DL) 8.8 L Hct (42 - 52 %) 26.8 L MCV (80.0 - 94.0 FL) 94.1 H MCH (27.0 - 31.0 PG) 30.8 MCHC (33.0 - 37.0 G/DL) 32.8 L RDW (11.5 - 14.5 %) 16.6 H Plt Count (130 - 400 /CUMM) 262 MPV (7.4 - 10.4 FL) 9.1 Gran % (42.2 - 75.2 %) 86.5 H Lymphocytes % (20.5 - 51.1 %) 9.1 L Monocytes % (1.7 - 9.3 %) 3.9 Eosinophils % (0 - 5 %) 0.3 Basophils % (0.0 - 2.0 %) 0.2 Absolute Granulocytes (1.4 - 6.5 /CUMM) 10.3 H Segmented Neutrophils (42.2 - 75.2 %) 93 H Absolute Lymphocytes (1.2 - 3.4 /CUMM) 1.1 L Lymphocytes (20.5 - 51.1 %) 6 L Monocytes (1.7 - 9.3 %) 1 L Absolute Monocytes (0.10 - 0.60 /CUMM) 0.5 Absolute Eosinophils (0.0 - 0.7 /CUMM) 0 Absolute Basophils (0.0 - 0.2 /CUMM) 0 Platelet Estimate (ADEQUATE) ADEQUATE Anisocytosis 1+ Elliptocytes 1+ Imaging/Other Studies: CT scan of the head done urgently reviewed personally, within normal limits. No evidence of hemorrhage. YULIA 01/02/18: CONCLUSIONS Normal LV chamber size, wall thickness and systolic function. The estimated LVEF is 55%. There are no focal wall motion of modalities. The mitral valve is thickened and has poor coaptation. There is moderate mitral annular calcification. There is a possible perforation seen within the posterior leaflet. There is severe mitral regurgitation. No vegetations are seen. No cardiac vegetations are seen. Assessment/Plan Assessment: Sudden onset of bilateral vision loss and headache with progressive improvement in a patient with atrial fibrillation on heparin and also with a history of mitral valve endocarditis. 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 No evidence of cerebral hemorrhage which was the initial suspicion. Recommendations: Ophthalmologic evaluation Continue full anticoagulation with heparin Follow vision and headache clinically Consult Acknowledgment - Thank you for your consult request.
[2018-01-12 19:10] LABS: PTT 82 SEC (25-37)
[2018-01-13] VITALS: BP 90/57
--- NOTE | 2018-01-13 07:04 | PN- Resident CRCU ---
Cricket MARTINEZ,Cathy 01/13/18 0703: Subjective HPI/CRCU Issues: Patient seen and examined. Resting comfortably. Offers no complaints. Overnight event See event note, stroke alert was called for bluriness and headcahe, patient underwent evaluation by neurology and CT scan was negative. Vitals Tmax 97.0, pulse rate ranging between 60-70s, blood pressure ranging 90s to 100/ 50s to 60s saturating 90s in on room air Labs WBC count normal, H/H 8/25 (H&H 9/27.5) platelet count within normal limits, sodium 135, BUN 46, creatinine 52. Glucose 100 blood fingersticks running high secondary to steroids Imaging 1. No change in triple-lumen catheter positioning with tip in region of the right atrium. 2. Findings consistent with pulmonary edema with probable small bilateral pleural effusions. Compared to prior exam, no significant interval change is seen. Interventions planned for today -Repeat echocardiogram to reassess MVR/perforation -Continue on hydrocortisone 50 mg every 8 hours -Continue IV heparin -insulin sliding scale for optimum control of hyperglycemia. -In the event of neurological symptoms we are going to rule out mycotic aneurysm as per ID recommendations, though less likely Objective Vital Signs & I&O Last 8 Hrs of Vitals and I&O: Vital Signs Date Time Temp Pulse Resp B/P B/P Pulse O2 O2 Flow FiO2 Mean Ox Delivery Rate 01/14 800 97 Room Air 01/13 0800 97.0 72 18 90/60 97 Room Air 01/13 0541 61 98 01/13 0400 97 CPAP 01/13 0306 61 96 01/13 0020 64 93 01/13 0000 93 CPAP 01/13 0000 97.0 69 18 90/57 93 CPAP 01/12 1600 97 Room Air 01/12 1600 97.1 66 20 96/60 97 Room Air Intake & Output 01/13 1600 01/13 0800 03/ 0000 Intake Total 456 534 Output Total Balance 456 534 Intake, IV 406 354 Intake, Oral 50 180 Exam General Appearance: no apparent distress Other Physical Findings: Head: atraumatic, normal appearance Respiratory: normal breath sounds, chest non-tender, Left IJ in place Cardiovascular: regular rate/rhythm, murmur Gastrointestinal: normal bowel sounds, soft, non-tender Extremities: Right AKA dressing intact. Left AV fistula Cranial Nerves: normal hearing, normal speech Current Medications: Current Medications Sig/Bobo Start time Last Medication Dose Route Stop Time Status Admin Acetaminophen 1,000 MG ONCE ONE 01/12 1545 DC 01/12 N/A 1 UNIT IV 01/12 1559 1540 Albumin Human 12.5 GM .Q30MIN PRN 01/02 1000 AC 01/04 IV 1058 Aspirin Buffered 81 MG DAILY 01/03 1000 AC 01/13 PO 1225 Atorvastatin Calcium 10 MG 1700 01/05 1700 AC 01/12 PO 1706 Bisacodyl 5 MG DAILY 01/06 1345 AC 01/13 PO 1224 Cefazolin Sodium 2 GM 01/11 1000 AC 01/13 N/A 1 UNIT IV 1227 Cinacalcet 30 MG 01/02 1700 AC 01/12 PO 1707 Clopidogrel Bisulfate 75 MG 01/05 AC 01/12 PO 2044 Cyanocobalamin 1,000 MCG DAILY 01/03 1000 AC 01/13 PO 1225 Docusate Sodium 100 MG DAILY 01/03 1000 AC 01/13 PO 1228 Epoetin Jaron 4,000 UNIT MoWeFr PRN 01/06 1000 AC IV Epoetin Jaron 3,000 UNIT MoWeFr PRN 01/06 1000 AC IV Heparin Sodium 25,000 UNIT Q24H 01/10 0730 AC 01/13 (Porcine) IV 0410 Sodium Chloride 500 ML Hydrocortisone 50 MG Q8 01/10 0600 AC 01/13 Sodium Succinate IV 1307 Insulin Aspart 0 TIDAC 01/13 0800 AC SC Insulin Aspart 0 TIDAC 01/12 1200 DC 01/12 SC 1226 Lidocaine/Prilocaine 1 GAVI DAILY PRN 01/02 1645 AC TOP Morphine Sulfate 4 MG .STK-MED ONE 01/13 0403 DC IM 01/13 0404 Morphine Sulfate 2 MG Q4P PRN 01/02 1430 AC 01/13 IV 0406 Multivitamins 1 TAB DAILY 01/03 1000 AC 01/13 PO 1224 Norepinephrine 4 MG Q16H 01/04 1000 DC 01/11 Sodium Chloride 250 ML IV 0150 Polyethylene Glycol 17 GM DAILY 01/05 1349 AC 01/11 PO 1005 Senna 187 MG AT BEDTIME 01/05 2200 AC 01/12 PO 2121 Sevelamer Carbonate 2,400 MG WM 01/02 1700 AC 01/13 PO 1225 Impression/Plan Impression/Problem List Impression: Patient is a 57-year-old male with past medical history significant for peripheral arterial disease status post right [id number] amputation, end- stage renal disease on hemodialysis, coronary artery disease status post PCI and 1 drug-eluting stent in the left main circumflex artery (September 2017) and status post quadruple CABG (2006), diabetes, history of obstructive sleep apnea on CPAP at night, chronic anemia, most recent admission for septic arthritis and staph aureus sepsis, mitral valve endocarditis, osteomyelitis, history of C. difficile presented this admission after he was found to be hypotensive and tachycardic during dialysis with report of recent fatigue and dyspnea. #Respiratory Stable CXR urinalysis was positive for pulmonary congestion. 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 postop day 5, OR culture negative so far -Relapse of his endocarditis,SAM negative for vegetations, perforation of mitral valve -Seeding from bacteremia diskitis in setting of IE CT scan spine with IV contarst negative, (suboptimal study and pt not a candidate for MRI with gadolinium) -Lingular consolidation with air bronchograms which favors atelectasis, although pneumonia could not excluded on imaging -Infected lines s/p R.femoral TLC removal 2/2 MSSA bacteremia x2, and right IJ removal 2/2 fever spike and leukocytosis * S/p Proline placement in L- IJ on 01/05 on Pressors Goal MAP 55 to 60 * Monitor fever and WBC curve afebrile without white count on steriods * BCx2 seconds set negative BCx2 thirds set negative * Continue cefazolin 2g daily after dialysis 4 to 6 weeks Cardiovascular #Atrial fibrillation: Pt paroxysmal afib and is itnermittently going in and out of A.fib 2/2 sepsis versus mitral valve regurgitation.Pt was started on Heparin on 12/28/2017. Heparin drip has been held intermittently for surgery and drop in H&H 2/2 to postop bleeding from surgical site * CBC stabe, continue heparin drip, was stopped intermittently on 01/11 because oozing from AV fistula #Hypotension: The patient has relative cortisol deficiency with cortisol level of 7.8. Patient remains on pressors. * Hydrocortisone 50mg IV q8 * MAP to 55- 60, Try to wean off pressor, patient is off Levaquin and dopamine Drip has been stopped #CAD s/p stent and CABG : Chronic and stable * Continue Aspirin, Clopidogrel, statin #Mitral regurgitation and possible perforation on SAM Possible mitral valve surgery as an outpatient * Echocardiogram today #Type II PR: Resolved. Peak troponin 0.23 on 12/27 Hemetology #Chronic Anemia H/H dropped from 08/04 to 6.8/21 on 01/05. Hemoglobin 8 to 9 is his baseline. He recieved 1 unit pRBCS postop on 01/03 and 1 units on 01/05. Likely secondary to bleeding from surgical site.CT scan negative for retroperitoneal bleed * Had a drop in H/H Etiology unknown * Repeat CBC @ 5pm transfusion goal hb<7 #Leukocytosis resolved Metabolic #Transaminitis -Resolved Likely reactive postop. 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 Osteomyelitis Pain Ratin Tomorrow's Labs & Rationales: cbc icu Plan DVT/Prophylaxis: Saul Toscano MD 01/13/18 1017: Attending MD Review Statement Attending Sign Off Attending Cosign Statement: I have: examined this patient, reviewed avalbl EMR data, personally reviewd images, discussd w/resident/PA/WHEEL PRESS CLERK, discussed mgmt plan w/whit, discussed mgmt plan w/CM, discussed mgmt plan w/pt, agreed w/resident/PA/WHEEL PRESS CLERK, amended to note. Other Findings: ISaul M.D. have examined this patient, reviewed available EMR data, personally reviewed images, discussed with resident/PA/WHEEL PRESS CLERK, discussed management plan with housestaff and nursing staff, discussed managment plan all of healthcare providers, discussed management plan with patient and/or family, agreed with resident/PA/WHEEL PRESS CLERK. The past history and parts of the chart have been autopopulated. Impression 57 year old man * resolved blurry vision, headache * staph aureus sepsis * s/p aka * ESRD on HD * chronic anemia * a.fib on heparin gtt * s/p sam showing ? perforation in posterior leaflet without obvious clinical significance and will require surveillance * adrenal insufficiency Plan -neuro recs, ct reviewed, plan for cta if ok with renal vs mri afterwards to ensure that there is no intracranial pathology -f/u ECHO -endocrinology appreciated, cont solucortef, will follow recs -off pressors -s/p proline -f/u nephrology, ID, vascular surgery, cardiology -HD per renal -map goal 50-55 -heparin gtt DVT prophylaxis at all times TTS 35 min
--- NOTE | 2018-01-13 07:28 | PN- Endocrinology ---
Assessment/Plan Endoscopy Assessment: The patient states he feels improved this morning. He is eating okay. He remains on hydrocortisone 50 mg IV every 8 hours. He is off pressors at the present time. Blood pressure is 93/60. The patient was started on some NovoLog coverage before meals yesterday. His blood sugars are in a satisfactory range. Plan: Suggest continue Solu-Cortef 50 mg IV every 8 hours. This is very adequate amount to support his blood pressure and protect him against adrenal insufficiency. Continue NovoLog coverage before meals only. Subjective Subjective: Feels okay Review of Systems Constitutional: Denies: chills, fever. Cardiovascular: Denies: chest pain. Respiratory: Denies: cough, short of breath. Gastrointestinal: Denies: abdominal pain. Objective Last 24 Hrs of Vital Signs/I&O Vital Signs Date Time Temp Pulse Resp B/P B/P Pulse O2 O2 Flow FiO2 Mean Ox Delivery Rate 01/13 0541 61 98 03/09 0400 97 CPAP 03/ 0306 61 96 03/09 0020 64 93 03/09 0000 93 CPAP 03/09 0000 97.0 69 18 90/57 93 CPAP 03/08 1600 97 Room Air 03/ 1600 97.1 66 20 96/60 97 Room Air 03/ 1200 98 Room Air / 0800 91 Room Air / 0800 98.7 70 20 104/58 91 Room Air Intake & Output 01/13 0800 03/ 0000 03/ 1600 Intake Total 456 534 638 Output Total 0 Balance 456 534 638 Intake, IV 406 354 398 Intake, Oral 50 180 240 Number 0 Bowel Movements Output, Urine 0 Patient 202 lb Weight Weight Bed scale Measurement Method Vital Signs Date Time Temp Pulse Resp B/P B/P Pulse O2 O2 Flow FiO2 Mean Ox Delivery Rate 01/13 0541 61 98 03/09 0400 97 CPAP 03/ 0306 61 96 03/09 0020 64 93 03/09 0000 93 CPAP 03/09 0000 97.0 69 18 90/57 93 CPAP 03/08 1600 97 Room Air 03/08 1600 97.1 66 20 96/60 97 Room Air 03/08 1200 98 Room Air 03/08 0800 91 Room Air 03/08 0800 98.7 70 20 104/58 91 Room Air Intake & Output 01/13 0800 03/09 0000 03/08 1600 Intake Total 456 534 638 Output Total 0 Balance 456 534 638 Intake, IV 406 354 398 Intake, Oral 50 180 240 Number 0 Bowel Movements Output, Urine 0 Patient 202 lb Weight Weight Bed scale Measurement Method Physical Exam General Appearance: alert, awake, comfortable Head: normal appearance Respiratory: normal breath sounds Cardiovascular: regular rate/rhythm Abdomen: normal bowel sounds Current Medications: Current Medications Sig/Bobo Start time Last Medication Dose Route Stop Time Status Admin Acetaminophen 1,000 MG ONCE ONE 01/12 1545 DC 01/12 N/A 1 UNIT IV 01/12 1559 1540 Albumin Human 12.5 GM .Q30MIN PRN 01/02 1000 AC 01/04 IV 1058 Aspirin Buffered 81 MG DAILY 01/03 1000 AC 01/12 PO 1105 Atorvastatin Calcium 10 MG 01/05 1700 AC 01/12 PO 1706 Bisacodyl 5 MG DAILY 01/06 1345 AC 01/12 PO 1107 Cefazolin Sodium 2 GM 01/11 1000 AC 01/11 N/A 1 UNIT IV 1005 Cinacalcet 30 MG 01/02 1700 AC 01/12 PO 1707 Clopidogrel Bisulfate 75 MG 01/05 2000 AC 01/12 PO 2044 Cyanocobalamin 1,000 MCG DAILY 01/03 1000 AC 01/12 PO 1105 Docusate Sodium 100 MG DAILY 01/03 1000 AC 01/12 PO 1106 Epoetin Jaron 4,000 UNIT MoWeFr PRN 01/06 1000 AC IV Epoetin Jaron 3,000 UNIT MoWeFr PRN 01/06 1000 AC IV Heparin Sodium 25,000 UNIT Q24H 01/10 0730 AC 01/13 (Porcine) IV 0410 Sodium Chloride 500 ML Hydrocortisone 50 MG Q8 01/10 0600 AC 01/13 Sodium Succinate IV 0638 Insulin Aspart 0 TIDAC 01/13 0800 AC SC Insulin Aspart 0 TIDAC 01/12 1200 DC 01/12 SC 1226 Lidocaine/Prilocaine 1 GAVI DAILY PRN 01/02 1645 AC TOP Morphine Sulfate 2 MG Q4P PRN 01/02 1430 AC 01/13 IV 0406 Multivitamins 1 TAB DAILY 01/03 1000 AC 01/12 PO 1106 Norepinephrine 4 MG Q16H 01/04 1000 DC 01/11 Sodium Chloride 250 ML IV 0150 Polyethylene Glycol 17 GM DAILY 01/05 1349 AC 01/11 PO 1005 Senna 187 MG AT BEDTIME 01/05 2200 AC 01/12 PO 2121 Sevelamer Carbonate 2,400 MG WM 01/02 1700 AC 01/12 PO 1707 Results Pertinent Lab/Brendan Results: Laboratory Tests 01/13 01/12 0653 1825 Chemistry Sodium Pending Potassium Pending Chloride Pending Carbon Dioxide Pending Anion Gap Pending BUN Pending Creatinine Pending Glucose Pending Calcium Pending Phosphorus Pending Magnesium Pending Total Bilirubin Pending AST Pending ALT Pending Albumin Pending Coagulation APTT (25 - 37 SEC) Pending 82 H Hematology CBC w Diff Pending WBC Pending RBC Pending Hgb Pending Hct Pending MCV Pending MCH Pending MCHC Pending RDW Pending Plt Count Pending MPV Pending
[2018-01-13 08:00] VITALS: BP 90/60
[2018-01-13 08:07] LABS: ABSOLUTE BASOPHIL COUNT 0 /CUMM (0.0-0.2); ABSOLUTE EOSINOPHIL COUNT 0 /CUMM (0.0-0.7); ABSOLUTE GRANULOCYTE CT 2.9 /CUMM (1.4-6.5); ABSOLUTE MONOCYTE COUNT 0.2 /CUMM (0.10-0.60); BASOPHIL % 0.3 % (0.0-2.0); MEAN CORPUSCULAR HGB 30.9 PG (27.0-31.0); RED BLOOD CELL CT 2.56 /CUMM (4.70-6.10)
[2018-01-13 08:17] LABS: PTT 107 SEC (25-37)
[2018-01-13 08:53] LABS: ABSOLUTE LYMPH COUNT 0.9 /CUMM (1.2-3.4); EOSINOPHIL % 0.6 % (0-5); GRANULOCYTE % 71.3 % (42.2-75.2); HEMATOCRIT 24.1 % (42-52); MEAN CORPUSCULAR HGB CONC 32.9 G/DL (33.0-37.0); MEAN CORPUSCULAR VOLUME 94.1 FL (80.0-94.0); RBC DISTRIBUTION WIDTH 16.9 % (11.5-14.5)
--- NOTE | 2018-01-13 09:20 | RADIOLOGY REPORT ---
EXAMINATION: XR PORTABLE CHEST CLINICAL INFORMATION: Rule out cardiogenic shock and pulmonary edema in this patient. Prior to dialysis. COMPARISON: Prior chest x-rays, most recent of which is dated 01/11/2018. TECHNIQUE: Portable AP semierect view of the chest was obtained. FINDINGS: Multiple EKG leads overlie the chest. The patient is status post median sternotomy. Again noted is fracture of the upper 3 sternal wires without significant displacement from midline. A left subclavian triple-lumen catheter is again seen in place with tip in the region of the right atrium. The cardiomediastinal silhouette is enlarged. There is central vascular congestion and streaky perihilar opacities seen, consistent with pulmonary edema. There may be trace bilateral layering pleural effusions. Compared to prior exam, findings are similar. No new acute superimposed process is seen. No pneumothorax is present. Bony structures are unremarkable. IMPRESSION: 1. No change in triple-lumen catheter positioning with tip in region of the right atrium. 2. Findings consistent with pulmonary edema with probable small bilateral pleural effusions. Compared to prior exam, no significant interval change is seen.
[2018-01-13 09:53] LABS: MEAN PLATELET VOLUME 8.8 FL (7.4-10.4); WHITE BLOOD CELL COUNT 5.4 /CUMM (4.8-10.8)
[2018-01-13 09:54] LABS: PLATELET COUNT 170 /CUMM (130-400)
--- NOTE | 2018-01-13 10:32 | PN- Nephrology ---
Assessment/Plan Nephrology Assessment: ESRD - Remains off pressors. Respiratory status comfortable although remains overloaded. Getting HD today with fluid removal as tolerated. Will plan for HD tomorrow as well to avoid 72hr window without HD. Anemia - Epogen has been increased to 7000U TIW - will need to monitor Hg - sounds like from some active bleeding from foot - may need to increase further. MSSA bacteremia - Cultures neg. CT C/A/P unrevealing of source - ultimately thought to be stump. ID following - remains on abx - likely to just complete 4- 6 week course. Suggestion: -HD today - 2.5L UF as tolerated -HD tomorrow -Epogen 7000U TIW Please call [phone] with ?'s Subjective Subjective: Pt seen and examined on dialysis Off pressors On nasal cannula Hg 9.0->7.9 - on heparin gtt Visual disturbances yesterday afternoon prompting CT Head - neg Objective Vital Signs and I&Os Vital Signs Date Time Temp Pulse Resp B/P B/P Pulse O2 O2 Flow FiO2 Mean Ox Delivery Rate 01/13 0800 97 Room Air / 0800 97.0 72 18 90/60 97 Room Air 03/ 0541 61 98 03/ 0400 97 CPAP / 0306 61 96 03/09 0020 64 93 03/09 0000 93 CPAP 03/09 0000 97.0 69 18 90/57 93 CPAP 03/08 1600 97 Room Air 03/08 1600 97.1 66 20 96/60 97 Room Air / 1200 98 Room Air Intake & Output 01/13 1600 / 0400 / 1600 / 0400 01/11 1600 03/ 0400 Intake Total 970 200 1587 946 1898.4 522.8 Output Total 0 3000 Balance 482 560 2182 -2054 1898.4 522.8 Intake, 3000 Dialysate Intake, IV 406 354 061 695 7290.4 222.8 Intake, Oral 50 180 290 480 530 300 Number 0 Bowel Movements Output, 3000 Dialysate Output, Urine 0 0 Patient 202 lb Weight Weight Bed scale Measurement Method Physical Exam: Gen - OK appearing HEENT - supple CV - RRR, no m/r/g Chest - decreased BS at bases Abd - soft, NTND Ext - +edema, s/p RLE amputation; LLA AVF +thrill/+bruit Neuro - AOX3, grossly nonfocal Current Medications: Current Medications Sig/Bobo Start time Last Medication Dose Route Stop Time Status Admin Acetaminophen 1,000 MG ONCE ONE 01/12 1545 DC 01/12 N/A 1 UNIT IV 01/12 1559 1540 Albumin Human 12.5 GM .Q30MIN PRN 01/02 1000 AC 01/04 IV 1058 Aspirin Buffered 81 MG DAILY 01/03 1000 AC 01/12 PO 1105 Atorvastatin Calcium 10 MG 17001/05 1700 AC 01/12 PO 1706 Bisacodyl 5 MG DAILY 01/06 1345 AC 01/12 PO 1107 Cefazolin Sodium 2 GM 01/11 1000 AC 01/11 N/A 1 UNIT IV 1005 Cinacalcet 30 MG 17001/02 1700 AC 01/12 PO 1707 Clopidogrel Bisulfate 75 MG 01/05 AC 01/12 PO 2044 Cyanocobalamin 1,000 MCG DAILY 01/03 1000 AC 01/12 PO 1105 Docusate Sodium 100 MG DAILY 01/03 1000 AC 01/12 PO 1106 Epoetin Jaron 4,000 UNIT MoWeFr PRN 01/06 1000 AC IV Epoetin Jaron 3,000 UNIT MoWeFr PRN 01/06 1000 AC IV Heparin Sodium 25,000 UNIT Q24H 01/10 0730 AC 01/13 (Porcine) IV 0410 Sodium Chloride 500 ML Hydrocortisone 50 MG Q8 01/10 0600 AC 01/13 Sodium Succinate IV 0638 Insulin Aspart 0 TIDAC 01/13 0800 AC SC Insulin Aspart 0 TIDAC 01/12 1200 DC 01/12 SC 1226 Lidocaine/Prilocaine 1 GAVI DAILY PRN 01/02 1645 AC TOP Morphine Sulfate 2 MG Q4P PRN 01/02 1430 AC 01/13 IV 0406 Multivitamins 1 TAB DAILY 01/03 1000 AC 01/12 PO 1106 Norepinephrine 4 MG Q16H 01/04 1000 DC 01/11 Sodium Chloride 250 ML IV 0150 Polyethylene Glycol 17 GM DAILY 01/05 1349 AC 01/11 PO 1005 Senna 187 MG AT BEDTIME 01/05 2200 AC 01/12 PO 2121 Sevelamer Carbonate 2,400 MG WM 01/02 1700 AC 01/12 PO 1707 Results Pertinent Lab Results: Laboratory Tests 01/13 01/12 0653 1825 Chemistry Sodium (137 - 145 mmol/L) 135 L Potassium (3.5 - 5.1 mmol/L) 3.9 Chloride (98 - 107 mmol/L) 100 Carbon Dioxide (22 - 30 mmol/L) 25 Anion Gap (5 - 16) 10 BUN (9 - 20 mg/dL) 46 H Creatinine (0.7 - 1.2 mg/dL) 5.2 *H Estimated GFR (>60 ml/min) 12 L Glucose (65 - 99 mg/dL) 100 H Calcium (8.4 - 10.2 mg/dL) 8.4 Phosphorus (2.5 - 4.5 mg/dL) 3.6 Magnesium (1.6 - 2.3 mg/dL) 2.0 Total Bilirubin (0.2 - 1.3 mg/dL) 0.2 AST (17 - 59 U/L) 5 L ALT (21 - 72 U/L) 14 L Albumin (3.5 - 5.0 g/dL) 2.6 L Coagulation APTT (25 - 37 SEC) 107 *H 82 H Hematology CBC w Diff NO MAN DIFF REQ WBC (4.8 - 10.8 /CUMM) 5.4 RBC (4.70 - 6.10 /CUMM) 2.56 L Hgb (14.0 - 18.0 G/DL) 7.9 L Hct (42 - 52 %) 24.1 L MCV (80.0 - 94.0 FL) 94.1 H MCH (27.0 - 31.0 PG) 30.9 MCHC (33.0 - 37.0 G/DL) 32.9 L RDW (11.5 - 14.5 %) 16.9 H Plt Count (130 - 400 /CUMM) 170 MPV (7.4 - 10.4 FL) 8.8 Gran % (42.2 - 75.2 %) 71.3 Lymphocytes % (20.5 - 51.1 %) 22.9 Monocytes % (1.7 - 9.3 %) 4.9 Eosinophils % (0 - 5 %) 0.6 Basophils % (0.0 - 2.0 %) 0.3 Absolute Granulocytes (1.4 - 6.5 /CUMM) 2.9 Absolute Lymphocytes (1.2 - 3.4 /CUMM) 0.9 L Absolute Monocytes (0.10 - 0.60 /CUMM) 0.2 Absolute Eosinophils (0.0 - 0.7 /CUMM) 0 Absolute Basophils (0.0 - 0.2 /CUMM) 0 01/12 01/11 01/11 0700 1900 0657 Chemistry Sodium (137 - 145 mmol/L) 133 L Potassium (3.5 - 5.1 mmol/L) 3.9 Chloride (98 - 107 mmol/L) 99 Carbon Dioxide (22 - 30 mmol/L) 27 Anion Gap (5 - 16) 8 BUN (9 - 20 mg/dL) 33 H Creatinine (0.7 - 1.2 mg/dL) 4.3 H Estimated GFR (>60 ml/min) 14 L Glucose (65 - 99 mg/dL) 161 H Calcium (8.4 - 10.2 mg/dL) 8.4 Phosphorus (2.5 - 4.5 mg/dL) 3.1 Magnesium (1.6 - 2.3 mg/dL) 2.0 Total Bilirubin (0.2 - 1.3 mg/dL) 0.4 AST (17 - 59 U/L) 5 L ALT (21 - 72 U/L) 21 Albumin (3.5 - 5.0 g/dL) 2.8 L Coagulation APTT (25 - 37 SEC) 90 H 78 H 78 H Hematology CBC w Diff NO MAN DIFF REQ WBC (4.8 - 10.8 /CUMM) 8.3 RBC (4.70 - 6.10 /CUMM) 2.93 L Hgb (14.0 - 18.0 G/DL) 9.0 L Hct (42 - 52 %) 27.5 L MCV (80.0 - 94.0 FL) 93.9 MCH (27.0 - 31.0 PG) 30.8 MCHC (33.0 - 37.0 G/DL) 32.8 L RDW (11.5 - 14.5 %) 16.6 H Plt Count (130 - 400 /CUMM) 213 MPV (7.4 - 10.4 FL) 9.2 Gran % (42.2 - 75.2 %) 75.4 H Lymphocytes % (20.5 - 51.1 %) 18.9 L Monocytes % (1.7 - 9.3 %) 5.0 Eosinophils % (0 - 5 %) 0.3 Basophils % (0.0 - 2.0 %) 0.4 Absolute Granulocytes (1.4 - 6.5 /CUMM) 6.3 Absolute Lymphocytes (1.2 - 3.4 /CUMM) 1.6 Absolute Monocytes (0.10 - 0.60 /CUMM) 0.4 Absolute Eosinophils (0.0 - 0.7 /CUMM) 0 Absolute Basophils (0.0 - 0.2 /CUMM) 0 01/11 01/11 01/10 0344 0053 1230 Chemistry Sodium (137 - 145 mmol/L) 134 L Potassium (3.5 - 5.1 mmol/L) 4.4 Chloride (98 - 107 mmol/L) 98 Carbon Dioxide (22 - 30 mmol/L) 26 Anion Gap (5 - 16) 11 BUN (9 - 20 mg/dL) 45 H Creatinine (0.7 - 1.2 mg/dL) 5.9 *H Estimated GFR (>60 ml/min) 10 L Glucose (65 - 99 mg/dL) 180 H Calcium (8.4 - 10.2 mg/dL) 8.7 Phosphorus (2.5 - 4.5 mg/dL) 4.1 Magnesium (1.6 - 2.3 mg/dL) 2.1 Total Bilirubin (0.2 - 1.3 mg/dL) 0.3 AST (17 - 59 U/L) 4 L ALT (21 - 72 U/L) 17 L Albumin (3.5 - 5.0 g/dL) 3.0 L Coagulation APTT (25 - 37 SEC) 52 H 69 H Hematology CBC w Diff MAN DIFF ORDERED WBC (4.8 - 10.8 /CUMM) 11.9 H RBC (4.70 - 6.10 /CUMM) 2.85 L Hgb (14.0 - 18.0 G/DL) 8.8 L Hct (42 - 52 %) 26.8 L MCV (80.0 - 94.0 FL) 94.1 H MCH (27.0 - 31.0 PG) 30.8 MCHC (33.0 - 37.0 G/DL) 32.8 L RDW (11.5 - 14.5 %) 16.6 H Plt Count (130 - 400 /CUMM) 262 MPV (7.4 - 10.4 FL) 9.1 Gran % (42.2 - 75.2 %) 86.5 H Lymphocytes % (20.5 - 51.1 %) 9.1 L Monocytes % (1.7 - 9.3 %) 3.9 Eosinophils % (0 - 5 %) 0.3 Basophils % (0.0 - 2.0 %) 0.2 Absolute Granulocytes (1.4 - 6.5 /CUMM) 10.3 H Segmented Neutrophils (42.2 - 75.2 %) 93 H Absolute Lymphocytes (1.2 - 3.4 /CUMM) 1.1 L Lymphocytes (20.5 - 51.1 %) 6 L Monocytes (1.7 - 9.3 %) 1 L Absolute Monocytes (0.10 - 0.60 /CUMM) 0.5 Absolute Eosinophils (0.0 - 0.7 /CUMM) 0 Absolute Basophils (0.0 - 0.2 /CUMM) 0 Platelet Estimate (ADEQUATE) ADEQUATE Anisocytosis 1+ Elliptocytes 1+ Imaging/Other Studies: CT Head reviewed EXAM TYPE: RAD - XRY-PORTABLE CHEST XRAY EXAMINATION: XR PORTABLE CHEST CLINICAL INFORMATION: Rule out cardiogenic shock and pulmonary edema in this patient. Prior to dialysis. COMPARISON: Prior chest x-rays, most recent of which is dated 01/11/2018. TECHNIQUE: Portable AP semierect view of the chest was obtained. FINDINGS: Multiple EKG leads overlie the chest. The patient is status post median sternotomy. Again noted is fracture of the upper 3 sternal wires without significant displacement from midline. A left subclavian triple-lumen catheter is again seen in place with tip in the region of the right atrium. The cardiomediastinal silhouette is enlarged. There is central vascular congestion and streaky perihilar opacities seen, consistent with pulmonary edema. There may be trace bilateral layering pleural effusions. Compared to prior exam, findings are similar. No new acute superimposed process is seen. No pneumothorax is present. Bony structures are unremarkable. IMPRESSION: 1. No change in triple-lumen catheter positioning with tip in region of the right atrium. 2. Findings consistent with pulmonary edema with probable small bilateral pleural effusions. Compared to prior exam, no significant interval change is seen.
--- NOTE | 2018-01-13 11:10 | PN- Infect Dx ---
Subjective Subjective: Afebrile on steroids. He had an episode yesterday afternoon of a headache associated with blurred vision, which eventually resolved. He feels well today with no complaints. Objective Last 24 Hrs of Vital Signs/I&O Vital Signs Date Time Temp Pulse Resp B/P B/P Pulse O2 O2 Flow FiO2 Mean Ox Delivery Rate 01/14 800 97 Room Air 01/13 0800 97.0 72 18 90/60 97 Room Air 01/13 0541 61 98 01/13 0400 97 CPAP 01/13 0306 61 96 01/13 0020 64 93 01/13 0000 93 CPAP 01/13 0000 97.0 69 18 90/57 93 CPAP 01/12 1600 97 Room Air 01/12 1600 97.1 66 20 96/60 97 Room Air 01/12 1200 98 Room Air Intake & Output 01/13 1600 01/13 0800 01/13 0000 Intake Total 456 534 Output Total Balance 456 534 Intake, IV 406 354 Intake, Oral 50 180 Physical Exam Other Physical Findings: He appears comfortable in no acute distress Neck left IJ triple-lumen catheter with no inflammation at the site Lungs are clear Heart regular rhythm with no murmur Extremities left leg edema; right AKA dressing intact Results Last 24 Hours of Lab Results: Laboratory Tests 01/13 01/12 0653 1825 Chemistry Sodium (137 - 145 mmol/L) 135 L Potassium (3.5 - 5.1 mmol/L) 3.9 Chloride (98 - 107 mmol/L) 100 Carbon Dioxide (22 - 30 mmol/L) 25 Anion Gap (5 - 16) 10 BUN (9 - 20 mg/dL) 46 H Creatinine (0.7 - 1.2 mg/dL) 5.2 *H Estimated GFR (>60 ml/min) 12 L Glucose (65 - 99 mg/dL) 100 H Calcium (8.4 - 10.2 mg/dL) 8.4 Phosphorus (2.5 - 4.5 mg/dL) 3.6 Magnesium (1.6 - 2.3 mg/dL) 2.0 Total Bilirubin (0.2 - 1.3 mg/dL) 0.2 AST (17 - 59 U/L) 5 L ALT (21 - 72 U/L) 14 L Albumin (3.5 - 5.0 g/dL) 2.6 L Coagulation APTT (25 - 37 SEC) 107 *H 82 H Hematology CBC w Diff NO MAN DIFF REQ WBC (4.8 - 10.8 /CUMM) 5.4 RBC (4.70 - 6.10 /CUMM) 2.56 L Hgb (14.0 - 18.0 G/DL) 7.9 L Hct (42 - 52 %) 24.1 L MCV (80.0 - 94.0 FL) 94.1 H MCH (27.0 - 31.0 PG) 30.9 MCHC (33.0 - 37.0 G/DL) 32.9 L RDW (11.5 - 14.5 %) 16.9 H Plt Count (130 - 400 /CUMM) 170 MPV (7.4 - 10.4 FL) 8.8 Gran % (42.2 - 75.2 %) 71.3 Lymphocytes % (20.5 - 51.1 %) 22.9 Monocytes % (1.7 - 9.3 %) 4.9 Eosinophils % (0 - 5 %) 0.6 Basophils % (0.0 - 2.0 %) 0.3 Absolute Granulocytes (1.4 - 6.5 /CUMM) 2.9 Absolute Lymphocytes (1.2 - 3.4 /CUMM) 0.9 L Absolute Monocytes (0.10 - 0.60 /CUMM) 0.2 Absolute Eosinophils (0.0 - 0.7 /CUMM) 0 Absolute Basophils (0.0 - 0.2 /CUMM) 0 Last 24 Hours of Brendan Results: No recent cultures Recent Imaging Studies: CT of the head January 12 no acute process Chest x-ray January 13 revealed central vascular congestion with streaky perihilar opacities, consistent with pulmonary edema Assessment/Plan ID Impression: Stable, with blood pressure improved, now off pressors, possibly related to the steroids, begun for presumed relative adrenal insufficiency, with temperatures and white blood cell count remaining normal on Cefazolin now Day 18 of treatment for Staph aureus sepsis/possible endocarditis, now 16 days of negative blood cultures, with the YULIA negative for any vegetation but revealing a perforation of the mitral valve leaflet and moderate to severe mitral regurgitation, for which he will require valve replacement. The episode yesterday of headache and blurred vision raises concern for a possible SAFETY TECH complication of endocarditis, such as a mycotic aneurysm or another embolic event, and further imaging may be helpful to rule this out. He is now 11 days status post right AKA because of the concern of an infected right BKA stump, though the pathology did not reveal any significant inflammation. Suggestion: 1. Would pursue CTA of the head as discussed 2. Remove left IJ triple-lumen catheter if he remains off pressors and has peripheral IV access 3. Eventual mitral valve replacement per Cardiology 4. Continue Cefazolin after each dialysis
--- NOTE | 2018-01-13 13:20 | ECHOCARDIOGRAM REPORT ---
YOANA QUEZADA Age: 57 : 1960 Gender: M Exam Date: 01/12/2018 18:48 Exam Location: [facility] Ht (in): 76 Wt (lb): 210 BSA: 2.27 BP: 104 / 58 Ordering Physician: Cathy Harley MD Referring Physician: Erasto Trinidad MD Technologist: Debbie Hill [facility] Room Number: 101 Indications: HYPOTENSION Rhythm: Sinus Technical Quality: fair FINDINGS Left Ventricle Normal size left ventricle. Left ventricular wall thickness mildly increased. Normal left ventricular ejection fraction estimated at 60-65%. Right Ventricle Mild right ventricular dilatation. Right Atrium Mild right atrial dilatation. Left Atrium Mild left atrial dilatation. Mitral Valve Moderate mitral annular calcification. Mild subvalvular mitral calcification. Severe mitral regurgitation. Aortic Valve Aortic valve is normal in structure and function. Tricuspid Valve Tricuspid valve is normal in structure and function. Mild-to- moderate tricuspid regurgitation. Right ventricular systolic pressure estimated to be elevated at 50 mmHg. Pulmonic Valve Pulmonic valve not well visualized, grossly normal. Pericardium No pericardial effusion. Great Vessels Normal size aortic root. CONCLUSIONS Normal left ventricular systolic function with mild LVH. Severe Mitral regurgitation. Moderate Pulmonary hypertension. Mild Right ventricular enlargement. Left atrial enlargement. Erasto Trinidad M.D. (Electronically Signed) Final Date: 13 January 2018 13:19 MEASUREMENTS (Male / Female) Normal Values 2D ECHO LV Diastolic Diameter PLAX 5.5 cm 4.2 - 5.9 / 3.9 - 5.3 cm LV Systolic Diameter PLAX 3.5 cm 2.1 - 4.0 cm LV Fractional Shortening PLAX 36.4 % 25 - 46 % LV Ejection Fraction 2D Teich 65.5 % IVS Diastolic Thickness 1.2 cm LVPW Diastolic Thickness 1.2 cm LV Relative Wall Thickness 0.4 RV Internal Dim ED PLAX 3.5 cm 1.9 - 3.8 cm LVOT Diameter 2.4 cm Aortic Root Diameter 3.5 cm LA Systolic Diameter LX 4.2 cm 3.0 - 4.0 / 2.7 - 3.8 cm LA Volume 84.0 cm 18 - 58 / 22 - 52 cm Ascending Aorta Diameter 3.2 cm DOPPLER AV Peak Velocity 138.0 cm/s AV Peak Gradient 7.6 mmHg AV Mean Velocity 85.1 cm/s AV Mean Gradient 4.0 mmHg AV Velocity Time Integral 24.0 cm LVOT Peak Velocity 95.9 cm/s LVOT Peak Gradient 3.7 mmHg LVOT Mean Velocity 64.8 cm/s LVOT Mean Gradient 2.0 mmHg LVOT Velocity Time Integral 20.1 cm LVOT Stroke Volume 90.9 cm AV Area Cont Eq vti 3.8 cm AV Area Cont Eq pk 3.1 cm MV Peak Velocity 156.0 cm/s MV Peak Gradient 9.7 mmHg MV Mean Velocity 87.2 cm/s MV Mean Gradient 4.0 mmHg Mitral E Point Velocity 169.0 cm/s Mitral A Point Velocity 55.5 cm/s Mitral E to A Ratio 3.0 MV PHT Velocity 162.0 cm/s MV Deceleration [place] 533.0 cm/s MV Pressure Half Time 91.2 ms MV Area PHT 2.4 cm MV Deceleration Time 217.0 ms TR Peak Velocity 358.0 cm/s TR Peak Gradient 51.3 mmHg Right Atrial Pressure 5.0 mmHg Pulmonary Artery Systolic Pressu 56.3 mmHg Right Ventricular Systolic Press 56.3 mmHg PV Peak Velocity 126.0 cm/s PV Peak Gradient 6.4 mmHg PV Mean Velocity 72.9 cm/s PV Mean Gradient 3.0 mmHg PV Velocity Time Integral 22.9 cm LV E' Lateral Velocity 9.8 cm/s Mitral E to LV E' Lateral Ratio 17.2 LV E' Septal Velocity 7.7 cm/s Mitral E to LV E' Septal Ratio 21.9
[2018-01-13 14:04] LABS: PTT 73 SEC (25-37)
--- NOTE | 2018-01-13 14:35 | PN- Cardiology ---
Subjective Subjective: The patient's currently sitting upright in bed with no specific complaints, undergoing dialysis. He is currently off pressor support in his blood pressure is 110 systolic. He denies any symptoms. Follow-up echo pending Objective Vital Signs and I&Os Vital Signs Date Time Temp Pulse Resp B/P B/P Pulse O2 O2 Flow FiO2 Mean Ox Delivery Rate 01/13 08 97 Room Air 01/13 0800 97.0 72 18 90/60 97 Room Air 01/13 0541 61 98 01/13 0400 97 CPAP 01/13 0306 61 96 / 0020 64 93 / 0000 93 CPAP / 0000 97.0 69 18 90/57 93 CPAP 01/12 1600 97 Room Air 01/12 1600 97.1 66 20 96/60 97 Room Air Intake & Output 01/13 1600 01/13 0800 / 0000 / 1600 01/12 0800 01/12 0000 Intake Total 456 032 096 1063 946 Output Total 0 3000 Balance 456 448 761 1789 -2054 Intake, 3000 Dialysate Intake, IV 406 354 398 538 466 Intake, Oral 50 180 240 50 480 Number 0 Bowel Movements Output, 3000 Dialysate Output, Urine 0 0 Patient 202 lb Weight Weight Bed scale Measurement Method Physical Exam: Head: normocephalic atraumatic Eyes: sclera mild pallor anicteric conjunctiva mild pallor extraocular muscles normal Neck: JVP normal, carotids normal bilaterally Chest: lungs were clear bilaterally Heart: regular rhythm grade 2/6 midsystolic murmur Abdomen: soft no organomegaly nontender Extremities: amputation Neurological: grossly non focal Current Medications: Current Medications Sig/Boob Start time Last Medication Dose Route Stop Time Status Admin Acetaminophen 1,000 MG ONCE ONE 01/12 1545 DC 01/12 N/A 1 UNIT IV 01/12 1559 1540 Albumin Human 12.5 GM .Q30MIN PRN 01/02 1000 AC 01/04 IV 1058 Aspirin Buffered 81 MG DAILY 01/03 1000 AC 01/13 PO 1225 Atorvastatin Calcium 10 MG 1700 01/05 1700 AC 01/12 PO 1706 Bisacodyl 5 MG DAILY 01/06 1345 AC 01/13 PO 1224 Cefazolin Sodium 2 GM 01/11 1000 AC 01/13 N/A 1 UNIT IV 1227 Cinacalcet 30 MG 1700 01/02 1700 AC 01/12 PO 1707 Clopidogrel Bisulfate 75 MG 01/05 AC 01/12 PO 2044 Cyanocobalamin 1,000 MCG DAILY 01/03 1000 AC 01/13 PO 1225 Docusate Sodium 100 MG DAILY 01/03 1000 AC 01/13 PO 1228 Epoetin Jaron 4,000 UNIT MoWeFr PRN 01/06 1000 AC IV Epoetin Jaron 3,000 UNIT MoWeFr PRN 01/06 1000 AC IV Heparin Sodium 25,000 UNIT Q24H 01/10 0730 AC 01/13 (Porcine) IV 0410 Sodium Chloride 500 ML Hydrocortisone 50 MG Q8 01/10 0600 AC 01/13 Sodium Succinate IV 1307 Insulin Aspart 0 TIDAC 01/13 0800 AC SC Insulin Aspart 0 TIDAC 01/12 1200 DC 01/12 SC 1226 Lidocaine/Prilocaine 1 GAVI DAILY PRN 01/02 1645 AC TOP Morphine Sulfate 4 MG .STK-MED ONE 01/13 0403 DC IM 01/13 0404 Morphine Sulfate 2 MG Q4P PRN 01/02 1430 AC 01/13 IV 0406 Multivitamins 1 TAB DAILY 01/03 1000 AC 01/13 PO 1224 Norepinephrine 4 MG Q16H 01/04 1000 DC 01/11 Sodium Chloride 250 ML IV 0150 Polyethylene Glycol 17 GM DAILY 01/05 1349 AC 01/11 PO 1005 Senna 187 MG AT BEDTIME 01/05 2200 AC 01/12 PO 2121 Sevelamer Carbonate 2,400 MG WM 01/02 1700 AC 01/13 PO 1225 Results Last 48 Hrs of Labs/Mics: Laboratory Tests 01/13/18 1240: APTT 73 H 01/13/18 0653: Anion Gap 10, Estimated GFR 12 L, Glucose 100 H, Calcium 8.4, Phosphorus 3.6, Magnesium 2.0, Total Bilirubin 0.2, AST 5 L, ALT 14 L, Albumin 2.6 L, APTT 107 *H, CBC w Diff NO MAN DIFF REQ, RBC 2.56 L, MCV 94.1 H, MCH 30.9, MCHC 32.9 L, RDW 16.9 H, MPV 8.8, Gran % 71.3, Lymphocytes % 22.9, Monocytes % 4.9, Eosinophils % 0.6, Basophils % 0.3, Absolute Granulocytes 2.9, Absolute Lymphocytes 0.9 L, Absolute Monocytes 0.2, Absolute Eosinophils 0, Absolute Basophils 0 01/12/18 1825: APTT 82 H 01/12/18 0700: Anion Gap 8, Estimated GFR 14 L, Glucose 161 H, Calcium 8.4, Phosphorus 3.1, Magnesium 2.0, Total Bilirubin 0.4, AST 5 L, ALT 21, Albumin 2.8 L, APTT 90 H , CBC w Diff NO MAN DIFF REQ, RBC 2.93 L, MCV 93.9, MCH 30.8, MCHC 32.8 L, RDW 16.6 H, MPV 9.2, Gran % 75.4 H, Lymphocytes % 18.9 L, Monocytes % 5.0, Eosinophils % 0.3, Basophils % 0.4, Absolute Granulocytes 6.3, Absolute Lymphocytes 1.6, Absolute Monocytes 0.4, Absolute Eosinophils 0, Absolute Basophils 0 01/11/18 1900: APTT 78 H Assessment/Plan Assessment/Plan Assessment: 1. Coronary disease by history status post coronary bypass surgery 2006 with complex PCI to the left main into the circumflex September 2017 with normal LV function 2. Hx of Hypertension, currently hypotensive with questionable adrenal insufficiency 3. Peripheral arterial disease status post prior amputation now S/P right AKA 4. End-stage renal disease on dialysis 5. 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 Repeat YULIA to 01/02/18 was negative for vegetations; however, with severe mitral regurgitation and possible perforation 6. Diabetes 7. Fever and chills with hypotension possibly secondary to sepsis. 8. Elevated troponins, minimal, not due to ACS 9. Intermittent atrial fibrillation possibly due to sepsis Recommendations: - Clinically appears more stable today with improved BP - Continue as per Nephrology - Echo repeat suggests severe MR with PHTN and CXR with slight worsening of CHF with associated low BP; the patient should be monitored closely for any worsening of clinical status in view of possible worsening MR. Continue telemetry? Yes
--- NOTE | 2018-01-13 14:43 | CT SCAN REPORT ---
EXAMINATION: CT ANGIOGRAM HEAD CLINICAL INFORMATION: Rule out mycotic aneurysm, hemorrhage, or ischemia and context of loss of vision. COMPARISON: Head CT 01/22/2018. TECHNIQUE: Test bolus sequences followed by intravenous administration 95 mL of Optiray 350 intravenous contrast. Helical imaging was performed in the axial plane from the mediastinum to the skull vertex. Delayed postcontrast imaging of the head was also performed. The data was processed at the laboratory technologist's workstation for generation of MIP sequences. Three-dimensional volume rendered reformatted images were also generated at an offline 3-D workstation. Stenoses graded per criteria similar to NASCET. FINDINGS: The anterior and posterior intracranial arterial circulations are widely patent without significant arterial stenosis and without acute arterial occlusion. 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 Calcific atherosclerotic disease throughout the carotid siphons bilaterally without significant stenosis. No aneurysms and no high flow vascular malformations are appreciated. Mild nonspecific hypoattenuation within the supratentorial white matter is unchanged. A few punctate calcifications bilaterally are stable. There is no pathologic enhancement intracranially. There is no intracranial hemorrhage, hydrocephalus, extra-axial surface collection, midline shift, or other herniation pattern. Kern to white matter differentiation is diffusely maintained without evidence of an evolved acute territorial infarct. The basilar cisterns are preserved. No significant soft tissue abnormality. No acute osseous abnormality. The paranasal sinuses and the mastoid air cells are well-aerated. Significant periapical lucency associated with the right mandibular canine with adjacent mandibular buccal cortical erosion. IMPRESSION: - Stable mild nonspecific hypoattenuation within the supratentorial white matter. No acute territorial infarcts. No pathologic enhancement intracranially. Stable scattered punctate calcifications. - No acute arterial occlusions and no significant arterial stenoses intracranially. No aneurysms. - Significant periapical lucency associated with the right mandibular canine with adjacent mandibular buccal cortical erosion.
[2018-01-13 15:48] VITALS: BP 116/62
[2018-01-13 17:40] LABS: ABSOLUTE BASOPHIL COUNT 0 /CUMM (0.0-0.2); ABSOLUTE EOSINOPHIL COUNT 0 /CUMM (0.0-0.7); ABSOLUTE GRANULOCYTE CT 4.5 /CUMM (1.4-6.5); ABSOLUTE LYMPH COUNT 0.5 /CUMM (1.2-3.4); ABSOLUTE MONOCYTE COUNT 0.2 /CUMM (0.10-0.60); BASOPHIL % 0.2 % (0.0-2.0); EOSINOPHIL % 0.9 % (0-5); HEMATOCRIT 25.7 % (42-52); MEAN CORPUSCULAR HGB 31.1 PG (27.0-31.0); MEAN CORPUSCULAR HGB CONC 33.2 G/DL (33.0-37.0); MEAN CORPUSCULAR VOLUME 93.7 FL (80.0-94.0); PLATELET COUNT 171 /CUMM (130-400); RBC DISTRIBUTION WIDTH 16.9 % (11.5-14.5); RED BLOOD CELL CT 2.74 /CUMM (4.70-6.10); WHITE BLOOD CELL COUNT 5.2 /CUMM (4.8-10.8)
[2018-01-13 18:12] LABS: GRANULOCYTE % 85.6 % (42.2-75.2)
[2018-01-14] VITALS: BP 100/50
[2018-01-14 01:48] LABS: ABSOLUTE BASOPHIL COUNT 0 /CUMM (0.0-0.2); ABSOLUTE EOSINOPHIL COUNT 0 /CUMM (0.0-0.7); ABSOLUTE GRANULOCYTE CT 3.5 /CUMM (1.4-6.5); ABSOLUTE LYMPH COUNT 0.7 /CUMM (1.2-3.4); ABSOLUTE MONOCYTE COUNT 0.2 /CUMM (0.10-0.60); BASOPHIL % 0.2 % (0.0-2.0); EOSINOPHIL % 0.1 % (0-5); GRANULOCYTE % 79.8 % (42.2-75.2); HEMATOCRIT 28.3 % (42-52); MEAN CORPUSCULAR HGB 30.8 PG (27.0-31.0); MEAN CORPUSCULAR VOLUME 93.2 FL (80.0-94.0); MEAN PLATELET VOLUME 9.1 FL (7.4-10.4); PLATELET COUNT 146 /CUMM (130-400); RBC DISTRIBUTION WIDTH 16.8 % (11.5-14.5); RED BLOOD CELL CT 3.04 /CUMM (4.70-6.10); WHITE BLOOD CELL COUNT 4.4 /CUMM (4.8-10.8)
[2018-01-14 02:05] LABS: PTT 59 SEC (25-37)
[2018-01-14 08:00] VITALS: BP 96/60
--- NOTE | 2018-01-14 08:23 | PN- CRCU ---
Subjective HPI/Critical Care Issues: Doing relatively better Continues to be slightly hypotensive but mentating well Afebrile Heart rate 71 with first-degree AV block Blood pressure noted Patient was on CPAP last night this morning he was on room air saturating well On heparin Mild lose noted from his AV fistula site He did have dialysis yesterday and they did remove 2.5 L Significant data reviewed in the computer as noted His BUN/creatinine is elevated as expected with dialysis other blood work noted white count 4.4 hemoglobin stable at 9.4 platelets 146 his PTT was 59 this morning His cultures were negative before Chest x-ray done yesterday showed pulmonary edema with bilateral pleural effusions He did have a CT head angiogram done yesterday which showed stable lesions no acute arterial occlusion or stenosis and it did show significant periapical lucency associated with right mandibular canine with adjacent mandibular buccal cortical erosion His echocardiogram done showed normal ejection fraction severe mitral regurgitation and moderate pulmonary hypertension Objective Current Medications: Current Medications Sig/Bobo Start time Last Medication Dose Route Stop Time Status Admin Albumin Human 12.5 GM .Q30MIN PRN 01/02 1000 AC 01/04 IV 1058 Aspirin Buffered 81 MG DAILY 01/03 1000 AC 01/13 PO 1225 Atorvastatin Calcium 10 MG 1700 01/05 1700 AC 01/13 PO 1649 Bisacodyl 5 MG DAILY 01/06 1345 AC 01/13 PO 1224 Cefazolin Sodium 2 GM 01/11 1000 AC 01/13 N/A 1 UNIT IV 1227 Cinacalcet 30 MG 1700 01/02 1700 AC 01/13 PO 1650 Clopidogrel Bisulfate 75 MG 01/05 AC 01/13 PO 195 Cyanocobalamin 1,000 MCG DAILY 01/03 1000 AC 01/13 PO 1225 Docusate Sodium 100 MG DAILY 01/03 1000 AC 01/13 PO 1228 Epoetin Jaron 4,000 UNIT MoWeFr PRN 01/06 1000 AC IV Epoetin Jaron 3,000 UNIT MoWeFr PRN 01/06 1000 AC IV Heparin Sodium 25,000 UNIT Q12H 01/14 0730 AC (Porcine) IV Sodium Chloride 500 ML Heparin Sodium 3,700 UNIT ONCE ONE 01/14 0300 DC 01/14 (Porcine) IV 01/14 0301 0300 Heparin Sodium 25,000 UNIT Q24H 01/10 0730 DC 01/13 (Porcine) IV 1651 Sodium Chloride 500 ML Hydrocortisone 50 MG Q8 01/10 06 AC 01/14 Sodium Succinate IV 0537 Insulin Aspart 0 TIDAC 01/13 0800 AC 01/13 SC 1650 Lidocaine/Prilocaine 1 GAVI DAILY PRN 01/02 1645 AC 01/14 TOP 0645 Morphine Sulfate 4 MG .STK-MED ONE 01/13 2218 DC IM 01/13 2219 Morphine Sulfate 2 MG Q4P PRN 01/02 1430 AC 01/13 IV 2220 Multivitamins 1 TAB DAILY 01/03 1000 AC 01/13 PO 1224 Polyethylene Glycol 17 GM DAILY 01/05 1349 AC 01/11 PO 1005 Senna 187 MG AT BEDTIME 01/05 2200 AC 01/13 PO 2115 Sevelamer Carbonate 2,400 MG WM 01/02 1700 AC 01/13 PO 1649 Vital Signs & I&O Last 24 Hrs of Vitals and I&O: Vital Signs Date Time Temp Pulse Resp B/P B/P Pulse O2 O2 Flow FiO2 Mean Ox Delivery Rate 01/14 0521 64 95 01/14 0400 95 CPAP 01/14 0317 63 96 01/14 0000 95 CPAP 01/14 0000 96.8 62 18 100/50 95 CPAP 01/14 0000 69 95 01/13 2159 78 98 01/13 2000 100 Room Air Room Air 01/13 1600 95 Room Air 01/13 1548 98.0 82 20 116/62 94 Room Air 01/13 1200 98 Room Air Intake & Output 01/14 1600 01/14 0800 01/14 0000 Intake Total 273.8 416 Output Total 0 0 Balance 273.8 416 Intake, IV 273.8 296 Intake, Oral 0 120 Number 0 Bowel Movements Output, Urine 0 0 Laboratory Tests 01/14 01/13 0055 1658 Chemistry Sodium (137 - 145 mmol/L) 137 Potassium (3.5 - 5.1 mmol/L) 3.6 Chloride (98 - 107 mmol/L) 99 Carbon Dioxide (22 - 30 mmol/L) 28 Anion Gap (5 - 16) 11 BUN (9 - 20 mg/dL) 32 H Creatinine (0.7 - 1.2 mg/dL) 3.9 H Estimated GFR (>60 ml/min) 16 L Glucose (65 - 99 mg/dL) 126 H Calcium (8.4 - 10.2 mg/dL) 8.2 L Phosphorus (2.5 - 4.5 mg/dL) 2.9 Magnesium (1.6 - 2.3 mg/dL) 2.0 Total Bilirubin (0.2 - 1.3 mg/dL) 0.3 AST (17 - 59 U/L) 7 L ALT (21 - 72 U/L) 17 L Albumin (3.5 - 5.0 g/dL) 2.7 L Coagulation APTT (25 - 37 SEC) 59 H Hematology CBC w Diff NO MAN DIFF REQ NO MAN DIFF REQ WBC (4.8 - 10.8 /CUMM) 4.4 L 5.2 RBC (4.70 - 6.10 /CUMM) 3.04 L 2.74 L Hgb (14.0 - 18.0 G/DL) 9.4 L 8.5 L Hct (42 - 52 %) 28.3 L 25.7 L MCV (80.0 - 94.0 FL) 93.2 93.7 MCH (27.0 - 31.0 PG) 30.8 31.1 H MCHC (33.0 - 37.0 G/DL) 33.0 33.2 RDW (11.5 - 14.5 %) 16.8 H 16.9 H Plt Count (130 - 400 /CUMM) 146 171 MPV (7.4 - 10.4 FL) 9.1 9.0 Gran % (42.2 - 75.2 %) 79.8 H 85.6 H Lymphocytes % (20.5 - 51.1 %) 15.5 L 9.4 L Monocytes % (1.7 - 9.3 %) 4.4 3.9 Eosinophils % (0 - 5 %) 0.1 0.9 Basophils % (0.0 - 2.0 %) 0.2 0.2 Absolute Granulocytes (1.4 - 6.5 /CUMM) 3.5 4.5 Absolute Lymphocytes (1.2 - 3.4 /CUMM) 0.7 L 0.5 L Absolute Monocytes (0.10 - 0.60 /CUMM) 0.2 0.2 Absolute Eosinophils (0.0 - 0.7 /CUMM) 0 0 Absolute Basophils (0.0 - 0.2 /CUMM) 0 0 01/13 01/13 01/12 1240 0653 1825 Chemistry Sodium (137 - 145 mmol/L) 135 L Potassium (3.5 - 5.1 mmol/L) 3.9 Chloride (98 - 107 mmol/L) 100 Carbon Dioxide (22 - 30 mmol/L) 25 Anion Gap (5 - 16) 10 BUN (9 - 20 mg/dL) 46 H Creatinine (0.7 - 1.2 mg/dL) 5.2 *H Estimated GFR (>60 ml/min) 12 L Glucose (65 - 99 mg/dL) 100 H Calcium (8.4 - 10.2 mg/dL) 8.4 Phosphorus (2.5 - 4.5 mg/dL) 3.6 Magnesium (1.6 - 2.3 mg/dL) 2.0 Total Bilirubin (0.2 - 1.3 mg/dL) 0.2 AST (17 - 59 U/L) 5 L ALT (21 - 72 U/L) 14 L Albumin (3.5 - 5.0 g/dL) 2.6 L Coagulation APTT (25 - 37 SEC) 73 H 107 *H 82 H Hematology CBC w Diff NO MAN DIFF REQ WBC (4.8 - 10.8 /CUMM) 5.4 RBC (4.70 - 6.10 /CUMM) 2.56 L Hgb (14.0 - 18.0 G/DL) 7.9 L Hct (42 - 52 %) 24.1 L MCV (80.0 - 94.0 FL) 94.1 H MCH (27.0 - 31.0 PG) 30.9 MCHC (33.0 - 37.0 G/DL) 32.9 L RDW (11.5 - 14.5 %) 16.9 H Plt Count (130 - 400 /CUMM) 170 MPV (7.4 - 10.4 FL) 8.8 Gran % (42.2 - 75.2 %) 71.3 Lymphocytes % (20.5 - 51.1 %) 22.9 Monocytes % (1.7 - 9.3 %) 4.9 Eosinophils % (0 - 5 %) 0.6 Basophils % (0.0 - 2.0 %) 0.3 Absolute Granulocytes (1.4 - 6.5 /CUMM) 2.9 Absolute Lymphocytes (1.2 - 3.4 /CUMM) 0.9 L Absolute Monocytes (0.10 - 0.60 /CUMM) 0.2 Absolute Eosinophils (0.0 - 0.7 /CUMM) 0 Absolute Basophils (0.0 - 0.2 /CUMM) 0 Impression/Plan Impression/Plan Impression/Plan: Head: normocephalic atraumatic Eyes: sclera mild pallor anicteric conjunctiva mild pallor extraocular muscles normal Neck: JVP normal, carotids normal bilaterally Chest: lungs were clear bilaterally Heart: regular rhythm grade 2/6 midsystolic murmur Abdomen: soft no organomegaly nontender Extremities: amputation Neurological: grossly non focal Left triple-lumen catheter noted stable AV fistula noted in the left side with mild oozing IMPRESSION This a gentleman with coronary artery disease with previous CABG, end-stage renal Disease, previous PCI in 2017 now with normal ejection fraction, history of hypertension, questionable adrenal insufficiency, severe peripheral vascular disease with amputation on the right side with AKA, previous history of infected stump, recent mitral valve endocarditis with negative YULIA in end december, severe mitral regurgitation with possible perforation, diabetes, on and off fever and chills with hypotension, previous elevated troponin, intermittent atrial fibrillation now on heparin now in ICU. Issues include * Sudden onset bilateral vision loss which is improving now in a patient with atrial fibrillation on on heparin no clinical evidence suggestive of atheroembolism in the CT. Neuro is on board. 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 Infectious disease following * Severe peripheral vascular disease with above-knee amputation * End-stage renal disease on hemodialysis * Chronic anemia * Atrial fibrillation now on heparin * Severe mitral regurgitation, peripheral vascular disease, previous ischemic heart disease with normal ejection fraction - at this time with ongoing pulmonary edema on dialysis. There is a question of perforation in the posterior leaflet of the mitral valve which is being followed clinically * Persistent hypotension on and off - probable adrenal insufficiency, diabetes and endocrine on board on Solu-Cortef and insulin. * Severe PVD s/p AKA * RECOMMENDATIONS/plan * Continue current therapy * Dialysis to be done today * Continue steroids * His CT scan of the head reviewed he does seem to have probable dental caries. ID to comment on this to see with a would benefit from a dental evaluation * Continue to watch him today with his blood pressure and if it stable we will consider removing his triple-lumen tomorrow * Cardiology to follow to eventually consider mitral valve replacement * Continue anticoagulation and ask cardiology to see with a can be transitioned to warfarin * Steroid management per endocrine probably can reduce his steroids to twice a day * Start midodrine 5 mg 3 times a day and can be increased to 10 3 times a day if his blood pressure permits * We will follow closely Patient is critically ill total time spent 37 minutes Will consider transferring him to telemetry soon if stable
--- NOTE | 2018-01-14 10:34 | PN- Endocrinology ---
Assessment/Plan Endoscopy Assessment: He remains on hydrocortisone 50 mg IV every 8 hours. His BP 100/50. He is receiving HD at this moment. Am lab showed Cr 3.9. He was put on Novolog coverage before meals and his FSGs were 107, 131, 218 and 173. Plan: 1. continue Hydrocortisone 50 mg iv every 8 hours for now; 2. adjust Novolog coverage before meals; ---FSG < 150, no coverage ---FSG 150-200, 2 units ---FSG 201-250, 3 units ---FSG 251-300, 4 units ---FSG 301-350, 5 units ---FSG 351-400, 6 units ---FSG > 400, 7 units 3. monitor vital sign, electrolytes and FSGs. will follow. Subjective Subjective: He feels okay this morning. Objective Last 24 Hrs of Vital Signs/I&O Vital Signs Date Time Temp Pulse Resp B/P B/P Pulse O2 O2 Flow FiO2 Mean Ox Delivery Rate 01/14 0521 64 95 01/14 0400 95 CPAP 01/14 0317 63 96 01/14 0000 95 CPAP 01/14 0000 96.8 62 18 100/50 95 CPAP 01/14 0000 69 95 01/13 2159 78 98 01/13 2000 100 Room Air Room Air 01/13 1600 95 Room Air 01/13 1548 98.0 82 20 116/62 94 Room Air 01/13 1200 98 Room Air Intake & Output 01/14 1600 01/14 0800 01/14 0000 Intake Total 273.8 416 Output Total 0 0 Balance 273.8 416 Intake, IV 273.8 296 Intake, Oral 0 120 Number 0 Bowel Movements Output, Urine 0 0 Results Pertinent Lab/Brendan Results: Laboratory Tests 01/14 01/14 0845 0055 Chemistry Sodium (137 - 145 mmol/L) 137 Potassium (3.5 - 5.1 mmol/L) 3.6 Chloride (98 - 107 mmol/L) 99 Carbon Dioxide (22 - 30 mmol/L) 28 Anion Gap (5 - 16) 11 BUN (9 - 20 mg/dL) 32 H Creatinine (0.7 - 1.2 mg/dL) 3.9 H Estimated GFR (>60 ml/min) 16 L Glucose (65 - 99 mg/dL) 126 H Calcium (8.4 - 10.2 mg/dL) 8.2 L Phosphorus (2.5 - 4.5 mg/dL) 2.9 Magnesium (1.6 - 2.3 mg/dL) 2.0 Total Bilirubin (0.2 - 1.3 mg/dL) 0.3 AST (17 - 59 U/L) 7 L ALT (21 - 72 U/L) 17 L Albumin (3.5 - 5.0 g/dL) 2.7 L Coagulation APTT (25 - 37 SEC) Pending 59 H Hematology CBC w Diff NO MAN DIFF REQ WBC (4.8 - 10.8 /CUMM) 4.4 L RBC (4.70 - 6.10 /CUMM) 3.04 L Hgb (14.0 - 18.0 G/DL) 9.4 L Hct (42 - 52 %) 28.3 L MCV (80.0 - 94.0 FL) 93.2 MCH (27.0 - 31.0 PG) 30.8 MCHC (33.0 - 37.0 G/DL) 33.0 RDW (11.5 - 14.5 %) 16.8 H Plt Count (130 - 400 /CUMM) 146 MPV (7.4 - 10.4 FL) 9.1 Gran % (42.2 - 75.2 %) 79.8 H Lymphocytes % (20.5 - 51.1 %) 15.5 L Monocytes % (1.7 - 9.3 %) 4.4 Eosinophils % (0 - 5 %) 0.1 Basophils % (0.0 - 2.0 %) 0.2 Absolute Granulocytes (1.4 - 6.5 /CUMM) 3.5 Absolute Lymphocytes (1.2 - 3.4 /CUMM) 0.7 L Absolute Monocytes (0.10 - 0.60 /CUMM) 0.2 Absolute Eosinophils (0.0 - 0.7 /CUMM) 0 Absolute Basophils (0.0 - 0.2 /CUMM) 0 01/13 03 1658 1240 Coagulation APTT (25 - 37 SEC) 73 H Hematology CBC w Diff NO MAN DIFF REQ WBC (4.8 - 10.8 /CUMM) 5.2 RBC (4.70 - 6.10 /CUMM) 2.74 L Hgb (14.0 - 18.0 G/DL) 8.5 L Hct (42 - 52 %) 25.7 L MCV (80.0 - 94.0 FL) 93.7 MCH (27.0 - 31.0 PG) 31.1 H MCHC (33.0 - 37.0 G/DL) 33.2 RDW (11.5 - 14.5 %) 16.9 H Plt Count (130 - 400 /CUMM) 171 MPV (7.4 - 10.4 FL) 9.0 Gran % (42.2 - 75.2 %) 85.6 H Lymphocytes % (20.5 - 51.1 %) 9.4 L Monocytes % (1.7 - 9.3 %) 3.9 Eosinophils % (0 - 5 %) 0.9 Basophils % (0.0 - 2.0 %) 0.2 Absolute Granulocytes (1.4 - 6.5 /CUMM) 4.5 Absolute Lymphocytes (1.2 - 3.4 /CUMM) 0.5 L Absolute Monocytes (0.10 - 0.60 /CUMM) 0.2 Absolute Eosinophils (0.0 - 0.7 /CUMM) 0 Absolute Basophils (0.0 - 0.2 /CUMM) 0
[2018-01-14 10:48] LABS: PTT 73 SEC (25-37)
[2018-01-14 12:00] VITALS: BP 98/60
--- NOTE | 2018-01-14 12:04 | PN- Nephrology ---
Assessment/Plan Nephrology Assessment: ESRD: Extra dialysis today and process, patient seen on dialysis. Tolerating fluid removal. BP borderline low around 100 systolic however this is his baseline blood pressure. He will have dialysis again on Tuesday to get back on a Tuesday schedule. Would minimize IV fluids and make sure he is on a fluid restriction of approximately 1 L per day. Continue his renal meds of Sensipar, sevelamer, and Epogen Suggestion: as above Subjective Subjective: No acute events Patient seen on dialysis He has been off pressors He also had dialysis yesterday, this is an extra treatment today given edema/ volume overload Review of Systems: Denies chest pain or shortness of breath. He makes minimal urine. No nausea or diarrhea Objective Vital Signs and I&Os Vital Signs Date Time Temp Pulse Resp B/P B/P Pulse O2 O2 Flow FiO2 Mean Ox Delivery Rate 01/14 0800 96.9 78 20 96/60 98 Room Air Room Air 01/14 0521 64 95 01/14 0400 95 CPAP 01/14 0317 63 96 01/14 0000 95 CPAP 01/14 0000 96.8 62 18 100/50 95 CPAP 01/14 0000 69 95 01/13 2159 78 98 / 2000 100 Room Air Room Air 01/13 1600 95 Room Air 01/13 1548 98.0 82 20 116/62 94 Room Air Intake & Output 01/14 1600 10 0400 01/13 1600 01/13 0400 01/12 1600 01/12 0400 Intake Total 273.8 416 124 387 4229 946 Output Total 0 0 2500 0 3000 Balance 273.8 416 -2568 870 4148 -2054 Intake, 3000 Dialysate Intake, IV 273.8 296 672 354 936 466 Intake, Oral 0 120 170 180 290 480 Number 0 0 0 Bowel Movements Output, 2500 3000 Dialysate Output, Urine 0 0 0 0 0 Patient 202 lb Weight Weight Bed scale Measurement Method Physical Exam: nad ctab 3+ edema s/p AKA S1 S2 soft NT no sanders cath +neck TLC Current Medications: Current Medications Sig/Bobo Start time Last Medication Dose Route Stop Time Status Admin Albumin Human 12.5 GM .Q30MIN PRN 01/02 1000 AC 01/04 IV 1058 Aspirin Buffered 81 MG DAILY 01/03 1000 AC 01/13 PO 1225 Atorvastatin Calcium 10 MG 1700 01/05 1700 AC 01/13 PO 1649 Bisacodyl 5 MG DAILY 01/06 1345 AC 01/13 PO 1224 Cefazolin Sodium 2 GM 01/11 1000 AC 01/13 N/A 1 UNIT IV 1227 Cinacalcet 30 MG 1700 01/02 1700 AC 01/13 PO 1650 Clopidogrel Bisulfate 75 MG 01/05 AC 01/13 PO 1952 Cyanocobalamin 1,000 MCG DAILY 01/03 1000 AC 01/13 PO 1225 Docusate Sodium 100 MG DAILY 01/03 1000 AC 01/13 PO 1228 Epoetin Jaron 4,000 UNIT MoWeFr PRN 01/06 1000 AC IV Epoetin Jaron 3,000 UNIT MoWeFr PRN 01/06 1000 AC IV Heparin Sodium 25,000 UNIT Q12H 01/14 0730 AC 01/14 (Porcine) IV 0905 Sodium Chloride 500 ML Heparin Sodium 3,700 UNIT ONCE ONE 01/14 0300 DC 01/14 (Porcine) IV 01/14 0301 0300 Heparin Sodium 5,000 UNIT .STK-MED ONE 01/14 0253 DC (Porcine) IV 01/14 0254 Heparin Sodium 25,000 UNIT Q24H 01/10 0730 DC 01/13 (Porcine) IV 1651 Sodium Chloride 500 ML Hydrocortisone 50 MG Q8 01/10 06 AC 01/14 Sodium Succinate IV 0537 Insulin Aspart 0 TIDAC 01/13 0800 AC 01/13 SC 1650 Lidocaine/Prilocaine 1 GAVI DAILY PRN 01/02 1645 AC 01/14 TOP 0645 Morphine Sulfate 4 MG .STK-MED ONE 01/13 2218 DC IM 01/13 2219 Morphine Sulfate 2 MG Q4P PRN 01/02 1430 AC 01/13 IV 2220 Multivitamins 1 TAB DAILY 01/03 1000 AC 01/13 PO 1224 Polyethylene Glycol 17 GM DAILY 01/05 1349 AC 01/11 PO 1005 Senna 187 MG AT BEDTIME 01/05 2200 AC 01/13 PO 2115 Sevelamer Carbonate 2,400 MG WM 01/02 1700 AC 01/13 PO 1649 Results Pertinent Lab Results: Laboratory Tests 01/14 01/14 0845 0055 Chemistry Sodium (137 - 145 mmol/L) 137 Potassium (3.5 - 5.1 mmol/L) 3.6 Chloride (98 - 107 mmol/L) 99 Carbon Dioxide (22 - 30 mmol/L) 28 Anion Gap (5 - 16) 11 BUN (9 - 20 mg/dL) 32 H Creatinine (0.7 - 1.2 mg/dL) 3.9 H Estimated GFR (>60 ml/min) 16 L Glucose (65 - 99 mg/dL) 126 H Calcium (8.4 - 10.2 mg/dL) 8.2 L Phosphorus (2.5 - 4.5 mg/dL) 2.9 Magnesium (1.6 - 2.3 mg/dL) 2.0 Total Bilirubin (0.2 - 1.3 mg/dL) 0.3 AST (17 - 59 U/L) 7 L ALT (21 - 72 U/L) 17 L Albumin (3.5 - 5.0 g/dL) 2.7 L Coagulation APTT (25 - 37 SEC) 73 H 59 H Hematology CBC w Diff NO MAN DIFF REQ WBC (4.8 - 10.8 /CUMM) 4.4 L RBC (4.70 - 6.10 /CUMM) 3.04 L Hgb (14.0 - 18.0 G/DL) 9.4 L Hct (42 - 52 %) 28.3 L MCV (80.0 - 94.0 FL) 93.2 MCH (27.0 - 31.0 PG) 30.8 MCHC (33.0 - 37.0 G/DL) 33.0 RDW (11.5 - 14.5 %) 16.8 H Plt Count (130 - 400 /CUMM) 146 MPV (7.4 - 10.4 FL) 9.1 Gran % (42.2 - 75.2 %) 79.8 H Lymphocytes % (20.5 - 51.1 %) 15.5 L Monocytes % (1.7 - 9.3 %) 4.4 Eosinophils % (0 - 5 %) 0.1 Basophils % (0.0 - 2.0 %) 0.2 Absolute Granulocytes (1.4 - 6.5 /CUMM) 3.5 Absolute Lymphocytes (1.2 - 3.4 /CUMM) 0.7 L Absolute Monocytes (0.10 - 0.60 /CUMM) 0.2 Absolute Eosinophils (0.0 - 0.7 /CUMM) 0 Absolute Basophils (0.0 - 0.2 /CUMM) 0 01/13 01/13 1658 1240 Coagulation APTT (25 - 37 SEC) 73 H Hematology CBC w Diff NO MAN DIFF REQ WBC (4.8 - 10.8 /CUMM) 5.2 RBC (4.70 - 6.10 /CUMM) 2.74 L Hgb (14.0 - 18.0 G/DL) 8.5 L Hct (42 - 52 %) 25.7 L MCV (80.0 - 94.0 FL) 93.7 MCH (27.0 - 31.0 PG) 31.1 H MCHC (33.0 - 37.0 G/DL) 33.2 RDW (11.5 - 14.5 %) 16.9 H Plt Count (130 - 400 /CUMM) 171 MPV (7.4 - 10.4 FL) 9.0 Gran % (42.2 - 75.2 %) 85.6 H Lymphocytes % (20.5 - 51.1 %) 9.4 L Monocytes % (1.7 - 9.3 %) 3.9 Eosinophils % (0 - 5 %) 0.9 Basophils % (0.0 - 2.0 %) 0.2 Absolute Granulocytes (1.4 - 6.5 /CUMM) 4.5 Absolute Lymphocytes (1.2 - 3.4 /CUMM) 0.5 L Absolute Monocytes (0.10 - 0.60 /CUMM) 0.2 Absolute Eosinophils (0.0 - 0.7 /CUMM) 0 Absolute Basophils (0.0 - 0.2 /CUMM) 0 01/13 01/12 0653 1825 Chemistry Sodium (137 - 145 mmol/L) 135 L Potassium (3.5 - 5.1 mmol/L) 3.9 Chloride (98 - 107 mmol/L) 100 Carbon Dioxide (22 - 30 mmol/L) 25 Anion Gap (5 - 16) 10 BUN (9 - 20 mg/dL) 46 H Creatinine (0.7 - 1.2 mg/dL) 5.2 *H Estimated GFR (>60 ml/min) 12 L Glucose (65 - 99 mg/dL) 100 H Calcium (8.4 - 10.2 mg/dL) 8.4 Phosphorus (2.5 - 4.5 mg/dL) 3.6 Magnesium (1.6 - 2.3 mg/dL) 2.0 Total Bilirubin (0.2 - 1.3 mg/dL) 0.2 AST (17 - 59 U/L) 5 L ALT (21 - 72 U/L) 14 L Albumin (3.5 - 5.0 g/dL) 2.6 L Coagulation APTT (25 - 37 SEC) 107 *H 82 H Hematology CBC w Diff NO MAN DIFF REQ WBC (4.8 - 10.8 /CUMM) 5.4 RBC (4.70 - 6.10 /CUMM) 2.56 L Hgb (14.0 - 18.0 G/DL) 7.9 L Hct (42 - 52 %) 24.1 L MCV (80.0 - 94.0 FL) 94.1 H MCH (27.0 - 31.0 PG) 30.9 MCHC (33.0 - 37.0 G/DL) 32.9 L RDW (11.5 - 14.5 %) 16.9 H Plt Count (130 - 400 /CUMM) 170 MPV (7.4 - 10.4 FL) 8.8 Gran % (42.2 - 75.2 %) 71.3 Lymphocytes % (20.5 - 51.1 %) 22.9 Monocytes % (1.7 - 9.3 %) 4.9 Eosinophils % (0 - 5 %) 0.6 Basophils % (0.0 - 2.0 %) 0.3 Absolute Granulocytes (1.4 - 6.5 /CUMM) 2.9 Absolute Lymphocytes (1.2 - 3.4 /CUMM) 0.9 L Absolute Monocytes (0.10 - 0.60 /CUMM) 0.2 Absolute Eosinophils (0.0 - 0.7 /CUMM) 0 Absolute Basophils (0.0 - 0.2 /CUMM) 0 08 03/07 0700 1900 Chemistry Sodium (137 - 145 mmol/L) 133 L Potassium (3.5 - 5.1 mmol/L) 3.9 Chloride (98 - 107 mmol/L) 99 Carbon Dioxide (22 - 30 mmol/L) 27 Anion Gap (5 - 16) 8 BUN (9 - 20 mg/dL) 33 H Creatinine (0.7 - 1.2 mg/dL) 4.3 H Estimated GFR (>60 ml/min) 14 L Glucose (65 - 99 mg/dL) 161 H Calcium (8.4 - 10.2 mg/dL) 8.4 Phosphorus (2.5 - 4.5 mg/dL) 3.1 Magnesium (1.6 - 2.3 mg/dL) 2.0 Total Bilirubin (0.2 - 1.3 mg/dL) 0.4 AST (17 - 59 U/L) 5 L ALT (21 - 72 U/L) 21 Albumin (3.5 - 5.0 g/dL) 2.8 L Coagulation APTT (25 - 37 SEC) 90 H 78 H Hematology CBC w Diff NO MAN DIFF REQ WBC (4.8 - 10.8 /CUMM) 8.3 RBC (4.70 - 6.10 /CUMM) 2.93 L Hgb (14.0 - 18.0 G/DL) 9.0 L Hct (42 - 52 %) 27.5 L MCV (80.0 - 94.0 FL) 93.9 MCH (27.0 - 31.0 PG) 30.8 MCHC (33.0 - 37.0 G/DL) 32.8 L RDW (11.5 - 14.5 %) 16.6 H Plt Count (130 - 400 /CUMM) 213 MPV (7.4 - 10.4 FL) 9.2 Gran % (42.2 - 75.2 %) 75.4 H Lymphocytes % (20.5 - 51.1 %) 18.9 L Monocytes % (1.7 - 9.3 %) 5.0 Eosinophils % (0 - 5 %) 0.3 Basophils % (0.0 - 2.0 %) 0.4 Absolute Granulocytes (1.4 - 6.5 /CUMM) 6.3 Absolute Lymphocytes (1.2 - 3.4 /CUMM) 1.6 Absolute Monocytes (0.10 - 0.60 /CUMM) 0.4 Absolute Eosinophils (0.0 - 0.7 /CUMM) 0 Absolute Basophils (0.0 - 0.2 /CUMM) 0
--- NOTE | 2018-01-14 12:41 | PN- Resident CRCU ---
Subjective HPI/CRCU Issues: saw pt at beside today. He was resting comfortably getting dialyzed. No acute overnight events and no complaints. Pt continues to be off any pressors and maintaining MAP >50 with no change in mentation. 24 Hour Events: Tmax 98, HR 54-82, RR 16-20, BP (81/54)- (124/71), 97% RA I: 21727 O: 9500--> Pt is ESRD and is on dialysis CTA yestrday showed: IMPRESSION: - Stable mild nonspecific hypoattenuation within the supratentorial white matter. No acute territorial infarcts. No pathologic enhancement intracranially. Stable scattered punctate calcifications. - No acute arterial occlusions and no significant arterial stenoses intracranially. No aneurysms. - Significant periapical lucency associated with the right mandibular canine with adjacent mandibular buccal cortical erosion. Echo showed: CONCLUSIONS Normal left ventricular systolic function with mild LVH. Severe Mitral regurgitation. Moderate Pulmonary hypertension. Mild Right ventricular enlargement. Left atrial enlargement. CXR yesterday: IMPRESSION: 1. No change in triple-lumen catheter positioning with tip in region of the right atrium. 2. Findings consistent with pulmonary edema with probable small bilateral pleural effusions. Compared to prior exam, no significant interval change is seen. ----- Had dialysis yesterday and is undergoing extra dialysis session today. Objective Vital Signs & I&O Last 8 Hrs of Vitals and I&O: -- Exam General Appearance: well developed/nourished, no apparent distress, alert, awake , comfortable Head: atraumatic, normal appearance Neck: normal inspection Respiratory: normal breath sounds, chest non-tender Cardiovascular: regular rate/rhythm Gastrointestinal: soft, non-tender Extremities: r. aka; dressing clean and intact, decreased edema in hands and l. leg Current Medications: Current Medications Sig/Bobo Start time Last Medication Dose Route Stop Time Status Admin Albumin Human 12.5 GM .Q30MIN PRN 01/02 1000 AC 01/04 IV 1058 Aspirin Buffered 81 MG DAILY 01/03 1000 AC 01/14 PO 1337 Atorvastatin Calcium 10 MG 17001/05 1700 AC 01/14 PO 1653 Bisacodyl 10 MG ONCE ONE 01/14 1400 DC 01/14 NV 01/14 1401 1447 Bisacodyl 5 MG DAILY 01/06 1345 AC 01/14 PO 1338 Cefazolin Sodium 2 GM 01/11 1000 AC 01/13 N/A 1 UNIT IV 122 Cinacalcet 30 MG 01/02 1700 AC 01/14 PO 165 Clopidogrel Bisulfate 75 MG 01/05 2000 AC 01/14 PO 2105 Cyanocobalamin 1,000 MCG DAILY 01/03 1000 AC 01/14 PO 1337 Docusate Sodium 100 MG DAILY 01/03 1000 AC 01/14 PO 1337 Epoetin Jaron 4,000 UNIT MoWeFr PRN 01/06 1000 AC IV Epoetin Jaron 3,000 UNIT MoWeFr PRN 01/06 1000 AC IV Heparin Sodium 25,000 UNIT Q12H 01/14 0730 AC 01/14 (Porcine) IV 2117 Sodium Chloride 500 ML Heparin Sodium 3,700 UNIT ONCE ONE 01/14 0300 DC 01/14 (Porcine) IV 01/14 0301 0300 Heparin Sodium 5,000 UNIT .STK-MED ONE 01/14 0253 DC (Porcine) IV 01/14 0254 Heparin Sodium 25,000 UNIT Q24H 01/10 0730 DC 01/13 (Porcine) IV 1651 Sodium Chloride 500 ML Hydrocortisone 50 MG Q8 01/10 06 AC 01/14 Sodium Succinate IV 2105 Insulin Aspart 0 TIDAC 01/13 0800 AC 01/14 SC 1652 Lidocaine/Prilocaine 1 GAVI DAILY PRN 01/02 1645 AC 01/14 TOP 0645 Morphine Sulfate 4 MG .STK-MED ONE 01/14 1443 DC IM 01/14 1444 Morphine Sulfate 2 MG Q4P PRN 01/02 1430 AC 01/14 IV 1447 Multivitamins 1 TAB DAILY 01/03 1000 AC 01/14 PO 1337 Polyethylene Glycol 17 GM DAILY 01/05 1349 AC 01/11 PO 1005 Senna 187 MG AT BEDTIME 01/05 2200 AC 01/14 PO 2105 Sevelamer Carbonate 2,400 MG WM 01/02 1700 AC 01/14 PO 1653 Impression/Plan Impression/Problem List Impression: ASSESSMENT: Patient is a 57-year-old male with past medical history significant for peripheral arterial disease status post right [id number] amputation, end -stage renal disease on hemodialysis, coronary artery disease status post PCI and 1 drug-eluting stent in the left main circumflex artery (September 2017) and status post quadruple CABG (2006), diabetes, history of obstructive sleep apnea on CPAP at night, chronic anemia, most recent admission for septic arthritis and staph aureus sepsis, mitral valve endocarditis, osteomyelitis, history of C. difficile presented this admission after he was found to be hypotensive and tachycardic during dialysis with report of recent fatigue and dyspnea. PLAN #Respiratory: Stable CXR positive for pulmonary congestion. * Continue CPAP at night Infectious #Septic shock, BCX x2 + MSSA X1; source of bacteremia remains unclear at this point differentials included following * Proline placement in L- IJ on 01/05 * Monitor fever and WBC curve. Pt is afebrile without white count on steriods * BCx2 seconds set negative BCx2 thirds set negative. Onlu admission cx + for MSSA. * Continue cefazolin 2g daily after dialysis 4 to 6 weeks. Cardiovascular #Atrial fibrillation: Pt is intermittently going in and out of A.fib 2/2 sepsis versus mitral valve regurgitation.Pt was started on Heparin on 12/28/2017. * Hb/HCT fluctuating over the last few days. Thought to be secondary to volume. Cannot rule out bleeding as he had episode of stump bleeding one week ago. Also his AV fistula con't sloowly ooze. However, he has required no transfusion over the last 3 days. Will continue heparin drip. #Hypotension: There is question if pt has cortisol deficiency with cortisol level of 7.8 or if his hypotension is due to autonomic insufficiency. He was initially on Levophed and then transitioned to Dopamine. He has been off all pressors >48hrs. Goal MAP 50-55 or if pt is symptomatic. * Hydrocortisone 50mg IV q8 * Appreciate endo and cardio input * Pt refuses midodrine due to adverse sfx. #CAD s/p stent and CABG : Chronic and stable * Continue Aspirin, Clopidogrel, statin #Mitral regurgitation and possible perforation on YULIA Possible mitral valve surgery as an outpatient * Third echo during this admission shows nml EF, wtih mild RV dialtion, mild RA dilation, severe MR, rvsp AT 5mmhg. #Type II RI: Resolved. Peak troponin 0.23 on 12/27 Hemetology #Chronic Anemia: Yesterday Hb 8.5/25.7 and toda at 9.4/28.3. No transfusion in last one week. * Con't monitor as pt on heparin drip #Leukocytosis: resolved Metabolic #Transaminitis -Resolved Likely reactive postop. Statin was initially held and later restarted Alimentary #Dialysis diet #Continue Colace MiraLAX and docusate Nephrology #ESRD: Next dialysis 01/16 * Use 12.5 g of 25% IV albumin Q30 PRN for SBP <100 for BP maintaince during dialysis * Continue Epojen, Sensipar and Sevelamer Neurology On 01/12 pt had headache and blurred vision w/ concern for a possible stroke vs PRE ASSEMBLY WIRER complication of endocarditis, such as a mycotic aneurysm or another embolic event. Pt clinically back to baseline. No further events. No neurologic sequelae * CT ruled out stroke * CTA shows no evidence of aneurysm, infarct or hemorrhage. However it did show: Significant periapical lucency associated with the right mandibular canine with adjacent mandibular buccal cortical erosion. Problem List: 1. Sepsis Pain Ratin Tomorrow's Labs & Rationales: cbc icu Plan DVT/Prophylaxis: mechanical, pharmacological
[2018-01-14 16:00] VITALS: BP 90/42
--- NOTE | 2018-01-14 17:58 | PN- Cardiology ---
Subjective Subjective: * No shortness of breath, lightheadedness or palpitations. Objective Vital Signs and I&Os Vital Signs Date Time Temp Pulse Resp B/P B/P Pulse O2 O2 Flow FiO2 Mean Ox Delivery Rate 01/14 1200 96.9 74 18 98/60 95 Room Air Room Air 01/14 0800 96.9 78 20 96/60 98 Room Air Room Air 01/14 0521 64 95 01/14 0400 95 CPAP 01/14 0317 63 96 01/14 0000 95 CPAP 01/14 0000 96.8 62 18 100/50 95 CPAP 01/14 0000 69 95 01/13 2159 78 98 01/14 2000 100 Room Air Room Air Intake & Output 01/14 1600 01/14 0801/14 0000 01/13 1600 01/13 0000 Intake Total 240 273.8 416 386 456 534 Output Total 1999 0 0 2500 Balance -1760 273.8 416 -2114 456 534 Intake, IV 273.8 296 266 406 354 Intake, Oral 240 0 120 120 50 180 Number 0 0 Bowel Movements Output, 1999 2500 Dialysate Output, Urine 0 0 0 Physical Exam: General: WD/WN male in NAD; alert and oriented x 3 Neck: no JVD Heart: RRR Lungs: scant crackles at the bases bilaterally Extremities: 2+ leg edema, Right BKA Assessment/Plan Assessment/Plan * No shortness of breath but leg edema and bibasilar crackles. Fluid management via dialysis. The patient appears hemodynamically stable. Considering his severe MR and recent NC consideration should be given to a cardiac catheterization/ revascularization to improve papillary muscle function unless review of his cath films shows that he is non-revascularizable. Continue telemetry? Yes
[2018-01-14 22:10] LABS: PTT 58 SEC (25-37)
[2018-01-15] VITALS: BP 92/54
[2018-01-15 06:07] LABS: ABSOLUTE BASOPHIL COUNT 0 /CUMM (0.0-0.2); ABSOLUTE EOSINOPHIL COUNT 0 /CUMM (0.0-0.7); ABSOLUTE GRANULOCYTE CT 4.3 /CUMM (1.4-6.5); ABSOLUTE LYMPH COUNT 0.7 /CUMM (1.2-3.4); ABSOLUTE MONOCYTE COUNT 0.2 /CUMM (0.10-0.60); BASOPHIL % 0.1 % (0.0-2.0); EOSINOPHIL % 0.2 % (0-5); GRANULOCYTE % 82.4 % (42.2-75.2); HEMATOCRIT 31.3 % (42-52); MEAN CORPUSCULAR HGB CONC 32.5 G/DL (33.0-37.0); MEAN CORPUSCULAR VOLUME 95.1 FL (80.0-94.0); MEAN PLATELET VOLUME 9.2 FL (7.4-10.4); PLATELET COUNT 129 /CUMM (130-400); RBC DISTRIBUTION WIDTH 17.8 % (11.5-14.5); WHITE BLOOD CELL COUNT 5.2 /CUMM (4.8-10.8)
[2018-01-15 06:40] LABS: PTT > 120 SEC (25-37)
[2018-01-15 08:00] VITALS: BP 97/61
--- NOTE | 2018-01-15 08:24 | PN- Endocrinology ---
Assessment/Plan Endoscopy Assessment: He remains on hydrocortisone 50 mg IV every 8 hours. His BP 90/42. Am lab showed Cr 3.5. He was put on Novolog coverage before meals which was adjusted on 01/14/2018 and his FSGs were 101, 225, 186 and 158. Plan: 1. continue Hydrocortisone 50 mg iv every 8 hours for now; 2. continue the current Novolog coverage before meals; 3. monitor FSGs, vital signs and electrolytes. will follow. Subjective Subjective: He feels okay this morning. Objective Last 24 Hrs of Vital Signs/I&O Vital Signs Date Time Temp Pulse Resp B/P B/P Pulse O2 O2 Flow FiO2 Mean Ox Delivery Rate 01/15 0801 18 98 Room Air 01/15 0529 71 97 01/15 0400 CPAP 01/15 0324 68 95 01/15 0015 72 95 01/15 0000 CPAP 01/15 0000 98.0 70 20 92/54 96 CPAP 01/14 2227 80 95 01/14 1600 98.9 74 18 90/42 95 Room Air Room Air 01/14 1200 96.9 74 18 98/60 95 Room Air Room Air Intake & Output 01/15 1600 01/15 0800 01/15 0000 Intake Total 265.8 729.2 Output Total 0 Balance 265.8 729.2 Intake, IV 265.8 329.2 Intake, Oral 0 400 Number 1 Bowel Movements Output, Urine 0 Patient 196 lb Weight Weight Bed scale Measurement Method Results Pertinent Lab/Brendan Results: Laboratory Tests 01/15 01/14 01/14 0510 0900 0845 Chemistry Sodium (137 - 145 mmol/L) 134 L Potassium (3.5 - 5.1 mmol/L) 3.5 Chloride (98 - 107 mmol/L) 97 L Carbon Dioxide (22 - 30 mmol/L) 28 Anion Gap (5 - 16) 8 BUN (9 - 20 mg/dL) 29 H Creatinine (0.7 - 1.2 mg/dL) 3.5 H Estimated GFR (>60 ml/min) 18 L Glucose (65 - 99 mg/dL) 136 H Calcium (8.4 - 10.2 mg/dL) 8.6 Phosphorus (2.5 - 4.5 mg/dL) 2.8 Magnesium (1.6 - 2.3 mg/dL) 2.0 Total Bilirubin (0.2 - 1.3 mg/dL) 0.3 AST (17 - 59 U/L) 10 L ALT (21 - 72 U/L) 23 Albumin (3.5 - 5.0 g/dL) 2.9 L Coagulation APTT (25 - 37 SEC) > 120 *H 58 H 73 H Hematology CBC w Diff NO MAN DIFF REQ WBC (4.8 - 10.8 /CUMM) 5.2 RBC (4.70 - 6.10 /CUMM) 3.30 L Hgb (14.0 - 18.0 G/DL) 10.2 L Hct (42 - 52 %) 31.3 L MCV (80.0 - 94.0 FL) 95.1 H MCH (27.0 - 31.0 PG) 31.0 MCHC (33.0 - 37.0 G/DL) 32.5 L RDW (11.5 - 14.5 %) 17.8 H Plt Count (130 - 400 /CUMM) 129 L MPV (7.4 - 10.4 FL) 9.2 Gran % (42.2 - 75.2 %) 82.4 H Lymphocytes % (20.5 - 51.1 %) 13.7 L Monocytes % (1.7 - 9.3 %) 3.6 Eosinophils % (0 - 5 %) 0.2 Basophils % (0.0 - 2.0 %) 0.1 Absolute Granulocytes (1.4 - 6.5 /CUMM) 4.3 Absolute Lymphocytes (1.2 - 3.4 /CUMM) 0.7 L Absolute Monocytes (0.10 - 0.60 /CUMM) 0.2 Absolute Eosinophils (0.0 - 0.7 /CUMM) 0 Absolute Basophils (0.0 - 0.2 /CUMM) 0
--- NOTE | 2018-01-15 09:32 | PN- Infect Dx ---
Subjective Subjective: Afebrile. He noted some shortness of breath overnight but feels improved today with no complaints. Objective Last 24 Hrs of Vital Signs/I&O Vital Signs Date Time Temp Pulse Resp B/P B/P Pulse O2 O2 Flow FiO2 Mean Ox Delivery Rate 01/15 0801 18 98 Room Air 01/15 0800 97.6 78 18 97/61 98 Room Air 01/15 0529 71 97 01/15 0400 CPAP 01/15 0324 68 95 01/15 0015 72 95 01/15 0000 CPAP 01/15 0000 98.0 70 20 92/54 96 CPAP 01/14 2227 80 95 01/14 1600 98.9 74 18 90/42 95 Room Air Room Air 01/14 1200 96.9 74 18 98/60 95 Room Air Room Air Intake & Output 01/15 1600 01/15 0800 01/15 0000 Intake Total 265.8 729.2 Output Total 0 Balance 265.8 729.2 Intake, IV 265.8 329.2 Intake, Oral 0 400 Number 1 Bowel Movements Output, Urine 0 Patient 196 lb Weight Weight Bed scale Measurement Method Physical Exam Other Physical Findings: He appears comfortable in no acute distress Neck left IJ triple lumen catheter with no inflammation at the site Lungs are clear Heart regular rhythm with a 1/6 systolic ejection murmur Extremities right AKA incision clean, with no erythema or drainage; left leg 1+ edema Results Last 24 Hours of Lab Results: Laboratory Tests 01/15 0510 Chemistry Sodium (137 - 145 mmol/L) 134 L Potassium (3.5 - 5.1 mmol/L) 3.5 Chloride (98 - 107 mmol/L) 97 L Carbon Dioxide (22 - 30 mmol/L) 28 Anion Gap (5 - 16) 8 BUN (9 - 20 mg/dL) 29 H Creatinine (0.7 - 1.2 mg/dL) 3.5 H Estimated GFR (>60 ml/min) 18 L Glucose (65 - 99 mg/dL) 136 H Calcium (8.4 - 10.2 mg/dL) 8.6 Phosphorus (2.5 - 4.5 mg/dL) 2.8 Magnesium (1.6 - 2.3 mg/dL) 2.0 Total Bilirubin (0.2 - 1.3 mg/dL) 0.3 AST (17 - 59 U/L) 10 L ALT (21 - 72 U/L) 23 Albumin (3.5 - 5.0 g/dL) 2.9 L Coagulation APTT (25 - 37 SEC) > 120 *H Hematology CBC w Diff NO MAN DIFF REQ WBC (4.8 - 10.8 /CUMM) 5.2 RBC (4.70 - 6.10 /CUMM) 3.30 L Hgb (14.0 - 18.0 G/DL) 10.2 L Hct (42 - 52 %) 31.3 L MCV (80.0 - 94.0 FL) 95.1 H MCH (27.0 - 31.0 PG) 31.0 MCHC (33.0 - 37.0 G/DL) 32.5 L RDW (11.5 - 14.5 %) 17.8 H Plt Count (130 - 400 /CUMM) 129 L MPV (7.4 - 10.4 FL) 9.2 Gran % (42.2 - 75.2 %) 82.4 H Lymphocytes % (20.5 - 51.1 %) 13.7 L Monocytes % (1.7 - 9.3 %) 3.6 Eosinophils % (0 - 5 %) 0.2 Basophils % (0.0 - 2.0 %) 0.1 Absolute Granulocytes (1.4 - 6.5 /CUMM) 4.3 Absolute Lymphocytes (1.2 - 3.4 /CUMM) 0.7 L Absolute Monocytes (0.10 - 0.60 /CUMM) 0.2 Absolute Eosinophils (0.0 - 0.7 /CUMM) 0 Absolute Basophils (0.0 - 0.2 /CUMM) 0 Last 24 Hours of Brendan Results: No new cultures Recent Imaging Studies: CT angiogram of the head January 13 negative for any arterial occlusion or aneurysm Assessment/Plan ID Impression: Stable, with blood pressure remaining stable off pressors, and with temperatures and white blood cell count remaining normal on Cefazolin now Day 20 of treatment for Staph aureus sepsis/possible endocarditis, now 18 days since negative blood cultures, with the YULIA revealing a perforation of the mitral valve leaflet and moderate to severe mitral regurgitation, for which he will require valve replacement, but with no evidence of a vegetation. He is now 13 days status post right AKA because of the concern of an infected right BKA stump, though the pathology did not reveal any significant inflammation. Suggestion: 1. Remove left IJ triple-lumen catheter if able to obtain peripheral IV access 2. Eventual mitral valve replacement per Cardiology 3. Continue Cefazolin after each dialysis to plan on a 6 week course of treatment
--- NOTE | 2018-01-15 11:25 | PN- CRCU ---
Subjective HPI/Critical Care Issues: Seen and examined this morning Sleeping this morning Did have dialysis yesterday no other significant events noted Mild dyspnea yesterday which has been improved lately Vital signs reviewed Laboratory data reviewed as noted white count 5.2 hemoglobin 10.2 platelets are adequate at 129 INR 1.24 upon admission cultures not done Patient continues to be on the cefazolin after each dialysis for a 6 week course of treatment Objective Current Medications: Current Medications Sig/Bobo Start time Last Medication Dose Route Stop Time Status Admin Albumin Human 12.5 GM .Q30MIN PRN 01/02 1000 AC 01/04 IV 1058 Aspirin Buffered 81 MG DAILY 01/03 1000 AC 01/15 PO 0838 Atorvastatin Calcium 10 [place] 17001/05 1700 AC 01/14 PO 1653 Bisacodyl 10 MG ONCE ONE 01/14 1400 DC 01/14 NH 01/14 1401 1447 Bisacodyl 5 MG DAILY 01/06 1345 AC 01/15 PO 0838 Cefazolin Sodium 2 GM 01/11 1000 AC 01/13 N/A 1 UNIT IV 1227 Cinacalcet 30 MG 01/02 1700 AC 01/14 PO 1654 Clopidogrel Bisulfate 75 MG 01/05 2000 AC 01/14 PO 2105 Cyanocobalamin 1,000 MCG DAILY 01/03 1000 AC 01/15 PO 0838 Docusate Sodium 100 MG DAILY 01/03 1000 AC 01/15 PO 0842 Epoetin Jaron 4,000 UNIT MoWeFr PRN 01/06 1000 AC IV Epoetin Jaron 3,000 UNIT MoWeFr PRN 01/06 1000 AC IV Heparin Sodium 3,700 UNIT ONCE ONE 01/14 2315 DC 01/14 (Porcine) IV 01/14 2316 2322 Heparin Sodium 5,000 UNIT .STK-MED ONE 01/14 2307 DC (Porcine) IV 01/14 2308 Heparin Sodium 25,000 UNIT Q12H 01/14 0730 AC 01/14 (Porcine) IV 211 Sodium Chloride 500 ML Hydrocortisone 50 MG Q8 01/10 06 AC 01/15 [place] 0501 Hydromorphone HCl 0.4 MG ONCE ONE 01/15 0900 CAN IV 01/15 09 Hydromorphone HCl 1 MG ONCE ONE 01/15 09 DC 01/15 PO 01/15 09 0902 Insulin Aspart 0 TIDAC 01/13 0800 AC 01/15 SC 0808 Lidocaine/Prilocaine 1 GAVI DAILY PRN 01/02 1645 AC 01/14 TOP 0645 Morphine Sulfate 4 MG .STK-MED ONE 01/14 1443 DC IM 01/14 1444 Morphine Sulfate 2 MG Q4P PRN 01/02 1430 AC 01/14 IV 1447 Multivitamins 1 TAB DAILY 01/03 1000 AC 01/15 PO 0838 Polyethylene Glycol 17 GM DAILY 01/05 1349 AC 01/11 PO 1005 Senna 187 MG AT BEDTIME 01/05 2200 AC 01/14 PO 2105 Sevelamer Carbonate 2,400 MG WM 01/02 1700 AC 01/15 PO 0807 Vital Signs & I&O Last 24 Hrs of Vitals and I&O: Vital Signs Date Time Temp Pulse Resp B/P B/P Pulse O2 O2 Flow FiO2 Mean Ox Delivery Rate 01/15 0801 18 98 Room Air 01/15 0800 97.6 78 18 97/61 98 Room Air 01/15 0529 71 97 01/15 0400 CPAP 01/15 0324 68 95 01/15 0015 72 95 01/15 0000 CPAP 01/15 0000 98.0 70 20 92/54 96 CPAP 01/14 2227 80 95 01/14 1600 98.9 74 18 90/42 95 Room Air Room Air 01/14 1200 96.9 74 18 98/60 95 Room Air Room Air Intake & Output 01/15 1600 01/15 0800 01/15 0000 Intake Total 265.8 729.2 Output Total 0 Balance 265.8 729.2 Intake, IV 265.8 329.2 Intake, Oral 0 400 Number 1 Bowel Movements Output, Urine 0 Patient 196 lb Weight Weight Bed scale Measurement Method Impression/Plan Impression/Plan Impression/Plan: He did have a CT head angiogram done yesterday which showed stable lesions no acute arterial occlusion or stenosis and it did show significant periapical lucency associated with right mandibular canine with adjacent mandibular buccal cortical erosion His echocardiogram done showed normal ejection fraction severe mitral regurgitation and moderate pulmonary hypertension Head: normocephalic atraumatic Eyes: sclera mild pallor anicteric conjunctiva mild pallor extraocular muscles normal Neck: JVP normal, carotids normal bilaterally Chest: lungs were clear bilaterally Heart: regular rhythm grade 2/6 midsystolic murmur Abdomen: soft no organomegaly nontender Extremities: amputation Neurological: grossly non focal Left triple-lumen catheter noted stable AV fistula noted in the left side with mild oozing IMPRESSION This a gentleman with coronary artery disease with previous CABG, end-stage renal Disease, previous PCI in 2017 now with normal ejection fraction, history of hypertension, questionable adrenal insufficiency, severe peripheral vascular disease with amputation on the right side with AKA, previous history of infected stump, recent mitral valve endocarditis with negative YULIA in end of December, severe mitral regurgitation with possible perforation, diabetes, on and off fever and chills with hypotension, previous elevated troponin, intermittent atrial fibrillation now on heparin now in ICU. Issues include * REsolved Sudden onset bilateral vision loss in a patient with atrial fibrillation on on heparin no clinical evidence suggestive of atheroembolism in the CT. Neuro is on board. 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 Infectious disease following on cefazolin after dialysis for a total of 6 weeks of rx (Day 20 of abx) * Severe peripheral vascular disease with above-knee amputation * End-stage renal disease on hemodialysis * Chronic anemia * Atrial fibrillation now on heparin * Severe mitral regurgitation, peripheral vascular disease, previous ischemic heart disease with normal ejection fraction - at this time with ongoing pulmonary edema on dialysis. There is a question of perforation in the posterior leaflet of the mitral valve which is being followed clinically * Persistent hypotension on and off - probable adrenal insufficiency, diabetes and endocrine on board on Solu-Cortef and insulin. * Severe PVD s/p AKA * RECOMMENDATIONS/plan * Continue current therapy * Dialysis to be done today * Continue steroids per endo (ask if this can be reduced) * His CT scan of the head reviewed he does seem to have probable dental caries. ID to comment on this to see with a would benefit from a dental evaluation * Continue to watch him today with his blood pressure and if it stable we will consider removing his triple-lumen tomorrow if peripheral access can be acheived * Cardiology to follow to eventually consider mitral valve replacement * Continue anticoagulation and ask cardiology to see with a can be transitioned to warfarin * Steroid management per endocrine probably can reduce his steroids to twice a day * PT not willing to consider midodrine (had a rash before which might help him) * We will follow closely
[2018-01-15 12:10] LABS: PTT 67 SEC (25-37)
--- NOTE | 2018-01-15 14:22 | PN- Resident CRCU ---
Impression/Plan Impression/Problem List Impression: 57-year-old gentleman with extensive medical history, staph aureus sepsis, end- stage renal disease on hemodialysis, chronic anemia, is now status post above knee amputation, afebrile and feels well overall. 1. Hypotension. Afebrile, with no other signs of infection. Currently on cefazolin. Status post proline placement. Unsure, if this is secondary to subnormal corticosteroid production due to critical illness. In the absence of any structural defects in the hypothalamic pituitary adrenal axis, this likely would be functional or relative adrenal insufficiency. Will order a.m. cortisol(levels less than 3) can be suggestive. We will request an endocrinology consult. Continue monitoring for any infection. Restart Levophed with a map goal of 60. 2. Chronic anemia. We'll continue to monitor. Likely secondary to low EPO levels owing to his kidney disease. Epogen dose has been increased. 3. Atrial fibrillation. Continue rate control and anticoagulation. 4. Continue hemodialysis. Full code. DVT prophylaxis with heparin. Renal dialysis diet. Plan DVT/Prophylaxis: mechanical, pharmacological
--- NOTE | 2018-01-15 14:57 | PN- Resident CRCU ---
Subjective HPI/CRCU Issues: No complaints this morning. Last night had episodes of dyspnea, spontaneous improvement with CPAP use. 24 Hour Events: Vitals. 98. Heart rate 62-71 sinus rhythm. Respiratory rate 18-20. Blood pressure 90 systolic/50s to 60s diastolic. Map 70. Saturating well on CPAP overnight 95%. Negative balance- Objective Vital Signs & I&O Last 8 Hrs of Vitals and I&O: Intake & Output 01/15 1600 Intake Total 597.6 Output Total 0 Balance 597.6 Intake, IV 297.6 Intake, Oral 300 Output, Urine 0 Vitals. 98. Heart rate 62-71 sinus rhythm. Respiratory rate 18-20. Blood pressure 90 systolic/50s to 60s diastolic. Exam General Appearance: no apparent distress Respiratory: normal breath sounds Cardiovascular: regular rate/rhythm Gastrointestinal: normal bowel sounds Extremities: normal inspection Current Medications: Current Medications Sig/Bobo Start time Last Medication Dose Route Stop Time Status Admin Albumin Human 12.5 GM .Q30MIN PRN 01/02 1000 AC 01/04 IV 1058 Aspirin Buffered 81 MG DAILY 01/03 1000 AC 01/15 PO 0838 Atorvastatin Calcium 10 MG 01/05 1700 AC 01/14 PO 1653 Bisacodyl 5 MG DAILY 01/06 1345 AC 01/15 PO 0838 Cefazolin Sodium 2 GM 01/11 1000 AC 01/13 N/A 1 UNIT IV 1227 Cinacalcet 30 MG 01/02 1700 AC 01/14 PO 1654 Clopidogrel Bisulfate 75 MG 01/05 2000 AC 01/14 PO 2105 Cyanocobalamin 1,000 MCG DAILY 01/03 1000 AC 01/15 PO 0838 Docusate Sodium 100 MG DAILY 01/03 1000 AC 01/15 PO 0842 Epoetin Jaron 4,000 UNIT MoWeFr PRN 01/06 1000 AC IV Epoetin Jaron 3,000 UNIT MoWeFr PRN 01/06 1000 AC IV Heparin Sodium 3,700 UNIT ONCE ONE 01/14 2315 DC 01/14 (Porcine) IV 01/14 231 2322 Heparin Sodium 5,000 UNIT .STK-MED ONE 01/147 DC (Porcine) IV 01/14 2308 Heparin Sodium 25,000 UNIT Q12H 01/14 0730 AC 01/15 (Porcine) IV 1132 Sodium Chloride 500 ML Hydrocortisone 50 MG Q8 01/10 0600 AC 01/15 Sodium Succinate IV 1256 Hydromorphone HCl 0.4 MG ONCE ONE 01/15 09 CAN IV 01/15 09 Hydromorphone HCl 1 MG ONCE ONE 01/15 0900 DC 01/15 PO 01/15 09 0902 Insulin Aspart 0 TIDAC 01/13 0800 AC 01/15 SC 1132 Lidocaine/Prilocaine 1 GAVI DAILY PRN 01/02 1645 AC 01/14 TOP 0645 Morphine Sulfate 2 MG Q4P PRN 01/02 1430 AC 01/14 IV 1447 Multivitamins 1 TAB DAILY 01/03 1000 AC 01/15 PO 0838 Polyethylene Glycol 17 GM DAILY 01/05 1349 AC 01/11 PO 1005 Senna 187 MG AT BEDTIME 01/05 2200 AC 01/14 PO 2105 Sevelamer Carbonate 2,400 MG WM 01/02 1700 AC 01/15 PO 1132 Impression/Plan Impression/Problem List Impression: 57-year-old gentleman with extensive medical history, staph aureus sepsis, end- stage renal disease on hemodialysis, chronic anemia, is now 13 days status post above knee amputation, afebrile and feels well overall. 1. Hypotension. Continues to be on hydrocortisone for relative adrenal insufficiency. Off pressor support. Patient reports allergy to Midodrine. Cefazolin to be continued. 2. Chronic anemia. We'll continue to monitor. Likely secondary to low EPO levels owing to his kidney disease. Epogen dose has been increased. 3. Atrial fibrillation. Continue rate control and anticoagulation-on IV heparin. Eventual transition to by mouth anticoagulation. 4. Continue hemodialysis. Full code. DVT prophylaxis with heparin. Renal dialysis diet. Problem List: 1. Osteomyelitis 2. A-fib Pain Ratin Tomorrow's Labs & Rationales: On abx On Heparin Plan DVT/Prophylaxis: mechanical, pharmacological
[2018-01-15 16:00] VITALS: BP 88/50
--- NOTE | 2018-01-15 16:25 | PN- Cardiology ---
Subjective Subjective: * Patient reports some chest discomfort and shortness of breath earlier in the day which is improved. Objective Vital Signs and I&Os Vital Signs Date Time Temp Pulse Resp B/P B/P Pulse O2 O2 Flow FiO2 Mean Ox Delivery Rate 01/15 1600 98 Nasal 2.0L Cannula 01/15 1429 18 98 Nasal 2.0L Cannula 01/15 1428 18 92 Room Air 01/15 0801 18 98 Room Air 01/15 0800 97.6 78 18 97/61 98 Room Air 01/15 0529 71 97 01/15 0400 CPAP 01/15 0324 68 95 01/15 0015 72 95 01/15 0000 CPAP 01/15 0000 98.0 70 20 92/54 96 CPAP 01/14 2227 80 95 Intake & Output 01/15 1600 01/15 0800 01/15 0000 01/14 1600 01/14 0800 01/14 0000 Intake Total 597.6 265.8 729.2 240 273.8 416 Output Total 0 0 2000 0 0 Balance 597.6 265.8 729.2 -1760 273.8 416 Intake, IV 297.6 265.8 329.2 273.8 296 Intake, Oral 300 0 400 240 0 120 Number 1 0 Bowel Movements Output, 2000 Dialysate Output, Urine 0 0 0 0 Patient 196 lb Weight Weight Bed scale Measurement Method Physical Exam: General: WD/WN male in NAD; alert and oriented x 3 Neck: no JVD Heart: RRR Lungs: scant crackles at the bases bilaterally Extremities: 2+ leg edema, Right BKA Assessment/Plan Assessment/Plan * No shortness of breath but leg edema and bibasilar crackles. Fluid management via dialysis. The patient appears hemodynamically stable. Considering his severe MR and recent MN consideration should be given to a cardiac catheterization/ revascularization to improve papillary muscle function and possible mitral valve repair. The patient should complete about 6 weeks of antibiotics prior to this so it is reasonable to begin chronic anticoagulation with coumadin in the meantime. Continue telemetry? Yes
[2018-01-15 23:51] LABS: PTT 74 SEC (25-37)
[2018-01-16] VITALS: BP 84/40
[2018-01-16 05:26] LABS: ABSOLUTE BASOPHIL COUNT 0 /CUMM (0.0-0.2); ABSOLUTE EOSINOPHIL COUNT 0 /CUMM (0.0-0.7); ABSOLUTE GRANULOCYTE CT 6.3 /CUMM (1.4-6.5); ABSOLUTE LYMPH COUNT 1.2 /CUMM (1.2-3.4); ABSOLUTE MONOCYTE COUNT 0.2 /CUMM (0.10-0.60); BASOPHIL % 0.3 % (0.0-2.0); EOSINOPHIL % 0.2 % (0-5); GRANULOCYTE % 81.3 % (42.2-75.2); MEAN CORPUSCULAR HGB 31.2 PG (27.0-31.0); MEAN CORPUSCULAR HGB CONC 32.5 G/DL (33.0-37.0); MEAN CORPUSCULAR VOLUME 95.8 FL (80.0-94.0); MEAN PLATELET VOLUME 9.3 FL (7.4-10.4); PLATELET COUNT 163 /CUMM (130-400); RBC DISTRIBUTION WIDTH 18.5 % (11.5-14.5); RED BLOOD CELL CT 2.51 /CUMM (4.70-6.10); WHITE BLOOD CELL COUNT 7.8 /CUMM (4.8-10.8)
[2018-01-16 05:28] LABS: PT 12.1 SEC (9.4-12.5)
--- NOTE | 2018-01-16 07:35 | PN- Endocrinology ---
Assessment/Plan Endoscopy Assessment: The patient feels okay. He still has some pain in the area of the right above- the-knee amputation. He still receives narcotic pain medicine. He is to be dialyzed today. The patient's blood sugars are in a satisfactory range. The patient remains on hydrocortisone intravenously 50 mg every 8 hours. He is off pressors. Plan: Suggest continue hydrocortisone 50 mg every 8 hours today. If he is able to stay off pressors after dialysis then we could reduce his hydrocortisone to 50 mg IV every 12 hours tomorrow. Continue NovoLog coverage before meals with a sliding scale as written. Subjective Subjective: Feels okay Review of Systems Constitutional: Denies: chills, fever. Cardiovascular: Denies: chest pain. Respiratory: Denies: cough, short of breath. Gastrointestinal: Denies: nausea, vomiting. Skin: Reports: no symptoms. Objective Last 24 Hrs of Vital Signs/I&O Vital Signs Date Time Temp Pulse Resp B/P B/P Pulse O2 O2 Flow FiO2 Mean Ox Delivery Rate 01/16 0541 64 97 01/16 0400 100 CPAP 01/16 0329 66 96 01/16 0034 70 96 01/16 0000 94 CPAP 01/16 0000 97.8 70 20 84/40 94 CPAP 01/15 2215 88 97 01/16 2000 98 Nasal 2.0L Cannula 01/15 1600 98 Nasal 2.0L Cannula 01/15 1600 97.7 71 20 88/50 98 Nasal 2.0L Cannula 01/15 1429 18 98 Nasal 2.0L Cannula 01/15 1428 18 92 Room Air 01/15 0801 18 98 Room Air 01/15 0800 97.6 78 18 97/61 98 Room Air Intake & Output 01/16 0800 01/16 0000 01/15 1600 Intake Total 300 580.4 597.6 Output Total 0 Balance 300 580.4 597.6 Intake, IV 260.4 297.6 Intake, Oral 50 320 300 Intake, 250 TPN/PPN Output, Urine 0 Vital Signs Date Time Temp Pulse Resp B/P B/P Pulse O2 O2 Flow FiO2 Mean Ox Delivery Rate 01/16 0541 64 97 01/16 0400 100 CPAP 01/16 0329 66 96 01/16 0034 70 96 01/16 0000 94 CPAP 01/16 0000 97.8 70 20 84/40 94 CPAP 01/15 2215 88 97 01/16 2000 98 Nasal 2.0L Cannula 01/15 1600 98 Nasal 2.0L Cannula 01/15 1600 97.7 71 20 88/50 98 Nasal 2.0L Cannula 01/15 1429 18 98 Nasal 2.0L Cannula 01/15 1428 18 92 Room Air 01/15 0801 18 98 Room Air 01/15 0800 97.6 78 18 97/61 98 Room Air Intake & Output 01/16 0800 01/16 0000 01/15 1600 Intake Total 300 580.4 597.6 Output Total 0 Balance 300 580.4 597.6 Intake, IV 260.4 297.6 Intake, Oral 50 320 300 Intake, 250 TPN/PPN Output, Urine 0 Physical Exam General Appearance: alert, awake, comfortable Head: normal appearance Neck: normal inspection Respiratory: normal breath sounds Cardiovascular: regular rate/rhythm Abdomen: normal bowel sounds, soft Current Medications: Current Medications Sig/Bobo Start time Last Medication Dose Route Stop Time Status Admin Albumin Human 12.5 GM .Q30MIN PRN 01/02 1000 AC 01/04 IV 1058 Aspirin Buffered 81 MG DAILY 01/03 1000 AC 01/15 PO 0838 Atorvastatin Calcium 10 MG 1700 01/05 1700 AC 01/15 PO 1709 Bisacodyl 5 MG DAILY 01/06 1345 AC 01/15 PO 0838 Cefazolin Sodium 2 GM 01/11 1000 AC 01/13 N/A 1 UNIT IV 1227 Cinacalcet 30 MG 0 01/02 1700 AC 01/15 PO 1709 Clopidogrel Bisulfate 75 MG 01/05 AC 01/15 PO 1935 Cyanocobalamin 1,000 MCG DAILY 01/03 1000 AC 01/15 PO 0838 Docusate Sodium 100 MG DAILY 01/03 1000 AC 01/15 PO 0842 Epoetin Jaron 4,000 UNIT MoWeFr PRN 01/06 1000 AC IV Epoetin Jaron 3,000 UNIT MoWeFr PRN 01/06 1000 AC IV Heparin Sodium 25,000 UNIT Q12H 01/14 0730 AC 01/16 (Porcine) IV 0553 Sodium Chloride 500 ML Hydrocortisone 50 MG Q8 01/10 0600 AC 01/16 Sodium Succinate IV 0553 Hydromorphone HCl 0.4 MG ONCE ONE 01/15 0900 CAN IV 01/15 09 Hydromorphone HCl 1 MG ONCE ONE 01/15 09 DC 01/15 PO 01/15 0901 0902 Insulin Aspart 0 TIDAC 01/13 0800 AC 01/15 SC 1709 Lidocaine/Prilocaine 1 GAVI DAILY PRN 01/02 1645 AC 01/14 TOP 0645 Morphine Sulfate 2 MG Q4P PRN 01/02 1430 AC 01/14 IV 1447 Multivitamins 1 TAB DAILY 01/03 1000 AC 01/15 PO 0838 Polyethylene Glycol 17 GM DAILY 01/05 1349 AC 01/11 PO 1005 Senna 187 MG AT BEDTIME 01/05 2200 AC 01/15 PO 2121 Sevelamer Carbonate 2,400 MG WM 01/02 1700 AC 01/15 PO 1709 Warfarin Sodium 5 MG COUMADIN 1700 ONE 01/15 1830 DC 01/15 PO 01/15 183 1935 Results Pertinent Lab/Brendan Results: Laboratory Tests 01/16 01/15 01/15 0406 2303 1100 Chemistry Sodium (137 - 145 mmol/L) 138 Potassium (3.5 - 5.1 mmol/L) 3.8 Chloride (98 - 107 mmol/L) 100 Carbon Dioxide (22 - 30 mmol/L) 26 Anion Gap (5 - 16) 12 BUN (9 - 20 mg/dL) 43 H Creatinine (0.7 - 1.2 mg/dL) 4.7 H Estimated GFR (>60 ml/min) 13 L Glucose (65 - 99 mg/dL) 128 H Calcium (8.4 - 10.2 mg/dL) 8.7 Phosphorus (2.5 - 4.5 mg/dL) 3.5 Magnesium (1.6 - 2.3 mg/dL) 2.0 Total Bilirubin (0.2 - 1.3 mg/dL) 0.3 AST (17 - 59 U/L) 9 L ALT (21 - 72 U/L) 19 L Albumin (3.5 - 5.0 g/dL) 2.8 L Coagulation PT (9.4 - 12.5 SEC) 12.1 INR (0.90 - 1.17) 1.11 APTT (25 - 37 SEC) 74 H 67 H Hematology CBC w Diff NO MAN DIFF REQ WBC (4.8 - 10.8 /CUMM) 7.8 RBC (4.70 - 6.10 /CUMM) 2.51 L Hgb (14.0 - 18.0 G/DL) 7.8 L Hct (42 - 52 %) 24.0 L MCV (80.0 - 94.0 FL) 95.8 H MCH (27.0 - 31.0 PG) 31.2 H MCHC (33.0 - 37.0 G/DL) 32.5 L RDW (11.5 - 14.5 %) 18.5 H Plt Count (130 - 400 /CUMM) 163 MPV (7.4 - 10.4 FL) 9.3 Gran % (42.2 - 75.2 %) 81.3 H Lymphocytes % (20.5 - 51.1 %) 15.5 L Monocytes % (1.7 - 9.3 %) 2.7 Eosinophils % (0 - 5 %) 0.2 Basophils % (0.0 - 2.0 %) 0.3 Absolute Granulocytes (1.4 - 6.5 /CUMM) 6.3 Absolute Lymphocytes (1.2 - 3.4 /CUMM) 1.2 Absolute Monocytes (0.10 - 0.60 /CUMM) 0.2 Absolute Eosinophils (0.0 - 0.7 /CUMM) 0 Absolute Basophils (0.0 - 0.2 /CUMM) 0
--- NOTE | 2018-01-16 07:52 | PN- Resident CRCU ---
Cricket MARTINEZ,Cathy 01/16/18 0752: Subjective HPI/CRCU Issues: Patient seen and examined. Getting dialysis, No overnight acute events -Pt continues to be off any pressors and maintaining MAP >50 with no change in mentation. -CPAP overnight Vitals Tmax 98.9, heart rate ranging in the 50s to 70s, normal sinus rhythm, respiratory rate 1020, manual blood pressure readings 80s Reyes to 60s map remains greater than 50, lowest MAP recordered 57 Input 1116 output 2500, ESRD on dialysis Labs WBC 7.8, H/H7.8/24 drop from 09/06, platelet count 163, creatinine 4.7 GFR 13 BUN 43, INR 1.11 Intervention planned for today -Repeat CBC in p.m. -Based Coumadin as per INR -Continue cefazolin Objective Vital Signs & I&O Last 8 Hrs of Vitals and I&O: Vital Signs Date Time Temp Pulse Resp B/P B/P Pulse O2 O2 Flow FiO2 Mean Ox Delivery Rate 01/16 1200 Room Air 01/16 0800 Room Air 01/16 0800 97.4 68 18 92/64 94 Room Air 01/16 0541 64 97 01/16 0400 100 CPAP 01/16 0329 66 96 01/16 0034 70 96 01/16 0000 94 CPAP 01/16 0000 97.8 70 20 84/40 94 CPAP 01/15 2215 88 97 01/15 2000 98 Nasal 2.0L Cannula 01/15 1600 98 Nasal 2.0L Cannula 01/15 1600 97.7 71 20 88/50 98 Nasal 2.0L Cannula 01/15 1429 18 98 Nasal 2.0L Cannula 01/15 1428 18 92 Room Air Intake & Output 01/16 1600 01/16 0800 01/16 0000 Intake Total 300 580.4 Output Total Balance 300 580.4 Intake, IV 260.4 Intake, Oral 50 320 Intake, 250 TPN/PPN Patient 192 lb 195 lb Weight Weight Bed scale Bed scale Measurement Method Intake & Output 01/16 1600 Intake Total Output Total Balance Patient 192 lb Weight Weight Bed scale Measurement Method Exam General Appearance: well developed/nourished, no apparent distress Other Physical Findings: Head: atraumatic, normal appearance Neck: normal inspection Respiratory: normal breath sounds, chest non-tender Cardiovascular: regular rate/rhythm Gastrointestinal: soft, non-tender Extremities: r. aka; dressing clean and intact, decreased edema in hands and l. leg Current Medications Current Medications: Current Medications Sig/Bobo Start time Last Medication Dose Route Stop Time Status Admin Albumin Human 12.5 GM .Q30MIN PRN 01/02 1000 AC 01/04 IV 1058 Aspirin Buffered 81 MG DAILY 01/03 1000 AC 01/16 PO 1222 Atorvastatin Calcium 10 MG 17001/05 1700 AC 01/15 PO 1709 Bisacodyl 5 MG DAILY 01/06 1345 AC 01/16 PO 1222 Cefazolin Sodium 2 GM 01/11 1000 AC 01/16 N/A 1 UNIT IV 1231 Cinacalcet 30 MG 01/02 1700 AC 01/15 PO 1709 Clopidogrel Bisulfate 75 MG 01/05 2000 AC 01/15 PO 1935 Cyanocobalamin 1,000 MCG DAILY 01/03 1000 AC 01/16 PO 1222 Docusate Sodium 100 MG DAILY 01/03 1000 AC 01/16 PO 1222 Epoetin Jaron 4,000 UNIT MoWeFr PRN 01/06 1000 AC IV Epoetin Jaron 3,000 UNIT MoWeFr PRN 01/06 1000 AC IV Heparin Sodium 25,000 UNIT Q12H 01/14 0730 AC 01/16 (Porcine) IV 0553 Sodium Chloride 500 ML Hydrocortisone 50 MG Q8 01/10 0600 AC 01/16 Sodium Succinate IV 0553 Hydromorphone HCl 1 MG ONCE ONE 01/16 0930 DC 01/16 PO 01/16 0931 1223 Insulin Aspart 0 TIDAC 01/13 0800 AC 01/15 SC 1709 Lidocaine/Prilocaine 1 GAVI DAILY PRN 01/02 1645 AC 01/16 TOP 0715 Morphine Sulfate 2 MG Q4P PRN 01/02 1430 DC 01/14 IV 1447 Multivitamins 1 TAB DAILY 01/03 1000 AC 01/16 PO 1222 Polyethylene Glycol 17 GM DAILY 01/05 1349 AC 01/11 PO 1005 Senna 187 MG AT BEDTIME 01/05 2200 AC 01/15 PO 2121 Sevelamer Carbonate 2,400 MG WM 01/02 1700 AC 01/16 PO 1246 Warfarin Sodium 5 MG COUMADIN 1700 ONE 01/16 1700 AC PO 01/16 1701 Warfarin Sodium 5 MG COUMADIN 1700 ONE 01/15 1830 DC 01/15 PO 01/15 1831 1935 Impression/Plan Impression/Problem List Impression: Patient is a 57-year-old male with past medical history significant for peripheral arterial disease status post right [id number] amputation, end- stage renal disease on hemodialysis, coronary artery disease status post PCI and 1 drug-eluting stent in the left main circumflex artery (September 2017) and status post quadruple CABG (2006), diabetes, history of obstructive sleep apnea on CPAP at night, chronic anemia, most recent admission for septic arthritis and staph aureus sepsis, mitral valve endocarditis, osteomyelitis, history of C. difficile presented this admission after he was found to be hypotensive and tachycardic during dialysis with report of recent fatigue and dyspnea. #Respiratory Stable CXR urinalysis was positive for pulmonary congestion. * Continue CPAP at night, Continue scheduled dialysis Infectious #Septic shock, BCX x2 + MSSA; source of bacteremia remains unclear at this point * S/p Proline placement in L- IJ on 01/05 on Pressors Goal MAP 50 to 55 * Monitor fever and WBC curve afebrile without white count on steriods * BCx2 seconds set negative BCx2 thirds set negative * Continue cefazolin 2g daily after dialysis 6 weeks Cardiovascular #Atrial fibrillation: Pt paroxysmal afib and is itnermittently going in and out of A.fib 2/2 sepsis versus mitral valve regurgitation.Pt was started on Heparin on 12/28/2017. Heparin drip has been held intermittently for surgery and drop in H&H 2/2 to postop bleeding from surgical site * Hb/HCT fluctuating over the last few days. Thought to be secondary to volume. Cannot rule out bleeding as he had episode of stump bleeding one week ago. Also his AV fistula con't sloowly ooze. However, he has required no transfusion over the last 3 days. * Patient has been transitioned to oral warfarin on 01/15 and is being discharged with heparin #Hypotension: There is question if pt has cortisol deficiency with cortisol level of 7.8 or if his hypotension is due to autonomic insufficiency. He was initially on Levophed and then transitioned to Dopamine. He has been off all pressors >48hrs. Goal MAP 50-55 or if pt is symptomatic. * Hydrocortisone 50mg IV q8 * Appreciate endo and cardio input * Pt refuses midodrine due to adverse sfx. #CAD s/p stent and CABG : Chronic and stable * Continue Aspirin, Clopidogrel, statin #Mitral regurgitation and possible perforation on SAM Possible mitral valve surgery as an outpatient * Echocardiogram today #Type II WI: Resolved. Peak troponin 0.23 on 12/27 Hemetology #Chronic Anemia H/H dropped from 9 to 6.8/21 on 01/05. Hemoglobin 8 to 9 is his baseline. He recieved 1 unit pRBCS postop on 01/03 and 1 units on 01/05. Likely secondary to bleeding from surgical site.CT scan negative for retroperitoneal bleed * Had a drop in H/H Etiology unknown * Repeat CBC @ 5pm transfusion goal hb<7 #Leukocytosis resolved Metabolic #Transaminitis -Resolved Likely reactive postop. Statin was initially held and later restarted Alimentary #Dialysis diet #Continue Colace MiraLAX and docusate Nephrology #ESRD: Next dialysis 01/14 * Use 12.5 g of 25% IV albumin Q30 PRN for SBP <100 for BP maintaince during dialysis * Continue Epojen, Sensipar and Sevelamer Neurology On 01/12 pt had headache and blurred vision w/ concern for a possible stroke vs CYTOLOGY TECHNOLOGIST complication of endocarditis, such as a mycotic aneurysm or another embolic event. Pt clinically back to baseline. No further events. No neurologic sequelae * CT ruled out stroke * CTA shows no evidence of aneurysm, infarct or hemorrhage. However it did show: Significant periapical lucency associated with the right mandibular canine with adjacent mandibular buccal cortical erosion. DVT prophylaxis IV Heparin Problem List: 1. Sepsis Pain Ratin Tomorrow's Labs & Rationales: cbc icu bundle Plan DVT/Prophylaxis: mechanical, pharmacological Saul Alvarenga MD 01/16/18 1119: Attending MD Review Statement Attending Sign Off Attending Cosign Statement: I have: examined this patient, reviewed avalbl EMR data, personally reviewd images, discussd w/resident/PA/CAPSULE FILLER, discussed mgmt plan w/whit, discussed mgmt plan w/CM, discussed mgmt plan w/pt, agreed w/resident/PA/CAPSULE FILLER, amended to note. Other Findings: Saul Evans M.D. have examined this patient, reviewed available EMR data, personally reviewed images, discussed with resident/PA/CAPSULE FILLER, discussed management plan with housestaff and nursing staff, discussed managment plan all of healthcare providers, discussed management plan with patient and/or family, agreed with resident/PA/CAPSULE FILLER. The past history and parts of the chart have been autopopulated. Impression 57 year old man * resolved blurry vision, headache * staph aureus sepsis * s/p aka * ESRD on HD * chronic anemia * a.fib on heparin gtt * s/p sam showing ? perforation in posterior leaflet without obvious clinical significance and will require surveillance * adrenal insufficiency Plan -endocrinology appreciated, cont solucortef, will follow recs -off pressors -f/u nephrology, ID, vascular surgery, cardiology -HD per renal -map goal 55 -cont a/c -f/u with cardiology regarding cardiac cath/possible valve replacement timing DVT prophylaxis at all times TTS 35 min
[2018-01-16 08:00] VITALS: BP 92/64
--- NOTE | 2018-01-16 10:33 | PN- Infect Dx ---
Subjective Subjective: Afebrile on steroids without complaints Objective Last 24 Hrs of Vital Signs/I&O Vital Signs Date Time Temp Pulse Resp B/P B/P Pulse O2 O2 Flow FiO2 Mean Ox Delivery Rate 01/16 0800 Room Air 01/16 0800 97.4 68 18 92/64 94 Room Air 01/16 0541 64 97 01/16 0400 100 CPAP 01/16 0329 66 96 01/16 0034 70 96 01/16 0000 94 CPAP 01/16 0000 97.8 70 20 84/40 94 CPAP 01/15 2215 88 97 01/15 2000 98 Nasal 2.0L Cannula 01/15 1600 98 Nasal 2.0L Cannula 01/15 1600 97.7 71 20 88/50 98 Nasal 2.0L Cannula 01/15 1429 18 98 Nasal 2.0L Cannula 01/15 1428 18 92 Room Air Intake & Output 01/16 1600 01/16 0800 01/16 0000 Intake Total 300 580.4 Output Total Balance 300 580.4 Intake, IV 260.4 Intake, Oral 50 320 Intake, 250 TPN/PPN Physical Exam Other Physical Findings: He appears comfortable in no acute distress Neck left IJ triple-lumen catheter with no inflammation at the site Lungs are clear Heart regular rhythm with a 1/6 systolic ejection murmur Extremities left upper extremity fistula with no active bleeding noted; right AKA dressing intact; left leg 1+ edema Results Last 24 Hours of Lab Results: Laboratory Tests 01/16 01/15 01/15 0406 2303 1100 Chemistry Sodium (137 - 145 mmol/L) 138 Potassium (3.5 - 5.1 mmol/L) 3.8 Chloride (98 - 107 mmol/L) 100 Carbon Dioxide (22 - 30 mmol/L) 26 Anion Gap (5 - 16) 12 BUN (9 - 20 mg/dL) 43 H Creatinine (0.7 - 1.2 mg/dL) 4.7 H Estimated GFR (>60 ml/min) 13 L Glucose (65 - 99 mg/dL) 128 H Calcium (8.4 - 10.2 mg/dL) 8.7 Phosphorus (2.5 - 4.5 mg/dL) 3.5 Magnesium (1.6 - 2.3 mg/dL) 2.0 Total Bilirubin (0.2 - 1.3 mg/dL) 0.3 AST (17 - 59 U/L) 9 L ALT (21 - 72 U/L) 19 L Albumin (3.5 - 5.0 g/dL) 2.8 L Coagulation PT (9.4 - 12.5 SEC) 12.1 INR (0.90 - 1.17) 1.11 APTT (25 - 37 SEC) 74 H 67 H Hematology CBC w Diff NO MAN DIFF REQ WBC (4.8 - 10.8 /CUMM) 7.8 RBC (4.70 - 6.10 /CUMM) 2.51 L Hgb (14.0 - 18.0 G/DL) 7.8 L Hct (42 - 52 %) 24.0 L MCV (80.0 - 94.0 FL) 95.8 H MCH (27.0 - 31.0 PG) 31.2 H MCHC (33.0 - 37.0 G/DL) 32.5 L RDW (11.5 - 14.5 %) 18.5 H Plt Count (130 - 400 /CUMM) 163 MPV (7.4 - 10.4 FL) 9.3 Gran % (42.2 - 75.2 %) 81.3 H Lymphocytes % (20.5 - 51.1 %) 15.5 L Monocytes % (1.7 - 9.3 %) 2.7 Eosinophils % (0 - 5 %) 0.2 Basophils % (0.0 - 2.0 %) 0.3 Absolute Granulocytes (1.4 - 6.5 /CUMM) 6.3 Absolute Lymphocytes (1.2 - 3.4 /CUMM) 1.2 Absolute Monocytes (0.10 - 0.60 /CUMM) 0.2 Absolute Eosinophils (0.0 - 0.7 /CUMM) 0 Absolute Basophils (0.0 - 0.2 /CUMM) 0 Last 24 Hours of Brendan Results: No new cultures Assessment/Plan ID Impression: Stable, with blood pressure remaining borderline, though stable so far on dialysis this morning, and with temperatures and white blood cell count remaining normal on Cefazolin now Day 21 of treatment for presumed Staph aureus endocarditis, now 19 days since negative blood cultures, with the YULIA revealing a perforation of the mitral valve leaflet and moderate to severe mitral regurgitation, for which he will require valve replacement. He is now 2 weeks status post right AKA because of the concern of an infected right BKA stump, though the pathology did not reveal any significant inflammation. His recent CTA of the head revealing a significant periapical lucency associated with the right mandibular canine with adjacent mandibular buccal cortical erosion is of unclear significance as he has no symptoms referable to this area and doubt this is the source of his Staph aureus; nevertheless, given the impending valve replacement, this may need to be addressed prior to the surgery. Suggestion: 1. Await decision regarding transfer for mitral valve replacement 2. Oral surgery evaluation prior to surgery 3. Continue Cefazolin after each dialysis
--- NOTE | 2018-01-16 11:05 | PN- Cardiology ---
Subjective Subjective: The patient is awake, alert Mild hypertensive episodes were noted overnight with systolic pressures of 80s; however, the patient was asymptomatic. The events of the last 24 hours as well as telemetry were reviewed. Review of Systems: The review of systems is negative for chest pains, palpitations nor lightheadedness. The remainder of the 14 point review of systems is noncontributory with the exception of above. Objective Vital Signs and I&Os Vital Signs Date Time Temp Pulse Resp B/P B/P Pulse O2 O2 Flow FiO2 Mean Ox Delivery Rate 01/16 08 Room Air 01/16 0800 97.4 68 18 92/64 94 Room Air 01/16 0541 64 97 01/16 0400 100 CPAP 01/16 0329 66 96 01/16 0034 70 96 01/16 0000 94 CPAP 01/16 0000 97.8 70 20 84/40 94 CPAP 01/15 2215 88 97 01/15 2000 98 Nasal 2.0L Cannula 01/15 1600 98 Nasal 2.0L Cannula 01/15 1600 97.7 71 20 88/50 98 Nasal 2.0L Cannula 01/15 1429 18 98 Nasal 2.0L Cannula 01/15 1428 18 92 Room Air Intake & Output 01/16 1600 01/16 0800 / 0000 01/15 1600 01/15 0800 01/15 0000 Intake Total 300 580.4 597.6 265.8 729.2 Output Total 0 0 Balance 300 580.4 597.6 265.8 729.2 Intake, IV 260.4 297.6 265.8 329.2 Intake, Oral 50 320 300 0 400 Intake, 250 TPN/PPN Number 1 Bowel Movements Output, Urine 0 0 Patient 196 lb Weight Weight Bed scale Measurement Method Physical Exam: General: Nontoxic, no apparent distress. HEENT: Sclera and conjunctiva within normal limits, without xanthelasmas. Neck: Carotids 2+ without bruits. Respiratory: Clear to auscultation, air movement is good, without accessory respiratory muscle use. Heart: Regular rate and rhythm, without murmurs, without JVD. Abdomen: Soft, nontender, no masses, normoactive bowel sounds. Extremities: Without clubbing, cyanosis, without edema. Neuro: Nonfocal exam, strength, 5 out of 5 Skin: Within normal limits without lesions. Psych: Mood and affect: Normal Current Medications: Current Medications Sig/Bobo Start time Last Medication Dose Route Stop Time Status Admin Albumin Human 12.5 GM .Q30MIN PRN 01/02 1000 AC 01/04 IV 1058 Aspirin Buffered 81 MG DAILY 01/03 1000 AC 01/15 PO 0838 Atorvastatin Calcium 10 MG 1700 01/05 1700 AC 01/15 PO 1709 Bisacodyl 5 MG DAILY 01/06 1345 AC 01/15 PO 0838 Cefazolin Sodium 2 GM 01/11 1000 AC 01/13 N/A 1 UNIT IV 1227 Cinacalcet 30 MG 17001/02 1700 AC 01/15 PO 1709 Clopidogrel Bisulfate 75 MG 01/05 2000 AC 01/15 PO 1935 Cyanocobalamin 1,000 MCG DAILY 01/03 1000 AC 01/15 PO 0838 Docusate Sodium 100 MG DAILY 01/03 1000 AC 01/15 PO 0842 Epoetin Jaron 4,000 UNIT MoWeFr PRN 01/06 1000 AC IV Epoetin Jaron 3,000 UNIT MoWeFr PRN 01/06 1000 AC IV Heparin Sodium 25,000 UNIT Q12H 01/14 0730 AC 01/16 (Porcine) IV 0553 Sodium Chloride 500 ML Hydrocortisone 50 MG Q8 01/10 0600 AC 01/16 Sodium Succinate IV 0553 Hydromorphone HCl 1 MG ONCE ONE 01/16 0930 DC PO 01/16 0931 Insulin Aspart 0 TIDAC 01/13 0800 AC 01/15 SC 1709 Lidocaine/Prilocaine 1 GAVI DAILY PRN 01/02 1645 AC 01/16 TOP 0715 Morphine Sulfate 2 MG Q4P PRN 01/02 1430 DC 01/14 IV 1447 Multivitamins 1 TAB DAILY 01/03 1000 AC 01/15 PO 0838 Polyethylene Glycol 17 GM DAILY 01/05 1349 AC 01/11 PO 1005 Senna 187 MG AT BEDTIME 01/05 2200 AC 01/15 PO 2121 Sevelamer Carbonate 2,400 MG WM 01/02 1700 AC 01/15 PO 1709 Warfarin Sodium 5 MG COUMADIN 1700 ONE 01/16 1700 AC PO 01/16 1701 Warfarin Sodium 5 MG COUMADIN 1700 ONE 01/15 1830 DC 01/15 PO 01/15 1831 1935 Results Last 48 Hrs of Labs/Mics: Laboratory Tests 01/16/18 1100: APTT Pending 01/16/18 0406: Anion Gap 12, Estimated GFR 13 L, Glucose 128 H, Calcium 8.7, Phosphorus 3.5, Magnesium 2.0, Total Bilirubin 0.3, AST 9 L, ALT 19 L, Albumin 2.8 L, PT 12.1 , INR 1.11, CBC w Diff NO MAN DIFF REQ, RBC 2.51 L, MCV 95.8 H, MCH 31.2 H, MCHC 32.5 L, RDW 18.5 H, MPV 9.3, Gran % 81.3 H, Lymphocytes % 15.5 L, Monocytes % 2.7, Eosinophils % 0.2, Basophils % 0.3, Absolute Granulocytes 6.3, Absolute Lymphocytes 1.2, Absolute Monocytes 0.2, Absolute Eosinophils 0, Absolute Basophils 0 01/15/18 2303: APTT 74 H 01/15/18 1100: APTT 67 H 01/15/18 0510: Anion Gap 8, Estimated GFR 18 L, Glucose 136 H, Calcium 8.6, Phosphorus 2.8, Magnesium 2.0, Total Bilirubin 0.3, AST 10 L, ALT 23, Albumin 2.9 L, APTT > 120 *H, CBC w Diff NO MAN DIFF REQ, RBC 3.30 L, MCV 95.1 H, MCH 31.0, MCHC 32.5 L, RDW 17.8 H, MPV 9.2, Gran % 82.4 H, Lymphocytes % 13.7 L, Monocytes % 3.6, Eosinophils % 0.2, Basophils % 0.1, Absolute Granulocytes 4.3, Absolute Lymphocytes 0.7 L, Absolute Monocytes 0.2, Absolute Eosinophils 0, Absolute Basophils 0 Assessment/Plan Assessment/Plan 1. Coronary disease by history status post coronary bypass surgery 2006 with complex PCI to the left main into the circumflex September 2017 with normal LV function 2. Hx of Hypertension, currently hypotensive with questionable adrenal insufficiency 3. Peripheral arterial disease status post prior amputation now S/P right AKA 4. End-stage renal disease on dialysis 5. 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 Repeat YULIA to 01/02/18 was negative for vegetations; however, with severe mitral regurgitation and possible perforation 6. Diabetes 7. Fever and chills with hypotension most likely secondary to sepsis. 8. Elevated troponins, minimal, not due to ACS 9. Intermittent atrial fibrillation possibly due to sepsis Coronary artery disease: The patient has known coronary artery disease, and a stable in regards to the same. He will continue his current medication regimen. A beta debbi will be initiated if able to tolerate from a blood pressure standpoint. Bacteremia: A YULIA demonstrated no vegetations; however, likely valvular perforation of the posterior mitral valve leaflet and moderate to severe regurgitation. He will likely require surgical intervention of his mitral valve. We will attempt to arrange for transfer and likely valve replacement during this admission. Atrial fibrillation: The patient has atrial fibrillation. Given the results of the YULIA demonstrating moderate to severe regurgitation, this is a likely etiology. Full anticoagulation will need to be maintained. Hypotension: Appreciate endocrinology input. The patient is currently being treated for adrenal insufficiency. Blood pressures have improved, and he is currently off of pressors. Continue telemetry? Yes
--- NOTE | 2018-01-16 11:27 | PN- Nephrology ---
Assessment/Plan Nephrology Assessment: ESRD - Remains off pressors. Respiratory status comfortable although remains overloaded. Getting HD today with fluid removal as tolerated. Will plan for HD tomorrow as well to avoid 72hr window without HD. Anemia - Epogen has been increased to 7000U TIW - will need to monitor Hg - sounds like from some active bleeding from foot - may need to increase further. MSSA bacteremia - Cultures neg. CT C/A/P unrevealing of source - ultimately thought to be stump. ID following - remains on abx - likely to just complete 4- 6 week course. Mitral regurg - Possible need for replacement during this admission. Suggestion: -HD today - >2L UF as tolerated -Epogen 7000U TIW Please call [phone] with ?'s Subjective Subjective: Pt seen and examined off dialysis Remains off pressors Breathing OK Objective Vital Signs and I&Os Vital Signs Date Time Temp Pulse Resp B/P B/P Pulse O2 O2 Flow FiO2 Mean Ox Delivery Rate 01/16 0800 Room Air 01/16 0800 97.4 68 18 92/64 94 Room Air 01/16 0541 64 97 01/16 0400 100 CPAP 01/16 0329 66 96 01/16 0034 70 96 01/16 0000 94 CPAP 01/16 0000 97.8 70 20 84/40 94 CPAP 01/15 2215 88 97 01/15 2000 98 Nasal 2.0L Cannula 01/15 1600 98 Nasal 2.0L Cannula 01/15 1600 97.7 71 20 88/50 98 Nasal 2.0L Cannula 01/15 1429 18 98 Nasal 2.0L Cannula 01/15 1428 18 92 Room Air Intake & Output 01/16 1600 01/16 0400 01/15 1600 01/15 0400 01/14 1600 01/14 0400 Intake Total 300 580.4 863.4 729.2 513.8 416 Output Total 0 0 2000 0 Balance 300 580.4 863.4 729.2 -1486.2 416 Intake, IV 260.4 563.4 329.2 273.8 296 Intake, Oral 50 320 300 400 240 120 Intake, 250 TPN/PPN Number 1 0 Bowel Movements Output, 2000 Dialysate Output, Urine 0 0 0 0 Patient 195 lb 196 lb Weight Weight Bed scale Bed scale Measurement Method Physical Exam: Gen - OK appearing HEENT - supple CV - RRR, no m/r/g Chest - decreased BS at bases Abd - soft, NTND Ext - +edema, s/p RLE amputation; LLA AVF +thrill/+bruit Neuro - AOX3, grossly nonfocal Current Medications: Current Medications Sig/Bobo Start time Last Medication Dose Route Stop Time Status Admin Albumin Human 12.5 GM .Q30MIN PRN 01/02 1000 AC 01/04 IV 1058 Aspirin Buffered 81 MG DAILY 01/03 1000 AC 01/15 PO 0838 Atorvastatin Calcium 10 MG 17001/05 1700 AC 01/15 PO 1709 Bisacodyl 5 MG DAILY 01/06 1345 AC 01/15 PO 0838 Cefazolin Sodium 2 GM 01/11 1000 AC 01/13 N/A 1 UNIT IV 1227 Cinacalcet 30 MG 01/02 1700 AC 01/15 PO 1709 Clopidogrel Bisulfate 75 MG 01/05 2000 AC 01/15 PO 1935 Cyanocobalamin 1,000 MCG DAILY 01/03 1000 AC 01/15 PO 0838 Docusate Sodium 100 MG DAILY 01/03 1000 AC 01/15 PO 0842 Epoetin Jaron 4,000 UNIT MoWeFr PRN 01/06 1000 AC IV Epoetin Jaron 3,000 UNIT MoWeFr PRN 01/06 1000 AC IV Heparin Sodium 25,000 UNIT Q12H 01/14 0730 AC 01/16 (Porcine) IV 0553 Sodium Chloride 500 ML Hydrocortisone 50 MG Q8 01/10 0600 AC 01/16 Sodium Succinate IV 0553 Hydromorphone HCl 1 MG ONCE ONE 01/16 0930 DC PO 01/16 0931 Insulin Aspart 0 TIDAC 01/13 0800 AC 01/15 SC 1709 Lidocaine/Prilocaine 1 GAVI DAILY PRN 01/02 1645 AC 01/16 TOP 0715 Morphine Sulfate 2 MG Q4P PRN 01/02 1430 DC 01/14 IV 1447 Multivitamins 1 TAB DAILY 01/03 1000 AC 01/15 PO 0838 Polyethylene Glycol 17 GM DAILY 01/05 1349 AC 01/11 PO 1005 Senna 187 MG AT BEDTIME 01/05 2200 AC 01/15 PO 2121 Sevelamer Carbonate 2,400 MG WM 01/02 1700 AC 01/15 PO 1709 Warfarin Sodium 5 MG COUMADIN 1700 ONE 01/16 1700 AC PO 01/16 170 Warfarin Sodium 5 MG COUMADIN 1699 ONE 01/15 1830 DC 01/15 PO 01/15 1831 1935 Results Pertinent Lab Results: Laboratory Tests 01/16 01/16 01/15 01/15 1100 0406 2303 1100 Chemistry Sodium (137 - 145 mmol/L) 138 Potassium (3.5 - 5.1 mmol/L) 3.8 Chloride (98 - 107 mmol/L) 100 Carbon Dioxide (22 - 30 mmol/L) 26 Anion Gap (5 - 16) 12 BUN (9 - 20 mg/dL) 43 H Creatinine (0.7 - 1.2 mg/dL) 4.7 H Estimated GFR (>60 ml/min) 13 L Glucose (65 - 99 mg/dL) 128 H Calcium (8.4 - 10.2 mg/dL) 8.7 Phosphorus (2.5 - 4.5 mg/dL) 3.5 Magnesium (1.6 - 2.3 mg/dL) 2.0 Total Bilirubin (0.2 - 1.3 mg/dL) 0.3 AST (17 - 59 U/L) 9 L ALT (21 - 72 U/L) 19 L Albumin (3.5 - 5.0 g/dL) 2.8 L Coagulation PT (9.4 - 12.5 SEC) 12.1 INR (0.90 - 1.17) 1.11 APTT (25 - 37 SEC) Pending 74 H 67 H Hematology CBC w Diff NO MAN DIFF REQ WBC (4.8 - 10.8 /CUMM) 7.8 RBC (4.70 - 6.10 /CUMM) 2.51 L Hgb (14.0 - 18.0 G/DL) 7.8 L Hct (42 - 52 %) 24.0 L MCV (80.0 - 94.0 FL) 95.8 H MCH (27.0 - 31.0 PG) 31.2 H MCHC (33.0 - 37.0 G/DL) 32.5 L RDW (11.5 - 14.5 %) 18.5 H Plt Count (130 - 400 /CUMM) 163 MPV (7.4 - 10.4 FL) 9.3 Gran % (42.2 - 75.2 %) 81.3 H Lymphocytes % (20.5 - 51.1 %) 15.5 L Monocytes % (1.7 - 9.3 %) 2.7 Eosinophils % (0 - 5 %) 0.2 Basophils % (0.0 - 2.0 %) 0.3 Absolute Granulocytes (1.4 - 6.5 /CUMM) 6.3 Absolute Lymphocytes (1.2 - 3.4 /CUMM) 1.2 Absolute Monocytes (0.10 - 0.60 /CUMM) 0.2 Absolute Eosinophils (0.0 - 0.7 /CUMM) 0 Absolute Basophils (0.0 - 0.2 /CUMM) 0 01/15 01/14 01/14 0510 0900 0845 Chemistry Sodium (137 - 145 mmol/L) 134 L Potassium (3.5 - 5.1 mmol/L) 3.5 Chloride (98 - 107 mmol/L) 97 L Carbon Dioxide (22 - 30 mmol/L) 28 Anion Gap (5 - 16) 8 BUN (9 - 20 mg/dL) 29 H Creatinine (0.7 - 1.2 mg/dL) 3.5 H Estimated GFR (>60 ml/min) 18 L Glucose (65 - 99 mg/dL) 136 H Calcium (8.4 - 10.2 mg/dL) 8.6 Phosphorus (2.5 - 4.5 mg/dL) 2.8 Magnesium (1.6 - 2.3 mg/dL) 2.0 Total Bilirubin (0.2 - 1.3 mg/dL) 0.3 AST (17 - 59 U/L) 10 L ALT (21 - 72 U/L) 23 Albumin (3.5 - 5.0 g/dL) 2.9 L Coagulation APTT (25 - 37 SEC) > 120 *H 58 H 73 H Hematology CBC w Diff NO MAN DIFF REQ WBC (4.8 - 10.8 /CUMM) 5.2 RBC (4.70 - 6.10 /CUMM) 3.30 L Hgb (14.0 - 18.0 G/DL) 10.2 L Hct (42 - 52 %) 31.3 L MCV (80.0 - 94.0 FL) 95.1 H MCH (27.0 - 31.0 PG) 31.0 MCHC (33.0 - 37.0 G/DL) 32.5 L RDW (11.5 - 14.5 %) 17.8 H Plt Count (130 - 400 /CUMM) 129 L MPV (7.4 - 10.4 FL) 9.2 Gran % (42.2 - 75.2 %) 82.4 H Lymphocytes % (20.5 - 51.1 %) 13.7 L Monocytes % (1.7 - 9.3 %) 3.6 Eosinophils % (0 - 5 %) 0.2 Basophils % (0.0 - 2.0 %) 0.1 Absolute Granulocytes (1.4 - 6.5 /CUMM) 4.3 Absolute Lymphocytes (1.2 - 3.4 /CUMM) 0.7 L Absolute Monocytes (0.10 - 0.60 /CUMM) 0.2 Absolute Eosinophils (0.0 - 0.7 /CUMM) 0 Absolute Basophils (0.0 - 0.2 /CUMM) 0 01/14 01/13 0055 1658 Chemistry Sodium (137 - 145 mmol/L) 137 Potassium (3.5 - 5.1 mmol/L) 3.6 Chloride (98 - 107 mmol/L) 99 Carbon Dioxide (22 - 30 mmol/L) 28 Anion Gap (5 - 16) 11 BUN (9 - 20 mg/dL) 32 H Creatinine (0.7 - 1.2 mg/dL) 3.9 H Estimated GFR (>60 ml/min) 16 L Glucose (65 - 99 mg/dL) 126 H Calcium (8.4 - 10.2 mg/dL) 8.2 L Phosphorus (2.5 - 4.5 mg/dL) 2.9 Magnesium (1.6 - 2.3 mg/dL) 2.0 Total Bilirubin (0.2 - 1.3 mg/dL) 0.3 AST (17 - 59 U/L) 7 L ALT (21 - 72 U/L) 17 L Albumin (3.5 - 5.0 g/dL) 2.7 L Coagulation APTT (25 - 37 SEC) 59 H Hematology CBC w Diff NO MAN DIFF REQ NO MAN DIFF REQ WBC (4.8 - 10.8 /CUMM) 4.4 L 5.2 RBC (4.70 - 6.10 /CUMM) 3.04 L 2.74 L Hgb (14.0 - 18.0 G/DL) 9.4 L 8.5 L Hct (42 - 52 %) 28.3 L 25.7 L MCV (80.0 - 94.0 FL) 93.2 93.7 MCH (27.0 - 31.0 PG) 30.8 31.1 H MCHC (33.0 - 37.0 G/DL) 33.0 33.2 RDW (11.5 - 14.5 %) 16.8 H 16.9 H Plt Count (130 - 400 /CUMM) 146 171 MPV (7.4 - 10.4 FL) 9.1 9.0 Gran % (42.2 - 75.2 %) 79.8 H 85.6 H Lymphocytes % (20.5 - 51.1 %) 15.5 L 9.4 L Monocytes % (1.7 - 9.3 %) 4.4 3.9 Eosinophils % (0 - 5 %) 0.1 0.9 Basophils % (0.0 - 2.0 %) 0.2 0.2 Absolute Granulocytes (1.4 - 6.5 /CUMM) 3.5 4.5 Absolute Lymphocytes (1.2 - 3.4 /CUMM) 0.7 L 0.5 L Absolute Monocytes (0.10 - 0.60 /CUMM) 0.2 0.2 Absolute Eosinophils (0.0 - 0.7 /CUMM) 0 0 Absolute Basophils (0.0 - 0.2 /CUMM) 0 0 03/09 1240 Coagulation APTT (25 - 37 SEC) 73 H Imaging/Other Studies: None new
[2018-01-16 12:00] LABS: PTT 105 SEC (25-37)
[2018-01-16 15:41] VITALS: BP 100/60
[2018-01-16 19:55] LABS: ABSOLUTE BASOPHIL COUNT 0 /CUMM (0.0-0.2); ABSOLUTE EOSINOPHIL COUNT 0 /CUMM (0.0-0.7); ABSOLUTE GRANULOCYTE CT 6.9 /CUMM (1.4-6.5); ABSOLUTE LYMPH COUNT 0.8 /CUMM (1.2-3.4); ABSOLUTE MONOCYTE COUNT 0.2 /CUMM (0.10-0.60); BASOPHIL % 0.1 % (0.0-2.0); EOSINOPHIL % 0.1 % (0-5); HEMATOCRIT 24.9 % (42-52); MEAN CORPUSCULAR HGB 31.2 PG (27.0-31.0); MEAN CORPUSCULAR HGB CONC 32.5 G/DL (33.0-37.0); MEAN CORPUSCULAR VOLUME 96.1 FL (80.0-94.0); MEAN PLATELET VOLUME 9.4 FL (7.4-10.4); PLATELET COUNT 163 /CUMM (130-400); RBC DISTRIBUTION WIDTH 18.3 % (11.5-14.5); RED BLOOD CELL CT 2.59 /CUMM (4.70-6.10); WHITE BLOOD CELL COUNT 7.9 /CUMM (4.8-10.8)
[2018-01-16 20:05] LABS: GRANULOCYTE % 87.6 % (42.2-75.2)
[2018-01-16 20:10] LABS: PTT 54 SEC (25-37)
[2018-01-17] VITALS: BP 118/70
[2018-01-17 03:13] LABS: ABSOLUTE BASOPHIL COUNT 0 /CUMM (0.0-0.2); ABSOLUTE EOSINOPHIL COUNT 0 /CUMM (0.0-0.7); ABSOLUTE GRANULOCYTE CT 5.7 /CUMM (1.4-6.5); ABSOLUTE LYMPH COUNT 0.8 /CUMM (1.2-3.4); ABSOLUTE MONOCYTE COUNT 0.2 /CUMM (0.10-0.60); BASOPHIL % 0.2 % (0.0-2.0); EOSINOPHIL % 0 % (0-5); GRANULOCYTE % 84.9 % (42.2-75.2); HEMATOCRIT 24.6 % (42-52); MEAN CORPUSCULAR HGB CONC 32.4 G/DL (33.0-37.0); MEAN CORPUSCULAR VOLUME 95.5 FL (80.0-94.0); MEAN PLATELET VOLUME 9.2 FL (7.4-10.4); PLATELET COUNT 158 /CUMM (130-400); RBC DISTRIBUTION WIDTH 17.9 % (11.5-14.5); RED BLOOD CELL CT 2.57 /CUMM (4.70-6.10); WHITE BLOOD CELL COUNT 6.7 /CUMM (4.8-10.8)
[2018-01-17 03:26] LABS: PTT 70 SEC (25-37)
--- NOTE | 2018-01-17 07:52 | PN- Resident CRCU ---
Fazal MARTINEZ,Sommer 01/17/18 0752: Subjective HPI/CRCU Issues: Patient had no issues overnight. Patient reports 6 out of 10 right leg pain at the area of his right AKA. Patient reports increased swelling in his left lower extremity. Denies any chest pain, palpitations, shortness of breath, lightheadedness, dizziness, nausea/vomiting, abdominal pain, fever/chills. Vitals: MAXIMUM TEMPERATURE of 97.4, heart rate ranging between mid 50s 80, blood pressure ranging between 85/49 110/64, MAP greater than 55, respiration rate 16-20, 94-98% room air, receiving IV heparin through left IJ triple-lumen catheter Input: 1481.8, output 2500 Labs: H&H 8.0 and 24.6 stable from overnight, creatinine 3.8, BUN 32, INR 2.0 Fingerstick: 203, 168, 176 Objective Vital Signs & I&O Last 8 Hrs of Vitals and I&O: Intake & Output 01/17 1600 Intake Total Output Total Balance Patient 193 lb Weight Weight Bed scale Measurement Method Exam General Appearance: well developed/nourished, no apparent distress, alert, awake Head: atraumatic, normal appearance Respiratory: normal breath sounds, chest non-tender, no respiratory distress, quiet respiration Cardiovascular: irregularly irregular Gastrointestinal: normal bowel sounds, soft, non-tender Extremities: left lower extremity pitting edema 2+, right AKA covered with dressing Current Medications: Current Medications Sig/Bobo Start time Last Medication Dose Route Stop Time Status Admin Albumin Human 12.5 GM .Q30MIN PRN 01/02 1000 AC 01/04 IV 1058 Aspirin Buffered 81 MG DAILY 01/03 1000 AC 01/17 PO 09 Atorvastatin Calcium 10 MG 01/05 1700 AC 01/16 PO 172 Bisacodyl 5 MG DAILY 01/06 1345 AC 01/17 PO 09 Cefazolin Sodium 2 GM 01/11 1000 AC 01/16 N/A 1 UNIT IV 1231 Cinacalcet 30 MG 01/02 1700 AC 01/16 PO 172 Clopidogrel Bisulfate 75 MG 01/05 AC 01/16 PO 203 Cyanocobalamin 1,000 MCG DAILY 01/03 1000 AC 01/17 PO 956 Docusate Sodium 100 MG DAILY 01/03 1000 AC 01/17 PO 0957 Epoetin Jaron 4,000 UNIT MoWeFr PRN 01/06 1000 AC IV Epoetin Jaron 3,000 UNIT MoWeFr PRN 01/06 1000 AC IV Heparin Sodium 25,000 UNIT Q12H 01/14 0730 AC 01/17 (Porcine) IV 1334 Sodium Chloride 500 ML Hydrocortisone 50 MG Q12 01/17 2200 AC Sodium Succinate IV Hydrocortisone 50 MG Q8 01/10 0600 DC 01/17 Sodium Succinate IV 0522 Hydromorphone HCl 2 MG ONCE ONE 01/17 0845 DC 01/17 PO 01/17 0846 0957 Hydromorphone HCl 1 MG 5PM PRN 01/16 1545 DC PO Insulin Aspart 0 TIDAC 01/13 0800 AC 01/17 SC 1149 Lidocaine/Prilocaine 1 GAVI DAILY PRN 01/02 1645 AC 01/16 TOP 0715 Multivitamins 1 TAB DAILY 01/03 1000 AC 01/17 PO 0957 Polyethylene Glycol 17 GM DAILY 01/05 1349 AC 01/11 PO 1005 Senna 187 MG AT BEDTIME 01/05 2200 AC 01/16 PO 2131 Sevelamer Carbonate 2,400 MG WM 01/02 1700 AC 01/17 PO 1149 Warfarin Sodium 3 MG COUMADIN 1700 01/17 1700 AC PO 01/17 2359 Warfarin Sodium 5 MG COUMADIN 1700 ONE 01/16 1700 DC 01/16 PO 01/16 1701 1821 Impression/Plan Impression/Problem List Impression: Patient is a 57-year-old male with past medical history significant for peripheral arterial disease status post right [id number] amputation, end- stage renal disease on hemodialysis, coronary artery disease status post PCI and 1 drug-eluting stent in the left main circumflex artery (September 2017) and status post quadruple CABG (2006), diabetes, history of obstructive sleep apnea on CPAP at night, chronic anemia, most recent admission for septic arthritis and staph aureus sepsis, mitral valve endocarditis, osteomyelitis, history of C. difficile presented this admission after he was found to be hypotensive and tachycardic during dialysis with report of recent fatigue and dyspnea. #Respiratory Stable CXR showing pulmonary congestion on 01/13. Patient is currently stable on room air with normal lung exam. * Continue CPAP at night * Continue scheduled dialysis- MWF Infectious #Septic shock, BCX x2 + MSSA; source of bacteremia remains unclear at this point * S/p L- IJ on 01/05 currently off Pressors with Goal MAP 50 to 55 * Monitor fever and WBC curve afebrile without white count on steriods * BCx2 seconds set negative BCx2 thirds set negative * Continue cefazolin 2g daily after dialysis for a total of 6 weeks Cardiovascular #Atrial fibrillation: Pt paroxysmal afib and is itnermittently going in and out of A.fib 2/2 sepsis versus mitral valve regurgitation.Pt was started on Heparin on 12/28/2017. Heparin drip has been held intermittently for surgery and drop in H&H 2/2 to postop bleeding from surgical site * Hb/HCT fluctuating over the last few days. Thought to be secondary to volume. Cannot rule out bleeding as he had episode of stump bleeding one week ago. Also his AV fistula con't sloowly ooze. However, he has required no transfusion over the last 3 days. * Patient has been transitioned to oral warfarin on 01/15. Currently being bridged with IV heparin. Continue to dose coumadin and monitor INR. #Hypotension: There is question if pt has cortisol deficiency with cortisol level of 7.8 or if his hypotension is due to autonomic insufficiency. He was initially on Levophed and then transitioned to Dopamine. He has been off all pressors >48hrs. Goal MAP 50-55 or if pt is symptomatic. * Hydrocortisone 50mg IV decreased to q12h * Appreciate endo and cardio input * Pt refuses midodrine due to adverse sfx. #CAD s/p stent and CABG : Chronic and stable * Continue Aspirin, Clopidogrel, statin #Mitral regurgitation and possible perforation on SAM Possible mitral valve surgery as an outpatient vs inpatient. Patient will likely require outpatient repair as he requires a total of 6 weeks of antibitoic therapy. * Will confirm with ID and Cardiology #Type II IL: Resolved. Peak troponin 0.23 on 12/27 Hemetology #Chronic Anemia H/H dropped from 08/04 to 6.8/21 on 01/05. Hemoglobin 8 to 9 is his baseline. He recieved 1 unit pRBCS postop on 01/03 and 1 units on 01/05. Likely secondary to bleeding from surgical site.CT scan negative for retroperitoneal bleed. H/H stable today @ 8&24 #Leukocytosis resolved Metabolic #Transaminitis -Resolved Likely reactive postop. 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 Pt clinically back to baseline. No further events. No neurologic sequelae * CT ruled out stroke * CTA shows no evidence of aneurysm, infarct or hemorrhage. However it did show: Significant periapical lucency associated with the right mandibular canine with adjacent mandibular buccal cortical erosion. DVT prophylaxis IV Heparin bridging with coumadin Problem List: 1. A-fib 2. Osteomyelitis Pain Ratin Pain Location: Right leg - above the knee Tomorrow's Labs & Rationales: CBC, BEP, INR Plan DVT/Prophylaxis: mechanical, pharmacological Saul Alvarenga MD 01/17/18 1051: Attending MD Review Statement Attending Sign Off Attending Cosign Statement: I have: examined this patient, reviewed avalbl EMR data, personally reviewd images, discussd w/resident/PA/DISABILITY INSURANCE CLAIM EXAMINER, discussed mgmt plan w/whit, discussed mgmt plan w/CM, discussed mgmt plan w/pt, agreed w/resident/PA/DISABILITY INSURANCE CLAIM EXAMINER, amended to note. Other Findings: ISaul M.D. have examined this patient, reviewed available EMR data, personally reviewed images, discussed with resident/PA/DISABILITY INSURANCE CLAIM EXAMINER, discussed management plan with housestaff and nursing staff, discussed managment plan all of healthcare providers, discussed management plan with patient and/or family, agreed with resident/PA/DISABILITY INSURANCE CLAIM EXAMINER. The past history and parts of the chart have been autopopulated. Impression 57 year old man * staph aureus sepsis * s/p aka * ESRD on HD * chronic anemia * a.fib on heparin gtt * s/p sam showing ? perforation in posterior leaflet without obvious clinical significance and will require surveillance * adrenal insufficiency Plan -taper steroids per endocrinology -no longer on pressors -f/u nephrology, ID, vascular surgery, cardiology -HD per renal -map goal 55 -cont a/c -f/u with cardiology regarding cardiac cath/possible valve replacement timing -if remains hemodynamically stable will transfer to telemetry DVT prophylaxis at all times TTS 35 min
--- NOTE | 2018-01-17 07:57 | PN- Cardiology ---
Subjective Subjective: Patient is lethargic complains of shortness of breath. Review of Systems: Eyes no blurred or double vision Ears no deafness or ringing Nose and throat no recurrent sinusitis Lungs per history of present illness Heart per history of present illness Abdomen no nausea vomiting Musculoskeletal occasional muscle and joint pains Psych no anxiety or depression Neuro without recurrent headache or seizures Endocrine no heat or cold intolerance Objective Vital Signs and I&Os Vital Signs Date Time Temp Pulse Resp B/P B/P Pulse O2 O2 Flow FiO2 Mean Ox Delivery Rate 01/17 0556 66 95 01/17 0400 94 CPAP 01/17 0300 67 96 01/17 0035 72 95 01/17 0000 96 CPAP 01/17 0000 97.8 72 22 118/70 96 CPAP 01/16 1541 97.4 76 15 100/60 96 Room Air 01/16 1200 Room Air 01/16 0800 Room Air 01/16 0800 97.4 68 18 92/64 94 Room Air Intake & Output 01/17 0800 01/17 0000 01/16 1600 01/16 0800 01/16 0000 01/15 1600 Intake Total 2818 658.8 523 300 580.4 597.6 Output Total 2500 0 Balance 2818 658.8 -1977 300 580.4 597.6 Intake, 2500 Dialysate Intake, IV 268 358.8 283 260.4 297.6 Intake, Oral 50 300 240 50 320 300 Intake, 250 TPN/PPN Output, 2500 Dialysate Output, Urine 0 Patient 160 lb 192 lb 195 lb Weight Weight Bed scale Bed scale Measurement Method Physical Exam: Patient is a well-developed well-nourished male appearing in no acute distress HEENT is unremarkable Neck is supple there is no JVD Lungs are clear Heart regular rhythm S1 and S2 are normal no murmurs gallops or rubs Abdomen bowel sounds positive Extremities without edema Current Medications: Current Medications Sig/Bobo Start time Last Medication Dose Route Stop Time Status Admin Albumin Human 12.5 GM .Q30MIN PRN 01/02 1000 AC 01/04 IV 1058 Aspirin Buffered 81 MG DAILY 01/03 1000 AC 01/16 PO 1222 Atorvastatin Calcium 10 MG 1700 01/05 1700 AC 01/16 PO 1725 Bisacodyl 5 MG DAILY 01/06 1345 AC 01/16 PO 1222 Cefazolin Sodium 2 GM 01/11 1000 AC 01/16 N/A 1 UNIT IV 1231 Cinacalcet 30 MG 1700 01/02 1700 AC 01/16 PO 1725 Clopidogrel Bisulfate 75 MG 01/05 AC 01/16 PO 2032 Cyanocobalamin 1,000 MCG DAILY 01/03 1000 AC 01/16 PO 1222 Docusate Sodium 100 MG DAILY 01/03 1000 AC 01/16 PO 1222 Epoetin Jaron 4,000 UNIT MoWeFr PRN 01/06 1000 AC IV Epoetin Jaron 3,000 UNIT MoWeFr PRN 01/06 1000 AC IV Heparin Sodium 25,000 UNIT Q12H 01/14 0730 AC 01/16 (Porcine) IV 2033 Sodium Chloride 500 ML Hydrocortisone 50 MG Q8 01/10 0600 AC 01/17 Sodium Succinate IV 0522 Hydromorphone HCl 1 MG 5PM PRN 01/16 1545 DC PO Hydromorphone HCl 1 MG ONCE ONE 01/16 0930 DC 01/16 PO 01/16 0931 1223 Insulin Aspart 0 TIDAC 01/13 0800 AC 01/16 SC 1634 Lidocaine/Prilocaine 1 GAVI DAILY PRN 01/02 1645 AC 01/16 TOP 0715 Morphine Sulfate 2 MG Q4P PRN 01/02 1430 DC 01/14 IV 1447 Multivitamins 1 TAB DAILY 01/03 1000 AC 01/16 PO 1222 Polyethylene Glycol 17 GM DAILY 01/05 1349 AC 01/11 PO 1005 Senna 187 MG AT BEDTIME 01/05 2200 AC 01/16 PO 2131 Sevelamer Carbonate 2,400 MG WM 01/02 1700 AC 01/16 PO 1634 Warfarin Sodium 5 MG COUMADIN 1700 ONE 01/16 1700 DC 01/16 PO 01/16 1701 1821 Results Last 48 Hrs of Labs/Mics: Laboratory Tests 01/17/18 0500: PT Cancelled, INR Cancelled 01/17/18 0230: Anion Gap 11, Estimated GFR 17 L, Glucose 180 H, Calcium 8.5, Phosphorus 3.1, Magnesium 2.0, Total Bilirubin 0.4, AST 4 L, ALT 18 L, Albumin 3.0 L, PT 22.0 H, INR 2.00 H, APTT 70 H, CBC w Diff NO MAN DIFF REQ, RBC 2.57 L, MCV 95.5 H, MCH 31.0, MCHC 32.4 L, RDW 17.9 H, MPV 9.2, Gran % 84.9 H, Lymphocytes % 11.7 L, Monocytes % 3.2, Eosinophils % 0, Basophils % 0.2, Absolute Granulocytes 5.7, Absolute Lymphocytes 0.8 L, Absolute Monocytes 0.2, Absolute Eosinophils 0, Absolute Basophils 0 01/16/18 1855: APTT 54 H, CBC w Diff NO MAN DIFF REQ, RBC 2.59 L, MCV 96.1 H, MCH 31.2 H, MCHC 32.5 L, RDW 18.3 H, MPV 9.4, Gran % 87.6 H, Lymphocytes % 9.7 L, Monocytes % 2.5, Eosinophils % 0.1, Basophils % 0.1, Absolute Granulocytes 6.9 H, Absolute Lymphocytes 0.8 L, Absolute Monocytes 0.2, Absolute Eosinophils 0, Absolute Basophils 0 01/16/18 1100: APTT 105 *H 01/16/18 0406: Anion Gap 12, Estimated GFR 13 L, Glucose 128 H, Calcium 8.7, Phosphorus 3.5, Magnesium 2.0, Total Bilirubin 0.3, AST 9 L, ALT 19 L, Albumin 2.8 L, PT 12.1 , INR 1.11, CBC w Diff NO MAN DIFF REQ, RBC 2.51 L, MCV 95.8 H, MCH 31.2 H, MCHC 32.5 L, RDW 18.5 H, MPV 9.3, Gran % 81.3 H, Lymphocytes % 15.5 L, Monocytes % 2.7, Eosinophils % 0.2, Basophils % 0.3, Absolute Granulocytes 6.3, Absolute Lymphocytes 1.2, Absolute Monocytes 0.2, Absolute Eosinophils 0, Absolute Basophils 0 01/15/18 2303: APTT 74 H 01/15/18 1100: APTT 67 H Telemetry personally reviewed sinus rhythm Assessment/Plan Assessment/Plan 1. Coronary disease by history status post coronary bypass surgery 2006 with complex PCI to the left main into the circumflex September 2017 with normal LV function 2. Hx of Hypertension, currently hypotensive with questionable adrenal insufficiency 3. Peripheral arterial disease status post prior amputation now S/P right AKA 4. End-stage renal disease on dialysis 5. 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 Repeat YULIA to 01/02/18 was negative for vegetations; however, with severe mitral regurgitation and possible perforation 6. Diabetes 7. Fever and chills with hypotension most likely secondary to sepsis. 8. Elevated troponins, minimal, not due to ACS 9. Intermittent atrial fibrillation possibly due to sepsis Recommendations 1. Continue to hold beta debbi due to hypotension 2. He will likely require surgical intervention for his moderate to severe mitral regurgitation perforated leaflet during this admission once he is stabilized 3. Continue anticoagulation for paroxysmal atrial fibrillation 4. Continue antibiotics for bacteremia 5. Continue hemodialysis Continue telemetry? Yes
[2018-01-17 08:00] VITALS: BP 102/60
--- NOTE | 2018-01-17 08:00 | PN- Endocrinology ---
Assessment/Plan Endoscopy Assessment: The patient feels okay. He was dialyzed yesterday. His blood pressure this morning is 118/70. He is not on pressors. His blood sugars are in a satisfactory range on NovoLog coverage before meals. Plan: Suggest we can begin to taper his hydrocortisone. Suggest taper Solu-Cortef to 50 mg IV every 12 hours. Continue NovoLog coverage before meals. Subjective Subjective: Feels okay Review of Systems Constitutional: Denies: chills, fever. Cardiovascular: Denies: chest pain. Gastrointestinal: Denies: abdominal pain, nausea. Objective Last 24 Hrs of Vital Signs/I&O Vital Signs Date Time Temp Pulse Resp B/P B/P Pulse O2 O2 Flow FiO2 Mean Ox Delivery Rate 01/17 0556 66 95 01/17 0400 94 CPAP 01/17 0300 67 96 01/17 0035 72 95 01/17 0000 96 CPAP 01/17 0000 97.8 72 22 118/70 96 CPAP 01/16 1541 97.4 76 15 100/60 96 Room Air 01/16 1200 Room Air 01/16 0800 Room Air 01/16 0800 97.4 68 18 /64 94 Room Air Intake & Output 01/17 0801/17 0000 01/16 1600 Intake Total 2818 658.8 523 Output Total 2500 Balance 2818 658.8 Intake, 2500 Dialysate Intake, IV 268 358.8 283 Intake, Oral 50 300 240 Output, 2500 Dialysate Patient 160 lb 192 lb Weight Weight Bed scale Measurement Method Vital Signs Date Time Temp Pulse Resp B/P B/P Pulse O2 O2 Flow FiO2 Mean Ox Delivery Rate 01/17 0556 66 95 01/17 0400 94 CPAP 01/17 0300 67 96 01/17 0035 72 95 03 0000 96 CPAP 01/17 0000 97.8 72 22 118/70 96 CPAP 01/16 1541 97.4 76 15 100/60 96 Room Air 01/16 1200 Room Air 01/16 0800 Room Air 01/16 0800 97.4 68 18 92/64 94 Room Air Intake & Output 01/17 0800 01/17 0000 01/16 1600 Intake Total 2818 658.8 523 Output Total 2500 Balance 2818 658.8 Intake, 2500 Dialysate Intake, IV 268 358.8 283 Intake, Oral 50 300 240 Output, 2500 Dialysate Patient 160 lb 192 lb Weight Weight Bed scale Measurement Method Physical Exam General Appearance: alert, awake, comfortable Head: normal appearance Respiratory: normal breath sounds Cardiovascular: regular rate/rhythm Current Medications: Current Medications Sig/Bobo Start time Last Medication Dose Route Stop Time Status Admin Albumin Human 12.5 GM .Q30MIN PRN 01/02 1000 AC 01/04 IV 1058 Aspirin Buffered 81 MG DAILY 01/03 1000 AC 01/16 PO 1222 Atorvastatin Calcium 10 MG 17001/05 1700 AC 01/16 PO 1725 Bisacodyl 5 MG DAILY 01/06 1345 AC 01/16 PO 1222 Cefazolin Sodium 2 GM 01/11 1000 AC 01/16 N/A 1 UNIT IV 1231 Cinacalcet 30 MG 01/02 1700 AC 01/16 PO 1725 Clopidogrel Bisulfate 75 MG 01/05 2000 AC 01/16 PO 2032 Cyanocobalamin 1,000 MCG DAILY 01/03 1000 AC 01/16 PO 1222 Docusate Sodium 100 MG DAILY 01/03 1000 AC 01/16 PO 1222 Epoetin Jaron 4,000 UNIT MoWeFr PRN 01/06 1000 AC IV Epoetin Jaron 3,000 UNIT MoWeFr PRN 01/06 1000 AC IV Heparin Sodium 25,000 UNIT Q12H 01/14 0730 AC 01/16 (Porcine) IV 2033 Sodium Chloride 500 ML Hydrocortisone 50 MG Q8 01/10 0600 AC 01/17 Sodium Succinate IV 0522 Hydromorphone HCl 1 MG 5PM PRN 01/16 1545 DC PO Hydromorphone HCl 1 MG ONCE ONE 01/16 0930 DC 01/16 PO 01/16 0931 1223 Insulin Aspart 0 TIDAC 01/13 0800 AC 01/16 SC 1634 Lidocaine/Prilocaine 1 GAVI DAILY PRN 01/02 1645 AC 01/16 TOP 0715 Morphine Sulfate 2 MG Q4P PRN 01/02 1430 DC 01/14 IV 1447 Multivitamins 1 TAB DAILY 01/03 1000 AC 01/16 PO 1222 Polyethylene Glycol 17 GM DAILY 01/05 1349 AC 01/11 PO 1005 Senna 187 MG AT BEDTIME 01/05 2200 AC 01/16 PO 2131 Sevelamer Carbonate 2,400 MG WM 01/02 1700 AC 01/16 PO 1634 Warfarin Sodium 5 MG COUMADIN 1700 ONE 01/16 1700 DC 01/16 PO 01/16 1701 1491 Results Pertinent Lab/Brendan Results: Laboratory Tests 01/17 01/17 0500 0230 Chemistry Sodium (137 - 145 mmol/L) 139 Potassium (3.5 - 5.1 mmol/L) 3.4 L Chloride (98 - 107 mmol/L) 101 Carbon Dioxide (22 - 30 mmol/L) 27 Anion Gap (5 - 16) 11 BUN (9 - 20 mg/dL) 32 H Creatinine (0.7 - 1.2 mg/dL) 3.8 H Estimated GFR (>60 ml/min) 17 L Glucose (65 - 99 mg/dL) 180 H Calcium (8.4 - 10.2 mg/dL) 8.5 Phosphorus (2.5 - 4.5 mg/dL) 3.1 Magnesium (1.6 - 2.3 mg/dL) 2.0 Total Bilirubin (0.2 - 1.3 mg/dL) 0.4 AST (17 - 59 U/L) 4 L ALT (21 - 72 U/L) 18 L Albumin (3.5 - 5.0 g/dL) 3.0 L Coagulation PT (9.4 - 12.5 SEC) Cancelled 22.0 H INR (0.90 - 1.17) Cancelled 2.00 H APTT (25 - 37 SEC) 70 H Hematology CBC w Diff NO MAN DIFF REQ WBC (4.8 - 10.8 /CUMM) 6.7 RBC (4.70 - 6.10 /CUMM) 2.57 L Hgb (14.0 - 18.0 G/DL) 8.0 L Hct (42 - 52 %) 24.6 L MCV (80.0 - 94.0 FL) 95.5 H MCH (27.0 - 31.0 PG) 31.0 MCHC (33.0 - 37.0 G/DL) 32.4 L RDW (11.5 - 14.5 %) 17.9 H Plt Count (130 - 400 /CUMM) 158 MPV (7.4 - 10.4 FL) 9.2 Gran % (42.2 - 75.2 %) 84.9 H Lymphocytes % (20.5 - 51.1 %) 11.7 L Monocytes % (1.7 - 9.3 %) 3.2 Eosinophils % (0 - 5 %) 0 Basophils % (0.0 - 2.0 %) 0.2 Absolute Granulocytes (1.4 - 6.5 /CUMM) 5.7 Absolute Lymphocytes (1.2 - 3.4 /CUMM) 0.8 L Absolute Monocytes (0.10 - 0.60 /CUMM) 0.2 Absolute Eosinophils (0.0 - 0.7 /CUMM) 0 Absolute Basophils (0.0 - 0.2 /CUMM) 0 01/16 01/16 1855 1100 Coagulation APTT (25 - 37 SEC) 54 H 105 *H Hematology CBC w Diff NO MAN DIFF REQ WBC (4.8 - 10.8 /CUMM) 7.9 RBC (4.70 - 6.10 /CUMM) 2.59 L Hgb (14.0 - 18.0 G/DL) 8.1 L Hct (42 - 52 %) 24.9 L MCV (80.0 - 94.0 FL) 96.1 H MCH (27.0 - 31.0 PG) 31.2 H MCHC (33.0 - 37.0 G/DL) 32.5 L RDW (11.5 - 14.5 %) 18.3 H Plt Count (130 - 400 /CUMM) 163 MPV (7.4 - 10.4 FL) 9.4 Gran % (42.2 - 75.2 %) 87.6 H Lymphocytes % (20.5 - 51.1 %) 9.7 L Monocytes % (1.7 - 9.3 %) 2.5 Eosinophils % (0 - 5 %) 0.1 Basophils % (0.0 - 2.0 %) 0.1 Absolute Granulocytes (1.4 - 6.5 /CUMM) 6.9 H Absolute Lymphocytes (1.2 - 3.4 /CUMM) 0.8 L Absolute Monocytes (0.10 - 0.60 /CUMM) 0.2 Absolute Eosinophils (0.0 - 0.7 /CUMM) 0 Absolute Basophils (0.0 - 0.2 /CUMM) 0
[2018-01-17 09:50] VITALS: BP 98/60
--- NOTE | 2018-01-17 15:49 | PN- Nephrology ---
Assessment/Plan Nephrology Assessment: ESRD - Remains off pressors. Respiratory status comfortable although remains overloaded. Plan for HD tomorrow. Anemia - Epogen has been increased to 7000U TIW - will need to monitor Hg - may need to increase further. MSSA bacteremia - Cultures neg. CT C/A/P unrevealing of source - ultimately thought to be stump. ID following - remains on abx - likely to just complete 4- 6 week course. Mitral regurg - Possible need for replacement during this admission. Suggestion: -HD tomorrow -Epogen 7000U TIW Please call [phone] with ?'s Subjective Subjective: HD performed yesteday Remains off pressors Says breathing is OK Objective Vital Signs and I&Os Vital Signs Date Time Temp Pulse Resp B/P B/P Pulse O2 O2 Flow FiO2 Mean Ox Delivery Rate 01/17 0950 98/60 01/17 0800 Room Air 01/17 0800 97.4 72 18 102/60 92 Room Air 01/17 0556 66 95 01/17 0400 94 CPAP 01/17 0300 67 96 01/17 0035 72 95 01/17 0000 96 CPAP 01/17 0000 97.8 72 22 118/70 96 CPAP Intake & Output 01/17 1600 01/17 0400 01/16 1600 01/16 0400 01/15 1600 01/15 0400 Intake Total 3326 658.8 823 580.4 863.4 729.2 Output Total 2500 0 0 Balance 3326 658.8 -1677 580.4 863.4 729.2 Intake, 2500 Dialysate Intake, IV 536 358.8 283 260.4 563.4 329.2 Intake, Oral 290 300 290 320 300 400 Intake, 250 TPN/PPN Number 1 Bowel Movements Output, 2500 Dialysate Output, Urine 0 0 Patient 193 lb 192 lb 196 lb Weight Weight Bed scale Bed scale Bed scale Measurement Method Physical Exam: Gen - OK appearing HEENT - supple CV - RRR, no m/r/g Chest - decreased BS at bases Abd - soft, NTND Ext - +edema, s/p RLE amputation; LLA AVF +thrill/+bruit Neuro - AOX3, grossly nonfocal Current Medications: Current Medications Sig/Bobo Start time Last Medication Dose Route Stop Time Status Admin Albumin Human 12.5 GM .Q30MIN PRN 01/02 1000 AC 01/04 IV 1058 Aspirin Buffered 81 MG DAILY 01/03 1000 AC 01/17 PO 0957 Atorvastatin Calcium 10 MG 17001/05 1700 AC 01/16 PO 1725 Bisacodyl 5 MG DAILY 01/06 1345 AC 01/17 PO 0957 Cefazolin Sodium 2 GM 01/11 1000 AC 01/16 N/A 1 UNIT IV 1231 Cinacalcet 30 MG 01/02 1700 AC 01/16 PO 1725 Clopidogrel Bisulfate 75 MG 01/05 2000 AC 01/16 PO 203 Cyanocobalamin 1,000 MCG DAILY 01/03 1000 AC 01/17 PO 0957 Docusate Sodium 100 MG DAILY 01/03 1000 AC 01/17 PO 0957 Epoetin Jaron 4,000 UNIT MoWeFr PRN 01/06 1000 AC IV Epoetin Jaron 3,000 UNIT MoWeFr PRN 01/06 1000 AC IV Heparin Sodium 25,000 UNIT Q12H 01/14 0730 AC 01/17 (Porcine) IV 1334 Sodium Chloride 500 ML Hydrocortisone 50 MG Q12 01/17 2200 AC Sodium Succinate IV Hydrocortisone 50 MG Q8 01/10 0600 DC 01/17 Sodium Succinate IV 0522 Hydromorphone HCl 2 MG ONCE ONE 01/17 0845 DC 01/17 PO 01/17 0846 0957 Hydromorphone HCl 1 MG 5PM PRN 01/16 1545 DC PO Insulin Aspart 0 TIDAC 01/13 0800 AC 01/17 SC 1149 Lidocaine/Prilocaine 1 GAVI DAILY PRN 01/02 1645 AC 01/16 TOP 0715 Multivitamins 1 TAB DAILY 01/03 1000 AC 01/17 PO 0957 Polyethylene Glycol 17 GM DAILY 01/05 1349 AC 01/11 PO 1005 Senna 187 MG AT BEDTIME 01/05 2200 AC 01/16 PO 2131 Sevelamer Carbonate 2,400 MG WM 01/02 1700 AC 01/17 PO 1149 Warfarin Sodium 3 MG COUMADIN 1700 01/17 1700 AC PO 01/17 2359 Warfarin Sodium 5 MG COUMADIN 1700 ONE 01/16 1700 DC 01/16 PO 01/16 1701 1821 Results Pertinent Lab Results: Laboratory Tests 01/17 01/17 01/17 1500 0500 0230 Chemistry Sodium (137 - 145 mmol/L) 139 Potassium (3.5 - 5.1 mmol/L) 3.4 L Chloride (98 - 107 mmol/L) 101 Carbon Dioxide (22 - 30 mmol/L) 27 Anion Gap (5 - 16) 11 BUN (9 - 20 mg/dL) 32 H Creatinine (0.7 - 1.2 mg/dL) 3.8 H Estimated GFR (>60 ml/min) 17 L Glucose (65 - 99 mg/dL) 180 H Calcium (8.4 - 10.2 mg/dL) 8.5 Phosphorus (2.5 - 4.5 mg/dL) 3.1 Magnesium (1.6 - 2.3 mg/dL) 2.0 Total Bilirubin (0.2 - 1.3 mg/dL) 0.4 AST (17 - 59 U/L) 4 L ALT (21 - 72 U/L) 18 L Albumin (3.5 - 5.0 g/dL) 3.0 L Coagulation PT (9.4 - 12.5 SEC) Cancelled 22.0 H INR (0.90 - 1.17) Cancelled 2.00 H APTT (25 - 37 SEC) Pending 70 H Hematology CBC w Diff NO MAN DIFF REQ WBC (4.8 - 10.8 /CUMM) 6.7 RBC (4.70 - 6.10 /CUMM) 2.57 L Hgb (14.0 - 18.0 G/DL) 8.0 L Hct (42 - 52 %) 24.6 L MCV (80.0 - 94.0 FL) 95.5 H MCH (27.0 - 31.0 PG) 31.0 MCHC (33.0 - 37.0 G/DL) 32.4 L RDW (11.5 - 14.5 %) 17.9 H Plt Count (130 - 400 /CUMM) 158 MPV (7.4 - 10.4 FL) 9.2 Gran % (42.2 - 75.2 %) 84.9 H Lymphocytes % (20.5 - 51.1 %) 11.7 L Monocytes % (1.7 - 9.3 %) 3.2 Eosinophils % (0 - 5 %) 0 Basophils % (0.0 - 2.0 %) 0.2 Absolute Granulocytes (1.4 - 6.5 /CUMM) 5.7 Absolute Lymphocytes (1.2 - 3.4 /CUMM) 0.8 L Absolute Monocytes (0.10 - 0.60 /CUMM) 0.2 Absolute Eosinophils (0.0 - 0.7 /CUMM) 0 Absolute Basophils (0.0 - 0.2 /CUMM) 0 01/16 01/16 1855 1100 Coagulation APTT (25 - 37 SEC) 54 H 105 *H Hematology CBC w Diff NO MAN DIFF REQ WBC (4.8 - 10.8 /CUMM) 7.9 RBC (4.70 - 6.10 /CUMM) 2.59 L Hgb (14.0 - 18.0 G/DL) 8.1 L Hct (42 - 52 %) 24.9 L MCV (80.0 - 94.0 FL) 96.1 H MCH (27.0 - 31.0 PG) 31.2 H MCHC (33.0 - 37.0 G/DL) 32.5 L RDW (11.5 - 14.5 %) 18.3 H Plt Count (130 - 400 /CUMM) 163 MPV (7.4 - 10.4 FL) 9.4 Gran % (42.2 - 75.2 %) 87.6 H Lymphocytes % (20.5 - 51.1 %) 9.7 L Monocytes % (1.7 - 9.3 %) 2.5 Eosinophils % (0 - 5 %) 0.1 Basophils % (0.0 - 2.0 %) 0.1 Absolute Granulocytes (1.4 - 6.5 /CUMM) 6.9 H Absolute Lymphocytes (1.2 - 3.4 /CUMM) 0.8 L Absolute Monocytes (0.10 - 0.60 /CUMM) 0.2 Absolute Eosinophils (0.0 - 0.7 /CUMM) 0 Absolute Basophils (0.0 - 0.2 /CUMM) 0 01/16 01/15 01/15 0406 2303 1100 Chemistry Sodium (137 - 145 mmol/L) 138 Potassium (3.5 - 5.1 mmol/L) 3.8 Chloride (98 - 107 mmol/L) 100 Carbon Dioxide (22 - 30 mmol/L) 26 Anion Gap (5 - 16) 12 BUN (9 - 20 mg/dL) 43 H Creatinine (0.7 - 1.2 mg/dL) 4.7 H Estimated GFR (>60 ml/min) 13 L Glucose (65 - 99 mg/dL) 128 H Calcium (8.4 - 10.2 mg/dL) 8.7 Phosphorus (2.5 - 4.5 mg/dL) 3.5 Magnesium (1.6 - 2.3 mg/dL) 2.0 Total Bilirubin (0.2 - 1.3 mg/dL) 0.3 AST (17 - 59 U/L) 9 L ALT (21 - 72 U/L) 19 L Albumin (3.5 - 5.0 g/dL) 2.8 L Coagulation PT (9.4 - 12.5 SEC) 12.1 INR (0.90 - 1.17) 1.11 APTT (25 - 37 SEC) 74 H 67 H Hematology CBC w Diff NO MAN DIFF REQ WBC (4.8 - 10.8 /CUMM) 7.8 RBC (4.70 - 6.10 /CUMM) 2.51 L Hgb (14.0 - 18.0 G/DL) 7.8 L Hct (42 - 52 %) 24.0 L MCV (80.0 - 94.0 FL) 95.8 H MCH (27.0 - 31.0 PG) 31.2 H MCHC (33.0 - 37.0 G/DL) 32.5 L RDW (11.5 - 14.5 %) 18.5 H Plt Count (130 - 400 /CUMM) 163 MPV (7.4 - 10.4 FL) 9.3 Gran % (42.2 - 75.2 %) 81.3 H Lymphocytes % (20.5 - 51.1 %) 15.5 L Monocytes % (1.7 - 9.3 %) 2.7 Eosinophils % (0 - 5 %) 0.2 Basophils % (0.0 - 2.0 %) 0.3 Absolute Granulocytes (1.4 - 6.5 /CUMM) 6.3 Absolute Lymphocytes (1.2 - 3.4 /CUMM) 1.2 Absolute Monocytes (0.10 - 0.60 /CUMM) 0.2 Absolute Eosinophils (0.0 - 0.7 /CUMM) 0 Absolute Basophils (0.0 - 0.2 /CUMM) 0 /11 0510 Chemistry Sodium (137 - 145 mmol/L) 134 L Potassium (3.5 - 5.1 mmol/L) 3.5 Chloride (98 - 107 mmol/L) 97 L Carbon Dioxide (22 - 30 mmol/L) 28 Anion Gap (5 - 16) 8 BUN (9 - 20 mg/dL) 29 H Creatinine (0.7 - 1.2 mg/dL) 3.5 H Estimated GFR (>60 ml/min) 18 L Glucose (65 - 99 mg/dL) 136 H Calcium (8.4 - 10.2 mg/dL) 8.6 Phosphorus (2.5 - 4.5 mg/dL) 2.8 Magnesium (1.6 - 2.3 mg/dL) 2.0 Total Bilirubin (0.2 - 1.3 mg/dL) 0.3 AST (17 - 59 U/L) 10 L ALT (21 - 72 U/L) 23 Albumin (3.5 - 5.0 g/dL) 2.9 L Coagulation APTT (25 - 37 SEC) > 120 *H Hematology CBC w Diff NO MAN DIFF REQ WBC (4.8 - 10.8 /CUMM) 5.2 RBC (4.70 - 6.10 /CUMM) 3.30 L Hgb (14.0 - 18.0 G/DL) 10.2 L Hct (42 - 52 %) 31.3 L MCV (80.0 - 94.0 FL) 95.1 H MCH (27.0 - 31.0 PG) 31.0 MCHC (33.0 - 37.0 G/DL) 32.5 L RDW (11.5 - 14.5 %) 17.8 H Plt Count (130 - 400 /CUMM) 129 L MPV (7.4 - 10.4 FL) 9.2 Gran % (42.2 - 75.2 %) 82.4 H Lymphocytes % (20.5 - 51.1 %) 13.7 L Monocytes % (1.7 - 9.3 %) 3.6 Eosinophils % (0 - 5 %) 0.2 Basophils % (0.0 - 2.0 %) 0.1 Absolute Granulocytes (1.4 - 6.5 /CUMM) 4.3 Absolute Lymphocytes (1.2 - 3.4 /CUMM) 0.7 L Absolute Monocytes (0.10 - 0.60 /CUMM) 0.2 Absolute Eosinophils (0.0 - 0.7 /CUMM) 0 Absolute Basophils (0.0 - 0.2 /CUMM) 0 Imaging/Other Studies: None new
[2018-01-17 15:56] LABS: PTT 86 SEC (25-37)
[2018-01-17 16:00] VITALS: BP 90/52
[2018-01-17 22:06] VITALS: BP 92/50
[2018-01-18 03:59] LABS: ABSOLUTE BASOPHIL COUNT 0.1 /CUMM (0.0-0.2); ABSOLUTE EOSINOPHIL COUNT 0 /CUMM (0.0-0.7); ABSOLUTE GRANULOCYTE CT 4.9 /CUMM (1.4-6.5); ABSOLUTE LYMPH COUNT 1.3 /CUMM (1.2-3.4); ABSOLUTE MONOCYTE COUNT 0.3 /CUMM (0.10-0.60); BASOPHIL % 1.7 % (0.0-2.0); EOSINOPHIL % 0.4 % (0-5); GRANULOCYTE % 74.8 % (42.2-75.2); HEMATOCRIT 24.7 % (42-52); MEAN CORPUSCULAR HGB 30.6 PG (27.0-31.0); MEAN CORPUSCULAR HGB CONC 31.9 G/DL (33.0-37.0); MEAN CORPUSCULAR VOLUME 96.1 FL (80.0-94.0); MEAN PLATELET VOLUME 9.3 FL (7.4-10.4); PLATELET COUNT 154 /CUMM (130-400); RBC DISTRIBUTION WIDTH 19.3 % (11.5-14.5); RED BLOOD CELL CT 2.57 /CUMM (4.70-6.10); WHITE BLOOD CELL COUNT 6.6 /CUMM (4.8-10.8)
[2018-01-18 04:08] LABS: PTT 84 SEC (25-37)
[2018-01-18 04:15] LABS: PT 43.8 SEC (9.4-12.5)
[2018-01-18 06:59] VITALS: BP 98/62
--- NOTE | 2018-01-18 07:26 | PN- Endocrinology ---
Assessment/Plan Endoscopy Assessment: The patient is out of intensive care and on a regular hospital floor. He feels okay. He is presently on hydrocortisone 50 mg IV every 12 hours. His blood pressure remains in the 98/60 range. He is on NovoLog coverage before meals only for sugar above 150. However as we decrease the steroids his blood sugars are improving. Plan: Suggest continue hydrocortisone 50 mg IV every 12 hours today. If the patient continues to maintain his blood pressure well we can switch him to hydrocortisone by mouth tomorrow. Suggest begin tomorrow hydrocortisone 25 mg twice a day by mouth and stop the intravenous hydrocortisone. Subjective Subjective: Feels okay Objective Last 24 Hrs of Vital Signs/I&O Vital Signs Date Time Temp Pulse Resp B/P B/P Pulse O2 O2 Flow FiO2 Mean Ox Delivery Rate 01/18 0659 98.0 68 20 98/62 98 CPAP 01/18 0021 72 97 01/17 2215 69 94 01/17 2206 98.2 69 20 92/50 92 Room Air 01/17 1600 98.0 68 16 90/52 96 Room Air 01/17 0950 98/60 01/17 0800 Room Air 01/17 0800 97.4 72 18 102/60 92 Room Air Intake & Output 01/18 0800 01/18 0000 01/17 1600 Intake Total 60 508 Output Total Balance 60 508 Intake, IV 60 268 Intake, Oral 240 Patient 204 lb 193 lb Weight Weight Bed scale Bed scale Measurement Method Vital Signs Date Time Temp Pulse Resp B/P B/P Pulse O2 O2 Flow FiO2 Mean Ox Delivery Rate 01/18 0659 98.0 68 20 98/62 98 CPAP 01/18 0021 72 97 01/17 2215 69 94 01/17 2206 98.2 69 20 92/50 92 Room Air 01/17 1600 98.0 68 16 90/52 96 Room Air 01/17 0950 98/60 01/17 0800 Room Air 01/17 0800 97.4 72 18 102/60 92 Room Air Intake & Output 01/18 0800 01/18 0000 01/17 1600 Intake Total 60 508 Output Total Balance 60 508 Intake, IV 60 268 Intake, Oral 240 Patient 204 lb 193 lb Weight Weight Bed scale Bed scale Measurement Method Physical Exam General Appearance: alert, awake, comfortable Neck: normal inspection Respiratory: normal breath sounds Cardiovascular: regular rate/rhythm Abdomen: normal bowel sounds Extremities: normal inspection Current Medications: Current Medications Sig/Bobo Start time Last Medication Dose Route Stop Time Status Admin Albumin Human 12.5 GM .Q30MIN PRN 01/02 1000 AC 01/04 IV 1058 Aspirin Buffered 81 MG DAILY 01/03 1000 AC 01/17 PO 0957 Atorvastatin Calcium 10 MG 1700 01/05 1700 AC 01/17 PO 1704 Bisacodyl 5 MG DAILY 01/06 1345 AC 01/17 PO 0957 Cefazolin Sodium 2 GM 01/11 1000 AC 01/16 N/A 1 UNIT IV 1231 Cinacalcet 30 MG 01/02 1700 AC 01/17 PO 1705 Clopidogrel Bisulfate 75 MG 01/05 AC 01/17 PO 215 Cyanocobalamin 1,000 MCG DAILY 01/03 1000 AC 01/17 PO 0957 Docusate Sodium 100 MG DAILY 01/03 1000 AC 01/17 PO 0957 Epoetin Jaron 4,000 UNIT MoWeFr PRN 01/06 1000 AC IV Epoetin Jaron 3,000 UNIT MoWeFr PRN 01/06 1000 AC IV Heparin Sodium 25,000 UNIT Q12H 01/14 0730 AC 01/18 (Porcine) IV 0556 Sodium Chloride 500 ML Hydrocortisone 50 MG Q12 01/17 2200 AC 01/17 Sodium Succinate IV 2156 Hydrocortisone 50 MG Q8 01/10 0600 DC 01/17 Sodium Succinate IV 0522 Hydromorphone HCl 1 MG Q12 PRN 01/17 1715 AC PO Hydromorphone HCl 2 MG ONCE ONE 01/17 0845 DC 01/17 PO 01/17 0846 0957 Insulin Aspart 0 TIDAC 01/13 0800 AC 01/17 SC 1149 Lidocaine/Prilocaine 1 GAVI DAILY PRN 01/02 1645 AC 01/16 TOP 0715 Multivitamins 1 TAB DAILY 01/03 1000 AC 01/17 PO 0957 Polyethylene Glycol 17 GM DAILY 01/05 1349 AC 01/11 PO 1005 Senna 187 MG AT BEDTIME 01/05 2200 AC 01/17 PO 2156 Sevelamer Carbonate 2,400 MG WM 01/02 1700 AC 01/17 PO 1705 Warfarin Sodium 3 MG COUMADIN 1700 01/17 1700 DC 01/17 PO 01/17 2359 1704 Results Pertinent Lab/Brendan Results: Laboratory Tests 01/18 01/18 01/17 0330 0330 1500 Chemistry Sodium (137 - 145 mmol/L) 137 Potassium (3.5 - 5.1 mmol/L) 3.7 Chloride (98 - 107 mmol/L) 101 Carbon Dioxide (22 - 30 mmol/L) 24 Anion Gap (5 - 16) 12 BUN (9 - 20 mg/dL) 47 H Creatinine (0.7 - 1.2 mg/dL) 5.0 H Estimated GFR (>60 ml/min) 12 L Glucose (65 - 99 mg/dL) 123 H Calcium (8.4 - 10.2 mg/dL) 8.3 L Phosphorus (2.5 - 4.5 mg/dL) 3.2 Magnesium (1.6 - 2.3 mg/dL) 2.0 Total Bilirubin (0.2 - 1.3 mg/dL) 0.4 AST (17 - 59 U/L) 5 L ALT (21 - 72 U/L) 16 L Albumin (3.5 - 5.0 g/dL) 2.8 L Coagulation PT (9.4 - 12.5 SEC) 43.8 *H INR (0.90 - 1.17) 3.96 H APTT (25 - 37 SEC) 84 H 86 H Hematology CBC w Diff NO MAN DIFF REQ WBC (4.8 - 10.8 /CUMM) 6.6 RBC (4.70 - 6.10 /CUMM) 2.57 L Hgb (14.0 - 18.0 G/DL) 7.9 L Hct (42 - 52 %) 24.7 L MCV (80.0 - 94.0 FL) 96.1 H MCH (27.0 - 31.0 PG) 30.6 MCHC (33.0 - 37.0 G/DL) 31.9 L RDW (11.5 - 14.5 %) 19.3 H Plt Count (130 - 400 /CUMM) 154 MPV (7.4 - 10.4 FL) 9.3 Gran % (42.2 - 75.2 %) 74.8 Lymphocytes % (20.5 - 51.1 %) 19.2 L Monocytes % (1.7 - 9.3 %) 3.9 Eosinophils % (0 - 5 %) 0.4 Basophils % (0.0 - 2.0 %) 1.7 Absolute Granulocytes (1.4 - 6.5 /CUMM) 4.9 Absolute Lymphocytes (1.2 - 3.4 /CUMM) 1.3 Absolute Monocytes (0.10 - 0.60 /CUMM) 0.3 Absolute Eosinophils (0.0 - 0.7 /CUMM) 0 Absolute Basophils (0.0 - 0.2 /CUMM) 0.1
--- NOTE | 2018-01-18 07:35 | PN- Housestaff ---
Ginny MARTINEZ,Shruthi 01/18/18 0735: Subjective Follow-up For: MSSA bacteremia with relapsed endocarditis Mitral valve regurgitation probably from mitral perf ESRD on dialysis Subjective: Seen and examined He is very depressed, not really interested in making conversation. Reports he is feeling ok. Denies any pain. Review of Systems Constitutional: Reports: see HPI. Objective Last 24 Hrs of Vital Signs/I&O Vital Signs Date Time Temp Pulse Resp B/P B/P Pulse O2 O2 Flow FiO2 Mean Ox Delivery Rate 01/18 0659 98.0 68 20 98/62 98 CPAP 01/18 0021 72 97 01/17 2215 69 94 01/17 2206 98.2 69 20 92/50 92 Room Air 01/17 1600 98.0 68 16 90/52 96 Room Air 01/17 0950 98/60 01/17 0800 Room Air 01/17 0800 97.4 72 18 102/60 92 Room Air Intake & Output 01/18 0800 01/18 0000 01/17 1600 Intake Total 60 508 Output Total Balance 60 508 Intake, IV 60 268 Intake, Oral 240 Patient 92.533 kg 87.685 kg Weight Weight Bed scale Bed scale Measurement Method Physical Exam General Appearance: Alert, Oriented X3, Mild Distress Skin: No Rashes, No Breakdown HEENT: Atraumatic, PERRLA, EOMI Neck: prominent JVD present Cardiovascular: Normal S1, Normal S2, pansystolic murmur loud in aortic and mitral areas Lungs: Normal Air Movement, poor air entry at bases Abdomen: Normal Bowel Sounds, Soft, No Tenderness Extremities: left AKA Right 4+ pitting edema present Current Medications: Current Medications Sig/Bobo Start time Last Medication Dose Route Stop Time Status Admin Albumin Human 12.5 GM .Q30MIN PRN 01/02 1000 AC 01/04 IV 1058 Aspirin Buffered 81 MG DAILY 01/03 1000 AC 01/17 PO 0957 Atorvastatin Calcium 10 MG 01/05 1700 AC 01/17 PO 1704 Bisacodyl 5 MG DAILY 01/06 1345 AC 01/17 PO 0957 Cefazolin Sodium 2 GM 01/11 1000 DC 01/16 N/A 1 UNIT IV 1231 Cinacalcet 30 MG 01/02 1700 AC 01/17 PO 170 Clopidogrel Bisulfate 75 MG 01/05 AC 01/17 PO 2156 Cyanocobalamin 1,000 MCG DAILY 01/03 1000 AC 01/17 PO 0957 Docusate Sodium 100 MG DAILY 01/03 1000 AC 01/17 PO 0957 Epoetin Jaron 4,000 UNIT MoWeFr PRN 01/06 1000 AC IV Epoetin Jaron 3,000 UNIT MoWeFr PRN 01/06 1000 AC IV Heparin Sodium 25,000 UNIT Q12H 01/14 0730 AC 01/18 (Porcine) IV 0556 Sodium Chloride 500 ML Hydrocortisone 50 MG Q12 01/17 2200 AC 01/17 Sodium Succinate IV 2156 Hydrocortisone 50 MG Q8 01/10 0600 DC 01/17 Sodium Succinate IV 0522 Hydromorphone HCl 1 MG Q12 PRN 01/17 1715 AC PO Insulin Aspart 0 TIDAC 01/13 0800 AC 01/17 SC 1149 Lidocaine/Prilocaine 1 GAVI DAILY PRN 01/02 1645 AC 01/16 TOP 0715 Multivitamins 1 TAB DAILY 01/03 1000 AC 01/17 PO 0957 Polyethylene Glycol 17 GM DAILY 01/05 1349 AC 01/11 PO 1005 Senna 187 MG AT BEDTIME 01/05 2200 AC 01/17 PO 2156 Sevelamer Carbonate 2,400 MG WM 01/02 1700 AC 01/17 PO 1705 Warfarin Sodium 3 MG COUMADIN 1700 01/17 1700 DC 01/17 PO 01/17 2359 1704 Last 24 Hrs of Lab/Brendan Results Last 24 Hrs of Labs/Mics: Laboratory Tests 01/18/18 1030: PT Pending, INR Pending, APTT Pending 01/18/18 0830: 01/18/18 0330: PT 43.8 *H, INR 3.96 H 01/18/18 0330: Anion Gap 12, Estimated GFR 12 L, Glucose 123 H, Calcium 8.3 L, Phosphorus 3.2, Magnesium 2.0, Total Bilirubin 0.4, AST 5 L, ALT 16 L, Albumin 2.8 L, APTT 84 H, CBC w Diff NO MAN DIFF REQ, RBC 2.57 L, MCV 96.1 H, MCH 30.6, MCHC 31.9 L, RDW 19.3 H, MPV 9.3, Gran % 74.8, Lymphocytes % 19.2 L, Monocytes % 3.9, Eosinophils % 0.4, Basophils % 1.7, Absolute Granulocytes 4.9, Absolute Lymphocytes 1.3, Absolute Monocytes 0.3, Absolute Eosinophils 0, Absolute Basophils 0.1 01/17/18 1500: APTT 86 H Assessment/Plan Assessment: Patient is a 57-year-old male with past medical history significant for PAD s/p right BKA, ESRD on hemodialysis, CAD s/p PCI and 1 drug-eluting stent in the left main circumflex artery (September 2017) and s/p quadruple CABG (2006), diabetes, AMANDA on CPAP at night, chronic anemia, most recent admission 2.5months ago with septic arthritis and MSSA, mitral valve endocarditis, osteomyelitis, history of C. difficile - admitted on december 26 with lethargy & chills. He was admitted to ICU due to Septic shock of unclear source. Admitted to ICU from 12/26/17 to 01/17/18. Transferred to [facility] overnight Septic shock secondary to MSSA f/b prolonged hypotension (adrenal insufficiency) Blood cultures grew Staph aureus, initially started on IV vanco f/b conversion to cefazolin IV 2 g with dialysis as MSSA. He underwent Left IJ placement and started on pressors given poor candidate for resuscitation with ESRD. He remained on pressors for a long time. Intially started on levophed f/b undergoing stump repair from right BKA to AKA for concern of stump infection although pathology did not show any significant inflammation. Also started on Albumin 12.5gm PRN. Eventually found to have low cortisol versus autonomic insufficiency. Once found to have adrenal insufficiency, started on dopamine drip (on 01/11/18) for its favourable effect on MR. He is off pressors by 01/12/18 and maintained blood pressure off pressors. started on hydrocortisone 100 mg IV q8 on 01/08/18 and slowly tapered down to 50mg Q12 now. His recent CTA of the head on 01/13/18 revealed a significant periapical lucency associated with the right mandibular canine, with adjacent mandibular buccal cortical erosion, which is of unclear significance, as he appears to be asymptomatic, but, given the impending valve replacement, this should be addressed prior to the surgery. Diskitis is ruled out by CT. He needs 6 weeks of IV cefazolin 2gm with dialysis. Now day 23. Intermittent Atrial Fibrillation Initially started on IV heparin drip for elevated troponins initially. He subsequent went in and out of A.fib presumably secondary to infection. Elevated troponin was secondary to type II however, continued heparin drip for A.fib, given mitral insufficiency, bridged with warfarin. His INR today is 4. Will hold off on warfarin and heparin for now. Severe Mitral regurgitation with possible perforation He underwent the YULIA 01/02/18 which was negative for vegetations but did show severe mitral regurgitation giving the possibility of perforation. He likely merits Mitral valve replacement in near future. Given recent stenting in september, we will continue DAPT along with anticoagulation. He does benefit outpatient CT surgery consultation for optimal timing. Per cardio no need for cath now. Definetely agree with close cardiac follow up. CAD s/p CABG (2006) with complex PCI on LAD into LCx Consider uninteruppted DAPT (ASA and Plavix). ESRD on dialysis (MWF) He has been getting dialysis, closely followed by nephrology. Today he underwent dialysis. IV albumin 12.5gm 25% albumin as needed for low SBP<100. Continue Multivitamin, sevelamir, multivitamin. PAD s/p BKA now s/p AKA Dressing in place. No acute infection in pathology. continue DAPT. Diabetes Continue ISS DVT prophylaxis Supratherapeutic INR Code status Full code Problem List: 1. Sepsis 2. Renal failure 3. A-fib 4. Infective endocarditis 5. Mitral regurgitation Pain Ratin Pain Location: n/a Pain Goal: Pain 4 or less Pain Plan: IV dilaudid Tomorrow's Labs & Rationales: PT, LFT [facility] 01/18/18 1637: Attending MD Review Statement Attending Statement Attending MD Statement: examined this patient, discuss w/resident/PA/ADULT PAROLE OFFICER, agreed w/resident/PA/ADULT PAROLE OFFICER, reviewed EMR data (avail), discussed with nursing, discussed with case mgmt, amended to note Attending Assessment/Plan: Patient seen and examined. Transferred out of the ICU overnight. HR reviewed. Case discussed with the ID and cardiology service. Patient is currently resting comfortably not in any acute distress. Examination he is not in any respiratory distress. Heart sounds are regular with 3/6 systolic normal. Lungs are clear to auscultation bilaterally. Abdomen soft and nontender. He has 1+ edema in the left lower extremity. Per the cardiology service due to his relatively recent cardiac stent placement patient will need to be on uninterrupted dual antiplatelet therapy. In view of this surgical intervention for his valvular heart disease will be delayed. This has been discussed with the patient. Coumadin is currently on hold due to supratherapeutic INR. It will be resumed once INR trends below 3.5. If patient remains hemodynamically stable overnight with no new events he may be discharged home to follow-up closely with his cardiology service as an outpatient.
--- NOTE | 2018-01-18 09:40 | PN- Nephrology ---
Assessment/Plan Nephrology Assessment: ESRD - Remains off pressors. Still with fluid on exam. Plan for HD today with 2-3L UF as tolerated. Anemia - Epogen has been increased to 7000U TIW - plan to increase on Tuesday to 9000U TIW if no improvement. MSSA bacteremia - Cultures neg. CT C/A/P unrevealing of source - ultimately thought to be stump. ID following - remains on abx - likely to just complete 4- 6 week course. Mitral regurg - Possible need for replacement during this admission. Suggestion: -HD today -Increase Epogen to 9000U TIW if Hg remains <9.0 on Tuesday -f/u Cards recs re: timing of valve replacement Please call [phone] with ?'s Subjective Subjective: Pt seen and examined on dialysis Out of ICU Breathing OK Objective Vital Signs and I&Os Vital Signs Date Time Temp Pulse Resp B/P B/P Pulse O2 O2 Flow FiO2 Mean Ox Delivery Rate 01/18 0659 98.0 68 20 98/62 98 CPAP 01/18 0021 72 97 01/17 2215 69 94 01/17 2206 98.2 69 20 92/50 92 Room Air 01/17 1600 98.0 68 16 90/52 96 Room Air 01/17 0950 98/60 Intake & Output 01/18 1600 01/18 0400 01/17 1600 01/17 0400 01/16 1600 01/16 0400 Intake Total 526 81 2038 658.8 823 580.4 Output Total 2500 Balance 542 38 9070 658.8 -1677 580.4 Intake, 2500 Dialysate Intake, IV 270 60 536 358.8 283 260.4 Intake, Oral 120 290 300 290 320 Intake, 250 TPN/PPN Number 1 Bowel Movements Output, 2500 Dialysate Patient 204 lb 193 lb 192 lb Weight Weight Bed scale Bed scale Bed scale Measurement Method Physical Exam: Gen - OK appearing HEENT - supple CV - RRR, no m/r/g Chest - decreased BS bases with scant crackles, no wheezes or rhonchi Abd - soft, NTND Ext - s/p amputation, LLE 1+ edema, LLA AVF +bruit/+thrill Neuro - AOX3, grossly nonfocal Current Medications: Current Medications Sig/Bobo Start time Last Medication Dose Route Stop Time Status Admin Albumin Human 12.5 GM .Q30MIN PRN 02/26 1000 AC 01/04 IV 1058 Aspirin Buffered 81 MG DAILY 01/03 1000 AC 01/17 PO 0957 Atorvastatin Calcium 10 MG 17001/05 1700 AC 01/17 PO 1704 Bisacodyl 5 MG DAILY 01/06 1345 AC 01/17 PO 0957 Cefazolin Sodium 2 GM 01/11 1000 AC 01/16 N/A 1 UNIT IV 1231 Cinacalcet 30 MG 01/02 1700 AC 01/17 PO 170 Clopidogrel Bisulfate 75 MG 01/05 2000 AC 01/17 PO 2156 Cyanocobalamin 1,000 MCG DAILY 01/03 1000 AC 01/17 PO 0957 Docusate Sodium 100 MG DAILY 01/03 1000 AC 01/17 PO 0957 Epoetin Jaron 4,000 UNIT MoWeFr PRN 01/06 1000 AC IV Epoetin Jaron 3,000 UNIT MoWeFr PRN 01/06 1000 AC IV Heparin Sodium 25,000 UNIT Q12H 01/14 0730 AC 01/18 (Porcine) IV 0556 Sodium Chloride 500 ML Hydrocortisone 50 MG Q12 01/17 2200 AC 01/17 Sodium Succinate IV 2156 Hydrocortisone 50 MG Q8 01/10 0600 DC 01/17 Sodium Succinate IV 0522 Hydromorphone HCl 1 MG Q12 PRN 01/17 1715 AC PO Insulin Aspart 0 TIDAC 01/13 0800 AC 01/17 SC 1149 Lidocaine/Prilocaine 1 GAVI DAILY PRN 01/02 1645 AC 01/16 TOP 0715 Multivitamins 1 TAB DAILY 01/03 1000 AC 01/17 PO 0957 Polyethylene Glycol 17 GM DAILY 01/05 1349 AC 01/11 PO 1005 Senna 187 MG AT BEDTIME 01/05 2200 AC 01/17 PO 2156 Sevelamer Carbonate 2,400 MG WM 01/02 1700 AC 01/17 PO 1705 Warfarin Sodium 3 MG COUMADIN 17001/17 1700 DC 01/17 PO 01/17 2359 1704 Results Pertinent Lab Results: Laboratory Tests 01/18 01/18 01/18 01/17 0830 0330 0330 1500 Chemistry Sodium (137 - 145 mmol/L) 137 Potassium (3.5 - 5.1 mmol/L) 3.7 Chloride (98 - 107 mmol/L) 101 Carbon Dioxide (22 - 30 mmol/L) 24 Anion Gap (5 - 16) 12 BUN (9 - 20 mg/dL) 49 H 47 H Creatinine (0.7 - 1.2 mg/dL) 5.0 H Estimated GFR (>60 ml/min) 12 L Glucose (65 - 99 mg/dL) 123 H Calcium (8.4 - 10.2 mg/dL) 8.3 L Phosphorus (2.5 - 4.5 mg/dL) 3.2 Magnesium (1.6 - 2.3 mg/dL) 2.0 Total Bilirubin (0.2 - 1.3 mg/dL) 0.4 AST (17 - 59 U/L) 5 L ALT (21 - 72 U/L) 16 L Albumin (3.5 - 5.0 g/dL) 2.8 L Coagulation PT (9.4 - 12.5 SEC) 43.8 *H INR (0.90 - 1.17) 3.96 H APTT (25 - 37 SEC) 84 H 86 H Hematology CBC w Diff NO MAN DIFF REQ WBC (4.8 - 10.8 /CUMM) 6.6 RBC (4.70 - 6.10 /CUMM) 2.57 L Hgb (14.0 - 18.0 G/DL) 7.9 L Hct (42 - 52 %) 24.7 L MCV (80.0 - 94.0 FL) 96.1 H MCH (27.0 - 31.0 PG) 30.6 MCHC (33.0 - 37.0 G/DL) 31.9 L RDW (11.5 - 14.5 %) 19.3 H Plt Count (130 - 400 /CUMM) 154 MPV (7.4 - 10.4 FL) 9.3 Gran % (42.2 - 75.2 %) 74.8 Lymphocytes % (20.5 - 51.1 %) 19.2 L Monocytes % (1.7 - 9.3 %) 3.9 Eosinophils % (0 - 5 %) 0.4 Basophils % (0.0 - 2.0 %) 1.7 Absolute Granulocytes (1.4 - 6.5 /CUMM) 4.9 Absolute Lymphocytes (1.2 - 3.4 /CUMM) 1.3 Absolute Monocytes (0.10 - 0.60 /CUMM) 0.3 Absolute Eosinophils (0.0 - 0.7 /CUMM) 0 Absolute Basophils (0.0 - 0.2 /CUMM) 0.1 01/17 01/17 0500 0230 Chemistry Sodium (137 - 145 mmol/L) 139 Potassium (3.5 - 5.1 mmol/L) 3.4 L Chloride (98 - 107 mmol/L) 101 Carbon Dioxide (22 - 30 mmol/L) 27 Anion Gap (5 - 16) 11 BUN (9 - 20 mg/dL) 32 H Creatinine (0.7 - 1.2 mg/dL) 3.8 H Estimated GFR (>60 ml/min) 17 L Glucose (65 - 99 mg/dL) 180 H Calcium (8.4 - 10.2 mg/dL) 8.5 Phosphorus (2.5 - 4.5 mg/dL) 3.1 Magnesium (1.6 - 2.3 mg/dL) 2.0 Total Bilirubin (0.2 - 1.3 mg/dL) 0.4 AST (17 - 59 U/L) 4 L ALT (21 - 72 U/L) 18 L Albumin (3.5 - 5.0 g/dL) 3.0 L Coagulation PT (9.4 - 12.5 SEC) Cancelled 22.0 H INR (0.90 - 1.17) Cancelled 2.00 H APTT (25 - 37 SEC) 70 H Hematology CBC w Diff NO MAN DIFF REQ WBC (4.8 - 10.8 /CUMM) 6.7 RBC (4.70 - 6.10 /CUMM) 2.57 L Hgb (14.0 - 18.0 G/DL) 8.0 L Hct (42 - 52 %) 24.6 L MCV (80.0 - 94.0 FL) 95.5 H MCH (27.0 - 31.0 PG) 31.0 MCHC (33.0 - 37.0 G/DL) 32.4 L RDW (11.5 - 14.5 %) 17.9 H Plt Count (130 - 400 /CUMM) 158 MPV (7.4 - 10.4 FL) 9.2 Gran % (42.2 - 75.2 %) 84.9 H Lymphocytes % (20.5 - 51.1 %) 11.7 L Monocytes % (1.7 - 9.3 %) 3.2 Eosinophils % (0 - 5 %) 0 Basophils % (0.0 - 2.0 %) 0.2 Absolute Granulocytes (1.4 - 6.5 /CUMM) 5.7 Absolute Lymphocytes (1.2 - 3.4 /CUMM) 0.8 L Absolute Monocytes (0.10 - 0.60 /CUMM) 0.2 Absolute Eosinophils (0.0 - 0.7 /CUMM) 0 Absolute Basophils (0.0 - 0.2 /CUMM) 0 01/16 01/16 1855 1100 Coagulation APTT (25 - 37 SEC) 54 H 105 *H Hematology CBC w Diff NO MAN DIFF REQ WBC (4.8 - 10.8 /CUMM) 7.9 RBC (4.70 - 6.10 /CUMM) 2.59 L Hgb (14.0 - 18.0 G/DL) 8.1 L Hct (42 - 52 %) 24.9 L MCV (80.0 - 94.0 FL) 96.1 H MCH (27.0 - 31.0 PG) 31.2 H MCHC (33.0 - 37.0 G/DL) 32.5 L RDW (11.5 - 14.5 %) 18.3 H Plt Count (130 - 400 /CUMM) 163 MPV (7.4 - 10.4 FL) 9.4 Gran % (42.2 - 75.2 %) 87.6 H Lymphocytes % (20.5 - 51.1 %) 9.7 L Monocytes % (1.7 - 9.3 %) 2.5 Eosinophils % (0 - 5 %) 0.1 Basophils % (0.0 - 2.0 %) 0.1 Absolute Granulocytes (1.4 - 6.5 /CUMM) 6.9 H Absolute Lymphocytes (1.2 - 3.4 /CUMM) 0.8 L Absolute Monocytes (0.10 - 0.60 /CUMM) 0.2 Absolute Eosinophils (0.0 - 0.7 /CUMM) 0 Absolute Basophils (0.0 - 0.2 /CUMM) 0 01/16 01/15 01/15 0406 2303 1100 Chemistry Sodium (137 - 145 mmol/L) 138 Potassium (3.5 - 5.1 mmol/L) 3.8 Chloride (98 - 107 mmol/L) 100 Carbon Dioxide (22 - 30 mmol/L) 26 Anion Gap (5 - 16) 12 BUN (9 - 20 mg/dL) 43 H Creatinine (0.7 - 1.2 mg/dL) 4.7 H Estimated GFR (>60 ml/min) 13 L Glucose (65 - 99 mg/dL) 128 H Calcium (8.4 - 10.2 mg/dL) 8.7 Phosphorus (2.5 - 4.5 mg/dL) 3.5 Magnesium (1.6 - 2.3 mg/dL) 2.0 Total Bilirubin (0.2 - 1.3 mg/dL) 0.3 AST (17 - 59 U/L) 9 L ALT (21 - 72 U/L) 19 L Albumin (3.5 - 5.0 g/dL) 2.8 L Coagulation PT (9.4 - 12.5 SEC) 12.1 INR (0.90 - 1.17) 1.11 APTT (25 - 37 SEC) 74 H 67 H Hematology CBC w Diff NO MAN DIFF REQ WBC (4.8 - 10.8 /CUMM) 7.8 RBC (4.70 - 6.10 /CUMM) 2.51 L Hgb (14.0 - 18.0 G/DL) 7.8 L Hct (42 - 52 %) 24.0 L MCV (80.0 - 94.0 FL) 95.8 H MCH (27.0 - 31.0 PG) 31.2 H MCHC (33.0 - 37.0 G/DL) 32.5 L RDW (11.5 - 14.5 %) 18.5 H Plt Count (130 - 400 /CUMM) 163 MPV (7.4 - 10.4 FL) 9.3 Gran % (42.2 - 75.2 %) 81.3 H Lymphocytes % (20.5 - 51.1 %) 15.5 L Monocytes % (1.7 - 9.3 %) 2.7 Eosinophils % (0 - 5 %) 0.2 Basophils % (0.0 - 2.0 %) 0.3 Absolute Granulocytes (1.4 - 6.5 /CUMM) 6.3 Absolute Lymphocytes (1.2 - 3.4 /CUMM) 1.2 Absolute Monocytes (0.10 - 0.60 /CUMM) 0.2 Absolute Eosinophils (0.0 - 0.7 /CUMM) 0 Absolute Basophils (0.0 - 0.2 /CUMM) 0 Imaging/Other Studies: None new
[2018-01-18 11:09] LABS: PTT > 120 SEC (25-37)
[2018-01-18 11:10] LABS: PT 45.8 SEC (9.4-12.5)
--- NOTE | 2018-01-18 11:56 | PN- Infect Dx ---
Subjective Subjective: Afebrile. He offers no complaints. His blood pressure remains stable, currently on dialysis Objective Last 24 Hrs of Vital Signs/I&O Vital Signs Date Time Temp Pulse Resp B/P B/P Pulse O2 O2 Flow FiO2 Mean Ox Delivery Rate 01/18 0659 98.0 68 20 98/62 98 CPAP 01/18 0021 72 97 01/17 2215 69 94 01/17 2206 98.2 69 20 92/50 92 Room Air 01/17 1600 98.0 68 16 90/52 96 Room Air Intake & Output 01/18 1600 01/18 0800 01/18 0000 Intake Total 390 60 Output Total Balance 390 60 Intake, IV 270 60 Intake, Oral 120 Number 1 Bowel Movements Patient 204 lb Weight Weight Bed scale Measurement Method Physical Exam Other Physical Findings: He appears comfortable in no acute distress Neck left IJ triple-lumen catheter with no inflammation at the site Lungs are clear Heart regular rhythm with a 1/6 systolic ejection murmur Extremities right AKA dressing intact Results Last 24 Hours of Lab Results: Laboratory Tests 01/18 01/18 01/18 1030 0830 0330 Chemistry BUN (9 - 20 mg/dL) 49 H Coagulation PT (9.4 - 12.5 SEC) 45.8 *H 43.8 *H INR (0.90 - 1.17) 4.14 *H 3.96 H APTT (25 - 37 SEC) > 120 *H 01/18 01/17 0330 1500 Chemistry Sodium (137 - 145 mmol/L) 137 Potassium (3.5 - 5.1 mmol/L) 3.7 Chloride (98 - 107 mmol/L) 101 Carbon Dioxide (22 - 30 mmol/L) 24 Anion Gap (5 - 16) 12 BUN (9 - 20 mg/dL) 47 H Creatinine (0.7 - 1.2 mg/dL) 5.0 H Estimated GFR (>60 ml/min) 12 L Glucose (65 - 99 mg/dL) 123 H Calcium (8.4 - 10.2 mg/dL) 8.3 L Phosphorus (2.5 - 4.5 mg/dL) 3.2 Magnesium (1.6 - 2.3 mg/dL) 2.0 Total Bilirubin (0.2 - 1.3 mg/dL) 0.4 AST (17 - 59 U/L) 5 L ALT (21 - 72 U/L) 16 L Albumin (3.5 - 5.0 g/dL) 2.8 L Coagulation APTT (25 - 37 SEC) 84 H 86 H Hematology CBC w Diff NO MAN DIFF REQ WBC (4.8 - 10.8 /CUMM) 6.6 RBC (4.70 - 6.10 /CUMM) 2.57 L Hgb (14.0 - 18.0 G/DL) 7.9 L Hct (42 - 52 %) 24.7 L MCV (80.0 - 94.0 FL) 96.1 H MCH (27.0 - 31.0 PG) 30.6 MCHC (33.0 - 37.0 G/DL) 31.9 L RDW (11.5 - 14.5 %) 19.3 H Plt Count (130 - 400 /CUMM) 154 MPV (7.4 - 10.4 FL) 9.3 Gran % (42.2 - 75.2 %) 74.8 Lymphocytes % (20.5 - 51.1 %) 19.2 L Monocytes % (1.7 - 9.3 %) 3.9 Eosinophils % (0 - 5 %) 0.4 Basophils % (0.0 - 2.0 %) 1.7 Absolute Granulocytes (1.4 - 6.5 /CUMM) 4.9 Absolute Lymphocytes (1.2 - 3.4 /CUMM) 1.3 Absolute Monocytes (0.10 - 0.60 /CUMM) 0.3 Absolute Eosinophils (0.0 - 0.7 /CUMM) 0 Absolute Basophils (0.0 - 0.2 /CUMM) 0.1 Last 24 Hours of Brendan Results: No new cultures Assessment/Plan ID Impression: Stable, with blood pressure remaining stable, and with temperatures and white blood cell count remaining normal on Cefazolin now Day 23 of treatment for presumed Staph aureus endocarditis, now 3 weeks since negative blood cultures, with the YULIA revealing a perforation of the mitral valve leaflet and moderate to severe mitral regurgitation, for which he will require valve replacement, now 16 days status post right AKA. Have discussed the timing of valve surgery with Cardiology, who has discussed the patient with Cardiothoracic surgery. His recent CTA of the head revealed a significant periapical lucency associated with the right mandibular canine, with adjacent mandibular buccal cortical erosion, which is of unclear significance, as he appears to be asymptomatic, but, given the impending valve replacement, this should be addressed prior to the surgery. Suggestion: 1. Await decision regarding timing of mitral valve replacement 2. Will need Oral surgery evaluation prior to valve surgery 3. Continue Cefazolin, dosed after each dialysis, for at least a 6 week course
--- NOTE | 2018-01-18 12:45 | PN- Cardiology ---
Subjective Subjective: Patient seen during dialysis, resting comfortably without new complaint. Objective Vital Signs and I&Os Vital Signs Date Time Temp Pulse Resp B/P B/P Pulse O2 O2 Flow FiO2 Mean Ox Delivery Rate 01/18 0659 98.0 68 20 98/62 98 CPAP 01/18 0021 72 97 01/17 2215 69 94 01/17 2206 98.2 69 20 92/50 92 Room Air 01/17 1600 98.0 68 16 90/52 96 Room Air Intake & Output 01/18 1600 01/18 0800 01/18 0000 01/17 1600 01/17 0800 01/17 0000 Intake Total 390 60 508 2818 658.8 Output Total Balance 390 60 508 2818 658.8 Intake, 2500 Dialysate Intake, IV 270 60 268 268 358.8 Intake, Oral 120 240 50 300 Number 1 Bowel Movements Patient 204 lb 193 lb 160 lb Weight Weight Bed scale Bed scale Measurement Method Physical Exam: General: no distress, alert Eyes: No obvious scleral icterus. HEENT: No jugular venous distention or abnormal jugular venous pulsations. Cardiovascular: Normal intensity S1/S2. Regular Respiratory: no rales/ronchi Abdomen: Soft, nontender with no guarding or rebound tenderness. Musculoskeletal: No clubbing or cyanosis noted; s/p AKA Skin: Warm Neurologic: normal speech Current Medications: Current Medications Sig/Bobo Start time Last Medication Dose Route Stop Time Status Admin Albumin Human 12.5 GM .Q30MIN PRN 01/02 1000 AC 01/04 IV 1058 Aspirin Buffered 81 MG DAILY 01/03 1000 AC 01/17 PO 0957 Atorvastatin Calcium 10 MG 01/05 1700 AC 01/17 PO 1704 Bisacodyl 5 MG DAILY 01/06 1345 AC 01/17 PO 0957 Cefazolin Sodium 2 GM 01/11 1000 DC 01/16 N/A 1 UNIT IV 1231 Cinacalcet 30 MG 01/02 1700 AC 01/17 PO 170 Clopidogrel Bisulfate 75 MG 01/05 AC 01/17 PO 215 Cyanocobalamin 1,000 MCG DAILY 01/03 1000 AC 01/17 PO 0957 Docusate Sodium 100 MG DAILY 01/03 1000 AC 01/17 PO 0957 Epoetin Jaron 4,000 UNIT MoWeFr PRN 01/06 1000 AC IV Epoetin Jaron 3,000 UNIT MoWeFr PRN 01/06 1000 AC IV Heparin Sodium 25,000 UNIT Q12H 01/14 0730 AC 01/18 (Porcine) IV 0556 Sodium Chloride 500 ML Hydrocortisone 50 MG Q12 01/17 2200 AC 01/17 Sodium Succinate IV 2156 Hydrocortisone 50 MG Q8 01/10 0600 DC 01/17 Sodium Succinate IV 0522 Hydromorphone HCl 1 MG Q12 PRN 01/17 1715 AC PO Insulin Aspart 0 TIDAC 01/13 0800 AC 01/17 SC 1149 Lidocaine/Prilocaine 1 GAVI DAILY PRN 01/02 1645 AC 01/16 TOP 0715 Multivitamins 1 TAB DAILY 01/03 1000 AC 01/17 PO 0957 Polyethylene Glycol 17 GM DAILY 01/05 1349 AC 01/11 PO 1005 Senna 187 MG AT BEDTIME 01/05 2200 AC 01/17 PO 2156 Sevelamer Carbonate 2,400 MG WM 01/02 1700 AC 01/17 PO 1705 Warfarin Sodium 3 MG COUMADIN 1700 01/17 1700 DC 01/17 PO 01/17 2359 1704 Results Last 48 Hrs of Labs/Mics: Laboratory Tests 01/18/18 1030: PT 45.8 *H, INR 4.14 *H, APTT > 120 *H 01/18/18 0830: 01/18/18 0330: PT 43.8 *H, INR 3.96 H 01/18/18 0330: Anion Gap 12, Estimated GFR 12 L, Glucose 123 H, Calcium 8.3 L, Phosphorus 3.2, Magnesium 2.0, Total Bilirubin 0.4, AST 5 L, ALT 16 L, Albumin 2.8 L, APTT 84 H, CBC w Diff NO MAN DIFF REQ, RBC 2.57 L, MCV 96.1 H, MCH 30.6, MCHC 31.9 L, RDW 19.3 H, MPV 9.3, Gran % 74.8, Lymphocytes % 19.2 L, Monocytes % 3.9, Eosinophils % 0.4, Basophils % 1.7, Absolute Granulocytes 4.9, Absolute Lymphocytes 1.3, Absolute Monocytes 0.3, Absolute Eosinophils 0, Absolute Basophils 0.1 01/17/18 1500: APTT 86 H 01/17/18 0500: PT Cancelled, INR Cancelled 01/17/18 0230: Anion Gap 11, Estimated GFR 17 L, Glucose 180 H, Calcium 8.5, Phosphorus 3.1, Magnesium 2.0, Total Bilirubin 0.4, AST 4 L, ALT 18 L, Albumin 3.0 L, PT 22.0 H, INR 2.00 H, APTT 70 H, CBC w Diff NO MAN DIFF REQ, RBC 2.57 L, MCV 95.5 H, MCH 31.0, MCHC 32.4 L, RDW 17.9 H, MPV 9.2, Gran % 84.9 H, Lymphocytes % 11.7 L, Monocytes % 3.2, Eosinophils % 0, Basophils % 0.2, Absolute Granulocytes 5.7, Absolute Lymphocytes 0.8 L, Absolute Monocytes 0.2, Absolute Eosinophils 0, Absolute Basophils 0 01/16/18 1855: APTT 54 H, CBC w Diff NO MAN DIFF REQ, RBC 2.59 L, MCV 96.1 H, MCH 31.2 H, MCHC 32.5 L, RDW 18.3 H, MPV 9.4, Gran % 87.6 H, Lymphocytes % 9.7 L, Monocytes % 2.5, Eosinophils % 0.1, Basophils % 0.1, Absolute Granulocytes 6.9 H, Absolute Lymphocytes 0.8 L, Absolute Monocytes 0.2, Absolute Eosinophils 0, Absolute Basophils 0 Recent Imaging Studies: Telemetry tracings were personally reviewed and show sinus rhythm Assessment/Plan Assessment/Plan 1. Coronary disease by history status post coronary bypass surgery 2006 with complex PCI to the left main into the circumflex September 2017 with normal LV function 2. Hx of Hypertension, currently hypotensive with questionable adrenal insufficiency 3. Peripheral arterial disease status post prior amputation now S/P right AKA 4. End-stage renal disease on dialysis 5. 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 Repeat YULIA to 01/02/18 was negative for vegetations; however, with severe mitral regurgitation and possible perforation 6. Diabetes 7. Fever and chills with hypotension most likely secondary to sepsis. 8. Elevated troponins, minimal, not due to ACS 9. Intermittent atrial fibrillation possibly due to sepsis, now on AC The patient remains clinically stable. I had extensive discussions with the patient along with multiple subspecialties including infectious disease, Nephrology, CT surgery (Dr. Cohen), and the primary medical team. While the patient will likely need mitral valve replacement in the future he is currently hemodynamically stable and still requires dual anti-platelet therapy along with his anticoagulation given the left main PCI with drug-eluting stent in september. At this time he will be continued on triple therapy along with continued intravenous antibiotics and will be planned for outpatient CT surgery consultation to discuss the optimal timing of mitral valve surgery; will likely not require repeat cardiac catheterization prior to surgery but will need to discuss if the surgery can be done while on anti-platelet therapy or if the plavix will need to be discontinued prior to surgical intervention. He will also require oral surgery evaluation prior to valve surgery. He will need close cardiology follow-up after discharge. He will likely undergo atrial appendage ligation during surgery which hopefully will prevent the need for lifetime oral anticoagulation. He is currently in sinus rhythm. Rocco Jimenez MD [facility] Continue telemetry? No
--- NOTE | 2018-01-18 13:46 | Patient Discharge Instructions ---
Discharge Instructions General Discharge Information You were seen/treated for: Septic shock with MSSA bacteremia Mitral valve perforation ESRD with dialysis Special Instructions: Please follow up with your PCP in a week Please follow up with your surveyor instrument assistant - in a week Please follow up with Infectious doctor in regard to endocarditis follow up Please follow up with Dr. Silva for preoperative evaluation Please follow up with Nephrology for dialysis. Diet Recommended Diet: Renal Dialysis Activity Activity Self Limited: Yes Acute Coronary Syndrome Inclusion Criteria At DC or during hospital stay patient has or had the following: ACS DIAGNOSIS No Discharge Core Measures Meds if any: Prescribed or Continued at Discharge Meds if any: NOT Prescribed or Continued at Discharge Congestive Heart Failure Inclusion Criteria At DC or during hospital stay patient has or had the following: CHF DIAGNOSIS No Discharge Core Measures Meds if any: Prescribed or Continued at Discharge Meds if any: NOT Prescribed or Continued at Discharge Cerebrovascular accident Inclusion Criteria At DC or during hospital stay patient has or had the following: CVA/TIA Diagnosis No Discharge Core Measures Meds if any: Prescribed or Continued at Discharge Meds if any: NOT Prescribed or Continued at Discharge Venous thromboembolism Inclusion Criteria VTE Diagnosis No VTE Type NONE VTE Confirmed by (Test) NONE Discharge Core Measures - Per Current guidelines, there needs to be overlap - treatment for the first 5 days of Warfarin therapy. - If discharged on Warfarin prior to 5 days of - overlap therapy, the patient will need to be - assessed for post discharge needs including - *Post discharge parental anticoagulation - *Warfarin and/or parental anticoagulation education - *Follow up date to check INR post discharge At least 5 days overlap therapy as Inpatient No Meds if any: Prescribed or Continued at Discharge Note: Overlap Therapy is Warfarin and Anticoagulant Meds if any: NOT Prescribed or Continued at Discharge
[2018-01-18 14:34] VITALS: BP 100/54
[2018-01-18 22:33] VITALS: BP 110/64
[2018-01-19 06:36] VITALS: BP 88/54
--- NOTE | 2018-01-19 07:40 | PN- Endocrinology ---
Assessment/Plan Endoscopy Assessment: Patient states he feels okay. He had dialysis yesterday. After his dialysis his blood pressure is much lower. Recent blood pressure is 88/50. Patient is on hydrocortisone 50 mg twice a day by mouth. Plan: In view of the patient's hypotension, suggest rather than reduce the patient's hydrocortisone we should continue hydrocortisone by mouth 50 mg twice a day. Once the patient's blood pressure stabilizes further we can reduce his dose further. Subjective Subjective: Feels okay Review of Systems Constitutional: Denies: chills, fever. Cardiovascular: Denies: chest pain. Respiratory: Denies: cough, short of breath. Gastrointestinal: Denies: abdominal pain, nausea, vomiting. Objective Last 24 Hrs of Vital Signs/I&O Vital Signs Date Time Temp Pulse Resp B/P B/P Pulse O2 O2 Flow FiO2 Mean Ox Delivery Rate 01/19 0636 98.0 68 18 88/54 97 CPAP 01/19 0029 70 98 01/19 0000 96 CPAP 01/18 2233 98.1 94 18 110/64 97 01/18 2212 74 95 01/18 1434 97.8 78 18 100/54 96 Room Air Intake & Output 01/19 0800 01/19 0000 01/18 1600 Intake Total 400 600 Output Total 0 3000 Balance 400 -2400 Intake, IV 200 Intake, Oral 400 400 Number 1 1 Bowel Movements Output, 3000 Dialysate Output, Urine 0 Patient 217 lb Weight Weight Bed scale Measurement Method Vital Signs Date Time Temp Pulse Resp B/P B/P Pulse O2 O2 Flow FiO2 Mean Ox Delivery Rate 01/19 0636 98.0 68 18 88/54 97 CPAP 01/19 0029 70 98 01/19 0000 96 CPAP 01/18 2233 98.1 94 18 110/64 97 01/18 2212 74 95 01/18 1434 97.8 78 18 100/54 96 Room Air Intake & Output 01/19 0800 01/19 0000 01/18 1600 Intake Total 400 600 Output Total 0 3000 Balance 400 -2400 Intake, IV 200 Intake, Oral 400 400 Number 1 1 Bowel Movements Output, 3000 Dialysate Output, Urine 0 Patient 217 lb Weight Weight Bed scale Measurement Method Physical Exam General Appearance: alert, awake, comfortable Head: normal appearance Respiratory: normal breath sounds Cardiovascular: regular rate/rhythm Abdomen: normal bowel sounds Extremities: normal inspection Current Medications: Current Medications Sig/Bobo Start time Last Medication Dose Route Stop Time Status Admin Albumin Human 12.5 GM .Q30MIN PRN 01/02 1000 AC 01/04 IV 1058 Aspirin Buffered 81 MG DAILY 01/03 1000 AC 01/18 PO 1243 Atorvastatin Calcium 10 MG 1700 01/05 1700 AC 01/18 PO 1651 Bisacodyl 5 MG DAILY 01/06 1345 AC 01/18 PO 1242 Cefazolin Sodium 2 GM 01/11 1000 DC 01/16 N/A 1 UNIT IV 1231 Cinacalcet 30 MG 17001/02 1700 AC 01/18 PO 1651 Clopidogrel Bisulfate 75 MG 01/05 2000 AC 01/18 PO 2203 Cyanocobalamin 1,000 MCG DAILY 01/03 1000 AC 01/18 PO 1245 Docusate Sodium 100 MG DAILY 01/03 1000 AC 01/18 PO 1244 Epoetin Jaron 4,000 UNIT MoWeFr PRN 01/06 1000 AC IV Epoetin Jaron 3,000 UNIT MoWeFr PRN 01/06 1000 AC IV Heparin Sodium 25,000 UNIT Q12H 01/14 0730 DC 01/18 (Porcine) IV 0730 Sodium Chloride 500 ML Hydrocortisone 50 MG Q12 01/19 1000 AC PO Hydrocortisone 50 MG Q12 01/17 2200 DC 01/19 Sodium Succinate IV 01/19 0300 0045 Hydromorphone HCl 1 MG Q12 PRN 01/17 1715 AC 01/18 PO 1649 Insulin Aspart 0 TIDAC 01/13 0800 AC 01/18 SC 1743 Lidocaine/Prilocaine 1 GAVI DAILY PRN 01/02 1645 AC 01/16 TOP 0715 Melatonin 5 MG AT BEDTIME 01/18 2200 AC 01/18 PO 2203 Multivitamins 1 TAB DAILY 01/03 1000 AC 01/18 PO 1243 Patient Medication 1 ED ONE ONE 01/18 1630 DC Teaching ED 01/18 1631 Polyethylene Glycol 17 GM DAILY 01/05 1349 AC 01/11 PO 1005 Senna 187 MG AT BEDTIME 01/05 2200 AC 01/18 PO 2203 Sevelamer Carbonate 2,400 MG WM 01/02 1700 AC 01/18 PO 1743 Results Pertinent Lab/Brendan Results: Laboratory Tests 01/19 01/18 01/18 01/18 01/18 0640 1530 1030 UNK 0830 Chemistry Sodium Pending Potassium Pending Chloride Pending Carbon Dioxide Pending Anion Gap Pending BUN (9 - 20 mg/dL) Pending 19 49 H Creatinine Pending BUN/Creatinine Ratio Pending Total Bilirubin Pending Direct Bilirubin Pending AST Pending ALT Pending Alkaline Phosphatase Pending Total Protein Pending Albumin Pending Coagulation PT (9.4 - 12.5 SEC) Pending 45.8 *H INR (0.90 - 1.17) Pending 4.14 *H APTT (25 - 37 SEC) Cancelled > 120 *H Hematology CBC w Diff Pending WBC Pending RBC Pending Hgb Pending Hct Pending MCV Pending MCH Pending MCHC Pending RDW Pending Plt Count Pending MPV Pending
--- NOTE | 2018-01-19 07:54 | PN- Housestaff ---
Ginny MARTINEZ,Shruthi 01/19/18 0754: Subjective Follow-up For: MSSA bacteremia with relapsed endocarditis Mitral valve regurgitation probably from mitral perf ESRD on dialysis Subjective: Seen and examined Asymptomatic. Remains at baseline. Removed Left IJ line at bedside. Review of Systems Constitutional: Reports: see HPI. Objective Last 24 Hrs of Vital Signs/I&O Vital Signs Date Time Temp Pulse Resp B/P B/P Pulse O2 O2 Flow FiO2 Mean Ox Delivery Rate 01/19 0636 98.0 68 18 88/54 97 CPAP 01/19 0029 70 98 01/19 0000 96 CPAP 01/18 2233 98.1 94 18 110/64 97 01/18 2212 74 95 01/18 1434 97.8 78 18 100/54 96 Room Air Intake & Output 01/19 0800 01/19 0000 01/18 1600 Intake Total 400 600 Output Total 0 3000 Balance 400 -2400 Intake, IV 200 Intake, Oral 400 400 Number 1 1 Bowel Movements Output, 3000 Dialysate Output, Urine 0 Patient 98.43 kg Weight Weight Bed scale Measurement Method Physical Exam General Appearance: Alert, Oriented X3, Cooperative Skin: No Rashes, No Breakdown HEENT: Atraumatic, PERRLA, EOMI Neck: JVD present Cardiovascular: Normal S1, Normal S2, systolic murmur prominent in mitral area Lungs: Clear to Auscultation, Normal Air Movement Abdomen: Normal Bowel Sounds, Soft, No Tenderness Neurological: Normal Tone, Sensation Intact Extremities: No Clubbing, No Cyanosis, right AKA with dressing left 4+ pitting edema Vascular: Normal Pulses Current Medications: Current Medications Sig/Bobo Start time Last Medication Dose Route Stop Time Status Admin Albumin Human 12.5 GM .Q30MIN PRN 01/02 1000 DCD 01/04 IV 1058 Aspirin Buffered 81 MG DAILY 01/03 1000 DCD 01/19 PO 0824 Atorvastatin Calcium 10 MG 1700 01/05 1700 DCD 01/18 PO 1651 Bisacodyl 5 MG DAILY 01/06 1345 DCD 01/19 PO 0824 Cefazolin Sodium 2 GM ONCE ONE 01/19 1045 DC 01/19 N/A 1 UNIT IV 01/19 1114 1110 Cinacalcet 30 MG 0 01/02 1700 DCD 01/18 PO 1651 Clopidogrel Bisulfate 75 MG 01/05 DCD 03/14 PO 2203 Cyanocobalamin 1,000 MCG DAILY 01/03 1000 DCD 01/19 PO 0823 Docusate Sodium 100 MG DAILY 01/03 1000 DCD 01/19 PO 0824 Epoetin Jaron 4,000 UNIT MoWeFr PRN 01/06 1000 DCD IV Epoetin Jaron 3,000 UNIT MoWeFr PRN 01/06 1000 DCD IV Hydrocortisone 50 MG Q12 01/19 1000 DCD 01/19 PO 0823 Hydrocortisone 50 MG Q12 01/17 2200 DC 01/19 Sodium Succinate IV 01/19 0300 0045 Hydromorphone HCl 1 MG Q12 PRN 01/17 1715 DCD 01/18 PO 1649 Insulin Aspart 0 TIDAC 01/13 0800 DCD 01/18 SC 1743 Ketorolac 15 MG ONCE ONE 01/19 1245 CAN Tromethamine IV 01/19 1246 Lidocaine/Prilocaine 1 GAVI DAILY PRN 01/02 1645 DCD 01/16 TOP 0715 Melatonin 5 MG AT BEDTIME 01/18 2200 DCD 01/18 PO 2203 Multivitamins 1 TAB DAILY 01/03 1000 DCD 01/19 PO 0824 Polyethylene Glycol 17 GM DAILY 01/05 1349 DCD 01/11 PO 1005 Senna 187 MG AT BEDTIME 01/05 2200 DCD 01/18 PO 2203 Sevelamer Carbonate 2,400 MG WM 01/02 1700 DCD 01/19 PO 0823 Warfarin Sodium 3 MG COUMADIN 1700 ONE 01/19 1700 DCD PO 01/19 1701 Last 24 Hrs of Lab/Brendan Results Last 24 Hrs of Labs/Mics: Laboratory Tests 01/19/18 0640: Anion Gap 14, Estimated GFR 15 L, BUN/Creatinine Ratio 8.6, Total Bilirubin 0.2 , Direct Bilirubin 0.2, AST 5 L, ALT 9 L, Alkaline Phosphatase 87, Total Protein 5.5 L, Albumin 2.9 L, PT 31.4 H, INR 2.85 H, CBC w Diff NO MAN DIFF REQ, RBC 2.64 L, MCV 96.6 H, MCH 31.1 H, MCHC 32.2 L, RDW 18.4 H, Gran % 75.1, Lymphocytes % 18.8 L, Monocytes % 4.9, Eosinophils % 0.8, Basophils % 0.4 , Absolute Granulocytes 5.5, Absolute Lymphocytes 1.4, Absolute Monocytes 0.4, Absolute Eosinophils 0.1, Absolute Basophils 0 Assessment/Plan Assessment: Patient is a 57-year-old male with past medical history significant for PAD s/p right BKA, ESRD on hemodialysis, CAD s/p PCI and 1 drug-eluting stent in the left main circumflex artery (September 2017) and s/p quadruple CABG (2006), diabetes, AMANDA on CPAP at night, chronic anemia, most recent admission 2.5months ago with septic arthritis and MSSA, mitral valve endocarditis, osteomyelitis, history of C. difficile - admitted on december 26 with lethargy & chills. He was admitted due to Septic shock of unclear source. Admitted to ICU from 12/26/17 to 01/17/18. Transferred to [facility] on 01/18/18. Septic shock secondary to MSSA f/b prolonged hypotension (adrenal insufficiency) Blood cultures grew Staph aureus, initially started on IV vanco f/b conversion to cefazolin IV 2 g with dialysis as MSSA. He underwent Left IJ placement and started on pressors given poor candidate for resuscitation with ESRD. He remained on pressors for a long time[facility] which was removed secondary to MSSA bacteremia 2, pt underwent placement of RIJ TLC On 12/30 for continous need for pressors for blood pressure maintainance. Intially started on levophed f/b undergoing stump repair from right BKA to AKA for concern of stump infection although pathology did not show any significant inflammation. Also started on Albumin 12.5gm PRN(received only 1 dose). Eventually found to have low cortisol versus autonomic insufficiency. Once found to have adrenal insufficiency, started on dopamine drip (on 01/11/18) for its favourable effect on MR. He is off pressors by 01/12/18 and maintained blood pressure off pressors. started on hydrocortisone 100 mg IV q8 on 01/08/18 and slowly tapered down to 50mg Q12 now oral. His blood pressure now is around 88/50mmHg -- HOLDING at a MAP of 55-60. It also benefits his preload and maintains his cardiac output especially with the Mitral regurgitation. Discontinued metoprolol, lisinopril (home medications). I removed left IJ at bedside today. Dental caries His recent CTA of the head on 01/13/18 revealed a significant periapical lucency associated with the right mandibular canine, with adjacent mandibular buccal cortical erosion, which is of unclear significance, as he appears to be asymptomatic, but, given the impending valve replacement, this should be addressed prior to the surgery. CT spine ruled out Diskitis. Low H&H Patient did receive 2 units of PRBC during his hospitalization. Once after the procedure, f/b acute drop later. H&H today is 8.2/25.5. Infective endocarditis This is a relapse. He needs 6 weeks of IV cefazolin 2gm with dialysis- Tue, tue, tuesday. His last dose on 01/18/18 was missed so received a dose today. Completed 3 weeks (23days). He needs 8 more doses of antibiotic to complete, however he needs CT surgery follow up before completion of antibiotic course. Intermittent Atrial Fibrillation Initially started on IV heparin drip for elevated troponins initially. He subsequent went in and out of A.fib presumably secondary to infection. Elevated troponin was secondary to type II however, continued heparin drip for A.fib, given mitral insufficiency, bridged with warfarin. Heparin discontinued once INR is therapeutic. INR today is 2.8, he needs to be given warfarin today. Continue warfarin 3mg daily and check INR for a goal of 2-3. Severe Mitral regurgitation with possible perforation He underwent the YULIA 01/02/18 which was negative for vegetations but did show severe mitral regurgitation giving the possibility of perforation. He likely merits Mitral valve replacement in near future. Given recent stenting in september, we will continue DAPT along with anticoagulation. He does benefit outpatient CT surgery consultation for optimal timing. Per cardio no need for cath now. Needs close cardiac follow up. CAD s/p CABG (2006) with complex PCI on LAD into LCx Consider uninteruppted DAPT (ASA and Plavix). ESRD on dialysis (MWF) He has been getting dialysis( Tue, tue, tue), closely followed by nephrology. . Continue Multivitamin, sevelamir, multivitamin. PAD s/p BKA now s/p AKA Dressing in place last on 01/18/18. No acute infection in pathology. continue DAPT. Diabetes Continue ISS AMANDA on CPAP Maintained on CPAP. DVT prophylaxis INR is therapeutic. Code status Full code Problem List: 1. Renal failure 2. A-fib 3. Infective endocarditis 4. Mitral regurgitation Pain Ratin Pain Location: n/a Pain Goal: Pain 4 or less Pain Plan: tylenol prn Tomorrow's Labs & Rationales: none Twyla Woods MDpeymanariel 01/19/18 1517: Attending MD Review Statement Attending Statement Attending MD Statement: examined this patient, discuss w/resident/PA/STAND UP COMEDIAN, agreed w/resident/PA/STAND UP COMEDIAN, discussed with family, reviewed EMR data (avail), discussed with nursing, discussed with case mgmt, amended to note Attending Assessment/Plan: Patient seen and examined. Resting comfortably and not in any acute distress. No issues overnight. Blood pressure remains borderline. However he appears to be perfusing adequately. This was discussed with the cardiology service, I personally spoke with Dr. Erasto Sepulveda. He is in agreement with the patient being discharged today with his current blood pressure readings. He will continue on systemic steroid therapy with Taper as recommended by the endocrinology service. Patient is to continue on antibiotic therapy with hemodialysis to complete another 3 weeks of therapy. Patient and are understandably upset about the changes in recommendations regarding management of his cardiac condition. While in the intensive care unit initial plan was to transfer the patient for evaluation for cardiac catheterization and valve surgery. After he was transferred out of the unit yesterday his partition notcher is confirm this plan with the patient however following further discussions with his primary partition notcher and other caregivers the decision was made by his cardiology service to continue treating the patient with antibiotic therapy and delay surgery in order to continue patient on dual antiplatelet therapy given his relatively recent cardiac stent placement. I did discuss this recommendation with the patient in great detail yesterday. I did explain the rationale for the change in plan. Patient and are upset about the dynamic nature of the different recommendations. I did have a long conversation with the patient's today explaining the rationale for the change in plan. She verbalized understanding but remained upset. Patient will be discharged today to the [facility] facility with recommendations as detailed in the discharge summary.
[2018-01-19 08:20] LABS: ABSOLUTE BASOPHIL COUNT 0 /CUMM (0.0-0.2); ABSOLUTE EOSINOPHIL COUNT 0.1 /CUMM (0.0-0.7); ABSOLUTE GRANULOCYTE CT 5.5 /CUMM (1.4-6.5); ABSOLUTE LYMPH COUNT 1.4 /CUMM (1.2-3.4); ABSOLUTE MONOCYTE COUNT 0.4 /CUMM (0.10-0.60); BASOPHIL % 0.4 % (0.0-2.0); EOSINOPHIL % 0.8 % (0-5); HEMATOCRIT 25.5 % (42-52); MEAN CORPUSCULAR HGB 31.1 PG (27.0-31.0); MEAN CORPUSCULAR HGB CONC 32.2 G/DL (33.0-37.0); MEAN CORPUSCULAR VOLUME 96.6 FL (80.0-94.0); RBC DISTRIBUTION WIDTH 18.4 % (11.5-14.5); RED BLOOD CELL CT 2.64 /CUMM (4.70-6.10); WHITE BLOOD CELL COUNT 7.4 /CUMM (4.8-10.8)
[2018-01-19 08:39] LABS: PT 31.4 SEC (9.4-12.5)
--- NOTE | 2018-01-19 09:06 | PN- Cardiology ---
Subjective Subjective: Telemetry reviewed. Sinus rhythm throughout. Objective Vital Signs and I&Os Vital Signs Date Time Temp Pulse Resp B/P B/P Pulse O2 O2 Flow FiO2 Mean Ox Delivery Rate 01/19 0636 98.0 68 18 88/54 97 CPAP 01/19 0029 70 98 01/19 0000 96 CPAP 01/18 2233 98.1 94 18 110/64 97 01/18 2212 74 95 01/18 1434 97.8 78 18 100/54 96 Room Air Intake & Output 01/19 1600 01/19 0800 01/19 0000 01/18 1600 01/18 0800 01/18 0000 Intake Total 150 400 600 390 60 Output Total 0 0 3000 Balance 150 400 -2400 390 60 Intake, IV 200 270 60 Intake, Oral 150 400 400 120 Number 1 1 1 Bowel Movements Output, 3000 Dialysate Output, Urine 0 0 Patient 217 lb 204 lb Weight Weight Bed scale Bed scale Measurement Method Physical Exam: Gen. exam patient was comfortable sitting up in bed Head normocephalic atraumatic Eyes sclera anicteric conjunctiva showed pallor extraocular muscles were normal Neck no jugular venous distention no thyroid masses no palpable nodes no bruits Chest lungs were clear bilaterally Heart regular rhythm with a grade 2/6 midsystolic murmur in the apical area Abdomen soft nontender no organomegaly bowel sounds normal Extremities no clubbing cyanosis or edema Neurological no gross motor or sensory deficits Current Medications: Current Medications Sig/Bobo Start time Last Medication Dose Route Stop Time Status Admin Albumin Human 12.5 GM .Q30MIN PRN 01/02 1000 AC 01/04 IV 1058 Aspirin Buffered 81 MG DAILY 01/03 1000 AC 01/19 PO 0824 Atorvastatin Calcium 10 MG 01/05 1700 AC 01/18 PO 165 Bisacodyl 5 MG DAILY 01/06 1345 AC 01/19 PO 0824 Cefazolin Sodium 2 GM 01/11 1000 DC 01/16 N/A 1 UNIT IV 1231 Cinacalcet 30 MG 01/02 1700 AC 01/18 PO 165 Clopidogrel Bisulfate 75 MG 01/05 AC 01/18 PO 2203 Cyanocobalamin 1,000 MCG DAILY 01/03 1000 AC 01/19 PO 0823 Docusate Sodium 100 MG DAILY 01/03 1000 AC 01/19 PO 0824 Epoetin Jaron 4,000 UNIT MoWeFr PRN 01/06 1000 AC IV Epoetin Jaron 3,000 UNIT MoWeFr PRN 01/06 1000 AC IV Heparin Sodium 25,000 UNIT Q12H 01/14 0730 DC 01/18 (Porcine) IV 0730 Sodium Chloride 500 ML Hydrocortisone 50 MG Q12 01/19 1000 AC 01/19 PO 0823 Hydrocortisone 50 MG Q12 01/17 2200 DC 01/19 Sodium Succinate IV 01/19 0300 0045 Hydromorphone HCl 1 MG Q12 PRN 01/17 1715 AC 01/18 PO 1649 Insulin Aspart 0 TIDAC 01/13 0800 AC 01/18 SC 1743 Lidocaine/Prilocaine 1 GAVI DAILY PRN 01/02 1645 AC 01/16 TOP 0715 Melatonin 5 MG AT BEDTIME 01/18 2200 AC 01/18 PO 2203 Multivitamins 1 TAB DAILY 01/03 1000 AC 01/19 PO 0824 Patient Medication 1 ED ONE ONE 01/18 1630 DC Teaching ED 01/18 1631 Polyethylene Glycol 17 GM DAILY 01/05 1349 AC 01/11 PO 1005 Senna 187 MG AT BEDTIME 01/05 2200 AC 01/18 PO 2203 Sevelamer Carbonate 2,400 MG WM 01/02 1700 AC 01/19 PO 0823 Results Last 48 Hrs of Labs/Mics: Laboratory Tests 01/19/18 0640: Anion Gap 14, Estimated GFR 15 L, BUN/Creatinine Ratio 8.6, Total Bilirubin 0.2 , Direct Bilirubin 0.2, AST 5 L, ALT 9 L, Alkaline Phosphatase 87, Total Protein 5.5 L, Albumin 2.9 L, PT 31.4 H, INR 2.85 H, CBC w Diff Pending, WBC Pending, RBC Pending, Hgb Pending, Hct Pending, MCV Pending, MCH Pending, MCHC Pending, RDW Pending, Plt Count Pending, MPV Pending, Gran % Pending, Lymphocytes % Pending, Monocytes % Pending, Eosinophils % Pending, Basophils % Pending, Absolute Granulocytes Pending, Absolute Lymphocytes Pending, Absolute Monocytes Pending, Absolute Eosinophils Pending, Absolute Basophils Pending 01/18/18 1530: APTT Cancelled 01/18/18 1030: PT 45.8 *H, INR 4.14 *H, APTT > 120 *H 01/18/18 1000: 01/18/18 0830: 01/18/18 0330: PT 43.8 *H, INR 3.96 H 01/18/18 0330: Anion Gap 12, Estimated GFR 12 L, Glucose 123 H, Calcium 8.3 L, Phosphorus 3.2, Magnesium 2.0, Total Bilirubin 0.4, AST 5 L, ALT 16 L, Albumin 2.8 L, APTT 84 H, CBC w Diff NO MAN DIFF REQ, RBC 2.57 L, MCV 96.1 H, MCH 30.6, MCHC 31.9 L, RDW 19.3 H, MPV 9.3, Gran % 74.8, Lymphocytes % 19.2 L, Monocytes % 3.9, Eosinophils % 0.4, Basophils % 1.7, Absolute Granulocytes 4.9, Absolute Lymphocytes 1.3, Absolute Monocytes 0.3, Absolute Eosinophils 0, Absolute Basophils 0.1 01/17/18 1500: APTT 86 H Assessment/Plan Assessment/Plan In summary this 57-year-old gentleman has the following problems 1. Coronary disease by history status post coronary bypass surgery 2006 with complex PCI to the left main into the circumflex September 2017 with normal LV function 2. Hx of Hypertension, currently hypotensive with questionable adrenal insufficiency, but overall improved with treatment offered renal insufficiency. Systolic blood pressure ranges between high 80s and 110. 3. Peripheral arterial disease status post prior amputation now S/P right AKA 4. End-stage renal disease on dialysis 5. 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 Repeat YULIA to 01/02/18 was negative for vegetations; however, with severe mitral regurgitation and possible perforation 6. Diabetes 7. Fever and chills with hypotension most likely secondary to sepsis. 8. Elevated troponins, minimal, not due to ACS 9. Intermittent atrial fibrillation possibly due to sepsis, now on AC Heparin was recently discontinued due to elevated PT/INR. Is this patient although anticoagulated? This should be rechecked today. He is currently receiving antibiotics and is on dual antiplatelet agents for drug-eluting stent in the left main less than 6 months ago. He is awaiting a judicious amount of antibiotics prior to any plans for mitral valve surgery. This was eloquently discussed in yesterday his note by Bon Jimenez MD. Continue telemetry? Yes
[2018-01-19 09:30] LABS: GRANULOCYTE % 75.1 % (42.2-75.2)
--- NOTE | 2018-01-19 10:03 | Discharge Summary ---
Visit Information Visit Dates Admission Date: 12/26/17 Discharge Date: 01/19/18 Hospital Course Course Attending Physician: Kali Woods MD Primary Care Physician: Michelle MARTINEZ,Clinton Sinclair Consulting Request: Consulting Specialty: Cardiology Hospital Course: Patient is a 57-year-old male with past medical history significant for PAD s/p right BKA, ESRD on hemodialysis, CAD s/p PCI and 1 drug-eluting stent in the left main circumflex artery (September 2017) and s/p quadruple CABG (2006), diabetes, AMANDA on CPAP at night, chronic anemia, most recent admission 2.5months ago with septic arthritis and MSSA, mitral valve endocarditis, osteomyelitis, history of C. difficile - admitted on december 26 with lethargy & chills. He was admitted due to Septic shock of unclear source. Admitted to ICU from 12/26/17 to 01/17/18. Transferred to [facility] on 01/18/18. Septic shock secondary to MSSA f/b prolonged hypotension (adrenal insufficiency) Blood cultures grew Staph aureus, initially started on IV vanco f/b conversion to cefazolin IV 2 g with dialysis as MSSA. He underwent Left IJ placement and started on pressors given poor candidate for resuscitation with ESRD. He remained on pressors for a long time. [facility] which was removed secondary to MSSA bacteremia 2, pt underwent placement of RIJ TLC On 12/30 for continous need for pressors for blood pressure maintainance. Intially started on levophed f/b undergoing stump repair from right BKA to AKA for concern of stump infection although pathology did not show any significant inflammation. Also started on Albumin 12.5gm PRN(received only 1 dose). Eventually found to have low cortisol versus autonomic insufficiency. Once found to have adrenal insufficiency, started on dopamine drip (on 01/11/18) for its favourable effect on MR. He is off pressors by 01/12/18 and maintained blood pressure off pressors. started on hydrocortisone 100 mg IV q8 on 01/08/18 and slowly tapered down to 50mg Q12 now oral. His blood pressure now is around 88/50mmHg -- HOLDING at a MAP of 55-60. It also benefits his preload and maintains his cardiac output especially with the Mitral regurgitation. Discontinued metoprolol, lisinopril (home medications). Dental caries His recent CTA of the head on 01/13/18 revealed a significant periapical lucency associated with the right mandibular canine, with adjacent mandibular buccal cortical erosion, which is of unclear significance, as he appears to be asymptomatic, but, given the impending valve replacement, this should be addressed prior to the surgery. CT spine ruled out Diskitis. Low H&H Patient did receive 2 units of PRBC during his hospitalization. Once after the procedure, f/b acute drop later. H&H today is 8.2/25.5. Infective endocarditis This is a relapse. He needs 6 weeks of IV cefazolin 2gm with dialysis- Tue, tue, tuesday. His last dose on 01/18/18 was missed so received a dose today. Completed 3 weeks (23days). He needs 8 more doses of antibiotic to complete, however he needs CT surgery follow up before completion of antibiotic course. Intermittent Atrial Fibrillation Initially started on IV heparin drip for elevated troponins initially. He subsequent went in and out of A.fib presumably secondary to infection. Elevated troponin was secondary to type II however, continued heparin drip for A.fib, given mitral insufficiency, bridged with warfarin. Heparin discontinued once INR is therapeutic. INR today is 2.8, he needs to be given warfarin today. Continue warfarin 3mg daily and check INR for a goal of 2-3. Severe Mitral regurgitation with possible perforation He underwent the YULIA 01/02/18 which was negative for vegetations but did show severe mitral regurgitation giving the possibility of perforation. He likely merits Mitral valve replacement in near future. Given recent stenting in september, we will continue DAPT along with anticoagulation. He does benefit outpatient CT surgery consultation for optimal timing. Per cardio no need for cath now. Needs close cardiac follow up. CAD s/p CABG (2006) with complex PCI on LAD into LCx Consider uninteruppted DAPT (ASA and Plavix). ESRD on dialysis (MWF) He has been getting dialysis( Tue, tue, tue), closely followed by nephrology. . Continue Multivitamin, sevelamir, multivitamin. PAD s/p BKA now s/p AKA Dressing in place last on 01/18/18. No acute infection in pathology. continue DAPT. Diabetes Continue ISS AMANDA on CPAP Maintained on CPAP. DVT prophylaxis INR is therapeutic. Code status Full code Complications: Prolonged hypotension, Mitral valve regurgitation with possible perforation Allergies: Coded Allergies: midodrine (HIVES 12/26/17) Significant Procedures: CXR on 12/26/17 IMPRESSION: Findings are suspicious for left lower lobe pneumonia. Trace bilateral effusions , left base slightly greater than right. Popliteal fossa ultrasound 12/27/17 IMPRESSION: Small, nonspecific fluid collection identified in the anterior right amputation stump as described above. This collection is amenable to ultrasound-guided aspiration/drainage if clinically indicated. ECHO 12/27/17 CONCLUSIONS Normal left and right ventricular systolic function. Mild to moderate Mitral and tricuspid regurgitation. Moderate to severe Pulmonary hypertension. Cyst aspiration on 12/28/17 IMPRESSION: No focal fluid collection at the below knee amputation stump. A hypoechoic area identified on ultrasound appears to be scar tissue and/or phlegmon. The catheter and 18-gauge needle that were passed into this region were both sent for culture. Droplets of blood tinged lidocaine were aspirated from the site and were also sent. CXR on 12/30/17 IMPRESSION: Central port catheter tip at caval atrial junction. There is no pneumothorax. YULIA on 01/02/18 CONCLUSIONS Normal LV chamber size, wall thickness and systolic function. The estimated LVEF is 55%. There are no focal wall motion of modalities. The mitral valve is thickened and has poor coaptation. There is moderate mitral annular calcification. There is a possible perforation seen within the posterior leaflet. There is severe mitral regurgitation. No vegetations are seen. No cardiac vegetations are seen. PICC line insertion on 01/05/18 FINDINGS: 1. Patent left IJ vein. 2. Tip of the central venous catheter at the upper right atrium. 3. Catheter flushes and aspirates well. 4. No pneumothorax. CT abdomen and pelvis with contrast on 01/06/18 IMPRESSION: Small to moderate bilateral pleural effusions. Associated atelectasis. Additional lingular consolidation with air bronchograms which favors atelectasis , although pneumonia not excluded. Atrophic kidneys. Vascular calcifications with possible renal calculi. No hydronephrosis. Renal osteodystrophy. ECHO on 01/12/18 CONCLUSIONS Normal left ventricular systolic function with mild LVH. Severe Mitral regurgitation. Moderate Pulmonary hypertension. Mild Right ventricular enlargement. Left atrial enlargement. CTA head on 01/13/18 IMPRESSION: - Stable mild nonspecific hypoattenuation within the supratentorial white matter. No acute territorial infarcts. No pathologic enhancement intracranially. Stable scattered punctate calcifications. - No acute arterial occlusions and no significant arterial stenoses intracranially. No aneurysms. - Significant periapical lucency associated with the right mandibular canine with adjacent mandibular buccal cortical erosion. CXR 01/13/18 IMPRESSION: 1. No change in triple-lumen catheter positioning with tip in region of the right atrium. 2. Findings consistent with pulmonary edema with probable small bilateral pleural effusions. Compared to prior exam, no significant interval change is seen. Pertinent Lab Results: as above Disposition Summary Disposition Principal Diagnosis: Septic shock secondary to MSSA bacteremia Additional Diagnosis: Infective endocarditis Mitral regurgitation - possible perforation Intermittent Atrial Fibrillation on warfarin ESRD on dialysis DM PAD s/p AKA CAD s/p CABG and recent PCI with stenting in LAD and LCx on DAPT Discharge Disposition: SNF Discharge Instructions General Discharge Information Code Status: Full Code Patient's Diet: Renal dialysis diet Patient's Activity: as tolerated Follow-Up Instructions/Appts: Please follow up with your PCP in a week Please 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 Today he was started on oral hydrocortisone oral 50mg BID, please continue for the next 4 days followed by transition to 25mg BID. Please follow up with in 2 weeks in regard to adrenal insufficiency. Please be aware that patient is hypotensive and runs blood pressure in the 80s to 90s systolic. He is clinically stable with his pressures and perfusion is adequate. Medications at Discharge Discharge Medications: Stop taking the following medications: Metoprolol Tartrate (Metoprolol Tartrate) 25 MG TABLET ORAL TUESDAY, TUESDAY AND TUESDAY Lisinopril (Lisinopril) 2.5 MG TABLET ORAL DAILY Metoprolol Tartrate (Lopressor) 50 MG TABLET ORAL TWICE DAILY Continue taking these medications: [place]-3 Acid Ethyl Esters (Lovaza) 1 GRAM CAPSULE 1 Capsule ORAL TWICE DAILY Comments: NOT GIVEN IN HOSPITAL Atorvastatin Calcium (Atorvastatin Calcium) 10 MG TABLET 1 Tablet ORAL DAILY Qty = 30 Comments: Last Taken: 01/18/18 Time: 630PM Sevelamer Carbonate (Renvela) 800 MG TABLET 1 Tablet ORAL WITH MEALS Qty = 240 Comments: Last Taken:01/19/18 Time:0900 Aspirin (Ecotrin*) 81 MG TABLET.DR 1 Tablet ORAL DAILY Comments: Last Taken: 01/19/18 Time: 900AM Clopidogrel Bisulfate (Clopidogrel) 75 MG TABLET 1 Tablet ORAL DAILY Qty = 30 Comments: Last Taken: 01/19/18 Time: 900AM Cinacalcet HCl (Sensipar) 30 MG TABLET 1 Tablet ORAL DAILY Qty = 30 Comments: Last Taken: 01/18/18 Time: 2200 Metoprolol Tartrate (Metoprolol Tartrate) 25 MG TABLET 1 Milligram ORAL TWICE DAILY Qty = 60 Comments: ON Tue Last Taken: Time: Cholecalciferol (Vitamin D3) (Vitamin D3) 2,000 UNIT TABLET 3 Tablet ORAL DAILY Multivitamin (Daily Multiple Vitamin) 1 EACH TABLET 1 Tablet ORAL DAILY Comments: Last Taken:01/19/18 Time:0900 NEHPROVITES Folic Acid/Vit Bcomp,C (Dialyvite 800 Tablet) 0.8 MG TABLET 1 Tablet ORAL DAILY Comments: Last Taken:01/19/18 Time:0900 Docusate Sodium (Docusate Sodium) 100 MG CAPSULE 1 Capsule ORAL DAILY Comments: Last Taken:01/19/18 Time:0900 Cyanocobalamin (Vitamin B-12) 1,000 MCG TABLET 1 Tablet ORAL DAILY Comments: Last Taken:01/19/18 Time:0900 Famotidine (Pepcid AC) 20 MG TABLET 1 Tablet ORAL DAILY as needed for GI Sennosides (Senokot) 8.6 MG TABLET 1-2 Tablet ORAL Every night Oxycodone HCl/Acetaminophen (Percocet 5-325 MG Tablet) 5 MG-325 MG TABLET 1 Tablet ORAL EVERY 6 HOURS NEEDED as needed for PAIN Start taking the following new medications: Cefazolin Sodium/Dextrose,Iso (Cefazolin 2 Gm-D5w Bag) 2 GRAM/50 ML PIGGYBACK 2 Gram INTRAVEN TUESDAY, TUESDAY AND TUESDAY Qty = 8 No Refills Instructions: It is for endocarditis relapse. Each dose given after dialysis - TUE, TUE, TUESDAY Comments: Last Taken:01/19/18 Time:1100 Hydrocortisone (Hydrocortisone) 10 MG TABLET 50 Milligram ORAL EVERY 12 HOURS Qty = 30 No Refills Instructions: please take 50mg twice a day till 01/22/18 Please take 25mg twice a day till 01/23/18 Comments: Last Taken:01/19/18 Time:1000 Warfarin Sodium (Coumadin) 3 MG TABLET 1 Tablet ORAL DAILY Qty = 30 No Refills Comments: Last Taken:01/17/18 Time:1700 Copies To: Shruthi MARTINEZ,Erasto Newton; Abdias MARTINEZ,Slade Castaenda; Michelle MARTINEZ,Clinton Sinclair; Devaughn MARTINEZ,Homer Shannon ; Ezra MARTINEZ,Bunny Attending MD Review Statement Documenting Attending: Kali Woods MD Other Findings: Medically stable to be discharged today
[2018-01-19] MEDS ORDERED: COUMADIN3 M1 PO (10:48)
[2018-01-19] MEDS ORDERED: CEFAZOLIN2 GM/50 ML IV ×2 (10:48→13:37)
--- NOTE | 2018-01-19 11:20 | PN- Nephrology ---
Assessment/Plan Nephrology Assessment: ESRD - No HD need today. Will need continued downtitration of weight as an outpatient (will try and have the outpatient unit target 3L UF tomorrow and then continue downtitration of weight as tolerated - previous dry weight of 92kg or 203lbs). Anemia - Epogen has been increased to 7000U TIW - will tentatively plan to increase to 8000U TIW as an outpatient. MSSA bacteremia - Stump vs endocarditis. ID following - remains on abx - cefazolin 2g - will need at least a 6 week course starting on 12/27 which should be through at least Tuesday, February 07. Mitral regurg - Plans for valve replacement once off abx - closer to being at least 6 months from initiation of dual antiplatelet agents. Suggestion: -3L UF tomorrow with outpatient HD -Probable downtitration of outpatient EDW -8000U Epogen TIW as outpatient -Cefazolin 2g post-HD until at least through February 06 Please call [phone] with ?'s Subjective Subjective: HD performed yesterday No somatic complaints today - tentative plans for discharge today Objective Vital Signs and I&Os Vital Signs Date Time Temp Pulse Resp B/P B/P Pulse O2 O2 Flow FiO2 Mean Ox Delivery Rate 01/19 0636 98.0 68 18 88/54 97 CPAP 01/19 0029 70 98 01/19 0000 96 CPAP 01/18 2233 98.1 94 18 110/64 97 01/18 2212 74 95 01/18 1434 97.8 78 18 100/54 96 Room Air Intake & Output 01/19 1600 01/19 0400 01/18 1600 01/18 0400 01/17 1600 01/17 0400 Intake Total 150 400 696 58 5991 658.8 Output Total 0 0 3000 Balance 150 400 -2010 60 3326 658.8 Intake, 2500 Dialysate Intake, IV 470 60 536 358.8 Intake, Oral 150 400 520 290 300 Number 1 2 Bowel Movements Output, 3000 Dialysate Output, Urine 0 0 Patient 217 lb 204 lb 193 lb Weight Weight Bed scale Bed scale Bed scale Measurement Method Physical Exam: Gen - OK appearing HEENT - supple CV - RRR, no m/r/g Chest - decreased BS bases with scant crackles, no wheezes or rhonchi Abd - soft, NTND Ext - s/p amputation, LLE 1+ edema, LLA AVF +bruit/+thrill Neuro - AOX3, grossly nonfocal Current Medications: Current Medications Sig/Bobo Start time Last Medication Dose Route Stop Time Status Admin Albumin Human 12.5 GM .Q30MIN PRN 01/02 1000 AC 01/04 IV 1058 Aspirin Buffered 81 MG DAILY 01/03 1000 AC 01/19 PO 0824 Atorvastatin Calcium 10 MG 1700 01/05 1700 AC 01/18 PO 1651 Bisacodyl 5 MG DAILY 01/06 1345 AC 01/19 PO 0824 Cefazolin Sodium 2 GM ONCE ONE 01/19 1045 DC 01/19 N/A 1 UNIT IV 01/19 1114 1110 Cinacalcet 30 MG 1700 01/02 1700 AC 01/18 PO 1651 Clopidogrel Bisulfate 75 MG 01/05 2000 AC 01/18 PO 2203 Cyanocobalamin 1,000 MCG DAILY 01/03 1000 AC 01/19 PO 0823 Docusate Sodium 100 MG DAILY 01/03 1000 AC 01/19 PO 0824 Epoetin Jaron 4,000 UNIT MoWeFr PRN 01/06 1000 AC IV Epoetin Jaron 3,000 UNIT MoWeFr PRN 01/06 1000 AC IV Heparin Sodium 25,000 UNIT Q12H 01/14 0730 DC 01/18 (Porcine) IV 0730 Sodium Chloride 500 ML Hydrocortisone 50 MG Q12 01/19 1000 AC 01/19 PO 0823 Hydrocortisone 50 MG Q12 01/17 2200 DC 01/19 Sodium Succinate IV 01/19 0300 0045 Hydromorphone HCl 1 MG Q12 PRN 01/17 1715 AC 01/18 PO 1649 Insulin Aspart 0 TIDAC 01/13 0800 AC 01/18 SC 1743 Lidocaine/Prilocaine 1 GAVI DAILY PRN 01/02 1645 AC 01/16 TOP 0715 Melatonin 5 MG AT BEDTIME 01/18 2200 AC 01/18 PO 2203 Multivitamins 1 TAB DAILY 01/03 1000 AC 01/19 PO 0824 Patient Medication 1 ED ONE ONE 01/18 1630 DC Teaching ED 01/18 1631 Polyethylene Glycol 17 GM DAILY 01/05 1349 AC 01/11 PO 1005 Senna 187 MG AT BEDTIME 01/05 2200 AC 01/18 PO 2203 Sevelamer Carbonate 2,400 MG WM 01/02 1700 AC 01/19 PO 0823 Results Pertinent Lab Results: Laboratory Tests 01/19 01/18 01/18 0640 1530 1030 Chemistry Sodium (137 - 145 mmol/L) 137 Potassium (3.5 - 5.1 mmol/L) 3.5 Chloride (98 - 107 mmol/L) 98 Carbon Dioxide (22 - 30 mmol/L) 26 Anion Gap (5 - 16) 14 BUN (9 - 20 mg/dL) 36 H Creatinine (0.7 - 1.2 mg/dL) 4.2 H Estimated GFR (>60 ml/min) 15 L BUN/Creatinine Ratio (7 - 25 %) 8.6 Total Bilirubin (0.2 - 1.3 mg/dL) 0.2 Direct Bilirubin (< 0.4 mg/dL) 0.2 AST (17 - 59 U/L) 5 L ALT (21 - 72 U/L) 9 L Alkaline Phosphatase (< 127 U/L) 87 Total Protein (6.3 - 8.2 g/dL) 5.5 L Albumin (3.5 - 5.0 g/dL) 2.9 L Coagulation PT (9.4 - 12.5 SEC) 31.4 H 45.8 *H INR (0.90 - 1.17) 2.85 H 4.14 *H APTT (25 - 37 SEC) Cancelled > 120 *H Hematology CBC w Diff NO MAN DIFF REQ WBC (4.8 - 10.8 /CUMM) 7.4 RBC (4.70 - 6.10 /CUMM) 2.64 L Hgb (14.0 - 18.0 G/DL) 8.2 L Hct (42 - 52 %) 25.5 L MCV (80.0 - 94.0 FL) 96.6 H MCH (27.0 - 31.0 PG) 31.1 H MCHC (33.0 - 37.0 G/DL) 32.2 L RDW (11.5 - 14.5 %) 18.4 H Plt Count (/CUMM) Gran % (42.2 - 75.2 %) 75.1 Lymphocytes % (20.5 - 51.1 %) 18.8 L Monocytes % (1.7 - 9.3 %) 4.9 Eosinophils % (0 - 5 %) 0.8 Basophils % (0.0 - 2.0 %) 0.4 Absolute Granulocytes (1.4 - 6.5 /CUMM) 5.5 Absolute Lymphocytes (1.2 - 3.4 /CUMM) 1.4 Absolute Monocytes (0.10 - 0.60 /CUMM) 0.4 Absolute Eosinophils (0.0 - 0.7 /CUMM) 0.1 Absolute Basophils (0.0 - 0.2 /CUMM) 0 01/18 01/18 01/18 01/18 UNK 0830 0330 0330 Chemistry Sodium (137 - 145 mmol/L) 137 Potassium (3.5 - 5.1 mmol/L) 3.7 Chloride (98 - 107 mmol/L) 101 Carbon Dioxide (22 - 30 mmol/L) 24 Anion Gap (5 - 16) 12 BUN (9 - 20 mg/dL) 19 49 H 47 H Creatinine (0.7 - 1.2 mg/dL) 5.0 H Estimated GFR (>60 ml/min) 12 L Glucose (65 - 99 mg/dL) 123 H Calcium (8.4 - 10.2 mg/dL) 8.3 L Phosphorus (2.5 - 4.5 mg/dL) 3.2 Magnesium (1.6 - 2.3 mg/dL) 2.0 Total Bilirubin (0.2 - 1.3 mg/dL) 0.4 AST (17 - 59 U/L) 5 L ALT (21 - 72 U/L) 16 L Albumin (3.5 - 5.0 g/dL) 2.8 L Coagulation PT (9.4 - 12.5 SEC) 43.8 *H INR (0.90 - 1.17) 3.96 H APTT (25 - 37 SEC) 84 H Hematology CBC w Diff NO MAN DIFF REQ WBC (4.8 - 10.8 /CUMM) 6.6 RBC (4.70 - 6.10 /CUMM) 2.57 L Hgb (14.0 - 18.0 G/DL) 7.9 L Hct (42 - 52 %) 24.7 L MCV (80.0 - 94.0 FL) 96.1 H MCH (27.0 - 31.0 PG) 30.6 MCHC (33.0 - 37.0 G/DL) 31.9 L RDW (11.5 - 14.5 %) 19.3 H Plt Count (130 - 400 /CUMM) 154 MPV (7.4 - 10.4 FL) 9.3 Gran % (42.2 - 75.2 %) 74.8 Lymphocytes % (20.5 - 51.1 %) 19.2 L Monocytes % (1.7 - 9.3 %) 3.9 Eosinophils % (0 - 5 %) 0.4 Basophils % (0.0 - 2.0 %) 1.7 Absolute Granulocytes (1.4 - 6.5 /CUMM) 4.9 Absolute Lymphocytes (1.2 - 3.4 /CUMM) 1.3 Absolute Monocytes (0.10 - 0.60 /CUMM) 0.3 Absolute Eosinophils (0.0 - 0.7 /CUMM) 0 Absolute Basophils (0.0 - 0.2 /CUMM) 0.1 01/17 01/17 01/17 1500 0500 0230 Chemistry Sodium (137 - 145 mmol/L) 139 Potassium (3.5 - 5.1 mmol/L) 3.4 L Chloride (98 - 107 mmol/L) 101 Carbon Dioxide (22 - 30 mmol/L) 27 Anion Gap (5 - 16) 11 BUN (9 - 20 mg/dL) 32 H Creatinine (0.7 - 1.2 mg/dL) 3.8 H Estimated GFR (>60 ml/min) 17 L Glucose (65 - 99 mg/dL) 180 H Calcium (8.4 - 10.2 mg/dL) 8.5 Phosphorus (2.5 - 4.5 mg/dL) 3.1 Magnesium (1.6 - 2.3 mg/dL) 2.0 Total Bilirubin (0.2 - 1.3 mg/dL) 0.4 AST (17 - 59 U/L) 4 L ALT (21 - 72 U/L) 18 L Albumin (3.5 - 5.0 g/dL) 3.0 L Coagulation PT (9.4 - 12.5 SEC) Cancelled 22.0 H INR (0.90 - 1.17) Cancelled 2.00 H APTT (25 - 37 SEC) 86 H 70 H Hematology CBC w Diff NO MAN DIFF REQ WBC (4.8 - 10.8 /CUMM) 6.7 RBC (4.70 - 6.10 /CUMM) 2.57 L Hgb (14.0 - 18.0 G/DL) 8.0 L Hct (42 - 52 %) 24.6 L MCV (80.0 - 94.0 FL) 95.5 H MCH (27.0 - 31.0 PG) 31.0 MCHC (33.0 - 37.0 G/DL) 32.4 L RDW (11.5 - 14.5 %) 17.9 H Plt Count (130 - 400 /CUMM) 158 MPV (7.4 - 10.4 FL) 9.2 Gran % (42.2 - 75.2 %) 84.9 H Lymphocytes % (20.5 - 51.1 %) 11.7 L Monocytes % (1.7 - 9.3 %) 3.2 Eosinophils % (0 - 5 %) 0 Basophils % (0.0 - 2.0 %) 0.2 Absolute Granulocytes (1.4 - 6.5 /CUMM) 5.7 Absolute Lymphocytes (1.2 - 3.4 /CUMM) 0.8 L Absolute Monocytes (0.10 - 0.60 /CUMM) 0.2 Absolute Eosinophils (0.0 - 0.7 /CUMM) 0 Absolute Basophils (0.0 - 0.2 /CUMM) 0 01/16 1855 Coagulation APTT (25 - 37 SEC) 54 H Hematology CBC w Diff NO MAN DIFF REQ WBC (4.8 - 10.8 /CUMM) 7.9 RBC (4.70 - 6.10 /CUMM) 2.59 L Hgb (14.0 - 18.0 G/DL) 8.1 L Hct (42 - 52 %) 24.9 L MCV (80.0 - 94.0 FL) 96.1 H MCH (27.0 - 31.0 PG) 31.2 H MCHC (33.0 - 37.0 G/DL) 32.5 L RDW (11.5 - 14.5 %) 18.3 H Plt Count (130 - 400 /CUMM) 163 MPV (7.4 - 10.4 FL) 9.4 Gran % (42.2 - 75.2 %) 87.6 H Lymphocytes % (20.5 - 51.1 %) 9.7 L Monocytes % (1.7 - 9.3 %) 2.5 Eosinophils % (0 - 5 %) 0.1 Basophils % (0.0 - 2.0 %) 0.1 Absolute Granulocytes (1.4 - 6.5 /CUMM) 6.9 H Absolute Lymphocytes (1.2 - 3.4 /CUMM) 0.8 L Absolute Monocytes (0.10 - 0.60 /CUMM) 0.2 Absolute Eosinophils (0.0 - 0.7 /CUMM) 0 Absolute Basophils (0.0 - 0.2 /CUMM) 0 Imaging/Other Studies: None new
[2018-01-19 11:57] VITALS: BP 88/54
[2018-01-19] MEDS ORDERED: HYDROCORTISONE10 M2 PO (13:20)
== END 2018-01-19 15:30 | DRG 474 ==
LOC: ERH 14:43 → CRI 17:19 → ERHI 17:19 → ENRESERV 17:55 → ENTRNSPT 20:54 → EDTRNSPTSTS 20:58 → EDTRNSPT 20:58 → CRI 21:03 → CMPTRNSPT 21:14 → CRI 12-28 08:07 → ENTRNSPT 12-31 12:16 → EDTRNSPT 12-31 12:22 → EDTRNSPTSTS 12-31 12:22 → CMPTRNSPT 12-31 12:51 → 1NO 12-31 13:29 → ENRESERV 01-02 15:22 → CRI 01-02 16:25 → 1NO 01-17 20:19 → ENPENDDIS 01-19 13:21 → 1NO 01-19 15:30
PROVIDERS: Dermatology; Internal Medicine; Internal Medicine Cardiovascular Disease; Internal Medicine Critical Care Medicine; Internal Medicine Endocrinology, Diabetes & Metabolism; Internal Medicine Hematology & Oncology; Internal Medicine Infectious Disease; Internal Medicine Interventional Cardiology; Obstetrics & Gynecology; Physician Assistant; Student in an Organized Health Care Education/Training Program
PROC: 0Y6C0Z3 Detachment at Right Upper Leg, Low, Open Approach (ICD-10-PCS; principal; 2018-01-02)
PROC: 02H633Z Insertion of Infusion Device into Right Atrium, Percutaneous Approach (ICD-10-PCS; 2018-01-05)
PROC: 30233Q1 Transfusion of Nonautologous White Cells into Peripheral Vein, Percutaneous Approach (ICD-10-PCS; 2018-01-05)
PROC: 5A1D70Z Performance of Urinary Filtration, Intermittent, Less than 6 Hours Per Day (ICD-10-PCS; 2018-01-18)
DX: T87.43 Infection of amputation stump, right lower extremity (principal); A41.01 Sepsis due to Methicillin susceptible Staphylococcus aureus; I21.A1 Myocardial infarction type 2; I33.0 Acute and subacute infective endocarditis; J18.9 Pneumonia, unspecified organism; E11.22 Type 2 diabetes mellitus with diabetic chronic kidney disease; D69.6 Thrombocytopenia, unspecified; N18.6 End stage renal disease; R65.20 Severe sepsis without septic shock; E27.1 Primary adrenocortical insufficiency; I12.0 Hypertensive chronic kidney disease with stage 5 chronic kidney disease or end stage renal disease; I24.8 Other forms of acute ischemic heart disease; J98.11 Atelectasis; M86.9 Osteomyelitis, unspecified; I48.91 Unspecified atrial fibrillation; Z99.2 Dependence on renal dialysis; Z79.4 Long term (current) use of insulin; Y95 Nosocomial condition; Z95.1 Presence of aortocoronary bypass graft; R74.0 Nonspecific elevation of levels of transaminase and lactic acid dehydrogenase [LDH]
CPT/HCPCS: 1NSP; 87070; 87075; 87184; CCU; 36415; 36592; 71045; 71046; 74177; 76881; 77001; 82436; 86920; 87040; 87147; 87449; 87450; 87804; 87804-59; 88307; 93005; 93010; 93306; 93325; 96374; 97110-GO; 97112-GO; 97161-GP; 97164-GP; 97166-GO; 97530-GO; 99291; C1769; J0131; J0690; J0713; J0885; J1265; J1642; J1644; J1720; J3370; J7040; J7060; P9016; P9047